=== PATIENT | male | born 1955 | race Caucasian/White ===

== ENCOUNTER 2016-08-03 09:43 | Observation (INO) | payer OTHER ==
[~2016-08-03] VITALS: Ht 167.6 cm; Wt 96.2 kg
[~2016-08-03 09:43] MED LIST: ACHD5005 PO; ADV1DS IH; ALBU17AE3 IH; ATOR20TA66 PO; CEFU250T11 PO; CLOB15CR2 TP; CLOB15CR3 TP; FLUO20CA25 PO; HYDR200T46 PO; LEVO750T24 PO; MELO-198 PO; MTF500T PO; PRAV40TA PO; PRD20T PO; PRD50T PO; RNT150T PO; TRAM50TA2 PO
[2016-08-03] MEDS ORDERED: PATIENT MAY USE OWN MEDS, ALL PO SCH (10:30)
[2016-08-03] MEDS ORDERED: DOCUSATE SODIUM 100 MG (COLACE) CAP PO PRN (10:30)
--- OUTSIDE RECORDS SUMMARY | 2016-08-03 10:49 | XMS REPORT | Continuity of Care Document ---
Author Author [facility] Organization [facility] Address Unknown Phone Unavailable Care Team Providers Care Facer Operator Name Role Phone JOSE F VALLEJO MD PCP Insurance Providers Payer Name Policy Number Subscriber Name Relationship Self Pay Emerald Maguire 18 Self / Same As Patient Advance Directives Directive Response Recorded Date/Time Advance Directives No 08/22/14 12:57pm Health Care Power of Safety And Health Manager No 08/22/14 12:57pm Organ Donor Yes 08/22/14 12:57pm Resuscitation Status Full Code 08/22/14 12:57pm Problems No known problems or medical conditions. Medications Medication Dose Route Sig Days/Qty Instructions Order Date Discontinued Date Status Hydroxychloroquine Sulfate 400 Mg PO TWICE A DAY 04/03/12 12/12/13 Discontinued Ranitidine HCl 1 Tab PO BEDTIME 30 Qty 04/03/12 10/30/13 Discontinued Fluoxetine HCl (Prozac) 1 Each PO DAILY 04/03/12 12/12/13 Discontinued Acetaminophen/Hydrocodone Bitart 1 - 2 Each PO EVERY 6 HOURS PRN 14 Qty 04/03/12 12/12/13 Discontinued Prednisone 50 Mg PO DAILY 5 Days 04/03/12 10/30/13 Discontinued Salmeterol Xinafoate/Fluticasone 1 Puff IH TWICE A DAY 10/30/13 Active Albuterol 2 Puff IH EVERY 6 HOURS PRN SHORTNESS OF BREATH NEEDED FOR SHORTNESS OF BREATH 10/30/13 Active Clobetasol Propionate 0 TP TWICE A DAY 10/30/13 12/12/13 Discontinued Meloxicam (Mobic) 1 Each PO TWICE A DAY PRN MILD PAIN 10/30/1312/12 Discontinued Metformin HCl (Glucophage) 500 Mg PO TWICE A DAY 10/30/13 Active Clobetasol Propionate TP TWICE A DAY 12/13/13 08/22/14 Discontinued Hydroxychloroquine Sulfate 200 Mg PO DAILY 08/22/14 Active Atorvastatin 20 Mg PO DAILY 08/22/14 Active Social History Social History Problem Response Recorded Date/Time Alcohol Use Denies Use 12/12/2013 10:36pm Recreational Drug Use No 12/12/2013 10:36pm Recent Foreign Travel No 12/12/2013 10:36pm Recent Infectious Disease Exposure No 12/12/2013 10:36pm Hospitalization with Isolation Denies 12/14/2013 12:20pm Smoking Status Current Everyday Smoker 08/22/2014 1:00pm Query Response Start Date Stop Date Smoking Status Current Everyday Smoker Hospital Discharge Instructions No hospital discharge instructions. Plan of Care No plan of care. Functional Status No functional status results. Allergies, Adverse Reactions, Alerts Allergen Type Severity Reaction Status Last Updated No Known Drug Allergies Active 09/10/10 Immunizations Name Given Type Date of Pneumonia Vaccine 06/01/13 Historical Date of Influenza Vaccine 05/31/14 Historical Vital Signs Acute Vital Signs Vital Response Date/Time Temperature (Fahrenheit) 98.0 degrees F (97.6 - 99.5) Temperature (Calculated Celsius) 36.34676 degrees C (36.4 - 37.5) Temperature Source Tympanic Pulse Rate (adult) 97 bpm (60 - 90) Respiratory Rate 12 bpm (12 - 24) O2 Sat by Pulse Oximetry 90 % (88 - 100) Blood Pressure 128/82 mm Hg Blood Pressure 128/82 mm Hg Pain Pain Intensity 0 Pain Pain Intensity 0 Height (Feet) 5 feet Height (Inches) 6.00 inches Height (Calculated Centimeters) 167.877693 cm Weight (Pounds) 217 pounds Weight (Ounces) 0.5 oz Weight (Calculated Grams) 57129.720 gm Weight (Calculated Kilograms) 98.643032 kilograms Height 5 ft 6 in Weight 217 lb Body Mass Index 35.0 kg/m^2 Results Laboratory Results Test Name Result Units Flags Reference Collection Date/Time Result Date/ Time Comments Glucometer 132 MG/DL H 70-110 08/22/2014 12:44pm 08/22/2014 12:59pm Procedures Procedure Status Date Provider(s) Diagnostic colonoscopy completed 08/22/14 ROHITH WALKER DO Encounters Encounter Location Date/Time Registered [facility] 08/22/14 12:03pm Registered Clinic [facility] 08/21/14 5:52am
[2016-08-03 11:24] LABS: BASOPHILS % (AUTO) 0 % (0-10); EOSINOPHILS % (AUTO) 0 % (0-10); LYMPHOCYTES # (AUTO) 1.1 X 10^3 (1.0-4.0); LYMPHOCYTES % (AUTO) 8 % (12-44); MEAN CORPUSCULAR HEMOGLOBIN 31 PG (25-34); MEAN CORPUSCULAR HGB CONC 34 G/DL (32-36); MEAN CORPUSCULAR VOLUME 90 FL (80-99); MEAN PLATELET VOLUME 10.6 FL (7.4-10.4); MONOCYTES # (AUTO) 0.6 X 10^3 (0.0-1.0); MONOCYTES % (AUTO) 4 % (0-12); NEUTROPHILS # (AUTO) 12.5 X 10^3 (1.8-7.8); NEUTROPHILS % (AUTO) 87 % (42-75); PLATELET COUNT 209 10^3/uL (130-400); RED BLOOD COUNT 4.69 10^6/uL (4.35-5.85); RED CELL DISTRIBUTION WIDTH 12.6 % (10.0-14.5); WHITE BLOOD COUNT 14.3 10^3/uL (4.3-11.0)
[2016-08-03] MEDS: methylPREDNISolone 125 MG (Solu-MEDROL) VIAL IVP SCH ×3 (11:34→23:47)
[2016-08-03 11:44] LABS: BAND NEUTROPHILS 2 %; BASOPHILS % (MANUAL) 0 %; EOSINOPHILS % (MANUAL) 0 %; LYMPHOCYTES % (MANUAL) 10 %; NEUTROPHILS % (MANUAL) 83 %
[2016-08-03 11:48] LABS: ALANINE AMINOTRANSFERASE 41 U/L (0-55); ALBUMIN 3.7 G/DL (3.2-4.5); ANION GAP 13 MMOL/L (5-14); ASPARTATE AMINO TRANSFERASE 22 U/L (5-34); BILIRUBIN,TOTAL 0.4 MG/DL (0.1-1.0); BLOOD UREA NITROGEN 19 MG/DL (7-18); BUN/CREATININE RATIO 23; CARBON DIOXIDE 20 MMOL/L (21-32); CHLORIDE 104 MMOL/L (98-107); CREATININE SERUM 0.81 MG/DL (0.60-1.30); GFR ESTIMATED > 60; GLUCOSE 205 MG/DL (70-105); POTASSIUM 3.5 MMOL/L (3.6-5.0); SODIUM 137 MMOL/L (135-145); TOTAL PROTEIN 7.3 G/DL (6.4-8.2)
[2016-08-03 12:00] VITALS: BP 150/81
[2016-08-03] MEDS ORDERED: NS 100 ML (IVPB) BAG IV ONE (12:00)
[2016-08-03] MEDS ORDERED: IOHEXOL 350 MG/ML 100 ML (OMNIPAQUE 350) VIAL IV ONE (12:00)
[2016-08-03] MEDS ORDERED: FLU TRIvalent (5 YOA+) 2016-17 (AFLURIA) 0.5 ML IM ONE (12:15)
[2016-08-03] MEDS ORDERED: DOXY100T2 PO (12:46)
[2016-08-03] MEDS ORDERED: PIRO20CA2 PO (12:46)
[2016-08-03] MEDS ORDERED: LISI-552 PO (12:46)
[2016-08-03] MEDS ORDERED: BUDE90AE2 IH (12:46)
[2016-08-03] MEDS ORDERED: RT-ALBUINH IH (12:46)
[2016-08-03] MEDS ORDERED: ATOR40TA70 PO (12:46)
[2016-08-03] MEDS ORDERED: PRD50T PO (12:46)
[2016-08-03] MEDS ORDERED: NS IV 1000 ML 1,000 ML IV SCH ×2 (13:30→13:45)
[2016-08-03] MEDS ORDERED: CATHETER FLUSH 10 ML SYR IV PRN (14:00)
--- NOTE | 2016-08-03 15:06 | Diagnostic Imaging Report ---
PROCEDURE: CT chest with contrast only. TECHNIQUE: Multiple contiguous axial images were obtained through the chest after administration of intravenous contrast. INDICATION: Hypoxia, pulmonary fibrosis. COMPARISON: CT chest of 09/16/13. FINDINGS: Lungs and airway: Subpleural reticular opacities with mixed groundglass attenuation involving the bilateral upper lobes has not significantly changed. Reticular opacities with a small region of stacked subpleural cystic change in the left lower lobe has mildly progressed and is compatible with pulmonary fibrosis. Additional diffuse interstitial opacities throughout the lung bases are similar without additional foci of pulmonary fibrosis. Mild traction bronchiolectasis within the left lower lobe in the region of fibrosis. Otherwise, no foci of traction bronchiectasis are seen. The subpleural/peripheral locations in the lung bases are relatively spared. No pulmonary mass or suspicious nodule. Pleura: No pleural effusion or pneumothorax. Heart and mediastinum: Visualized thyroid is normal. No supraclavicular or axillary lymphadenopathy. Multiple borderline enlarged mediastinal lymph nodes are stable with a few of the larger lymph nodes as follows: 1.2 x 2.0 cm right lower paratracheal lymph node, 2 adjacent prevascular lymph nodes measuring 1.8 x 1.1 cm and a subcarinal lymph node measuring 1.2 x 1.5 cm. Borderline enlarged right hilar lymph nodes are also stable. No new intrathoracic lymphadenopathy. Normal heart size without pericardial effusion. Normal-caliber thoracic aorta. Coronary artery calcifications are present. Upper abdomen: Partially imaged hypodensity in the upper pole of the left kidney appears similar to prior CT but is incompletely evaluated. Remainder of the upper abdomen is within normal limits. Musculoskeletal: No concerning osseous lesions in the thorax. IMPRESSION: 1. Stable mid and upper lung zone reticular opacities with small region of fibrosis in the superior aspect of the left lower lobe. Findings are inconsistent with UIP. Overall, findings would favor fibrotic NSIP or chronic hypersensitivity pneumonitis. 2. Mildly enlarged mediastinal lymph nodes are stable and likely chronic reactive lymph nodes. 3. Coronary artery disease. 4. Partially imaged hypodensity in the upper pole of the right kidney. Consider renal ultrasound for further evaluation to ensure this is a cyst. Dictated by: Dictated on workstation # [id number]
[2016-08-03] MEDS ORDERED: RT-ALBUTEROL/IPRATROPIUM 3 ML (DUONEB) VIAL INH PRN (15:30)
[2016-08-03 16:00] VITALS: BP 138/82
[2016-08-03] MEDS: RT-ALBUTEROL/IPRATROPIUM 3 ML (DUONEB) VIAL INH SCH (19:10)
[2016-08-03 20:00] VITALS: BP 108/68
[2016-08-04] VITALS: BP 100/62
[2016-08-04 04:00] VITALS: BP 129/75
[2016-08-04] MEDS: methylPREDNISolone 125 MG (Solu-MEDROL) VIAL IVP SCH ×4 (05:08→23:35)
[2016-08-04] MEDS: RT-ALBUTEROL/IPRATROPIUM 3 ML (DUONEB) VIAL INH SCH ×3 (07:13→22:10)
[2016-08-04 08:00] VITALS: BP 132/76
[2016-08-04 12:15] VITALS: BP 128/72
[2016-08-04] MEDS: DOXYCYCLINE 100 MG (VIBRAMYCIN) TABLET PO SCH ×2 (12:29→23:35)
[2016-08-04] MEDS: IBUPROFEN 800 MG (MOTRIN) TAB PO SCH ×2 (12:29→17:34)
[2016-08-04] MEDS: lisINopril 20 MG (ZESTRIL) TAB PO SCH (12:30)
--- NOTE | 2016-08-04 13:23 | Diagnostic Imaging Report ---
EXAM: Bilateral kidney ultrasound. INDICATION: Cyst on the partially visualized on CT scan of the chest from 08/03/2016. FINDINGS: The right kidney is 11.2 and the left kidney is 10.9 cm in length. No hydronephrosis or focal lesion. In the upper pole, there is a 1.9 x 2.2 cm simple-appearing cyst. No solid mass identified. No hydronephrosis. The urinary bladder is empty and is not seen. IMPRESSION: Upper pole minimally complicated cyst in the right kidney. No solid mass identified. Dictated by: Dictated on workstation # [id number]
[2016-08-04] MEDS: RT-ADVAIR HFA 115/21 MCG PER PUFF IH SCH ×2 (14:11→22:10)
--- NOTE | 2016-08-04 15:56 | History & Physicial ([facility]) ---
HPI History of Present Illness: 61 yo M that presented to clinic to Dr Reyez yesterday with increasing shortness of breath. Patient has known pulmonary fibrosis but has had worsening symptoms in the last several weeks. States that just prior to kiera he started having more coughing and shortness of breath. Denies missing any doses of medication but states that he ran out of advair. Denies any fever or chills. + productive cough. Been over 2 years since his last admission for lung symptoms. Denies any URI symptoms. Long h/o tobacco use. Has Rheumatoid arthritis that is not currently being treated because of financial reasons. No home oxygen use. No recent change in medications. Decrease in endurance. States that he gets very short of breath with any activity. Denies any hemoptysis. No sick contacts recently. Denies chest pain or abdominal pain. Source: patient, RN/MD, old records Exam Limitations: no limitations Date seen by provider: Aug 04, 2016 Time seen by provider: 10:15 Attending Physician Kaya Reyez MD PCP Kaya Reyez MD Consult Date of Admission Aug 03, 2016 at 10:45 Home Medications Home Medications Reviewed patient Home Medication Reconciliation Form Allergies Coded Allergies: No Known Drug Allergies (Unverified , 09/10/10) [id number] Hx Patient Social History Living Status: lives home alone Alcohol Use: Denies Use Recreational Drug Use: No Smoking Status: Former Smoker Type Used: Cigars Recent Foreign Travel: No Contact w/other who traveled: No Physical Abuse Screen: No Sexual Abuse: No Immunizations Up To Date Date of Pneumonia Vaccine: Jun 01, 2013 Date of Influenza Vaccine: May 31, 2014 Past Medical History Rhuematoid Arthritis Pulmonary Fibrosis follows with Dr Stokes Hypertension Non Insulin Dependent DM Family Medical History Family History: Cancer G8 SISTER Family history: Diabetes mellitus G8 SISTER Review of Systems ([facility]) Constitutional: no symptoms reportedNo chills, No fever, malaiseNo weakness EENTM: no symptoms reported Respiratory: cough dyspnea on exertionNo hemoptysis, No orthopnea, short of breath wheezing Cardiovascular: no symptoms reportedNo chest pain, No edema, No palpitations, No syncope Gastrointestinal: no symptoms reportedNo abdominal pain, No constipation, No diarrhea, No heartburn, No nausea, No vomiting Genitourinary: no symptoms reportedNo dysuria, No frequency, No hematuria Musculoskeletal: back pain joint pain Skin: no symptoms reportedNo lesions, No rash Psychiatric/Neurological: No Symptoms ReportedDenies Anxiety, Denies Depressed , Denies Headache, Denies Weakness Reviewed Test Results Reviewed Test Results Lab Laboratory Tests Test 08/03/16 11:12 08/03/16 11:48 08/03/16 14:10 08/03/16 15:27 Range/Units Alanine Aminotransferase (ALT/SGPT) 41 0-55 U/L Albumin 3.7 3.2-4.5 G/DL Alkaline Phosphatase 78 40-136 U/L Anion Gap 13 5-14 MMOL/L Aspartate Amino Transf (AST/SGOT) 22 5-34 U/L BUN/Creatinine Ratio 23 Band Neutrophils 2 % Basophils # (Auto) 0.0 0.0-0.1 10^3/uL Basophils % (Manual) 0 % Basophils (%) (Auto) 0 0-10 % Blood Morphology Comment NORMAL Blood Urea Nitrogen 19 H 7-18 MG/DL Calcium Level 9.0 8.5-10.1 MG/DL Carbon Dioxide Level 20 L 21-32 MMOL/L Chloride Level 104 98-107 MMOL/L Creatinine 0.81 0.60-1.30 MG/DL Eosinophils # (Auto) 0.0 0.0-0.3 10^3/uL Eosinophils % (Manual) 0 % Eosinophils (%) (Auto) 0 0-10 % Estimat Glomerular Filtration Rate > 60 Glucose Level 205 H 70-105 MG/DL Hematocrit 42 40-54 % Hemoglobin 14.3 13.3-17.7 G/DL Lymphocytes # (Auto) 1.1 1.0-4.0 X 10^3 Lymphocytes % (Manual) 10 % Lymphocytes (%) (Auto) 8 L 12-44 % Mean Corpuscular Hemoglobin 31 25-34 PG Mean Corpuscular Hemoglobin Concent 34 32-36 G/DL Mean Corpuscular Volume 90 80-99 FL Mean Platelet Volume 10.6 H 7.4-10.4 FL Monocytes # (Auto) 0.6 0.0-1.0 X 10^3 Monocytes % (Manual) 5 % Monocytes (%) (Auto) 4 0-12 % Neutrophils # (Auto) 12.5 H 1.8-7.8 X 10^3 Neutrophils % (Manual) 83 % Neutrophils (%) (Auto) 87 H 42-75 % Platelet Count 209 130-400 10^3/uL Potassium Level 3.5 L 3.6-5.0 MMOL/L Red Blood Count 4.69 4.35-5.85 10^6/uL Red Cell Distribution Width 12.6 10.0-14.5 % Sodium Level 137 135-145 MMOL/L Total Bilirubin 0.4 0.1-1.0 MG/DL Total Protein 7.3 6.4-8.2 G/DL White Blood Count 14.3 H 4.3-11.0 10^3/uL Lactic Acid Level 3.1 *H 2.8 *H 0.5-2.0 MMOL/L Glucometer 218 H 70-110 MG/DL Test 08/03/16 19:01 08/04/16 04:53 08/04/16 10:21 Range/Units Glucometer 219 H 222 H 316 H 70-110 MG/DL Radiology of Exam: 08/03/16 CT CHEST W PROCEDURE: CT chest with contrast only. TECHNIQUE: Multiple contiguous axial images were obtained through the chest after administration of intravenous contrast. INDICATION: Hypoxia, pulmonary fibrosis. COMPARISON: CT chest of 09/16/13. FINDINGS: Lungs and airway: Subpleural reticular opacities with mixed groundglass attenuation involving the bilateral upper lobes has not significantly changed. Reticular opacities with a small region of stacked subpleural cystic change in the left lower lobe has mildly progressed and is compatible with pulmonary fibrosis. Additional diffuse interstitial opacities throughout the lung bases are similar without additional foci of pulmonary fibrosis. Mild traction bronchiolectasis within the left lower lobe in the region of fibrosis. Otherwise, no foci of traction bronchiectasis are seen. The subpleural/peripheral locations in the lung bases are relatively spared. No pulmonary mass or suspicious nodule. Pleura: No pleural effusion or pneumothorax. Heart and mediastinum: Visualized thyroid is normal. No supraclavicular or axillary lymphadenopathy. Multiple borderline enlarged mediastinal lymph nodes are stable with a few of the larger lymph nodes as follows: 1.2 x 2.0 cm right lower paratracheal lymph node, 2 adjacent prevascular lymph nodes measuring 1.8 x 1.1 cm and a subcarinal lymph node measuring 1.2 x 1.5 cm. Borderline enlarged right hilar lymph nodes are also stable. No new intrathoracic lymphadenopathy. Normal heart size without pericardial effusion. Normal-caliber thoracic aorta. Coronary artery calcifications are present. Upper abdomen: Partially imaged hypodensity in the upper pole of the left kidney appears similar to prior CT but is incompletely evaluated. Remainder of the upper abdomen is within normal limits. Musculoskeletal: No concerning osseous lesions in the thorax. IMPRESSION: 1. Stable mid and upper lung zone reticular opacities with small region of fibrosis in the superior aspect of the left lower lobe. Findings are inconsistent with UIP. Overall, findings would favor fibrotic NSIP or chronic hypersensitivity pneumonitis. 2. Mildly enlarged mediastinal lymph nodes are stable and likely chronic reactive lymph nodes. 3. Coronary artery disease. 4. Partially imaged hypodensity in the upper pole of the right kidney. Consider renal ultrasound for further evaluation to ensure this is a cyst. Date of Exam: 08/04/16 RENAL BILATERAL [id number] EXAM: Bilateral kidney ultrasound. INDICATION: Cyst on the partially visualized on CT scan of the chest from 08/03/2016. FINDINGS: The right kidney is 11.2 and the left kidney is 10.9 cm in length. No hydronephrosis or focal lesion. In the upper pole, there is a 1.9 x 2.2 cm simple-appearing cyst. No solid mass identified. No hydronephrosis. The urinary bladder is empty and is not seen. IMPRESSION: Upper pole minimally complicated cyst in the right kidney. No solid mass identified. Physical Exam-([facility]) Physical Exam Vital Signs VS - Last 72 Hours, by Label 08/03/16 08/03/16 08/03/16 08/03/16 12:00 12:00 15:22 15:25 Temp 97.9 Pulse 91 Resp 20 B/P 150/81 Pulse Ox 95 95 95 O2 Delivery Room Air Room Air Room Air 08/03/16 08/03/16 08/03/16 08/03/16 16:00 19:11 20:00 21:00 Temp 98.2 98.9 Pulse 88 106 Resp 20 20 B/P 138/82 108/68 Pulse Ox 93 90 92 O2 Delivery Room Air Room Air Room Air Room Air 08/04/16 08/04/16 08/04/16 08/04/16 00:00 04:00 07:13 08:00 Temp 96.4 96.6 96.7 Pulse 79 83 86 Resp 20 20 20 B/P 100/62 129/75 132/76 Pulse Ox 93 93 93 94 O2 Delivery Room Air Room Air Room Air Room Air 08/04/16 08/04/16 08/04/16 09:00 11:16 12:15 Temp 96.6 Pulse 84 Resp 20 B/P 128/72 Pulse Ox 92 96 O2 Delivery Room Air Room Air Room Air Capillary Refill : General Appearance: WD/WN no apparent distress HEENT: PERRL/EOMI pharynx normal Neck: non-tender full range of motion supple normal inspection Respiratory: chest non-tender normal breath sounds no respiratory distress no accessory muscle use crackles rhonchi wheezing expiration Cardiovascular: normal peripheral pulses regular rate, rhythm no edema no gallop no JVD no murmurNo systolic murmur Gastrointestinal: normal bowel sounds non tender soft no organomegaly no pulsatile massNo guarding, No rebound Back: normal inspection no CVA tenderness no vertebral tenderness Extremities: normal range of motion non-tender normal inspection no calf tenderness normal capillary refill pedal edema (1+) 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 no motor/sensory deficits alert normal mood/affect oriented x 3 Skin: normal color warm/dry Lymphatic: no adenopathy Assessment/Plan Assessment/Plan Admission Dx Respiratory distress with hypoxia Pulmonary Fibrosis Rheumatoid arthritis Hypertension Non insulin dependent DM Renal mass Hypokalemia Lactic Acidosis Plan 61 yo M with known pulmonary fibrosis that presents to clinic with increasing shortness of breath with hypoxia Plan Respiratory distress with hypoxia - Start IV steroids and antibiotics - scheduled and PRN A/A nebs - Continue home advair - Encouraged ambulation and IS Pulmonary Fibrosis: See above Rheumatoid arthritis - Needs outpatient follow up with Rheum Hypertension: Controlled, continue home meds Non insulin dependent DM - A1c pending, continue home metformin Renal mass - Abnormal CT scan, Renal US shows simple cystic mass on R upper pole of kidney, no f/u needed Hypokalemia - Replaced today, repeat BMP in AM Lactic Acidosis - fluid hydration, will repeat LA level Dispo: Likely home tomorrow DVT PPX: lovenox 40mg FEN: CHO diet Diagnosis/Problems: Clinical Quality Measures DVT/VTE Risk/Contraindication: Risk Factor Score Per Nursin RFS Level Per Nursing on Admit: 4+=Very High FÁTIMA BRADY MD Aug 04, 2016 15:56
[2016-08-04] MEDS ORDERED: KCL 20 MEQ TAB (K-DUR) PO NR (16:00)
[2016-08-04] MEDS ORDERED: ENOXAPARIN 40 MG/0.4 ML (LOVENOX) SYR SC SCH (16:00)
[2016-08-04 16:30] VITALS: BP 122/71
[2016-08-04] MEDS: metFORMIN 500 MG (GLUCOPHAGE) TAB PO SCH (17:34)
[2016-08-04 20:58] VITALS: BP 116/68
[2016-08-04] MEDS ORDERED: ATORVASTATIN 40 MG (LIPITOR) TABLET PO SCH (21:00)
[2016-08-05] VITALS: BP 120/69
[2016-08-05 04:00] VITALS: BP 131/67
[2016-08-05 04:48] LABS: BASOPHILS % (AUTO) 0 % (0-10); EOSINOPHILS % (AUTO) 0 % (0-10); LYMPHOCYTES # (AUTO) 1.2 X 10^3 (1.0-4.0); LYMPHOCYTES % (AUTO) 9 % (12-44); MEAN CORPUSCULAR HEMOGLOBIN 31 PG (25-34); MEAN CORPUSCULAR HGB CONC 34 G/DL (32-36); MEAN CORPUSCULAR VOLUME 91 FL (80-99); MEAN PLATELET VOLUME 10.6 FL (7.4-10.4); MONOCYTES # (AUTO) 0.5 X 10^3 (0.0-1.0); MONOCYTES % (AUTO) 4 % (0-12); NEUTROPHILS % (AUTO) 88 % (42-75); PLATELET COUNT 234 10^3/uL (130-400); RED BLOOD COUNT 4.14 10^6/uL (4.35-5.85); RED CELL DISTRIBUTION WIDTH 12.5 % (10.0-14.5); WHITE BLOOD COUNT 13.7 10^3/uL (4.3-11.0)
[2016-08-05 05:09] LABS: ANION GAP 10 MMOL/L (5-14); BLOOD UREA NITROGEN 26 MG/DL (7-18); BUN/CREATININE RATIO 34; CALCIUM 8.3 MG/DL (8.5-10.1); CARBON DIOXIDE 20 MMOL/L (21-32); CHLORIDE 107 MMOL/L (98-107); CREATININE SERUM 0.76 MG/DL (0.60-1.30); GFR ESTIMATED > 60; GLUCOSE 262 MG/DL (70-105); POTASSIUM 4.1 MMOL/L (3.6-5.0); SODIUM 137 MMOL/L (135-145)
[2016-08-05] MEDS ORDERED: NS IV 1000 ML 1,000 ML IV ONE (05:30)
[2016-08-05] MEDS: methylPREDNISolone 125 MG (Solu-MEDROL) VIAL IVP SCH ×2 (06:31→11:15)
[2016-08-05] MEDS: metFORMIN 500 MG (GLUCOPHAGE) TAB PO SCH (07:02)
[2016-08-05] MEDS: RT-ALBUTEROL/IPRATROPIUM 3 ML (DUONEB) VIAL INH SCH ×2 (07:02→14:23)
[2016-08-05] MEDS: RT-ADVAIR HFA 115/21 MCG PER PUFF IH SCH (07:02)
[2016-08-05] MEDS: IBUPROFEN 800 MG (MOTRIN) TAB PO SCH ×2 (07:03→11:15)
[2016-08-05 08:20] VITALS: BP 127/59
[2016-08-05] MEDS: lisINopril 20 MG (ZESTRIL) TAB PO SCH (09:16)
[2016-08-05 09:42] LABS: ABG BASE EXCESS -6.1 MMOL/L (-2.5-2.5); ABG HCO3 18 MMOL/L (23-27); ABG OXYGEN SATURATION 93 % (94-100); ABG PCO2 30 MMHG (35-45); ABG PH 7.39 (7.37-7.43); ABG PO2 64 MMHG (79-93); ABG TCO2 18.7 MMOL/L (21.0-31.0)
[2016-08-05 09:43] LABS: ALLENS TEST YES-POS; PATIENT TEMP 98.1
[2016-08-05] MEDS: DOXYCYCLINE 100 MG (VIBRAMYCIN) TABLET PO SCH (11:14)
[2016-08-05 12:00] VITALS: BP 135/67
[2016-08-05] MEDS ORDERED: PRD10T PO (12:38)
[2016-08-05] MEDS ORDERED: GLIP10TA13 PO (12:42)
--- NOTE | 2016-08-05 12:43 | Discharge Instructions ---
Discharge [facility] Discharge Medications New, Converted or Re-Newed RX: Transmitted to Pharmacy ([facility]) New Medications: Glipizide (Glipizide) 10 Mg Tablet 10 MG PO DAILY #30 TAB Prednisone (Prednisone) 10 Mg Tab 10 MG PO DAILY Take 5 x 3 Day, 4tabx 3 Day, 3tabs x 3day, 2tabs x 3day, 1tab x 3day and 1/2tab x 4 days. #47 TAB Continued Medications: Albuterol Sulfate (Ventolin Hfa) 18 Gm Hfa.aer.ad 2-4 PUFF IH Q4H PRN SHORTNESS OF BREATH INHALER Atorvastatin Calcium (Atorvastatin Calcium) 40 Mg Tablet 40 MG PO DAILY TAB Budesonide (Pulmicort Flexhaler) 90 Mcg Aer.pow.ba 2 PUFF IH BID GM Doxycycline Hyclate (Doxycycline Hyclate) 100 Mg Tablet 100 MG PO Q12H FILLED 08/02/15 #14 FOR A 7 DAY THERAPY Fluticasone/Salmeterol (Advair 250/50 Diskus) 250 Mcg/50 Mcg Inh 1 PUFF IH BID Hydroxychloroquine Sulfate (Plaquenil Nf) 200 Mg Tab 400 MG PO DAILY TAKES 2 (200 MG) TABLETS TAB Lisinopril (Lisinopril) 20 Mg Tablet 20 MG PO DAILY TAB Piroxicam (Piroxicam) 20 Mg Capsule 20 MG PO DAILY CAP Discontinued Medications: Metformin Hcl (Metformin 500 Mg) 500 Mg Tablet 500 MG PO BID Prednisone (Prednisone) 50 Mg Tab 50 MG PO DAILY FILLED 08/02/15 #5 FOR A 5 DAY THERAPY Days 5 Patient Instructions Goal/Follow Up Appt: You have a hospital follow up appt with Dr Gaitan on Aug 15 @ 1100 AM Then you will follow up with Dr Reyez your PCP Patient Instructions: - It is important to review your medications because some of them have been adjusted - Continue daily walking to help open up your lungs - Make sure you complete your antibiotics Return to The Hospital For: Worsening shortness of breath Chest pain Unable to take medications Activity & Diet Discharge Diet: ADA Diet Activity as Tolerated: Yes FÁTIMA BRADY MD Aug 05, 2016 12:41
--- NOTE | 2016-08-05 12:45 | Discharge Summary ---
Diagnosis/Chief Complaint Date of Admission Aug 03, 2016 at 10:45 Date of Discharge Aug 05 2016 Admission Diagnosis Admission Diagnosis Respiratory distress with hypoxia Pulmonary Fibrosis Rheumatoid arthritis Hypertension Non insulin dependent DM Renal mass Hypokalemia Lactic Acidosis Discharge Diagnosis Same as above Chief Complaint/HPI Chief Complaint/HPI 61 yo M that presented to clinic to Dr Reyez yesterday with increasing shortness of breath. Patient has known pulmonary fibrosis but has had worsening symptoms in the last several weeks. States that just prior to kiera he started having more coughing and shortness of breath. Denies missing any doses of medication but states that he ran out of advEmbark. Denies any fever or chills. + productive cough. Been over 2 years since his last admission for lung symptoms. Denies any URI symptoms. Long h/o tobacco use. Has Rheumatoid arthritis that is not currently being treated because of financial reasons. No home oxygen use. No recent change in medications. Decrease in endurance. States that he gets very short of breath with any activity. Denies any hemoptysis. No sick contacts recently. Denies chest pain or abdominal pain. Discharge Summary-Simple/Stand Procedures CT Chest: No acute changes, previous pulm fibrosis, no signs of acute PNA, renal mass seen Renal US: simple cystic mass Consultations Discharge Physical Examination Allergies: Coded Allergies: No Known Drug Allergies (Unverified , 09/10/10) Vitals & I&Os Vital Sign - Last 12Hours Date Time Temp Pulse Resp B/P Pulse Ox O2 Delivery O2 Flow Rate FiO2 08/05/16 08:20 98.1 104 22 127/59 95 Room Air Intake and Output 08/05/16 00:00 Intake Total 1980 ml Output Total 650 ml Balance 1330 ml General Appearance: Alert, Oriented X3, Cooperative, No Acute Distress Respiratory: Normal Air Movement, Other (Mild rhonchi at the bases bilaterally) Cardiovascular: Regular Rate, Normal S1, Normal S2, No Murmurs Abdominal: Normal Bowel Sounds, Soft, No Tenderness, No Hepatosplenomegaly, No Masses Extremities: No Clubbing, No Cyanosis, No Edema, No Tenderness/Swelling Skin: No Rashes, No Breakdown Neuro: Normal Gait, Normal Speech, Strength at 5/5 X4 Ext, Sensation Intact, Cranial Nerves 3-12 NL Psych/Mental Status: Mental Status NL, Mood NL Hospital Course See final discharge diagnosis. Radiology Reviewed of Exam: 08/03/16 CT CHEST W PROCEDURE: CT chest with contrast only. TECHNIQUE: Multiple contiguous axial images were obtained through the chest after administration of intravenous contrast. INDICATION: Hypoxia, pulmonary fibrosis. COMPARISON: CT chest of 09/16/13. FINDINGS: Lungs and airway: Subpleural reticular opacities with mixed groundglass attenuation involving the bilateral upper lobes has not significantly changed. Reticular opacities with a small region of stacked subpleural cystic change in the left lower lobe has mildly progressed and is compatible with pulmonary fibrosis. Additional diffuse interstitial opacities throughout the lung bases are similar without additional foci of pulmonary fibrosis. Mild traction bronchiolectasis within the left lower lobe in the region of fibrosis. Otherwise, no foci of traction bronchiectasis are seen. The subpleural/peripheral locations in the lung bases are relatively spared. No pulmonary mass or suspicious nodule. Pleura: No pleural effusion or pneumothorax. Heart and mediastinum: Visualized thyroid is normal. No supraclavicular or axillary lymphadenopathy. Multiple borderline enlarged mediastinal lymph nodes are stable with a few of the larger lymph nodes as follows: 1.2 x 2.0 cm right lower paratracheal lymph node, 2 adjacent prevascular lymph nodes measuring 1.8 x 1.1 cm and a subcarinal lymph node measuring 1.2 x 1.5 cm. Borderline enlarged right hilar lymph nodes are also stable. No new intrathoracic lymphadenopathy. Normal heart size without pericardial effusion. Normal-caliber thoracic aorta. Coronary artery calcifications are present. Upper abdomen: Partially imaged hypodensity in the upper pole of the left kidney appears similar to prior CT but is incompletely evaluated. Remainder of the upper abdomen is within normal limits. Musculoskeletal: No concerning osseous lesions in the thorax. IMPRESSION: 1. Stable mid and upper lung zone reticular opacities with small region of fibrosis in the superior aspect of the left lower lobe. Findings are inconsistent with UIP. Overall, findings would favor fibrotic NSIP or chronic hypersensitivity pneumonitis. 2. Mildly enlarged mediastinal lymph nodes are stable and likely chronic reactive lymph nodes. 3. Coronary artery disease. 4. Partially imaged hypodensity in the upper pole of the right kidney. Consider renal ultrasound for further evaluation to ensure this is a cyst. Date of Exam: 08/04/16 RENAL BILATERAL [id number] EXAM: Bilateral kidney ultrasound. INDICATION: Cyst on the partially visualized on CT scan of the chest from 08/03/2016. FINDINGS: The right kidney is 11.2 and the left kidney is 10.9 cm in length. No hydronephrosis or focal lesion. In the upper pole, there is a 1.9 x 2.2 cm simple-appearing cyst. No solid mass identified. No hydronephrosis. The urinary bladder is empty and is not seen. IMPRESSION: Upper pole minimally complicated cyst in the right kidney. No solid mass identified. Discussion & Recommendations 61 yo M with known RA and pulmonary fibrosis that was admitted for hypoxia. Found to have Lactic acidosis that did not resolve so it is likely chronic. Patient did not qualify for oxygen after ambulatory study. Renal mass examined and seemed to be simple cyst on Renal US. No follow up needed. ABG showed Chronic respiratory acidosis with metabolic compensation. Metformin was discontinued due to lactic acidosis. Repeat lactic acid in 2-4 weeks. Patient needs follow up with pulmonary as outpatient. Discharged with prolonged steroid taper and antibiotics. Discharge Condition at discharge stable Instructions to patient/family Please see electonic discharge instructions given to patient. Discharge Medications Reviewed and agree with Discharge Medication list on patient's Discharge Instruction sheet Clinical Quality Measures DVT/VTE Risk/Contraindication: Risk Factor Score Per Nursin RFS Level Per Nursing on Admit: 4+=Very High Copy Copies To 1: JOSE F REYEZ MD, HOLLY R MD Aug 05, 2016 12:45
[2016-08-05 15:20] VITALS: BP 135/67
== END 2016-08-05 15:24 | disposition home or self-care (01) ==
LOC: 4TH 10:45 → UNDOADMOB 10:45 → 4TH 11:00
PROVIDERS: ADMIT Family Medicine; ATTEND Family Medicine
DX: R06.00 Dyspnea, unspecified (principal); R09.02 Hypoxemia; J84.10 Pulmonary fibrosis, unspecified; M06.9 Rheumatoid arthritis, unspecified; I10 Essential (primary) hypertension; E11.9 Type 2 diabetes mellitus without complications; N28.89 Other specified disorders of kidney and ureter; E87.6 Hypokalemia; E87.2 Acidosis
CPT/HCPCS: 36415; 71260; 76770; 80048; 80053; 82805; 82962; 83036; 83605; 85007; 85025; 85027; 87040; 94640; 94664; 94760; 94761; 99211; G0378

== ENCOUNTER 2017-02-27 08:01 | Outpatient (RCR) | payer OTHER ==
[~2017-02-27 08:01] MED LIST changes: +ATOR40TA70 PO; +BUDE90AE2 IH; +DOXY100T2 PO; +GLIP10TA13 PO; +LISI-552 PO; +PIRO20CA2 PO; +PRD10T PO; +RT-ALBUINH IH
[2017-04-19] MEDS ORDERED: AZIT250T5 PO (13:18)
[2017-04-19] MEDS ORDERED: PRD20T PO (13:18)
[2017-04-19] MEDS ORDERED: ALBU2.5V4 IH (13:28)
== END 2017-04-29 | disposition home or self-care (01) ==
LOC: RT 08:01
PROVIDERS: ATTEND Internal Medicine Critical Care Medicine
DX: J44.9 Chronic obstructive pulmonary disease, unspecified (principal); J84.10 Pulmonary fibrosis, unspecified
CPT/HCPCS: 99211

== ENCOUNTER 2017-04-19 12:06 | Emergency (ER) | payer OTHER ==
[~2017-04-19] VITALS: Ht 170.2 cm; Wt 99.8 kg
--- OUTSIDE RECORDS SUMMARY | 2017-04-19 12:13 | XMS REPORT ---
Author Author JOSE F VALLEJO [facility] eClinicalWorks Address Unknown Phone Unavailable Care Team Providers Care Truck Mechanic Name Role Phone JOSE F VALLEJO Unavailable Allergies No Known Allergies Problems Problem Type Condition Code Onset Dates Condition Status Assessment 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 Active Problem Psoriasis L40.9 Active Problem Vision loss, left eye H54.62 Active Assessment Hyperlipidemia E78.5 Active Problem 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 Active Problem Hyperlipidemia E78.5 Active Problem Essential hypertension I10 Active Problem Chronic obstructive pulmonary disease, unspecified J44.9 Active Problem Idiopathic pulmonary fibrosis J84.112 Active Problem Hematochezia K92.1 Active Problem Type 2 diabetes mellitus without complication E11.9 Active Medications No Known Medications Procedures Procedure Coding System Code Date LIPID PANEL CPT-4 04519 Sep 11, 2015 COMPREHEN METABOLIC PANEL CPT-4 23107 Sep 11, 2015 COMPLETE CBC W/AUTO DIFF WBC CPT-4 40817 Sep 11, 2015 VENIPUNCT, ROUTINE* CPT-4 54513 Sep 11, 2015 Results Name Result Date Reference Range Unit Abnormality Flag ROUTINE VENIPUNCTURE Summary Purpose eClinicalWorks Submission
--- OUTSIDE RECORDS SUMMARY | 2017-04-19 12:13 | XMS REPORT ---
Author Author JOSE F VALLEJO Organization [facility] Address [address] [place] [address] Care Team Providers Care Food Safety Specialist Name Role Phone JOSE F VALLEJO Unavailable PROBLEMS Type Condition ICD9-CM Code [id number] Code Onset Dates Condition Status SNOMED Code Problem Chronic obstructive pulmonary disease, unspecified J44.9 Active 05190050 Problem Psoriasis L40.9 Active 6017656 Problem Hyperlipidemia E78.5 Active 57677732 Problem Lactic acidosis E87.2 Active 76937270 Problem Renal cyst, right N28.1 Active 24573046 Problem Idiopathic pulmonary fibrosis J84.112 Active 248438093 Problem Tobacco use Z72.0 Active 109008987 Problem Essential hypertension I10 Active 35608193 Problem 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 Active 437863271 Problem Vision loss, left eye H54.62 Active 91001244 Problem Hematochezia K92.1 Active 127687591 Problem Type 2 diabetes mellitus without complication E11.9 Active 71943376 ALLERGIES Unknown Allergies SOCIAL HISTORY No smoking Hx information available PLAN OF CARE VITAL SIGNS MEDICATIONS Medication Instructions Dosage Frequency Start Date End Date Duration Status Hydrocodone-Acetaminophen 5-325 MG Orally every 6 hrs 1 tablet as needed 6h Jul, 28 days Active RESULTS No Results PROCEDURES No Known procedures IMMUNIZATIONS No Known Immunizations
--- OUTSIDE RECORDS SUMMARY | 2017-04-19 12:13 | XMS REPORT ---
Author Author JOSE F VALLEJO [facility] eClinicalWorks Address Unknown Phone Unavailable Care Team Providers Care Supervisor/Port Director Name Role Phone JOSE F VALLEJO CP Unavailable Allergies, Adverse Reactions, Alerts Substance Reaction Event Type Naprosyn Info Not Available Drug Allergy Celebrex Info Not Available Drug Allergy Problems Problem Type Condition Code Onset Dates Condition Status Assessment Type 2 diabetes mellitus without complication E11.9 Active Problem Psoriasis L40.9 Active Problem Vision loss, left eye H54.62 Active Problem 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 Active Problem Hyperlipidemia E78.5 Active Problem Essential hypertension I10 Active Problem Chronic obstructive pulmonary disease, unspecified J44.9 Active Problem Idiopathic pulmonary fibrosis J84.112 Active Problem Hematochezia K92.1 Active Problem Type 2 diabetes mellitus without complication E11.9 Active Assessment Idiopathic pulmonary fibrosis J84.112 Active Assessment Hyperlipidemia E78.5 Active Assessment Psoriasis L40.9 Active Assessment Essential hypertension I10 Active Assessment 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 Active Medications Medication Code System Code Instructions Start Date End Date Status Dosage Metformin HCl [facility] [address]-35 500 MG Orally Twice a day Aug 17, 2015 1 tablet with meals Calcipotriene [facility] [address]-60 0.005 % Externally Twice a day October 28, 2015 1 application to affected area Piroxicam [facility] [address]-58 20 mg Orally Once a day 1 capsule with food Clobetasol Propionate [facility] [address]-45 0.05 % Externally Twice a day as needed for psoriasis January 09, 2015 1 application to affected area Hydroxychloroquine Sulfate [facility] [address]-65 200 mg Orally Once a day 2 tablet with food or milk Lipitor [facility] [address]-81 40 mg Orally Once a day 1 tablet Lisinopril [facility] [address]-69 20 mg Orally Once a day Sep 09, 2015 1 tablet Hydrocodone-Acetaminophen [facility] [address]-09 5-325 MG Orally every 6 hrs Aug 12, 2015 1 tablet as needed Advair Diskus [facility] [address]-70 250-50 MCG/DOSE Inhalation Twice a day, approximately 12 hrs apart 1 puff Ventolin HFA [facility] [address]-83 108 (90 Base) MCG/ACT Inhalation every 4 hrs 2-4 puffs as needed Procedures Procedure Coding System Code Date MICROALBUMIN, SEMIQUANT CPT-4 26331 May 05, 2016 Office Visit, Est Pt., Level 3 CPT-4 65555 May 05, 2016 GLYCATED HEMOGLOBIN TEST CPT-4 05786 May 05, 2016 Vital Signs Date/Time: May 05, 2016 Cardiac Monitoring Heart Rate 76 bpm Weight 216 lbs Height 67 in BMI 33.83 Index Blood Pressure Diastolic 92 mmHg Blood Pressure Systolic 142 mmHg Results No Known Results Summary Purpose eClinicalWorks Submission
--- OUTSIDE RECORDS SUMMARY | 2017-04-19 12:13 | XMS REPORT ---
Author Author JOSE F VALLEJO [facility] eClinicalWorks Address Unknown Phone Unavailable Care Team Providers Care Collection Team Lead Name Role Phone JOSE F VALLEJO Unavailable Allergies No Known Allergies Problems Problem Type Condition Code Onset Dates Condition Status Problem Vision loss, left eye H54.62 Active Problem Hyperlipidemia E78.5 Active Problem Hematochezia K92.1 Active Problem 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 Active Problem Idiopathic pulmonary fibrosis J84.112 Active Problem Psoriasis L40.9 Active Problem Type 2 diabetes mellitus without complication E11.9 Active Problem Chronic obstructive pulmonary disease, unspecified J44.9 Active Medications Medication Code System Code Instructions Start Date End Date Status Dosage Ventolin HFA [facility] [address]-33 108 (90 Base) MCG/ACT Inhalation every 4 hrs 2-4 puffs as needed Results No Known Results Summary Purpose eClinicalWorks Submission
--- OUTSIDE RECORDS SUMMARY | 2017-04-19 12:13 | XMS REPORT ---
Author Author JOSE F VALLEJO Organization [facility] Address [address] [place] [address] Care Team Providers Care Traffic Control Specialist Name Role Phone JOSE F VALLEJO Unavailable PROBLEMS Type Condition ICD9-CM Code [id number] Code Onset Dates Condition Status SNOMED Code Problem Chronic obstructive pulmonary disease, unspecified J44.9 Active 22486396 Problem Psoriasis L40.9 Active 9975839 Problem Hyperlipidemia E78.5 Active 67072381 Problem Lactic acidosis E87.2 Active 68814988 Problem Renal cyst, right N28.1 Active 42194409 Problem Idiopathic pulmonary fibrosis J84.112 Active 628784679 Problem Tobacco use Z72.0 Active 829009952 Problem Essential hypertension I10 Active 90544288 Problem 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 Active 122127380 Problem Vision loss, left eye H54.62 Active 30320885 Problem Hematochezia K92.1 Active 020093427 Problem Type 2 diabetes mellitus without complication E11.9 Active 18271700 ALLERGIES Substance Reaction Event Type Date Status Naprosyn Unknown Drug Allergy Jul, Active Celebrex Unknown Drug Allergy Jul, Active SOCIAL HISTORY No smoking Hx information available PLAN OF CARE Activity Details Follow Up After hospitalization Reason: VITAL SIGNS Height 67 in 2016-08-03 Weight 213.1 lbs 2016-08-03 Temperature 98.6 degrees Fahrenheit 2016-08-03 Heart Rate 117 bpm 2016-08-03 Respiratory Rate 22 2016-08-03 Oximetry ambulatin % 2016-08-03 BMI 33.37 kg/m2 2016-08-03 Blood pressure systolic 136 mmHg 2016-08-03 Blood pressure diastolic 67 mmHg 2016-08-03 MEDICATIONS Medication Instructions Dosage Frequency Start Date End Date Duration Status Ventolin HFA 108 (90 Base) MCG/ACT Inhalation every 4 hrs 2-4 puffs as needed 4h Active Calcipotriene 0.005 % Externally Twice a day 1 application to affected area 12h 30 Sep, 2015 Active Clobetasol Propionate 0.05 % Externally Twice a day as needed for psoriasis 1 application to affected area 12 Dec, 2014 Active Metformin HCl 500 MG Orally Twice a day 1 tablet with meals 12h 18 Jul, 2015 90 days Active Piroxicam 20 mg Orally Once a day 1 capsule with food 24h 90 days Active Doxycycline Hyclate 100 MG Orally every 12 hrs 1 tablet 12h Jul, 10 Jul, 2016 07 days Active Advair Diskus 250-50 MCG/DOSE Inhalation Twice a day, approximately 12 hrs apart 1 puff Active Lipitor 40 mg Orally Once a day 1 tablet 24h 90 days Active Hydroxychloroquine Sulfate 200 mg Orally Once a day 2 tablet with food or milk 24h 90 days Active PredniSONE 50 mg Orally Once a day 1 tablet 24h Jul, Jul, 05 days Active Pulmicort Flexhaler 180 MCG/ACT Inhalation Twice a day 2 puff 12h Jul, Active Hydrocodone-Acetaminophen 5-325 MG Orally every 6 hrs 1 tablet as needed 6h 13 Jul, 2015 Active Lisinopril 20 mg Orally Once a day 1 tablet 24h 10 Aug, 2015 90 days Active RESULTS No Results PROCEDURES Procedure Date Ordered Related Diagnosis Body Site MEASURE BLOOD OXYGEN LEVEL Aug 03, 2016 No Charge Aug 03, 2016 IMMUNIZATIONS No Known Immunizations
--- OUTSIDE RECORDS SUMMARY | 2017-04-19 12:13 | XMS REPORT ---
Author Author RILEY SCHRADER Organization [facility] Address [address] [place] [address] Care Team Providers Care Banquet Supervisor Name Role Phone RILEY SCHRADER Unavailable PROBLEMS Type Condition ICD9-CM Code [id number] Code Onset Dates Condition Status SNOMED Code Problem Chronic obstructive pulmonary disease, unspecified J44.9 Active 63642888 Problem Psoriasis L40.9 Active 0763494 Problem Hyperlipidemia E78.5 Active 08051641 Problem Lactic acidosis E87.2 Active 21669269 Problem Renal cyst, right N28.1 Active 07090167 Problem Idiopathic pulmonary fibrosis J84.112 Active 857902123 Problem Tobacco use Z72.0 Active 930477874 Problem Essential hypertension I10 Active 37277448 Problem 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 Active 466226792 Problem Vision loss, left eye H54.62 Active 63237563 Problem Hematochezia K92.1 Active 826385559 Problem Type 2 diabetes mellitus without complication E11.9 Active 17921994 ALLERGIES Substance Reaction Event Type Date Status Naprosyn Unknown Drug Allergy Jul, Active Celebrex Unknown Drug Allergy Jul, Active SOCIAL HISTORY No smoking Hx information available PLAN OF CARE Activity Details Follow Up after appt with Dr Stokes Reason: VITAL SIGNS Height 67 in 2016-08-16 Weight 218.6 lbs 2016-08-16 Temperature 97.8 degrees Fahrenheit 2016-08-16 Heart Rate 106 bpm 2016-08-16 Respiratory Rate 24 2016-08-16 Oximetry 97 % 2016-08-16 BMI 34.23 kg/m2 2016-08-16 Blood pressure systolic 122 mmHg 2016-08-16 Blood pressure diastolic 84 mmHg 2016-08-16 MEDICATIONS Medication Instructions Dosage Frequency Start Date End Date Duration Status Pulmicort Flexhaler 180 MCG/ACT Inhalation Twice a day 2 puff 12h Jul, Active PredniSONE 10 mg Orally 5 tabs x3 days, 4 tabs x3 days, 3 tabs x3 days, 2 tabs x3days, 1 tab x3 days, 1/2 tab x3 days 1 tablet Jul, Active GlipiZIDE 10 MG Orally Once a day 1 tablet 24h Active Advair Diskus 250-50 MCG/DOSE Inhalation Twice a day, approximately 12 hrs apart 1 puff Active Hydroxychloroquine Sulfate 200 mg Orally Once a day 2 tablet with food or milk 24h 90 days Active Lipitor 40 mg Orally Once a day 1 tablet 24h 90 days Active Lisinopril 20 mg Orally Once a day 1 tablet 24h Aug, 90 days Active Piroxicam 20 mg Orally Once a day 1 capsule with food 24h 90 days Active RESULTS No Results PROCEDURES Procedure Date Ordered Related Diagnosis Body Site MEASURE BLOOD OXYGEN LEVEL Aug 16, 2016 Office Visit, Est Pt., Level 4 Aug 16, 2016 IMMUNIZATIONS No Known Immunizations
--- OUTSIDE RECORDS SUMMARY | 2017-04-19 12:13 | XMS REPORT ---
Author Author JOSE F VALLEJO eClinicalWorks Address Unknown Phone Unavailable Care Team Providers Care Braider Operator Name Role Phone JOSE F VALLEJO Unavailable Allergies, Adverse Reactions, Alerts Substance Reaction Event Type Naprosyn 500 Mg Tablet Info Not Available Non Drug Allergy Celebrex 200 Mg Capsule Info Not Available Non Drug Allergy Problems Problem Type Condition ICD-9 Code Onset Dates Condition Status Assessment Other psoriasis 696.1 Active Problem Dysthymic disorder 300.4 Active Assessment Rheumatoid arthritis 714.0 Active Assessment Cellulitis, axillary fold 682.3 Active Problem Other and unspecified hyperlipidemia 272.4 Active Problem Rheumatoid arthritis 714.0 Active Problem COPD (chronic obstructive pulmonary disease) 496 Active Problem Idiopathic pulmonary fibrosis 516.31 Active Problem Other psoriasis 696.1 Active Problem Blood in stool 578.1 Active Problem Diabetes mellitus without mention of complication, type II or unspecified type, not stated as uncontrolled 250.00 Active Medications Medication Code System Code Instructions Start Date End Date Status Dosage Tramadol HCl [facility] [address]-18 50 MG Orally every 6 hrs Mar 31, 2015 1 tablet as needed for severe pain Ventolin HFA [facility] [address]-45 108 (90 Base) MCG/ACT Inhalation every 4 hrs 2-4 puffs as needed Clobetasol Propionate [facility] [address]-55 0.05 % Externally Twice a day as needed for psoriasis January 09, 2015 1 application to affected area Piroxicam [facility] [address]-94 20 MG Orally Once a day 1 capsule with food Bactrim DS [facility] [address]-76 800-160 MG Orally 2 times a day Mar 31, 2015 Apr 10, 2015 1 tablet Hydroxychloroquine Sulfate [facility] [address]-14 200 MG Orally Once a day 2 tablet with food or milk Advair Diskus [facility] [address]-38 250-50 MCG/DOSE Inhalation Twice a day, approximately 12 hrs apart 1 puff Lipitor [facility] [address]-28 40 MG Orally Once a day 1 tablet Procedures Procedure Coding System Code Date Office Visit, Est Pt., Level 3 CPT-4 98730 Mar 31, 2015 Vital Signs Date/Time: Mar 31, 2015 Temperature 98.8 F Weight 213.9 lbs Height 67 in BMI 33.50 Index Blood Pressure Diastolic 82 mmHg Blood Pressure Systolic 130 mmHg Cardiac Monitoring Heart Rate 84 bpm Results No Known Results Summary Purpose eClinicalWorks Submission
--- OUTSIDE RECORDS SUMMARY | 2017-04-19 12:13 | XMS REPORT ---
Author Author JOSE F VALLEJO [facility] eClinicalWorks Address Unknown Phone Unavailable Care Team Providers Care Roving Department Supervisor Name Role Phone JOSE F VALLEJO Unavailable [...] Date End Date Status Dosage Metformin HCl [facility] [place] [address]-74 500 MG Orally Twice a day Aug 17, 2015 1 tablet with meals Results No Known Results Summary Purpose eClinicalWorks Submission
--- OUTSIDE RECORDS SUMMARY | 2017-04-19 12:13 | XMS REPORT ---
Author Author JOSE F VALLEJO [facility] eClinicalWorks Address Unknown Phone Unavailable Care Team Providers Care Mental Health Social Worker Name Role Phone JOSE F VALLEJO Unavailable Allergies No Known Allergies Problems Problem Type Condition Code Onset Dates Condition Status Problem Dysthymic disorder 300.4 Active Problem Other and unspecified hyperlipidemia 272.4 [...] Instructions Start Date End Date Status Dosage Clobetasol Propionate [facility] [address]-67 0.05 % Externally Twice a day as needed for psoriasis January 09, 2015 1 application to affected area Results No Known Results Summary Purpose eClinicalWorks Submission
--- OUTSIDE RECORDS SUMMARY | 2017-04-19 12:13 | XMS REPORT ---
Author Author JOSE F VALLEJO [facility] Address [address] [place] [address] Care Team Providers Care Vehicle Service Attendant Name Role Phone JOSE F VALLJEO Unavailable PROBLEMS Type Condition ICD9-CM Code GCP43-DE Code Onset Dates Condition Status SNOMED Code Problem Chronic obstructive pulmonary disease, unspecified J44.9 Active 27614790 Problem Psoriasis L40.9 Active 7400658 Problem Hyperlipidemia E78.5 Active 47438704 Problem Lactic acidosis E87.2 Active 79473958 Problem Renal cyst, right N28.1 Active 22512332 Problem Idiopathic pulmonary fibrosis J84.112 Active 805493152 Problem Tobacco use Z72.0 Active 197476726 Problem Essential hypertension I10 Active 11776162 Problem 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 Active 697197384 Problem Vision loss, left eye H54.62 Active 16687925 Problem Hematochezia K92.1 Active 592342728 Problem Type 2 diabetes mellitus without complication E11.9 Active 27137764 ALLERGIES Unknown Allergies SOCIAL HISTORY No smoking Hx information available PLAN OF CARE VITAL SIGNS MEDICATIONS Medication Instructions Dosage Frequency Start Date End Date Duration Status Hydroxychloroquine Sulfate 200 mg Orally Once a day 2 tablet with food or milk 24h 90 days Active Piroxicam 20 mg Orally Once a day 1 capsule with food 24h 90 days Active PredniSONE 10 mg Orally 5 tabs x3 days, 4 tabs x3 days, 3 tabs x3 days, 2 tabs x3days, 1 tab x3 days, 1/2 tab x3 days 1 tablet Jul, Active Lisinopril 20 mg Orally Once a day 1 tablet 24h Aug, 90 days Active GlipiZIDE 10 MG Orally Once a day 1 tablet 24h Active Lipitor 40 mg Orally Once a day 1 tablet 24h 90 days Active Ventolin HFA 108 (90 Base) MCG/ACT Inhalation every 4 hrs 2-4 puffs as needed 4h Active Advair Diskus 250-50 MCG/DOSE Inhalation Twice a day, approximately 12 hrs apart 1 puff Active Pulmicort Flexhaler 180 MCG/ACT Inhalation Twice a day 2 puff 12h Jul, Active RESULTS No Results PROCEDURES No Known procedures IMMUNIZATIONS No Known Immunizations
--- OUTSIDE RECORDS SUMMARY | 2017-04-19 12:14 | XMS REPORT ---
Author Author JOSE F VALLEJO Organization [facility] Address [address] [place] [address] Care Team Providers Care Senior Geologist Name Role Phone JOSE F VALLEJO Unavailable PROBLEMS Type Condition ICD9-CM Code [id number] Code Onset Dates Condition Status SNOMED Code Problem Chronic obstructive pulmonary disease, unspecified J44.9 Active 41781125 Problem Psoriasis L40.9 Active 3760748 Problem Hyperlipidemia E78.5 Active 47564783 Problem Lactic acidosis E87.2 Active 36935370 Problem Renal cyst, right N28.1 Active 05009519 Problem Idiopathic pulmonary fibrosis J84.112 Active 885909602 Problem Tobacco use Z72.0 Active 845133768 Problem Essential hypertension I10 Active 99124747 Problem 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 Active 535450775 Problem Vision loss, left eye H54.62 Active 74747079 Problem Hematochezia K92.1 Active 676825490 Problem Type 2 diabetes mellitus without complication E11.9 Active 78542599 ALLERGIES Substance Reaction Event Type Date Status Naprosyn Unknown Drug Allergy Jul, Active Celebrex Unknown Drug Allergy Jul, Active SOCIAL HISTORY No smoking Hx information available PLAN OF CARE Activity Details Follow Up 1 day Reason:Breathing f/u VITAL SIGNS Height 67 in 2016-08-02 Weight 214.0 lbs 2016-08-02 Temperature 98.0 degrees Fahrenheit 2016-08-02 Heart Rate 104 bpm 2016-08-02 Respiratory Rate 24 2016-08-02 Oximetry ambulating w/o oxygen:90 % 2016-08-02 BMI 33.51 kg/m2 2016-08-02 Blood pressure systolic 140 mmHg 2016-08-02 Blood pressure diastolic 78 mmHg 2016-08-02 MEDICATIONS Medication Instructions Dosage Frequency Start Date End Date Duration Status Pulmicort Flexhaler 180 MCG/ACT Inhalation Twice a day 2 puff 12h Jul, Active Hydrocodone-Acetaminophen 5-325 MG Orally every 6 hrs 1 tablet as needed 6h 13 Jul, 2015 Active Piroxicam 20 mg Orally Once a day 1 capsule with food 24h 90 days Active Calcipotriene 0.005 % Externally Twice a day 1 application to affected area 12h 30 Sep, 2015 Active Metformin HCl 500 MG Orally Twice a day 1 tablet with meals 12h 18 Jul, 2015 90 days Active Hydroxychloroquine Sulfate 200 mg Orally Once a day 2 tablet with food or milk 24h 90 days Active Clobetasol Propionate 0.05 % Externally Twice a day as needed for psoriasis 1 application to affected area 12 Dec, 2014 Active PredniSONE 50 mg Orally Once a day 1 tablet 24h Jul, 8 Jul, 2016 05 days Active Doxycycline Hyclate 100 MG Orally every 12 hrs 1 tablet 12h Jul, 10 Jul, 2016 07 days Active Advair Diskus 250-50 MCG/DOSE Inhalation Twice a day, approximately 12 hrs apart 1 puff Active Lisinopril 20 mg Orally Once a day 1 tablet 24h 10 Aug, 2015 90 days Active Lipitor 40 mg Orally Once a day 1 tablet 24h 90 days Active Ventolin HFA 108 (90 Base) MCG/ACT Inhalation every 4 hrs 2-4 puffs as needed 4h Active RESULTS Name Result Date Reference Range Xray : Chest (IN HOUSE) 2016-08-02 PROCEDURES Procedure Date Ordered Related Diagnosis Body Site MEASURE BLOOD OXYGEN LEVEL Aug 02, 2016 CHEST X-RAY Aug 02, 2016 Office Visit, Est Pt., Level 3 Aug 02, 2016 IMMUNIZATIONS No Known Immunizations
--- OUTSIDE RECORDS SUMMARY | 2017-04-19 12:14 | XMS REPORT ---
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 Active Problem Hyperlipidemia E78.5 Active Problem Hematochezia K92.1 Active Problem 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 Active Problem Idiopathic pulmonary fibrosis J84.112 Active Problem Psoriasis L40.9 Active Problem Type 2 diabetes mellitus without complication E11.9 Active Problem Chronic obstructive pulmonary disease, unspecified J44.9 Active Medications Medication Code System Code Instructions Start Date End Date Status Dosage Hydrocodone-Acetaminophen [facility] [address]-24 5-325 MG Orally every 6 hrs Aug 12, 2015 1 tablet as needed Advair Diskus [facility] [address]-88 250-50 MCG/DOSE Inhalation Twice a day, approximately 12 hrs apart 1 puff Hydroxychloroquine Sulfate [facility] [address]-18 200 MG Orally Once a day 2 tablet with food or milk Ventolin HFA [facility] [address]-92 108 (90 Base) MCG/ACT Inhalation every 4 hrs 2-4 [place] [address]-06 40 MG Orally Once a day 1 tablet Clobetasol Propionate [facility] [address]-75 0.05 % Externally Twice a day as needed for psoriasis January 09, 2015 1 application to affected area Piroxicam [facility] [address]-88 20 MG Orally Once a day 1 capsule with food Procedures Procedure Coding System Code Date MICROALBUMIN, SEMIQUANT CPT-4 99304 Aug 12, 2015 Office Visit, Est Pt., Level 3 CPT-4 88165 Aug 12, 2015 GLYCATED HEMOGLOBIN TEST CPT-4 40118 Aug 12, 2015 Vital Signs Date/Time: Aug 12, 2015 Temperature 98.5 F Weight 220.0 lbs Height 67 in BMI 34.45 Index Blood Pressure Diastolic 82 mmHg Blood Pressure Systolic 132 mmHg Cardiac Monitoring Heart Rate 90 bpm Results Name Result Date Reference Range Unit Abnormality Flag MICROALBUMIN, URINE (IN HOUSE) ----A:C (IN HOUSE) <30mg/g [id number] ----CRE 200mg/dl [id number] ----ALB 30mg/l [id number] ----Color yellow [id number] ----MICROALBUMIN normal [id number] ----Lot # [id number] ----Exp date [id number] ----Clarity clear [id number] Summary Purpose eClinicalWorks Submission
--- OUTSIDE RECORDS SUMMARY | 2017-04-19 12:14 | XMS REPORT ---
Author Author JOSE F VALLEJO [facility] e[employer] Address Unknown Phone Unavailable Care Team Providers Care Airline Ticket Agent Name Role Phone JOSE F VALLEJO Unavailable Allergies No Known Allergies Problems Problem Type Condition ICD-9 Code Onset Dates Condition Status Problem Dysthymic [...] Instructions Start Date End Date Status Dosage Advair Diskus [facility] [address]-16 250-50 MCG/DOSE Inhalation Twice a day, approximately 12 hrs apart 1 puff Results No Known Results Summary Purpose eClinicalWorks Submission
--- OUTSIDE RECORDS SUMMARY | 2017-04-19 12:14 | XMS REPORT ---
Author Author JOSE F VALLEJO [facility] [employer] Address Unknown Phone Unavailable Care Team Providers Care Inspection Manager Name Role Phone JOSE F VALLEJO Unavailable [...] not stated as uncontrolled 250.00 Active Medications No Known Medications Results No Known Results Summary Purpose eClinicalWorks Submission
--- OUTSIDE RECORDS SUMMARY | 2017-04-19 12:14 | XMS REPORT ---
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
--- OUTSIDE RECORDS SUMMARY | 2017-04-19 12:14 | XMS REPORT ---
Author Author JOSE F VALLEJO Organization [facility] Address [address] [place] [address] Care Team Providers Care Service Assistant Name Role Phone JOSE F VALLEJO Unavailable PROBLEMS Type Condition ICD9-CM Code WRO70-CR Code Onset Dates Condition Status SNOMED Code Problem Chronic obstructive pulmonary disease, unspecified J44.9 Active 58552886 Problem Psoriasis L40.9 Active 7948953 Problem Hyperlipidemia E78.5 Active 49573770 Problem Lactic acidosis E87.2 Active 38660307 Problem Renal cyst, right N28.1 Active 42666035 Problem Idiopathic pulmonary fibrosis J84.112 Active 401026939 Problem Tobacco use Z72.0 Active 231380183 Problem Essential hypertension I10 Active 46439019 Problem 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 Active 314033630 Problem Vision loss, left eye H54.62 Active 60194528 Problem Hematochezia K92.1 Active 202651834 Problem Type 2 diabetes mellitus without complication E11.9 Active 19082262 ALLERGIES Unknown Allergies SOCIAL HISTORY No smoking Hx information available PLAN OF CARE VITAL SIGNS MEDICATIONS Medication Instructions Dosage Frequency Start Date End Date Duration Status Advair Diskus 250-50 MCG/DOSE Inhalation Twice a day, approximately 12 hrs apart 1 puff Active Ventolin HFA 108 (90 Base) MCG/ACT Inhalation every 4 hrs 2-4 puffs as needed 4h Active RESULTS No Results PROCEDURES No Known procedures IMMUNIZATIONS No Known Immunizations
[2017-04-19] MEDS ORDERED: ASPIRIN 81 MG CHEW (CHILDREN'S ASA) PO ONE (12:15)
--- NOTE | 2017-04-19 12:23 | ED Respiratory ---
General Stated Complaint: SOA/COUGH CHEST PAIN Source: patient Exam Limitations: no limitations History of Present Illness Time seen by provider: 12:23 Initial Comments To ER with reports of shortness of breath for the past 5 days roughly. No fevers or chills. He does have a productive cough which is unusual for him. He does have wheezing that he is noticed. He smokes one pack per day and has done so for greater than 40 years. He does have some chest pain but states this is worsened by deep breathing. Chest pain just started this morning. Timing/Duration: week Severity: moderate Associated Symptoms: cough, shortness of breath, wheezing Allergies and Home Medications Allergies Coded Allergies: No Known Drug Allergies (Unverified , 09/10/10) Home Medications Albuterol Sulfate 18 Gm Hfa.aer.ad, 2-4 PUFF IH Q4H PRN for SHORTNESS OF BREATH, (Reported) Atorvastatin Calcium 40 Mg Tablet, 40 MG PO DAILY, (Reported) Azithromycin 250 Mg Tablet, 250 MG PO UD, #6 TAKE 2 TABLETS ON DAY ONE THEN TAKE 1 TABLET DAILY FOR FOUR MORE DAYS Prescribed by: JOHANNE DE LOS SANTOS on 04/19/17 1318 Budesonide 90 Mcg Aer.pow.ba, 2 PUFF IH BID, (Reported) Doxycycline Hyclate 100 Mg Tablet, 100 MG PO Q12H, (Reported) FILLED 08/02/15 #14 FOR A 7 DAY THERAPY Fluticasone/Salmeterol 250 Mcg/50 Mcg Inh, 1 PUFF IH BID, (Reported) Glipizide 10 Mg Tablet, 10 MG PO DAILY, #30 Prescribed by: FÁTIMA BRADY on 08/05/16 1242 Hydroxychloroquine Sulfate 200 Mg Tab, 400 MG PO DAILY, (Reported) TAKES 2 (200 MG) TABLETS Lisinopril 20 Mg Tablet, 20 MG PO DAILY, (Reported) Piroxicam 20 Mg Capsule, 20 MG PO DAILY, (Reported) Prednisone 10 Mg Tab, 10 MG PO DAILY, #47 Take 5 x 3 Day, 4tabx 3 Day, 3tabs x 3day, 2tabs x 3day, 1tab x 3day and 1/ 2tab x 4 days. Prescribed by: FÁTIMA BRADY on 08/05/16 1238 Prednisone 20 Mg Tab, 40 MG PO DAILY, #8 Prescribed by: JOHANNE DE LOS SANTOS on 04/19/17 1318 Constitutional: see HPI EENTM: see HPI Respiratory: see HPI, cough, short of breath, wheezing Genitourinary: no symptoms reported Musculoskeletal: no symptoms reported Skin: no symptoms reported Psychiatric/Neurological: No Symptoms Reported Hematologic/Lymphatic: No Symptoms Reported Immunological/Allergic: no symptoms reported Past Jrexdhg-Aqvamb-Mbliuw Hx Patient Social History Type Used: Cigars Immunizations Up To Date Date of Pneumonia Vaccine: Jun 01, 2013 Date of Influenza Vaccine: May 31, 2014 Seasonal Allergies Seasonal Allergies: No Surgeries History of Surgeries: No Respiratory History of Respiratory Disorde: Yes (COPD) Respiratory Disorders: COPD Currently Using CPAP: No Currently Using BIPAP: No Cardiovascular History of Cardiac Disorders: No Neurological History of Neurological Disord: No Reproductive System Hx Reproductive Disorders: No Genitourinary History of Genitourinary Disor: No Gastrointestinal History of Gastrointestinal Di: No Musculoskeletal History of Musculoskeletal Dis: Yes Musculoskeletal Disorders: Rheumatoid Arthritis Endocrine History of Endocrine Disorders: Yes Endocrine Disorders: Diabetes, Non-Insulin dep HEENT History of HEENT Disorders: No Loss of Vision: Left Cancer History of Cancer: No Psychosocial History of Psychiatric Problem: No Integumentary History of Skin or Integumenta: Yes Skin/Integumentary Disorders: Psoriasis Blood Transfusions History of Blood Disorders: No Adverse Reaction to a Blood Tr: No Family Medical History Family Medial History: Cancer G8 SISTER Family history: Diabetes mellitus G8 SISTER Physical Exam Vital Signs Vital Sign - Last 12Hours 04/19/17 12:10 Temp 98.8 Pulse 108 Resp 18 B/P (MAP) 107/78 Pulse Ox 95 O2 Delivery Room Air Capillary Refill : General Appearance: WD/WN, no apparent distress Eyes: Bilateral Eye Normal Inspection, Bilateral Eye PERRL, Bilateral Eye EOMI HEENT: PERRL/EOMI, normal ENT inspection Neck: non-tender, full range of motion Respiratory: decreased breath sounds, crackles, wheezing Cardiovascular: regular rate, rhythm, no murmur Gastrointestinal: normal bowel sounds, non tender, soft Neurologic/Psychiatric: alert, normal mood/affect, oriented x 3 Skin: normal color, warm/dry Progress/Results/Core Measures Results/Orders Lab Results Laboratory Tests Test 04/19/17 12:23 Range/Units White Blood Count 16.1 H 4.3-11.0 10^3/uL Red Blood Count 4.56 4.35-5.85 10^6/uL Hemoglobin 14.0 13.3-17.7 G/DL Hematocrit 42 40-54 % Mean Corpuscular Volume 92 80-99 FL Mean Corpuscular Hemoglobin 31 25-34 PG Mean Corpuscular Hemoglobin Concent 33 32-36 G/DL Red Cell Distribution Width 13.9 10.0-14.5 % Platelet Count 284 130-400 10^3/uL Mean Platelet Volume 10.5 H 7.4-10.4 FL Neutrophils (%) (Auto) 75 42-75 % Lymphocytes (%) (Auto) 11 L 12-44 % Monocytes (%) (Auto) 12 0-12 % Eosinophils (%) (Auto) 1 0-10 % Basophils (%) (Auto) 0 0-10 % Neutrophils # (Auto) 12.1 H 1.8-7.8 X 10^3 Lymphocytes # (Auto) 1.8 1.0-4.0 X 10^3 Monocytes # (Auto) 2.0 H 0.0-1.0 X 10^3 Eosinophils # (Auto) 0.2 0.0-0.3 10^3/uL Basophils # (Auto) 0.1 0.0-0.1 10^3/uL Neutrophils % (Manual) 77 % Lymphocytes % (Manual) 10 % Monocytes % (Manual) 7 % Eosinophils % (Manual) 2 % Basophils % (Manual) 2 % Reactive Lymphocytes 2 % Blood Morphology Comment NORMAL Prothrombin Time 13.7 12.2-14.7 SEC INR Comment 1.0 0.8-1.4 Activated Partial Thromboplast Time 30 24-35 SEC Sodium Level 132 L 135-145 MMOL/L Potassium Level 3.7 3.6-5.0 MMOL/L Chloride Level 102 98-107 MMOL/L Carbon Dioxide Level 23 21-32 MMOL/L Anion Gap 7 5-14 MMOL/L Blood Urea Nitrogen 18 7-18 MG/DL Creatinine 0.87 0.60-1.30 MG/DL Estimat Glomerular Filtration Rate > 60 BUN/Creatinine Ratio 21 Glucose Level 212 H 70-105 MG/DL Calcium Level 8.9 8.5-10.1 MG/DL Magnesium Level 1.5 L 1.8-2.4 MG/DL Total Bilirubin 1.1 H 0.1-1.0 MG/DL Aspartate Amino Transf (AST/SGOT) 11 5-34 U/L Alanine Aminotransferase (ALT/SGPT) 33 0-55 U/L Alkaline Phosphatase 84 40-136 U/L Myoglobin 49.6 10.0-92.0 NG/ML Troponin I < 0.30 <0.30 NG/ML B-Type Natriuretic Peptide 40.3 <100.0 PG/ML Total Protein 7.5 6.4-8.2 GM/DL Albumin 3.7 3.2-4.5 GM/DL My Orders Orders - JOHANNE DE LOS SANTOS SHAKE BACKBOARD NOTCHER Cbc With Automated Diff (04/19/17 12:15) Magnesium (04/19/17 12:15) Cardiac Profile 1 (04/19/17 12:15) Comprehensive Metabolic Panel (04/19/17 12:15) Myoglobin Serum (04/19/17 12:15) Protime With Inr (04/19/17 12:15) Partial Thromboplastin Time (04/19/17 12:15) O2 (04/19/17 12:15) Monitor-Rhythm Ecg Trace Only (04/19/17 12:15) Lipid Panel (04/20/17 06:00) Aspirin Chewable Tablet (Baby Aspirin Ch (04/19/17 12:15) Saline Lock/Iv-Start (04/19/17 12:15) BNP (04/19/17 12:15) Methylprednisolone Sod Succ (Solu-Medrol (04/19/17 12:30) Albuterol/Ipra Inhalation Soln (Duoneb I (04/19/17 12:30) Svn Sm Volume Nebulizer Rt-Rfs (04/19/17 12:18) Manual Differential (04/19/17 12:23) Albuterol/Ipra Inhalation Soln (Duoneb I (04/19/17 13:30) Svn Sm Volume Nebulizer Rt-Rfs (04/19/17 13:25) Albuterol Pre-Mix Nebs (Rt) (Proventil P (04/19/17 13:30) Medications Given in ED Current Medications Medications Dose Ordered Sig/Sara Route Start Time Stop Time Status Last Admin Dose Admin Albuterol/ Ipratropium 3 ml ONCE ONCE INH 04/19/17 12:30 04/19/17 12:31 DC 04/19/17 12:24 3 ML Aspirin 324 mg ONCE ONCE PO 04/19/17 12:15 04/19/17 12:17 DC 04/19/17 12:43 324 MG Methylprednisolone Sodium Succinate 125 mg ONCE ONCE IVP 04/19/17 12:30 04/19/17 12:31 DC 04/19/17 12:43 125 MG Vital Signs/I&O Vital Sign - Last 12Hours 04/19/17 04/19/17 12:10 12:27 Temp 98.8 Pulse 108 Resp 18 B/P (MAP) 107/78 Pulse Ox 95 92 O2 Delivery Room Air Room Air Diagnostic Imaging Diagonstic Imaging: Xray Comments NAME: EMERALD SHAH MED REC#: [id number] PT STATUS: REG ER : 1955 PHYSICIAN: CHAPIN ROSE MD ADMIT DATE: 04/19/17/ER Draft Date of Exam:04/19/17 CHEST PA/LAT (2 VIEW) INDICATION: Difficulty breathing, chest pain. EXAMINATION: PA and lateral chest. FINDINGS: The heart size and pulmonary vascularity are within normal limits. There is interstitial fibrosis in the lungs which was present on the prior CT from 08/03/2016. There are no consolidating alveolar infiltrates. There are no effusions or pneumothoraces. IMPRESSION: Interstitial fibrosis. Dictated on workstation # [id number] Dict: 04/19/17 1301 Trans: 04/19/17 1304 [id number] Interpreted by: LEONEL ESCOBEDO MD Electronically signed by: Departure Impression Impression: Primary Impression: COPD exacerbation Disposition: 01 HOME, SELF-CARE Condition: Stable Departure-Patient Inst. Decision time for Depature: 13:16 Referrals: JOSE F VALLEJO MD (PCP/Family) Primary Care Physician Patient Instructions: Chronic Obstructive Pulmonary Disease (COPD), Including Emphysema Add. Discharge Instructions: 1. Return to ER for any concerns 2. Take steroids and antibiotics as directed 3. See your doctor later this week Scripts Albuterol Sulfate (Albuterol Sulfate) 2.5 Mg/3 Ml Vial.neb 2.5 MG IH Q4H Y for WHEEZING, #25 EA Prov: JOHANNE DE LOS SANTOS SHAKE BACKBOARD NOTCHER 04/19/17 Azithromycin (Azithromycin) 250 Mg Tablet 250 MG PO UD, #6 TAB TAKE 2 TABLETS ON DAY ONE THEN TAKE 1 TABLET DAILY FOR FOUR MORE DAYS Prov: JOHANNE DE LOS SANTOS APRN 04/19/17 Prednisone (Prednisone) 20 Mg Tab 40 MG PO DAILY, #8 TAB Prov: JOHANNE DE LOS SANTOS APRN 04/19/17 JOHANNE DE LOS SANTOS APRN Apr 19, 2017 12:23
[2017-04-19] MEDS ORDERED: RT-ALBUTEROL/IPRATROPIUM 3 ML (DUONEB) VIAL INH ONE ×2 (12:30→13:30)
[2017-04-19] MEDS ORDERED: methylPREDNISolone 125 MG (Solu-MEDROL) VIAL IVP ONE (12:30)
[2017-04-19 12:37] LABS: BASOPHILS # (AUTO) 0.1 10^3/uL (0.0-0.1); BASOPHILS % (AUTO) 0 % (0-10); EOSINOPHILS # (AUTO) 0.2 10^3/uL (0.0-0.3); EOSINOPHILS % (AUTO) 1 % (0-10); LYMPHOCYTES # (AUTO) 1.8 X 10^3 (1.0-4.0); LYMPHOCYTES % (AUTO) 11 % (12-44); MEAN CORPUSCULAR HEMOGLOBIN 31 PG (25-34); MEAN CORPUSCULAR HGB CONC 33 G/DL (32-36); MEAN CORPUSCULAR VOLUME 92 FL (80-99); MEAN PLATELET VOLUME 10.5 FL (7.4-10.4); MONOCYTES % (AUTO) 12 % (0-12); NEUTROPHILS # (AUTO) 12.1 X 10^3 (1.8-7.8); NEUTROPHILS % (AUTO) 75 % (42-75); PLATELET COUNT 284 10^3/uL (130-400); RED BLOOD COUNT 4.56 10^6/uL (4.35-5.85); RED CELL DISTRIBUTION WIDTH 13.9 % (10.0-14.5); WHITE BLOOD COUNT 16.1 10^3/uL (4.3-11.0)
[2017-04-19 12:47] LABS: PROTHROMBIN TIME PATIENT 13.7 SEC (12.2-14.7)
[2017-04-19 12:58] LABS: ALANINE AMINOTRANSFERASE 33 U/L (0-55); ALBUMIN 3.7 GM/DL (3.2-4.5); ANION GAP 7 MMOL/L (5-14); ASPARTATE AMINO TRANSFERASE 11 U/L (5-34); BILIRUBIN,TOTAL 1.1 MG/DL (0.1-1.0); BLOOD UREA NITROGEN 18 MG/DL (7-18); BUN/CREATININE RATIO 21; CALCIUM 8.9 MG/DL (8.5-10.1); CARBON DIOXIDE 23 MMOL/L (21-32); CHLORIDE 102 MMOL/L (98-107); CREATININE SERUM 0.87 MG/DL (0.60-1.30); GFR ESTIMATED > 60; GLUCOSE 212 MG/DL (70-105); MAGNESIUM 1.5 MG/DL (1.8-2.4); POTASSIUM 3.7 MMOL/L (3.6-5.0); SODIUM 132 MMOL/L (135-145); TOTAL PROTEIN 7.5 GM/DL (6.4-8.2)
--- NOTE | 2017-04-19 13:04 | Diagnostic Imaging Report ---
INDICATION: Difficulty breathing, chest pain. EXAMINATION: PA and lateral chest. FINDINGS: The heart size and pulmonary vascularity are within normal limits. There is interstitial fibrosis in the lungs which was present on the prior CT from 08/03/2016. There are no consolidating alveolar infiltrates. There are no effusions or pneumothoraces. IMPRESSION: Interstitial fibrosis. Dictated by: Dictated on workstation # [id number]
[2017-04-19 13:05] LABS: MYOGLOBIN SERUM 49.6 NG/ML (10.0-92.0)
[2017-04-19] MEDS ORDERED: PRD20T PO (13:18)
[2017-04-19] MEDS ORDERED: AZIT250T12 PO (13:18)
[2017-04-19 13:25] LABS: BASOPHILS % (MANUAL) 2 %; EOSINOPHILS % (MANUAL) 2 %; LYMPHOCYTES % (MANUAL) 10 %; NEUTROPHILS % (MANUAL) 77 %; REACTIVE LYMPHOCYTES 2 %
[2017-04-19] MEDS ORDERED: ALBU2.5V4 IH (13:28)
[2017-04-19] MEDS ORDERED: RT-ALBUTEROL SULF 2.5 MG/3 ML PRE-MIX VIAL IH SCH (13:30)
[2017-04-19 13:58] VITALS: BP 117/71
== END 2017-04-19 13:58 | disposition home or self-care (01) ==
LOC: EDUNIT# 12:06 → ER 12:08
DX: J44.1 Chronic obstructive pulmonary disease with (acute) exacerbation; E11.9 Type 2 diabetes mellitus without complications; M06.9 Rheumatoid arthritis, unspecified; Z87.2 Personal history of diseases of the skin and subcutaneous tissue; Z80.9 Family history of malignant neoplasm, unspecified
CPT/HCPCS: 36415; 71020; 80053; 83735; 83874; 83880; 84484; 85007; 85027; 85610; 85730; 93005; 93041; 94640; 96374

== ENCOUNTER 2017-05-02 13:23 | Outpatient (RCR) | payer OTHER ==
[~2017-05-02 13:23] MED LIST changes: +ALBU2.5V4 IH; +AZIT250T12 PO
[2017-05-04] MEDS ORDERED: ACHD5005 PO (09:53)
[2017-05-04] MEDS ORDERED: ALBU2.5V4 NEB (15:07)
[2017-05-04] MEDS ORDERED: FLUT1DIS26 IH (15:42)
[2017-05-04] MEDS ORDERED: GLIP5TAB13 PO (15:42)
[2017-05-04] MEDS ORDERED: METH2.5T PO (15:58)
[2017-05-04] MEDS ORDERED: FOLI1TAB24 PO (15:58)
[2017-05-04] MEDS ORDERED: HYDR200T46 PO (15:58)
[2017-05-06] MEDS ORDERED: DOXY100T19 PO (09:46)
[2017-05-06] MEDS ORDERED: PRD20T PO (09:46)
== END 2017-07-31 | disposition home or self-care (01) ==
LOC: PULM 13:23
PROVIDERS: ATTEND Internal Medicine Critical Care Medicine
DX: J44.9 Chronic obstructive pulmonary disease, unspecified (principal); J84.10 Pulmonary fibrosis, unspecified

== ENCOUNTER 2017-05-04 09:28 | Inpatient (IN) | payer OTHER ==
[~2017-05-04] VITALS: Ht 170.2 cm; Wt 99.8 kg
[~2017-05-04 09:28] MED LIST changes: -AZIT250T12 PO; +AZIT250T5 PO
[2017-05-04] MEDS ORDERED: HYDR-3812 PO (09:53)
[2017-05-04] MEDS ORDERED: RT-ALBUTEROL/IPRATROPIUM 3 ML (DUONEB) VIAL INH ONE (10:00)
[2017-05-04] MEDS ORDERED: RT-IPRATROPIUM (ATROVENT) 0.5MG/2.5ML AMP IH ONE (10:16)
[2017-05-04] MEDS ORDERED: RT-ALBUTEROL SULF 2.5 MG/3 ML PRE-MIX VIAL ONE (10:16)
--- NOTE | 2017-05-04 10:19 | ED Respiratory ---
General Chief Complaint: Respiratory Problems Stated Complaint: COPD Nursing Triage Note: PT CO OF COPD SYMPTOMS, SOB Source: patient Exam Limitations: no limitations History of Present Illness Time seen by provider: 10:15 Initial Comments The patient's a 61-year-old white male who presents with complaints of COPD and shortness of breath. He continues to smoke 2 packs are slightly more daily. He was admitted in early July 2016 for exacerbation of COPD. He apparently did the respiratory clinic in January and more recently saw Dr. Stokes on 05/02. He is awaiting insurance certification for repeat pulmonary clinic Activities. He reports that he has been continually short of breath and especially with the walking over the past week. He is not aware of fever. He denies significant sputum production. Timing/Duration: week, getting worse Prior Episodes/Possible Cause: occasional episodes Modifying Factors: Improves With Albuterol Inhaler Associated Symptoms: chest pain/soreness (right lower anterior rib margin) Allergies and Home Medications Allergies Coded Allergies: No Known Drug Allergies (Unverified , 09/10/10) Home Medications Albuterol Sulfate 18 Gm Hfa.aer.ad, 2-4 PUFF IH Q4H PRN for SHORTNESS OF BREATH, (Reported) Atorvastatin Calcium 40 Mg Tablet, 40 MG PO DAILY, (Reported) Fluticasone/Salmeterol 250 Mcg/50 Mcg Inh, 1 PUFF IH BID, (Reported) Glipizide 10 Mg Tablet, 10 MG PO DAILY, #30 Prescribed by: FÁTIMA BRADY on 08/05/16 1242 Hydrocodone/Acetaminophen 1 Each Tablet, (Reported) Lisinopril 20 Mg Tablet, 20 MG PO DAILY, (Reported) Piroxicam 20 Mg Capsule, 20 MG PO DAILY, (Reported) Constitutional: see HPI EENTM: no symptoms reported Respiratory: see HPI, cough, dyspnea on exertion, short of breath, wheezing Cardiovascular: no symptoms reported Gastrointestinal: no symptoms reported Genitourinary: no symptoms reported Musculoskeletal: no symptoms reported Skin: no symptoms reported Psychiatric/Neurological: No Symptoms Reported Hematologic/Lymphatic: No Symptoms Reported Immunological/Allergic: no symptoms reported Past Yazmbav-Xkpojo-Iefaav Hx Patient Social History Alcohol Use: Denies Use Recreational Drug Use: No Smoking Status: Current Everyday Smoker Type Used: Cigars Recent Foreign Travel: No Contact w/Someone Who Travel: No Recent Infectious Disease Expo: No Recent Hopitalizations: No Physical Abuse: No Sexual Abuse: No Immunizations Up To Date Date of Pneumonia Vaccine: Jun 01, 2013 Date of Influenza Vaccine: May 31, 2014 Seasonal Allergies Seasonal Allergies: No Surgeries History of Surgeries: No Respiratory History of Respiratory Disorde: Yes Respiratory Disorders: COPD Currently Using CPAP: No Currently Using BIPAP: No Cardiovascular History of Cardiac Disorders: No Cardiac Disorders: Hypertension Neurological History of Neurological Disord: No Reproductive System Hx Reproductive Disorders: No Genitourinary History of Genitourinary Disor: No Gastrointestinal History of Gastrointestinal Di: No Musculoskeletal History of Musculoskeletal Dis: Yes Musculoskeletal Disorders: Rheumatoid Arthritis Endocrine History of Endocrine Disorders: Yes Endocrine Disorders: Diabetes, Non-Insulin dep HEENT History of HEENT Disorders: No Loss of Vision: Left Cancer History of Cancer: No Psychosocial History of Psychiatric Problem: No Suicide Risk Score: 0 Integumentary History of Skin or Integumenta: Yes Skin/Integumentary Disorders: Psoriasis Blood Transfusions History of Blood Disorders: No Adverse Reaction to a Blood Tr: No Family Medical History Family Medial History: Cancer G8 SISTER Family history: Diabetes mellitus G8 SISTER Physical Exam Vital Signs Vital Sign - Last 12Hours 05/04/17 09:30 Temp 98.1 Pulse 110 Resp 24 B/P (MAP) 119/76 Pulse Ox 97 O2 Delivery Nasal Cannula O2 Flow Rate 2.00 Capillary Refill : Less Than 3 Seconds General Appearance: mild distress, moderate distress Eyes: Bilateral Eye Normal Inspection HEENT: normal ENT inspection Neck: full range of motion Respiratory: crackles, rhonchi (diffuse) Cardiovascular: normal peripheral pulses, regular rate, rhythm, no edema, no gallop, no JVD, no murmur Gastrointestinal: normal bowel sounds, non tender, soft, no organomegaly, no pulsatile mass Extremities: normal range of motion Neurologic/Psychiatric: cell builder II-XII nml as tested, no motor/sensory deficits, alert, normal mood/affect, oriented x 3 Skin: normal color, warm/dry, cyanosis, cool, diaphoresis, damp Lymphatic: no adenopathy Progress/Results/Core Measures Results/Orders Lab Results Laboratory Tests Test 05/04/17 10:10 Range/Units White Blood Count 18.8 H 4.3-11.0 10^3/uL Red Blood Count 4.30 L 4.35-5.85 10^6/uL Hemoglobin 13.1 L 13.3-17.7 G/DL Hematocrit 40 40-54 % Mean Corpuscular Volume 92 80-99 FL Mean Corpuscular Hemoglobin 31 25-34 PG Mean Corpuscular Hemoglobin Concent 33 32-36 G/DL Red Cell Distribution Width 13.2 10.0-14.5 % Platelet Count 339 130-400 10^3/uL Mean Platelet Volume 10.3 7.4-10.4 FL Neutrophils (%) (Auto) 84 H 42-75 % Lymphocytes (%) (Auto) 7 L 12-44 % Monocytes (%) (Auto) 6 0-12 % Eosinophils (%) (Auto) 2 0-10 % Basophils (%) (Auto) 0 0-10 % Neutrophils # (Auto) 15.9 H 1.8-7.8 X 10^3 Lymphocytes # (Auto) 1.2 1.0-4.0 X 10^3 Monocytes # (Auto) 1.2 H 0.0-1.0 X 10^3 Eosinophils # (Auto) 0.5 H 0.0-0.3 10^3/uL Basophils # (Auto) 0.1 0.0-0.1 10^3/uL Neutrophils % (Manual) 83 % Lymphocytes % (Manual) 7 % Monocytes % (Manual) 6 % Eosinophils % (Manual) 2 % Basophils % (Manual) 0 % Band Neutrophils 2 % Blood Morphology Comment NORMAL Sodium Level 133 L 135-145 MMOL/L Potassium Level 4.2 3.6-5.0 MMOL/L Chloride Level 102 98-107 MMOL/L Carbon Dioxide Level 22 21-32 MMOL/L Anion Gap 9 5-14 MMOL/L Blood Urea Nitrogen 15 7-18 MG/DL Creatinine 0.89 0.60-1.30 MG/DL Estimat Glomerular Filtration Rate > 60 BUN/Creatinine Ratio 17 Glucose Level 262 H 70-105 MG/DL Calcium Level 9.0 8.5-10.1 MG/DL Total Bilirubin 0.8 0.1-1.0 MG/DL Aspartate Amino Transf (AST/SGOT) 12 5-34 U/L Alanine Aminotransferase (ALT/SGPT) 17 0-55 U/L Alkaline Phosphatase 83 40-136 U/L Total Protein 7.4 6.4-8.2 GM/DL Albumin 3.3 3.2-4.5 GM/DL My Orders Orders - MAURI DICKERSON MD Cbc With Automated Diff (05/04/17 09:56) Comprehensive Metabolic Panel (05/04/17 09:56) Chest 1 View, Ap/Pa Only (05/04/17 09:56) Albuterol/Ipra Inhalation Soln (Duoneb I (05/04/17 10:00) Svn Sm Volume Nebulizer Rt-Rfs (05/04/17 09:56) Ipratropium 0.02% Neb Solution (Atrovent (05/04/17 10:16) Albuterol Pre-Mix Nebs (Rt) (Proventil P (05/04/17 10:16) Manual Differential (05/04/17 10:10) Methylprednisolone Sod Succ (Solu-Medrol (05/04/17 11:45) Medications Given in ED Current Medications Medications Dose Ordered Sig/Sara Route Start Time Stop Time Status Last Admin Dose Admin Albuterol Sulfate 2.5 mg STK-MED ONCE .ROUTE 05/04/17 10:16 05/04/17 10:24 DC 05/04/17 10:28 15 MG Albuterol/ Ipratropium 3 ml ONCE ONCE INH 05/04/17 10:00 05/04/17 10:01 DC 05/04/17 10:17 3 ML Ipratropium Avinger 0.5 mg STK-MED ONCE IH 05/04/17 10:16 05/04/17 10:24 DC 05/04/17 10:29 0.5 MG Vital Signs/I&O Vital Sign - Last 12Hours 05/04/17 05/04/17 05/04/17 09:30 10:18 10:29 Temp 98.1 Pulse 110 Resp 24 B/P (MAP) 119/76 Pulse Ox 97 94 98 O2 Delivery Nasal Cannula Nasal Cannula O2 Flow Rate 2.00 2.00 Blood Pressure Mean: 90 Departure Communication (Admissions) Progress Notes The patient shows a rather minimal improvement when reexamined at 1135. When his O2 is removed his SaO2 falls into the mid 80s. Discussed with the Dr. Gaitan at 1140 in the patient will be admitted. Impression Impression: Primary Impression: COPD exacerbation Disposition: ADMITTED INPATIENT Condition: Stable/Unchanged Admissions Decision to Admit Reason: Admit from ER (General) Decision to Admit/Date: May 04, 2017 Time/Decision to Admit Time: 11:40 Transfer Time Spoke to Accepting Phy: 11:40 Departure-Patient Inst. Referrals: JOSE F VALLEJO MD (PCP/Family) Primary Care Physician MAURI DICKERSON MD May 04, 2017 10:19
[2017-05-04 10:25] LABS: BASOPHILS # (AUTO) 0.1 10^3/uL (0.0-0.1); BASOPHILS % (AUTO) 0 % (0-10); EOSINOPHILS # (AUTO) 0.5 10^3/uL (0.0-0.3); EOSINOPHILS % (AUTO) 2 % (0-10); LYMPHOCYTES # (AUTO) 1.2 X 10^3 (1.0-4.0); LYMPHOCYTES % (AUTO) 7 % (12-44); MEAN CORPUSCULAR HEMOGLOBIN 31 PG (25-34); MEAN CORPUSCULAR HGB CONC 33 G/DL (32-36); MEAN CORPUSCULAR VOLUME 92 FL (80-99); MEAN PLATELET VOLUME 10.3 FL (7.4-10.4); MONOCYTES # (AUTO) 1.2 X 10^3 (0.0-1.0); MONOCYTES % (AUTO) 6 % (0-12); NEUTROPHILS # (AUTO) 15.9 X 10^3 (1.8-7.8); NEUTROPHILS % (AUTO) 84 % (42-75); PLATELET COUNT 339 10^3/uL (130-400); RED CELL DISTRIBUTION WIDTH 13.2 % (10.0-14.5); WHITE BLOOD COUNT 18.8 10^3/uL (4.3-11.0)
[2017-05-04 10:41] LABS: ALANINE AMINOTRANSFERASE 17 U/L (0-55); ALBUMIN 3.3 GM/DL (3.2-4.5); ANION GAP 9 MMOL/L (5-14); ASPARTATE AMINO TRANSFERASE 12 U/L (5-34); BILIRUBIN,TOTAL 0.8 MG/DL (0.1-1.0); BLOOD UREA NITROGEN 15 MG/DL (7-18); BUN/CREATININE RATIO 17; CARBON DIOXIDE 22 MMOL/L (21-32); CHLORIDE 102 MMOL/L (98-107); CREATININE SERUM 0.89 MG/DL (0.60-1.30); GFR ESTIMATED > 60; GLUCOSE 262 MG/DL (70-105); POTASSIUM 4.2 MMOL/L (3.6-5.0); SODIUM 133 MMOL/L (135-145); TOTAL PROTEIN 7.4 GM/DL (6.4-8.2)
[2017-05-04 10:42] LABS: BAND NEUTROPHILS 2 %; BASOPHILS % (MANUAL) 0 %; EOSINOPHILS % (MANUAL) 2 %; LYMPHOCYTES % (MANUAL) 7 %; NEUTROPHILS % (MANUAL) 83 %
--- NOTE | 2017-05-04 10:54 | Diagnostic Imaging Report ---
EXAMINATION: Portable upright radiograph of the chest. INDICATION: Shortness of breath. COMPARISON: 04/19/2017. FINDINGS: There is moderate cardiomegaly with prominent interstitial markings which have a significant chronic component. A slight increase in the density in the lung bases when compared to 04/19/2017 could be from artifacts of superimposition of tissues on this portable radiograph compared to the previous PA and lateral views. No definite new airspace consolidation. A component of minimal vascular congestion is possible. No effusion or pneumothorax. The mediastinum and yanet appear unremarkable. IMPRESSION: Cardiomegaly with question of minimal vascular congestion. There is background chronic interstitial thickening. No definite focal infiltrate. Dictated by: Dictated on workstation # [id number]
[2017-05-04] MEDS ORDERED: methylPREDNISolone 125 MG (Solu-MEDROL) VIAL IVP ONE (11:45)
[2017-05-04 12:35] VITALS: BP 111/59
[2017-05-04] MEDS ORDERED: CATHETER FLUSH 10 ML SYR IV PRN (13:00)
[2017-05-04] MEDS ORDERED: RT-ALBUTEROL/IPRATROPIUM 3 ML (DUONEB) VIAL INH PRN (13:30)
--- NOTE | 2017-05-04 14:14 | Pulmonary Consultation ---
History of Present Illness History of Present Illness Date of Consultation 05/04/17 14:08 Time Seen by Provider: 14:08 Date of Admission History of Present Illness 61yo with hx of COPD with persistent tobacco use of 2 pks per day. Pt's last hospitalization was 07/2016 secondary to COPDAE. pt presented to ED secondary to persistent worsening SOB syed with exertion. I am consulted for pulmonary management. Allergies and Home Medications Allergies Coded Allergies: No Known Drug Allergies (Unverified , 09/10/10) Home Medications Albuterol Sulfate 18 Gm Hfa.aer.ad, 2 PUFF IH Q4H PRN for SHORTNESS OF BREATH, ( Reported) Albuterol Sulfate 2.5 Mg/3 Ml Vial.neb, 2.5 MG NEB Q6H PRN for SHORTNESS OF BREATH, (Reported) Atorvastatin Calcium 40 Mg Tablet, 40 MG PO HS, (Reported) Fluticasone/Salmeterol 1 Each Blst.w.dev, 1 PUFF IH BID PRN for SHORTNESS OF BREATH, (Reported) Glipizide 5 Mg Tablet, 10 MG PO BID, (Reported) LAST RECEIVED #360 01-13-17 TAKES 2 (5MG) TABLETS Hydrocodone/Acetaminophen 1 Each Tablet, 1 TAB PO Q6H PRN for PAIN-MODERATE, ( Reported) Lisinopril 20 Mg Tablet, 20 MG PO DAILY, (Reported) Piroxicam 20 Mg Capsule, 20 MG PO DAILY, (Reported) Past Oatkgzf-Wcqupc-Rcecjj Hx Patient Social History Alcohol Use: Denies Use Recreational Drug Use: No Smoking Status: Current Everyday Smoker Type Used: Cigarettes Recent Foreign Travel: No Contact w/Someone Who Travel: No Recent Infectious Disease Expo: No Recent Hopitalizations: Yes (PT STATES "LAST TEN DAYS") Physical Abuse: No Sexual Abuse: No Immunizations Up To Date Date of Pneumonia Vaccine: Jun 01, 2013 Date of Influenza Vaccine: May 31, 2014 Seasonal Allergies Seasonal Allergies: No Surgeries History of Surgeries: No Respiratory History of Respiratory Disorde: Yes Respiratory Disorders: COPD Currently Using CPAP: No Currently Using BIPAP: No Cardiovascular History of Cardiac Disorders: No Cardiac Disorders: Hypertension Neurological History of Neurological Disord: No Reproductive System Hx Reproductive Disorders: No Genitourinary History of Genitourinary Disor: No Gastrointestinal History of Gastrointestinal Di: No Musculoskeletal History of Musculoskeletal Dis: Yes Musculoskeletal Disorders: Rheumatoid Arthritis Endocrine History of Endocrine Disorders: Yes (TYPE 2 DIABETES) Endocrine Disorders: Diabetes, Non-Insulin dep HEENT History of HEENT Disorders: No Loss of Vision: Left Cancer History of Cancer: No Psychosocial History of Psychiatric Problem: No Suicide Risk Score: 0 Integumentary History of Skin or Integumenta: No Skin/Integumentary Disorders: Psoriasis Blood Transfusions History of Blood Disorders: No Adverse Reaction to a Blood Tr: No Family Medical History Family Medial History: Cancer G8 SISTER Family history: Diabetes mellitus G8 SISTER Review of Systems Time Seen by Provider: 15:47 Constitutional: Weakness, Malaise, No: Fever, Chills, Sweats, Other Eyes: No: Pain, Vision change, Conjunctivae inflammation, Eyelid inflammation, Other, Redness ENT: No: Ear pain, Ear discharge, Nose pain, Nose discharge, Nose congestion, Mouth pain, Mouth swelling, Throat pain, Throat swelling, Other Respiratory: Cough, Dry, Shortness of breath, SOB with excertion Cardiovascular: Palpitations, No: Chest Pain, Orthopnea, Paroxysmal Noc. Dyspnea, Edema, Lt Headedness, Other Exam Exam Vital Signs Date Time Temp Pulse Resp B/P (MAP) Pulse Ox O2 Delivery O2 Flow Rate FiO2 05/04/17 12:35 97.8 109 24 111/59 99 Nasal Cannula 2.00 05/04/17 12:24 117 22 98 Nasal Cannula 2.00 05/04/17 10:29 98 05/04/17 10:18 94 Nasal Cannula 2.00 05/04/17 09:30 98.1 110 24 119/76 97 Nasal Cannula 2.00 General Appearance: No Apparent Distress, Anxious HEENT: PERRL/EOMI, Normal ENT Inspection, Pharynx Normal Neck: Normal Inspection, Non Tender, Supple Respiratory: No Respiratory Distress, Decreased Breath Sounds Cardiovascular: Regular Rate, Rhythm, No Edema, No Murmur, Normal Peripheral Pulses Capillary Refill: Less Than 3 Seconds Gastrointestinal: normal bowel sounds, non tender, soft, no organomegaly, no pulsatile mass Extremity: Normal Capillary Refill, Normal Inspection, Normal Range of Motion Neurologic/Psychiatric: Alert, Oriented x3 Skin: Normal Color, Warm/Dry Lymphatic: No Adenopathy Results Lab Laboratory Tests 05/04/17 10:10 Assessment/Plan Assessment/Plan COPDAE with worsening SOB -oxygen -Solumedrol -Check ABG -Probable pneumonia with sepsis -Start zosyn -agustin culture -SVNs -LA -IVF NS 150cc/hr -check influenza swab Sinus tachycardia -IVF Dehydration Obesity CXR and labs reviewed 255 Clinical Quality Measures DVT/VTE Risk/Contraindication: Risk Factor Score Per Nursin RFS Level Per Nursing on Admit: 4+=Very High CABRERA RAMIREZ DO May 04, 2017 14:14
[2017-05-04] MEDS ORDERED: PIPERACILLIN SODIUM/TAZOBACTAM 4.5 GM in NS (IVPB) 100 ML IV SCH (14:30)
[2017-05-04] MEDS ORDERED: PIPERACILLIN/TAZOBACTAM 4.5 GM/NS 100 ML IV NR ×2 (14:30)
[2017-05-04] MEDS: RT-ALBUTEROL/IPRATROPIUM 3 ML (DUONEB) VIAL INH SCH ×3 (14:57→21:51)
[2017-05-04] MEDS ORDERED: ALBU2.5V4 NEB (15:07)
[2017-05-04] MEDS ORDERED: INFLUENZA TRIvalent 2017-2018 0.5 ML/45 MCG SYR IM ONE (15:15)
[2017-05-04 15:39] LABS: ABG BASE EXCESS -3.1 MMOL/L (-2.5-2.5); ABG HCO3 21 MMOL/L (23-27); ABG OXYGEN SATURATION 93 % (94-100); ABG PCO2 33 MMHG (35-45); ABG PH 7.41 (7.37-7.43); ABG PO2 62 MMHG (79-93); ABG TCO2 21.8 MMOL/L (21.0-31.0); ALLENS TEST POSITIVE
[2017-05-04 15:40] LABS: PATIENT TEMP 97.7
[2017-05-04] MEDS ORDERED: FLUT1DIS26 IH (15:42)
[2017-05-04] MEDS ORDERED: GLIP5TAB13 PO (15:42)
[2017-05-04] MEDS: CATHETER FLUSH 10 ML SYR IV SCH ×2 (15:43→20:54)
[2017-05-04 15:44] VITALS: BP 104/68
[2017-05-04] MEDS: inSUlin (REGULAR) HUMAN 1 UNIT/0.01 ML (CHARGE PER UNIT) SC SCH ×2 (15:49→20:54)
[2017-05-04 15:58] LABS: BILIRUBIN,URINE NEGATIVE (NEGATIVE); KETONES,URINE NEGATIVE (NEGATIVE); LEUKOCYTE ESTERASE ,URINE 1+ (NEGATIVE); NITRITE,URINE NEGATIVE (NEGATIVE); PH,URINE 5 (5-9); PROTEIN,URINE 2+ (NEGATIVE); UROBILINOGEN,URINE 1 MG/DL (NORMAL)
[2017-05-04] MEDS ORDERED: FOLI1TAB24 PO (15:58)
[2017-05-04] MEDS ORDERED: METH2.5T PO (15:58)
[2017-05-04] MEDS ORDERED: HYDR200T46 PO (15:58)
[2017-05-04 16:06] LABS: GRANULAR CASTS,URINE RARE /LPF
[2017-05-04] MEDS: NS IV 1000 ML 1,000 ML IV SCH ×2 (16:24→22:44)
[2017-05-04 16:28] VITALS: BP 119/76
[2017-05-04] MEDS ORDERED: NS IV 1000 ML 1,000 ML IV SCH ×2 (17:30→20:00)
[2017-05-04] MEDS ORDERED: RX-HYDROCODONE/APAP 5/325 MG #4 TAB PK PO PRN (19:15)
[2017-05-04 19:54] VITALS: BP 98/62
[2017-05-04] MEDS ORDERED: HYDROcodone/APAP 5 MG/325 MG (LORTAB) TAB PO PRN (20:15)
[2017-05-04 20:24] VITALS: BP 98/62
[2017-05-04] MEDS: methylPREDNISolone 125 MG (Solu-MEDROL) VIAL IV SCH (20:53)
[2017-05-04] MEDS: ATORVASTATIN 40 MG (LIPITOR) TABLET PO SCH (20:53)
[2017-05-04] MEDS: PIPERACILLIN/TAZOBACTAM 4.5 GM/NS 100 ML IVPB IV SCH ×2 (21:59)
[2017-05-05 00:38] VITALS: BP 109/58
[2017-05-05] MEDS: RT-ALBUTEROL/IPRATROPIUM 3 ML (DUONEB) VIAL INH SCH ×6 (02:43→21:43)
[2017-05-05 04:10] VITALS: BP 109/59
[2017-05-05 04:43] LABS: ABG BASE EXCESS -4.5 MMOL/L (-2.5-2.5); ABG HCO3 20 MMOL/L (23-27); ABG OXYGEN SATURATION 95 % (94-100); ABG PCO2 33 MMHG (35-45); ABG PH 7.39 (7.37-7.43); ABG PO2 73 MMHG (79-93); ABG TCO2 20.7 MMOL/L (21.0-31.0)
[2017-05-05 04:44] LABS: ALLENS TEST YES-POS; PATIENT TEMP 97.7
[2017-05-05] MEDS: PIPERACILLIN/TAZOBACTAM 4.5 GM/NS 100 ML IVPB IV SCH ×6 (04:55→20:48)
[2017-05-05] MEDS: CATHETER FLUSH 10 ML SYR IV SCH ×3 (05:04→21:11)
[2017-05-05] MEDS: methylPREDNISolone 125 MG (Solu-MEDROL) VIAL IV SCH ×3 (05:04→21:11)
[2017-05-05] MEDS: NS IV 1000 ML 1,000 ML IV SCH (05:35)
[2017-05-05] MEDS: inSUlin (REGULAR) HUMAN 1 UNIT/0.01 ML (CHARGE PER UNIT) SC SCH ×4 (05:51→21:11)
[2017-05-05] MEDS: glipiZIDE 5 MG (GLUCOTROL) TAB PO SCH ×2 (05:51→16:13)
[2017-05-05 06:02] LABS: BASOPHILS % (AUTO) 0 % (0-10); EOSINOPHILS % (AUTO) 0 % (0-10); LYMPHOCYTES # (AUTO) 0.7 X 10^3 (1.0-4.0); LYMPHOCYTES % (AUTO) 3 % (12-44); MEAN CORPUSCULAR HEMOGLOBIN 31 PG (25-34); MEAN CORPUSCULAR HGB CONC 33 G/DL (32-36); MEAN CORPUSCULAR VOLUME 93 FL (80-99); MEAN PLATELET VOLUME 10.1 FL (7.4-10.4); MONOCYTES # (AUTO) 0.6 X 10^3 (0.0-1.0); MONOCYTES % (AUTO) 3 % (0-12); NEUTROPHILS # (AUTO) 18.8 X 10^3 (1.8-7.8); NEUTROPHILS % (AUTO) 94 % (42-75); PLATELET COUNT 300 10^3/uL (130-400); RED BLOOD COUNT 3.61 10^6/uL (4.35-5.85); RED CELL DISTRIBUTION WIDTH 13.1 % (10.0-14.5); WHITE BLOOD COUNT 20.1 10^3/uL (4.3-11.0)
[2017-05-05 06:24] LABS: ANION GAP 11 MMOL/L (5-14); BLOOD UREA NITROGEN 23 MG/DL (7-18); BUN/CREATININE RATIO 28; CALCIUM 8.5 MG/DL (8.5-10.1); CARBON DIOXIDE 18 MMOL/L (21-32); CHLORIDE 106 MMOL/L (98-107); CREATININE SERUM 0.83 MG/DL (0.60-1.30); GFR ESTIMATED > 60; GLUCOSE 300 MG/DL (70-105); MAGNESIUM 1.4 MG/DL (1.8-2.4); POTASSIUM 3.8 MMOL/L (3.6-5.0); SODIUM 135 MMOL/L (135-145)
--- NOTE | 2017-05-05 07:59 | Pulmonary Progress Note ---
Exam Exam Vital Signs Date Time Temp Pulse Resp B/P (MAP) Pulse Ox O2 Delivery O2 Flow Rate FiO2 05/05/17 06:54 90 Room Air 05/05/17 04:10 97.9 99 20 109/59 96 Nasal Cannula 2.00 05/05/17 02:10 90 Room Air 2.00 05/05/17 00:38 98.4 101 22 109/58 95 Nasal Cannula 2.00 05/04/17 21:51 99 Nasal Cannula 2.00 05/04/17 20:45 Nasal Cannula 2.00 05/04/17 20:24 98.6 110 20 98/62 95 Nasal Cannula 2.00 05/04/17 19:54 100 98/62 05/04/17 18:12 95 Nasal Cannula 2.00 05/04/17 16:28 118 92 28 05/04/17 15:44 97.3 120 18 104/68 95 Nasal Cannula 2.00 05/04/17 14:57 92 Nasal Cannula 2.00 05/04/17 12:35 97.8 109 24 111/59 99 Nasal Cannula 2.00 05/04/17 12:35 Nasal Cannula 2.00 05/04/17 12:24 117 22 98 Nasal Cannula 2.00 05/04/17 10:29 98 05/04/17 10:18 94 Nasal Cannula 2.00 05/04/17 09:30 98.1 110 24 119/76 97 Nasal Cannula 2.00 General Appearance: No Apparent Distress, Anxious HEENT: PERRL/EOMI, Normal ENT Inspection, Pharynx Normal Neck: Normal Inspection, Non Tender, Supple Respiratory: No Respiratory Distress, Decreased Breath Sounds Cardiovascular: Regular Rate, Rhythm, No Edema, No Murmur, Normal Peripheral Pulses Capillary Refill: Less Than 3 Seconds Gastrointestinal: normal bowel sounds, non tender, soft, no organomegaly, no pulsatile mass Extremity: Normal Capillary Refill, Normal Inspection, Normal Range of Motion Neurologic/Psychiatric: Alert, Oriented x3 Skin: Normal Color, Warm/Dry Lymphatic: No Adenopathy Results Lab Laboratory Tests 05/04/17 10:10 05/05/17 05:16 Assessment/Plan Assessment/Plan COPDAE with worsening SOB -oxygen -Solumedrol -Check ABG -Probable pneumonia with sepsis - zosyn -agustin cultures pending -SVNs -LA -IVF Sinus tachycardia -IVF Dehydration Obesity CXR and labs reviewed 233 Clinical Quality Measures DVT/VTE Risk/Contraindication: Risk Factor Score Per Nursin RFS Level Per Nursing on Admit: 4+=Very High CABRERA RAMIREZ DO May 05, 2017 07:59
[2017-05-05 08:00] VITALS: BP 100/55
[2017-05-05] MEDS: IBUPROFEN 800 MG (MOTRIN) TAB PO SCH ×3 (08:32→20:48)
[2017-05-05] MEDS: HYDROXYCHLOROQUINE 200 MG (PLAQUENIL) TAB PO SCH (08:33)
[2017-05-05] MEDS: FOLIC ACID 1 MG TAB PO SCH (08:33)
[2017-05-05] MEDS: MAGNESIUM 1 GM/100 ML IVPB 100 ML IV SCH ×2 (08:35→09:08)
--- NOTE | 2017-05-05 08:49 | Diagnostic Imaging Report ---
INDICATION: Shortness of air. TECHNIQUE: Single-view chest 3:04 AM. CORRELATION STUDY: 05/04/2017. FINDINGS: Heart size remains enlarged. Vasculature has increased from prior study, and there is increasing interstitial prominence with suggestion of worsening fluid overload or failure. No definitive focal infiltrate. However, there does produce likely component of chronic interstitial disease. IMPRESSION: Features favor worsening changes of fluid overload or failure likely superimposed on chronic lung disease. Dictated by: Dictated on workstation # [id number]
[2017-05-05] MEDS ORDERED: PIROXICAM 20 MG PO SCH (09:00)
[2017-05-05] MEDS: lisINopril 20 MG (ZESTRIL) TAB PO SCH (09:05)
[2017-05-05 12:00] VITALS: BP 113/58
--- NOTE | 2017-05-05 12:29 | History & Physicial ([facility]) ---
HPI History of Present Illness: Aleksander presented to hospital with complaints of shortness of breath that developed over the past week. He has been short of breath at baseline and was hospitalized earlier this year for COPD exacerbation. He acknowledges a dry cough, no sputum production. Denies fevers. Does not have home oxygen but periodically uses inhalers. He smokes 2PPD and has not be ready to quit as yet. he also has rheumatoid arthritis and so hasn't been able to be as active as he would like. He recently saw Dr Stokes in consult in his clinic. Source: patient Exam Limitations: no limitations Date seen by provider: May 05, 2017 Time Seen by Provider: 09:30 Attending Physician Selena Gaitan MD PCP Jose F Reyez MD Consult Kyree Stokes DO Date of Admission May 04, 2017 at 11:40 am Home Medications Home Medications Reviewed patient Home Medication Reconciliation Form Allergies Coded Allergies: No Known Drug Allergies (Unverified , 09/10/10) [facility] Hx Patient Social History Alcohol Use: Denies Use Recreational Drug Use: No Smoking Status: Current Everyday Smoker Type Used: Cigarettes Recent Foreign Travel: No Contact w/other who traveled: No Recent Hopitalizations: Yes (PT STATES "LAST TEN DAYS") Recent Infectious Disease Expo: No Physical Abuse Screen: No Sexual Abuse: No Immunizations Up To Date Date of Pneumonia Vaccine: Jun 01, 2013 Date of Influenza Vaccine: May 31, 2014 Past Medical History Rhuematoid Arthritis Pulmonary Fibrosis follows with Dr Stokes Hypertension Non Insulin Dependent DM Family Medical History Family History: Cancer G8 SISTER Family history: Diabetes mellitus G8 SISTER Review of Systems ([facility]) Constitutional: no symptoms reported All Other Systems Reviewed Negative Unless Noted: Yes Reviewed Test Results Reviewed Test Results Lab Laboratory Tests Test 05/04/17 10:10 05/04/17 14:42 05/04/17 15:27 05/04/17 15:41 Range/Units White Blood Count 18.8 H 4.3-11.0 10^3/uL Red Blood Count 4.30 L 4.35-5.85 10^6/uL Hemoglobin 13.1 L 13.3-17.7 G/DL Hematocrit 40 40-54 % Mean Corpuscular Volume 92 80-99 FL Mean Corpuscular Hemoglobin 31 25-34 PG Mean Corpuscular Hemoglobin Concent 33 32-36 G/DL Red Cell Distribution Width 13.2 10.0-14.5 % Platelet Count 339 130-400 10^3/uL Mean Platelet Volume 10.3 7.4-10.4 FL Neutrophils (%) (Auto) 84 H 42-75 % Lymphocytes (%) (Auto) 7 L 12-44 % Monocytes (%) (Auto) 6 0-12 % Eosinophils (%) (Auto) 2 0-10 % Basophils (%) (Auto) 0 0-10 % Neutrophils # (Auto) 15.9 H 1.8-7.8 X 10^3 Lymphocytes # (Auto) 1.2 1.0-4.0 X 10^3 Monocytes # (Auto) 1.2 H 0.0-1.0 X 10^3 Eosinophils # (Auto) 0.5 H 0.0-0.3 10^3/uL Basophils # (Auto) 0.1 0.0-0.1 10^3/uL Neutrophils % (Manual) 83 % Lymphocytes % (Manual) 7 % Monocytes % (Manual) 6 % Eosinophils % (Manual) 2 % Basophils % (Manual) 0 % Band Neutrophils 2 % Blood Morphology Comment NORMAL Sodium Level 133 L 135-145 MMOL/L Potassium Level 4.2 3.6-5.0 MMOL/L Chloride Level 102 98-107 MMOL/L Carbon Dioxide Level 22 21-32 MMOL/L Anion Gap 9 5-14 MMOL/L Blood Urea Nitrogen 15 7-18 MG/DL Creatinine 0.89 0.60-1.30 MG/DL Estimat Glomerular Filtration Rate > 60 BUN/Creatinine Ratio 17 Glucose Level 262 H 70-105 MG/DL Calcium Level 9.0 8.5-10.1 MG/DL Total Bilirubin 0.8 0.1-1.0 MG/DL Aspartate Amino Transf (AST/SGOT) 12 5-34 U/L Alanine Aminotransferase (ALT/SGPT) 17 0-55 U/L Alkaline Phosphatase 83 40-136 U/L Total Protein 7.4 6.4-8.2 GM/DL Albumin 3.3 3.2-4.5 GM/DL Lactic Acid Level 2.72 *H 0.50-2.00 MMOL/L B-Type Natriuretic Peptide 38.4 <100.0 PG/ML Blood Gas Puncture Site LEFT RADIAL Blood Gas Patient Temperature 97.7 Arterial Blood pH 7.41 7.37-7.43 Arterial Blood Partial Pressure CO2 33 L 35-45 MMHG Arterial Blood Partial Pressure O2 62 L 79-93 MMHG Arterial Blood HCO3 21 L 23-27 MMOL/L Arterial Blood Total CO2 21.8 21.0-31.0 MMOL/L Arterial Blood Oxygen Saturation 93 L 94-100 % Arterial Blood Base Excess -3.1 L -2.5-2.5 MMOL/L Cristobal Test POSITIVE Blood Gas Ventilator Setting NO Blood Gas Inspired Oxygen 2 L Urine Color OBIE H Urine Clarity SLIGHTLY CLOUDY Urine pH 5 5-9 Urine Specific [place] 1.025 H 1.016-1.022 Urine Protein 2+ H NEGATIVE Urine Glucose (UA) 3+ H NEGATIVE Urine Ketones NEGATIVE NEGATIVE Urine Nitrite NEGATIVE NEGATIVE Urine Bilirubin NEGATIVE NEGATIVE Urine Urobilinogen 1 NORMAL MG/DL Urine Leukocyte Esterase 1+ H NEGATIVE Urine RBC (Auto) NEGATIVE NEGATIVE Urine RBC NONE /HPF Urine WBC 2-5 /HPF Urine Crystals NONE /LPF Urine Bacteria NONE /HPF Urine Casts PRESENT /LPF Urine Hyaline Casts 10-25 H /LPF Urine Granular Casts RARE /LPF Urine Mucus SMALL H /LPF Urine Culture Indicated NO Test 05/04/17 15:44 05/04/17 16:45 05/04/17 20:09 05/05/17 04:35 Range/Units Glucometer 338 H 393 H 70-110 MG/DL Lactic Acid Level 5.35 *H 0.50-2.00 MMOL/L Blood Gas Puncture Site LEFT RADIAL Blood Gas Patient Temperature 97.7 Arterial Blood pH 7.39 7.37-7.43 Arterial Blood Partial Pressure CO2 33 L 35-45 MMHG Arterial Blood Partial Pressure O2 73 L 79-93 MMHG Arterial Blood HCO3 20 L 23-27 MMOL/L Arterial Blood Total CO2 20.7 L 21.0-31.0 MMOL/L Arterial Blood Oxygen Saturation 95 94-100 % Arterial Blood Base Excess -4.5 L -2.5-2.5 MMOL/L Cristobal Test YES-POS Blood Gas Ventilator Setting NO Blood Gas Inspired Oxygen 2L Test 05/05/17 05:16 05/05/17 05:17 Range/Units White Blood Count 20.1 H 4.3-11.0 10^3/uL Red Blood Count 3.61 L 4.35-5.85 10^6/uL Hemoglobin 11.1 L 13.3-17.7 G/DL Hematocrit 34 L 40-54 % Mean Corpuscular Volume 93 80-99 FL Mean Corpuscular Hemoglobin 31 25-34 PG Mean Corpuscular Hemoglobin Concent 33 32-36 G/DL Red Cell Distribution Width 13.1 10.0-14.5 % Platelet Count 300 130-400 10^3/uL Mean Platelet Volume 10.1 7.4-10.4 FL Neutrophils (%) (Auto) 94 H 42-75 % Lymphocytes (%) (Auto) 3 L 12-44 % Monocytes (%) (Auto) 3 0-12 % Eosinophils (%) (Auto) 0 0-10 % Basophils (%) (Auto) 0 0-10 % Neutrophils # (Auto) 18.8 H 1.8-7.8 X 10^3 Lymphocytes # (Auto) 0.7 L 1.0-4.0 X 10^3 Monocytes # (Auto) 0.6 0.0-1.0 X 10^3 Eosinophils # (Auto) 0.0 0.0-0.3 10^3/uL Basophils # (Auto) 0.0 0.0-0.1 10^3/uL Sodium Level 135 135-145 MMOL/L Potassium Level 3.8 3.6-5.0 MMOL/L Chloride Level 106 98-107 MMOL/L Carbon Dioxide Level 18 L 21-32 MMOL/L Anion Gap 11 5-14 MMOL/L Blood Urea Nitrogen 23 H 7-18 MG/DL Creatinine 0.83 0.60-1.30 MG/DL Estimat Glomerular Filtration Rate > 60 BUN/Creatinine Ratio 28 Glucose Level 300 H 70-105 MG/DL Calcium Level 8.5 8.5-10.1 MG/DL Phosphorus Level 2.8 2.3-4.7 MG/DL Magnesium Level 1.4 L 1.8-2.4 MG/DL Glucometer 300 H 70-110 MG/DL Radiology Date of Exam: 05/05/17 CHEST 1 VIEW, AP/PA ONLY INDICATION: Shortness of air. TECHNIQUE: Single-view chest 3:04 AM. CORRELATION STUDY: 05/04/2017. FINDINGS: Heart size remains enlarged. Vasculature has increased from prior study, and there is increasing interstitial prominence with suggestion of worsening fluid overload or failure. No definitive focal infiltrate. However, there does produce likely component of chronic interstitial disease. IMPRESSION: Features favor worsening changes of fluid overload or failure likely superimposed on chronic lung disease. Physical Exam-([facility]) Physical Exam Vital Signs VS - Last 72 Hours, by Label 05/04/17 05/04/17 05/04/17 05/04/17 09:30 10:18 10:29 12:24 Temp 98.1 Pulse 110 117 Resp 24 22 B/P (MAP) 119/76 Pulse Ox 97 94 98 98 O2 Delivery Nasal Cannula Nasal Cannula Nasal Cannula O2 Flow Rate 2.00 2.00 2.00 05/04/17 05/04/17 05/04/17 05/04/17 12:35 12:35 14:57 15:44 Temp 97.8 97.3 Pulse 109 120 Resp 24 18 B/P (MAP) 111/59 104/68 Pulse Ox 99 92 95 O2 Delivery Nasal Cannula Nasal Cannula Nasal Cannula Nasal Cannula O2 Flow Rate 2.00 2.00 2.00 2.00 05/04/17 05/04/17 05/04/17 05/04/17 16:28 18:12 19:54 20:24 Temp 98.6 Pulse 118 100 110 Resp 20 B/P (MAP) 98/62 98/62 Pulse Ox 92 95 95 O2 Delivery Nasal Cannula Nasal Cannula O2 Flow Rate 2.00 2.00 FiO2 28 05/04/17 05/04/17 05/05/17 05/05/17 20:45 21:51 00:38 02:10 Temp 98.4 Pulse 101 Resp 22 B/P (MAP) 109/58 Pulse Ox 99 95 90 O2 Delivery Nasal Cannula Nasal Cannula Nasal Cannula Room Air O2 Flow Rate 2.00 2.00 2.00 2.00 05/05/17 05/05/17 05/05/17 05/05/17 04:10 06:54 08:00 08:29 Temp 97.9 97.1 Pulse 99 101 Resp 20 20 B/P (MAP) 109/59 100/55 Pulse Ox 96 90 92 O2 Delivery Nasal Cannula Room Air Room Air Room Air O2 Flow Rate 2.00 05/05/17 10:32 Pulse Ox 94 O2 Delivery Nasal Cannula O2 Flow Rate 2.00 Capillary Refill : Less Than 3 Seconds General Appearance: WD/WN, no apparent distress HEENT: PERRL/EOMI, normal ENT inspection, pharynx normal Neck: non-tender, full range of motion, supple, normal inspection Respiratory: chest non-tender, lungs clear, no respiratory distress, decreased breath sounds, crackles, wheezing Cardiovascular: regular rate, rhythm, no edema, no gallop, no JVD, no murmur Gastrointestinal: normal bowel sounds, non tender, soft, no organomegaly Extremities: normal range of motion, non-tender, normal inspection, no pedal edema, no calf tenderness, normal capillary refill Neurologic/Psychiatric: irish moss gatherer II-XII nml as tested, no motor/sensory deficits, alert, normal mood/affect, oriented x 3 Skin: normal color, warm/dry Assessment/Plan Assessment/Plan Admission Dx PNEUMONIA WITH SEPSIS ACUTE BACTERIAL EXACERBATION OF COPD IDIOPATHIC PULMONARY FIBROSIS RHEUMATOID ARTHRITIS DMT2 Plan PNEUMONIA WITH SEPSIS ACUTE BACTERIAL EXACERBATION OF COPD IDIOPATHIC PULMONARY FIBROSIS ADM - patient on solumedrol, watchign aniyah dose closely as his BS are somewhat elevated. He is also on Zosyn for antibiotics coverage. MAT protocol. Dr Stokes consulted for any additional management, will follow up with him as an outpatient as well. WBC up today but patient appears improved. Would like for him to stay at least one more day. Will do an O2 qual to see if he qualifies for O2 acutely, if not longterm. Likely needs sleep study as outpatient. RHEUMATOID ARTHRITIS ADM - can continue current med regimen, not an inpatient issue. DMT2 ADM - restart oral medications, will also have SSI B on board. DVT PROPH: SCDs Diagnosis/Problems: Clinical Quality Measures DVT/VTE Risk/Contraindication: Risk Factor Score Per Nursin RFS Level Per Nursing on Admit: 4+=Very High Copy Copies To 1: JOSE F RYEEZ MD, JULIE A MD May 05, 2017 12:29 pm
[2017-05-05 15:58] VITALS: BP 102/64
[2017-05-05 19:35] VITALS: BP 102/63
[2017-05-05] MEDS: ATORVASTATIN 40 MG (LIPITOR) TABLET PO SCH (20:48)
[2017-05-06] VITALS: BP 113/69
[2017-05-06] MEDS: RT-ALBUTEROL/IPRATROPIUM 3 ML (DUONEB) VIAL INH SCH ×3 (01:59→10:33)
[2017-05-06 04:05] VITALS: BP 97/51
[2017-05-06 04:30] LABS: BASOPHILS % (AUTO) 0 % (0-10); EOSINOPHILS % (AUTO) 0 % (0-10); LYMPHOCYTES # (AUTO) 0.6 X 10^3 (1.0-4.0); LYMPHOCYTES % (AUTO) 3 % (12-44); MEAN CORPUSCULAR HEMOGLOBIN 30 PG (25-34); MEAN CORPUSCULAR HGB CONC 32 G/DL (32-36); MEAN CORPUSCULAR VOLUME 94 FL (80-99); MEAN PLATELET VOLUME 10.2 FL (7.4-10.4); MONOCYTES # (AUTO) 0.7 X 10^3 (0.0-1.0); MONOCYTES % (AUTO) 3 % (0-12); NEUTROPHILS # (AUTO) 18.5 X 10^3 (1.8-7.8); NEUTROPHILS % (AUTO) 94 % (42-75); PLATELET COUNT 313 10^3/uL (130-400); RED BLOOD COUNT 3.51 10^6/uL (4.35-5.85); RED CELL DISTRIBUTION WIDTH 13.2 % (10.0-14.5); WHITE BLOOD COUNT 19.7 10^3/uL (4.3-11.0)
[2017-05-06 04:47] LABS: ANION GAP 9 MMOL/L (5-14); BLOOD UREA NITROGEN 24 MG/DL (7-18); BUN/CREATININE RATIO 29; CALCIUM 8.8 MG/DL (8.5-10.1); CARBON DIOXIDE 22 MMOL/L (21-32); CHLORIDE 106 MMOL/L (98-107); CREATININE SERUM 0.84 MG/DL (0.60-1.30); GFR ESTIMATED > 60; GLUCOSE 332 MG/DL (70-105); POTASSIUM 4.3 MMOL/L (3.6-5.0); SODIUM 137 MMOL/L (135-145)
[2017-05-06] MEDS: methylPREDNISolone 125 MG (Solu-MEDROL) VIAL IV SCH (05:55)
[2017-05-06] MEDS: inSUlin (REGULAR) HUMAN 1 UNIT/0.01 ML (CHARGE PER UNIT) SC SCH ×2 (05:55→12:07)
[2017-05-06] MEDS: glipiZIDE 5 MG (GLUCOTROL) TAB PO SCH (05:55)
[2017-05-06] MEDS: PIPERACILLIN/TAZOBACTAM 4.5 GM/NS 100 ML IVPB IV SCH ×2 (05:55)
[2017-05-06] MEDS: CATHETER FLUSH 10 ML SYR IV SCH (05:57)
[2017-05-06] MEDS ORDERED: INFLUENZA TRIvalent 2017-2018 0.5 ML/45 MCG SYR IM ONE (08:29)
[2017-05-06] MEDS: IBUPROFEN 800 MG (MOTRIN) TAB PO SCH (08:32)
[2017-05-06] MEDS: lisINopril 20 MG (ZESTRIL) TAB PO SCH (08:32)
[2017-05-06] MEDS: FOLIC ACID 1 MG TAB PO SCH (08:32)
[2017-05-06] MEDS: HYDROXYCHLOROQUINE 200 MG (PLAQUENIL) TAB PO SCH (08:32)
[2017-05-06 08:45] VITALS: BP 101/56
--- NOTE | 2017-05-06 09:07 | Diagnostic Imaging Report ---
EXAMINATION: Chest radiograph, portable AP view. DATE: May 06, 2017 at 0541 hours. INDICATION: 61-year-old male, shortness of breath. COMPARISON: May 05, 2017. FINDINGS: Redemonstrated borderline cardiomegaly. There is no identified pneumothorax. There is blunting of the right lateral costophrenic angle. There are bilateral predominantly interstitial opacities. IMPRESSION: 1. Grossly unchanged bilateral predominantly interstitial opacities. 2. Mild blunting of the right lateral costophrenic angle which may potentially indicate small right pleural effusion. Dictated by: Dictated on workstation # [id number]
[2017-05-06] MEDS ORDERED: PRD20T PO (09:46)
[2017-05-06] MEDS ORDERED: DOXY100T19 PO (09:46)
--- NOTE | 2017-05-06 09:54 | Discharge Instructions ---
Discharge [facility] Discharge Medications New, Converted or Re-Newed RX: Transmitted to Pharmacy New Medications: Doxycycline Monohydrate (Doxycycline Monohydrate) 100 Mg Tablet 100 MG PO BID WITH MEALS for 5 Days, #10 TAB Prednisone (Prednisone) 20 Mg Tab 40 MG PO DAILY for 5 Days, #10 TAB NS Continued Medications: Albuterol Sulfate (Ventolin Hfa) 18 Gm Hfa.aer.ad 2 PUFF IH Q4H PRN for SHORTNESS OF BREATH, INHALER Albuterol Sulfate (Albuterol Sulfate) 2.5 Mg/3 Ml Vial.neb 2.5 MG NEB Q6H PRN for SHORTNESS OF BREATH, EA Atorvastatin Calcium (Atorvastatin Calcium) 40 Mg Tablet 40 MG PO HS, TAB Fluticasone/Salmeterol (Advair 250-50 Diskus) 1 Each Blst.w.dev 1 PUFF IH BID PRN for SHORTNESS OF BREATH Folic Acid (Folic Acid) 1 Mg Tablet 1 MG PO DAILY, TAB Glipizide (Glipizide) 5 Mg Tablet 10 MG PO BID, TAB LAST RECEIVED #360 01-13-17 TAKES 2 (5MG) TABLETS Hydrocodone/Acetaminophen (Hydrocodon -Acetaminophen 5-325) 1 Each Tablet 1 TAB PO Q6H PRN for PAIN-MODERATE, TAB Hydroxychloroquine Sulfate (Hydroxychloroquine Sulfate) 200 Mg Tablet 400 MG PO DAILY, TAB TAKES 2 (200MG) TABLETS Lisinopril (Lisinopril) 20 Mg Tablet 20 MG PO DAILY, TAB Methotrexate Sodium (Methotrexate) 2.5 Mg Tablet 15 MG PO We, TAB TAKES 6 (2.5MG) TABLETS Piroxicam (Piroxicam) 20 Mg Capsule 20 MG PO DAILY, CAP Patient Instructions Patient Instructions Use home oxygen at all times until seen in the office and otherwise instructed Goal/Follow Up Appt: See Dr. Reyez next week; clinic will call you Monday with appt date and time Patient Instructions: -use home medications as directed -use home oxygen as directed -finish all antibiotics and steroids as directed -use nebulizer breathing treatments as previously instructed Return to The Hospital For: -increasing shortness of breath or increasing home oxygen requirement -fever >100.4 that does not decrease with Tylenol -nausea or vomiting that makes it unable for you to keep down your medications -any other emergent needs or concerns Activity & Diet Discharge Diet: ADA Diet Activity as Tolerated: Yes Orders-Post D/C & Referrals Pneu Vac Indicated: Yes KENNETH HERNANDEZ DO May 06, 2017 09:54
--- NOTE | 2017-05-06 09:55 | Discharge Summary ---
Diagnosis/Chief Complaint Date of Admission May 04, 2017 at 11:40 Date of Discharge 05/06/17 Admission Diagnosis Admission Diagnosis PNEUMONIA WITH SEPSIS ACUTE BACTERIAL EXACERBATION OF COPD IDIOPATHIC PULMONARY FIBROSIS RHEUMATOID ARTHRITIS DMT2 Discharge Diagnosis PNEUMONIA WITH SEPSIS ACUTE BACTERIAL EXACERBATION OF COPD New Onset Dependence on Supplemental Oxygen IDIOPATHIC PULMONARY FIBROSIS RHEUMATOID ARTHRITIS DMT2 Tobacco Abuse Psoriasis Hypertension Right Renal Cyst Obesity Chief Complaint/HPI Chief Complaint/HPI Aleksander presented to hospital with complaints of shortness of breath that developed over the past week. He has been short of breath at baseline and was hospitalized earlier this year for COPD exacerbation. He acknowledges a dry cough, no sputum production. Denies fevers. Does not have home oxygen but periodically uses inhalers. He smokes 2PPD and has not be ready to quit as yet. he also has rheumatoid arthritis and so hasn't been able to be as active as he would like. He recently saw Dr Stokes in consult in his clinic. Discharge Summary-Simple/Stand Consultations Kyree Stokes DO Discharge Physical Examination Allergies: Coded Allergies: No Known Drug Allergies (Unverified , 09/10/10) Vitals & I&Os Vital Sign - Last 12Hours Date Time Temp Pulse Resp B/P (MAP) Pulse Ox O2 Delivery O2 Flow Rate FiO2 05/06/17 08:45 96.5 102 20 101/56 97 Nasal Cannula 2.00 05/04/17 16:28 28 General Appearance: Alert, Oriented X3, Cooperative, No Acute Distress HEENT: Atraumatic, EOMI, Mucous Memb Moist/[place] Respiratory: Other (wheezing in bilateral bases, no increased work of breathing noted on 2L NC) Cardiovascular: Regular Rate, Normal S1, Normal S2 Abdominal: Normal Bowel Sounds, Soft, No Tenderness, No Hepatosplenomegaly, No Masses Extremities: No Clubbing, No Cyanosis, Normal Pulses, No Tenderness/Swelling Skin: No Rashes, No Significant Lesion Neuro: Normal Speech, Normal Tone, Cranial Nerves 3-12 NL Psych/Mental Status: Mental Status NL, Mood NL Hospital Course See final discharge diagnosis. Admission Dx PNEUMONIA WITH SEPSIS ACUTE BACTERIAL EXACERBATION OF COPD IDIOPATHIC PULMONARY FIBROSIS RHEUMATOID ARTHRITIS DMT2 Plan PNEUMONIA WITH SEPSIS ACUTE BACTERIAL EXACERBATION OF COPD IDIOPATHIC PULMONARY FIBROSIS ADM - patient on solumedrol, watchign aniyah dose closely as his BS are somewhat elevated. He is also on Zosyn for antibiotics coverage. MAT protocol. Dr Stokes consulted for any additional management, will follow up with him as an outpatient as well. WBC up today but patient appears improved. Would like for him to stay at least one more day. Will do an O2 qual to see if he qualifies for O2 acutely, if not middle or intermediate [employer]. Likely needs sleep study as outpatient. RHEUMATOID ARTHRITIS ADM - can continue current med regimen, not an inpatient issue. DMT2 ADM - restart oral medications, will also have SSI B on board. DVT PROPH: SCDs Labs Microbiology 05/04/17 Blood Culture - Preliminary, Resulted No growth 05/04/17 Blood Culture - Preliminary, Resulted No growth 05/04/17 Blood Culture - Preliminary, Resulted No growth 05/04/17 Influenza Types A,B Antigen ([place]) - Final, Complete 05/04/17 Gram Stain - Final, Complete 05/04/17 Sputum Culture - Final, Complete Usual/normal veda isolated. Laboratory Tests Test 05/04/17 10:10 05/04/17 14:42 05/04/17 15:27 05/04/17 15:41 Range/Units White Blood Count 18.8 H 4.3-11.0 10^3/uL Red Blood Count 4.30 L 4.35-5.85 10^6/uL Hemoglobin 13.1 L 13.3-17.7 G/DL Hematocrit 40 40-54 % Mean Corpuscular Volume 92 80-99 FL Mean Corpuscular Hemoglobin 31 25-34 PG Mean Corpuscular Hemoglobin Concent 33 32-36 G/DL Red Cell Distribution Width 13.2 10.0-14.5 % Platelet Count 339 130-400 10^3/uL Mean Platelet Volume 10.3 7.4-10.4 FL Neutrophils (%) (Auto) 84 H 42-75 % Lymphocytes (%) (Auto) 7 L 12-44 % Monocytes (%) (Auto) 6 0-12 % Eosinophils (%) (Auto) 2 0-10 % Basophils (%) (Auto) 0 0-10 % Neutrophils # (Auto) 15.9 H 1.8-7.8 X 10^3 Lymphocytes # (Auto) 1.2 1.0-4.0 X 10^3 Monocytes # (Auto) 1.2 H 0.0-1.0 X 10^3 Eosinophils # (Auto) 0.5 H 0.0-0.3 10^3/uL Basophils # (Auto) 0.1 0.0-0.1 10^3/uL Neutrophils % (Manual) 83 % Lymphocytes % (Manual) 7 % Monocytes % (Manual) 6 % Eosinophils % (Manual) 2 % Basophils % (Manual) 0 % Band Neutrophils 2 % Blood Morphology Comment NORMAL Sodium Level 133 L 135-145 MMOL/L Potassium Level 4.2 3.6-5.0 MMOL/L Chloride Level 102 98-107 MMOL/L Carbon Dioxide Level 22 21-32 MMOL/L Anion Gap 9 5-14 MMOL/L Blood Urea Nitrogen 15 7-18 MG/DL Creatinine 0.89 0.60-1.30 MG/DL Estimat Glomerular Filtration Rate > 60 BUN/Creatinine Ratio 17 Glucose Level 262 H 70-105 MG/DL Calcium Level 9.0 8.5-10.1 MG/DL Total Bilirubin 0.8 0.1-1.0 MG/DL Aspartate Amino Transf (AST/SGOT) 12 5-34 U/L Alanine Aminotransferase (ALT/SGPT) 17 0-55 U/L Alkaline Phosphatase 83 40-136 U/L Total Protein 7.4 6.4-8.2 GM/DL Albumin 3.3 3.2-4.5 GM/DL Lactic Acid Level 2.72 *H 0.50-2.00 MMOL/L B-Type Natriuretic Peptide 38.4 <100.0 PG/ML Blood Gas Puncture Site LEFT RADIAL Blood Gas Patient Temperature 97.7 Arterial Blood pH 7.41 7.37-7.43 Arterial Blood Partial Pressure CO2 33 L 35-45 MMHG Arterial Blood Partial Pressure O2 62 L 79-93 MMHG Arterial Blood HCO3 21 L 23-27 MMOL/L Arterial Blood Total CO2 21.8 21.0-31.0 MMOL/L Arterial Blood Oxygen Saturation 93 L 94-100 % Arterial Blood Base Excess -3.1 L -2.5-2.5 MMOL/L Cristobal Test POSITIVE Blood Gas Ventilator Setting NO Blood Gas Inspired Oxygen 2 L Urine Color OBIE H Urine Clarity SLIGHTLY CLOUDY Urine pH 5 5-9 Urine Specific [place] 1.025 H 1.016-1.022 Urine Protein 2+ H NEGATIVE Urine Glucose (UA) 3+ H NEGATIVE Urine Ketones NEGATIVE NEGATIVE Urine Nitrite NEGATIVE NEGATIVE Urine Bilirubin NEGATIVE NEGATIVE Urine Urobilinogen 1 NORMAL MG/DL Urine Leukocyte Esterase 1+ H NEGATIVE Urine RBC (Auto) NEGATIVE NEGATIVE Urine RBC NONE /HPF Urine WBC 2-5 /HPF Urine Crystals NONE /LPF Urine Bacteria NONE /HPF Urine Casts PRESENT /LPF Urine Hyaline Casts 10-25 H /LPF Urine Granular Casts RARE /LPF Urine Mucus SMALL H /LPF Urine Culture Indicated NO Test 05/04/17 15:44 05/04/17 16:45 05/04/17 20:09 05/05/17 04:35 Range/Units Glucometer 338 H 393 H 70-110 MG/DL Lactic Acid Level 5.35 *H 0.50-2.00 MMOL/L Blood Gas Puncture Site LEFT RADIAL Blood Gas Patient Temperature 97.7 Arterial Blood pH 7.39 7.37-7.43 Arterial Blood Partial Pressure CO2 33 L 35-45 MMHG Arterial Blood Partial Pressure O2 73 L 79-93 MMHG Arterial Blood HCO3 20 L 23-27 MMOL/L Arterial Blood Total CO2 20.7 L 21.0-31.0 MMOL/L Arterial Blood Oxygen Saturation 95 94-100 % Arterial Blood Base Excess -4.5 L -2.5-2.5 MMOL/L Cristobal Test YES-POS Blood Gas Ventilator Setting NO Blood Gas Inspired Oxygen 2L Test 05/05/17 05:16 05/05/17 05:17 05/05/17 11:00 05/05/17 16:00 Range/Units White Blood Count 20.1 H 4.3-11.0 10^3/uL Red Blood Count 3.61 L 4.35-5.85 10^6/uL Hemoglobin 11.1 L 13.3-17.7 G/DL Hematocrit 34 L 40-54 % Mean Corpuscular Volume 93 80-99 FL Mean Corpuscular Hemoglobin 31 25-34 PG Mean Corpuscular Hemoglobin Concent 33 32-36 G/DL Red Cell Distribution Width 13.1 10.0-14.5 % Platelet Count 300 130-400 10^3/uL Mean Platelet Volume 10.1 7.4-10.4 FL Neutrophils (%) (Auto) 94 H 42-75 % Lymphocytes (%) (Auto) 3 L 12-44 % Monocytes (%) (Auto) 3 0-12 % Eosinophils (%) (Auto) 0 0-10 % Basophils (%) (Auto) 0 0-10 % Neutrophils # (Auto) 18.8 H 1.8-7.8 X 10^3 Lymphocytes # (Auto) 0.7 L 1.0-4.0 X 10^3 Monocytes # (Auto) 0.6 0.0-1.0 X 10^3 Eosinophils # (Auto) 0.0 0.0-0.3 10^3/uL Basophils # (Auto) 0.0 0.0-0.1 10^3/uL Sodium Level 135 135-145 MMOL/L Potassium Level 3.8 3.6-5.0 MMOL/L Chloride Level 106 98-107 MMOL/L Carbon Dioxide Level 18 L 21-32 MMOL/L Anion Gap 11 5-14 MMOL/L Blood Urea Nitrogen 23 H 7-18 MG/DL Creatinine 0.83 0.60-1.30 MG/DL Estimat Glomerular Filtration Rate > 60 BUN/Creatinine Ratio 28 Glucose Level 300 H 70-105 MG/DL Calcium Level 8.5 8.5-10.1 MG/DL Phosphorus Level 2.8 2.3-4.7 MG/DL Magnesium Level 1.4 L 1.8-2.4 MG/DL Glucometer 300 H 357 H 392 H 70-110 MG/DL Test 05/05/17 21:07 05/06/17 04:04 05/06/17 05:54 Range/Units Glucometer 378 H 295 H 70-110 MG/DL White Blood Count 19.7 H 4.3-11.0 10^3/uL Red Blood Count 3.51 L 4.35-5.85 10^6/uL Hemoglobin 10.6 L 13.3-17.7 G/DL Hematocrit 33 L 40-54 % Mean Corpuscular Volume 94 80-99 FL Mean Corpuscular Hemoglobin 30 25-34 PG Mean Corpuscular Hemoglobin Concent 32 32-36 G/DL Red Cell Distribution Width 13.2 10.0-14.5 % Platelet Count 313 130-400 10^3/uL Mean Platelet Volume 10.2 7.4-10.4 FL Neutrophils (%) (Auto) 94 H 42-75 % Lymphocytes (%) (Auto) 3 L 12-44 % Monocytes (%) (Auto) 3 0-12 % Eosinophils (%) (Auto) 0 0-10 % Basophils (%) (Auto) 0 0-10 % Neutrophils # (Auto) 18.5 H 1.8-7.8 X 10^3 Lymphocytes # (Auto) 0.6 L 1.0-4.0 X 10^3 Monocytes # (Auto) 0.7 0.0-1.0 X 10^3 Eosinophils # (Auto) 0.0 0.0-0.3 10^3/uL Basophils # (Auto) 0.0 0.0-0.1 10^3/uL Sodium Level 137 135-145 MMOL/L Potassium Level 4.3 3.6-5.0 MMOL/L Chloride Level 106 98-107 MMOL/L Carbon Dioxide Level 22 21-32 MMOL/L Anion Gap 9 5-14 MMOL/L Blood Urea Nitrogen 24 H 7-18 MG/DL Creatinine 0.84 0.60-1.30 MG/DL Estimat Glomerular Filtration Rate > 60 BUN/Creatinine Ratio 29 Glucose Level 332 H 70-105 MG/DL Calcium Level 8.8 8.5-10.1 MG/DL Phosphorus Level 2.5 2.3-4.7 MG/DL Magnesium Level 2.0 1.8-2.4 MG/DL Radiology Reviewed Date of Exam: 05/05/17 CHEST 1 VIEW, AP/PA ONLY INDICATION: Shortness of air. TECHNIQUE: Single-view chest 3:04 AM. CORRELATION STUDY: 05/04/2017. FINDINGS: Heart size remains enlarged. Vasculature has increased from prior study, and there is increasing interstitial prominence with suggestion of worsening fluid overload or failure. No definitive focal infiltrate. However, there does produce likely component of chronic interstitial disease. IMPRESSION: Features favor worsening changes of fluid overload or failure likely superimposed on chronic lung disease. Discussion & Recommendations Patient reports this morning that he is feeling significantly better, and that he feels ready to go home. He has a decreasing WBC count, has been able to tolerate his normal ADA diet and reports that his breathing is doing well on his O2 per NC Patient has been qualified for home O2 use at all time and we will have him follow up with Dr. Reyez in the office this week; he will be contacted on Monday with his discharge follow up appt date and time. We will discharge him to home with his supplemental oxygen, 5 days of doxycycline and 5 days of prednisone. Patient reports that he has nebulizer vials of albuterol at home and is going to hand picker his neb machine upon discharge. Discharge Condition at discharge Stable, significantly improved from admission Instructions to patient/family Please see electronic discharge instructions given to patient. Discharge Medications Reviewed and agree with Discharge Medication list on patient's Discharge Instruction sheet Clinical Quality Measures DVT/VTE Risk/Contraindication: Risk Factor Score Per Nursin RFS Level Per Nursing on Admit: 4+=Very High Copy Copies To 1: JOSE F REYEZ MD, MARGARET E DO May 06, 2017 09:55
[2017-05-06 12:45] VITALS: BP 101/56
[2017-05-06 12:59] VITALS: BP 108/60
[2017-05-06 16:27] LABS: LEGIONELLA PNEU ANTIGEN URINE Negative; STREP PNEUMOCOCCUS ANTIG Negative
== END 2017-05-06 12:45 | disposition home or self-care (01) | DRG 871 ==
LOC: EDUNIT# 09:28 → ER 09:31 → 4TH 11:40
PROVIDERS: ADMIT Pediatrics; ATTEND Pediatrics
DX: A41.9 Sepsis, unspecified organism (principal); J44.0 Chronic obstructive pulmonary disease with (acute) lower respiratory infection; J18.9 Pneumonia, unspecified organism; J44.1 Chronic obstructive pulmonary disease with (acute) exacerbation; E86.0 Dehydration; R00.0 Tachycardia, unspecified; J84.112 Idiopathic pulmonary fibrosis; F17.210 Nicotine dependence, cigarettes, uncomplicated; I10 Essential (primary) hypertension; M06.9 Rheumatoid arthritis, unspecified; E11.9 Type 2 diabetes mellitus without complications; L40.9 Psoriasis, unspecified; E66.9 Obesity, unspecified; Z68.34 Body mass index [BMI] 34.0-34.9, adult
CPT/HCPCS: 36415; 71010; 80048; 80053; 81000; 82805; 82962; 83605; 83735; 83880; 84100; 85007; 85025; 85027; 87040; 87070; 87205; 87449; 87804; 87899; 94010; 94640; 94760; 94761; 96374; 99284

== ENCOUNTER 2017-12-21 16:46 | Emergency (ER) | payer MEDICAID ==
[~2017-12-21] VITALS: Ht 170.2 cm; Wt 97.5 kg
[~2017-12-21 16:46] MED LIST changes: +ALBU2.5V4 NEB; +AZIT250T12 PO; -AZIT250T5 PO; +DOXY100T19 PO; +FLUT1DIS26 IH; +FOLI1TAB24 PO; +GLIP5TAB13 PO; +METH2.5T PO
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
--- OUTSIDE RECORDS SUMMARY | 2017-12-21 17:02 | XMS REPORT ---
Author Author JOSE F VALLEJO Organization [facility] Address [address] [place] [address] Care Team Providers Care Price Changer Name Role Phone JOSE F VALLEJO Unavailable PROBLEMS Type Condition ICD9-CM Code UZW39-DU Code Onset Dates Condition Status SNOMED Code Problem Chronic obstructive pulmonary disease, unspecified J44.9 Active 68001604 Problem Psoriasis L40.9 Active 7680338 Problem Hyperlipidemia E78.5 Active 82123796 Problem Lactic acidosis E87.2 Active 82876139 Problem Renal cyst, right N28.1 Active 00916436 Problem Idiopathic pulmonary fibrosis J84.112 Active 647268495 Problem Tobacco use Z72.0 Active 214691850 Problem Essential hypertension I10 Active 11127825 Problem 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 Active 991609000 Problem Vision loss, left eye H54.62 Active 97633411 Problem Hematochezia K92.1 Active 826498936 Problem Type 2 diabetes mellitus without complication E11.9 Active 72993398 ALLERGIES No Information SOCIAL HISTORY Never Assessed PLAN OF CARE VITAL SIGNS MEDICATIONS Medication Instructions Dosage Frequency Start Date End Date Duration Status Hydroxychloroquine Sulfate 200 mg Orally Once a day 2 tablet with food or milk 24h 90 days Active Clobetasol Propionate 0.05 % Externally Twice a day as needed for psoriasis 1 application to affected area Dec, Active Piroxicam 20 mg Orally Once a day 1 capsule with food 24h 90 days Active RESULTS No Results PROCEDURES No Known procedures IMMUNIZATIONS No Known Immunizations MEDICAL (GENERAL) HISTORY [...] Hospitalization History Resp distress with hypoxia, pulmonary fibrosis-[facility] 08/03/16
--- OUTSIDE RECORDS SUMMARY | 2017-12-21 17:02 | XMS REPORT ---
Author Author GENEVIEVE JOSE F [facility] Address [address] [place] [address] Care Team Providers Care Lending Consultant Name Role Phone GENEVIEVESANTOSH LEMAHANY Unavailable PROBLEMS Type Condition ICD9-CM Code CBU90-XM Code Onset Dates Condition Status SNOMED Code Problem Psoriasis L40.9 Active 4330024 Problem 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 Active 857900202 Problem Vision loss, left eye H54.62 Active 71784664 Problem Primary insomnia F51.01 Active 0693733 Problem Other elevated white blood cell (WBC) count D72.828 Active 029056388 Problem Essential hypertension I10 Active 56724420 Problem Hematochezia K92.1 Active 225399081 Problem Type 2 diabetes mellitus with hyperglycemia, without long-term current use of insulin E11.65 Active 35976294 Problem Tobacco use Z72.0 Active 991933400 Problem Renal cyst, right N28.1 Active 94036160 Problem Idiopathic pulmonary fibrosis J84.112 Active 461343458 Problem Chronic obstructive pulmonary disease, unspecified J44.9 Active 51749675 Problem Lactic acidosis E87.2 Active 27792437 Problem Hyperlipidemia E78.5 Active 25277068 ALLERGIES No Information ENCOUNTERS Encounter Location Date Diagnosis [facility] [address], [place] [address] Sep, [address], [place] [address] Sep, Type 2 diabetes mellitus with hyperglycemia, without long- term current use of insulin E11.65 ; 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 ; Hyperlipidemia E78.5 ; Essential hypertension I10 ; Other elevated white blood cell (WBC) count D72.828 ; Primary insomnia F51.01 and Tobacco use Z72.0 [id number] [place] [address] 71625- 8837 Sep, [place] [id number] [place] [address] 12031- 1209 Aug, Type 2 diabetes mellitus with hyperglycemia, without long- term current use of insulin E11.65 and Hyperlipidemia E78.5 [place] [id number] [place] [address] 54036- 9649 Jul, [place] [id number] [place] [address] 25634- 3927 Jul, 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 [place] [address] 088577- 9386 Jul, 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 [place] [id number] [place] [address] 66637- 5573 Jun, Essential hypertension I10 and Hyperlipidemia E78.5 [place] [id number] [place] [address] 80764- 2510 Jun, Chronic obstructive pulmonary disease, unspecified J44.9 [place] [id number] [place] [address] 19888- 1113 Jun, [place] [id number] [place] [address] 73230- 8792 May, Type 2 diabetes mellitus without complication E11.9 ; 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 ; Psoriasis L40.9 and Essential hypertension I10 [facility] [id number] [place] [address] [id number] May, Dental examination Z01.20 and Dental caries K02.9 [place] [id number] [place] [address] 02879- 0953 Apr, Type 2 diabetes mellitus without complication E11.9 ; Type 2 diabetes mellitus with hyperglycemia, without long-term current use of insulin E11.65 ; Idiopathic pulmonary fibrosis J84.112 ; Essential hypertension I10 ; Tobacco use Z72.0 ; 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 ; Hyperlipidemia E78.5 and Chronic obstructive pulmonary disease, unspecified J44.9 [facility] [id number] [place] [address] 35290- 0713 Apr, Dental examination Z01.20 [facility] [id number] [place] [address] 68780- 9980 Apr, [facility] [id number] [place] [address] 10764- 0274 Apr, [facility] [id number] [place] [address] 26601- 5273 Apr, [facility] [id number] [place] [address] 22073- 9022 Apr, [facility] [id number] [place] [address] 73883- 0723 Apr, [facility] [id number] [place] [address] 16078- 9892 Apr, Type 2 diabetes mellitus without complication E11.9 and Essential hypertension I10 [facility] [id number] [place] [address] 10717- 1942 Mar, [facility] [id number] [place] [address] 66713- 2175 Mar, 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 [facility] [id number] [place] [address] 69192- 5750 Mar, Type 2 diabetes mellitus without complication E11.9 ; Essential hypertension I10 and Hyperlipidemia E78.5 [facility] [id number] [place] [address] 13025- 1060 Mar, 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 [facility] [id number] [place] [address] 23486- 3167 Mar, [facility] [id number] [place] [address] 33130- 8096 Mar, Hyperlipidemia E78.5 ; Essential hypertension I10 and Type 2 diabetes mellitus without complication E11.9 [place] [address], [place] [address] 0215 Feb, 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 and Essential hypertension I10 [place] [address] [place] [address] 05957- 0386 Jan, 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 [place] [id number] [place] [address] 23597- 0140 Dec, 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 [place] [id number] [place] [address] 39912- 4074 Dec, [place] [id number] [place] [address] 82886- 5138 November, 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 and Psoriasis L40.9 [place] [address] [place] [address] 02917- 4606 November, Hyperlipidemia E78.5 [place] [address] [place] [address] 62881- 5725 November, Type 2 diabetes mellitus without complication E11.9 [place] [address], [place] [address]- 4305 November, [facility] [address], [place] [address]- 9875 November, 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 ; Hyperlipidemia E78.5 ; Type 2 diabetes mellitus without complication E11.9 ; Idiopathic pulmonary fibrosis J84.112 and Tobacco use Z72.0 [place] [address], [place] [address]- 3850 Oct, Essential hypertension I10 and 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 [place] [address], [place] [address]- 1314 Sep, 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 and Psoriasis L40.9 [place] [id number] [place] [address] 33029- 4877 Jul, 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 [place] [address] 41411- 5855 Jul, Idiopathic pulmonary fibrosis J84.112 [place] [address] [id number] Jul, [address] 70614- 1565 Jul, Idiopathic pulmonary fibrosis J84.[address] 09751- 9024 Jul, Idiopathic pulmonary fibrosis J84.112 and Hypoxia R09.02 [place] [id number] [place] [address] 26670- 0711 Jul, Cough R05 and Idiopathic pulmonary fibrosis J84.112 [place] [id number] [place] [address] 08817- 7115 Apr, Type 2 diabetes mellitus without complication E11.9 ; 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 ; Psoriasis L40.9 ; Hyperlipidemia E78.5 ; Idiopathic pulmonary fibrosis J84.112 and Essential hypertension I10 [place] [address] [place] [address] 49437- 6091 Feb, [place] [id number] [place] [address] 62792- 4003 Feb, [place] [id number] [place] [address] 49959- 6876 Dec, Right ankle gives way M25.371 [place] [id number] [place] [address] 47492- 2880 November, [facility] [id number] [place] [address] 06865- 2640 November, Wrist pain, left M25.532 [place] [id number] [place] [address] 41103- 3620 Sep, Psoriasis L40.9 [facility] [id number] [place] [address] 32673- 5887 Sep, COPD exacerbation J44.1 [facility] [address] 39508- 2918 Aug, [place] [address] 80251- 5993 Aug, 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 and Hyperlipidemia E78.5 [place] [id number] [place] [address] 96616- 0120 Aug, [place] [id number] [place] [address] 22060- 9950 Aug, Psoriasis L40.9 ; 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 and Essential hypertension I10 [place] [id number] [place] [address] 49610- 5119 Jul, [place] [id number] [place] [address] 40193- 9861 Jul, [facility] [id number] [place] [address] 63277- 5845 Jul, Type 2 diabetes mellitus without complication E11.9 ; Hyperlipidemia E78.5 and 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 [place] [id number] [place] [address] 18833- 6724 Jun, [facility] [id number] [place] [address] 88996- 6096 Apr, [facility] [id number] [place] [address] 93628- 0016 Mar, [facility] [address], [place] [address]- 1460 Mar, [facility] [address], [place] [address]- 4476 Mar, Rheumatoid arthritis 714.0 ; Other psoriasis 696.1 and Cellulitis, axillary fold 682.3 [facility] [id number] [place] [address]- 2982 Jan, [facility] [address], [place] [address]- 9629 Dec, [facility] [id number] [place] [address] 81628- 4452 Dec, Other and unspecified hyperlipidemia 272.4 ; Other psoriasis 696.1 and Diabetes mellitus without mention of complication, type II or unspecified type, not stated as uncontrolled 250.00 [facility] [address] 5658 Dec, [facility] [address], [place] [address]- 7647 November, [facility] [address], [place] [address]- 5075 Oct, [facility] [address], [place] [address]- 6560 Oct, [facility] [address], [place] [address]- 8482 Sep, [facility] [address], [place] [address]- 5287 Sep, [facility] [address], [place] [address]- 5827 Sep, [facility] [address] [id number], [place] [address]- 7366 Sep, [facility] [id number] [place] [address]- 1559 13 Sep, 2014 [facility] [address] [id number] [place] [address]- 0625 13 Sep, 2014 [facility] [place] [facility] [address] [id number] [place] [address]- 7573 13 Sep, 2014 [facility] [address] [id number] [place] [address]- 9481 13 Sep, 2014 [facility] [place] [facility] [address] [id number] [place] [address]- 4455 03 Sep, 2014 [facility] [address] [id number] [place] [address]- 8037 03 Sep, 2014 [facility] [address] [id number] [place] [address]- 0473 19 Jul, 2014 [facility] [address] [id number] [place] [address]- 4348 19 Jul, 2014 [facility] [address] [id number] [place] [address]- 0662 16 Jul, 2014 [facility] [address] [id number] [place] [address]- 0040 16 Jul, 2014 [facility] [address] [id number] [place] [address]- 3423 15 Jul, 2014 [facility] [address] [id number] [place] [address]- 2773 15 Jul, 2014 [facility] [place] [facility] [address] [id number] [place] [address]- 0180 13 Jul, 2014 [facility] [place] [facility] [address] [id number] [place] [address]- 0898 Jul, [facility] [place] [facility] [address] [id number] [place] [address]- 9237 Jun, [facility] [place] [facility] [address] [id number] [place] [address]- 9907 Jun, [facility] [place] [facility] [address] [id number] [place] [address]- 6420 Jun, [facility] [place] [facility] [address] [id number] [place] [address]- 8768 Jun, [facility] [place] [facility] [address] [id number] [place] [address]- 4609 Jun, [facility] [place] [facility] [address] [id number] [place] [address]- 3333 Jun, [facility] [place] [facility] [address] [id number] [place] [address]- 4978 Apr, [facility] [place] [facility] [address] [id number] [place] [address]- 4155 Apr, [facility] [place] [facility] [address] [id number] [place] [address]- 1478 Mar, [facility] [place] [facility] [address] [id number] [place] [address]- 6601 Mar, [facility] [place] [facility] [address] [id number] [place] [address]- 2855 Feb, [facility] [place] [facility] [address] [id number] [place] [address]- 9887 Feb, [facility] [place] [facility] [address] [id number] [place] [address]- 5095 Jan, [facility] [place] [facility] [address] [id number] [place] [address]- 9840 Jan, [facility] [place] [facility] [address] [id number] [place] [address]- 2547 Jan, [facility] [place] [facility] [address] [id number] [place] [address]- 6011 Jan, [facility] [place] [facility] [address] [id number] [place] [address]- 2510 Jan, [facility] [place] [facility] [address] [id number], [place] [address]- 3549 Dec, [facility] [place] [facility] [address] [id number] [place] [address]- 4850 Dec, [facility] [place] [facility] [address] [id number] [place] [address]- 2869 Dec, [facility] [place] [facility] [address] [id number] [place] [address]- 3356 Dec, [facility] [place] [facility] [address] [id number] [place] [address]- 6851 November, [facility] [place] [facility] [address] [id number] [place] [address]- 7697 November, [facility] [place] [facility] [address] [id number] [place] [address]- 1385 Oct, [facility] [place] [facility] [address] [facility] [id number] [place] [address]- 3604 Oct, [facility] [place] [facility] [address] [id number] [place] [address]- 0822 Sep, [facility] [place] [facility] [address] [id number] [place] [address]- 1693 Sep, [facility] [place] [facility] [address] [facility] [id number] [place] [address]- 6701 Sep, [facility] [place] [facility] [address] [id number] [place] [address]- 0085 Sep, [facility] [place] [facility] [address] [id number] [place] [address]- 4843 Aug, [facility] [place] [facility] [address] [id number] [place] 2962 Aug, [facility] [place] [facility] [address] [id number] [place] 9593 Aug, [facility] [place] [facility] [address] [facility] [id number] [place] [address]- 4995 Aug, [facility] [place] [facility] [address] [id number] [place] [address]- 3659 Aug, [facility] [place] [facility] [address] [id number] [place] [address]- 4389 Aug, [facility] [place] [facility] [address] [id number] [place] [address]- 3435 Jul, [facility] [place] [facility] [address] [id number] [place] [address]- 6665 Jul, [facility] [address] [id number] [place] [address]- 6737 Jul, [facility] [place] [facility] [address] [id number] [place] [address]- 7134 Jul, [facility] [address] [id number] [place] [address]- 5791 Jul, [facility] [address] [id number] [place] [address]- 3850 Jul, [facility] [place] [facility] [address] [id number] [place] [address]- 4587 Jul, [facility] [address] [id number] [place] [address]- 7714 Jul, [facility] [place] [facility] [address] [id number] [place] [address]- 3502 Jun, [facility] [place] [facility] [address] [id number] [place] [address]- 8758 Jun, [facility] [place] [facility] [address] [id number] [place] [address]- 2168 Jun, [facility] [place] [facility] [address] [id number] [place] [address]- 7411 Jun, [facility] [place] [facility] [address] [id number] [place] [address]- 8353 Jun, [facility] [place] [facility] [address] [id number] [place] [address]- 9948 Jun, [facility] [place] [facility] [address] [id number] [place] [address]- 0430 May, [facility] [place] [facility] [address] [id number] [place] 8672 May, [facility] [place] [facility] [address] [id number] [place] [address]- 0720 May, [facility] [place] [facility] [address] [id number] [place] [address]- 8934 May, [facility] [place] [facility] [address] [id number] [place] [address]- 5957 Apr, [facility] [place] [facility] [address] [id number] [place] [address]- 3928 Apr, [facility] [place] [facility] [address] [id number] [place] [address]- 6031 08 Apr, 2013 [facility] [place] [facility] [address] [id number] [place] [address]- 5587 07 Apr, 2013 [facility] [place] [facility] [address] [id number] [place] [address]- 7385 25 Mar, 2013 [facility] [place] [facility] [address] [id number] [place] [address]- 8262 23 Mar, 2013 [facility] [place] [facility] [address] [id number], [place] [address]- 5104 16 Mar, 2013 [facility] [place] [facility] [address] [id number] [place] [address]- 3444 12 Mar, 2013 [facility] [place] [facility] [address] [id number] [place] [address]- 9558 09 Mar, 2013 [facility] [place] [facility] [address] [id number] [place] [address]- 8212 04 Mar, 2013 [facility] [place] [facility] [address] [id number] [place] [address]- 2193 Feb, [facility] [place] [facility] [address] [id number] [place] [address]- 0570 Feb, [facility] [address] [id number] [place] [address]- 6456 Feb, [facility] [address] [id number] [place] [address]- 1346 Feb, [facility] [address] [id number] [place] [address]- 6978 Jan, [facility] [address] [id number] [place] [address]- 2635 Dec, [facility] [address] [id number] [place] [address]- 3819 November, [facility] [address] [id number] [place] [address]- 9096 Sep, [facility] [address] [id number] [place] [address]- 4270 Aug, [facility] [address] [id number] [place] [address]- 9135 Aug, [facility] [address] [id number] [place] [address]- 5142 Jul, [facility] [address] [id number] [place] [address]- 1546 Jul, [facility] [address] [id number] [place] [address]- 9378 Jun, [facility] [address] [id number] [place] [address]- 2950 Jun, [facility] [place] [facility] [address] [id number] [place] [address]- 7725 Jun, [facility] [place] [facility] [address] [id number] [place] [address]- 0666 Jun, [facility] [address] [id number] [place] [address]- 8075 Jun, [facility] [place] [facility] [address] [id number] [place] [address]- 1684 06 Jun, 2012 [facility] [place] [facility] [address] [id number] [place] [address] 30 May, 2012 [facility] [place] [facility] [address] [id number] [place] [address] 29 May, 2012 [facility] [place] [facility] [address] [id number] [place] [address] 28 May, 2012 [facility] [place] [facility] [address] [id number] [place] [address] 28 May, 2012 [facility] [place] [facility] [address] [id number] [place] [address] 27 May, 2012 [facility] [place] [facility] [address] [id number] [place] [address] 27 May, 2012 [facility] [place] [facility] [address] [id number] [place] [address] 15 May, 2012 [facility] [place] [facility] [address] [id number] [place] [address] 15 May, 2012 [facility] [place] [facility] [address] [id number] [place] [address] 14 May, 2012 [facility] [place] [facility] [address] [id number] [place] [address] 14 May, 2012 [facility] [place] [facility] [address] [id number], [place] [address] 12 May, 2012 [facility] [place] [facility] [address] [id number] [place] [address] 12 May, 2012 [facility] [place] [facility] [address] [id number], [place] [address] 10 May, 2012 [facility] [place] [facility] [address] [id number] [place] [address] 10 May, 2012 [facility] [place] [facility] [address] [id number] [place] [address] May, [facility] [place] [facility] [address] [id number] [place] [address] Apr, [facility] [place] [facility] [address] [id number] [place] [address] Apr, [facility] [place] [facility] [address] [id number] [place] [address] Apr, [facility] [place] [facility] [address] [id number] [place] [address] Apr, [facility] [place] [facility] [address] [id number] [place] [address] Apr, [facility] [place] [facility] [address] [id number] [place] [address] Apr, [facility] [place] [facility] [address] [id number] [place] [address] Apr, [facility] [place] [facility] [address] [id number] [place] [address] Apr, [facility] [place] [facility] [address] [id number] [place] [address] Apr, [facility] [place] [facility] [address] [facility] [id number] [place] [address] Apr, [facility] [place] [facility] [address] [id number] [place] [address] 25 Mar, 2012 [facility] [place] [facility] [address] [id number] [place] [address] 24 Mar, 2012 [facility] [place] [facility] [address] [id number] [place] [address] 14 Mar, 2012 [facility] [place] [facility] [address] [id number] [place] [address] 04 Mar, 2012 [facility] [place] [facility] [address] [facility] [id number] [place] [address] Feb, [facility] [place] [facility] [id number], [place] [address] Feb, [facility] [id number], [place] [address] Feb, [facility] [id number], [place] [address] Feb, [facility] [id number], [place] [address] Feb, [facility] [id number], [place] [address] November, [facility] [id number] [place] [address] Aug, [facility] [id number] [place] [address] May, [facility] [id number], [place] [address] May, [facility] [id number], [place] [address] Apr, [facility] [id number], [place] [address] Mar, IMMUNIZATIONS No Known Immunizations SOCIAL HISTORY Never Assessed REASON FOR VISIT Returned call PLAN OF CARE VITAL SIGNS MEDICATIONS Unknown Medications RESULTS No Results PROCEDURES No Known procedures [...] Hospitalization History Resp distress with hypoxia, pulmonary fibrosis-[facility] 08/03/16 Hospitalization History Shortness of breath 04/2017
--- OUTSIDE RECORDS SUMMARY | 2017-12-21 17:03 | XMS REPORT ---
Author Author GENEVIEVE JOSE F Organization [facility] Address [address] [place] [address] Care Team Providers Care Sonoscope Operator Name Role Phone GENEVIEVE JOSE F Unavailable PROBLEMS Type Condition ICD9-CM Code SIX00-HL Code Onset Dates Condition Status SNOMED Code Problem Hyperlipidemia E78.5 Active 12241522 Problem Vision loss, left eye H54.62 Active 18909754 Problem Psoriasis L40.9 Active 5257741 Problem Lactic acidosis E87.2 Active 05244277 Problem Renal cyst, right N28.1 Active 56438314 Problem Idiopathic pulmonary fibrosis J84.112 Active 445343857 Problem Chronic obstructive pulmonary disease, unspecified J44.9 Active 27202155 Problem Type 2 diabetes mellitus with hyperglycemia, without long-term current use of insulin E11.65 Active 74346968 Problem Tobacco use Z72.0 Active 652021228 Problem Type 2 diabetes mellitus without complication E11.9 Active 70460006 Problem 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 Active 524783717 Problem Essential hypertension I10 Active 00090796 Problem Hematochezia K92.1 Active [id number] ALLERGIES No Information SOCIAL HISTORY Never Assessed PLAN OF CARE VITAL SIGNS MEDICATIONS Medication Instructions Dosage Frequency Start Date End Date Duration Status Lipitor 40 mg Orally Once a day 1 tablet 24h 90 days Active GlipiZIDE 5 mg Orally twice a day 2 tablets 12h 90 days Active RESULTS No Results PROCEDURES [...] Hospitalization History Resp distress with hypoxia, pulmonary fibrosis-[facility] 08/03/16 Hospitalization History Shortness of breath 04/2017
--- OUTSIDE RECORDS SUMMARY | 2017-12-21 17:03 | XMS REPORT ---
Author Author GENEVIEVE JOSE F [facility] Address [address] [place] [address] Care Team Providers Care Mohs Surgeon/General Dermatologist Name Role Phone JOSE F VALLEJO Unavailable PROBLEMS Type Condition ICD9-CM Code SFF12-MA Code Onset Dates Condition Status SNOMED Code Problem Psoriasis L40.9 Active 6895289 Problem 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 Active 978979723 Problem Vision loss, left eye H54.62 Active 04236149 Problem Primary insomnia F51.01 Active 4736357 Problem Other elevated white blood cell (WBC) count D72.828 Active 624814284 Problem Essential hypertension I10 Active 75108991 Problem Hematochezia K92.1 Active 999433446 Problem Type 2 diabetes mellitus with hyperglycemia, without long-term current use of insulin E11.65 Active 08302613 Problem Tobacco use Z72.0 Active 912677048 Problem Renal cyst, right N28.1 Active 53216285 Problem Idiopathic pulmonary fibrosis J84.112 Active 459076865 Problem Chronic obstructive pulmonary disease, unspecified J44.9 Active 22416363 Problem Lactic acidosis E87.2 Active 15208660 Problem Hyperlipidemia E78.5 Active 11604609 ALLERGIES Substance Reaction Event Type Date Status Naprosyn Unknown Drug Allergy Apr, Active Celebrex Unknown Drug Allergy Apr, Active ENCOUNTERS Encounter Location Date Diagnosis [facility] [address] [facility] [id number], [place] [address] November, 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 [facility] [address] [facility] [id number], [place] [address] November, 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 [facility] [address] [facility] [id number], [place] [address] Oct, 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 [place] [id number] [place] [address] 78713- 0368 Oct, [place] [id number] [place] [address] 45424- 1395 Oct, 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 [place] [address] [address]- [address] Oct, 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 ; Type 2 diabetes mellitus with hyperglycemia, without long-term current use of insulin E11.65 ; Hyperlipidemia E78.5 and Other elevated white blood cell (WBC) count D72.828 [place] [id number] [place] [address] 55336- 1687 Oct, Chronic obstructive pulmonary disease, unspecified J44.9 [place] [address] [address]- [address]329 Oct, 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 [place] [id number] [place] [address] 23404- 9823 Oct, Type 2 diabetes mellitus with hyperglycemia, without long- term current use of insulin E11.65 [place] [id number] [place] [address] 93738- 2832 Sep, [place] [id number] [place] [address] 98849- 9240 Sep, 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 ; Visit for TB skin test Z11.1 and Psoriasis L40.9 [place] [id number] [place] [address] 27278- 4263 Sep, Type 2 diabetes mellitus with hyperglycemia, without long- term current use of insulin E11.65 ; 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 ; Hyperlipidemia E78.5 ; Essential hypertension I10 ; Other elevated white blood cell (WBC) count D72.828 ; Primary insomnia F51.01 and Tobacco use Z72.0 [place] [id number] [place] [address] 90541- 3648 Sep, [place] [id number] [place] [address] 02112- 5921 Aug, Type 2 diabetes mellitus with hyperglycemia, without long- term current use of insulin E11.65 and Hyperlipidemia E78.5 [place] [address] [address]- 2586 Jul, [place] [id number] [place] [address] 09441- 3554 Jul, 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 [place] [address] 29943- 0776 Jul, 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 [place] [address] 34355- 1449 Jun, Essential hypertension I10 and Hyperlipidemia E78.5 [place] [id number] [place] [address] 36544- 8444 Jun, Chronic obstructive pulmonary disease, unspecified J44.9 [place] [id number] [place] [address] 20470- 5747 Jun, [place] [id number] [place] [address] 02198- 2734 May, Type 2 diabetes mellitus without complication E11.9 ; 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 ; Psoriasis L40.9 and Essential hypertension I10 [facility] [id number] [place] [address] [id number] May, Dental examination Z01.20 and Dental caries K02.9 [place] [id number] [place] [address] 68417- 3264 Apr, Type 2 diabetes mellitus without complication E11.9 ; Type 2 diabetes mellitus with hyperglycemia, without long-term current use of insulin E11.65 ; Idiopathic pulmonary fibrosis J84.112 ; Essential hypertension I10 ; Tobacco use Z72.0 ; 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 ; Hyperlipidemia E78.5 and Chronic obstructive pulmonary disease, unspecified J44.9 [facility] [address] [address] Apr, Dental examination Z01.20 [facility] [id number] [place] [address] 41467- 5800 Apr, [facility] [id number] [place] [address] 81529- 9798 Apr, [facility] [id number] [place] [address] 90851- 4297 Apr, [facility] [id number] [place] [address] 72184- 4238 Apr, [facility] [id number] [place] [address] 28005- 0715 Apr, [facility] [id number] [place] [address] 61026- 8377 Apr, Type 2 diabetes mellitus without complication E11.9 and Essential hypertension I10 [facility] [id number] [place] [address] 80575- 4750 Mar, [facility] [id number] [place] [address] 91078- 1023 Mar, 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 [facility] [address] [place] [address] 75613- 4201 Mar, Type 2 diabetes mellitus without complication E11.9 ; Essential hypertension I10 and Hyperlipidemia E78.5 [facility] [address] [place] [address] 68039- 7195 Mar, 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 [facility] [id number] [place] [address] 91705- 2441 Mar, [facility] [address] [address]- 5535 Mar, Hyperlipidemia E78.5 ; Essential hypertension I10 and Type 2 diabetes mellitus without complication E11.9 [facility] [address], [place] [address]- 2683 Feb, 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 and Essential hypertension I10 [place] [address] [place] [address] 50939- 9290 Jan, 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 [place] [id number] [place] [address] 937239- 9923 Dec, 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 [place] [id number] [place] [address] 78009- 4183 Dec, [place] [id number] [place] [address] 64902- 3813 November, 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 and Psoriasis L40.9 [place] [id number] [place] [address] 06803- 3423 November, Hyperlipidemia E78.5 [place] [address] [address]- 7456 November, Type 2 diabetes mellitus without complication E11.9 [place] [address], [place] [address]- [address] November, [place] [address] [address]- 6200 November, 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 ; Hyperlipidemia E78.5 ; Type 2 diabetes mellitus without complication E11.9 ; Idiopathic pulmonary fibrosis J84.112 and Tobacco use Z72.0 [place] [address] [place] [address] 39323- 4663 Oct, Essential hypertension I10 and 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 [place] [address] [place] [address] 53562- 4658 Sep, 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 and Psoriasis L40.9 [place] [id number] [place] [address] 30170- 0294 Jul, 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 [place] [id number] [place] [address] 50230- 7017 Jul, Idiopathic pulmonary fibrosis J84.112 [place] [address] [id number] Jul, [place] [id number] [place] [address] 89871- 0286 Jul, Idiopathic pulmonary fibrosis J84.112 [place] [id number] [place] [address] 68352- 8225 Jul, Idiopathic pulmonary fibrosis J84.112 and Hypoxia R09.02 [place] [id number] [place] [address] 64173- 4236 Jul, Cough R05 and Idiopathic pulmonary fibrosis J84.112 [place] [id number] [place] [address] 07239- 4514 Apr, Type 2 diabetes mellitus without complication E11.9 ; 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 ; Psoriasis L40.9 ; Hyperlipidemia E78.5 ; Idiopathic pulmonary fibrosis J84.112 and Essential hypertension I10 [place] [address] [place] [address] 02512- 1871 Feb, [place] [id number] [place] [address] 57374- 4870 Feb, [place] [id number] [place] [address] 39683- 4878 Dec, Right ankle gives way M25.371 [place] [id number] [address]- 7784 November, [facility] [id number] [place] [address] 63196- 8109 November, Wrist pain, left M25.532 [facility] [id number] [address]- 8420 Sep, Psoriasis L40.9 [facility] [id number] [place] [address] 29683- 1108 Sep, COPD exacerbation J44.1 [facility] [id number] [place] [address] 61191- 9767 Aug, [facility] [id number] [place] [address] 10882- 3516 Aug, 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 and Hyperlipidemia E78.5 [place] [id number] [place] [address] 42220- 3657 Aug, [facility] [id number] [place] [address] 08861- 0572 Aug, Psoriasis L40.9 ; 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 and Essential hypertension I10 [facility] [address], [place] [address]- 2784 Jul, [facility] [id number] [place] [address] 29582- 9590 Jul, [facility] [address] [place] [address] 46216- 3483 Jul, Type 2 diabetes mellitus without complication E11.9 ; Hyperlipidemia E78.5 and 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 [facility] [address] [address]- 9720 Jun, [facility] [id number] [place] [address] 92886- 3257 Apr, [facility] [address], [place] [address]- 1491 Mar, [facility] [id number] [place] [address] 138639- 6796 Mar, [facility] [id number] [place] [address] 69706- 5072 Mar, Rheumatoid arthritis 714.0 ; Other psoriasis 696.1 and Cellulitis, axillary fold 682.3 [facility] [id number] [place] [address] 37219- 8897 Jan, [facility] [id number] [place] [address] 39702- 0726 Dec, [facility] [id number] [place] [address] 11301- 4189 Dec, Other and unspecified hyperlipidemia 272.4 ; Other psoriasis 696.1 and Diabetes mellitus without mention of complication, type II or unspecified type, not stated as uncontrolled 250.00 [facility] [address], [place] [address]- 9876 Dec, [facility] [id number] [place] [address] 71117- 2381 November, [facility] [address], [place] [address]- 5882 Oct, [facility] [id number] [place] [address] 56716- 2205 Oct, [facility] [address]- 0106 Sep, [facility] [id number] [place] [address] 980445- 9937 Sep, [facility] [address]- 7110 Sep, [facility] [id number] [place] [address] 74213- 7705 20 Sep, 2014 [facility] [place] [facility] [address] [id number] [place] [address]- 4817 13 Sep, 2014 [facility] [place] [facility] [address] [id number] [place] [address]- 0266 13 Sep, 2014 [facility] [place] [facility] [address] [id number] [place] [address]- 7626 13 Sep, 2014 [facility] [place] [facility] [address] [id number] [place] [address]- 8761 13 Sep, 2014 [facility] [place] [facility] [address] [id number] [place] [address]- 9357 Sep, [facility] [place] [facility] [address] [id number] [place] [address]- 5661 Sep, [facility] [place] [facility] [address] [id number] [place] [address]- 0972 19 Jul, 2014 [facility] [place] [facility] [address] [id number] [place] [address]- 5177 19 Jul, 2014 [facility] [place] [facility] [address] [id number] [place] [address]- 0243 16 Jul, 2014 [facility] [place] [facility] [address] [id number] [place] [address]- 5564 16 Jul, 2014 [facility] [place] [facility] [address] [id number] [place] [address]- 1603 15 Jul, 2014 [facility] [place] [facility] [address] [id number] [place] [address]- 2908 15 Jul, 2014 [facility] [place] [facility] [address] [id number] [place] [address]- 1499 13 Jul, 2014 [facility] [place] [facility] [address] [id number] [place] [address]- 7217 13 Jul, 2014 [facility] [place] [facility] [address] [id number] [place] [address]- 3957 Jun, [facility] [place] [facility] [address] [id number] [place] [address]- 9834 Jun, [facility] [place] [facility] [address] [id number] [place] [address]- 0407 Jun, [facility] [place] [facility] [address] [id number] [place] [address]- 1316 Jun, [facility] [place] [facility] [address] [id number] [place] [address]- 0445 Jun, [facility] [place] [facility] [address] [id number] [place] [address]- 9298 Jun, [facility] [place] [facility] [address] [id number] [place] [address]- 5299 Apr, [facility] [place] [facility] [address] [id number] [place] [address]- 9414 Apr, [facility] [place] [facility] [address] [id number] [place] [address]- 6162 Mar, [facility] [place] [facility] [address] [id number] [place] [address]- 4830 Mar, [facility] [place] [facility] [address] [id number] [place] [address]- 7950 Feb, [facility] [place] [facility] [address] [id number] [place] [address]- 2280 Feb, [facility] [place] [facility] [address] [id number] [place] [address]- 4463 Jan, [facility] [place] [facility] [address] [id number] [place] [address]- 6447 Jan, [facility] [place] [facility] [address] [id number] [place] [address]- 2583 Jan, [facility] [place] [facility] [address] [id number] [place] [address]- 8976 Jan, [facility] [place] [facility] [address] [id number] [place] [address]- 1366 Jan, [facility] [place] [facility] [address] [id number] [place] [address]- 9182 Dec, [facility] [place] [facility] [address] [id number] [place] [address]- 0151 Dec, [facility] [place] [facility] [address] [id number] [place] [address]- 9836 Dec, [facility] [place] [facility] [address] [id number] [place] [address]- 3340 Dec, [facility] [place] [facility] [address] [id number] [place] [address]- 7539 November, [facility] [place] [facility] [address] [id number] [place] [address]- 9466 November, [facility] [place] [facility] [address] [id number] [place] [address]- 3647 Oct, [facility] [place] [facility] [address] [id number] [place] [address]- 1456 Oct, [facility] [place] [facility] [address] [id number] [place] [address]- 3433 Sep, [facility] [place] [facility] [address] [id number] [place] [address]- 9164 Sep, [facility] [place] [facility] [address] [id number] [place] [address]- 2562 Sep, [facility] [place] [facility] [address] [id number] [place] [address]- 2007 Sep, [facility] [place] [facility] [address] [id number] [place] [address]- 5406 Aug, [facility] [place] [facility] [address] [id number] [place] [address]- 9813 Aug, [facility] [place] [facility] [address] [id number] [place] [address]- 9228 Aug, [facility] [place] [facility] [address] [id number] [place] [address]- 2563 17 Aug, 2013 [facility] [address] [id number] [place] [address]- 8795 Aug, [facility] [address] [id number] [place] [address]- 7026 Aug, [facility] [address] [id number] [place] [address]- 7882 Jul, [facility] [address] [id number] [place] [address]- 2035 Jul, [facility] [address] [id number] [place] [address]- 0171 Jul, [facility] [address] [id number] [place] [address]- 0498 Jul, [facility] [address] [id number] [place] [address]- 6194 Jul, [facility] [address] [id number] [place] [address]- 7389 Jul, [facility] [address] [id number] [place] [address]- 7576 Jul, [facility] [address] [id number] [place] [address]- 5517 Jul, [facility] [address] [id number] [place] [address]- 9582 Jun, [facility] [address] [id number] [place] [address]- 1471 Jun, [facility] [place] [facility] [address] [id number] [place] [address]- 1712 Jun, [facility] [place] [facility] [address] [id number] [place] [address]- 2518 Jun, [facility] [address] [id number] [place] [address]- 0263 Jun, [facility] [place] [facility] [address] [id number] [place] 6118 Jun, [facility] [place] [facility] [address] [id number] [place] [address]- 4065 May, [facility] [place] [facility] [address] [id number] [place] [address]- 5341 May, [facility] [place] [facility] [address] [id number] [place] [address]- 5670 May, [facility] [place] [facility] [address] [id number] [place] [address]- 7215 May, [facility] [place] [facility] [address] [id number] [place] [address]- 8948 Apr, [facility] [place] [facility] [address] [id number] [place] [address]- 3582 Apr, [facility] [place] [facility] [address] [id number] [place] [address]- 7545 08 Apr, 2013 [facility] [place] [facility] [address] [id number] [place] [address]- 1801 07 Apr, 2013 [facility] [place] [facility] [address] [id number] [address]- 1528 25 Mar, 2013 [facility] [place] [facility] [address] [id number] [place] [address]- 2282 23 Mar, 2013 [facility] [place] [facility] [address] [id number] [address]- 0875 16 Sep, 2012 [facility] [place] [facility] [address] [id number] [place] [address]- 7336 12 Sep2012 [facility] [place] [facility] [address] [id number] [place] 6219 09 Mar, 2013 [facility] [place] [facility] [address] [id number], [place] [address] 04 Sep2012 [facility] [place] [facility] [address] [id number], [place] [address] Feb, [facility] [address] [id number] [place] [address] Feb, [facility] [address] [id number] [place] [address] Feb, [facility] [address] [id number] [place] [address] Feb, [facility] [address] [id number] [place] [address] Jan, [facility] [address] [id number] [place] [address] Dec, [facility] [address] [id number] [place] [address] November, [facility] [address] [id number] [place] [address] Sep, [facility] [address] [id number] [place] [address] Aug, [facility] [address] [id number] [place] [address] Aug, [facility] [address] [id number] [place] [address] Jul, [facility] [address] [id number] [place] [address] Jul, [facility] [place] [facility] [address] [id number] [place] [address] Jun, [facility] [place] [facility] [address] [id number] [place] [address] Jun, [facility] [place] [facility] [address] [id number] [place] [address] Jun, [facility] [place] [facility] [address] [id number] [place] [address] Jun, [facility] [place] [facility] [address] [id number] [place] [address] 06 Jun, 2012 [facility] [place] [facility] [address] [id number] [place] [address] 06 Jun, 2012 [facility] [place] [facility] [address] [id number] [place] [address] 30 May, 2012 [facility] [place] [facility] [address] [id number] [place] [address] 29 May, 2012 [facility] [place] [facility] [address] [id number] [place] [address] 28 May, 2012 [facility] [place] [facility] [address] [id number] [place] [address] 28 May, 2012 [facility] [place] [facility] [address] [id number] [place] [address] 27 May, 2012 [facility] [place] [facility] [address] [id number] [place] [address] 27 May, 2012 [facility] [place] [facility] [address] [id number] [place] [address] 15 May, 2012 [facility] [place] [facility] [address] [id number] [place] [address] 15 May, 2012 [facility] [place] [facility] [address] [id number] [place] [address] 14 May, 2012 [facility] [place] [facility] [address] [id number] [place] [address] 14 May, 2012 [facility] [place] [facility] [address] [id number] [place] [address] 12 May, 2012 [facility] [place] [facility] [address] [id number] [place] [address] 12 May, 2012 [facility] [place] [facility] [address] [id number] [place] [address] 10 May, 2012 [facility] [place] [facility] [address] [id number] [place] [address] May, [facility] [place] [facility] [address] [id number] [place] [address] May, [facility] [place] [facility] [address] [id number] [place] [address] Apr, [facility] [place] [facility] [address] [id number] [place] [address] Apr, [facility] [place] [facility] [address] [id number] [place] [address] Apr, [facility] [place] [facility] [address] [id number] [place] [address] Apr, [facility] [place] [facility] [address] [id number] [place] [address] Apr, [facility] [place] [facility] [address] [id number] [place] [address] Apr, [facility] [place] [facility] [address] [id number] [place] [address] Apr, [facility] [place] [facility] [address] [id number] [place] [address] Apr, [facility] [place] [facility] [address] [id number] [place] [address] Apr, [facility] [place] [facility] [address] [id number], [place] [address] Apr, [facility] [place] [facility] [address] [id number] [address] Mar, [facility] [place] [facility] [address] [id number] [place] [address] 24 Mar, 2012 [facility] [place] [facility] [address] [facility] [id number], [place] [address] 14 Mar, 2012 [facility] [place] [facility] [address] [id number], [place] [address] 04 Mar, 2012 [facility] [place] [facility] [address] [id number], [place] [address] Feb, [facility] [id number] [address] Feb, [facility] [id number], [place] [address] Feb, [facility] [id number], [place] [address] Feb, [facility] [id number], [place] [address] Feb, [facility] [id number] [place] [address] November, [facility] [id number] [place] [address] Aug, [facility] [id number] [place] [address] May, [facility] [id number], [place] [address] May, [facility] [id number], [place] [address] Apr, [facility] [id number], [place] [address] Mar, IMMUNIZATIONS No Known Immunizations SOCIAL HISTORY Never Assessed REASON FOR VISIT diabetes and hospital f/u -AnisaN, -wanting to quit smoking PLAN OF CARE Activity Details Follow Up 3 Months Reason:DMII VITAL SIGNS Height 67 in 2017-05-30 Weight 213.3 lbs 2017-05-30 Temperature 98.1 degrees Fahrenheit 2017-05-30 Heart Rate 88 bpm 2017-05-30 Respiratory Rate 24 2017-05-30 Oximetry w/ oxygen @ 2L:98 % 2017-05-30 BMI 33.40 kg/m2 2017-05-30 Blood pressure systolic 122 mmHg 2017-05-30 Blood pressure diastolic 80 mmHg 2017-05-30 MEDICATIONS Medication Instructions Dosage Frequency Start Date End Date Duration Status Methotrexate 2.5 MG Orally once weekly 6 tabs November, Active Piroxicam 20 mg Orally Once a day 1 capsule with food 24h Active Folic Acid 1 MG Orally Once a day 1 tablet 24h November, May, 90 days Active Clobetasol Propionate 0.05 % Externally Twice a day as needed for psoriasis 1 application to affected area Dec, Active Hydroxychloroquine Sulfate 200 mg Orally Once a day 2 tablet with food or milk 24h 90 days Active Dapagliflozin Propanediol 5 mg Orally Once a day 1 tablet 24h Apr, May, 28 days Active Lipitor 40 mg Orally Once a day 1 tablet 24h Active Glucocard Expression Monitor w/Device as directed Apr, Active Hydrocodone-Acetaminophen 5-325 MG Orally every 6 hrs 1 tablet as needed 6h Jan, 28 days Active Albuterol Sulfate (2.5 MG/3ML) 0.083% Inhalation every 6 hrs 3 ml as needed 6h Mar, Active GlipiZIDE 10 MG Orally twice a day 1 table 12h Active Glucocard Expression Test - In Vitro Once a day as directed 24h Apr, Active Advair Diskus 250-50 MCG/DOSE Inhalation Twice a day, approximately 12 hrs apart 1 puff Active Lisinopril 20 mg Orally Once a day 1 tablet 24h 10 Aug, 2015 Active RESULTS Name Result Date Reference Range A1C (IN HOUSE) 2017-05-30 A1C IN HOUSE 8.8 4.3 - 5.6 % Previous A1c 7.0 Lot [id number] Exp date 02/15 PROCEDURES Procedure Date Ordered Result Body Site FOOT EXAM PERFORMED 2017-05-30 N/A MEASURE BLOOD OXYGEN LEVEL May 30, 2017 GLYCATED HEMOGLOBIN TEST May 30, 2017 FOOT EXAM PERFORMED May 30, 2017 INSTRUCTIONS MEDICATIONS ADMINISTERED No Known Medications MEDICAL [...] Hospitalization History Resp distress with hypoxia, pulmonary fibrosis-[facility] 08/03/16 Hospitalization History Shortness of breath 04/2017
--- OUTSIDE RECORDS SUMMARY | 2017-12-21 17:03 | XMS REPORT ---
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 Name Role Phone GENEVIEVESANTOSH LEMAHANY Unavailable PROBLEMS Type Condition ICD9-CM Code AVK45-NV Code Onset Dates Condition Status SNOMED Code Problem Psoriasis L40.9 Active 2331216 Problem 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 Active 702274308 Problem Vision loss, left eye H54.62 Active 42441486 Problem Primary insomnia F51.01 Active 5787890 Problem Other elevated white blood cell (WBC) count D72.828 Active 353283801 Problem Essential hypertension I10 Active 84000297 Problem Hematochezia K92.1 Active 471051310 Problem Type 2 diabetes mellitus with hyperglycemia, without long-term current use of insulin E11.65 Active 40352312 Problem Tobacco use Z72.0 Active 308963648 Problem Renal cyst, right N28.1 Active 80233972 Problem Idiopathic pulmonary fibrosis J84.112 Active 172818634 Problem Chronic obstructive pulmonary disease, unspecified J44.9 Active 55259447 Problem Lactic acidosis E87.2 Active 91518460 Problem Hyperlipidemia E78.5 Active 07646639 ALLERGIES No Information ENCOUNTERS Encounter Location Date Diagnosis [facility] [id number] [address] November, [facility] [id number] [address] Oct, 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 [facility] [id number] [place] [address] 67590- 4147 Oct, [facility] [id number], [place] [address] 7[address] Oct, 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 [place] [id number] [place] [address] 29497- 1600 Oct, 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 ; Type 2 diabetes mellitus with hyperglycemia, without long-term current use of insulin E11.65 ; Hyperlipidemia E78.5 and Other elevated white blood cell (WBC) count D72.828 [place] [address] [address]- [address] Oct, Chronic obstructive pulmonary disease, unspecified J44.9 [place] [address] 76874- 8620 Oct, 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 [place] [address] 02[address]- 8246 Oct, Type 2 diabetes mellitus with hyperglycemia, without long- term current use of insulin E11.65 [place] [address] [address]857- 8805 Sep, [place] [address] 93165- 9820 Sep, Visit for TB skin test Z11.1 ; 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 and Psoriasis L40.9 [place] [id number] [place] [address] 64345- 4034 Sep, Type 2 diabetes mellitus with hyperglycemia, without long- term current use of insulin E11.65 ; 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 ; Hyperlipidemia E78.5 ; Essential hypertension I10 ; Other elevated white blood cell (WBC) count D72.828 ; Primary insomnia F51.01 and Tobacco use Z72.0 [place] [address] [address]77- 6666 Sep, [place] [address] 78671- 7953 Aug, Type 2 diabetes mellitus with hyperglycemia, without long- term current use of insulin E11.65 and Hyperlipidemia E78.5 [facility] [address], [place] [address] Jul, [facility] [address] [place] [address] 99966- 5731 Jul, 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 [place] [id number] [place] [address] 20779- 5417 Jul, 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 [place] [id number] [place] [address] 60988- 1818 Jun, Essential hypertension I10 and Hyperlipidemia E78.5 [place] [id number] [place] [address] 84714- 7576 Jun, Chronic obstructive pulmonary disease, unspecified J44.9 [place] [id number] [place] [address] 45976- 3801 Jun, [place] [address] [place] [address] 53372- 8718 May, Type 2 diabetes mellitus without complication E11.9 ; 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 ; Psoriasis L40.9 and Essential hypertension I10 [facility] [address] [place] [address] [id number] May, Dental examination Z01.20 and Dental caries K02.9 [place] [address] [place] [address] 57305- 4265 Apr, Type 2 diabetes mellitus without complication E11.9 ; Type 2 diabetes mellitus with hyperglycemia, without long-term current use of insulin E11.65 ; Idiopathic pulmonary fibrosis J84.112 ; Essential hypertension I10 ; Tobacco use Z72.0 ; 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 ; Hyperlipidemia E78.5 and Chronic obstructive pulmonary disease, unspecified J44.9 [place] [address] [place] [address] 45241- 3615 Apr, Dental examination Z01.20 [facility] [address], [place] [address] 3464 Apr, [facility] [address], [place] [address]- 7517 Apr, [facility] [address], [place] [address]- 3957 Apr, [facility] [id number] [place] [address] 65228- 5902 Apr, [facility] [address], [place] [address]- 9933 Apr, [facility] [id number] [place] [address] 00401- 3255 Apr, Type 2 diabetes mellitus without complication E11.9 and Essential hypertension I10 [facility] [id number], [place] [address] 34[address] Mar, [facility] [address], [place] [address]- 8628 Mar, 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 [facility] [address] [place] [address] 92546- 2310 Mar, Type 2 diabetes mellitus without complication E11.9 ; Essential hypertension I10 and Hyperlipidemia E78.5 [facility] [address], [place] [address]- 3486 Mar, 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 [facility] [address], [place] [address]- 2514 Mar, [facility] [address] [place] [address] 65671- 1811 Mar, Hyperlipidemia E78.5 ; Essential hypertension I10 and Type 2 diabetes mellitus without complication E11.9 [facility] [address], [place] [address]- 3593 Feb, 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 and Essential hypertension I10 [facility] [address] [place] [address] 68566- 9418 Jan, 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 [facility] [address], [place] [address]- 0539 Dec, 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 [facility] [id number] [place] [address] 06451- 1707 Dec, [facility] [id number] [place] [address] 18105- 1333 November, 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 and Psoriasis L40.9 [place] [id number] [place] [address] 57156- 1233 November, Hyperlipidemia E78.5 [facility] [address] [place] [address] 74658- 2387 November, Type 2 diabetes mellitus without complication E11.9 [facility] [address] [place] [address] 13859- 9917 November, [facility] [address] [place] [address] 77451- 8208 November, 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 ; Hyperlipidemia E78.5 ; Type 2 diabetes mellitus without complication E11.9 ; Idiopathic pulmonary fibrosis J84.112 and Tobacco use Z72.0 [facility] [address], [place] [address]- 2418 Oct, Essential hypertension I10 and 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 [facility] [address], [place] [address]- 3720 Sep, 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 and Psoriasis L40.9 [facility] [address] [place] [address] 75807- 9001 Jul, 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 [id number] [place] [address] 47732- 9114 Jul, Idiopathic pulmonary fibrosis J84.112 [facility] [id number] [place] [id number] Jul, [address] [address]952- 8506 Jul, Idiopathic pulmonary fibrosis J84.[address] 20595- 4695 Jul, Idiopathic pulmonary fibrosis J84.112 and Hypoxia R09.02 [address] [id number] [place] [address] 54076- 9474 Jul, Cough R05 and Idiopathic pulmonary fibrosis J84.112 [address] [id number] [place] [address] 61422- 3777 Apr, Type 2 diabetes mellitus without complication E11.9 ; 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 ; Psoriasis L40.9 ; Hyperlipidemia E78.5 ; Idiopathic pulmonary fibrosis J84.112 and Essential hypertension I10 [address] [id number] [place] [address] 80811- 6054 Feb, [address] [id number] [place] [address] 47134- 0676 Feb, [address] [address] [id number] [place] [address] 91423- 3095 Dec, Right ankle gives way M25.[address] 47530- 9962 November, [place] [id number] [place] [address] 78120- 1732 November, Wrist pain, left M25.[address] 24645- 8461 Sep, Psoriasis L40.9 [facility] [address] [place] [address] 58969- 1048 Sep, COPD exacerbation J44.1 [facility] [id number] [place] [address] 12333- 5472 15 Aug, 2015 [facility] [id number] [place] [address] 45935- 8930 Aug, 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 and Hyperlipidemia E78.5 [facility] [id number] [place] [address] 75115- 6573 Aug, [facility] [id number] [place] [address] 20910- 9139 Aug, Psoriasis L40.9 ; 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 and Essential hypertension I10 [facility] [id number] [place] [address] 58406- 2770 Jul, [facility] [id number] [place] [address] 73021- 9242 Jul, [facility] [id number] [place] [address] 78112- 4300 Jul, Type 2 diabetes mellitus without complication E11.9 ; Hyperlipidemia E78.5 and 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 [facility] [address] [place] [address] 43056- 5368 Jun, [facility] [address] [place] [address] 36496- 4988 Apr, [facility] [id number] [place] [address] 89127- 8641 Mar, [facility] [address] [place] [address] 93576- 9038 Mar, [facility] [id number] [place] [address] 49501- 6398 Mar, Rheumatoid arthritis 714.0 ; Other psoriasis 696.1 and Cellulitis, axillary fold 682.3 [facility] [address], [place] [address]- 0466 Jan, [facility] [id number] [address]- 8952 Dec, [facility] [id number] [place] [address] 18020- 0700 Dec, Other and unspecified hyperlipidemia 272.4 ; Other psoriasis 696.1 and Diabetes mellitus without mention of complication, type II or unspecified type, not stated as uncontrolled 250.00 [facility] [address] [address] 7714 Dec, [facility] [id number] [place] [address] 44109- 6758 November, [facility] [address], [place] [address]- 1388 Oct, [facility] [address], [place] [address]- 4788 Oct, [facility] [address] [address]- 9758 Sep, [facility] [address], [place] [address]- 9334 Sep, [facility] [address] 4716 Sep, [facility] [address], [place] [address]- 7519 Sep, [facility] [address] 7858 Sep, [facility] [address], [place] [address]- 3365 Sep, [facility] [address] [place] [address]- 8952 13 Sep, 2014 [facility] [address] [id number] [place] [address]- 5342 13 Sep, 2014 [facility] [place] [facility] [address] [id number] [place] [address]- 0166 03 Sep, 2014 [facility] [address] [id number] [place] [address]- 2577 03 Sep, 2014 [facility] [address] [id number] [place] [address]- 9086 19 Jul, 2014 [facility] [address] [id number] [place] [address]- 9238 19 Jul, 2014 [facility] [address] [id number] [place] [address]- 5760 16 Jul, 2014 [facility] [address] [id number] [place] [address]- 5178 16 Jul, 2014 [facility] [address] [id number] [place] [address]- 7103 15 Jul, 2014 [facility] [address] [id number] [place] [address]- 3942 15 Jul, 2014 [facility] [address] [id number] [place] [address]- 2489 13 Jul, 2014 [facility] [address] [id number] [place] [address]- 8965 13 Jul, 2014 [facility] [address] [id number] [place] [address]- 8745 Jun, [facility] [place] [facility] [address] [id number] [place] [address]- 4042 Jun, [facility] [place] [facility] [address] [id number] [place] [address]- 7676 Jun, [facility] [place] [facility] [address] [id number] [place] [address]- 8126 Jun, [facility] [place] [facility] [address] [id number] [place] [address]- 6416 Jun, [facility] [place] [facility] [address] [id number] [place] [address]- 3630 Jun, [facility] [place] [facility] [address] [id number] [place] 0265 Apr, [facility] [place] [facility] [address] [id number] [place] [address]- 3191 Apr, [facility] [place] [facility] [address] [id number] [place] 1179 Mar, [facility] [place] [facility] [address] [id number] [place] [address]- 2469 Mar, [facility] [place] [facility] [address] [id number] [place] [address]- 2234 Feb, [facility] [place] [facility] [address] [id number] [place] [address]- 0577 Feb, [facility] [place] [facility] [address] [id number] [place] [address]- 6065 Jan, [facility] [place] [facility] [address] [id number] [place] [address]- 8316 Jan, [facility] [place] [facility] [address] [id number], [place] [address]- 6839 Jan, [facility] [place] [facility] [address] [id number], [place] [address]- 9324 Jan, [facility] [place] [facility] [address] [id number] [place] [address]- 6230 Jan, [facility] [place] [facility] [address] [id number] [place] [address]- 9322 Dec, [facility] [place] [facility] [address] [id number] [place] [address]- 6895 Dec, [facility] [place] [facility] [address] [id number], [place] [address]- 2886 Dec, [facility] [place] [facility] [address] [id number] [place] [address]- 1263 Dec, [facility] [place] [facility] [address] [facility] [id number] [place] [address]- 7778 November, [facility] [place] [facility] [address] [facility] [id number] [place] [address]- 2401 November, [facility] [place] [facility] [address] [facility] [id number] [place] [address]- 4308 Oct, [facility] [place] [facility] [address] [facility] [id number] [place] [address]- 2911 Oct, [facility] [place] [facility] [address] [facility] [id number] [place] [address]- 8173 Sep, [facility] [place] [facility] [address] [facility] [id number] [place] [address]- 9287 Sep, [facility] [place] [facility] [address] [facility] [id number] [place] [address]- 3137 Sep, [facility] [place] [facility] [address] [facility] [id number] [place] [address]- 4394 Sep, [facility] [place] [facility] [address] [facility] [id number] [place] [address]- 6572 Aug, [facility] [place] [facility] [address] [facility] [id number] [place] [address]- 4564 Aug, [facility] [place] [facility] [address] [facility] [id number] [place] [address]- 7418 Aug, [facility] [place] [facility] [address] [id number] [place] [address]- 4463 Aug, [facility] [place] [facility] [address] [facility] [id number] [place] [address]- 4011 Aug, [facility] [place] [facility] [address] [facility] [id number] [place] [address]- 0200 Aug, [facility] [place] [facility] [address] [id number] [place] [address]- 6739 Jul, [facility] [address] [id number] [place] [address]- 3139 Jul, [facility] [place] [facility] [address] [id number] [place] [address]- 2790 Jul, [facility] [place] [facility] [address] [id number] [place] [address]- 2416 Jul, [facility] [address] [id number] [place] [address]- 4149 Jul, [facility] [place] [facility] [address] [id number] [place] [address]- 3071 Jul, [facility] [address] [id number] [place] [address]- 4598 Jul, [facility] [address] [id number] [place] [address]- 6784 Jul, [facility] [place] [facility] [address] [id number] [place] [address]- 9246 Jun, [facility] [place] [facility] [address] [id number] [place] 1730 Jun, [facility] [place] [facility] [address] [id number] [place] [address]- 4438 Jun, [facility] [place] [facility] [address] [id number], [place] [address]- 6254 Jun, [facility] [place] [facility] [address] [id number] [place] [address]- 9656 Jun, [facility] [place] [facility] [address] [id number] [place] [address]- 8586 Jun, [facility] [place] [facility] [address] [id number] [place] [address]- 9980 May, [facility] [place] [facility] [address] [id number], [place] [address]- 1967 May, [facility] [place] [facility] [address] [id number] [place] [address]- 1614 May, [facility] [place] [facility] [address] [id number] [place] [address]- 7331 May, [facility] [place] [facility] [address] [id number] [place] [address]- 7154 Apr, [facility] [place] [facility] [address] [id number] [place] [address]- 9965 Apr, [facility] [place] [facility] [address] [id number] [place] [address]- 9184 Apr, [facility] [place] [facility] [address] [id number] [place] [address]- 7337 Apr, [facility] [place] [facility] [address] [id number] [place] [address]- 8882 25 Mar, 2013 [facility] [place] [facility] [address] [id number] [place] [address]- 1913 23 Mar, 2013 [facility] [place] [facility] [address] [id number] [place] [address]- 7371 16 Mar, 2013 [facility] [place] [facility] [address] [id number] [place] [address]- 3833 12 Mar, 2013 [facility] [place] [facility] [address] [id number] [place] [address]- 7974 09 Mar, 2013 [facility] [place] [facility] [address] [id number] [place] [address]- 4209 Mar, [facility] [place] [facility] [address] [id number] [place] [address]- 9370 Feb, [facility] [place] [facility] [address] [id number] [place] [address]- 8094 Feb, [facility] [place] [facility] [address] [id number] [place] [address]- 9524 Feb, [facility] [place] [facility] [address] [id number] [place] [address]- 9121 Feb, [facility] [address] [id number] [place] [address]- 3389 Jan, [facility] [place] [facility] [address] [id number] [place] [address] 2546 Dec, [facility] [place] [facility] [address] [id number] [place] [address]- 1106 November, [facility] [place] [facility] [address] [id number] [place] [address]- 5582 Sep, [facility] [place] [facility] [address] [id number] [place] [address]- 4846 Aug, [facility] [place] [facility] [address] [id number] [place] [address]- 4562 Aug, [facility] [place] [facility] [address] [id number] [place] [address] Jul, [facility] [address] [id number] [place] [address] Jul, [facility] [address] [id number] [place] [address] Jun, [facility] [address] [id number] [place] [address] Jun, [facility] [facility] [address] [id number] [place] [address] Jun, [facility] [place] [facility] [address] [id number] [place] [address] Jun, [facility] [place] [facility] [address] [id number] [place] [address] Jun, [facility] [place] [facility] [address] [id number] [place] [address] Jun, [facility] [place] [facility] [address] [id number] [place] [address] 30 May, 2012 [facility] [place] [facility] [address] [id number] [place] [address] 29 May, 2012 [facility] [place] [facility] [address] [id number] [place] [address] 28 May, 2012 [facility] [place] [facility] [address] [id number] [place] [address] 28 May, 2012 [facility] [place] [facility] [address] [id number] [place] [address] May, [facility] [place] [facility] [address] [id number] [place] [address] 27 May, 2012 [facility] [place] [facility] [address] [id number] [place] [address] 15 May, 2012 [facility] [place] [facility] [address] [id number] [place] [address]- [address] 15 May, 2012 [facility] [place] [facility] [address] [id number], [place] [address] 14 May, 2012 [facility] [place] [facility] [address] [id number] [place] [address] 14 May, 2012 [facility] [place] [facility] [address] [facility] [id number] [place] [address] 12 May, 2012 [facility] [place] [facility] [address] [id number], [place] [address] 12 May, 2012 [facility] [place] [facility] [address] [id number], [place] [address] 10 May, 2012 [facility] [place] [facility] [address] [id number] [place] [address] 10 May, 2012 [facility] [place] [facility] [address] [id number], [place] [address] 08 May, 2012 [facility] [place] [facility] [address] [id number], [place] [address] 26 Apr, 2012 [facility] [place] [facility] [address] [id number] [place] [address] Apr, [facility] [place] [facility] [address] [id number] [place] [address] Apr, [facility] [place] [facility] [address] [id number] [place] [address] Apr, [facility] [place] [facility] [address] [id number] [place] [address] Apr, [facility] [place] [facility] [address] [id number] [place] [address] Apr, [facility] [place] [facility] [address] [id number] [place] [address] Apr, [facility] [place] [facility] [address] [id number] [place] [address] Apr, [facility] [place] [facility] [address] [id number] [place] [address] Apr, [facility] [place] [facility] [address] [id number] [place] [address] Apr, [facility] [place] [facility] [address] [id number] [place] [address] 25 Mar, 2012 [facility] [place] [facility] [address] [id number] [place] [address] 24 Mar, 2012 [facility] [place] [facility] [address] [id number] [place] [address] 14 Mar, 2012 [facility] [place] [facility] [address] [id number] [place] [address] 04 Mar, 2012 [facility] [place] [facility] [address] [id number] [place] [address] Feb, [facility] [place] [facility] [address] [id number] [place] [address] Feb, [facility] [place] [facility] [address] [id number] [place] [address] 15 Feb, 2012 [facility] [address] [id number] [address] Feb, [facility] [address] [id number], [place] [address] Feb, [facility] [id number], [place] [address] November, [facility] [id number] [place] [address] Aug, [facility] [id number] [place] [address] May, [facility] [id number], [place] [address] May, [facility] [id number], [place] [address] Apr, [facility] [id number], [place] [address] Mar, IMMUNIZATIONS No Known Immunizations SOCIAL HISTORY Never Assessed REASON FOR VISIT PLAN OF CARE VITAL SIGNS MEDICATIONS Medication Instructions Dosage Frequency Start Date End Date Duration Status Albuterol Sulfate (2.5 MG/3ML) 0.083% Inhalation every 6 hrs 3 ml as needed Mar, Active RESULTS No Results PROCEDURES No Known [...] Hospitalization History Resp distress with hypoxia, pulmonary fibrosis-[facility] 08/03/16 Hospitalization History Shortness of breath 04/2017
--- OUTSIDE RECORDS SUMMARY | 2017-12-21 17:04 | XMS REPORT ---
Author Author KENNETH HERNANDEZ [facility] Address [address] [place] [address] Care Team Providers Care Cheesemaker Helper Name Role Phone ALCONNAJMAELISSAEarnest KENNETH Unavailable PROBLEMS Type Condition ICD9-CM Code CTH15-KK Code Onset Dates Condition Status SNOMED Code Problem Psoriasis L40.9 Active 9191222 Problem 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 Active 449394518 Problem Vision loss, left eye H54.62 Active 76384920 Problem Primary insomnia F51.01 Active 9578223 Problem Other elevated white blood cell (WBC) count D72.828 Active 470673502 Problem Essential hypertension I10 Active 56730267 Problem Hematochezia K92.1 Active 454836588 Problem Type 2 diabetes mellitus with hyperglycemia, without long-term current use of insulin E11.65 Active 59571589 Problem Tobacco use Z72.0 Active 702840856 Problem Renal cyst, right N28.1 Active 64369885 Problem Idiopathic pulmonary fibrosis J84.112 Active 505430832 Problem Chronic obstructive pulmonary disease, unspecified J44.9 Active 43032000 Problem Lactic acidosis E87.2 Active 49074009 Problem Hyperlipidemia E78.5 Active 89310009 ALLERGIES No Information ENCOUNTERS Encounter Location Date Diagnosis [facility], [place] [id number] [address] November, [facility], [place] [id number] [address] Oct, 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 [facility], [place] [id number] [address] Oct, [facility], [place] [id number], [place] [address] Oct, 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 [place] [id number] [place] [address] 14817- 8102 Oct, 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 ; Type 2 diabetes mellitus with hyperglycemia, without long-term current use of insulin E11.65 ; Hyperlipidemia E78.5 and Other elevated white blood cell (WBC) count D72.828 [place] [address] [address] Oct, Chronic obstructive pulmonary disease, unspecified J44.9 [place] [id number] [place] [address] 41461- 5847 Oct, 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 [place] [id number] [place] [address] 88502- 3744 Oct, Type 2 diabetes mellitus with hyperglycemia, without long- term current use of insulin E11.65 [place] [id number] [place] [address] 37020- 0083 Sep, [place] [id number] [place] [address] 74443- 1874 Sep, 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 ; Visit for TB skin test Z11.1 and Psoriasis L40.9 [place] [id number] [place] [address] 16202- 1768 Sep, Type 2 diabetes mellitus with hyperglycemia, without long- term current use of insulin E11.65 ; 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 ; Hyperlipidemia E78.5 ; Essential hypertension I10 ; Other elevated white blood cell (WBC) count D72.828 ; Primary insomnia F51.01 and Tobacco use Z72.0 [place] [id number] [place] [address] 03911- 4458 Sep, [place] [id number] [place] [address] 84331- 5019 Aug, Type 2 diabetes mellitus with hyperglycemia, without long- term current use of insulin E11.65 and Hyperlipidemia E78.5 [place] [address] [address] Jul, [facility], [place] [id number] [place] [address] 31173- 0369 Jul, 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 [place] [id number] [place] [address] 66959- 3617 Jul, 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 [place] [id number] [place] [address] 14261- 4519 Jun, Essential hypertension I10 and Hyperlipidemia E78.5 [place] [id number] [place] [address] 19458- 4830 Jun, Chronic obstructive pulmonary disease, unspecified J44.9 [place] [id number] [place] [address] 74984- 2862 Jun, [place] [id number] [place] [address] 67337- 6287 May, Type 2 diabetes mellitus without complication E11.9 ; 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 ; Psoriasis L40.9 and Essential hypertension I10 [facility] [id number] [id number] May, Dental examination Z01.20 and Dental caries K02.9 [place] [id number] [place] [address] 01823- 5183 Apr, Type 2 diabetes mellitus without complication E11.9 ; Type 2 diabetes mellitus with hyperglycemia, without long-term current use of insulin E11.65 ; Idiopathic pulmonary fibrosis J84.112 ; Essential hypertension I10 ; Tobacco use Z72.0 ; 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 ; Hyperlipidemia E78.5 and Chronic obstructive pulmonary disease, unspecified J44.9 [place] [id number] [place] [address] 73492- 5969 Apr, Dental examination Z01.20 [facility], [place] [address], [place] [address] 7368 Apr, [facility], [place] [id number] [place] [address] 52210- 7805 Apr, [facility], [place] [id number] [place] [address] 24445- 3543 Apr, [facility], [place] [id number] [place] [address] 19075- 7283 Apr, [facility], [place] [id number] [place] [address] 19082- 3560 Apr, [facility], [place] [id number] [place] [address] 88217- 5483 Apr, Type 2 diabetes mellitus without complication E11.9 and Essential hypertension I10 [facility], [place] [id number] [place] [address] 59475- 9306 Mar, [facility], [place] [id number] [place] [address] 36182- 3180 Mar, 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 [facility], [place] [id number] [place] [address] 11792- 9007 Mar, Type 2 diabetes mellitus without complication E11.9 ; Essential hypertension I10 and Hyperlipidemia E78.5 [facility], [place] [id number] [place] [address] 22265- 2048 Mar, 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 [facility], [place] [address], [place] [address] 6[address] Mar, [facility], [place] [id number] [place] [address] 90715- 3910 08 Mar, 2017 Hyperlipidemia E78.5 ; Essential hypertension I10 and Type 2 diabetes mellitus without complication E11.9 [facility], [place] [id number] [place] [address] 61446- 8376 Feb, 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 and Essential hypertension I10 [place] [address], [place] [address]- 1465 Jan, 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 [facility], [place] [address], [place] [address]- 1608 Dec, 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 [facility], [place] [address], [place] [address]- 0889 Dec, [place] [id number] [place] [address] 44437- 5351 November, 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 and Psoriasis L40.9 [place] [id number] [place] [address] 05835- 0546 November, Hyperlipidemia E78.5 [facility], [place] [address] [address]- 4955 November, Type 2 diabetes mellitus without complication E11.9 [place] [address], [place] [address]- 7[address] November, [facility], [place] [address], [place] [address]- 5464 November, 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 ; Hyperlipidemia E78.5 ; Type 2 diabetes mellitus without complication E11.9 ; Idiopathic pulmonary fibrosis J84.112 and Tobacco use Z72.0 [facility], [place] [address], [place] [address]- 2963 Oct, Essential hypertension I10 and 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 [facility], [place] [address], [place] [address]- 2450 Sep, 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 and Psoriasis L40.9 [facility], [place] [id number] [place] [address] 86717- 1475 Jul, 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 [place] [id number] [place] [address] 01578- 7781 Jul, Idiopathic pulmonary fibrosis J84.112 [facility] [address] [id number] Jul, [place] [address] 91587- 2398 Jul, Idiopathic pulmonary fibrosis J84.[address] 55492- 1298 Jul, Idiopathic pulmonary fibrosis J84.112 and Hypoxia R09.02 [place] [id number] [place] [address] 61707- 6685 Jul, Cough R05 and Idiopathic pulmonary fibrosis J84.112 [place] [id number] [place] [address] 52104- 1530 Apr, Type 2 diabetes mellitus without complication E11.9 ; 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 ; Psoriasis L40.9 ; Hyperlipidemia E78.5 ; Idiopathic pulmonary fibrosis J84.112 and Essential hypertension I10 [place] [id number] [place] [address] 20729- 4697 Feb, [place] [id number] [place] [address] 21828- 4007 Feb, [place] [id number] [place] [address] 36004- 4418 Dec, Right ankle gives way M25.[address] 82399- 4397 November, [place] [id number] [place] [address] 57001- 2979 November, Wrist pain, left M25.[address] [place] [address]- 6199 30 Sep, 2015 Psoriasis L40.9 [facility], [place] [id number] [place] [address] 12109- 1074 Sep, COPD exacerbation J44.1 [facility], [place] [id number] [place] [address] 61222- 5202 15 Aug, 2015 [facility], [place] [id number] [place] [address] 86405- 1814 Aug, 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 and Hyperlipidemia E78.5 [facility], [place] [id number] [place] [address] 05841- 0536 Aug, [facility], [place] [id number] [place] [address] 52759- 7303 Aug, Psoriasis L40.9 ; 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 and Essential hypertension I10 [facility], [place] [id number] [place] [address] 50333- 4597 Jul, [facility], [place] [id number] [place] [address] 53109- 2244 Jul, [facility], [place] [id number] [place] [address] 31883- 5866 Jul, Type 2 diabetes mellitus without complication E11.9 ; Hyperlipidemia E78.5 and 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 [facility], [place] [address] [address]- 5656 Jun, [facility], [place] [id number] [place] [address] 63117- 6152 Apr, [facility], [place] [id number] [place] [address] 90788- 0721 Mar, [facility], [place] [id number], [place] [address]- 9725 Mar, [facility], [place] [id number] [address]- 2836 Mar, Rheumatoid arthritis 714.0 ; Other psoriasis 696.1 and Cellulitis, axillary fold 682.3 [facility], [place] [address], [place] [address]- 0836 Jan, [facility], [place] [address] [address]- 2706 Dec, [facility], [place] [id number] [place] [address] 71333- 7083 Dec, Other and unspecified hyperlipidemia 272.4 ; Other psoriasis 696.1 and Diabetes mellitus without mention of complication, type II or unspecified type, not stated as uncontrolled 250.00 [facility], [place] [address], [place] [address]- 2046 Dec, [facility], [place] [id number] [place] [address] 88430- 2046 November, [facility], [place] [id number], [place] [address]- 2665 Oct, [facility], [place] [id number], [place] [address]- 9762 Oct, [facility], [place] [id number] [address] 8396 Sep, [facility], [place] [address], [place] [address]- 1446 Sep, [facility], [place] [id number] [address]- 6101 Sep, [facility], [place] [id number], [place] [address]- 4316 Sep, [facility], [place] [address], [place] [address]- 2636 Sep, [facility], [place] [address] [address]- 9066 Sep, [facility] [place] [facility] [address] [id number] [place] [address]- 2375 13 Sep, 2014 [facility] [place] [facility] [address] [id number] [place] [address]- 8670 13 Sep, 2014 [facility] [place] [facility] [address] [id number] [place] [address]- 7981 03 Sep, 2014 [facility] [place] [facility] [address] [id number] [place] [address]- 7957 03 Sep, 2014 [facility] [place] [facility] [address] [id number] [place] [address]- 8631 19 Jul, 2014 [facility] [place] [facility] [address] [id number] [place] [address]- 7399 19 Jul, 2014 [facility] [place] [facility] [address] [id number] [place] [address]- 8892 16 Jul, 2014 [facility] [place] [facility] [address] [id number] [place] [address]- 5130 16 Jul, 2014 [facility] [place] [facility] [address] [id number] [place] [address]- 3563 15 Jul, 2014 [facility] [place] [facility] [address] [id number] [place] [address]- 3634 15 Jul, 2014 [facility] [place] [facility] [address] [id number] [place] [address]- 5262 13 Jul, 2014 [facility] [place] [facility] [address] [id number] [place] [address]- 7612 Jul, [facility] [place] [facility] [address] [id number] [place] [address]- 3236 Jun, [facility] [place] [facility] [address] [id number] [place] [address]- 6673 Jun, [facility] [place] [facility] [address] [id number] [place] [address]- 6727 Jun, [facility] [place] [facility] [address] [id number] [place] [address]- 7246 Jun, [facility] [place] [facility] [address] [id number] [place] [address]- 1263 Jun, [facility] [place] [facility] [address] [id number] [place] [address]- 7222 Jun, [facility] [place] [facility] [address] [id number] [place] [address]- 9649 Apr, [facility] [place] [facility] [address] [id number] [place] [address]- 0079 Apr, [facility] [place] [facility] [address] [id number] [place] [address]- 7454 Mar, [facility] [place] [facility] [address] [id number] [place] [address]- 5218 Mar, [facility] [place] [facility] [address] [id number] [place] [address]- 3104 Feb, [facility] [place] [facility] [address] [id number] [place] [address]- 4705 Feb, [facility] [place] [facility] [address] [id number] [place] [address]- 5524 Jan, [facility] [place] [facility] [address] [id number] [place] [address]- 8644 Jan, [facility] [place] [facility] [address] [id number] [place] [address]- 2587 Jan, [facility] [place] [facility] [address] [id number] [place] [address]- 4530 Jan, [facility] [place] [facility] [address] [id number] [place] [address]- 3335 Jan, [facility] [place] [facility] [address] [id number] [place] [address]- 0371 Dec, [facility] [place] [facility] [address] [id number] [place] [address]- 7011 Dec, [facility] [place] [facility] [address] [id number] [place] [address]- 3528 Dec, [facility] [address] [id number] [place] [address]- 3337 Dec, [facility] [place] [facility] [address] [id number] [place] [address]- 3812 November, [facility] [place] [facility] [address] [id number] [place] [address]- 5072 November, [facility] [place] [facility] [address] [id number] [place] [address]- 6714 Oct, [facility] [place] [facility] [address] [id number] [place] 9289 Oct, [facility] [place] [facility] [address] [id number] [place] [address]- 8788 Sep, [facility] [place] [facility] [address] [id number] [place] [address]- 7578 Sep, [facility] [place] [facility] [address] [id number] [place] [address]- 7482 Sep, [facility] [place] [facility] [address] [id number] [place] [address]- 1983 Sep, [facility] [place] [facility] [address] [id number] [place] [address]- 6238 Aug, [facility] [place] [facility] [address] [id number] [place] [address]- 5764 Aug, [facility] [place] [facility] [address] [id number] [place] Aug, [facility] [place] [facility] [address] [id number] [place] [address]- 1146 Aug, [facility] [place] [facility] [address] [id number] [place] [address]- 6996 Aug, [facility] [place] [facility] [address] [id number] [place] [address]- 0608 Aug, [facility] [address] [id number] [place] [address]- 1459 Jul, [facility] [place] [facility] [address] [id number] [place] [address]- 9196 Jul, [facility] [place] [facility] [address] [facility] [id number] [place] [address]- 1662 Jul, [facility] [place] [facility] [address] [id number] [place] [address]- 9247 Jul, [facility] [place] [facility] [address] [id number] [place] [address]- 9166 Jul, [facility] [place] [facility] [address] [id number] [place] [address]- 3871 Jul, [facility] [place] [facility] [address] [facility] [id number] [place] [address]- 9676 Jul, [facility] [place] [facility] [address] [id number] [place] [address]- 2339 Jul, [facility] [place] [facility] [address] [id number] [place] [address]- 4175 Jun, [facility] [place] [facility] [address] [id number] [place] [address]- 5501 Jun, [facility] [place] [facility] [address] [id number] [address]- 3613 Jun, [facility] [place] [facility] [address] [id number], [place] [address]- 5074 Jun, [facility] [place] [facility] [address] [id number] [place] [address]- 2476 Jun, [facility] [place] [facility] [address] [facility] [id number], [place] [address]- 8156 Jun, [facility] [place] [facility] [address] [facility] [id number], [place] [address]- 3676 May, [facility] [place] [facility] [address] [id number] [place] [address]- 8364 20 May, 2013 [facility] [place] [facility] [address] [id number] [place] [address]- 8355 14 May, 2013 [facility] [place] [facility] [address] [id number] [place] [address]- 5367 May, [facility] [place] [facility] [address] [id number] [place] [address]- 3079 Apr, [facility] [place] [facility] [address] [id number] [place] [address]- 0772 Apr, [facility] [place] [facility] [address] [id number] [place] [address]- 9143 08 Apr, 2013 [facility] [place] [facility] [address] [id number] [place] [address]- 2222 07 Apr, 2013 [facility] [place] [facility] [address] [id number] [place] [address]- 2384 25 Mar, 2013 [facility] [place] [facility] [address] [id number] [place] [address]- 6222 23 Mar, 2013 [facility] [place] [facility] [address] [id number] [place] [address]- 4667 16 Mar, 2013 [facility] [place] [facility] [address] [id number] [place] [address]- 8219 12 Mar, 2013 [facility] [place] [facility] [address] [id number] [place] [address] 09 Mar, 2013 [facility] [place] [facility] [address] [id number] [place] [address] 04 Mar, 2013 [facility] [place] [facility] [address] [id number] [place] [address] Feb, [facility] [place] [facility] [address] [id number] [place] [address] Feb, [facility] [place] [facility] [address] [id number] [place] [address] Feb, [facility] [place] [facility] [address] [id number] [place] [address] Feb, [facility] [address] [id number] [place] [address] Jan, [facility] [address] [id number] [place] [address] Dec, [facility] [place] [facility] [address] [id number] [place] [address] November, [facility] [address] [id number] [place] [address] Sep, [facility] [place] [facility] [address] [id number] [place] [address] Aug, [facility] [address] [id number] [place] [address] Aug, [facility] [address] [id number] [place] [address] Jul, [facility] [address] [id number] [place] [address] Jul, [facility] [address] [id number] [place] [address] Jun, [facility] [address] [id number] [place] [address] Jun, [facility] [place] [facility] [address] [id number], [place] [address] Jun, [facility] [place] [facility] [address] [id number] [place] [address] Jun, [facility] [place] [facility] [address] [id number] [place] [address] Jun, [facility] [place] [facility] [address] [id number] [place] [address] Jun, [facility] [place] [facility] [address] [id number], [place] [address] 30 May, 2012 [facility] [place] [facility] [address] [id number] [place] [address] 29 May, 2012 [facility] [place] [facility] [address] [id number] [place] [address] 28 May, 2012 [facility] [place] [facility] [address] [facility] [id number] [place] [address] 28 May, 2012 [facility] [place] [facility] [address] [id number] [place] [address] 27 May, 2012 [facility] [place] [facility] [address] [id number] [address] [place] [address], [place] [address] 27 May, 2012 [facility] [place] [facility] [address] [facility] [id number] [place] [address] 15 May, 2012 [facility] [place] [facility] [address] [id number] [place] [address] 15 May, 2012 [facility] [place] [facility] [address] [facility] [id number] [place] [address] 14 May, 2012 [facility] [place] [facility] [address] [facility] [id number] [place] [address] 14 May, 2012 [facility] [place] [facility] [address] [facility] [id number] [place] [address] 12 May, 2012 [facility] [place] [facility] [address] [facility] [id number] [address] 12 May, 2012 [facility] [place] [facility] [address] [facility] [id number] [address] 10 May, 2012 [facility] [place] [facility] [address] [id number] [place] [address] 10 May, 2012 [facility] [place] [facility] [address] [facility] [id number] [place] [address] 08 May, 2012 [facility] [place] [facility] [address] [facility] [id number] [place] [address] 26 Apr, 2012 [facility] [place] [facility] [address] [id number] [place] [address] Apr, [facility] [place] [facility] [address] [id number] [place] [address] Apr, [facility] [place] [facility] [address] [id number] [place] [address] Apr, [facility] [place] [facility] [address] [id number] [place] [address] Apr, [facility] [place] [facility] [address] [id number] [place] [address] Apr, [facility] [place] [facility] [address] [id number] [place] [address] Apr, [facility] [place] [facility] [address] [id number] [place] [address]- [address] Apr, [facility] [place] [facility] [address] [id number] [place] [address] Apr, [facility] [place] [facility] [address] [id number] [place] [address]- [address] Apr, [facility] [place] [facility] [address] [id number] [place] [address] 25 Mar, 2012 [facility] [place] [facility] [address] [id number] [place] [address]- 137[address] 24 Mar, 2012 [facility] [place] [facility] [address] [id number] [place] [address] 3214 14 Mar, 2012 [facility] [place] [facility] [address] [id number] [place] [address] 04 Mar, 2012 [facility] [place] [facility] [address] [id number] [place] [address] Feb, [facility] [place] [facility] [address] [id number] [place] [address] 7986 Feb, [facility] [place] [facility] [address] [id number] [place] [address] Feb, [facility] [place] [address] [id number] [address] Feb, [facility] [place] [address] [id number] [address] Feb, [facility] [place] [address] [id number] [address] November, [facility] [place] [id number] [address] Aug, [facility] [place] [id number] [address] May, [facility] [place] [id number] [address] May, [facility] [place] [id number] [address] Apr, [facility] [place] [address] [id number] [address] Mar, IMMUNIZATIONS No Known Immunizations SOCIAL HISTORY Never Assessed REASON FOR VISIT Discharge Rx PLAN OF CARE VITAL SIGNS MEDICATIONS Medication Instructions Dosage Frequency Start Date End Date Duration Status Doxycycline Monohydrate 100 mg Orally every 12 hrs 1 capsule 12h Apr, Apr, 5 day(s) Active PredniSONE 20 mg Orally Once a day 2 tablets 24h Apr, Apr, 05 days Active RESULTS No Results PROCEDURES No [...] Hospitalization History Resp distress with hypoxia, pulmonary fibrosis-[facility] 08/03/16 Hospitalization History Shortness of breath 04/2017
--- OUTSIDE RECORDS SUMMARY | 2017-12-21 17:05 | XMS REPORT ---
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 Name Role Phone GENEVIEVESANTOSH LEMAHANY Unavailable PROBLEMS Type Condition ICD9-CM Code LBO11-WK Code Onset Dates Condition Status SNOMED Code Problem Psoriasis L40.9 Active 8028097 Problem 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 Active 045213860 Problem Vision loss, left eye H54.62 Active 39912046 Problem Primary insomnia F51.01 Active 1937528 Problem Other elevated white blood cell (WBC) count D72.828 Active 716985111 Problem Essential hypertension I10 Active 81933927 Problem Hematochezia K92.1 Active 929086509 Problem Type 2 diabetes mellitus with hyperglycemia, without long-term current use of insulin E11.65 Active 38811101 Problem Tobacco use Z72.0 Active 704487165 Problem Renal cyst, right N28.1 Active 77440162 Problem Idiopathic pulmonary fibrosis J84.112 Active 605678254 Problem Chronic obstructive pulmonary disease, unspecified J44.9 Active 77357063 Problem Lactic acidosis E87.2 Active 97125723 Problem Hyperlipidemia E78.5 Active 83725784 ALLERGIES No Information ENCOUNTERS Encounter Location Date Diagnosis [facility] [id number], [place] [address] November, [facility] [id number], [place] [address] Oct, 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 [facility] [id number] [place] [address] 14586- 5088 Oct, [facility] [id number], [place] [address] Oct, 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 [facility] [id number] [place] [address] 17782- 2131 Oct, 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 ; Type 2 diabetes mellitus with hyperglycemia, without long-term current use of insulin E11.65 ; Hyperlipidemia E78.5 and Other elevated white blood cell (WBC) count D72.828 [place] [facility] [address] [address] Oct, Chronic obstructive pulmonary disease, unspecified J44.9 [facility] [facility] [address] 15148- 7226 Oct, 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 [place] [facility] [address] [address]- [address]88 Oct, Type 2 diabetes mellitus with hyperglycemia, without long- term current use of insulin E11.65 [facility] [facility] [address] [address]- [address] Sep, [facility] [facility] [address] 24888- 6142 Sep, Visit for TB skin test Z11.1 ; 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 and Psoriasis L40.9 [facility] [facility] [id number] [place] [address] 17825- 7540 Sep, Type 2 diabetes mellitus with hyperglycemia, without long- term current use of insulin E11.65 ; 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 ; Hyperlipidemia E78.5 ; Essential hypertension I10 ; Other elevated white blood cell (WBC) count D72.828 ; Primary insomnia F51.01 and Tobacco use Z72.0 [place] [address] [address]- [address]89 Sep, [place] [facility] [address] 08607- 3537 Aug, Type 2 diabetes mellitus with hyperglycemia, without long- term current use of insulin E11.65 and Hyperlipidemia E78.5 [facility] [address], [place] [address] Jul, [facility] [address] [place] [address] 32673- 7832 Jul, 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 [facility] [id number] [place] [address] 34549- 9784 Jul, 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 [facility] [id number] [place] [address] 33600- 6840 Jun, Essential hypertension I10 and Hyperlipidemia E78.5 [facility] [facility] [id number] [place] [address] 39716- 2899 Jun, Chronic obstructive pulmonary disease, unspecified J44.9 [facility] [id number] [place] [address] 29975- 0371 Jun, [place] [address] [place] [address] 93297- 3600 May, Type 2 diabetes mellitus without complication E11.9 ; 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 ; Psoriasis L40.9 and Essential hypertension I10 [facility] [address] [place] [id number] May, Dental examination Z01.20 and Dental caries K02.9 [place] [address] [place] [address] 08849- 9096 Apr, Type 2 diabetes mellitus without complication E11.9 ; Type 2 diabetes mellitus with hyperglycemia, without long-term current use of insulin E11.65 ; Idiopathic pulmonary fibrosis J84.112 ; Essential hypertension I10 ; Tobacco use Z72.0 ; 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 ; Hyperlipidemia E78.5 and Chronic obstructive pulmonary disease, unspecified J44.9 [place] [address] [place] [address] 82177- 7152 Apr, Dental examination Z01.20 [facility] [address], [place] [address] Apr, [facility] [address], [place] [address] 3771 Apr, [facility] [address], [place] [address]- 3500 Apr, [facility] [id number] [place] [address] 71904- 7803 Apr, [facility] [address], [place] [address] 3552 Apr, [facility] [id number] [place] [address] 42324- 3958 Apr, Type 2 diabetes mellitus without complication E11.9 and Essential hypertension I10 [facility] [id number], [place] [address] 68[address] Mar, [facility] [address], [place] [address] 0312 Mar, 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 [facility] [address] [place] [address] 38575- 5768 Mar, Type 2 diabetes mellitus without complication E11.9 ; Essential hypertension I10 and Hyperlipidemia E78.5 [facility] [address], [place] [address]- 0539 Mar, 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 [facility] [address], [place] [address]- 7[address] Mar, [facility] [address] [place] [address] 49532- 7941 Mar, Hyperlipidemia E78.5 ; Essential hypertension I10 and Type 2 diabetes mellitus without complication E11.9 [facility] [address], [place] [address] 4258 Feb, 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 and Essential hypertension I10 [facility] [address] [place] [address] 72709- 7146 Jan, 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 [facility] [address], [place] [address]- 7998 Dec, 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 [facility] [id number] [place] [address] 21728- 8244 Dec, [facility] [id number] [place] [address] 74152- 8859 November, 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 and Psoriasis L40.9 [facility] [id number] [place] [address] 29893- 7146 November, Hyperlipidemia E78.5 [facility] [address] [place] [address] 25130- 3983 November, Type 2 diabetes mellitus without complication E11.9 [facility] [address] [place] [address] 52903- 7963 November, [facility] [address] [place] [address] 64812- 9547 November, 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 ; Hyperlipidemia E78.5 ; Type 2 diabetes mellitus without complication E11.9 ; Idiopathic pulmonary fibrosis J84.112 and Tobacco use Z72.0 [facility] [address], [place] [address]- 0877 Oct, Essential hypertension I10 and 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 [facility] [address], [place] [address]- 8757 Sep, 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 and Psoriasis L40.9 [facility] [address] [place] [address] 12415- 9328 Jul, 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 [id number] [place] [address] 48348- 2930 Jul, Idiopathic pulmonary fibrosis J84.112 [facility] [id number] [place] [id number] Jul, [address] [address]- 7625 Jul, Idiopathic pulmonary fibrosis J84.[address] 00127- 2150 Jul, Idiopathic pulmonary fibrosis J84.112 and Hypoxia R09.02 [id number] [place] [address] 14404- 5536 Jul, Cough R05 and Idiopathic pulmonary fibrosis J84.112 [id number] [place] [address] 72535- 4537 Apr, Type 2 diabetes mellitus without complication E11.9 ; 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 ; Psoriasis L40.9 ; Hyperlipidemia E78.5 ; Idiopathic pulmonary fibrosis J84.112 and Essential hypertension I10 [id number] [place] [address] 94219- 2381 Feb, [id number] [place] [address] 06749- 5142 Feb, [id number] [place] [address] 56411- 3813 Dec, Right ankle gives way M25.[address] 42941- 0650 November, [id number] [place] [address] 34809- 4365 November, Wrist pain, left M25.[address] 72779- 4845 Sep, Psoriasis L40.9 [facility] [address] [place] [address] 78875- 9742 Sep, COPD exacerbation J44.1 [facility] [id number] [place] [address] 23245- 4359 15 Aug, 2015 [facility] [id number] [place] [address] 21028- 2233 Aug, 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 and Hyperlipidemia E78.5 [facility] [id number] [place] [address] 05544- 2216 Aug, [facility] [id number] [place] [address] 52269- 8267 Aug, Psoriasis L40.9 ; 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 and Essential hypertension I10 [facility] [id number] [place] [address] 59345- 3613 Jul, [facility] [id number] [place] [address] 01262- 6009 Jul, [facility] [id number] [place] [address] 78569- 0749 Jul, Type 2 diabetes mellitus without complication E11.9 ; Hyperlipidemia E78.5 and 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 [facility] [address] [place] [address] 63134- 0541 Jun, [facility] [address] [place] [address] 01953- 1299 Apr, [facility] [id number] [place] [address] 56651- 3783 Mar, [facility] [address] [place] [address] 11074- 6200 Mar, [facility] [id number] [place] [address] 53473- 4315 Mar, Rheumatoid arthritis 714.0 ; Other psoriasis 696.1 and Cellulitis, axillary fold 682.3 [facility] [address], [place] [address]- 5566 Jan, [facility] [id number], [place] [address]- 9617 Dec, [facility] [id number] [place] [address] 90115- 6482 Dec, Other and unspecified hyperlipidemia 272.4 ; Other psoriasis 696.1 and Diabetes mellitus without mention of complication, type II or unspecified type, not stated as uncontrolled 250.00 [facility] [address] 2214 Dec, [facility] [id number] [place] [address] 15468- 9622 November, [facility] [address], [place] [address]- 7552 Oct, [facility] [address], [place] [address]- 7695 Oct, [facility] [address] 5708 Sep, [facility] [address], [place] [address]- 4925 Sep, [facility] [address] [address] 3458 Sep, [facility] [address], [place] [address]- 0913 Sep, [facility] [address] 8540 Sep, [facility] [address], [place] [address]- 8127 Sep, [facility] [address] [place] [address]- 4253 13 Sep, 2014 [facility] [address] [id number] [place] [address]- 0263 13 Sep, 2014 [facility] [place] [facility] [address] [id number] [place] [address]- 5766 03 Sep, 2014 [facility] [address] [id number] [place] [address]- 9392 03 Sep, 2014 [facility] [address] [id number] [place] [address]- 7884 19 Jul, 2014 [facility] [address] [id number] [place] [address]- 1971 19 Jul, 2014 [facility] [address] [id number] [place] [address]- 5228 16 Jul, 2014 [facility] [address] [id number] [place] [address]- 7420 16 Jul, 2014 [facility] [address] [id number] [place] [address]- 7433 15 Jul, 2014 [facility] [address] [id number] [place] [address]- 0673 15 Jul, 2014 [facility] [address] [id number] [place] [address]- 2596 13 Jul, 2014 [facility] [address] [id number] [place] [address]- 5428 13 Jul, 2014 [facility] [address] [id number] [place] [address]- 1300 Jun, [facility] [place] [facility] [address] [id number] [place] [address]- 7697 Jun, [facility] [place] [facility] [address] [id number] [place] [address]- 4566 Jun, [facility] [place] [facility] [address] [id number] [place] [address]- 7309 Jun, [facility] [place] [facility] [address] [id number] [place] [address]- 3456 Jun, [facility] [place] [facility] [address] [id number] [place] [address]- 3912 Jun, [facility] [place] [facility] [address] [id number] [place] 2149 Apr, [facility] [place] [facility] [address] [id number] [place] [address]- 3717 Apr, [facility] [place] [facility] [address] [id number] [place] 4685 Mar, [facility] [place] [facility] [address] [id number] [place] [address]- 9664 Mar, [facility] [place] [facility] [address] [id number] [place] [address]- 8845 Feb, [facility] [place] [facility] [address] [id number] [place] [address]- 5849 Feb, [facility] [place] [facility] [address] [id number] [place] [address]- 5462 Jan, [facility] [place] [facility] [address] [id number] [place] [address]- 1213 Jan, [facility] [place] [facility] [address] [id number] [address]- 4906 Jan, [facility] [place] [facility] [address] [id number], [place] [address]- 8865 Jan, [facility] [place] [facility] [address] [id number] [place] [address]- 8580 Jan, [facility] [place] [facility] [address] [id number] [place] [address]- 4474 Dec, [facility] [place] [facility] [address] [id number] [place] [address]- 6021 Dec, [facility] [place] [facility] [address] [id number], [place] [address]- 2038 Dec, [facility] [place] [facility] [address] [id number] [place] [address]- 1980 Dec, [facility] [place] [facility] [address] [facility] [id number] [place] [address]- 6722 November, [facility] [place] [facility] [address] [facility] [id number] [place] [address]- 4765 November, [facility] [place] [facility] [address] [facility] [id number] [place] [address]- 2428 Oct, [facility] [place] [facility] [address] [facility] [id number] [place] [address]- 0911 Oct, [facility] [place] [facility] [address] [facility] [id number] [place] [address]- 8693 Sep, [facility] [place] [facility] [address] [facility] [id number] [place] [address]- 3523 Sep, [facility] [place] [facility] [address] [facility] [id number] [place] [address]- 1907 Sep, [facility] [place] [facility] [address] [facility] [id number] [place] [address]- 7467 Sep, [facility] [place] [facility] [address] [facility] [id number] [place] [address]- 2715 Aug, [facility] [place] [facility] [address] [facility] [id number] [place] [address]- 9490 Aug, [facility] [place] [facility] [address] [facility] [id number] [place] [address]- 5557 Aug, [facility] [place] [facility] [address] [id number] [place] [address]- 9239 Aug, [facility] [place] [facility] [address] [facility] [id number] [place] [address]- 4356 Aug, [facility] [place] [facility] [address] [facility] [id number] [place] [address]- 3654 Aug, [facility] [place] [facility] [address] [id number] [place] [address]- 7963 Jul, [facility] [address] [id number] [place] [address]- 2744 Jul, [facility] [place] [facility] [address] [id number] [place] [address]- 5967 Jul, [facility] [place] [facility] [address] [id number] [place] [address]- 2706 Jul, [facility] [address] [id number] [place] [address]- 2310 Jul, [facility] [place] [facility] [address] [id number] [place] [address]- 6732 Jul, [facility] [address] [id number] [place] [address]- 7125 Jul, [facility] [address] [id number] [place] [address]- 9784 Jul, [facility] [place] [facility] [address] [id number] [place] [address]- 6097 Jun, [facility] [place] [facility] [address] [id number] [place] 3098 Jun, [facility] [place] [facility] [address] [id number] [place] [address]- 8697 Jun, [facility] [place] [facility] [address] [id number], [place] [address]- 6246 Jun, [facility] [place] [facility] [address] [id number] [place] [address]- 3863 Jun, [facility] [place] [facility] [address] [id number] [place] [address]- 5506 Jun, [facility] [place] [facility] [address] [id number] [place] [address]- 6631 May, [facility] [place] [facility] [address] [id number], [place] [address]- 6513 May, [facility] [place] [facility] [address] [id number] [place] [address]- 2008 May, [facility] [place] [facility] [address] [id number] [place] [address]- 2217 May, [facility] [place] [facility] [address] [id number] [place] [address]- 6711 Apr, [facility] [place] [facility] [address] [id number] [place] [address]- 5411 Apr, [facility] [place] [facility] [address] [id number] [place] [address]- 3531 Apr, [facility] [place] [facility] [address] [id number] [place] [address]- 6946 Apr, [facility] [place] [facility] [address] [id number] [place] [address]- 4550 25 Mar, 2013 [facility] [place] [facility] [address] [id number] [place] [address]- 6100 23 Mar, 2013 [facility] [place] [facility] [address] [id number] [place] [address]- 3947 16 Mar, 2013 [facility] [place] [facility] [address] [id number] [place] [address]- 7449 12 Mar, 2013 [facility] [place] [facility] [address] [id number] [place] [address]- 9457 09 Mar, 2013 [facility] [place] [facility] [address] [id number] [place] [address]- 0328 Mar, [facility] [place] [facility] [address] [id number] [place] [address]- 3683 Feb, [facility] [place] [facility] [address] [id number] [place] [address]- 1350 Feb, [facility] [place] [facility] [address] [id number] [place] [address]- 7207 Feb, [facility] [place] [facility] [address] [id number] [place] [address]- 5453 Feb, [facility] [address] [id number] [place] [address]- 4012 Jan, [facility] [place] [facility] [address] [id number] [place] [address] 2546 Dec, [facility] [place] [facility] [address] [id number] [place] [address]- 8206 November, [facility] [place] [facility] [address] [id number] [place] [address]- 2996 Sep, [facility] [place] [facility] [address] [id number] [place] [address]- 0906 Aug, [facility] [place] [facility] [address] [id number] [place] [address] Aug, [facility] [place] [facility] [address] [id number] [place] [address] Jul, [facility] [address] [id number] [place] [address] Jul, [facility] [address] [id number] [place] [address] Jun, [facility] [address] [id number] [place] [address] Jun, [facility] [place] [facility] [address] [id number] [place] [address] Jun, [facility] [place] [facility] [address] [id number] [place] [address] Jun, [facility] [place] [facility] [address] [id number] [place] [address] Jun, [facility] [place] [facility] [address] [id number] [place] [address] Jun, [facility] [place] [facility] [address] [id number] [place] [address] 30 May, 2012 [facility] [place] [facility] [address] [id number] [place] [address] 29 May, 2012 [facility] [place] [facility] [address] [id number] [place] [address] 28 May, 2012 [facility] [place] [facility] [address] [id number] [place] [address] 28 May, 2012 [facility] [place] [facility] [address] [id number] [place] [address] May, [facility] [place] [facility] [address] [id number] [place] [address] 27 May, 2012 [facility] [place] [facility] [address] [id number] [place] [address] 15 May, 2012 [facility] [place] [facility] [address] [id number] [place] [address] 15 May, 2012 [facility] [place] [facility] [address] [id number], [place] [address] 14 May, 2012 [facility] [place] [facility] [address] [id number] [place] [address] 14 May, 2012 [facility] [place] [facility] [address] [facility] [id number] [place] [address] 12 May, 2012 [facility] [place] [facility] [address] [id number], [place] [address] 12 May, 2012 [facility] [place] [facility] [address] [id number], [place] [address] 10 May, 2012 [facility] [place] [facility] [address] [id number] [place] [address] 10 May, 2012 [facility] [place] [facility] [address] [id number], [place] [address] 08 May, 2012 [facility] [place] [facility] [address] [id number], [place] [address] 26 Apr, 2012 [facility] [place] [facility] [address] [id number] [place] [address] Apr, [facility] [place] [facility] [address] [id number] [place] [address] Apr, [facility] [place] [facility] [address] [id number] [place] [address] Apr, [facility] [place] [facility] [address] [id number] [place] [address] Apr, [facility] [place] [facility] [address] [id number] [place] [address] Apr, [facility] [place] [facility] [address] [id number] [place] [address] Apr, [facility] [place] [facility] [address] [id number] [place] [address] Apr, [facility] [place] [facility] [address] [id number] [place] [address] Apr, [facility] [place] [facility] [address] [id number] [place] [address] Apr, [facility] [place] [facility] [address] [id number] [place] [address] 25 Mar, 2012 [facility] [place] [facility] [address] [id number] [place] [address] 24 Mar, 2012 [facility] [place] [facility] [address] [id number] [place] [address] 14 Mar, 2012 [facility] [place] [facility] [address] [id number] [place] [address] 04 Mar, 2012 [facility] [place] [facility] [address] [id number] [place] [address] Feb, [facility] [place] [facility] [address] [id number] [place] [address] Feb, [facility] [place] [facility] [address] [id number] [place] [address] 15 Feb, 2012 [facility] [address] [id number] [address] Feb, [facility] [address] [id number] [address] Feb, [facility] [id number] [address] November, [facility] [id number] [place] [address] Aug, [facility] [id number] [address] May, [facility] [id number] [address] May, [facility] [id number] [address] Apr, [facility] [id number] [address] Mar, IMMUNIZATIONS No Known Immunizations SOCIAL HISTORY Never Assessed REASON FOR VISIT Controlled Medication Refill PLAN OF CARE VITAL SIGNS MEDICATIONS Medication Instructions Dosage Frequency Start Date End Date Duration Status Hydrocodone-Acetaminophen 5-325 MG Orally every 6 hrs 1 tablet as needed 6h Jan, 28 days Active RESULTS No Results PROCEDURES [...] Hospitalization History Resp distress with hypoxia, pulmonary fibrosis-[facility] 08/03/16 Hospitalization History Shortness of breath 04/2017
--- OUTSIDE RECORDS SUMMARY | 2017-12-21 17:05 | XMS REPORT ---
Author Author GENEVIEVE JOSE F [facility] Address [address] [place] [address] Care Team Providers Care It Senior Analyst Name Role Phone GENEVIEVESANTOSHJOSE F Unavailable PROBLEMS Type Condition ICD9-CM Code QML30-QM Code Onset Dates Condition Status SNOMED Code Problem Psoriasis L40.9 Active 3885478 Problem 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 Active 915905906 Problem Vision loss, left eye H54.62 Active 82743912 Problem Primary insomnia F51.01 Active 4297220 Problem Other elevated white blood cell (WBC) count D72.828 Active 233505456 Problem Essential hypertension I10 Active 03764342 Problem Hematochezia K92.1 Active 455809475 Problem Type 2 diabetes mellitus with hyperglycemia, without long-term current use of insulin E11.65 Active 69294260 Problem Tobacco use Z72.0 Active 266872165 Problem Renal cyst, right N28.1 Active 63079420 Problem Idiopathic pulmonary fibrosis J84.112 Active 693345850 Problem Chronic obstructive pulmonary disease, unspecified J44.9 Active 08591626 Problem Lactic acidosis E87.2 Active 64850130 Problem Hyperlipidemia E78.5 Active 32151336 ALLERGIES No Information ENCOUNTERS Encounter Location Date Diagnosis [facility] [id number] [address] November, [facility] [id number] [address] Oct, 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 [facility] [id number] [place] [address] 56342- 7464 Oct, [facility] [id number] [address] Oct, 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 [facility] [id number] [place] [address] 24954- 8247 Oct, 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 ; Type 2 diabetes mellitus with hyperglycemia, without long-term current use of insulin E11.65 ; Hyperlipidemia E78.5 and Other elevated white blood cell (WBC) count D72.828 [place] [facility] [address] [address]- [address] Oct, Chronic obstructive pulmonary disease, unspecified J44.9 [facility] [facility] [address] [address]- 7419 Oct, 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 [facility] [facility] [address] [address]- 6026 Oct, Type 2 diabetes mellitus with hyperglycemia, without long- term current use of insulin E11.65 [facility] [facility] [address] [address]- [address] Sep, [place] [facility] [address] [address]878- 5399 Sep, Visit for TB skin test Z11.1 ; 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 and Psoriasis L40.9 [facility] [id number] [place] [address] 71905- 6878 Sep, Type 2 diabetes mellitus with hyperglycemia, without long- term current use of insulin E11.65 ; 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 ; Hyperlipidemia E78.5 ; Essential hypertension I10 ; Other elevated white blood cell (WBC) count D72.828 ; Primary insomnia F51.01 and Tobacco use Z72.0 [place] [address] [address]- 9271 Sep, [facility] [facility] [address] [address]- 2155 Aug, Type 2 diabetes mellitus with hyperglycemia, without long- term current use of insulin E11.65 and Hyperlipidemia E78.5 [facility] [address] [address] Jul, [facility] [id number] [place] [address] 19196- 1688 Jul, 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 [facility] [id number] [place] [address] 12134- 3945 Jul, 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 [facility] [id number] [place] [address] 00199- 6078 Jun, Essential hypertension I10 and Hyperlipidemia E78.5 [facility] [facility] [id number] [place] [address] 12955- 9223 Jun, Chronic obstructive pulmonary disease, unspecified J44.9 [facility] [id number] [place] [address] 61208- 5264 Jun, [facility] [facility] [id number] [place] [address] 70962- 7248 May, Type 2 diabetes mellitus without complication E11.9 ; 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 ; Psoriasis L40.9 and Essential hypertension I10 [facility] [id number] [place] [address] [id number] May, Dental examination Z01.20 and Dental caries K02.9 [place] [id number] [place] [address] 03424- 0696 Apr, Type 2 diabetes mellitus without complication E11.9 ; Type 2 diabetes mellitus with hyperglycemia, without long-term current use of insulin E11.65 ; Idiopathic pulmonary fibrosis J84.112 ; Essential hypertension I10 ; Tobacco use Z72.0 ; 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 ; Hyperlipidemia E78.5 and Chronic obstructive pulmonary disease, unspecified J44.9 [place] [id number] [place] [address] 04527- 1878 Apr, Dental examination Z01.20 [facility] [address], [place] [address] 2845 Apr, [facility] [address], [place] [address]- 9282 Apr, [facility] [address], [place] [address]- 2801 Apr, [facility] [id number] [place] [address] 85859- 9341 Apr, [facility] [address], [place] [address]- 8146 Apr, [facility] [id number] [place] [address] 15227- 1670 Apr, Type 2 diabetes mellitus without complication E11.9 and Essential hypertension I10 [facility] [id number] [address]- 6434 Mar, [facility] [address], [place] [address]- 4410 Mar, 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 [facility] [id number] [place] [address] 69909- 5428 Mar, Type 2 diabetes mellitus without complication E11.9 ; Essential hypertension I10 and Hyperlipidemia E78.5 [facility] [address], [place] [address]- 8354 Mar, 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 [facility] [address], [place] [address]- 6903 Mar, [facility] [id number] [place] [address] 88409- 7111 Mar, Hyperlipidemia E78.5 ; Essential hypertension I10 and Type 2 diabetes mellitus without complication E11.9 [facility] [address], [place] [address]- 7094 Feb, 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 and Essential hypertension I10 [facility] [address] [place] [address] 31421- 5077 Jan, 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 [facility] [address], [place] [address]- [address] Dec, 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 [facility] [id number] [place] [address] 47072- 6516 Dec, [facility] [id number] [place] [address] 42854- 1435 November, 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 and Psoriasis L40.9 [facility] [id number] [place] [address] 08033- 8723 November, Hyperlipidemia E78.5 [facility] [id number] [place] [address] 31905- 3041 November, Type 2 diabetes mellitus without complication E11.9 [facility] [id number] [place] [address] 77706- 3371 November, [facility] [id number] [place] [address] 94134- 7755 November, 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 ; Hyperlipidemia E78.5 ; Type 2 diabetes mellitus without complication E11.9 ; Idiopathic pulmonary fibrosis J84.112 and Tobacco use Z72.0 [facility] [address], [place] [address]- 1098 Oct, Essential hypertension I10 and 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 [facility] [address], [place] [address]- 8181 Sep, 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 and Psoriasis L40.9 [facility] [id number] [place] [address] 89531- 9836 Jul, 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 [id number] [place] [address] 94033- 1881 Jul, Idiopathic pulmonary fibrosis J84.112 [facility] [place] [id number] [place] [id number] Jul, [address] [address]- 9333 Jul, Idiopathic pulmonary fibrosis J84.[address] 56362- 9259 Jul, Idiopathic pulmonary fibrosis J84.112 and Hypoxia R09.02 [id number] [place] [address] 84103- 2773 Jul, Cough R05 and Idiopathic pulmonary fibrosis J84.112 [id number] [place] [address] 69032- 7274 Apr, Type 2 diabetes mellitus without complication E11.9 ; 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 ; Psoriasis L40.9 ; Hyperlipidemia E78.5 ; Idiopathic pulmonary fibrosis J84.112 and Essential hypertension I10 [id number] [place] [address] 69127- 2637 Feb, [id number] [place] [address] 70078- 7003 Feb, [id number] [place] [address] 77611- 4298 Dec, Right ankle gives way M25.[address] 32299- 8718 November, [id number] [place] [address] 98277- 6588 November, Wrist pain, left M25.[address] 22959- 6387 Sep, Psoriasis L40.9 [facility] [id number] [place] [address] 28698- 9807 Sep, COPD exacerbation J44.1 [facility] [id number] [place] [address] 17459- 0388 15 Aug, 2015 [facility] [id number] [place] [address] 01787- 7394 Aug, 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 and Hyperlipidemia E78.5 [facility] [id number] [place] [address] 44009- 6156 Aug, [facility] [id number] [place] [address] 33086- 2389 Aug, Psoriasis L40.9 ; 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 and Essential hypertension I10 [facility] [id number] [place] [address] 75694- 3210 Jul, [facility] [id number] [place] [address] 89898- 3335 Jul, [facility] [id number] [place] [address] 89924- 8904 Jul, Type 2 diabetes mellitus without complication E11.9 ; Hyperlipidemia E78.5 and 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 [facility] [id number] [place] [address] 48943- 3912 Jun, [facility] [id number] [place] [address] 49941- 5222 Apr, [facility] [id number] [place] [address] 62181- 0121 Mar, [facility] [id number] [place] [address] 02871- 1035 Mar, [facility] [id number] [place] [address] 39768- 7372 Mar, Rheumatoid arthritis 714.0 ; Other psoriasis 696.1 and Cellulitis, axillary fold 682.3 [facility] [address], [place] [address]- 3086 Jan, [facility] [id number], [place] [address]- 5206 Dec, [facility] [id number] [place] [address] 04689- 3825 Dec, Other and unspecified hyperlipidemia 272.4 ; Other psoriasis 696.1 and Diabetes mellitus without mention of complication, type II or unspecified type, not stated as uncontrolled 250.00 [facility] [address] [address] 0767 Dec, [facility] [id number] [place] [address] 46082- 3767 November, [facility] [address], [place] [address]- 8878 Oct, [facility] [address], [place] [address]- 8536 Oct, [facility] [address] [address] 1153 Sep, [facility] [address], [place] [address]- 0711 Sep, [facility] [address] [address] 1305 Sep, [facility] [address], [place] [address]- 8257 Sep, [facility] [address] 4075 Sep, [facility] [address], [place] [address]- 4117 Sep, [facility] [address] [address]- 2892 13 Sep, 2014 [facility] [address] [id number] [place] [address]- 7187 13 Sep, 2014 [facility] [place] [facility] [address] [id number] [place] [address]- 5936 03 Sep, 2014 [facility] [address] [id number] [place] [address]- 0016 03 Sep, 2014 [facility] [address] [id number] [place] [address]- 7785 19 Jul, 2014 [facility] [address] [id number] [place] [address]- 3124 19 Jul, 2014 [facility] [address] [id number] [place] [address]- 1215 16 Jul, 2014 [facility] [address] [id number] [place] [address]- 1979 16 Jul, 2014 [facility] [address] [id number] [place] [address]- 0427 15 Jul, 2014 [facility] [address] [id number] [place] [address]- 6417 15 Jul, 2014 [facility] [address] [id number] [place] [address]- 2546 13 Jul, 2014 [facility] [address] [id number] [place] [address]- 7942 13 Jul, 2014 [facility] [address] [id number] [place] [address]- 1002 Jun, [facility] [place] [facility] [address] [id number] [place] [address]- 7620 Jun, [facility] [place] [facility] [address] [id number] [place] [address]- 2144 Jun, [facility] [place] [facility] [address] [id number] [place] [address]- 5051 Jun, [facility] [place] [facility] [address] [id number] [place] [address]- 6538 Jun, [facility] [place] [facility] [address] [id number] [place] [address]- 4333 Jun, [facility] [place] [facility] [address] [id number] [place] 6988 Apr, [facility] [place] [facility] [address] [id number] [place] [address]- 2182 Apr, [facility] [place] [facility] [address] [id number] [place] 1958 Mar, [facility] [place] [facility] [address] [id number] [place] [address]- 0713 Mar, [facility] [place] [facility] [address] [id number] [place] [address]- 0057 Feb, [facility] [place] [facility] [address] [id number] [place] [address]- 7253 Feb, [facility] [place] [facility] [address] [id number] [place] [address]- 0295 Jan, [facility] [place] [facility] [address] [id number] [place] [address]- 5328 Jan, [facility] [place] [facility] [address] [id number], [place] [address]- 7750 Jan, [facility] [place] [facility] [address] [id number], [place] [address]- 3747 Jan, [facility] [place] [facility] [address] [id number] [place] [address]- 0695 Jan, [facility] [place] [facility] [address] [id number] [place] [address]- 2793 Dec, [facility] [place] [facility] [address] [id number] [place] [address]- 5019 Dec, [facility] [place] [facility] [address] [id number], [place] [address]- 1609 Dec, [facility] [place] [facility] [address] [id number] [place] [address]- 9881 Dec, [facility] [place] [facility] [address] [facility] [id number] [place] [address]- 7899 November, [facility] [place] [facility] [address] [facility] [id number] [place] [address]- 8312 November, [facility] [place] [facility] [address] [facility] [id number] [place] [address]- 7221 Oct, [facility] [place] [facility] [address] [facility] [id number] [place] [address]- 7133 Oct, [facility] [place] [facility] [address] [facility] [id number] [place] [address]- 4852 Sep, [facility] [place] [facility] [address] [facility] [id number] [place] [address]- 4298 Sep, [facility] [place] [facility] [address] [facility] [id number] [place] [address]- 2111 Sep, [facility] [place] [facility] [address] [facility] [id number] [place] [address]- 2036 Sep, [facility] [place] [facility] [address] [facility] [id number] [place] [address]- 9669 Aug, [facility] [place] [facility] [address] [facility] [id number] [place] [address]- 9034 Aug, [facility] [place] [facility] [address] [facility] [id number] [place] [address]- 6432 Aug, [facility] [place] [facility] [address] [id number] [place] [address]- 2556 Aug, [facility] [place] [facility] [address] [facility] [id number] [place] [address]- 9776 Aug, [facility] [place] [facility] [address] [facility] [id number] [place] [address]- 9261 Aug, [facility] [place] [facility] [address] [id number] [place] [address]- 8199 Jul, [facility] [address] [id number] [place] [address]- 4190 Jul, [facility] [place] [facility] [address] [id number] [place] [address]- 6996 Jul, [facility] [place] [facility] [address] [id number] [place] [address]- 1616 Jul, [facility] [address] [id number] [place] [address]- 9960 Jul, [facility] [place] [facility] [address] [id number] [place] [address]- 4194 Jul, [facility] [address] [id number] [place] [address]- 0062 Jul, [facility] [address] [id number] [place] [address]- 8447 Jul, [facility] [place] [facility] [address] [id number] [place] [address]- 1988 Jun, [facility] [place] [facility] [address] [id number] [place] 7359 Jun, [facility] [place] [facility] [address] [id number] [place] [address]- 9991 Jun, [facility] [place] [facility] [address] [id number], [place] [address]- 1702 Jun, [facility] [place] [facility] [address] [id number] [place] [address]- 1222 Jun, [facility] [place] [facility] [address] [id number] [place] [address]- 8356 Jun, [facility] [place] [facility] [address] [id number] [place] [address]- 1315 May, [facility] [place] [facility] [address] [id number], [place] [address]- 8252 May, [facility] [place] [facility] [address] [id number] [place] [address]- 5399 May, [facility] [place] [facility] [address] [id number] [place] [address]- 2166 May, [facility] [place] [facility] [address] [id number] [place] [address]- 6232 Apr, [facility] [place] [facility] [address] [id number] [place] [address]- 8412 Apr, [facility] [place] [facility] [address] [id number] [place] [address]- 8260 Apr, [facility] [place] [facility] [address] [id number] [place] [address]- 9076 Apr, [facility] [place] [facility] [address] [id number] [place] [address]- 5369 25 Mar, 2013 [facility] [place] [facility] [address] [id number] [place] [address]- 9849 23 Mar, 2013 [facility] [place] [facility] [address] [id number] [place] [address]- 4964 16 Mar, 2013 [facility] [place] [facility] [address] [id number] [place] [address]- 2518 12 Mar, 2013 [facility] [place] [facility] [address] [id number] [place] [address]- 7867 09 Mar, 2013 [facility] [place] [facility] [address] [id number] [place] [address]- 1384 Mar, [facility] [place] [facility] [address] [id number] [place] [address]- 6170 Feb, [facility] [place] [facility] [address] [id number] [place] [address]- 7996 Feb, [facility] [place] [facility] [address] [id number] [place] [address]- 0208 Feb, [facility] [place] [facility] [address] [id number] [place] [address]- 1405 Feb, [facility] [address] [id number] [place] [address]- 7731 Jan, [facility] [place] [facility] [address] [id number] [place] [address] 2546 Dec, [facility] [place] [facility] [address] [id number] [place] [address]- 9396 November, [facility] [place] [facility] [address] [id number] [place] [address]- 0080 Sep, [facility] [place] [facility] [address] [id number] [place] [address] Aug, [facility] [place] [facility] [address] [id number] [place] [address] Aug, [facility] [place] [facility] [address] [id number] [place] [address] Jul, [facility] [address] [id number] [place] [address] Jul, [facility] [address] [id number] [place] [address] Jun, [facility] [address] [id number] [place] [address] Jun, [facility] [place] [facility] [address] [id number] [place] [address] Jun, [facility] [place] [facility] [address] [id number] [place] [address] Jun, [facility] [place] [facility] [address] [id number] [place] [address] Jun, [facility] [place] [facility] [address] [id number] [place] [address] Jun, [facility] [place] [facility] [address] [id number] [place] [address] 30 May, 2012 [facility] [place] [facility] [address] [id number] [place] [address] 29 May, 2012 [facility] [place] [facility] [address] [id number] [place] [address] 28 May, 2012 [facility] [place] [facility] [address] [id number] [place] [address] 28 May, 2012 [facility] [place] [facility] [address] [id number] [place] [address]- [address] May, [facility] [place] [facility] [address] [id number] [place] [address] 27 May, 2012 [facility] [place] [facility] [address] [id number] [place] [address] 15 May, 2012 [facility] [place] [facility] [address] [id number] [place] [address]- [address] 15 May, 2012 [facility] [place] [facility] [address] [id number], [place] [address] 14 May, 2012 [facility] [place] [facility] [address] [id number] [place] [address] 14 May, 2012 [facility] [place] [facility] [address] [facility] [id number] [place] [address] 12 May, 2012 [facility] [place] [facility] [address] [id number], [place] [address] 12 May, 2012 [facility] [place] [facility] [address] [id number], [place] [address] 10 May, 2012 [facility] [place] [facility] [address] [id number] [place] [address]- [address] 10 May, 2012 [facility] [place] [facility] [address] [id number], [place] [address] 08 May, 2012 [facility] [place] [facility] [address] [id number], [place] [address] 26 Apr, 2012 [facility] [place] [facility] [address] [id number] [place] [address] Apr, [facility] [place] [facility] [address] [id number] [place] [address]- [address] Apr, [facility] [place] [facility] [address] [id number] [place] [address] Apr, [facility] [place] [facility] [address] [id number] [place] [address] Apr, [facility] [place] [facility] [address] [id number] [place] [address] Apr, [facility] [place] [facility] [address] [id number] [place] [address] Apr, [facility] [place] [facility] [address] [id number] [place] [address] Apr, [facility] [place] [facility] [address] [id number] [place] [address] Apr, [facility] [place] [facility] [address] [id number] [place] [address] Apr, [facility] [place] [facility] [address] [id number] [place] [address] 25 Mar, 2012 [facility] [place] [facility] [address] [id number] [place] [address] 24 Mar, 2012 [facility] [place] [facility] [address] [id number] [place] [address] 14 Mar, 2012 [facility] [place] [facility] [address] [id number] [place] [address] 04 Mar, 2012 [facility] [place] [facility] [address] [id number] [place] [address] Feb, [facility] [place] [facility] [address] [id number] [place] [address] Feb, [facility] [place] [facility] [address] [id number] [place] [address] 15 Feb, 2012 [facility] [address] [id number] [address] Feb, [facility] [id number] [address] Feb, [facility] [id number] [address] November, [facility] [id number] [place] [address] Aug, [facility] [id number] [place] [address] May, [facility] [id number] [place] [address] May, [facility] [id number] [address] Apr, [facility] [id number], [place] [address] Mar, IMMUNIZATIONS No Known Immunizations SOCIAL HISTORY Never Assessed REASON FOR VISIT paperwork PLAN OF CARE VITAL SIGNS MEDICATIONS Unknown [...] Resp distress with hypoxia, pulmonary fibrosis-[facility] 08/03/16 Hospitalization History Shortness of breath 04/2017
--- OUTSIDE RECORDS SUMMARY | 2017-12-21 17:06 | XMS REPORT ---
Author Author ZAHRAA MATHEW [facility] Address [address] [place] [address] Care Team Providers Care Wilderness Guide Name Role Phone ZAHRAA MATHEW Unavailable PROBLEMS Type Condition ICD9-CM Code WYH22-DD Code Onset Dates Condition Status SNOMED Code Problem Psoriasis L40.9 Active 9859285 Problem 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 Active 554545912 Problem Vision loss, left eye H54.62 Active 20359673 Problem Primary insomnia F51.01 Active 2964239 Problem Other elevated white blood cell (WBC) count D72.828 Active 426442520 Problem Essential hypertension I10 Active 16107607 Problem Hematochezia K92.1 Active 797849550 Problem Type 2 diabetes mellitus with hyperglycemia, without long-term current use of insulin E11.65 Active 02068458 Problem Tobacco use Z72.0 Active 994949575 Problem Renal cyst, right N28.1 Active 91808331 Problem Idiopathic pulmonary fibrosis J84.112 Active 591022362 Problem Chronic obstructive pulmonary disease, unspecified J44.9 Active 30366056 Problem Lactic acidosis E87.2 Active 31140104 Problem Hyperlipidemia E78.5 Active 81504500 ALLERGIES No Information ENCOUNTERS Encounter Location Date Diagnosis [facility] [id number] [place] [address] 45148- 9490 November, 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 [facility] [address] [address] 9416 November, 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 [facility] [id number] [place] [address] 95218- 8156 Oct, 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 [facility] [id number] [place] [address] 06244- 3273 Oct, [facility] [id number] [place] [address] 79886- 2684 Oct, 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 [facility] [id number] [place] [address] 91369- 0564 Oct, 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 ; Type 2 diabetes mellitus with hyperglycemia, without long-term current use of insulin E11.65 ; Hyperlipidemia E78.5 and Other elevated white blood cell (WBC) count D72.828 [facility] [id number] [place] [address] 13867- 7896 Oct, Chronic obstructive pulmonary disease, unspecified J44.9 [facility] [id number] [place] [address] 86268- 5728 Oct, 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 [facility] [id number] [place] [address] 97161- 3228 Oct, Type 2 diabetes mellitus with hyperglycemia, without long- term current use of insulin E11.65 [facility] [id number] [place] [address] 28533- 4963 Sep, [facility] [id number] [place] [address] 42379- 0418 Sep, 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 ; Visit for TB skin test Z11.1 and Psoriasis L40.9 [facility] [address] [place] [address] 69083- 1360 Sep, Type 2 diabetes mellitus with hyperglycemia, without long- term current use of insulin E11.65 ; 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 ; Hyperlipidemia E78.5 ; Essential hypertension I10 ; Other elevated white blood cell (WBC) count D72.828 ; Primary insomnia F51.01 and Tobacco use Z72.0 [facility] [id number] [place] [address] 80134- 0280 Sep, [facility] [address] [place] [address] 49161- 9105 Aug, Type 2 diabetes mellitus with hyperglycemia, without long- term current use of insulin E11.65 and Hyperlipidemia E78.5 [facility] [id number] [place] [address] 40085- 8043 Jul, [facility] [id number] [place] [address] 69347- 5232 Jul, 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 [facility] [id number] [place] [address] 563780- 5671 Jul, 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 [facility] [id number] [place] [address] 92927- 2026 Jun, Essential hypertension I10 and Hyperlipidemia E78.5 [facility] [id number] [place] [address] 22317- 7768 Jun, Chronic obstructive pulmonary disease, unspecified J44.9 [facility] [id number] [place] [address] 50915- 7602 Jun, [facility] [id number] [place] [address] 61186- 4290 May, Type 2 diabetes mellitus without complication E11.9 ; Rheumatoid arthritis involving multiple sites with positive rheumatoid factor M05.79 ; Psoriasis L40.9 and Essential hypertension I10 [facility] [place] [facility] [address] [place] [address] [id number] May, Dental examination Z01.20 and Dental caries K02.9 [facility] [id number] [place] [address] 33595- 1981 Apr, Type 2 diabetes mellitus without complication E11.9 ; Type 2 diabetes mellitus with hyperglycemia, without long-term current use of insulin E11.65 ; Idiopathic pulmonary fibrosis J84.112 ; Essential hypertension I10 ; Tobacco use Z72.0 ; Rheumatoid arthritis involving multiple sites with positive rheumatoid factor M05.79 ; Hyperlipidemia E78.5 and Chronic obstructive pulmonary disease, unspecified J44.9 [facility] [address] [place] [address] 73473- 8368 Apr, Dental examination Z01.20 [facility] [address] [place] [address] 31935- 0688 Apr, [facility] [id number] [place] [address] 81488- 3386 Apr, [facility] [id number] [place] [address] 26560- 7010 Apr, [facility] [id number] [place] [address] 19156- 4225 Apr, [facility] [id number] [place] [address] 09553- 4299 Apr, [facility] [id number] [place] [address] 02799- 6750 Apr, Type 2 diabetes mellitus without complication E11.9 and Essential hypertension I10 [facility] [id number] [place] [address] 96152- 5549 Mar, [facility] [id number] [place] [address] 34999- 4337 Mar, Rheumatoid arthritis involving multiple sites with positive rheumatoid factor M05.79 [facility] [id number] [place] [address] 14363- 5058 Mar, Type 2 diabetes mellitus without complication E11.9 ; Essential hypertension I10 and Hyperlipidemia E78.5 [facility] [id number] [place] [address] 02744- 7393 Mar, Rheumatoid arthritis involving multiple sites with positive rheumatoid factor M05.79 [facility] [address] [place] [address] 53953- 2186 Mar, [facility] [id number] [place] [address] 29280- 9226 Mar, Hyperlipidemia E78.5 ; Essential hypertension I10 and Type 2 diabetes mellitus without complication E11.9 [facility] [address] [place] [address] 46703- 5072 Feb, Rheumatoid arthritis involving multiple sites with positive rheumatoid factor M05.79 and Essential hypertension I10 [facility] [address] [place] [address] 60138- 3080 Jan, Rheumatoid arthritis involving multiple sites with positive rheumatoid factor M05.79 [facility] [address] [id number] [place] [address] 01717- 1313 Dec, Rheumatoid arthritis involving multiple sites with positive rheumatoid factor M05.79 [facility] [id number] [place] [address] 90250- 7237 Dec, [facility] [id number] [place] [address] 68679- 0923 November, Rheumatoid arthritis involving multiple sites with positive rheumatoid factor M05.79 and Psoriasis L40.9 [facility] [address] [place] [address] 34836- 8733 November, Hyperlipidemia E78.5 [facility] [address] [place] [address] 53663- 4837 November, Type 2 diabetes mellitus without complication E11.9 [facility] [address] [place] [address] 95662- 3228 November, [facility] [address] [place] [address] 26041- 7227 November, Rheumatoid arthritis involving multiple sites with positive rheumatoid factor M05.79 ; Hyperlipidemia E78.5 ; Type 2 diabetes mellitus without complication E11.9 ; Idiopathic pulmonary fibrosis J84.112 and Tobacco use Z72.0 [facility] [address] [address]- 4225 Oct, Essential hypertension I10 and Rheumatoid arthritis involving multiple sites with positive rheumatoid factor M05.79 [facility] [id number] [place] [address] 22277- 6103 Sep, Rheumatoid arthritis involving multiple sites with positive rheumatoid factor M05.79 and Psoriasis L40.9 [facility] [address] 25907- 4981 Jul, Rheumatoid arthritis involving multiple sites with positive rheumatoid factor M05.79 [facility] [id number] [place] [address] 64360- 1482 Jul, Idiopathic pulmonary fibrosis J84.112 [facility] [address] [id number] Jul, [facility] [address] 89054- 3909 Jul, Idiopathic pulmonary fibrosis J84.112 [facility] [address] 64922- 3106 Jul, Idiopathic pulmonary fibrosis J84.112 and Hypoxia R09.02 [facility] [address] 64826- 9383 Jul, Cough R05 and Idiopathic pulmonary fibrosis J84.112 [facility] [address] 09429- 7002 Apr, Type 2 diabetes mellitus without complication E11.9 ; Rheumatoid arthritis involving multiple sites with positive rheumatoid factor M05.79 ; Psoriasis L40.9 ; Hyperlipidemia E78.5 ; Idiopathic pulmonary fibrosis J84.112 and Essential hypertension I10 [facility] [id number] [place] [address] 67891- 0840 Feb, [facility] [id number] [place] [address] 64415- 2430 Feb, [address] 60972- 2100 Dec, Right ankle gives way M25.371 [facility] [address] [id number] [place] [address] 46511- 5935 November, [facility] [address] [id number] [place] [address] 47910- 3475 November, Wrist pain, left M25.532 [facility] [address] 07504- 7123 Sep, Psoriasis L40.9 [facility] [address] [place] [address] [id number] [place] [address] 10559- 4320 Sep, COPD exacerbation J44.1 [facility] [address] 06006- 4295 Aug, [facility] [address] [address] [id number] [place] [address] 79135- 6424 Aug, Rheumatoid arthritis involving multiple sites with positive rheumatoid factor M05.79 and Hyperlipidemia E78.5 [facility] [address] [id number] [place] [address] 56144- 0640 Aug, [facility] [id number] [place] [address] 29625- 4331 Aug, Psoriasis L40.9 ; Rheumatoid arthritis involving multiple sites with positive rheumatoid factor M05.79 and Essential hypertension I10 [facility] [id number] [place] [address] 84807- 7247 Jul, [facility] [id number] [place] [address] 97834- 1554 Jul, [facility] [id number] [place] [address] 69919- 5139 Jul, Type 2 diabetes mellitus without complication E11.9 ; Hyperlipidemia E78.5 and Rheumatoid arthritis involving multiple sites with positive rheumatoid factor M05.79 [facility] [id number] [place] [address] 32949- 9637 Jun, [facility] [id number] [place] [address] 72744- 0115 Apr, [facility] [address] [id number] [place] [address] 22380- 1633 Mar, [facility] [address] [address]- 9748 Mar, [facility] [id number] [place] [address] 66972- 3876 Mar, Rheumatoid arthritis 714.0 ; Other psoriasis 696.1 and Cellulitis, axillary fold 682.3 [facility] [id number] [place] [address] 78707- 9894 Jan, [facility] [address] [place] [address] 269615- 7055 Dec, [facility] [id number] [place] [address] 474317- 4386 Dec, Other and unspecified hyperlipidemia 272.4 ; Other psoriasis 696.1 and Diabetes mellitus without mention of complication, type II or unspecified type, not stated as uncontrolled 250.00 [facility] [address] [place] [address] 50951- 2871 Dec, [facility] [address] 4794 November, [facility] [address] [address]- 7053 Oct, [facility] [address] [address]- 5388 Oct, [facility] [address] [place] [address]- 2638 Sep, [facility] [address]- 8561 Sep, [facility] [id number] [address]- 1856 Sep, [facility] [address] [place] [address]- 3255 Sep, [facility] [id number] [address]- 6000 13 Sep, 2014 [facility] [place] [facility] [address] [id number] [place] [address]- 8351 13 Sep, 2014 [facility] [place] [facility] [address] [id number] [place] [address]- 3285 13 Sep, 2014 [facility] [place] [facility] [address] [id number] [place] [address]- 0506 13 Sep, 2014 [facility] [place] [facility] [address] [id number] [place] [address]- 5170 03 Sep, 2014 [facility] [place] [facility] [address] [id number] [place] [address]- 9633 Sep, [facility] [place] [facility] [address] [id number] [place] [address]- 8567 Jul, [facility] [place] [facility] [address] [id number] [place] [address]- 7010 Jul, [facility] [place] [facility] [address] [id number] [place] [address]- 0030 16 Jul, 2014 [facility] [place] [facility] [address] [id number] [place] [address]- 1221 Jul, [facility] [place] [facility] [address] [id number] [place] [address]- 8081 Jul, [facility] [place] [facility] [address] [id number] [address]- 0523 Jul, [facility] [place] [facility] [address] [id number] [place] [address]- 9356 Jul, [facility] [place] [facility] [address] [id number] [place] [address]- 6126 Jul, [facility] [place] [facility] [address] [id number] [place] [address]- 2966 Jun, [facility] [place] [facility] [address] [id number] [place] [address]- 2289 Jun, [facility] [place] [facility] [address] [id number] [place] [address]- 2966 Jun, [facility] [place] [facility] [address] [id number] [place] [address]- 6345 Jun, [facility] [place] [facility] [address] [id number] [place] [address]- 3996 Jun, [facility] [place] [facility] [address] [id number] [place] [address]- 8829 Jun, [facility] [place] [facility] [address] [id number] [place] [address]- 3403 Apr, [facility] [place] [facility] [address] [id number] [place] [address]- 3857 Apr, [facility] [place] [facility] [address] [id number] [place] [address]- 3139 Mar, [facility] [place] [facility] [address] [id number] [place] [address]- 1940 Mar, [facility] [place] [facility] [address] [id number] [place] [address]- 1240 Feb, [facility] [place] [facility] [address] [id number] [place] [address]- 6980 Feb, [facility] [place] [facility] [address] [id number] [place] [address]- 2020 Jan, [facility] [place] [facility] [address] [id number] [place] [address]- 6358 Jan, [facility] [place] [facility] [address] [id number] [place] [address]- 2642 Jan, [facility] [place] [facility] [address] [id number] [place] [address]- 2516 Jan, [facility] [place] [facility] [address] [id number] [place] [address]- 2546 Jan, [facility] [place] [facility] [address] [id number] [place] [address]- 9508 Dec, [facility] [place] [facility] [address] [id number] [place] [address]- 8328 Dec, [facility] [place] [facility] [address] [id number] [place] [address]- 6768 Dec, [facility] [place] [facility] [address] [id number] [place] [address]- 3674 Dec, [facility] [place] [facility] [address] [id number] [place] [address]- 4624 November, [facility] [place] [facility] [address] [id number] [place] [address]- 5016 November, [facility] [place] [facility] [address] [id number] [place] [address]- 3284 Oct, [facility] [place] [facility] [address] [id number] [place] [address]- 6775 Oct, [facility] [place] [facility] [address] [id number] [place] [address]- 2793 Sep, [facility] [place] [facility] [address] [id number] [place] [address]- 9436 Sep, [facility] [place] [facility] [address] [id number] [place] [address]- 0295 Sep, [facility] [place] [facility] [address] [id number] [place] [address]- 5817 Sep, [facility] [place] [facility] [address] [id number] [place] [address]- 3151 Aug, [facility] [place] [facility] [address] [id number] [place] [address]- 3432 Aug, [facility] [place] [facility] [address] [id number] [place] 2542 Aug, [facility] [place] [facility] [address] [id number] [place] [address]- 2298 Aug, [facility] [place] [facility] [address] [id number] [place] [address]- 2934 Aug, [facility] [address] [id number] [place] [address]- 9806 Aug, [facility] [address] [id number] [place] [address]- 5926 Jul, [facility] [address] [id number] [place] [address]- 3426 Jul, [facility] [address] [id number] [place] [address]- 2205 Jul, [facility] [address] [id number] [place] [address]- 7327 Jul, [facility] [address] [id number] [place] [address]- 3511 Jul, [facility] [address] [id number] [place] [address]- 4673 Jul, [facility] [address] [id number] [place] [address]- 0674 Jul, [facility] [address] [id number] [place] [address]- 6540 Jul, [facility] [address] [id number] [place] [address]- 1543 Jun, [facility] [address] [id number] [place] [address]- 0423 Jun, [facility] [address] [id number] [place] [address]- 0200 Jun, [facility] [address] [id number] [place] [address]- 5025 Jun, [facility] [address] [id number] [place] [address]- 2546 Jun, [facility] [address] [id number] [place] [address]- 0744 Jun, [facility] [place] [facility] [address] [id number] [place] [address]- 1023 May, [facility] [place] [facility] [address] [id number] [place] [address]- 3294 May, [facility] [place] [facility] [address] [id number] [place] [address]- 7562 May, [facility] [place] [facility] [address] [id number] [place] [address]- 6081 May, [facility] [place] [facility] [address] [id number] [place] [address]- 0221 Apr, [facility] [place] [facility] [address] [id number] [place] [address]- 9902 Apr, [facility] [place] [facility] [address] [id number] [place] [address]- 0948 Apr, [facility] [place] [facility] [address] [id number], [place] [address]- 3252 Apr, [facility] [place] [facility] [address] [id number] [place] [address]- 9473 25 Mar, 2013 [facility] [place] [facility] [address] [id number], [place] [address]- 1540 23 Mar, 2013 [facility] [place] [facility] [address] [id number], [place] [address]- 2922 16 Mar, 2013 [facility] [place] [facility] [address] [id number], [place] [address]- 7987 12 Mar, 2013 [facility] [place] [facility] [address] [id number] [place] [address]- 7872 09 Mar, 2013 [facility] [place] [facility] [address] [id number], [place] [address]- 2769 04 Mar, 2013 [facility] [place] [facility] [address] [id number], [place] [address]- 3257 28 Feb, 2013 [facility] [place] [facility] [address] [id number][place] [address]- 1649 Feb, [facility] [address] [id number] [place] [address]- 7181 Feb, [facility] [place] [facility] [address] [id number] [place] [address]- 9440 Feb, [facility] [address] [id number] [place] [address]- 5310 Jan, [facility] [address] [id number] [place] [address] Dec, [facility] [address] [id number] [place] [address] November, [facility] [address] [id number] [place] [address] Sep, [facility] [address] [id number] [place] [address] Aug, [facility] [address] [id number] [place] [address] Aug, [facility] [address] [id number] [place] [address] Jul, [facility] [address] [facility] [id number] [place] [address] Jul, [facility] [address] [id number] [place] [address] Jun, [facility] [place] [facility] [address] [id number] [place] [address] Jun, [facility] [place] [facility] [address] [id number] [place] [address] Jun, [facility] [place] [facility] [address] [facility] [id number] [place] [address] [address] Jun, [facility] [place] [facility] [address] [id number] [place] [address] Jun, [facility] [place] [facility] [address] [id number] [place] [address] 06 Jun, 2012 [facility] [place] [facility] [address] [id number] [place] [address] 30 May, 2012 [facility] [place] [facility] [address] [id number] [place] [address] 29 May, 2012 [facility] [place] [facility] [address] [id number] [place] [address] 28 May, 2012 [facility] [place] [facility] [address] [id number] [place] [address] 28 May, 2012 [facility] [place] [facility] [address] [id number] [place] [address] May, [facility] [place] [facility] [address] [id number] [place] [address] 27 May, 2012 [facility] [place] [facility] [address] [id number] [place] [address] 15 May, 2012 [facility] [place] [facility] [address] [id number] [place] [address] 15 May, 2012 [facility] [place] [facility] [address] [id number] [place] [address] 14 May, 2012 [facility] [place] [facility] [address] [id number] [place] [address] 14 May, 2012 [facility] [place] [facility] [address] [id number] [place] [address] 12 May, 2012 [facility] [place] [facility] [address] [id number] [place] [address] 12 May, 2012 [facility] [place] [facility] [address] [id number] [place] [address] 10 May, 2012 [facility] [place] [facility] [address] [id number] [place] [address] 10 May, 2012 [facility] [place] [facility] [address] [id number] [place] [address] May, [facility] [place] [facility] [address] [id number] [place] [address] Apr, [facility] [place] [facility] [address] [id number] [place] [address] Apr, [facility] [place] [facility] [address] [id number] [place] [address] Apr, [facility] [place] [facility] [address] [id number] [place] [address] Apr, [facility] [place] [facility] [address] [id number] [place] [address] Apr, [facility] [place] [facility] [address] [id number] [place] [address] Apr, [facility] [place] [facility] [address] [id number] [place] [address] Apr, [facility] [place] [facility] [address] [id number] [place] [address] Apr, [facility] [place] [facility] [address] [id number] [place] [address] Apr, [facility] [place] [facility] [address] [id number] [place] [address] Apr, [facility] [place] [facility] [address] [id number], [place] [address] 25 Mar, 2012 [facility] [place] [facility] [address] [id number], [place] [address] 24 Mar, 2012 [facility] [place] [facility] [address] [id number] [place] [address] 14 Mar, 2012 [facility] [place] [facility] [address] [id number] [address] 04 Mar, 2012 [facility] [place] [facility] [address] [id number] [place] [address] Feb, [facility] [place] [facility] [address] [id number] [address] Feb, [facility] [address] [id number], [place] [address] Feb, [facility] [id number] [address] [address] Feb, [facility] [address] [id number] Feb, [facility] [id number] [address] November, [facility] [id number], [place] [address] Aug, [facility] [id number], [place] [address] May, [facility] [address], [place] [address] May, [facility] [address] [id number], [place] [address] Apr, [facility] [id number], [place] [address] Mar, IMMUNIZATIONS No Known Immunizations SOCIAL HISTORY Never Assessed REASON FOR VISIT Dental Assessment PLAN OF CARE Activity Details Follow Up prn Reason:dental exam VITAL SIGNS MEDICATIONS Unknown Medications RESULTS No Results PROCEDURES Procedure Date Ordered Result Body Site SCREENING OF A PATIENT May 30, 2017 Billing Notes on claim May 30, 2017 INSTRUCTIONS MEDICATIONS ADMINISTERED No [...] Hospitalization History Resp distress with hypoxia, pulmonary fibrosis-[facility] 08/03/16 Hospitalization History Shortness of breath 04/2017
--- OUTSIDE RECORDS SUMMARY | 2017-12-21 17:07 | XMS REPORT ---
Author Author GENEVIEVEJOSE F [facility] Address [address] [place] [address] Care Team Providers Care Wire Transfer Clerk Name Role Phone CINDY VALLEJOY Unavailable PROBLEMS Type Condition ICD9-CM Code MLZ38-QQ Code Onset Dates Condition Status SNOMED Code Problem Psoriasis L40.9 Active 9542316 Problem Rheumatoid arthritis involving multiple sites with positive rheumatoid factor M05.79 Active 234796902 Problem Vision loss, left eye H54.62 Active 63872277 Problem Primary insomnia F51.01 Active 1342953 Problem Other elevated white blood cell (WBC) count D72.828 Active 836689747 Problem Essential hypertension I10 Active 99283859 Problem Hematochezia K92.1 Active 969386352 Problem Type 2 diabetes mellitus with hyperglycemia, without long-term current use of insulin E11.65 Active 43093709 Problem Tobacco use Z72.0 Active 802214342 Problem Renal cyst, right N28.1 Active 45072776 Problem Idiopathic pulmonary fibrosis J84.112 Active 483213032 Problem Chronic obstructive pulmonary disease, unspecified J44.9 Active 21871374 Problem Lactic acidosis E87.2 Active 92032999 Problem Hyperlipidemia E78.5 Active 34927612 ALLERGIES No Information ENCOUNTERS Encounter Location Date Diagnosis [facility] [id number] [address] Oct, [facility] [address] [address] Sep, [facility] [address] [place] [address]- 3323 Sep, Rheumatoid arthritis involving multiple sites with positive rheumatoid factor M05.79 ; Visit for TB skin test Z11.1 and Psoriasis L40.9 [facility] [address] [place] [address]192- 6474 Sep, Type 2 diabetes mellitus with hyperglycemia, without long- term current use of insulin E11.65 ; Rheumatoid arthritis involving multiple sites with positive rheumatoid factor M05.79 ; Hyperlipidemia E78.5 ; Essential hypertension I10 ; Other elevated white blood cell (WBC) count D72.828 ; Primary insomnia F51.01 and Tobacco use Z72.0 [facility] [address] [address] Sep, [place] [address] [address] Aug, Type 2 diabetes mellitus with hyperglycemia, without long- term current use of insulin E11.65 and Hyperlipidemia E78.5 [place] [address] [address]- [address] Jul, [place] [address] [address]- [address] Jul, Rheumatoid arthritis involving multiple sites with positive rheumatoid factor M05.79 [place] [address] [address]- 46[address] Jul, Rheumatoid arthritis involving multiple sites with positive rheumatoid factor M05.79 [place] [address] [address]- [address] Jun, Essential hypertension I10 and Hyperlipidemia E78.5 [place] [id number] [place] [address] 97556- 6254 Jun, Chronic obstructive pulmonary disease, unspecified J44.9 [facility] [id number] [place] [address] 21491- 0165 Jun, [place] [address] [address]- [address]47 May, Type 2 diabetes mellitus without complication E11.9 ; Rheumatoid arthritis involving multiple sites with positive rheumatoid factor M05.79 ; Psoriasis L40.9 and Essential hypertension I10 [facility] [id number] [place] [id number] May, Dental examination Z01.20 and Dental caries K02.9 [facility] [address] [address] Apr, Type 2 diabetes mellitus without complication E11.9 ; Type 2 diabetes mellitus with hyperglycemia, without long-term current use of insulin E11.65 ; Idiopathic pulmonary fibrosis J84.112 ; Essential hypertension I10 ; Tobacco use Z72.0 ; Rheumatoid arthritis involving multiple sites with positive rheumatoid factor M05.79 ; Hyperlipidemia E78.5 and Chronic obstructive pulmonary disease, unspecified J44.9 [facility] [address] [place] [address] 15150- 4286 Apr, Dental examination Z01.20 [facility] [id number] [place] [address] 85289- 6060 Apr, [facility] [id number] [place] [address] 14082- 2476 Apr, [facility] [id number] [place] [address] 55327- 8819 Apr, [facility] [id number] [place] [address] 16534- 8685 Apr, [facility] [id number] [place] [address] 97946- 8811 Apr, [facility] [address] [address]- 66[address] Apr, Type 2 diabetes mellitus without complication E11.9 and Essential hypertension I10 [facility] [address] [address]- 74[address] Mar, [facility] [id number] [place] [address] 86177- 9794 Mar, Rheumatoid arthritis involving multiple sites with positive rheumatoid factor M05.79 [facility] [address] [address]- 5[address] Mar, Type 2 diabetes mellitus without complication E11.9 ; Essential hypertension I10 and Hyperlipidemia E78.5 [facility] [address] [address]- 5626 Mar, Rheumatoid arthritis involving multiple sites with positive rheumatoid factor M05.79 [facility] [address] [address]- 2[address] Mar, [facility] [address] [address]- 7406 Mar, Hyperlipidemia E78.5 ; Essential hypertension I10 and Type 2 diabetes mellitus without complication E11.9 [facility] [address] [address]- 3636 Feb, Rheumatoid arthritis involving multiple sites with positive rheumatoid factor M05.79 and Essential hypertension I10 [facility] [address] [place] [address] 01859- 0976 Jan, Rheumatoid arthritis involving multiple sites with positive rheumatoid factor M05.79 [place] [address] [place] [address] 96322- 5186 Dec, Rheumatoid arthritis involving multiple sites with positive rheumatoid factor M05.79 [facility] [address] [place] [address] 88341- 1056 Dec, [facility] [address] [address]- 6516 November, Rheumatoid arthritis involving multiple sites with positive rheumatoid factor M05.79 and Psoriasis L40.9 [facility] [address] [address]- 8835 November, Hyperlipidemia E78.5 [facility] [address] [address]- 0246 November, Type 2 diabetes mellitus without complication E11.9 [facility] [address] [address]- 5756 November, [facility] [address] [address]- 74[address] November, Rheumatoid arthritis involving multiple sites with positive rheumatoid factor M05.79 ; Hyperlipidemia E78.5 ; Type 2 diabetes mellitus without complication E11.9 ; Idiopathic pulmonary fibrosis J84.112 and Tobacco use Z72.0 [place] [id number] [place] [address] 56387- 1896 Oct, Essential hypertension I10 and Rheumatoid arthritis involving multiple sites with positive rheumatoid factor M05.79 [place] [id number] [place] [address] 79545- 0724 Sep, Rheumatoid arthritis involving multiple sites with positive rheumatoid factor M05.79 and Psoriasis L40.9 [place] [id number] [place] [address] 57633- 8627 Jul, Rheumatoid arthritis involving multiple sites with positive rheumatoid factor M05.79 [place] [id number] [place] [address] 97418- 4295 Jul, Idiopathic pulmonary fibrosis J84.112 [facility] [address] [id number] Jul, [facility] [id number] [place] [address] 90735- 2929 Jul, Idiopathic pulmonary fibrosis J84.112 [place] [id number] [place] [address] 21843- 3981 Jul, Idiopathic pulmonary fibrosis J84.112 and Hypoxia R09.02 [place] [id number] [place] [address] 67160- 9889 Jul, Cough R05 and Idiopathic pulmonary fibrosis J84.112 [place] [address] [place] [address] 03949- 5828 Apr, Type 2 diabetes mellitus without complication E11.9 ; Rheumatoid arthritis involving multiple sites with positive rheumatoid factor M05.79 ; Psoriasis L40.9 ; Hyperlipidemia E78.5 ; Idiopathic pulmonary fibrosis J84.112 and Essential hypertension I10 [facility] [address] [place] [address] 97454- 1416 Feb, [place] [address] [address]- 4738 Feb, [facility] [id number] [place] [address] 64827- 1613 Dec, Right ankle gives way M25.371 [facility] [id number] [place] [address] 04458- 4463 November, [facility] [id number] [place] [address] 52943- 6219 November, Wrist pain, left M25.532 [facility] [id number] [place] [address] 48367- 4900 Sep, Psoriasis L40.9 [facility] [id number] [place] [address] 75544- 0614 Sep, COPD exacerbation J44.1 [place] [id number] [place] [address] 59659- 3425 Aug, [facility] [id number] [place] [address] 00599- 5036 Aug, Rheumatoid arthritis involving multiple sites with positive rheumatoid factor M05.79 and Hyperlipidemia E78.5 [facility] [address] [place] [address] 15584- 7815 Aug, [facility] [address] [place] [address] 66827- 1733 Aug, Psoriasis L40.9 ; Rheumatoid arthritis involving multiple sites with positive rheumatoid factor M05.79 and Essential hypertension I10 [facility] [address] [address]- 0649 Jul, [facility] [id number] [place] [address] 10603- 3865 Jul, [facility] [address] [address]- 9584 Jul, Type 2 diabetes mellitus without complication E11.9 ; Hyperlipidemia E78.5 and Rheumatoid arthritis involving multiple sites with positive rheumatoid factor M05.79 [facility] [address] 9[address] Jun, [facility] [id number] [place] [address] 99600- 5756 Apr, [facility] [address] [address]- 1225 Mar, [facility] [id number] [place] [address] 26199- 6357 Mar, [facility] [id number] [place] [address] 77108- 0397 Mar, Rheumatoid arthritis 714.0 ; Other psoriasis 696.1 and Cellulitis, axillary fold 682.3 [facility] [id number] [place] [address] 44361- 4134 Jan, [facility] [id number] [place] [address] 36216- 0803 Dec, [facility] [address] [address]- 0053 Dec, Other and unspecified hyperlipidemia 272.4 ; Other psoriasis 696.1 and Diabetes mellitus without mention of complication, type II or unspecified type, not stated as uncontrolled 250.00 [facility] [address] [address]- 7439 Dec, [facility] [address] [address] 9369 November, [facility] [address] [address]- 1912 Oct, [facility] [id number] [place] [address] 36853- 6297 Oct, [facility] [address] [address]- 5654 Sep, [facility] [id number] [place] [address]- 6389 24 Sep, 2014 [facility] [place] [facility] [address] [id number] [place] [address]- 4355 20 Sep, 2014 [facility] [place] [facility] [address] [id number] [place] [address]- 1184 20 Sep, 2014 [facility] [place] [facility] [address] [id number] [place] [address]- 1046 Sep, [facility] [place] [facility] [address] [id number] [place] [address]- 3298 13 Sep, 2014 [facility] [place] [facility] [address] [id number] [place] [address]- 1431 Sep, [facility] [place] [facility] [address] [id number] [place] [address]- 7035 Sep, [facility] [place] [facility] [address] [id number] [place] [address]- 8539 Sep, [facility] [place] [facility] [address] [id number] [place] [address]- 9262 Sep, [facility] [place] [facility] [address] [id number] [place] [address]- 0633 Jul, [facility] [place] [facility] [address] [id number] [place] [address]- 0595 Jul, [facility] [place] [facility] [address] [id number] [place] [address]- 1828 16 Jul, 2014 [facility] [place] [facility] [address] [id number] [place] [address]- 2373 16 Jul, 2014 [facility] [place] [facility] [address] [id number] [place] [address]- 8019 15 Jul, 2014 [facility] [place] [facility] [address] [id number] [place] [address]- 6076 15 Jul, 2014 [facility] [place] [facility] [address] [id number] [place] [address]- 0195 Jul, [facility] [place] [facility] [address] [id number] [place] [address]- 8330 Jul, [facility] [place] [facility] [address] [id number] [place] 9230 Jun, [facility] [place] [facility] [address] [id number] [place] [address]- 0729 Jun, [facility] [place] [facility] [address] [id number] [place] [address]- 1972 Jun, [facility] [place] [facility] [address] [id number] [place] [address]- 7823 Jun, [facility] [place] [facility] [address] [id number] [place] [address]- 0215 Jun, [facility] [place] [facility] [address] [id number] [place] [address]- 0611 Jun, [facility] [place] [facility] [address] [id number] [place] [address]- 5773 Apr, [facility] [place] [facility] [address] [id number] [place] [address]- 3730 Apr, [facility] [place] [facility] [address] [id number] [place] [address]- 2612 Mar, [facility] [place] [facility] [address] [id number] [place] [address]- 0417 Mar, [facility] [place] [facility] [address] [id number] [place] [address]- 5272 Feb, [facility] [place] [facility] [address] [id number] [place] [address]- 2237 Feb, [facility] [place] [facility] [address] [id number] [place] [address]- 9398 Jan, [facility] [place] [facility] [address] [id number] [place] [address]- 1220 Jan, [facility] [place] [facility] [address] [id number] [place] [address]- 6346 Jan, [facility] [place] [facility] [address] [id number] [place]- 2857 Jan, [facility] [place] [facility] [address] [id number] [place] [address]- 0837 Jan, [facility] [place] [facility] [address] [id number] [place] [address]- 4302 Dec, [facility] [place] [facility] [address] [id number] [place] [address]- 2567 Dec, [facility] [place] [facility] [address] [id number] [place] [address]- 9837 Dec, [facility] [place] [facility] [address] [id number] [place] [address]- 4393 Dec, [facility] [place] [facility] [address] [id number] [place] [address]- 4929 November, [facility] [place] [facility] [address] [id number] [place] [address]- 9593 November, [facility] [place] [facility] [address] [id number] [place] [address]- 5778 Oct, [facility] [place] [facility] [address] [id number] [place] [address]- 5998 Oct, [facility] [place] [facility] [address] [id number] [place] [address]- 6181 Sep, [facility] [place] [facility] [address] [id number] [place] [address]- 9858 Sep, [facility] [place] [facility] [address] [id number] [place] [address]- 3622 Sep, [facility] [place] [facility] [address] [id number] [place] [address]- 3272 Sep, [facility] [place] [facility] [address] [id number] [place] [address]- 4966 Aug, [facility] [place] [facility] [address] [id number] [place] [address]- 1439 Aug, [facility] [place] [facility] [address] [id number] [place] [address]- 6926 Aug, [facility] [place] [facility] [address] [id number] [place] [address]- 6366 Aug, [facility] [place] [facility] [address] [id number] [place] [address]- 5186 Aug, [facility] [place] [facility] [address] [id number] [place] [address]- 9862 Aug, [facility] [place] [facility] [address] [id number] [place] [address]- 1598 Jul, [facility] [place] [facility] [address] [id number] [place] [address]- 7056 Jul, [facility] [place] [facility] [address] [id number] [place] [address]- 3998 Jul, [facility] [place] [facility] [address] [id number] [place] [address]- 4021 Jul, [facility] [place] [facility] [address] [id number] [place] [address]- 5047 Jul, [facility] [place] [facility] [address] [id number] [place] [address]- 1487 Jul, [facility] [place] [facility] [address] [id number] [place] [address]- 6577 Jul, [facility] [place] [facility] [address] [id number] [place] [address]- 6666 Jul, [facility] [place] [facility] [address] [id number] [place] [address]- 2229 Jun, [facility] [place] [facility] [address] [id number] [place] [address]- 0083 Jun, [facility] [place] [facility] [address] [id number] [place] [address]- 9362 Jun, [facility] [place] [facility] [address] [id number] [place] [address]- 1286 Jun, [facility] [place] [facility] [address] [id number] [place] [address]- 6039 Jun, [facility] [place] [facility] [address] [facility] [id number] [place] [address]- 3326 Jun, [facility] [place] [facility] [address] [id number] [place] [address]- 0148 May, [facility] [place] [facility] [address] [id number] [place] [address]- 8562 May, [facility] [place] [facility] [address] [id number] [place] [address]- 8852 May, [facility] [place] [facility] [address] [id number] [place] [address]- 7790 May, [facility] [place] [facility] [address] [id number] [address]- 5937 Apr, [facility] [place] [facility] [address] [id number] [place] [address]- 0041 Apr, [facility] [place] [facility] [address] [id number] [place] [address]- 0425 08 Apr, 2013 [facility] [place] [facility] [address] [id number] [place] [address]- 9163 07 Apr, 2013 [facility] [place] [facility] [address] [id number] [address]- 3757 25 Mar, 2013 [facility] [place] [facility] [address] [id number] [place] [address]- 4285 23 Mar, 2013 [facility] [place] [facility] [address] [id number] [place] [address]- 2772 16 Mar, 2013 [facility] [place] [facility] [address] [id number] [place] [address]- 8228 12 Mar, 2013 [facility] [place] [facility] [address] [id number] [place] [address]- 7859 Mar, [facility] [address] [id number] [place] [address]- 4239 Mar, [facility] [address] [id number] [place] [address]- 3728 Feb, [facility] [address] [id number] [place] [address]- 9284 Feb, [facility] [place] [facility] [address] [id number] [place] [address]- 0967 Feb, [facility] [address] [id number] [place] [address]- 9613 Feb, [facility] [address] [id number] [place] [address]- 5747 Jan, [facility] [address] [id number] [place] [address]- 9688 Dec, [facility] [address] [id number] [place] [address]- 8735 November, [facility] [address] [id number] [place] [address]- 6016 Sep, [facility] [address] [id number] [place] [address]- 0532 Aug, [facility] [address] [id number] [place] [address]- 1659 Aug, [facility] [address] [id number] [place] [address]- 7695 Jul, [facility] [place] [facility] [address] [id number] [place] [address]- 0255 Jul, [facility] [place] [facility] [address] [id number] [place] [address]- 2080 Jun, [facility] [address] [id number] [place] 2863 Jun, [facility] [place] [facility] [address] [id number] [place] [address]- 4738 Jun, [facility] [place] [facility] [address] [id number] [place] [address]- 7916 Jun, [facility] [place] [facility] [address] [id number] [place] [address]- 5517 Jun, [facility] [place] [facility] [address] [id number] [place] [address]- 1765 Jun, [facility] [place] [facility] [address] [id number] [place] [address]- 2104 30 May, 2012 [facility] [place] [facility] [address] [id number] [place] [address]- 0279 29 May, 2012 [facility] [place] [facility] [address] [id number] [place] [address]- 8549 28 May, 2012 [facility] [place] [facility] [address] [id number] [place] [address]- 5221 28 May, 2012 [facility] [place] [facility] [address] [id number] [place] [address]- 2375 May, [facility] [place] [facility] [address] [facility] [id number] [place] [address]- 1079 27 May, 2012 [facility] [place] [facility] [address] [facility] [id number] [place] [address]- 6424 15 May, 2012 [facility] [place] [facility] [address] [id number] [place] [address] 15 May, 2012 [facility] [place] [facility] [address] [id number] [place] [address] 14 May, 2012 [facility] [place] [facility] [address] [id number] [place] [address] 14 May, 2012 [facility] [place] [facility] [address] [facility] [id number] [place] [address] 12 May, 2012 [facility] [place] [facility] [address] [id number] [place] [address] May, [facility] [place] [facility] [address] [id number] [place] [address] May, [facility] [place] [facility] [address] [id number] [place] [address] May, [facility] [place] [facility] [address] [facility] [id number] [place] [address] May, [facility] [place] [facility] [address] [id number] [place] [address] Apr, [facility] [place] [facility] [address] [id number] [place] [address] Apr, [facility] [place] [facility] [address] [id number] [place] [address] Apr, [facility] [place] [facility] [address] [facility] [id number] [place] [address] Apr, [facility] [place] [facility] [address] [facility] [id number] [place] [address] Apr, [facility] [place] [facility] [address] [facility] [id number] [place] [address] Apr, [facility] [place] [facility] [address] [facility] [id number] [place] [address] Apr, [facility] [place] [facility] [address] [facility] [id number] [place] [address] Apr, [facility] [place] [facility] [address] [facility] [id number] [place] [address] Apr, [facility] [place] [facility] [address] [id number] [place] [address] Apr, [facility] [place] [facility] [address] [facility] [id number] [place] [address] Mar, [facility] [place] [facility] [address] [facility] [id number] [place] [address] 24 Mar, 2012 [facility] [place] [facility] [address] [facility] [id number] [place] [address] 14 Mar, 2012 [facility] [address] [facility] [id number] [place] [address] Mar, [facility] [address] [facility] [id number] [place] [address] Feb, [facility] [address] [facility] [id number] [place] [address] Feb, [facility] [address] [facility] [id number] [place] [address] Feb, [facility] [address] [facility] [id number] [place] [address] Feb, [facility] [id number] [place] [address] Feb, [facility] [facility] [id number] [address] November, [facility] [id number] [address] Aug, [facility] [id number] [address] May, [facility] [id number] [address] May, [facility] [id number] [address] Apr, [facility] [id number] [address] Mar, IMMUNIZATIONS No Known Immunizations SOCIAL HISTORY Never Assessed REASON FOR VISIT Controlled Med Refill PLAN OF CARE VITAL SIGNS MEDICATIONS Medication Instructions Dosage Frequency Start Date End Date Duration Status Hydrocodone-Acetaminophen 5-325 MG Orally every 6 hrs 1 tablet as needed 6h 07 Jan, 2017 28 days Active GlipiZIDE 5 mg Orally twice a day 2 tablets 12h 90 days Active Pulmicort Flexhaler 180 MCG/ACT Inhalation Twice a day 2 puff 12h 03 Shiva, 2017 Active Methotrexate 2.5 MG Orally once weekly 4 tabs on week 1, 5 tabs week 2, 6 tabs every week thereafter November, Active Piroxicam 20 mg Orally Once a day 1 capsule with food 24h 90 days Active Folic Acid 1 MG Orally Once a day 1 tablet 24h November, 90 days Active Lipitor 40 mg Orally Once a day 1 tablet 24h 90 days Active Lisinopril 20 mg Orally Once a day 1 tablet 24h Aug, 90 days Active Hydroxychloroquine Sulfate 200 mg Orally Once a day 2 tablet with food or milk 24h 90 days Active Clobetasol Propionate 0.05 % Externally Twice a day as needed for psoriasis 1 application to affected area Dec, Active Advair Diskus 250-50 MCG/DOSE Inhalation Twice a day, approximately 12 hrs apart 1 puff Active RESULTS No Results PROCEDURES No Known [...] Hospitalization History Resp distress with hypoxia, pulmonary fibrosis-[facility] 08/03/16 Hospitalization History Shortness of breath 04/2017
--- OUTSIDE RECORDS SUMMARY | 2017-12-21 17:08 | XMS REPORT ---
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 Name Role Phone GENEVIEVESANTOSHJOSE F Unavailable PROBLEMS Type Condition ICD9-CM Code IVB86-RO Code Onset Dates Condition Status SNOMED Code Problem Psoriasis L40.9 Active 6111700 Problem Rheumatoid arthritis involving multiple sites with positive rheumatoid factor M05.79 Active 633874339 Problem Vision loss, left eye H54.62 Active 71220445 Problem Primary insomnia F51.01 Active 3181149 Problem Other elevated white blood cell (WBC) count D72.828 Active 568069405 Problem Essential hypertension I10 Active 68903524 Problem Hematochezia K92.1 Active 996119649 Problem Type 2 diabetes mellitus with hyperglycemia, without long-term current use of insulin E11.65 Active 08428882 Problem Tobacco use Z72.0 Active 753657476 Problem Renal cyst, right N28.1 Active 26229188 Problem Idiopathic pulmonary fibrosis J84.112 Active 374534836 Problem Chronic obstructive pulmonary disease, unspecified J44.9 Active 89031197 Problem Lactic acidosis E87.2 Active 50585803 Problem Hyperlipidemia E78.5 Active 57899316 ALLERGIES No Information ENCOUNTERS Encounter Location Date Diagnosis [facility] [id number] [address] Oct, [facility] [address], [place] [address] Oct, Rheumatoid arthritis involving multiple sites with positive rheumatoid factor M05.79 [facility] [id number] [place] [address] 49782- 6347 Oct, [facility] [id number] [address] 1005 Oct, Rheumatoid arthritis involving multiple sites with positive rheumatoid factor M05.79 [facility] [id number] [place] [address] 96858- 5639 Oct, Rheumatoid arthritis involving multiple sites with positive rheumatoid factor M05.79 ; Type 2 diabetes mellitus with hyperglycemia, without long-term current use of insulin E11.65 ; Hyperlipidemia E78.5 and Other elevated white blood cell (WBC) count D72.828 [facility] [facility] [address] [address]- [address]6 Oct, Chronic obstructive pulmonary disease, unspecified J44.9 [facility] [address] [address]61- 2275 Oct, Rheumatoid arthritis involving multiple sites with positive rheumatoid factor M05.79 [facility] [address] [address]- 0848 Oct, Type 2 diabetes mellitus with hyperglycemia, without long- term current use of insulin E11.65 [facility] [address] 95388- 8176 Sep, [facility] [address] [address]- 4106 Sep, Rheumatoid arthritis involving multiple sites with positive rheumatoid factor M05.79 ; Visit for TB skin test Z11.1 and Psoriasis L40.9 [place] [id number] [place] [address] 11197- 0486 Sep, Type 2 diabetes mellitus with hyperglycemia, without long- term current use of insulin E11.65 ; Rheumatoid arthritis involving multiple sites with positive rheumatoid factor M05.79 ; Hyperlipidemia E78.5 ; Essential hypertension I10 ; Other elevated white blood cell (WBC) count D72.828 ; Primary insomnia F51.01 and Tobacco use Z72.0 [facility] [address] 5[address]77- 3257 Sep, [facility] [id number] [place] [address] 16988- 9337 Aug, Type 2 diabetes mellitus with hyperglycemia, without long- term current use of insulin E11.65 and Hyperlipidemia E78.5 [facility] [address] [address] Jul, [facility] [address] [place] [address] 84158- 0861 Jul, Rheumatoid arthritis involving multiple sites with positive rheumatoid factor M05.79 [facility] [id number] [place] [address] 43527- 0332 Jul, Rheumatoid arthritis involving multiple sites with positive rheumatoid factor M05.79 [facility] [id number] [place] [address] 61199- 8229 Jun, Essential hypertension I10 and Hyperlipidemia E78.5 [facility] [id number] [place] [address] 37907- 7581 Jun, Chronic obstructive pulmonary disease, unspecified J44.9 [facility] [id number] [place] [address] 96271- 4173 Jun, [facility] [address] [place] [address] 05206- 5398 May, Type 2 diabetes mellitus without complication E11.9 ; Rheumatoid arthritis involving multiple sites with positive rheumatoid factor M05.79 ; Psoriasis L40.9 and Essential hypertension I10 [facility] [address] [place] [address] [id number] May, Dental examination Z01.20 and Dental caries K02.9 [place] [address] [place] [address] 09597- 2046 Apr, Type 2 diabetes mellitus without complication E11.9 ; Type 2 diabetes mellitus with hyperglycemia, without long-term current use of insulin E11.65 ; Idiopathic pulmonary fibrosis J84.112 ; Essential hypertension I10 ; Tobacco use Z72.0 ; Rheumatoid arthritis involving multiple sites with positive rheumatoid factor M05.79 ; Hyperlipidemia E78.5 and Chronic obstructive pulmonary disease, unspecified J44.9 [facility] [place] [address] [place] [address] 76917- 0732 Apr, Dental examination Z01.20 [facility] [address], [place] [address]- 0221 Apr, [facility] [address], [place] [address]- 9841 Apr, [facility] [address], [place] [address]- 4833 Apr, [facility] [id number] [place] [address] 23072- 2079 Apr, [facility] [address], [place] [address]- 4347 Apr, [facility] [id number] [place] [address] 88547- 8294 Apr, Type 2 diabetes mellitus without complication E11.9 and Essential hypertension I10 [facility] [id number], [place] [address]- 7795 Mar, [facility] [address], [place] [address]- 6394 Mar, Rheumatoid arthritis involving multiple sites with positive rheumatoid factor M05.79 [facility] [address] [place] [address] 79813- 0737 Mar, Type 2 diabetes mellitus without complication E11.9 ; Essential hypertension I10 and Hyperlipidemia E78.5 [facility] [address], [place] [address]- 1227 Mar, Rheumatoid arthritis involving multiple sites with positive rheumatoid factor M05.79 [facility] [address], [place] [address]- 5924 Mar, [facility] [address] [place] [address] 21166- 4101 Mar, Hyperlipidemia E78.5 ; Essential hypertension I10 and Type 2 diabetes mellitus without complication E11.9 [facility] [address], [place] [address]- 4914 Feb, Rheumatoid arthritis involving multiple sites with positive rheumatoid factor M05.79 and Essential hypertension I10 [facility] [address] [place] [address] 74904- 8712 Jan, Rheumatoid arthritis involving multiple sites with positive rheumatoid factor M05.79 [facility] [address], [place] [address]- 4125 Dec, Rheumatoid arthritis involving multiple sites with positive rheumatoid factor M05.79 [facility] [id number] [place] [address] 17192- 5738 Dec, [facility] [id number] [place] [address] 20001- 0393 November, Rheumatoid arthritis involving multiple sites with positive rheumatoid factor M05.79 and Psoriasis L40.9 [facility] [id number] [place] [address] 28256- 2579 November, Hyperlipidemia E78.5 [facility] [address] [place] [address] 98371- 3084 November, Type 2 diabetes mellitus without complication E11.9 [facility] [address] [place] [address] 18975- 4484 November, [facility] [address] [place] [address] 59872- 1259 November, Rheumatoid arthritis involving multiple sites with positive rheumatoid factor M05.79 ; Hyperlipidemia E78.5 ; Type 2 diabetes mellitus without complication E11.9 ; Idiopathic pulmonary fibrosis J84.112 and Tobacco use Z72.0 [facility] [address], [place] [address]- 3186 Oct, Essential hypertension I10 and Rheumatoid arthritis involving multiple sites with positive rheumatoid factor M05.79 [facility] [address], [place] [address]- 1156 Sep, Rheumatoid arthritis involving multiple sites with positive rheumatoid factor M05.79 and Psoriasis L40.9 [facility] [address] [place] [address] 72087- 4103 Jul, Rheumatoid arthritis involving multiple sites with positive rheumatoid factor M05.79 [place] [id number] [place] [address] 43819- 7809 Jul, Idiopathic pulmonary fibrosis J84.112 [facility] [id number] [place] [address] [id number] Jul, [address] [address]- 0928 Jul, Idiopathic pulmonary fibrosis J84.[address] 41093- 7292 Jul, Idiopathic pulmonary fibrosis J84.112 and Hypoxia R09.02 [place] [id number] [place] [address] 86376- 8982 Jul, Cough R05 and Idiopathic pulmonary fibrosis J84.112 [place] [id number] [place] [address] 36191- 9848 Apr, Type 2 diabetes mellitus without complication E11.9 ; Rheumatoid arthritis involving multiple sites with positive rheumatoid factor M05.79 ; Psoriasis L40.9 ; Hyperlipidemia E78.5 ; Idiopathic pulmonary fibrosis J84.112 and Essential hypertension I10 [place] [id number] [place] [address] 35559- 4740 Feb, [place] [id number] [place] [address] 79260- 4350 Feb, [place] [id number] [place] [address] 27336- 1865 Dec, Right ankle gives way M25.[address] 74285- 8070 November, [place] [id number] [place] [address] 61817- 0515 November, Wrist pain, left M25.[address] 37623- 4646 Sep, Psoriasis L40.9 [facility] [address] [place] [address] 68371- 2294 Sep, COPD exacerbation J44.1 [facility] [id number] [place] [address] 12735- 5961 15 Aug, 2015 [facility] [id number] [place] [address] 90634- 6659 Aug, Rheumatoid arthritis involving multiple sites with positive rheumatoid factor M05.79 and Hyperlipidemia E78.5 [facility] [id number] [place] [address] 91760- 7937 Aug, [facility] [id number] [place] [address] 24555- 5728 Aug, Psoriasis L40.9 ; Rheumatoid arthritis involving multiple sites with positive rheumatoid factor M05.79 and Essential hypertension I10 [facility] [id number] [place] [address] 23322- 3193 Jul, [facility] [id number] [place] [address] 09731- 2786 Jul, [facility] [id number] [place] [address] 97052- 1146 Jul, Type 2 diabetes mellitus without complication E11.9 ; Hyperlipidemia E78.5 and Rheumatoid arthritis involving multiple sites with positive rheumatoid factor M05.79 [facility] [address] [place] [address] 24729- 9632 Jun, [facility] [address] [place] [address] 87111- 9112 Apr, [facility] [id number] [place] [address] 58512- 8649 Mar, [facility] [address] [place] [address] 47934- 5442 Mar, [facility] [id number] [place] [address] 98839- 4941 Mar, Rheumatoid arthritis 714.0 ; Other psoriasis 696.1 and Cellulitis, axillary fold 682.3 [facility] [address], [place] [address]- 7336 Jan, [facility] [id number], [place] [address]- 1585 Dec, [facility] [id number] [place] [address] 26697- 1757 Dec, Other and unspecified hyperlipidemia 272.4 ; Other psoriasis 696.1 and Diabetes mellitus without mention of complication, type II or unspecified type, not stated as uncontrolled 250.00 [facility] [address] [address] 4803 Dec, [facility] [id number] [place] [address] 30279- 0280 November, [facility] [address], [place] [address]- 7338 Oct, [facility] [address], [place] [address]- 5306 Oct, [facility] [address] [address] 3620 Sep, [facility] [address], [place] [address]- 7118 Sep, [facility] [address] [address] 6924 Sep, [facility] [address], [place] [address]- 4128 Sep, [facility] [address] 0137 Sep, [facility] [address], [place] [address]- 2544 Sep, [facility] [address] [place] [address]- 9234 13 Sep, 2014 [facility] [address] [id number] [place] [address]- 0040 13 Sep, 2014 [facility] [place] [facility] [address] [id number] [place] [address]- 0286 03 Sep, 2014 [facility] [address] [id number] [place] [address]- 2417 03 Sep, 2014 [facility] [address] [id number] [place] [address]- 6731 19 Jul, 2014 [facility] [address] [id number] [place] [address]- 4831 19 Jul, 2014 [facility] [address] [id number] [place] [address]- 9121 16 Jul, 2014 [facility] [address] [id number] [place] [address]- 1754 16 Jul, 2014 [facility] [address] [id number] [place] [address]- 2891 15 Jul, 2014 [facility] [address] [id number] [place] [address]- 8505 15 Jul, 2014 [facility] [address] [id number] [place] [address]- 5201 13 Jul, 2014 [facility] [address] [id number] [place] [address]- 8132 13 Jul, 2014 [facility] [address] [id number] [place] [address]- 5984 Jun, [facility] [place] [facility] [address] [id number] [place] [address]- 3420 Jun, [facility] [place] [facility] [address] [id number] [place] [address]- 0384 Jun, [facility] [place] [facility] [address] [id number] [place] [address]- 5465 Jun, [facility] [place] [facility] [address] [id number] [place] [address]- 1990 Jun, [facility] [place] [facility] [address] [id number] [place] [address]- 1033 Jun, [facility] [place] [facility] [address] [id number] [place] 5373 Apr, [facility] [place] [facility] [address] [id number] [place] [address]- 2762 Apr, [facility] [place] [facility] [address] [id number] [place] 1294 Mar, [facility] [place] [facility] [address] [id number] [place] [address]- 9069 Mar, [facility] [place] [facility] [address] [id number] [place] [address]- 9691 Feb, [facility] [place] [facility] [address] [id number] [place] [address]- 7829 Feb, [facility] [place] [facility] [address] [id number] [place] [address]- 8526 Jan, [facility] [place] [facility] [address] [id number] [place] [address]- 6308 Jan, [facility] [place] [facility] [address] [id number], [place] [address]- 2458 Jan, [facility] [place] [facility] [address] [id number], [place] [address]- 6004 Jan, [facility] [place] [facility] [address] [id number] [place] [address]- 9642 Jan, [facility] [place] [facility] [address] [id number] [place] [address]- 0212 Dec, [facility] [place] [facility] [address] [id number] [place] [address]- 3526 Dec, [facility] [place] [facility] [address] [id number], [place] [address]- 9534 Dec, [facility] [place] [facility] [address] [id number] [place] [address]- 2208 Dec, [facility] [place] [facility] [address] [facility] [id number] [place] [address]- 1814 November, [facility] [place] [facility] [address] [facility] [id number] [place] [address]- 0110 November, [facility] [place] [facility] [address] [facility] [id number] [place] [address]- 4491 Oct, [facility] [place] [facility] [address] [facility] [id number] [place] [address]- 9760 Oct, [facility] [place] [facility] [address] [facility] [id number] [place] [address]- 8354 Sep, [facility] [place] [facility] [address] [facility] [id number] [place] [address]- 4050 Sep, [facility] [place] [facility] [address] [facility] [id number] [place] [address]- 8174 Sep, [facility] [place] [facility] [address] [facility] [id number] [place] [address]- 9404 Sep, [facility] [place] [facility] [address] [facility] [id number] [place] [address]- 6094 Aug, [facility] [place] [facility] [address] [facility] [id number] [place] [address]- 8452 Aug, [facility] [place] [facility] [address] [facility] [id number] [place] [address]- 3445 Aug, [facility] [place] [facility] [address] [id number] [place] [address]- 4700 Aug, [facility] [place] [facility] [address] [facility] [id number] [place] [address]- 9993 Aug, [facility] [place] [facility] [address] [facility] [id number] [place] [address]- 7755 Aug, [facility] [place] [facility] [address] [id number] [place] [address]- 4440 Jul, [facility] [address] [id number] [place] [address]- 6076 Jul, [facility] [place] [facility] [address] [id number] [place] [address]- 7927 Jul, [facility] [place] [facility] [address] [id number] [place] [address]- 2014 Jul, [facility] [address] [id number] [place] [address]- 0131 Jul, [facility] [place] [facility] [address] [id number] [place] [address]- 2804 Jul, [facility] [address] [id number] [place] [address]- 1520 Jul, [facility] [address] [id number] [place] [address]- 6489 Jul, [facility] [place] [facility] [address] [id number] [place] [address]- 5987 Jun, [facility] [place] [facility] [address] [id number] [place] 0360 Jun, [facility] [place] [facility] [address] [id number] [place] [address]- 3760 Jun, [facility] [place] [facility] [address] [id number], [place] [address]- 5684 Jun, [facility] [place] [facility] [address] [id number] [place] [address]- 1694 Jun, [facility] [place] [facility] [address] [id number] [place] [address]- 2866 Jun, [facility] [place] [facility] [address] [id number] [place] [address]- 6385 May, [facility] [place] [facility] [address] [id number] [address]- 6766 May, [facility] [place] [facility] [address] [id number] [place] [address]- 3075 May, [facility] [place] [facility] [address] [id number] [place] [address]- 8164 May, [facility] [place] [facility] [address] [id number] [place] [address]- 9658 Apr, [facility] [place] [facility] [address] [id number] [place] [address]- 3917 Apr, [facility] [place] [facility] [address] [id number] [place] [address]- 1850 Apr, [facility] [place] [facility] [address] [id number] [place] [address]- 9566 Apr, [facility] [place] [facility] [address] [id number] [place] [address]- 1828 25 Mar, 2013 [facility] [place] [facility] [address] [id number] [place] [address]- 9099 23 Mar, 2013 [facility] [place] [facility] [address] [id number] [place] [address]- 8449 16 Mar, 2013 [facility] [place] [facility] [address] [id number] [place] [address]- 6949 12 Mar, 2013 [facility] [place] [facility] [address] [id number] [place] [address]- 8522 09 Mar, 2013 [facility] [place] [facility] [address] [id number] [place] [address]- 1116 Mar, [facility] [place] [facility] [address] [id number] [place] [address]- 9968 Feb, [facility] [place] [facility] [address] [id number] [place] [address] Feb, [facility] [place] [facility] [address] [id number] [place] [address] Feb, [facility] [place] [facility] [address] [id number] [place] [address] Feb, [facility] [address] [id number] [place] [address] Jan, [facility] [place] [facility] [address] [id number] [place] [address] Dec, [facility] [place] [facility] [address] [id number] [place] [address] November, [facility] [place] [facility] [address] [id number] [place] [address] Sep, [facility] [place] [facility] [address] [id number] [place] [address] Aug, [facility] [place] [facility] [address] [id number] [place] [address] Aug, [facility] [place] [facility] [address] [id number] [place] [address] Jul, [facility] [address] [id number] [place] [address] Jul, [facility] [address] [id number] [place] [address] Jun, [facility] [address] [id number] [place] [address] Jun, [facility] [place] [facility] [address] [id number] [place] [address] Jun, [facility] [facility] [address] [id number] [place] [address] Jun, [facility] [place] [facility] [address] [id number] [place] [address] Jun, [facility] [place] [facility] [address] [id number] [place] [address] Jun, [facility] [place] [facility] [address] [id number] [place] [address] 30 May, 2012 [facility] [place] [facility] [address] [id number] [place] [address] 29 May, 2012 [facility] [place] [facility] [address] [id number] [place] [address] 28 May, 2012 [facility] [place] [facility] [address] [id number] [place] [address] 28 May, 2012 [facility] [place] [facility] [address] [id number] [place] [address] May, [facility] [place] [facility] [address] [id number] [place] [address] 27 May, 2012 [facility] [place] [facility] [address] [id number] [place] [address] 15 May, 2012 [facility] [place] [facility] [address] [id number] [place] [address] 15 May, 2012 [facility] [place] [facility] [address] [id number], [place] [address] 14 May, 2012 [facility] [place] [facility] [address] [id number] [place] [address] 14 May, 2012 [facility] [place] [facility] [address] [facility] [id number] [place] [address] 12 May, 2012 [facility] [place] [facility] [address] [id number], [place] [address] 12 May, 2012 [facility] [place] [facility] [address] [id number], [place] [address] 10 May, 2012 [facility] [place] [facility] [address] [id number] [place] [address] 10 May, 2012 [facility] [place] [facility] [address] [id number] [address] 08 May, 2012 [facility] [place] [facility] [address] [id number], [place] [address] 26 Apr, 2012 [facility] [place] [facility] [address] [id number] [place] [address] Apr, [facility] [place] [facility] [address] [id number] [place] [address] Apr, [facility] [place] [facility] [address] [id number] [place] [address] Apr, [facility] [place] [facility] [address] [id number] [place] [address] Apr, [facility] [place] [facility] [address] [id number] [place] [address] Apr, [facility] [place] [facility] [address] [id number] [place] [address] Apr, [facility] [place] [facility] [address] [id number] [place] [address] Apr, [facility] [place] [facility] [address] [id number] [place] [address] Apr, [facility] [place] [facility] [address] [id number] [place] [address] Apr, [facility] [place] [facility] [address] [id number] [place] [address] 25 Mar, 2012 [facility] [place] [facility] [address] [id number] [place] [address] 24 Mar, 2012 [facility] [place] [facility] [address] [id number] [place] [address] 14 Mar, 2012 [facility] [place] [facility] [address] [id number] [place] [address] 04 Mar, 2012 [facility] [place] [facility] [address] [id number] [place] [address] Feb, [facility] [place] [facility] [address] [id number] [place] [address] Feb, [facility] [place] [facility] [address] [id number] [place] [address] 15 Feb, 2012 [facility] [address] [id number] [address] Feb, [facility] [address] [id number] [address] Feb, [facility] [address] [id number] [address] November, [facility] [id number] [address] Aug, [facility] [id number] [address] May, [facility] [id number] [address] May, [facility] [id number] [address] Apr, [facility] [address] [id number], [place] [address] Mar, IMMUNIZATIONS No Known Immunizations SOCIAL HISTORY Never Assessed REASON FOR VISIT Medication refill request PLAN OF CARE VITAL SIGNS MEDICATIONS Medication Instructions Dosage Frequency Start Date End Date Duration Status Lisinopril 20 mg Orally Once a day 1 tablet 24h Aug, 90 days Active Methotrexate 2.5 MG Orally once weekly 6 tabs November, Active Folic Acid 1 MG Orally Once a day 1 tablet 24h November, May, 90 days Active RESULTS No Results PROCEDURES [...] Hospitalization History Resp distress with hypoxia, pulmonary fibrosis-[facility] 08/03/16 Hospitalization History Shortness of breath 04/2017
--- OUTSIDE RECORDS SUMMARY | 2017-12-21 17:09 | XMS REPORT ---
Author Author GENEVIEVE JOSE F [facility] Address [address] [place] [address] Care Team Providers Care Equalizer Operator Name Role Phone GENEVIEVESANTOSH LEMAHANY Unavailable PROBLEMS Type Condition ICD9-CM Code EOT58-IA Code Onset Dates Condition Status SNOMED Code Problem Psoriasis L40.9 Active 1047972 Problem Rheumatoid arthritis involving multiple sites with positive rheumatoid factor M05.79 Active 944678152 Problem Vision loss, left eye H54.62 Active 77260563 Problem Primary insomnia F51.01 Active 7427338 Problem Other elevated white blood cell (WBC) count D72.828 Active 266593568 Problem Essential hypertension I10 Active 50641816 Problem Hematochezia K92.1 Active 451794570 Problem Type 2 diabetes mellitus with hyperglycemia, without long-term current use of insulin E11.65 Active 05145834 Problem Tobacco use Z72.0 Active 602160389 Problem Renal cyst, right N28.1 Active 09900907 Problem Idiopathic pulmonary fibrosis J84.112 Active 628018449 Problem Chronic obstructive pulmonary disease, unspecified J44.9 Active 62711940 Problem Lactic acidosis E87.2 Active 09114043 Problem Hyperlipidemia E78.5 Active 53233939 ALLERGIES No Information ENCOUNTERS Encounter Location Date Diagnosis [facility] [id number] [address] November, [facility] [id number], [place] [address] Oct, Rheumatoid arthritis involving multiple sites with positive rheumatoid factor M05.79 [facility] [id number] [place] [address] 77212- 9365 Oct, [facility] [id number] [address] Oct, Rheumatoid arthritis involving multiple sites with positive rheumatoid factor M05.79 [place] [id number] [place] [address] 95181- 3924 Oct, Rheumatoid arthritis involving multiple sites with positive rheumatoid factor M05.79 ; Type 2 diabetes mellitus with hyperglycemia, without long-term current use of insulin E11.65 ; Hyperlipidemia E78.5 and Other elevated white blood cell (WBC) count D72.828 [place] [address] [address] Oct, Chronic obstructive pulmonary disease, unspecified J44.9 [place] [address] [address]- [address]11 Oct, Rheumatoid arthritis involving multiple sites with positive rheumatoid factor M05.79 [place] [address] [address]- [address] Oct, Type 2 diabetes mellitus with hyperglycemia, without long- term current use of insulin E11.65 [place] [address] [address]- [address] Sep, [place] [address] [address]- 279[address] Sep, Rheumatoid arthritis involving multiple sites with positive rheumatoid factor M05.79 ; Visit for TB skin test Z11.1 and Psoriasis L40.9 [place] [id number] [place] [address] 70788- 5556 Sep, Type 2 diabetes mellitus with hyperglycemia, without long- term current use of insulin E11.65 ; Rheumatoid arthritis involving multiple sites with positive rheumatoid factor M05.79 ; Hyperlipidemia E78.5 ; Essential hypertension I10 ; Other elevated white blood cell (WBC) count D72.828 ; Primary insomnia F51.01 and Tobacco use Z72.0 [place] [address] [address]- 73[address] Sep, [place] [id number] [place] [address] 81924- 8226 Aug, Type 2 diabetes mellitus with hyperglycemia, without long- term current use of insulin E11.65 and Hyperlipidemia E78.5 [facility] [address] [address] Jul, [facility] [address] [place] [address] 91237- 4577 Jul, Rheumatoid arthritis involving multiple sites with positive rheumatoid factor M05.79 [place] [id number] [place] [address] 91378- 3681 Jul, Rheumatoid arthritis involving multiple sites with positive rheumatoid factor M05.79 [place] [id number] [place] [address] 09977- 5139 Jun, Essential hypertension I10 and Hyperlipidemia E78.5 [place] [id number] [place] [address] 11617- 9396 Jun, Chronic obstructive pulmonary disease, unspecified J44.9 [place] [id number] [place] [address] 55490- 4883 Jun, [place] [address] [place] [address] 02028- 4322 May, Type 2 diabetes mellitus without complication E11.9 ; Rheumatoid arthritis involving multiple sites with positive rheumatoid factor M05.79 ; Psoriasis L40.9 and Essential hypertension I10 [facility] [place] [address] [place] [address] [id number] May, Dental examination Z01.20 and Dental caries K02.9 [place] [address] [place] [address] 05292- 8242 Apr, Type 2 diabetes mellitus without complication E11.9 ; Type 2 diabetes mellitus with hyperglycemia, without long-term current use of insulin E11.65 ; Idiopathic pulmonary fibrosis J84.112 ; Essential hypertension I10 ; Tobacco use Z72.0 ; Rheumatoid arthritis involving multiple sites with positive rheumatoid factor M05.79 ; Hyperlipidemia E78.5 and Chronic obstructive pulmonary disease, unspecified J44.9 [place] [address] [place] [address] 69126- 9898 Apr, Dental examination Z01.20 [facility] [address], [place] [address] 4551 Apr, [facility] [address], [place] [address]- 9736 Apr, [facility] [address], [place] [address]- 3764 Apr, [facility] [id number] [place] [address] 02534- 0860 Apr, [facility] [address] [address]- 5548 Apr, [facility] [id number] [place] [address] 75401- 4570 Apr, Type 2 diabetes mellitus without complication E11.9 and Essential hypertension I10 [facility] [address] [address]- [address] Mar, [facility] [address], [place] [address]- 8201 Mar, Rheumatoid arthritis involving multiple sites with positive rheumatoid factor M05.79 [facility] [address] [place] [address] 88583- 1020 Mar, Type 2 diabetes mellitus without complication E11.9 ; Essential hypertension I10 and Hyperlipidemia E78.5 [facility] [address] [address]- 8[address] Mar, Rheumatoid arthritis involving multiple sites with positive rheumatoid factor M05.79 [facility] [address], [place] [address]- 20[address] Mar, [facility] [address] [place] [address] 79633- 1565 Mar, Hyperlipidemia E78.5 ; Essential hypertension I10 and Type 2 diabetes mellitus without complication E11.9 [facility] [address] [address]- 4248 Feb, Rheumatoid arthritis involving multiple sites with positive rheumatoid factor M05.79 and Essential hypertension I10 [facility] [address] [place] [address] 48404- 0370 Jan, Rheumatoid arthritis involving multiple sites with positive rheumatoid factor M05.79 [facility] [address] [address]- 7293 Dec, Rheumatoid arthritis involving multiple sites with positive rheumatoid factor M05.79 [facility] [id number] [place] [address] 25156- 3236 Dec, [facility] [id number] [place] [address] 44212- 5167 November, Rheumatoid arthritis involving multiple sites with positive rheumatoid factor M05.79 and Psoriasis L40.9 [place] [id number] [place] [address] 89852- 5299 November, Hyperlipidemia E78.5 [facility] [address] [place] [address] 02341- 2118 November, Type 2 diabetes mellitus without complication E11.9 [facility] [address] [place] [address] 97325- 7944 November, [facility] [address] [place] [address] 05107- 0306 November, Rheumatoid arthritis involving multiple sites with positive rheumatoid factor M05.79 ; Hyperlipidemia E78.5 ; Type 2 diabetes mellitus without complication E11.9 ; Idiopathic pulmonary fibrosis J84.112 and Tobacco use Z72.0 [facility] [address] [address]- 5854 Oct, Essential hypertension I10 and Rheumatoid arthritis involving multiple sites with positive rheumatoid factor M05.79 [facility] [address] [address]- 2989 Sep, Rheumatoid arthritis involving multiple sites with positive rheumatoid factor M05.79 and Psoriasis L40.9 [facility] [address] [place] [address] 17551- 5450 Jul, Rheumatoid arthritis involving multiple sites with positive rheumatoid factor M05.79 [place] [id number] [place] [address] 12692- 2664 Jul, Idiopathic pulmonary fibrosis J84.112 [facility] [id number] [place] [id number] Jul, [address] [address]- 9731 Jul, Idiopathic pulmonary fibrosis J84.[address] 47916- 7034 Jul, Idiopathic pulmonary fibrosis J84.112 and Hypoxia R09.02 [place] [id number] [place] [address] 20925- 0511 Jul, Cough R05 and Idiopathic pulmonary fibrosis J84.112 [place] [id number] [place] [address] 59208- 0561 Apr, Type 2 diabetes mellitus without complication E11.9 ; Rheumatoid arthritis involving multiple sites with positive rheumatoid factor M05.79 ; Psoriasis L40.9 ; Hyperlipidemia E78.5 ; Idiopathic pulmonary fibrosis J84.112 and Essential hypertension I10 [place] [id number] [place] [address] 79811- 7553 Feb, [place] [id number] [place] [address] 38989- 1832 Feb, [place] [id number] [place] [address] 34543- 3147 Dec, Right ankle gives way M25.[address] 48962- 8263 November, [place] [id number] [place] [address] 31437- 4516 November, Wrist pain, left M25.[address] 08198- 6171 Sep, Psoriasis L40.9 [facility] [address] [place] [address] 71718- 8654 Sep, COPD exacerbation J44.1 [facility] [id number] [place] [address] 99264- 7224 15 Aug, 2015 [facility] [id number] [place] [address] 82135- 7936 Aug, Rheumatoid arthritis involving multiple sites with positive rheumatoid factor M05.79 and Hyperlipidemia E78.5 [facility] [id number] [place] [address] 76073- 3218 Aug, [facility] [id number] [place] [address] 07376- 2945 Aug, Psoriasis L40.9 ; Rheumatoid arthritis involving multiple sites with positive rheumatoid factor M05.79 and Essential hypertension I10 [facility] [id number] [place] [address] 68472- 3690 Jul, [facility] [id number] [place] [address] 73903- 4781 Jul, [facility] [id number] [place] [address] 71701- 3962 Jul, Type 2 diabetes mellitus without complication E11.9 ; Hyperlipidemia E78.5 and Rheumatoid arthritis involving multiple sites with positive rheumatoid factor M05.79 [facility] [address] [place] [address] 29891- 8068 Jun, [facility] [address] [place] [address] 21461- 9815 Apr, [facility] [id number] [place] [address] 80339- 0095 Mar, [facility] [address] [place] [address] 30008- 3701 Mar, [facility] [id number] [place] [address] 55914- 8116 Mar, Rheumatoid arthritis 714.0 ; Other psoriasis 696.1 and Cellulitis, axillary fold 682.3 [facility] [address] [address]- 4656 Jan, [facility] [id number] [address]- 5121 Dec, [facility] [id number] [place] [address] 26724- 7872 Dec, Other and unspecified hyperlipidemia 272.4 ; Other psoriasis 696.1 and Diabetes mellitus without mention of complication, type II or unspecified type, not stated as uncontrolled 250.00 [facility] [address] [address] 7412 Dec, [facility] [id number] [place] [address] 77988- 6651 November, [facility] [address] [address]- 7265 Oct, [facility] [address], [place] [address]- 8106 Oct, [facility] [address] 3537 Sep, [facility] [address], [place] [address]- 3184 Sep, [facility] [address] [address] 5529 Sep, [facility] [address], [place] [address]- 6220 Sep, [facility] [address] 4141 Sep, [facility] [address], [place] [address]- 7400 Sep, [facility] [address] [address]- 0513 13 Sep, 2014 [facility] [address] [id number] [place] [address]- 8597 13 Sep, 2014 [facility] [place] [facility] [address] [id number] [place] [address]- 0976 03 Sep, 2014 [facility] [address] [id number] [place] [address]- 6484 03 Sep, 2014 [facility] [address] [id number] [place] [address]- 4779 19 Jul, 2014 [facility] [address] [id number] [place] [address]- 2074 19 Jul, 2014 [facility] [address] [id number] [place] [address]- 8975 16 Jul, 2014 [facility] [address] [id number] [place] [address]- 0874 16 Jul, 2014 [facility] [address] [id number] [place] [address]- 8725 15 Jul, 2014 [facility] [address] [id number] [place] [address]- 5626 15 Jul, 2014 [facility] [address] [id number] [place] [address]- 3667 13 Jul, 2014 [facility] [address] [id number] [place] [address]- 5057 13 Jul, 2014 [facility] [address] [id number] [place] [address]- 9087 Jun, [facility] [place] [facility] [address] [id number] [place] [address]- 9374 Jun, [facility] [place] [facility] [address] [id number] [place] [address]- 8917 Jun, [facility] [place] [facility] [address] [id number] [place] [address]- 5957 Jun, [facility] [place] [facility] [address] [id number] [place] [address]- 6678 Jun, [facility] [place] [facility] [address] [id number] [place] [address]- 4795 Jun, [facility] [place] [facility] [address] [id number] [place] 5570 Apr, [facility] [place] [facility] [address] [id number] [place] [address]- 9886 Apr, [facility] [place] [facility] [address] [id number] [place] [address]34 Mar, [facility] [place] [facility] [address] [id number] [place] [address]- 7490 Mar, [facility] [place] [facility] [address] [id number] [place] [address]- 4403 Feb, [facility] [place] [facility] [address] [id number] [place] [address]- 8464 Feb, [facility] [place] [facility] [address] [id number] [place] [address]- 4415 Jan, [facility] [place] [facility] [address] [id number] [place] [address]- 9305 Jan, [facility] [place] [facility] [address] [id number], [place] [address]- 4239 Jan, [facility] [place] [facility] [address] [id number], [place] [address]- 4436 Jan, [facility] [place] [facility] [address] [id number] [place] [address]- 7507 Jan, [facility] [place] [facility] [address] [id number] [place] [address]- 5479 Dec, [facility] [place] [facility] [address] [id number] [place] [address]- 1939 Dec, [facility] [place] [facility] [address] [id number], [place] [address]- 9537 Dec, [facility] [place] [facility] [address] [id number] [place] [address]- 9141 Dec, [facility] [place] [facility] [address] [facility] [id number] [place] [address]- 4158 November, [facility] [place] [facility] [address] [facility] [id number] [place] [address]- 0484 November, [facility] [place] [facility] [address] [facility] [id number] [place] [address]- 9773 Oct, [facility] [place] [facility] [address] [facility] [id number] [place] [address]- 8181 Oct, [facility] [place] [facility] [address] [facility] [id number] [place] [address]- 5725 Sep, [facility] [place] [facility] [address] [facility] [id number] [place] [address]- 9561 Sep, [facility] [place] [facility] [address] [facility] [id number] [place] [address]- 9980 Sep, [facility] [place] [facility] [address] [facility] [id number] [place] [address]- 8581 Sep, [facility] [place] [facility] [address] [facility] [id number] [place] [address]- 6332 Aug, [facility] [place] [facility] [address] [facility] [id number] [place] [address]- 9881 Aug, [facility] [place] [facility] [address] [facility] [id number] [place] [address]- 0858 Aug, [facility] [place] [facility] [address] [id number] [place] [address]- 8933 Aug, [facility] [place] [facility] [address] [facility] [id number] [place] [address]- 0454 Aug, [facility] [place] [facility] [address] [facility] [id number] [place] [address]- 6651 Aug, [facility] [place] [facility] [address] [id number] [place] [address]- 3790 Jul, [facility] [address] [id number] [place] [address]- 7107 Jul, [facility] [place] [facility] [address] [id number] [place] [address]- 1082 Jul, [facility] [place] [facility] [address] [id number] [place] [address]- 3793 Jul, [facility] [address] [id number] [place] [address]- 2247 Jul, [facility] [place] [facility] [address] [id number] [place] [address]- 7989 Jul, [facility] [address] [id number] [place] [address]- 5471 Jul, [facility] [address] [id number] [place] [address]- 3060 Jul, [facility] [place] [facility] [address] [id number] [place] [address]- 9970 Jun, [facility] [place] [facility] [address] [id number] [place] 4670 Jun, [facility] [place] [facility] [address] [id number] [place] [address]- 1100 Jun, [facility] [place] [facility] [address] [id number], [place] [address]- 4009 Jun, [facility] [place] [facility] [address] [id number] [place] [address]- 2930 Jun, [facility] [place] [facility] [address] [id number] [place] [address]- 9936 Jun, [facility] [place] [facility] [address] [id number] [place] [address]- 0340 May, [facility] [place] [facility] [address] [id number], [place] [address]- 0410 May, [facility] [place] [facility] [address] [id number] [place] [address]- 2663 May, [facility] [place] [facility] [address] [id number] [place] [address]- 0035 May, [facility] [place] [facility] [address] [id number] [place] [address]- 1816 Apr, [facility] [place] [facility] [address] [id number] [place] [address]- 7342 Apr, [facility] [place] [facility] [address] [id number] [place] [address]- 0073 Apr, [facility] [place] [facility] [address] [id number] [place] [address]- 4469 Apr, [facility] [place] [facility] [address] [id number] [place] [address]- 3061 25 Mar, 2013 [facility] [place] [facility] [address] [id number] [place] [address]- 7312 23 Mar, 2013 [facility] [place] [facility] [address] [id number] [place] [address]- 5161 16 Mar, 2013 [facility] [place] [facility] [address] [id number] [place] [address]- 9384 12 Mar, 2013 [facility] [place] [facility] [address] [id number] [place] [address]- 8463 09 Mar, 2013 [facility] [place] [facility] [address] [id number] [place] [address]- 1253 Mar, [facility] [place] [facility] [address] [id number] [place] [address]- 5392 Feb, [facility] [place] [facility] [address] [id number] [place] [address]- 9736 Feb, [facility] [place] [facility] [address] [id number] [place] [address]- 6766 Feb, [facility] [place] [facility] [address] [id number] [place] [address]- 3003 Feb, [facility] [address] [id number] [place] [address]- [address] Jan, [facility] [place] [facility] [address] [id number] [place] [address] Dec, [facility] [place] [facility] [address] [id number] [place] [address] November, [facility] [place] [facility] [address] [id number] [place] [address] Sep, [facility] [place] [facility] [address] [id number] [place] [address] Aug, [facility] [place] [facility] [address] [id number] [place] [address] Aug, [facility] [place] [facility] [address] [id number] [place] [address] Jul, [facility] [address] [id number] [place] [address] Jul, [facility] [address] [id number] [place] [address] Jun, [facility] [address] [id number] [place] [address] Jun, [facility] [place] [facility] [address] [id number] [place] [address] Jun, [facility] [place] [facility] [address] [id number] [place] [address] Jun, [facility] [place] [facility] [address] [id number] [place] [address] Jun, [facility] [place] [facility] [address] [id number] [place] [address] Jun, [facility] [place] [facility] [address] [id number] [place] [address] 30 May, 2012 [facility] [place] [facility] [address] [id number] [place] [address] 29 May, 2012 [facility] [place] [facility] [address] [id number] [place] [address] 28 May, 2012 [facility] [place] [facility] [address] [id number] [place] [address] 28 May, 2012 [facility] [place] [facility] [address] [id number] [place] [address] May, [facility] [place] [facility] [address] [id number] [place] [address] 27 May, 2012 [facility] [place] [facility] [address] [id number] [place] [address] 15 May, 2012 [facility] [place] [facility] [address] [address] [id number] [place] [address] 15 May, 2012 [facility] [place] [facility] [address] [id number], [place] [address] 14 May, 2012 [facility] [place] [facility] [address] [id number] [place] [address] 14 May, 2012 [facility] [place] [facility] [address] [facility] [id number] [place] [address] 12 May, 2012 [facility] [place] [facility] [address] [id number], [place] [address] 12 May, 2012 [facility] [place] [facility] [address] [id number], [place] [address] 10 May, 2012 [facility] [place] [facility] [address] [id number] [place] [address] 10 May, 2012 [facility] [place] [facility] [address] [id number], [place] [address] 08 May, 2012 [facility] [place] [facility] [address] [id number], [place] [address] 26 Apr, 2012 [facility] [place] [facility] [address] [id number] [place] [address] Apr, [facility] [place] [facility] [address] [id number] [place] [address] Apr, [facility] [place] [facility] [address] [id number] [place] [address] Apr, [facility] [place] [facility] [address] [id number] [place] [address] Apr, [facility] [place] [facility] [address] [id number] [place] [address] Apr, [facility] [place] [facility] [address] [id number] [place] [address] Apr, [facility] [place] [facility] [address] [id number] [place] [address] Apr, [facility] [place] [facility] [address] [id number] [place] [address] Apr, [facility] [place] [facility] [address] [id number] [place] [address] Apr, [facility] [place] [facility] [address] [id number] [place] [address] 25 Mar, 2012 [facility] [place] [facility] [address] [id number] [place] [address] 24 Mar, 2012 [facility] [place] [facility] [address] [id number] [place] [address] 14 Mar, 2012 [facility] [place] [facility] [address] [id number] [place] [address] 04 Mar, 2012 [facility] [place] [facility] [address] [id number] [place] [address] Feb, [facility] [place] [facility] [address] [id number] [place] [address] Feb, [facility] [place] [facility] [address] [id number] [place] [address] 15 Feb, 2012 [facility] [address] [id number], [place] [address] Feb, [facility] [id number], [place] [address] Feb, [facility] [id number], [place] [address] November, [facility] [id number] [place] [address] Aug, [facility] [id number] [place] [address] May, [facility] [id number], [place] [address] May, [facility] [id number], [place] [address] Apr, [facility] [id number], [place] [address] Mar, IMMUNIZATIONS No Known Immunizations SOCIAL HISTORY Never Assessed REASON FOR VISIT FYI PLAN OF CARE VITAL SIGNS MEDICATIONS Unknown [...] Hospitalization History Resp distress with hypoxia, pulmonary fibrosis-[facility] 08/03/16 Hospitalization History Shortness of breath 04/2017
--- OUTSIDE RECORDS SUMMARY | 2017-12-21 17:09 | XMS REPORT ---
Author Author GENEVIEVE JOSE F [facility] Address [address] [place] [address] Care Team Providers Care Rodbuster Name Role Phone GENEVIEVESANTOSHJOSE F Unavailable PROBLEMS Type Condition ICD9-CM Code OKP90-HY Code Onset Dates Condition Status SNOMED Code Problem Psoriasis L40.9 Active 5433396 Problem Rheumatoid arthritis involving multiple sites with positive rheumatoid factor M05.79 Active 252771913 Problem Vision loss, left eye H54.62 Active 75317357 Problem Primary insomnia F51.01 Active 3388693 Problem Other elevated white blood cell (WBC) count D72.828 Active 344321539 Problem Essential hypertension I10 Active 90948239 Problem Hematochezia K92.1 Active 141264108 Problem Type 2 diabetes mellitus with hyperglycemia, without long-term current use of insulin E11.65 Active 30053491 Problem Tobacco use Z72.0 Active 423242395 Problem Renal cyst, right N28.1 Active 69529236 Problem Idiopathic pulmonary fibrosis J84.112 Active 814156962 Problem Chronic obstructive pulmonary disease, unspecified J44.9 Active 59079947 Problem Lactic acidosis E87.2 Active 27707830 Problem Hyperlipidemia E78.5 Active 32945099 ALLERGIES No Information ENCOUNTERS Encounter Location Date Diagnosis [facility] [id number] [address] November, [facility] [id number] [address] Oct, Rheumatoid arthritis involving multiple sites with positive rheumatoid factor M05.79 [facility] [id number] [place] [address] 33901- 7039 Oct, [facility] [id number] [address] Oct, Rheumatoid arthritis involving multiple sites with positive rheumatoid factor M05.79 [facility] [id number] [place] [address] 30351- 6125 Oct, Rheumatoid arthritis involving multiple sites with positive rheumatoid factor M05.79 ; Type 2 diabetes mellitus with hyperglycemia, without long-term current use of insulin E11.65 ; Hyperlipidemia E78.5 and Other elevated white blood cell (WBC) count D72.828 [place] [address] [address]- [address] Oct, Chronic obstructive pulmonary disease, unspecified J44.9 [place] [address] 52457- 4644 Oct, Rheumatoid arthritis involving multiple sites with positive rheumatoid factor M05.79 [facility] [address] 27380- 5047 Oct, Type 2 diabetes mellitus with hyperglycemia, without long- term current use of insulin E11.65 [facility] [address] [address]87- 7196 Sep, [facility] [facility] [address] [address]72- 7502 Sep, Visit for TB skin test Z11.1 ; Rheumatoid arthritis involving multiple sites with positive rheumatoid factor M05.79 and Psoriasis L40.9 [facility] [id number] [place] [address] 37369- 9789 Sep, Type 2 diabetes mellitus with hyperglycemia, without long- term current use of insulin E11.65 ; Rheumatoid arthritis involving multiple sites with positive rheumatoid factor M05.79 ; Hyperlipidemia E78.5 ; Essential hypertension I10 ; Other elevated white blood cell (WBC) count D72.828 ; Primary insomnia F51.01 and Tobacco use Z72.0 [place] [address] [address]- 6031 Sep, [facility] [facility] [address] 02566- 5009 Aug, Type 2 diabetes mellitus with hyperglycemia, without long- term current use of insulin E11.65 and Hyperlipidemia E78.5 [facility] [address] [address] Jul, [facility] [id number] [place] [address] 76514- 1014 Jul, Rheumatoid arthritis involving multiple sites with positive rheumatoid factor M05.79 [facility] [id number] [place] [address] 32546- 3172 Jul, Rheumatoid arthritis involving multiple sites with positive rheumatoid factor M05.79 [facility] [id number] [place] [address] 80563- 3075 Jun, Essential hypertension I10 and Hyperlipidemia E78.5 [facility] [id number] [place] [address] 02928- 6300 Jun, Chronic obstructive pulmonary disease, unspecified J44.9 [facility] [id number] [place] [address] 53077- 9206 Jun, [facility] [id number] [place] [address] 06154- 8320 May, Type 2 diabetes mellitus without complication E11.9 ; Rheumatoid arthritis involving multiple sites with positive rheumatoid factor M05.79 ; Psoriasis L40.9 and Essential hypertension I10 [facility] [address] [place] [address] [id number] May, Dental examination Z01.20 and Dental caries K02.9 [place] [id number] [place] [address] 77389- 7984 Apr, Type 2 diabetes mellitus without complication E11.9 ; Type 2 diabetes mellitus with hyperglycemia, without long-term current use of insulin E11.65 ; Idiopathic pulmonary fibrosis J84.112 ; Essential hypertension I10 ; Tobacco use Z72.0 ; Rheumatoid arthritis involving multiple sites with positive rheumatoid factor M05.79 ; Hyperlipidemia E78.5 and Chronic obstructive pulmonary disease, unspecified J44.9 [place] [id number] [place] [address] 89899- 2418 Apr, Dental examination Z01.20 [facility] [address], [place] [address] 48[address] Apr, [facility] [address], [place] [address]- 2086 Apr, [facility] [address], [place] [address]- 0890 Apr, [facility] [id number] [place] [address] 32281- 9894 Apr, [facility] [address], [place] [address]- 3196 Apr, [facility] [id number] [place] [address] 87542- 3172 Apr, Type 2 diabetes mellitus without complication E11.9 and Essential hypertension I10 [facility] [id number] [address] 7190 Mar, [facility] [address], [place] [address]- 1329 Mar, Rheumatoid arthritis involving multiple sites with positive rheumatoid factor M05.79 [facility] [address] [place] [address] 85763- 5901 Mar, Type 2 diabetes mellitus without complication E11.9 ; Essential hypertension I10 and Hyperlipidemia E78.5 [facility] [address], [place] [address]- 3661 Mar, Rheumatoid arthritis involving multiple sites with positive rheumatoid factor M05.79 [facility] [address], [place] [address]- 5390 Mar, [facility] [address] [place] [address] 98233- 1162 Mar, Hyperlipidemia E78.5 ; Essential hypertension I10 and Type 2 diabetes mellitus without complication E11.9 [facility] [address], [place] [address]- 1173 Feb, Rheumatoid arthritis involving multiple sites with positive rheumatoid factor M05.79 and Essential hypertension I10 [facility] [address] [place] [address] 43443- 0861 Jan, Rheumatoid arthritis involving multiple sites with positive rheumatoid factor M05.79 [facility] [address], [place] [address]- 0548 Dec, Rheumatoid arthritis involving multiple sites with positive rheumatoid factor M05.79 [facility] [id number] [place] [address] 69839- 5503 Dec, [facility] [id number] [place] [address] 09460- 3000 November, Rheumatoid arthritis involving multiple sites with positive rheumatoid factor M05.79 and Psoriasis L40.9 [facility] [place] [id number] [place] [address] 18413- 8874 November, Hyperlipidemia E78.5 [facility] [id number] [place] [address] 16473- 9085 November, Type 2 diabetes mellitus without complication E11.9 [facility] [id number] [place] [address] 58137- 5619 November, [facility] [address] [place] [address] 03367- 3505 November, Rheumatoid arthritis involving multiple sites with positive rheumatoid factor M05.79 ; Hyperlipidemia E78.5 ; Type 2 diabetes mellitus without complication E11.9 ; Idiopathic pulmonary fibrosis J84.112 and Tobacco use Z72.0 [facility] [address] [address]- 3993 Oct, Essential hypertension I10 and Rheumatoid arthritis involving multiple sites with positive rheumatoid factor M05.79 [facility] [address], [place] [address]- 6902 Sep, Rheumatoid arthritis involving multiple sites with positive rheumatoid factor M05.79 and Psoriasis L40.9 [facility] [address] [place] [address] 82341- 1359 Jul, Rheumatoid arthritis involving multiple sites with positive rheumatoid factor M05.79 [address] [id number] [place] [address] 54546- 1319 Jul, Idiopathic pulmonary fibrosis J84.112 [facility] [id number] [place] [id number] Jul, [address] [address]- 0872 Jul, Idiopathic pulmonary fibrosis J84.[address] 85353- 9775 Jul, Idiopathic pulmonary fibrosis J84.112 and Hypoxia R09.02 [address] [address] [id number] [place] [address] 71723- 5136 Jul, Cough R05 and Idiopathic pulmonary fibrosis J84.112 [address] [id number] [place] [address] 44818- 8210 Apr, Type 2 diabetes mellitus without complication E11.9 ; Rheumatoid arthritis involving multiple sites with positive rheumatoid factor M05.79 ; Psoriasis L40.9 ; Hyperlipidemia E78.5 ; Idiopathic pulmonary fibrosis J84.112 and Essential hypertension I10 [place] [address] [id number] [place] [address] 32001- 2038 Feb, [place] [id number] [place] [address] 12841- 5565 Feb, [address] [address] [id number] [place] [address] 59548- 2547 Dec, Right ankle gives way M25.[address] 02797- 6128 November, [place] [id number] [place] [address] 29304- 7792 November, Wrist pain, left M25.[address] 13936- 1200 Sep, Psoriasis L40.9 [facility] [address] [place] [address] 56033- 6063 Sep, COPD exacerbation J44.1 [facility] [id number] [place] [address] 46396- 4914 15 Aug, 2015 [facility] [id number] [place] [address] 31762- 5088 Aug, Rheumatoid arthritis involving multiple sites with positive rheumatoid factor M05.79 and Hyperlipidemia E78.5 [facility] [id number] [place] [address] 90717- 4039 Aug, [facility] [id number] [place] [address] 32909- 0648 Aug, Psoriasis L40.9 ; Rheumatoid arthritis involving multiple sites with positive rheumatoid factor M05.79 and Essential hypertension I10 [facility] [id number] [place] [address] 88573- 5274 Jul, [facility] [id number] [place] [address] 95067- 6074 Jul, [facility] [id number] [place] [address] 51905- 0876 Jul, Type 2 diabetes mellitus without complication E11.9 ; Hyperlipidemia E78.5 and Rheumatoid arthritis involving multiple sites with positive rheumatoid factor M05.79 [facility] [address] [place] [address] 19974- 0905 Jun, [facility] [id number] [place] [address] 15878- 6493 Apr, [facility] [id number] [place] [address] 61154- 6535 Mar, [facility] [address] [place] [address] 25061- 4202 Mar, [facility] [id number] [place] [address] 14444- 0901 Mar, Rheumatoid arthritis 714.0 ; Other psoriasis 696.1 and Cellulitis, axillary fold 682.3 [facility] [address], [place] [address]- 6106 Jan, [facility] [id number], [place] [address]- 1370 Dec, [facility] [id number] [place] [address] 00924- 8511 Dec, Other and unspecified hyperlipidemia 272.4 ; Other psoriasis 696.1 and Diabetes mellitus without mention of complication, type II or unspecified type, not stated as uncontrolled 250.00 [facility] [address] [address] 7621 Dec, [facility] [id number] [place] [address] 05271- 9235 November, [facility] [address] [address]- 7446 Oct, [facility] [address], [place] [address]- 9804 Oct, [facility] [address] [address] 2304 Sep, [facility] [address], [place] [address]- 0077 Sep, [facility] [address] [address] 8949 Sep, [facility] [address], [place] [address]- 9971 Sep, [facility] [address] 6150 Sep, [facility] [address], [place] [address]- 2285 Sep, [facility] [address] [place] [address]- 4706 13 Sep, 2014 [facility] [address] [id number] [place] [address]- 7768 13 Sep, 2014 [facility] [place] [facility] [address] [id number] [place] [address]- 2886 03 Sep, 2014 [facility] [address] [id number] [place] [address]- 3109 03 Sep, 2014 [facility] [address] [id number] [place] [address]- 7486 19 Jul, 2014 [facility] [address] [id number] [place] [address]- 6984 19 Jul, 2014 [facility] [address] [id number] [place] [address]- 2904 16 Jul, 2014 [facility] [address] [id number] [place] [address]- 8327 16 Jul, 2014 [facility] [address] [id number] [place] [address]- 2708 15 Jul, 2014 [facility] [address] [id number] [place] [address]- 9663 15 Jul, 2014 [facility] [address] [id number] [place] [address]- 0266 13 Jul, 2014 [facility] [address] [id number] [place] [address]- 6308 13 Jul, 2014 [facility] [address] [id number] [place] [address]- 8077 Jun, [facility] [place] [facility] [address] [id number] [place] [address]- 2499 Jun, [facility] [place] [facility] [address] [id number] [place] [address]- 9636 Jun, [facility] [place] [facility] [address] [id number] [place] [address]- 2677 Jun, [facility] [place] [facility] [address] [id number] [place] [address]- 3962 Jun, [facility] [place] [facility] [address] [id number] [place] [address]- 4449 Jun, [facility] [place] [facility] [address] [id number] [place] 1942 Apr, [facility] [place] [facility] [address] [id number] [place] [address]- 5491 Apr, [facility] [place] [facility] [address] [id number] [place] 7984 Mar, [facility] [place] [facility] [address] [id number] [place] [address]- 5391 Mar, [facility] [place] [facility] [address] [id number] [place] [address]- 2758 Feb, [facility] [place] [facility] [address] [id number] [place] [address]- 2338 Feb, [facility] [place] [facility] [address] [id number] [place] [address]- 0612 Jan, [facility] [place] [facility] [address] [id number] [place] [address]- 0644 Jan, [facility] [place] [facility] [address] [id number] [address]- 3386 Jan, [facility] [place] [facility] [address] [id number], [place] [address]- 4837 Jan, [facility] [place] [facility] [address] [id number] [place] [address]- 2306 Jan, [facility] [place] [facility] [address] [id number] [place] [address]- 9514 Dec, [facility] [place] [facility] [address] [id number] [place] [address]- 9630 Dec, [facility] [place] [facility] [address] [id number], [place] [address]- 0889 Dec, [facility] [place] [facility] [address] [id number] [place] [address]- 8842 Dec, [facility] [place] [facility] [address] [facility] [id number] [place] [address]- 6111 November, [facility] [place] [facility] [address] [facility] [id number] [place] [address]- 8017 November, [facility] [place] [facility] [address] [facility] [id number] [place] [address]- 2411 Oct, [facility] [place] [facility] [address] [facility] [id number] [place] [address]- 5233 Oct, [facility] [place] [facility] [address] [facility] [id number] [place] [address]- 0941 Sep, [facility] [place] [facility] [address] [facility] [id number] [place] [address]- 8123 Sep, [facility] [place] [facility] [address] [facility] [id number] [place] [address]- 7869 Sep, [facility] [place] [facility] [address] [facility] [id number] [place] [address]- 3990 Sep, [facility] [place] [facility] [address] [facility] [id number] [place] [address]- 2808 Aug, [facility] [place] [facility] [address] [facility] [id number] [place] [address]- 6520 Aug, [facility] [place] [facility] [address] [facility] [id number] [place] [address]- 2195 Aug, [facility] [place] [facility] [address] [id number] [place] [address]- 1932 Aug, [facility] [place] [facility] [address] [facility] [id number] [place] [address]- 9686 Aug, [facility] [place] [facility] [address] [facility] [id number] [place] [address]- 5746 Aug, [facility] [place] [facility] [address] [id number] [place] [address]- 8162 Jul, [facility] [address] [id number] [place] [address]- 6261 Jul, [facility] [place] [facility] [address] [id number] [place] [address]- 2132 Jul, [facility] [place] [facility] [address] [id number] [place] [address]- 7749 Jul, [facility] [address] [id number] [place] [address]- 2729 Jul, [facility] [place] [facility] [address] [id number] [place] [address]- 0501 Jul, [facility] [address] [id number] [place] [address]- 5381 Jul, [facility] [address] [id number] [place] [address]- 9952 Jul, [facility] [place] [facility] [address] [id number] [place] [address]- 1221 Jun, [facility] [place] [facility] [address] [id number] [place] 8650 Jun, [facility] [place] [facility] [address] [id number] [place] [address]- 2263 Jun, [facility] [place] [facility] [address] [id number], [place] [address]- 1950 Jun, [facility] [place] [facility] [address] [id number] [place] [address]- 5689 Jun, [facility] [place] [facility] [address] [id number] [place] [address]- 9176 Jun, [facility] [place] [facility] [address] [id number] [place] [address]- 4425 May, [facility] [place] [facility] [address] [id number], [place] [address]- 6858 May, [facility] [place] [facility] [address] [id number] [place] [address]- 0041 May, [facility] [place] [facility] [address] [id number] [place] [address]- 1760 May, [facility] [place] [facility] [address] [id number] [place] [address]- 1922 Apr, [facility] [place] [facility] [address] [id number] [place] [address]- 7182 Apr, [facility] [place] [facility] [address] [id number] [place] [address]- 5617 Apr, [facility] [place] [facility] [address] [id number] [place] [address]- 9953 Apr, [facility] [place] [facility] [address] [id number] [place] [address]- 8122 25 Mar, 2013 [facility] [place] [facility] [address] [id number] [place] [address]- 2830 23 Mar, 2013 [facility] [place] [facility] [address] [id number] [place] [address]- 1832 16 Mar, 2013 [facility] [place] [facility] [address] [id number] [place] [address]- 3325 12 Mar, 2013 [facility] [place] [facility] [address] [id number] [place] [address]- 7879 09 Mar, 2013 [facility] [place] [facility] [address] [id number] [place] [address]- 6545 Mar, [facility] [place] [facility] [address] [id number] [place] [address]- 1072 Feb, [facility] [place] [facility] [address] [id number] [place] [address]- 2257 Feb, [facility] [place] [facility] [address] [id number] [place] [address]- 1077 Feb, [facility] [place] [facility] [address] [id number] [place] [address]- 0842 Feb, [facility] [address] [id number] [place] [address]- 8973 Jan, [facility] [place] [facility] [address] [id number] [place] [address] 2546 Dec, [facility] [place] [facility] [address] [id number] [place] [address]- 2626 November, [facility] [place] [facility] [address] [id number] [place] [address]- 4197 Sep, [facility] [place] [facility] [address] [id number] [place] [address]- 4066 Aug, [facility] [place] [facility] [address] [id number] [place] [address]- 3000 Aug, [facility] [place] [facility] [address] [id number] [place] [address]- 7865 Jul, [facility] [address] [id number] [place] [address]- 5536 Jul, [facility] [address] [id number] [place] [address]- 7921 Jun, [facility] [address] [id number] [place] [address] Jun, [facility] [place] [facility] [address] [id number] [place] [address] Jun, [facility] [place] [facility] [address] [id number] [place] [address] Jun, [facility] [place] [facility] [address] [id number] [place] [address] Jun, [facility] [place] [facility] [address] [id number] [place] [address] Jun, [facility] [place] [facility] [address] [id number] [place] [address] 30 May, 2012 [facility] [place] [facility] [address] [id number] [place] [address] 29 May, 2012 [facility] [place] [facility] [address] [id number] [place] [address] 28 May, 2012 [facility] [place] [facility] [address] [id number] [place] [address] 28 May, 2012 [facility] [place] [facility] [address] [id number] [place] [address] May, [facility] [place] [facility] [address] [id number] [place] [address] 27 May, 2012 [facility] [place] [facility] [address] [id number] [place] [address] 15 May, 2012 [facility] [place] [facility] [address] [id number] [place] [address] 15 May, 2012 [facility] [place] [facility] [address] [id number], [place] [address] 14 May, 2012 [facility] [place] [facility] [address] [id number] [place] [address] 14 May, 2012 [facility] [place] [facility] [address] [facility] [id number] [place] [address] 12 May, 2012 [facility] [place] [facility] [address] [id number], [place] [address] 12 May, 2012 [facility] [place] [facility] [address] [id number], [place] [address] 10 May, 2012 [facility] [place] [facility] [address] [id number] [place] [address] 10 May, 2012 [facility] [place] [facility] [address] [id number], [place] [address] 08 May, 2012 [facility] [place] [facility] [address] [id number], [place] [address] 26 Apr, 2012 [facility] [place] [facility] [address] [id number] [place] [address] Apr, [facility] [place] [facility] [address] [id number] [place] [address] Apr, [facility] [place] [facility] [address] [id number] [place] [address] Apr, [facility] [place] [facility] [address] [id number] [place] [address] Apr, [facility] [place] [facility] [address] [id number] [place] [address] Apr, [facility] [place] [facility] [address] [id number] [place] [address] Apr, [facility] [place] [facility] [address] [id number] [place] [address] Apr, [facility] [place] [facility] [address] [id number] [place] [address] Apr, [facility] [place] [facility] [address] [id number] [place] [address] Apr, [facility] [place] [facility] [address] [id number] [place] [address] 25 Mar, 2012 [facility] [place] [facility] [address] [id number] [place] [address] 24 Mar, 2012 [facility] [place] [facility] [address] [id number] [place] [address] 14 Mar, 2012 [facility] [place] [facility] [address] [id number] [place] [address] 04 Mar, 2012 [facility] [place] [facility] [address] [id number] [place] [address] Feb, [facility] [place] [facility] [address] [id number] [place] [address] Feb, [facility] [place] [facility] [address] [id number] [place] [address] 15 Feb, 2012 [facility] [address] [facility] [id number], [place] [address] Feb, [facility] [address] [id number], [place] [address] Feb, [facility] [id number], [place] [address] November, [facility] [id number], [place] [address] Aug, [facility] [id number], [place] [address] May, [facility] [id number], [place] [address] May, [facility] [id number], [place] [address] Apr, [facility] [id number], [place] [address] Mar, IMMUNIZATIONS No Known Immunizations SOCIAL HISTORY Never Assessed REASON FOR VISIT Medication Requests PLAN OF CARE VITAL SIGNS MEDICATIONS Medication Instructions Dosage Frequency Start Date End Date Duration Status PredniSONE 20 mg Orally Once a day 2 tablets 24h Mar, Mar, 8 days Active Hydroxychloroquine Sulfate 200 mg Orally Once a day 2 tablet with food or milk 24h 90 days Active Piroxicam 20 mg Orally Once a day 1 capsule with food 24h Active Azithromycin 250 MG Orally Once a day 2 tablets on the first day, then 1 tablet daily for 4 days 24h Mar, Mar, 5 day(s) Active RESULTS No Results PROCEDURES No Known [...] Hospitalization History Resp distress with hypoxia, pulmonary fibrosis-[facility] 08/03/16 Hospitalization History Shortness of breath 04/2017
--- OUTSIDE RECORDS SUMMARY | 2017-12-21 17:10 | XMS REPORT ---
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 Name Role Phone GENEVIEVESANTOSH LEMAHANY Unavailable PROBLEMS Type Condition ICD9-CM Code [id number] Code Onset Dates Condition Status SNOMED Code Problem Psoriasis L40.9 Active 5144844 Problem Rheumatoid arthritis involving multiple sites with positive rheumatoid factor M05.79 Active 975614262 Problem Vision loss, left eye H54.62 Active 04190923 Problem Primary insomnia F51.01 Active 9724622 Problem Other elevated white blood cell (WBC) count D72.828 Active 590644939 Problem Essential hypertension I10 Active 54754917 Problem Hematochezia K92.1 Active 877086804 Problem Type 2 diabetes mellitus with hyperglycemia, without long-term current use of insulin E11.65 Active 43777061 Problem Tobacco use Z72.0 Active 064553563 Problem Renal cyst, right N28.1 Active 73115508 Problem Idiopathic pulmonary fibrosis J84.112 Active 604683606 Problem Chronic obstructive pulmonary disease, unspecified J44.9 Active 85969349 Problem Lactic acidosis E87.2 Active 99728729 Problem Hyperlipidemia E78.5 Active 68803167 ALLERGIES No Information ENCOUNTERS Encounter Location Date Diagnosis [facility] [id number], [place] [address] November, [facility] [id number], [place] [address] Oct, Rheumatoid arthritis involving multiple sites with positive rheumatoid factor M05.79 [facility] [id number] [place] [address] 05818- 0775 Oct, [facility] [id number], [place] [address] Oct, Rheumatoid arthritis involving multiple sites with positive rheumatoid factor M05.79 [id number] [place] [address] 19722- 5151 Oct, Rheumatoid arthritis involving multiple sites with positive rheumatoid factor M05.79 ; Type 2 diabetes mellitus with hyperglycemia, without long-term current use of insulin E11.65 ; Hyperlipidemia E78.5 and Other elevated white blood cell (WBC) count D72.828 [place] [address] [address] Oct, Chronic obstructive pulmonary disease, unspecified J44.9 [address] [place] [address] [address]- 0017 Oct, Rheumatoid arthritis involving multiple sites with positive rheumatoid factor M05.79 [address] [place] [address] [address]- 7[address] Oct, Type 2 diabetes mellitus with hyperglycemia, without long- term current use of insulin E11.65 [address] [place] [address] [address]- [address] Sep, [place] [address] [address]- [address] Sep, Rheumatoid arthritis involving multiple sites with positive rheumatoid factor M05.79 ; Visit for TB skin test Z11.1 and Psoriasis L40.9 [id number] [place] [address] 09971- 0460 Sep, Type 2 diabetes mellitus with hyperglycemia, without long- term current use of insulin E11.65 ; Rheumatoid arthritis involving multiple sites with positive rheumatoid factor M05.79 ; Hyperlipidemia E78.5 ; Essential hypertension I10 ; Other elevated white blood cell (WBC) count D72.828 ; Primary insomnia F51.01 and Tobacco use Z72.0 [place] [address] [address]- [address]20 Sep, [place] [id number] [place] [address] 62043- 5179 Aug, Type 2 diabetes mellitus with hyperglycemia, without long- term current use of insulin E11.65 and Hyperlipidemia E78.5 [facility] [address], [place] [address] Jul, [facility] [address] [place] [address] 30576- 2844 Jul, Rheumatoid arthritis involving multiple sites with positive rheumatoid factor M05.79 [place] [id number] [place] [address] 95108- 1194 Jul, Rheumatoid arthritis involving multiple sites with positive rheumatoid factor M05.79 [place] [id number] [place] [address] 97455- 1224 Jun, Essential hypertension I10 and Hyperlipidemia E78.5 [place] [id number] [place] [address] 78205- 9943 Jun, Chronic obstructive pulmonary disease, unspecified J44.9 [place] [id number] [place] [address] 36066- 3265 Jun, [place] [address] [place] [address] 11103- 9166 May, Type 2 diabetes mellitus without complication E11.9 ; Rheumatoid arthritis involving multiple sites with positive rheumatoid factor M05.79 ; Psoriasis L40.9 and Essential hypertension I10 [facility] [address] [place] [address] [id number] May, Dental examination Z01.20 and Dental caries K02.9 [place] [address] [place] [address] 55489- 4520 Apr, Type 2 diabetes mellitus without complication E11.9 ; Type 2 diabetes mellitus with hyperglycemia, without long-term current use of insulin E11.65 ; Idiopathic pulmonary fibrosis J84.112 ; Essential hypertension I10 ; Tobacco use Z72.0 ; Rheumatoid arthritis involving multiple sites with positive rheumatoid factor M05.79 ; Hyperlipidemia E78.5 and Chronic obstructive pulmonary disease, unspecified J44.9 [place] [address] [place] [address] 51916- 3463 Apr, Dental examination Z01.20 [facility] [address], [place] [address]- 67[address] Apr, [facility] [address], [place] [address]- 6589 Apr, [facility] [address], [place] [address]- 3095 Apr, [facility] [id number] [place] [address] 76694- 7813 Apr, [facility] [address], [place] [address]- 7113 Apr, [facility] [id number] [place] [address] 84744- 5355 Apr, Type 2 diabetes mellitus without complication E11.9 and Essential hypertension I10 [facility] [id number] [address] 8[address] Mar, [facility] [address], [place] [address]- 8628 Mar, Rheumatoid arthritis involving multiple sites with positive rheumatoid factor M05.79 [facility] [address] [place] [address] 30522- 9274 Mar, Type 2 diabetes mellitus without complication E11.9 ; Essential hypertension I10 and Hyperlipidemia E78.5 [facility] [address], [place] [address]- 3[address] Mar, Rheumatoid arthritis involving multiple sites with positive rheumatoid factor M05.79 [facility] [address], [place] [address]- 6394 Mar, [facility] [address] [place] [address] 82371- 7860 Mar, Hyperlipidemia E78.5 ; Essential hypertension I10 and Type 2 diabetes mellitus without complication E11.9 [facility] [address], [place] [address]- 8842 Feb, Rheumatoid arthritis involving multiple sites with positive rheumatoid factor M05.79 and Essential hypertension I10 [facility] [address] [place] [address] 47427- 6920 Jan, Rheumatoid arthritis involving multiple sites with positive rheumatoid factor M05.79 [facility] [address], [place] [address]- 7537 Dec, Rheumatoid arthritis involving multiple sites with positive rheumatoid factor M05.79 [facility] [id number] [place] [address] 46419- 9985 Dec, [facility] [id number] [place] [address] 60306- 6976 November, Rheumatoid arthritis involving multiple sites with positive rheumatoid factor M05.79 and Psoriasis L40.9 [place] [id number] [place] [address] 78777- 2491 November, Hyperlipidemia E78.5 [facility] [address] [place] [address] 95167- 0187 November, Type 2 diabetes mellitus without complication E11.9 [facility] [address] [place] [address] 72380- 6939 November, [facility] [address] [place] [address] 01745- 4847 November, Rheumatoid arthritis involving multiple sites with positive rheumatoid factor M05.79 ; Hyperlipidemia E78.5 ; Type 2 diabetes mellitus without complication E11.9 ; Idiopathic pulmonary fibrosis J84.112 and Tobacco use Z72.0 [facility] [address], [place] [address]- 5285 Oct, Essential hypertension I10 and Rheumatoid arthritis involving multiple sites with positive rheumatoid factor M05.79 [facility] [address], [place] [address]- 6940 Sep, Rheumatoid arthritis involving multiple sites with positive rheumatoid factor M05.79 and Psoriasis L40.9 [facility] [address] [place] [address] 15656- 9530 Jul, Rheumatoid arthritis involving multiple sites with positive rheumatoid factor M05.79 [id number] [place] [address] 12629- 2370 Jul, Idiopathic pulmonary fibrosis J84.112 [facility] [id number] [place] [id number] Jul, [address] 95702- 5139 Jul, Idiopathic pulmonary fibrosis J84.[address] 26541- 4899 Jul, Idiopathic pulmonary fibrosis J84.112 and Hypoxia R09.02 [id number] [place] [address] 58760- 0755 Jul, Cough R05 and Idiopathic pulmonary fibrosis J84.112 [id number] [place] [address] 44274- 5921 Apr, Type 2 diabetes mellitus without complication E11.9 ; Rheumatoid arthritis involving multiple sites with positive rheumatoid factor M05.79 ; Psoriasis L40.9 ; Hyperlipidemia E78.5 ; Idiopathic pulmonary fibrosis J84.112 and Essential hypertension I10 [id number] [place] [address] 36762- 6844 Feb, [id number] [place] [address] 48866- 6785 Feb, [address] [id number] [place] [address] 19084- 7001 Dec, Right ankle gives way M25.[address] 44497- 3730 November, [address] [id number] [place] [address] 27311- 9394 November, Wrist pain, left M25.[address] 45772- 1732 Sep, Psoriasis L40.9 [facility] [address] [place] [address] 63133- 5013 Sep, COPD exacerbation J44.1 [facility] [id number] [place] [address] 98331- 5758 15 Aug, 2015 [facility] [id number] [place] [address] 49404- 7869 Aug, Rheumatoid arthritis involving multiple sites with positive rheumatoid factor M05.79 and Hyperlipidemia E78.5 [facility] [id number] [place] [address] 70446- 1523 Aug, [facility] [id number] [place] [address] 73188- 0589 Aug, Psoriasis L40.9 ; Rheumatoid arthritis involving multiple sites with positive rheumatoid factor M05.79 and Essential hypertension I10 [facility] [id number] [place] [address] 81278- 3334 Jul, [facility] [id number] [place] [address] 45549- 5078 Jul, [facility] [id number] [place] [address] 51298- 8095 Jul, Type 2 diabetes mellitus without complication E11.9 ; Hyperlipidemia E78.5 and Rheumatoid arthritis involving multiple sites with positive rheumatoid factor M05.79 [facility] [address] [place] [address] 04849- 2824 Jun, [facility] [address] [place] [address] 91705- 9965 Apr, [facility] [id number] [place] [address] 74278- 9261 Mar, [facility] [address] [place] [address] 52879- 7865 Mar, [facility] [id number] [place] [address] 40626- 3148 Mar, Rheumatoid arthritis 714.0 ; Other psoriasis 696.1 and Cellulitis, axillary fold 682.3 [facility] [address], [place] [address]- 7166 Jan, [facility] [id number] [place] [address]- 9185 Dec, [facility] [id number] [place] [address] 20624- 7652 Dec, Other and unspecified hyperlipidemia 272.4 ; Other psoriasis 696.1 and Diabetes mellitus without mention of complication, type II or unspecified type, not stated as uncontrolled 250.00 [facility] [address] [address] 7860 Dec, [facility] [id number] [place] [address] 63819- 7923 November, [facility] [address], [place] [address]- 3991 Oct, [facility] [address] [address]- 2000 Oct, [facility] [address] [address] 7388 Sep, [facility] [address], [place] [address]- 4395 Sep, [facility] [address] [address]- 8605 Sep, [facility] [address], [place] [address]- 5176 Sep, [facility] [address] 4710 Sep, [facility] [address], [place] [address]- 9995 Sep, [facility] [address] [place] [address]- 4701 13 Sep, 2014 [facility] [address] [id number] [place] [address]- 9753 13 Sep, 2014 [facility] [place] [facility] [address] [id number] [place] [address]- 9486 03 Sep, 2014 [facility] [address] [id number] [place] [address]- 1891 03 Sep, 2014 [facility] [address] [id number] [place] [address]- 2606 19 Jul, 2014 [facility] [address] [id number] [place] [address]- 1845 19 Jul, 2014 [facility] [address] [id number] [place] [address]- 6327 16 Jul, 2014 [facility] [address] [id number] [place] [address]- 3594 16 Jul, 2014 [facility] [address] [id number] [place] [address]- 8971 15 Jul, 2014 [facility] [address] [id number] [place] [address]- 7179 15 Jul, 2014 [facility] [address] [id number] [place] [address]- 8306 13 Jul, 2014 [facility] [address] [id number] [place] [address]- 0574 13 Jul, 2014 [facility] [address] [id number] [place] [address]- 2280 Jun, [facility] [place] [facility] [address] [id number] [place] [address]- 2942 Jun, [facility] [place] [facility] [address] [id number] [place] [address]- 4287 Jun, [facility] [place] [facility] [address] [id number] [place] [address]- 5994 Jun, [facility] [place] [facility] [address] [id number] [place] [address]- 4399 Jun, [facility] [place] [facility] [address] [id number] [place] [address]- 3442 Jun, [facility] [place] [facility] [address] [id number] [place] 1569 Apr, [facility] [place] [facility] [address] [id number] [place] [address]- 7368 Apr, [facility] [place] [facility] [address] [id number] [place] 6712 Mar, [facility] [place] [facility] [address] [id number] [place] [address]- 9055 Mar, [facility] [place] [facility] [address] [id number] [place] [address]- 0348 Feb, [facility] [place] [facility] [address] [id number] [place] [address]- 9508 Feb, [facility] [place] [facility] [address] [id number] [place] [address]- 2004 Jan, [facility] [place] [facility] [address] [id number] [place] [address]- 8331 Jan, [facility] [place] [facility] [address] [id number], [place] [address]- 2125 Jan, [facility] [place] [facility] [address] [id number], [place] [address]- 3005 Jan, [facility] [place] [facility] [address] [id number] [place] [address]- 1622 Jan, [facility] [place] [facility] [address] [id number] [place] [address]- 6615 Dec, [facility] [place] [facility] [address] [id number] [place] [address]- 1338 Dec, [facility] [place] [facility] [address] [id number], [place] [address]- 4743 Dec, [facility] [place] [facility] [address] [id number] [place] [address]- 2767 Dec, [facility] [place] [facility] [address] [facility] [id number] [place] [address]- 8024 November, [facility] [place] [facility] [address] [facility] [id number] [place] [address]- 9924 November, [facility] [place] [facility] [address] [facility] [id number] [place] [address]- 8660 Oct, [facility] [place] [facility] [address] [facility] [id number] [place] [address]- 7281 Oct, [facility] [place] [facility] [address] [facility] [id number] [place] [address]- 1887 Sep, [facility] [place] [facility] [address] [facility] [id number] [place] [address]- 8206 Sep, [facility] [place] [facility] [address] [facility] [id number] [place] [address]- 0311 Sep, [facility] [place] [facility] [address] [facility] [id number] [place] [address]- 5330 Sep, [facility] [place] [facility] [address] [facility] [id number] [place] [address]- 7310 Aug, [facility] [place] [facility] [address] [facility] [id number] [place] [address]- 4208 Aug, [facility] [place] [facility] [address] [facility] [id number] [place] [address]- 7874 Aug, [facility] [place] [facility] [address] [id number] [place] [address]- 2394 Aug, [facility] [place] [facility] [address] [facility] [id number] [place] [address]- 7525 Aug, [facility] [place] [facility] [address] [facility] [id number] [place] [address]- 1736 Aug, [facility] [place] [facility] [address] [id number] [place] [address]- 3166 Jul, [facility] [address] [id number] [place] [address]- 7537 Jul, [facility] [place] [facility] [address] [id number] [place] [address]- 4735 Jul, [facility] [place] [facility] [address] [id number] [place] [address]- 7235 Jul, [facility] [address] [id number] [place] [address]- 6839 Jul, [facility] [place] [facility] [address] [id number] [place] [address]- 9947 Jul, [facility] [address] [id number] [place] [address]- 8153 Jul, [facility] [address] [id number] [place] [address]- 9616 Jul, [facility] [place] [facility] [address] [id number] [place] [address]- 0136 Jun, [facility] [place] [facility] [address] [id number] [place] 9561 Jun, [facility] [place] [facility] [address] [id number] [place] [address]- 1294 Jun, [facility] [place] [facility] [address] [id number], [place] [address]- 5459 Jun, [facility] [place] [facility] [address] [id number] [place] [address] Jun, [facility] [place] [facility] [address] [id number] [place] [address] Jun, [facility] [place] [facility] [address] [id number] [place] [address] May, [facility] [place] [facility] [address] [id number], [place] [address] May, [facility] [place] [facility] [address] [id number] [place] [address] May, [facility] [place] [facility] [address] [id number] [place] [address] May, [facility] [place] [facility] [address] [id number] [place] [address] Apr, [facility] [place] [facility] [address] [id number] [place] [address] Apr, [facility] [place] [facility] [address] [id number] [place] [address] Apr, [facility] [place] [facility] [address] [id number] [place] [address] Apr, [facility] [place] [facility] [address] [id number] [place] [address] 25 Mar, 2013 [facility] [place] [facility] [address] [id number] [place] [address] 23 Mar, 2013 [facility] [place] [facility] [address] [id number] [place] [address] 16 Mar, 2013 [facility] [place] [facility] [address] [id number] [place] [address] 12 Mar, 2013 [facility] [place] [facility] [address] [id number] [place] [address] 09 Mar, 2013 [facility] [place] [facility] [address] [id number] [place] [address] Mar, [facility] [place] [facility] [address] [id number] [place] [address] Feb, [facility] [place] [facility] [address] [id number] [place] [address] Feb, [facility] [place] [facility] [address] [id number] [place] [address] Feb, [facility] [place] [facility] [address] [id number] [place] [address] Feb, [facility] [address] [id number] [place] [address] Jan, [facility] [place] [facility] [address] [id number] [place] [address] Dec, [facility] [place] [facility] [address] [id number] [place] [address] November, [facility] [place] [facility] [address] [id number] [place] [address] Sep, [facility] [place] [facility] [address] [id number] [place] [address] Aug, [facility] [place] [facility] [address] [id number] [place] [address] Aug, [facility] [place] [facility] [address] [id number] [place] [address] Jul, [facility] [address] [id number] [place] [address] Jul, [facility] [address] [id number] [place] [address] Jun, [facility] [address] [id number] [place] [address] Jun, [facility] [place] [facility] [address] [id number] [place] [address] Jun, [facility] [place] [facility] [address] [id number] [place] [address] Jun, [facility] [place] [facility] [address] [id number] [place] [address] Jun, [facility] [place] [facility] [address] [id number] [place] [address] Jun, [facility] [place] [facility] [address] [id number] [place] [address] 30 May, 2012 [facility] [place] [facility] [address] [id number] [place] [address] 29 May, 2012 [facility] [place] [facility] [address] [id number] [place] [address] 28 May, 2012 [facility] [place] [facility] [address] [id number] [place] [address] 28 May, 2012 [facility] [place] [facility] [address] [id number] [place] [address] May, [facility] [place] [facility] [address] [id number] [place] [address] 27 May, 2012 [facility] [place] [facility] [address] [id number] [place] [address] 15 May, 2012 [facility] [place] [facility] [address] [id number] [place] [address] 15 May, 2012 [facility] [place] [facility] [address] [id number], [place] [address] 14 May, 2012 [facility] [place] [facility] [address] [id number] [place] [address] 14 May, 2012 [facility] [place] [facility] [address] [facility] [id number] [place] [address] 12 May, 2012 [facility] [place] [facility] [address] [id number], [place] [address] 12 May, 2012 [facility] [place] [facility] [address] [id number], [place] [address] 10 May, 2012 [facility] [place] [facility] [address] [id number] [place] [address] 10 May, 2012 [facility] [place] [facility] [address] [id number], [place] [address] 08 May, 2012 [facility] [place] [facility] [address] [id number], [place] [address] 26 Apr, 2012 [facility] [place] [facility] [address] [id number] [place] [address] Apr, [facility] [place] [facility] [address] [id number] [place] [address] Apr, [facility] [place] [facility] [address] [id number] [place] [address] Apr, [facility] [place] [facility] [address] [id number] [place] [address] Apr, [facility] [place] [facility] [address] [id number] [place] [address] Apr, [facility] [place] [facility] [address] [id number] [place] [address] Apr, [facility] [place] [facility] [address] [id number] [place] [address] Apr, [facility] [place] [facility] [address] [id number] [place] [address] Apr, [facility] [place] [facility] [address] [id number] [place] [address] Apr, [facility] [place] [facility] [address] [id number] [place] [address] 25 Mar, 2012 [facility] [place] [facility] [address] [id number] [place] [address] 24 Mar, 2012 [facility] [place] [facility] [address] [id number] [place] [address] 14 Mar, 2012 [facility] [place] [facility] [address] [id number] [place] [address] 98[address] 04 Mar, 2012 [facility] [place] [facility] [address] [id number] [place] [address] Feb, [facility] [place] [facility] [address] [id number] [place] [address] Feb, [facility] [place] [facility] [address] [id number] [place] [address] 15 Feb, 2012 [facility] [address] [id number], [place] [address] Feb, [facility] [id number], [place] [address] Feb, [facility] [id number], [place] [address] November, [facility] [id number] [place] [address] Aug, [facility] [id number] [place] [address] May, [facility] [id number], [place] [address] May, [facility] [id number], [place] [address] Apr, [facility] [id number], [place] [address] Mar, IMMUNIZATIONS No Known Immunizations SOCIAL HISTORY [...] Hospitalization History Resp distress with hypoxia, pulmonary fibrosis-[facility] 08/03/16 Hospitalization History Shortness of breath 04/2017
--- OUTSIDE RECORDS SUMMARY | 2017-12-21 17:11 | XMS REPORT ---
Author Author RILEY SCHRADER [facility] Address [address] [place] [address] Care Team Providers Care Supervisor [employer] Name Role Phone RILEY SCHRADER Unavailable PROBLEMS Type Condition ICD9-CM Code UPN88-WP Code Onset Dates Condition Status SNOMED Code Problem Hyperlipidemia E78.5 Active 69701564 Problem Vision loss, left eye H54.62 Active 94200178 Problem Psoriasis L40.9 Active 9328215 Problem Lactic acidosis E87.2 Active 19291889 Problem Renal cyst, right N28.1 Active 94161416 Problem Idiopathic pulmonary fibrosis J84.112 Active 534985337 Problem Chronic obstructive pulmonary disease, unspecified J44.9 Active 86537762 Problem Type 2 diabetes mellitus with hyperglycemia, without long-term current use of insulin E11.65 Active 17884996 Problem Tobacco use Z72.0 Active 679066423 Problem Type 2 diabetes mellitus without complication E11.9 Active 89163008 Problem 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.79 Active 106688941 Problem Essential hypertension I10 Active 78667754 Problem Hematochezia K92.1 Active 071983924 ALLERGIES Substance Reaction Event Type Date Status Naprosyn Unknown Drug Allergy November, Active Celebrex Unknown Drug Allergy November, Active SOCIAL HISTORY Never Assessed PLAN OF CARE Activity Details Follow Up 6 Weeks Reason: VITAL SIGNS Height 67 in 2016-12-28 Weight 210.0 lbs 2016-12-28 Temperature 98.2 degrees Fahrenheit 2016-12-28 Heart Rate 88 bpm 2016-12-28 Respiratory Rate 20 2016-12-28 BMI 32.89 kg/m2 2016-12-28 Blood pressure systolic 122 mmHg 2016-12-28 Blood pressure diastolic 78 mmHg 2016-12-28 MEDICATIONS Medication Instructions Dosage Frequency Start Date End Date Duration Status Advair Diskus 250-50 MCG/DOSE Inhalation Twice a day, approximately 12 hrs apart 1 puff Active Hydroxychloroquine Sulfate 200 mg Orally Once a day 2 tablet with food or milk 24h 90 days Active Pulmicort Flexhaler 180 MCG/ACT Inhalation Twice a day 2 puff 12h Jul, Active Clobetasol Propionate 0.05 % Externally Twice a day as needed for psoriasis 1 application to affected area Dec, Active Folic Acid 1 MG Orally Once a day 1 tablet 24h November, 90 days Active Piroxicam 20 mg Orally Once a day 1 capsule with food 24h 90 days Active Lipitor 40 mg Orally Once a day 1 tablet 24h 90 days Active Methotrexate 2.5 MG Orally once weekly 4 tabs on week 1, 5 tabs week 2, 6 tabs every week thereafter November, Active Lisinopril 20 mg Orally Once a day 1 tablet 24h 10 Aug, 2015 90 days Active GlipiZIDE 5 mg Orally twice a day 2 tablets 12h 90 days Active RESULTS Name Result Date Reference Range MALDONADO ANALYZER 2016-12-28 MALDONADO Direct Negative Negative See below: CCP ANTIBODY 2016-12-28 CCP Antibodies IgG/IgA 42 0-19 CBC 2016-12-28 WBC 10.7 3.4-10.8 RBC 5.36 4.14-5.80 Hemoglobin 15.8 12.6-17.7 Hematocrit 48.1 37.5-51.0 MCV 90 79-97 MCH 29.5 26.6-33.0 MCHC 32.8 31.5-35.7 RDW 13.1 12.3-15.4 Platelets 286 150-379 Neutrophils 64 Lymphs 21 Monocytes 8 Eos 6 Basos 1 Neutrophils (Absolute) 6.9 1.4-7.0 Lymphs (Absolute) 2.3 0.7-3.1 Monocytes(Absolute) 0.8 0.1-0.9 Eos (Absolute) 0.7 0.0-0.4 Baso (Absolute) 0.1 0.0-0.2 Immature Granulocytes 0 Immature Grans (Abs) 0.0 0.0-0.1 ESR/SED RATE 2016-12-28 Sedimentation Rate-Westergren 37 0-30 RA (RHEUMATOID) FACTOR 2016-12-28 RA Latex Turbid. >650.0 0.0-13.9 CRP 2016-12-28 C-Reactive Protein, Quant 6.6 0.0-4.9 CMP 2016-12-28 Glucose, Serum 84 65-99 BUN 23 6-24 Creatinine, Serum 0.85 0.76-1.27 eGFR If NonAfricn Am 95 >59 eGFR If Africn Am 110 >59 BUN/Creatinine Ratio 27 9-20 Sodium, Serum 142 134-144 Potassium, Serum 4.4 3.5-5.2 Chloride, Serum 101 96-106 Carbon Dioxide, Total 22 18-29 Calcium, Serum 9.6 8.7-10.2 Protein, Total, Serum 7.6 6.0-8.5 Albumin, Serum 4.3 3.5-5.5 Globulin, Total 3.3 1.5-4.5 A/G Ratio 1.3 1.2-2.2 Bilirubin, Total 0.3 0.0-1.2 Alkaline Phosphatase, S 90 39-117 AST (SGOT) 18 0-40 ALT (SGPT) 24 0-44 PROCEDURES Procedure Date Ordered Result Body Site C-REACTIVE PROTEIN December 28, 2016 RBC SED RATE, AUTOMATED December 28, 2016 COMPLETE CBC W/AUTO DIFF WBC December 28, 2016 VENIPUNCT, ROUTINE* December 28, 2016 CCP ANTIBODY December 28, 2016 RHEUMATOID FACTOR, QUANT December 28, 2016 COMPREHEN METABOLIC PANEL December 28, 2016 ANTINUCLEAR ANTIBODIES December 28, 2016 IMMUNIZATIONS No Known Immunizations MEDICAL (GENERAL) [...]
--- OUTSIDE RECORDS SUMMARY | 2017-12-21 17:11 | XMS REPORT ---
Author Author GENEVIEVE JOSE F [facility] Address [address] [place] [address] Care Team Providers Care Social Work Associate Name Role Phone GENEVIEVESANTOSH LEMAHANY Unavailable PROBLEMS Type Condition ICD9-CM Code SBK58-OU Code Onset Dates Condition Status SNOMED Code Problem Psoriasis L40.9 Active 4511817 Problem Rheumatoid arthritis involving multiple sites with positive rheumatoid factor M05.79 Active 007155108 Problem Vision loss, left eye H54.62 Active 12399580 Problem Primary insomnia F51.01 Active 1332451 Problem Other elevated white blood cell (WBC) count D72.828 Active 436670237 Problem Essential hypertension I10 Active 28653421 Problem Hematochezia K92.1 Active 525894619 Problem Type 2 diabetes mellitus with hyperglycemia, without long-term current use of insulin E11.65 Active 58423701 Problem Tobacco use Z72.0 Active 955521448 Problem Renal cyst, right N28.1 Active 65255984 Problem Idiopathic pulmonary fibrosis J84.112 Active 021627646 Problem Chronic obstructive pulmonary disease, unspecified J44.9 Active 48885331 Problem Lactic acidosis E87.2 Active 91608126 Problem Hyperlipidemia E78.5 Active 21761263 ALLERGIES No Information ENCOUNTERS Encounter Location Date Diagnosis [facility] [id number] [address] November, [facility] [id number] [address] Oct, Rheumatoid arthritis involving multiple sites with positive rheumatoid factor M05.79 [facility] [id number] [place] [address] 84063- 5335 Oct, [facility] [id number] [address] 8[address] Oct, Rheumatoid arthritis involving multiple sites with positive rheumatoid factor M05.79 [place] [id number] [place] [address] 25518- 5380 Oct, Rheumatoid arthritis involving multiple sites with positive rheumatoid factor M05.79 ; Type 2 diabetes mellitus with hyperglycemia, without long-term current use of insulin E11.65 ; Hyperlipidemia E78.5 and Other elevated white blood cell (WBC) count D72.828 [place] [address] [address] Oct, Chronic obstructive pulmonary disease, unspecified J44.9 [place] [address] [address] Oct, Rheumatoid arthritis involving multiple sites with positive rheumatoid factor M05.79 [place] [address] [address]- [address] Oct, Type 2 diabetes mellitus with hyperglycemia, without long- term current use of insulin E11.65 [place] [address] [address]- [address] Sep, [place] [address] [address]- 5984 Sep, Rheumatoid arthritis involving multiple sites with positive rheumatoid factor M05.79 ; Visit for TB skin test Z11.1 and Psoriasis L40.9 [id number] [place] [address] 10225- 4493 Sep, Type 2 diabetes mellitus with hyperglycemia, without long- term current use of insulin E11.65 ; Rheumatoid arthritis involving multiple sites with positive rheumatoid factor M05.79 ; Hyperlipidemia E78.5 ; Essential hypertension I10 ; Other elevated white blood cell (WBC) count D72.828 ; Primary insomnia F51.01 and Tobacco use Z72.0 [place] [address] [address]- 0876 Sep, [place] [id number] [place] [address] 35742- 9096 Aug, Type 2 diabetes mellitus with hyperglycemia, without long- term current use of insulin E11.65 and Hyperlipidemia E78.5 [facility] [address] [address] Jul, [facility] [id number] [place] [address] 80130- 3814 Jul, Rheumatoid arthritis involving multiple sites with positive rheumatoid factor M05.79 [place] [id number] [place] [address] 92555- 6269 Jul, Rheumatoid arthritis involving multiple sites with positive rheumatoid factor M05.79 [place] [id number] [place] [address] 43816- 7205 Jun, Essential hypertension I10 and Hyperlipidemia E78.5 [place] [id number] [place] [address] 22229- 8882 Jun, Chronic obstructive pulmonary disease, unspecified J44.9 [place] [id number] [place] [address] 27811- 8280 Jun, [place] [id number] [place] [address] 12143- 7580 May, Type 2 diabetes mellitus without complication E11.9 ; Rheumatoid arthritis involving multiple sites with positive rheumatoid factor M05.79 ; Psoriasis L40.9 and Essential hypertension I10 [facility] [id number] [place] [id number] May, Dental examination Z01.20 and Dental caries K02.9 [place] [id number] [place] [address] 75491- 8745 Apr, Type 2 diabetes mellitus without complication E11.9 ; Type 2 diabetes mellitus with hyperglycemia, without long-term current use of insulin E11.65 ; Idiopathic pulmonary fibrosis J84.112 ; Essential hypertension I10 ; Tobacco use Z72.0 ; Rheumatoid arthritis involving multiple sites with positive rheumatoid factor M05.79 ; Hyperlipidemia E78.5 and Chronic obstructive pulmonary disease, unspecified J44.9 [place] [id number] [place] [address] 00721- 1887 Apr, Dental examination Z01.20 [facility] [address] [address] 86[address] Apr, [facility] [address] [address]- 0567 Apr, [facility] [address] [address]- 5648 Apr, [facility] [id number] [place] [address] 23599- 2869 Apr, [facility] [address] [address]- 9912 Apr, [facility] [id number] [place] [address] 31076- 0135 Apr, Type 2 diabetes mellitus without complication E11.9 and Essential hypertension I10 [facility] [id number] [address]- 6284 Mar, [facility] [address] [address]- 4884 Mar, Rheumatoid arthritis involving multiple sites with positive rheumatoid factor M05.79 [facility] [address] [place] [address] 00179- 7126 Mar, Type 2 diabetes mellitus without complication E11.9 ; Essential hypertension I10 and Hyperlipidemia E78.5 [facility] [address] [address]- 9343 Mar, Rheumatoid arthritis involving multiple sites with positive rheumatoid factor M05.79 [facility] [address] [address]- 2903 Mar, [facility] [address] [place] [address] 02998- 2791 Mar, Hyperlipidemia E78.5 ; Essential hypertension I10 and Type 2 diabetes mellitus without complication E11.9 [facility] [address] [address]- 2980 Feb, Rheumatoid arthritis involving multiple sites with positive rheumatoid factor M05.79 and Essential hypertension I10 [facility] [address] [place] [address] 02581- 8776 Jan, Rheumatoid arthritis involving multiple sites with positive rheumatoid factor M05.79 [facility] [address] [address]- 0385 Dec, Rheumatoid arthritis involving multiple sites with positive rheumatoid factor M05.79 [facility] [id number] [place] [address] 72674- 4317 Dec, [facility] [id number] [place] [address] 99497- 9253 November, Rheumatoid arthritis involving multiple sites with positive rheumatoid factor M05.79 and Psoriasis L40.9 [place] [id number] [place] [address] 81142- 4272 November, Hyperlipidemia E78.5 [facility] [id number] [place] [address] 28579- 9923 November, Type 2 diabetes mellitus without complication E11.9 [facility] [address] [place] [address] 32293- 4073 November, [facility] [address] [place] [address] 51078- 3943 November, Rheumatoid arthritis involving multiple sites with positive rheumatoid factor M05.79 ; Hyperlipidemia E78.5 ; Type 2 diabetes mellitus without complication E11.9 ; Idiopathic pulmonary fibrosis J84.112 and Tobacco use Z72.0 [facility] [address] [address]- 2941 Oct, Essential hypertension I10 and Rheumatoid arthritis involving multiple sites with positive rheumatoid factor M05.79 [facility] [address] [address]- 9869 Sep, Rheumatoid arthritis involving multiple sites with positive rheumatoid factor M05.79 and Psoriasis L40.9 [facility] [address] [place] [address] 61385- 1998 Jul, Rheumatoid arthritis involving multiple sites with positive rheumatoid factor M05.79 [address] [id number] [place] [address] 91114- 6033 Jul, Idiopathic pulmonary fibrosis J84.112 [facility] [id number] [place] [id number] Jul, [address] [address]- 5235 Jul, Idiopathic pulmonary fibrosis J84.[address] 62906- 5668 Jul, Idiopathic pulmonary fibrosis J84.112 and Hypoxia R09.02 [place] [place] [address] 55308- 5859 Jul, Cough R05 and Idiopathic pulmonary fibrosis J84.112 [address] [address] [place] [address] 60002- 9188 Apr, Type 2 diabetes mellitus without complication E11.9 ; Rheumatoid arthritis involving multiple sites with positive rheumatoid factor M05.79 ; Psoriasis L40.9 ; Hyperlipidemia E78.5 ; Idiopathic pulmonary fibrosis J84.112 and Essential hypertension I10 [place] [id number] [place] [address] 36879- 2059 Feb, [place] [id number] [place] [address] 01078- 8660 Feb, [place] [address] [place] [address] 91191- 4106 Dec, Right ankle gives way M25.[address] 55534- 4465 November, [place] [address] [place] [address] 44921- 8735 November, Wrist pain, left M25.[address] 41905- 7535 Sep, Psoriasis L40.9 [facility] [address] [place] [address] 13264- 4736 Sep, COPD exacerbation J44.1 [facility] [id number] [place] [address] 21226- 4863 15 Aug, 2015 [facility] [id number] [place] [address] 41076- 4327 Aug, Rheumatoid arthritis involving multiple sites with positive rheumatoid factor M05.79 and Hyperlipidemia E78.5 [facility] [id number] [place] [address] 71001- 6081 Aug, [facility] [id number] [place] [address] 41245- 9582 Aug, Psoriasis L40.9 ; Rheumatoid arthritis involving multiple sites with positive rheumatoid factor M05.79 and Essential hypertension I10 [facility] [id number] [place] [address] 34764- 0451 Jul, [facility] [id number] [place] [address] 82275- 4368 Jul, [facility] [id number] [place] [address] 43549- 8855 Jul, Type 2 diabetes mellitus without complication E11.9 ; Hyperlipidemia E78.5 and Rheumatoid arthritis involving multiple sites with positive rheumatoid factor M05.79 [facility] [address] [place] [address] 30476- 8306 Jun, [facility] [address] [place] [address] 95504- 2851 Apr, [facility] [id number] [place] [address] 88182- 4252 Mar, [facility] [address] [place] [address] 28727- 1468 Mar, [facility] [id number] [place] [address] 03267- 0243 Mar, Rheumatoid arthritis 714.0 ; Other psoriasis 696.1 and Cellulitis, axillary fold 682.3 [facility] [address] [address]- 6696 Jan, [facility] [id number] [address]- 7730 Dec, [facility] [id number] [place] [address] 95426- 6369 Dec, Other and unspecified hyperlipidemia 272.4 ; Other psoriasis 696.1 and Diabetes mellitus without mention of complication, type II or unspecified type, not stated as uncontrolled 250.00 [facility] [address] [address] 8900 Dec, [facility] [id number] [place] [address] 44832- 3245 November, [facility] [address] [address]- 0205 Oct, [facility] [address] [address]- 4112 Oct, [facility] [address] [address] 2393 Sep, [facility] [address] [address]- 2791 Sep, [facility] [address] [address] 7294 Sep, [facility] [address] [address]- 6788 Sep, [facility] [address] 8281 Sep, [facility] [address] [address]- 9611 Sep, [facility] [address] [address]- 3805 13 Sep, 2014 [facility] [address] [id number] [place] [address]- 6521 13 Sep, 2014 [facility] [place] [facility] [address] [id number] [place] [address]- 4006 03 Sep, 2014 [facility] [address] [id number] [place] [address]- 7180 03 Sep, 2014 [facility] [address] [id number] [place] [address]- 0157 19 Jul, 2014 [facility] [address] [id number] [place] [address]- 7097 19 Jul, 2014 [facility] [address] [id number] [place] [address]- 6292 16 Jul, 2014 [facility] [address] [id number] [place] [address]- 4286 16 Jul, 2014 [facility] [address] [id number] [place] [address]- 6216 15 Jul, 2014 [facility] [address] [id number] [place] [address]- 3178 15 Jul, 2014 [facility] [address] [id number] [place] [address]- 1108 13 Jul, 2014 [facility] [address] [id number] [place] [address]- 6589 13 Jul, 2014 [facility] [address] [id number] [place] [address]- 4466 Jun, [facility] [place] [facility] [address] [id number] [place] [address]- 4579 Jun, [facility] [place] [facility] [address] [id number] [place] [address]- 3997 Jun, [facility] [place] [facility] [address] [id number] [place] [address]- 5486 Jun, [facility] [place] [facility] [address] [id number] [place] [address]- 4250 Jun, [facility] [place] [facility] [address] [id number] [place] [address]- 8220 Jun, [facility] [place] [facility] [address] [id number] [place] 2632 Apr, [facility] [place] [facility] [address] [id number] [place] [address]- 9929 Apr, [facility] [place] [facility] [address] [id number] [place] 0727 Mar, [facility] [place] [facility] [address] [id number] [place] [address]- 1952 Mar, [facility] [place] [facility] [address] [id number] [place] [address]- 9984 Feb, [facility] [place] [facility] [address] [id number] [place] [address]- 2901 Feb, [facility] [place] [facility] [address] [id number] [place] [address]- 7065 Jan, [facility] [place] [facility] [address] [id number] [place] [address]- 2635 Jan, [facility] [place] [facility] [address] [id number] [address]- 9408 Jan, [facility] [place] [facility] [address] [id number] [address]- 4255 Jan, [facility] [place] [facility] [address] [id number] [place] [address]- 4535 Jan, [facility] [place] [facility] [address] [id number] [place] [address]- 5209 Dec, [facility] [place] [facility] [address] [id number] [place] [address]- 2172 Dec, [facility] [place] [facility] [address] [id number] [address]- 0355 Dec, [facility] [place] [facility] [address] [id number] [place] [address]- 3995 Dec, [facility] [place] [facility] [address] [facility] [id number] [place] [address]- 2410 November, [facility] [place] [facility] [address] [facility] [id number] [place] [address]- 8655 November, [facility] [place] [facility] [address] [facility] [id number] [place] [address]- 6664 Oct, [facility] [place] [facility] [address] [facility] [id number] [place] [address]- 6246 Oct, [facility] [place] [facility] [address] [facility] [id number] [place] [address]- 2469 Sep, [facility] [place] [facility] [address] [facility] [id number] [place] [address]- 0059 Sep, [facility] [place] [facility] [address] [facility] [id number] [place] [address]- 4619 Sep, [facility] [place] [facility] [address] [facility] [id number] [place] [address]- 1871 Sep, [facility] [place] [facility] [address] [facility] [id number] [place] [address]- 5856 Aug, [facility] [place] [facility] [address] [facility] [id number] [place] [address]- 9777 Aug, [facility] [place] [facility] [address] [facility] [id number] [place] [address]- 7122 Aug, [facility] [place] [facility] [address] [id number] [place] [address]- 1379 Aug, [facility] [place] [facility] [address] [facility] [id number] [place] [address]- 2185 Aug, [facility] [place] [facility] [address] [facility] [id number] [place] [address]- 5664 Aug, [facility] [place] [facility] [address] [id number] [place] [address]- 3559 Jul, [facility] [address] [id number] [place] [address]- 4380 Jul, [facility] [place] [facility] [address] [id number] [place] [address]- 5508 Jul, [facility] [place] [facility] [address] [id number] [place] [address]- 5162 Jul, [facility] [address] [id number] [place] [address]- 6587 Jul, [facility] [place] [facility] [address] [id number] [place] [address]- 1174 Jul, [facility] [address] [id number] [place] [address]- 3341 Jul, [facility] [address] [id number] [place] [address]- 6038 Jul, [facility] [place] [facility] [address] [id number] [place] [address]- 4207 Jun, [facility] [place] [facility] [address] [id number] [place] 8242 Jun, [facility] [place] [facility] [address] [id number] [place] [address]- 5996 Jun, [facility] [place] [facility] [address] [id number] [place] [address]- 4079 Jun, [facility] [place] [facility] [address] [id number] [place] [address]- 2895 Jun, [facility] [place] [facility] [address] [id number] [place] [address]- 0286 Jun, [facility] [place] [facility] [address] [id number] [place] [address]- 5630 May, [facility] [place] [facility] [address] [id number] [place] [address]- 1531 May, [facility] [place] [facility] [address] [id number] [place] [address]- 1137 May, [facility] [place] [facility] [address] [id number] [place] [address]- 4839 May, [facility] [place] [facility] [address] [id number] [place] [address]- 0194 Apr, [facility] [place] [facility] [address] [id number] [place] [address]- 9364 Apr, [facility] [place] [facility] [address] [id number] [place] [address]- 1354 Apr, [facility] [place] [facility] [address] [id number] [place] [address]- 7553 Apr, [facility] [place] [facility] [address] [id number] [place] [address]- 8554 25 Mar, 2013 [facility] [place] [facility] [address] [id number] [place] [address]- 1127 23 Mar, 2013 [facility] [place] [facility] [address] [id number] [place] [address]- 0400 16 Mar, 2013 [facility] [place] [facility] [address] [id number] [place] [address]- 6542 12 Mar, 2013 [facility] [place] [facility] [address] [id number] [place] [address]- 6843 09 Mar, 2013 [facility] [place] [facility] [address] [id number] [place] [address]- 4675 Mar, [facility] [place] [facility] [address] [id number] [place] [address]- 1173 Feb, [facility] [place] [facility] [address] [id number] [place] [address]- 6739 Feb, [facility] [place] [facility] [address] [id number] [place] [address]- 3825 Feb, [facility] [place] [facility] [address] [id number] [place] [address]- 1158 Feb, [facility] [address] [id number] [place] [address]- 5863 Jan, [facility] [place] [facility] [address] [id number] [place] [address] 2546 Dec, [facility] [place] [facility] [address] [id number] [place] [address]- 9086 November, [facility] [place] [facility] [address] [id number] [place] [address]- 0349 Sep, [facility] [place] [facility] [address] [id number] [place] [address]- 8376 Aug, [facility] [place] [facility] [address] [id number] [place] [address]- 2990 Aug, [facility] [place] [facility] [address] [id number] [place] [address]- 1435 Jul, [facility] [address] [id number] [place] [address]- 3550 Jul, [facility] [address] [id number] [place] [address] Jun, [facility] [address] [id number] [place] [address] Jun, [facility] [place] [facility] [address] [id number] [place] [address] Jun, [facility] [place] [facility] [address] [id number] [place] [address] Jun, [facility] [place] [facility] [address] [id number] [place] [address] Jun, [facility] [place] [facility] [address] [id number] [place] [address] Jun, [facility] [place] [facility] [address] [id number] [place] [address] 30 May, 2012 [facility] [place] [facility] [address] [id number] [place] [address] 29 May, 2012 [facility] [place] [facility] [address] [id number] [place] [address] 28 May, 2012 [facility] [place] [facility] [address] [id number] [place] [address] 28 May, 2012 [facility] [place] [facility] [address] [id number] [place] [address] May, [facility] [place] [facility] [address] [id number] [place] [address] 27 May, 2012 [facility] [place] [facility] [address] [id number] [place] [address] 15 May, 2012 [facility] [place] [facility] [address] [id number] [place] [address] 15 May, 2012 [facility] [place] [facility] [address] [id number] [place] [address] 14 May, 2012 [facility] [place] [facility] [address] [id number] [place] [address] 14 May, 2012 [facility] [place] [facility] [address] [facility] [id number] [place] [address] 12 May, 2012 [facility] [place] [facility] [address] [id number] [place] [address] 12 May, 2012 [facility] [place] [facility] [address] [id number] [place] [address] 10 May, 2012 [facility] [place] [facility] [address] [id number] [place] [address] 10 May, 2012 [facility] [place] [facility] [address] [id number] [place] [address] 08 May, 2012 [facility] [place] [facility] [address] [id number] [place] [id number] 26 Apr, 2012 [facility] [place] [facility] [address] [id number] [place] [address] Apr, [facility] [place] [facility] [address] [id number] [place] [address] Apr, [facility] [place] [facility] [address] [id number] [place] [address] Apr, [facility] [place] [facility] [address] [id number] [place] [address] Apr, [facility] [place] [facility] [address] [id number] [place] [address] Apr, [facility] [place] [facility] [address] [id number] [place] [address] Apr, [facility] [place] [facility] [address] [id number] [place] [address] Apr, [facility] [place] [facility] [address] [id number] [place] [address] Apr, [facility] [place] [facility] [address] [id number] [place] [address] Apr, [facility] [place] [facility] [address] [id number] [place] [address] 25 Mar, 2012 [facility] [place] [facility] [address] [id number] [place] [address] 24 Mar, 2012 [facility] [place] [facility] [address] [id number] [place] [address] 14 Mar, 2012 [facility] [place] [facility] [address] [id number] [place] [address] 04 Mar, 2012 [facility] [place] [facility] [address] [id number] [place] [address] Feb, [facility] [place] [facility] [address] [id number] [place] [address] Feb, [facility] [place] [facility] [address] [id number] [place] [address] 15 Feb, 2012 [facility] [address] [id number] [address] Feb, [facility] [id number] [address] Feb, [facility] [id number] [address] November, [facility] [id number] [place] [address] Aug, [facility] [id number] [place] [address] May, [facility] [id number] [address] May, [facility] [id number] [address] Apr, [facility] [address] [address] Mar, IMMUNIZATIONS No Known Immunizations SOCIAL HISTORY Never Assessed REASON FOR VISIT Deferred Lab PLAN OF CARE VITAL SIGNS MEDICATIONS Unknown [...] Hospitalization History Resp distress with hypoxia, pulmonary fibrosis-[facility] 08/03/16 Hospitalization History Shortness of breath 04/2017
[2017-12-21] MEDS: methylPREDNISolone 125 MG (Solu-MEDROL) VIAL IVP ONE (17:45)
[2017-12-21 17:48] LABS: BASOPHILS % (AUTO) 0 % (0-10); EOSINOPHILS # (AUTO) 0.1 10^3/uL (0.0-0.3); EOSINOPHILS % (AUTO) 1 % (0-10); HEMATOCRIT 45 % (40-54); HEMOGLOBIN 15.1 G/DL (13.3-17.7); LYMPHOCYTES # (AUTO) 1.2 X 10^3 (1.0-4.0); LYMPHOCYTES % (AUTO) 7 % (12-44); MEAN CORPUSCULAR HEMOGLOBIN 31 PG (25-34); MEAN CORPUSCULAR HGB CONC 34 G/DL (32-36); MEAN CORPUSCULAR VOLUME 93 FL (80-99); MEAN PLATELET VOLUME 10.6 FL (7.4-10.4); MONOCYTES # (AUTO) 1.3 X 10^3 (0.0-1.0); MONOCYTES % (AUTO) 8 % (0-12); NEUTROPHILS # (AUTO) 13.6 X 10^3 (1.8-7.8); NEUTROPHILS % (AUTO) 84 % (42-75); PLATELET COUNT 242 10^3/uL (130-400); RED BLOOD COUNT 4.83 10^6/uL (4.35-5.85); RED CELL DISTRIBUTION WIDTH 14.5 % (10.0-14.5); WHITE BLOOD COUNT 16.3 10^3/uL (4.3-11.0)
--- NOTE | 2017-12-21 17:49 | ED Respiratory ---
General Chief Complaint: Respiratory Problems Stated Complaint: COUGH;TROUBLE BREATHING Nursing Triage Note: TO ROOM C/O COUGH AND CONGESTION FOR 2 DAYS History of Present Illness Date Seen by Provider: December 21, 2017 Time Seen by Provider: 17:44 Initial Comments Patient is a 62-year-old male who presents to the emergency room with complaints of increased cough, shortness of breath, frequent use of his inhaler , and increase in green colored sputum. The patient has a significant history of COPD. Timing/Duration: week Severity: mild Prior Episodes/Possible Cause: occasional episodes Associated Symptoms: cough, shortness of breath, wheezing Allergies and Home Medications Allergies Coded Allergies: No Known Drug Allergies (Unverified , 09/10/10) Home Medications Albuterol Sulfate 18 Gm Hfa.aer.ad, 2 PUFF IH Q4H PRN for SHORTNESS OF BREATH, ( Reported) Albuterol Sulfate 2.5 Mg/3 Ml Vial.neb, 2.5 MG NEB Q6H PRN for SHORTNESS OF BREATH, (Reported) Atorvastatin Calcium 40 Mg Tablet, 40 MG PO HS, (Reported) Fluticasone/Salmeterol 1 Each Blst.w.dev, 1 PUFF IH BID PRN for SHORTNESS OF BREATH, (Reported) Folic Acid 1 Mg Tablet, 1 MG PO DAILY, (Reported) Glipizide 5 Mg Tablet, 10 MG PO BID, (Reported) LAST RECEIVED #360 01-13- TAKES 2 (5MG) TABLETS Hydrocodone Bit/Acetaminophen 1 Each Tablet, 1 TAB PO Q6H PRN for PAIN-MODERATE, (Reported) Hydroxychloroquine Sulfate 200 Mg Tablet, 400 MG PO DAILY, (Reported) TAKES 2 (200MG) TABLETS Lisinopril 20 Mg Tablet, 20 MG PO DAILY, (Reported) Methotrexate Sodium 2.5 Mg Tablet, 15 MG PO We, (Reported) TAKES 6 (2.5MG) TABLETS Piroxicam 20 Mg Capsule, 20 MG PO DAILY, (Reported) Patient Home Medication List Home Medication List Reviewed: Yes Review of Systems Constitutional: see HPI EENTM: see HPI Respiratory: cough, dyspnea on exertion, phlegm, short of breath Cardiovascular: see HPI Gastrointestinal: see HPI Genitourinary: see HPI Musculoskeletal: see HPI Skin: see HPI Psychiatric/Neurological: See HPI Hematologic/Lymphatic: See HPI Immunological/Allergic: see HPI All Other Systems Reviewed Negative Unless Noted: Yes Past Nfmnayf-Qnmfls-Zivaku Hx Past Med/Social Hx: Reviewed Nursing Past Med/Soc Hx Patient Social History Alcohol Use: Denies Use Recreational Drug Use: No Smoking Status: Current Everyday Smoker Type Used: Cigarettes Recent Foreign Travel: No Contact w/Someone Who Travel: No Recent Infectious Disease Expo: No Recent Hopitalizations: Yes (PT STATES "LAST TEN DAYS") Immunizations Up To Date Tetanus Booster (TDap): Unknown Date of Pneumonia Vaccine: Jun 01, 2013 Date of Influenza Vaccine: May 31, 2014 Seasonal Allergies Seasonal Allergies: No Past Medical History Surgeries: No Respiratory: Yes COPD Currently Using CPAP: No Currently Using BIPAP: No Cardiac: No Hypertension Neurological: No Reproductive Disorders: No Genitourinary: No Gastrointestinal: No Musculoskeletal: Yes Rheumatoid Arthritis Endocrine: Yes (TYPE 2 DIABETES) Diabetes, Non-Insulin dep HEENT: No Loss of Vision: Left Cancer: No Psychosocial: No Integumentary: No Psoriasis Blood Disorders: No Adverse Reaction/Blood Tranf: No Family Medical History Reviewed Nursing Family Hx Cancer G8 SISTER Family history: Diabetes mellitus G8 SISTER Physical Exam Vital Signs Vital Signs - First Documented 12/21/17 17:11 Temp 97.9 Pulse 110 Resp 18 B/P (MAP) 109/68 (82) Pulse Ox 94 O2 Delivery Room Air Capillary Refill : Less Than 3 Seconds General Appearance: WD/WN, no apparent distress Eyes: Bilateral Eye PERRL HEENT: PERRL/EOMI, normal ENT inspection, TMs normal, pharynx normal Neck: non-tender, full range of motion, supple, normal inspection Respiratory: chest non-tender, normal breath sounds, no respiratory distress, no accessory muscle use, decreased breath sounds Cardiovascular: regular rate, rhythm, no edema, no gallop, no JVD, no murmur Gastrointestinal: normal bowel sounds, non tender, soft, no organomegaly, no pulsatile mass Extremities: normal range of motion, non-tender, normal inspection, no pedal edema, no calf tenderness Neurologic/Psychiatric: alert, normal mood/affect, oriented x 3 Skin: normal color, warm/dry Lymphatic: no adenopathy Focused Exam Lactate Level 12/21/17 18:13: Lactic Acid Level 1.20 Lactic Acid Level Laboratory Tests Test 12/21/17 18:13 Lactic Acid Level 1.20 MMOL/L (0.50-2.00) Progress/Results/Core Measures Suspected Sepsis Recent Fever Within 48 Hours: No Infection Criteria Present: None New/Unexplained Altered Menta: No Sepsis Screen: No Definite Risk SIRS Temperature:97.9 Pulse: 110 Respiratory Rate: 18 Laboratory Tests 12/21/17 17:21: White Blood Count 16.3H Blood Pressure 109 /68 Mean: 82 12/21/17 18:13: Lactic Acid Level 1.20 Laboratory Tests 12/21/17 17:21: Creatinine 0.94, Platelet Count 242, Total Bilirubin 1.2H Results/Orders Lab Results Laboratory Tests Test 12/21/17 17:21 12/21/17 18:13 12/21/17 18:35 Range/Units White Blood Count 16.3 H 4.3-11.0 10^3/uL Red Blood Count 4.83 4.35-5.85 10^6/uL Hemoglobin 15.1 13.3-17.7 G/DL Hematocrit 45 40-54 % Mean Corpuscular Volume 93 80-99 FL Mean Corpuscular Hemoglobin 31 25-34 PG Mean Corpuscular Hemoglobin Concent 34 32-36 G/DL Red Cell Distribution Width 14.5 10.0-14.5 % Platelet Count 242 130-400 10^3/uL Mean Platelet Volume 10.6 H 7.4-10.4 FL Neutrophils (%) (Auto) 84 H 42-75 % Lymphocytes (%) (Auto) 7 L 12-44 % Monocytes (%) (Auto) 8 0-12 % Eosinophils (%) (Auto) 1 0-10 % Basophils (%) (Auto) 0 0-10 % Neutrophils # (Auto) 13.6 H 1.8-7.8 X 10^3 Lymphocytes # (Auto) 1.2 1.0-4.0 X 10^3 Monocytes # (Auto) 1.3 H 0.0-1.0 X 10^3 Eosinophils # (Auto) 0.1 0.0-0.3 10^3/uL Basophils # (Auto) 0.0 0.0-0.1 10^3/uL Neutrophils % (Manual) 76 % Lymphocytes % (Manual) 19 % Monocytes % (Manual) 6 % Eosinophils % (Manual) 1 % Basophils % (Manual) 0 % Band Neutrophils 8 % Blood Morphology Comment NORMAL Sodium Level 137 135-145 MMOL/L Potassium Level 4.0 3.6-5.0 MMOL/L Chloride Level 103 98-107 MMOL/L Carbon Dioxide Level 21 21-32 MMOL/L Anion Gap 13 5-14 MMOL/L Blood Urea Nitrogen 18 7-18 MG/DL Creatinine 0.94 0.60-1.30 MG/DL Estimat Glomerular Filtration Rate > 60 BUN/Creatinine Ratio 19 Glucose Level 111 H 70-105 MG/DL Calcium Level 9.5 8.5-10.1 MG/DL Total Bilirubin 1.2 H 0.1-1.0 MG/DL Aspartate Amino Transf (AST/SGOT) 12 5-34 U/L Alanine Aminotransferase (ALT/SGPT) 19 0-55 U/L Alkaline Phosphatase 86 40-136 U/L Total Protein 7.5 6.4-8.2 GM/DL Albumin 4.1 3.2-4.5 GM/DL Lactic Acid Level 1.20 0.50-2.00 MMOL/L Blood Gas Puncture Site LT RAD Blood Gas Patient Temperature 98.6 Arterial Blood pH 7.43 7.37-7.43 Arterial Blood Partial Pressure CO2 32 L 35-45 MMHG Arterial Blood Partial Pressure O2 69 L 79-93 MMHG Arterial Blood HCO3 21 L 23-27 MMOL/L Arterial Blood Total CO2 21.7 21.0-31.0 MMOL/L Arterial Blood Oxygen Saturation 95 94-100 % Arterial Blood Base Excess -3.0 L -2.5-2.5 MMOL/L Cristobal Test YES-POS Blood Gas Ventilator Setting NO Blood Gas Inspired Oxygen 2L My Orders Orders - JOHANNE DE LOS SANTOS GRANT MANAGER Cbc With Automated Diff (12/21/17 17:37) Comprehensive Metabolic Panel (12/21/17 17:37) Chest 1 View, Ap/Pa Only (12/21/17 17:37) Iv Heplock-Insert (Order) (12/21/17 17:37) Albuterol/Ipra Inhalation Soln (Duoneb I (12/21/17 17:45) Methylprednisolone Sod Succ (Solu-Medrol (12/21/17 17:45) Svn Small Volume Nebulizer (12/21/17 17:37) Manual Differential (12/21/17 17:21) Blood Culture (12/21/17 18:05) Lactic Acid Analyzer (12/21/17 18:05) Piperacillin Sodium/Tazobactam (Zosyn Vi (12/21/17 18:30) Arterial Blood Gas (12/21/17 18:42) Albuterol/Ipra Inhalation Soln (Duoneb I (12/21/17 19:00) Albuterol Pre-Mix Nebs (Rt) (Proventil (12/21/17 19:00) Svn Small Volume Nebulizer (12/21/17 18:49) Svn Small Volume Nebulizer (12/21/17 18:49) Levofloxacin Tablet (Levaquin Tablet) (12/21/17 19:00) Medications Given in ED Current Medications Medications Dose Ordered Sig/Sara Route Start Time Stop Time Status Last Admin Dose Admin Albuterol/ Ipratropium 3 ml ONCE ONCE INH 12/21/17 17:45 12/21/17 17:46 DC 12/21/17 18:05 3 ML Albuterol/ Ipratropium 3 ml ONCE ONCE INH 12/21/17 19:00 12/21/17 19:01 DC 12/21/17 18:59 3 ML Methylprednisolone Sodium Succinate 125 mg ONCE ONCE IVP 12/21/17 17:45 12/21/17 17:46 DC 12/21/17 17:45 125 MG Piperacillin Sod/ Tazobactam Sod 4.5 gm/Dextrose 100 ml @ 200 mls/hr ONCE ONCE IV 12/21/17 18:30 12/21/17 18:59 DC 12/21/17 18:49 200 MLS/HR Vital Signs/I&O 12/21/17 17:11 Temp 97.9 Pulse 110 Resp 18 B/P (MAP) 109/68 (82) Pulse Ox 94 O2 Delivery Room Air Capillary Refill : Less Than 3 Seconds Blood Pressure Mean: 82 Diagnostic Imaging Diagonstic Imaging: Xray Plain Films/CT/US/NM/MRI: chest Comments NAME: EMERALD SHAH Xochitl MED REC#: [id number] PT STATUS: REG ER : 1955 PHYSICIAN: JOHANNE DE LOS SANTOS GRANT MANAGER ADMIT DATE: 12/21/17/ER Draft Date of Exam:12/21/17 CHEST 1 VIEW, AP/PA ONLY INDICATION: Shortness of breath. COMPARISON: 05/06/2017. FINDINGS: Single view of the chest demonstrates known interstitial lung disease. There is some increasing density in the medial right lung base which could represent uqvot-mu-wcykxbw process. The heart is prominent without pulmonary edema. There is no pneumothorax or effusion. Bony structures are normal. IMPRESSION: Acute-appearing infiltrate in the medial right lung base superimposed on background pulmonary fibrosis. Dictated on workstation # [id number] Dict: 12/21/17 1758 Trans: 12/21/17 1802 [id number] Interpreted by: TAMARA STILES Electronically signed by: Departure Communication (Admissions) spoke with Dr. Vallejo who is this patient's personal physician. She is very familiar with him. He gets a 0 score on a curb 65 criteria. She agrees with discharge to home on Levaquin, follow up tomorrow in the clinic. His oxygen saturations greater than 95% Impression Primary Impression: COPD exacerbation Additional Impression: Pneumonia Disposition: HOME, SELF-CARE Condition: Stable Departure-Patient Inst. Decision time for Depature: 18:51 Referrals: JOSE F VALLEJO MD (PCP/Family) Primary Care Physician Patient Instructions: Pneumonia, Adult (DC) Add. Discharge Instructions: 1. Return to ER for any worsening at all Such as fevers or increased shortness of breath. Take antibiotics as directed. Take steroids as directed. [facility] will call you tomorrow to make an appointment to be seen tomorrow in clinic. All discharge instructions reviewed with patient and/or family. Voiced understanding. Scripts Levofloxacin (Levaquin) 500 Mg Tablet 500 MG PO DAILY, #7 TAB Prov: JOHANNE DE LOS SANTOS APRN 12/21/17 Prednisone (Prednisone) 20 Mg Tab 40 MG PO DAILY, #8 TAB Prov: JOHANNE DE LOS SANTOS APRN 12/21/17 Copy Copies To 1: JOSE F VALLEJO MD, PETER J APRN December 21, 2017 17:49
[2017-12-21 18:01] LABS: ALANINE AMINOTRANSFERASE 19 U/L (0-55); ALBUMIN 4.1 GM/DL (3.2-4.5); ALKALINE PHOSPHATASE 86 U/L (40-136); BILIRUBIN,TOTAL 1.2 MG/DL (0.1-1.0); BUN/CREATININE RATIO 19; CALCIUM 9.5 MG/DL (8.5-10.1); CARBON DIOXIDE 21 MMOL/L (21-32); CHLORIDE 103 MMOL/L (98-107); CREATININE SERUM 0.94 MG/DL (0.60-1.30); GFR ESTIMATED > 60; GLUCOSE 111 MG/DL (70-105); SODIUM 137 MMOL/L (135-145); TOTAL PROTEIN 7.5 GM/DL (6.4-8.2)
--- NOTE | 2017-12-21 18:03 | Diagnostic Imaging Report ---
INDICATION: Shortness of breath. COMPARISON: 05/06/2017. FINDINGS: Single view of the chest demonstrates known interstitial lung disease. There is some increasing density in the medial right lung base which could represent xnmit-nc-ynhortk process. The heart is prominent without pulmonary edema. There is no pneumothorax or effusion. Bony structures are normal. IMPRESSION: Acute-appearing infiltrate in the medial right lung base superimposed on background pulmonary fibrosis. Dictated by: Dictated on workstation # [id number]
[2017-12-21] MEDS: RT-ALBUTEROL/IPRATROPIUM 3 ML (DUONEB) VIAL INH ONE ×2 (18:05→18:59)
[2017-12-21 18:10] LABS: BAND NEUTROPHILS 8 %; BASOPHILS % (MANUAL) 0 %; EOSINOPHILS % (MANUAL) 1 %; LYMPHOCYTES % (MANUAL) 19 %; MONOCYTES % (MANUAL) 6 %; NEUTROPHILS % (MANUAL) 76 %; RBC MORPH NORMAL
[2017-12-21 18:45] LABS: ABG OXYGEN SATURATION 95 % (94-100); ABG PCO2 32 MMHG (35-45); ABG PH 7.43 (7.37-7.43); ABG PO2 69 MMHG (79-93); ABG TCO2 21.7 MMOL/L (21.0-31.0); ALLENS TEST YES-POS; INSPIRED O2 2L; PATIENT TEMP 98.6; VENTILATOR NO
[2017-12-21] MEDS: PIPERACILLIN SODIUM/TAZOBACTAM 4.5 GM in D5W 100 ML IVPB 100 ML IV ONE (18:49)
[2017-12-21] MEDS: RT-ALBUTEROL SULF 2.5 MG/3 ML PRE-MIX VIAL INH SCH (18:59)
[2017-12-21] MEDS ORDERED: PRD20T PO (19:10)
[2017-12-21] MEDS ORDERED: LEVO500T2 PO (19:10)
[2017-12-21] MEDS: LEVOFLOXACIN 500 MG TAB (LEVAQUIN) PO ONE (19:18)
[2017-12-21 19:45] VITALS: BP 104/53
== END 2017-12-21 19:45 | disposition home or self-care (01) ==
LOC: ER 16:46
DX: J44.1 Chronic obstructive pulmonary disease with (acute) exacerbation (principal); J18.9 Pneumonia, unspecified organism; I10 Essential (primary) hypertension; M06.9 Rheumatoid arthritis, unspecified; E11.9 Type 2 diabetes mellitus without complications; F17.210 Nicotine dependence, cigarettes, uncomplicated; Z79.51 Long term (current) use of inhaled steroids; Z79.84 Long term (current) use of oral hypoglycemic drugs
CPT/HCPCS: 36415; 71045; 80053; 82805; 83605; 85007; 85027; 87040; 94640; 96365; 96375

== ENCOUNTER 2018-09-03 14:43 | Inpatient (IN) | payer MEDICAID ==
[~2018-09-03] VITALS: Ht 170.2 cm; Wt 96.8 kg
[~2018-09-03 14:43] MED LIST changes: +LEVO500T2 PO; -METH2.5T PO; +MTX2.5T PO
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
--- OUTSIDE RECORDS SUMMARY | 2018-09-03 14:49 | XMS REPORT ---
Author Author GENEVIEVE JOSE F [facility] Address [address] [place] [address] Care Team Providers Care Prisoner Classification Interviewer Name Role Phone GENEVIEVECINDY LEMAY Unavailable PROBLEMS Type Condition ICD9-CM Code USF74-CA Code Onset Dates Condition Status SNOMED Code Problem Psoriasis L40.9 Active 4664335 Problem Rheumatoid arthritis involving multiple sites with positive rheumatoid factor M05.79 Active 442855628 Problem Vision loss, left eye H54.62 Active 51732416 Problem Primary insomnia F51.01 Active 4242524 Problem Other elevated white blood cell (WBC) count D72.828 Active 742503904 Problem Essential hypertension I10 Active 17222091 Problem Hematochezia K92.1 Active 753899327 Problem Type 2 diabetes mellitus with hyperglycemia, without long-term current use of insulin E11.65 Active 89450218 Problem Tobacco use Z72.0 Active 201169839 Problem Renal cyst, right N28.1 Active 10758941 Problem Idiopathic pulmonary fibrosis J84.112 Active 650362399 Problem Chronic obstructive pulmonary disease, unspecified J44.9 Active 98176924 Problem Lactic acidosis E87.2 Active 00596820 Problem Hyperlipidemia E78.5 Active 99029113 ALLERGIES No Information ENCOUNTERS Encounter Location Date Diagnosis [place] [id number], [place] [address] Apr, [facility] [id number] [place] [address] 04742- 4140 Mar, [facility] [address] [place] [address] 39097- 5025 Feb, [facility] [id number], [place] [address] Jan, Rheumatoid arthritis involving multiple sites with positive rheumatoid factor M05.79 and Psoriasis L40.9 [facility] [id number], [place] [address] Jan, [facility] [address], [place] [address] November, [facility] [address], [place] [address] 7[address] November, Rheumatoid arthritis involving multiple sites with positive rheumatoid factor M05.79 [facility] [address], [place] [address]- 9782 November, Rheumatoid arthritis involving multiple sites with positive rheumatoid factor M05.79 [facility] [address], [place] [address] 0170 November, Rheumatoid arthritis involving multiple sites with positive rheumatoid factor M05.79 [facility] [address], [place] [address] 9311 Oct, Rheumatoid arthritis involving multiple sites with positive rheumatoid factor M05.79 [facility] [address], [place] [address] 4426 Oct, [facility] [address], [place] [address]- 5092 Oct, Rheumatoid arthritis involving multiple sites with positive rheumatoid factor M05.79 [facility] [address], [place] [address] 2358 Oct, Rheumatoid arthritis involving multiple sites with positive rheumatoid factor M05.79 ; Type 2 diabetes mellitus with hyperglycemia, without long-term current use of insulin E11.65 ; Hyperlipidemia E78.5 and Other elevated white blood cell (WBC) count D72.828 [facility] [address], [place] [address] 3485 Oct, Chronic obstructive pulmonary disease, unspecified J44.9 [facility] [address], [place] [address]- 2920 Oct, Rheumatoid arthritis involving multiple sites with positive rheumatoid factor M05.79 [facility] [id number], [place] [address] 8685 Oct, Type 2 diabetes mellitus with hyperglycemia, without long- term current use of insulin E11.65 [facility] [id number] [place] [address] 97935- 1865 Sep, [facility] [id number] [place] [address] 33337- 4854 Sep, Rheumatoid arthritis involving multiple sites with positive rheumatoid factor M05.79 ; Visit for TB skin test Z11.1 and Psoriasis L40.9 [facility] [address] [place] [address] 99312- 7392 Sep, Type 2 diabetes mellitus with hyperglycemia, without long- term current use of insulin E11.65 ; Rheumatoid arthritis involving multiple sites with positive rheumatoid factor M05.79 ; Hyperlipidemia E78.5 ; Essential hypertension I10 ; Other elevated white blood cell (WBC) count D72.828 ; Primary insomnia F51.01 and Tobacco use Z72.0 [facility] [id number] [place] [address] 07119- 2448 Sep, [facility] [id number] [place] [address] 41049- 3989 Aug, Type 2 diabetes mellitus with hyperglycemia, without long- term current use of insulin E11.65 and Hyperlipidemia E78.5 [facility] [address], [place] [address]- 3081 Jul, [facility] [address] [place] [address] 01592- 4275 Jul, Rheumatoid arthritis involving multiple sites with positive rheumatoid factor M05.79 [facility] [id number] [place] [address] 14750- 1869 Jul, Rheumatoid arthritis involving multiple sites with positive rheumatoid factor M05.79 [facility] [address] [place] [address] 17247- 1299 Jun, Essential hypertension I10 and Hyperlipidemia E78.5 [facility] [address], [place] [address]- 8609 Jun, Chronic obstructive pulmonary disease, unspecified J44.9 [facility] [address] [place] [address] 81054- 6813 Jun, [facility] [address], [place] [address]- 8426 May, Type 2 diabetes mellitus without complication E11.9 ; Rheumatoid arthritis involving multiple sites with positive rheumatoid factor M05.79 ; Psoriasis L40.9 and Essential hypertension I10 [facility] [address] [address] May, Dental examination Z01.20 and Dental caries K02.9 [facility] [address], [place] [address]- 9493 Apr, Type 2 diabetes mellitus without complication E11.9 ; Type 2 diabetes mellitus with hyperglycemia, without long-term current use of insulin E11.65 ; Idiopathic pulmonary fibrosis J84.112 ; Essential hypertension I10 ; Tobacco use Z72.0 ; Rheumatoid arthritis involving multiple sites with positive rheumatoid factor M05.79 ; Hyperlipidemia E78.5 and Chronic obstructive pulmonary disease, unspecified J44.9 [facility] [address] [place] [address] 20088- 8273 Apr, Dental examination Z01.20 [facility] [address], [place] [address]- 6293 Apr, [facility] [address], [place] [address]- 6688 Apr, [facility] [address], [place] [address]- 1918 Apr, [facility] [address], [place] [address]- 7537 Apr, [facility] [address], [place] [address]- 2677 Apr, [facility] [id number] [place] [address] 28275- 8382 Apr, Type 2 diabetes mellitus without complication E11.9 and Essential hypertension I10 [facility] [id number] [place] [address] 37062- 0889 Mar, [facility] [id number] [place] [address] 05370- 6913 Mar, Rheumatoid arthritis involving multiple sites with positive rheumatoid factor M05.79 [facility] [id number] [place] [address] 33424- 2807 Mar, Type 2 diabetes mellitus without complication E11.9 ; Essential hypertension I10 and Hyperlipidemia E78.5 [facility] [id number] [place] [address] 97060- 2822 Mar, Rheumatoid arthritis involving multiple sites with positive rheumatoid factor M05.79 [facility] [id number] [place] [address] 89018- 3572 Mar, [facility] [id number] [place] [address] 45569- 3567 Mar, Hyperlipidemia E78.5 ; Essential hypertension I10 and Type 2 diabetes mellitus without complication E11.9 [facility] [address] [place] [address] 39844- 8388 Feb, Rheumatoid arthritis involving multiple sites with positive rheumatoid factor M05.79 and Essential hypertension I10 [facility] [address], [place] [address]- 9488 Jan, Rheumatoid arthritis involving multiple sites with positive rheumatoid factor M05.79 [facility] [address], [place] [address]- 2124 Dec, Rheumatoid arthritis involving multiple sites with positive rheumatoid factor M05.79 [facility] [address] [place] [address] 14263- 4292 Dec, [facility] [address] [place] [address] 66500- 1471 November, Rheumatoid arthritis involving multiple sites with positive rheumatoid factor M05.79 and Psoriasis L40.9 [facility] [address], [place] [address]- 9250 November, Hyperlipidemia E78.5 [facility] [facility] [address] [place] [address] 11674- 4122 November, Type 2 diabetes mellitus without complication E11.9 [facility] [id number] [place] [address] 49483- 3922 November, [facility] [address] [place] [address] 17110- 6358 November, Rheumatoid arthritis involving multiple sites with positive rheumatoid factor M05.79 ; Hyperlipidemia E78.5 ; Type 2 diabetes mellitus without complication E11.9 ; Idiopathic pulmonary fibrosis J84.112 and Tobacco use Z72.0 [facility] [address] [place] [address] 11023- 0508 Oct, Essential hypertension I10 and Rheumatoid arthritis involving multiple sites with positive rheumatoid factor M05.79 [facility] [id number] [place] [address] 00475- 3109 Sep, Rheumatoid arthritis involving multiple sites with positive rheumatoid factor M05.79 and Psoriasis L40.9 [facility] [address] [place] [address] 90012- 8651 Jul, Rheumatoid arthritis involving multiple sites with positive rheumatoid factor M05.79 [facility] [address] [place] [address] 83717- 0213 Jul, Idiopathic pulmonary fibrosis J84.112 [facility] [id number] [place] [address] [id number] Jul, [place] [address] [place] [address] 18573- 4055 Jul, Idiopathic pulmonary fibrosis J84.112 [facility] [address] [place] [address] 93636- 9271 Jul, Idiopathic pulmonary fibrosis J84.112 and Hypoxia R09.[id number] [place] [address] 34616- 0956 Jul, Cough R05 and Idiopathic pulmonary fibrosis J84.112 [facility] [id number] [place] [address] 13084- 5265 Apr, Type 2 diabetes mellitus without complication E11.9 ; Rheumatoid arthritis involving multiple sites with positive rheumatoid factor M05.79 ; Psoriasis L40.9 ; Hyperlipidemia E78.5 ; Idiopathic pulmonary fibrosis J84.112 and Essential hypertension I10 [facility] [id number] [place] [address] 17660- 9245 Feb, [facility] [facility] [address] 9[address]10- 3287 Feb, [facility] [facility] [id number] [place] [address] 17798- 0653 Dec, Right ankle gives way M25.371 [facility] [id number] [place] [address] 67447- 4445 November, [facility] [id number] [place] [address] 04899- 3033 November, Wrist pain, left M25.532 [place] [facility] [id number] [place] [address] 79268- 9207 Sep, Psoriasis L40.9 [facility] [id number] [place] [address] 90838- 7757 Sep, COPD exacerbation J44.1 [facility] [facility] [id number] [place] [address] 69532- 7134 Aug, [facility] [facility] [id number] [place] [address] 81264- 6566 Aug, Rheumatoid arthritis involving multiple sites with positive rheumatoid factor M05.79 and Hyperlipidemia E78.5 [facility] [facility] [id number] [place] [address] 60919- 1552 Aug, [facility] [facility] [address] [place] [address]- 8004 Aug, Psoriasis L40.9 ; Rheumatoid arthritis involving multiple sites with positive rheumatoid factor M05.79 and Essential hypertension I10 [facility] [id number] [place] [address] 14534- 4938 Jul, [facility] [id number] [place] [address] 78109- 1332 Jul, [facility] [id number] [place] [address] 61381- 4586 Jul, Type 2 diabetes mellitus without complication E11.9 ; Hyperlipidemia E78.5 and Rheumatoid arthritis involving multiple sites with positive rheumatoid factor M05.79 [facility] [facility] [id number] [place] [address] 05009- 9100 Jun, [place] [facility] [id number] [place] [address] 22989- 7445 Apr, [facility] [id number] [place] [address] 58165- 2157 Mar, [place] [facility] [id number] [place] [address] 15043- 8525 Mar, [facility] [facility] [id number] [place] [address] 94679- 8102 Mar, Rheumatoid arthritis 714.0 ; Other psoriasis 696.1 and Cellulitis, axillary fold 682.3 [place] [facility] [address] [place] [address] 38820- 3589 Jan, [facility] [address] [place] [address] 03306- 6792 Dec, [facility] [id number] [place] [address] 88561- 1024 Dec, Other and unspecified hyperlipidemia 272.4 ; Other psoriasis 696.1 and Diabetes mellitus without mention of complication, type II or unspecified type, not stated as uncontrolled 250.00 [place] [facility] [id number] [place] [address], [place] [address]- 6603 04 Dec, 2014 [facility] [place] [facility] [address] [id number] [place] [address]- 3419 November, [facility] [place] [facility] [address] [id number] [place] [address]- 7914 Oct, [facility] [place] [facility] [address] [id number] [place] [address]- 9125 Oct, [facility] [place] [facility] [address] [id number] [place] [address]- 8110 24 Sep, 2014 [facility] [place] [facility] [address] [id number] [place] [address]- 4563 24 Sep, 2014 [facility] [place] [facility] [address] [id number] [place] [address]- 3720 Sep, [facility] [place] [facility] [address] [id number] [place] [address]- 6737 Sep, [facility] [place] [facility] [address] [id number] [place] [address]- 4033 Sep, [facility] [place] [facility] [address] [id number] [place] [address]- 9688 Sep, [facility] [place] [facility] [address] [id number] [place] [address]- 4571 Sep, [facility] [place] [facility] [address] [id number] [place] [address]- 3961 Sep, [facility] [place] [facility] [address] [id number] [place] [address]- 8354 Sep, [facility] [place] [facility] [address] [id number] [place] [address]- 6206 Sep, [facility] [place] [facility] [address] [id number] [place] [address]- 5600 Jul, [facility] [place] [facility] [address] [id number] [place] [address]- 2907 Jul, [facility] [place] [facility] [address] [id number] [place] [address]- 4445 16 Jul, 2014 [facility] [place] [facility] [address] [id number] [place] [address]- 6316 16 Jul, 2014 [facility] [place] [facility] [address] [id number] [place] [address]- 5050 15 Jul, 2014 [facility] [place] [facility] [address] [id number] [place] [address]- 0230 15 Jul, 2014 [facility] [place] [facility] [address] [id number] [place] [address]- 7031 13 Jul, 2014 [facility] [place] [facility] [address] [id number] [place] [address]- 2033 Jul, [facility] [place] [facility] [address] [id number] [place] [address]- 3238 Jun, [facility] [place] [facility] [address] [id number] [place] [address]- 3450 Jun, [facility] [place] [facility] [address] [id number] [place] [address]- 8061 Jun, [facility] [place] [facility] [address] [id number] [place] [address]- 2541 Jun, [facility] [place] [facility] [address] [id number] [place] [address]- 3577 Jun, [facility] [place] [facility] [address] [id number] [place] [address]- 2412 Jun, [facility] [place] [facility] [address] [id number] [place] [address]- 7816 Apr, [facility] [place] [facility] [address] [id number] [place] [address]- 6085 Apr, [facility] [place] [facility] [address] [id number] [place] [address]- 8684 08 Mar, 2014 [facility] [place] [facility] [address] [id number] [place] [address]- 2842 Mar, [facility] [place] [facility] [address] [id number] [place] [address]- 3312 Feb, [facility] [place] [facility] [address] [id number] [place] [address]- 2956 Feb, [facility] [place] [facility] [address] [id number] [place] [address]- 2322 Jan, [facility] [place] [facility] [address] [id number] [place] [address]- 6219 Jan, [facility] [place] [facility] [address] [id number] [place] [address]- 0093 Jan, [facility] [place] [facility] [address] [id number] [place] [address]- 0619 Jan, [facility] [place] [facility] [address] [id number] [place] [address]- 0953 Jan, [facility] [place] [facility] [address] [id number] [place] [address]- 1744 Dec, [facility] [place] [facility] [address] [id number] [place] [address]- 7000 Dec, [facility] [place] [facility] [address] [id number] [place] [address]- 2849 Dec, [facility] [place] [facility] [address] [id number] [place] [address]- 0917 Dec, [facility] [place] [facility] [address] [id number] [place] [address]- 8936 November, [facility] [place] [facility] [address] [id number] [place] [address]- 5102 November, [facility] [place] [facility] [address] [id number] [place] [address]- 4965 Oct, [facility] [place] [facility] [address] [id number] [place] [address]- 9116 Oct, [facility] [place] [facility] [address] [id number] [place] [address]- 6663 05 Sep, 2013 [facility] [place] [facility] [address] [id number] [place] [address]- 4588 Sep, [facility] [place] [facility] [address] [id number] [place] [address]- 3906 Sep, [facility] [place] [facility] [address] [id number] [place] [address]- 4502 Sep, [facility] [place] [facility] [address] [id number] [place] [address]- 4973 Aug, [facility] [place] [facility] [address] [id number] [place] [address]- 0724 Aug, [facility] [place] [facility] [address] [id number] [place] [address]- 0421 Aug, [facility] [place] [facility] [address] [id number] [place] [address]- 7904 Aug, [facility] [place] [facility] [address] [id number] [place] [address]- 2883 Aug, [facility] [place] [facility] [address] [id number] [place] [address]- 8272 Aug, [facility] [place] [facility] [address] [id number] [place] [address]- 9887 Jul, [facility] [place] [facility] [address] [id number] [place] [address]- 8883 Jul, [facility] [place] [facility] [address] [id number] [place] [address]- 8423 Jul, [facility] [place] [facility] [address] [id number] [place] [address]- 2456 Jul, [facility] [place] [facility] [address] [id number] [place] [address]- 3419 Jul, [facility] [place] [facility] [address] [id number] [place] [address]- 5911 Jul, [facility] [address] [id number] [place] [address]- 6903 Jul, [facility] [place] [facility] [address] [id number] [place] [address]- 1669 Jul, [facility] [address] [facility] [id number] [place] [address]- 5141 Jun, [facility] [place] [facility] [address] [id number] [place] [address]- 6741 Jun, [facility] [address] [id number] [place] [address]- 4231 Jun, [facility] [place] [facility] [address] [id number] [place] [address]- 9118 Jun, [facility] [place] [facility] [address] [id number] [place] [address]- 4032 Jun, [facility] [place] [facility] [address] [id number], [place] [address]- 7953 Jun, [facility] [place] [facility] [address] [id number] [place] [address]- 0945 May, [facility] [place] [facility] [address] [id number], [place] [address]- 1070 May, [facility] [place] [facility] [address] [id number], [place] [address]- 0036 May, [facility] [place] [facility] [address] [id number], [place] [address]- 0738 May, [facility] [place] [facility] [address] [id number], [place] [address]- 2855 Apr, [facility] [place] [facility] [address] [id number], [place] [address]- 3011 Apr, [facility] [place] [facility] [address] [facility] [id number], [place] [address]- 9675 Apr, [facility] [place] [facility] [address] [id number] [place] [address]- 4179 07 Apr, 2013 [facility] [address] [id number] [place] [address] 25 Mar, 2012 [facility] [place] [facility] [address] [id number] [place] [address] 23 Mar, 2013 [facility] [place] [facility] [address] [id number] [place] [address] 16 Mar, 2012 [facility] [place] [facility] [address] [id number] [place] [address] 12 Mar, 2013 [facility] [place] [facility] [address] [id number] [place] [address] 09 Mar, 2013 [facility] [place] [facility] [address] [id number] [place] [address] 04 Mar, 2013 [facility] [place] [facility] [address] [id number] [place] [address] Feb, [facility] [place] [facility] [address] [id number] [place] [address] Feb, [facility] [place] [facility] [address] [id number] [place] [address] Feb, [facility] [place] [facility] [address] [id number] [place] [address] Feb, [facility] [place] [facility] [address] [id number] [place] [address] Jan, [facility] [place] [facility] [address] [id number] [place] [address] Dec, [facility] [place] [facility] [address] [id number] [place] [address] November, [facility] [place] [facility] [address] [id number] [place] [address] Sep, [facility] [place] [facility] [address] [id number] [place] [address] Aug, [facility] [place] [facility] [address] [id number] [place] [address] Aug, [facility] [place] [facility] [address] [id number] [place] [address] Jul, [facility] [place] [facility] [address] [id number] [place] [address] Jul, [facility] [place] [facility] [address] [id number] [place] [address] Jun, [facility] [place] [facility] [address] [id number] [place] [address] Jun, [facility] [place] [facility] [address] [id number] [place] [address] Jun, [facility] [place] [facility] [address] [id number] [place] [address] Jun, [facility] [place] [facility] [address] [id number] [place] [address] Jun, [facility] [place] [facility] [address] [id number] [place] [address] Jun, [facility] [place] [facility] [address] [id number] [place] [address] May, [facility] [place] [facility] [address] [id number] [place] [address] May, [facility] [place] [facility] [address] [id number] [place] [address] May, [facility] [place] [facility] [address] [id number] [place] [address] May, [facility] [place] [facility] [address] [id number] [place] [address] May, [facility] [place] [facility] [address] [id number] [place] [address] May, [facility] [place] [facility] [address] [id number], [place] [address] 15 May, 2012 [facility] [place] [facility] [address] [id number] [place] [address] 15 May, 2012 [facility] [place] [facility] [address] [id number], [place] [address] 14 May, 2012 [facility] [place] [facility] [address] [id number] [place] [address] 14 May, 2012 [facility] [place] [facility] [address] [id number], [place] [address] 12 May, 2012 [facility] [place] [facility] [address] [id number] [place] [address] 12 May, 2012 [facility] [place] [facility] [address] [id number] [place] [address] May, [facility] [place] [facility] [address] [facility] [id number], [place] [address] May, [facility] [place] [facility] [address] [id number] [place] [address] May, [facility] [place] [facility] [address] [id number], [place] [address] Apr, [facility] [place] [facility] [address] [id number] [place] [address] Apr, [facility] [place] [facility] [address] [id number], [place] [address] Apr, [facility] [place] [facility] [address] [id number], [place] [address] Apr, [facility] [place] [facility] [address] [id number] [place] [address] Apr, [facility] [place] [facility] [address] [facility] [id number], [place] [address] Apr, [facility] [place] [facility] [address] [facility] [id number] [place] [address] Apr, [facility] [place] [facility] [address] [id number] [place] [address] Apr, [facility] [place] [facility] [address] [id number] [place] [address] Apr, [facility] [place] [facility] [address] [id number] [place] [address] Apr, [facility] [place] [facility] [address] [id number] [place] [address] 25 Mar, 2012 [facility] [place] [facility] [address] [id number] [place] [address] 24 Mar, 2012 [facility] [place] [facility] [address] [id number] [place] [address] 14 Mar, 2012 [facility] [place] [facility] [address] [id number] [place] [address] 04 Mar, 2012 [facility] [place] [facility] [address] [id number] [place] [address] Feb, [facility] [place] [facility] [address] [id number] [place] [address] Feb, [facility] [place] [facility] [address] [id number] [place] [address] 15 Feb, 2012 [facility] [place] [facility] [address] [id number] [place] [address] 14 Feb, 2012 [facility] [place] [facility] [address] [id number] [place] [address] Feb, [facility] [place] [facility] [address] [id number] [place] [address] November, [facility] [place] [facility] [address] [id number] [place] [address] Aug, [facility] [place] [facility] [address] [id number] [place] [address] May, [facility] [place] [facility] [address] [id number] [place] [address] May, [facility] [address] [facility] [id number] [place] [address] Apr, [facility] [address] [facility] [id number], [place] [address] Mar, IMMUNIZATIONS No Known Immunizations SOCIAL HISTORY Never Assessed REASON FOR VISIT Refill request PLAN OF CARE VITAL SIGNS MEDICATIONS Unknown [...] Hospitalization History Resp distress with hypoxia, pulmonary fibrosis-[facility] 08/03/16 Hospitalization History Shortness of breath 04/2017
--- OUTSIDE RECORDS SUMMARY | 2018-09-03 14:49 | XMS REPORT ---
Author Author RILEY SCHRADER Organization [facility] Address [address] [place] [address] Care Team Providers Care Medical Social Worker Name Role Phone RILEY SCHRADER Unavailable PROBLEMS Type Condition ICD9-CM Code OLT38-DD Code Onset Dates Condition Status SNOMED Code Problem Psoriasis L40.9 Active 1890423 Problem Rheumatoid arthritis involving multiple sites with positive rheumatoid factor M05.79 Active 505297883 Problem Vision loss, left eye H54.62 Active 95419511 Problem Primary insomnia F51.01 Active 2132646 Problem Other elevated white blood cell (WBC) count D72.828 Active 648504754 Problem Essential hypertension I10 Active 22281485 Problem Hematochezia K92.1 Active 535379171 Problem Type 2 diabetes mellitus with hyperglycemia, without long-term current use of insulin E11.65 Active 10339718 Problem Tobacco use Z72.0 Active 041603879 Problem Renal cyst, right N28.1 Active 58854110 Problem Idiopathic pulmonary fibrosis J84.112 Active 313431667 Problem Chronic obstructive pulmonary disease, unspecified J44.9 Active 43762356 Problem Lactic acidosis E87.2 Active 31281712 Problem Hyperlipidemia E78.5 Active 23834088 ALLERGIES Substance Reaction Event Type Date Status Naprosyn Unknown Drug Allergy Jan, Active Celebrex Unknown Drug Allergy Jan, Active ENCOUNTERS Encounter Location Date Diagnosis [facility] [address] [facility] [id number] [address] Mar, [facility] [id number] [address] Feb, [facility] [id number] [address] Jan, Rheumatoid arthritis involving multiple sites with positive rheumatoid factor M05.79 and Psoriasis L40.9 [facility] [id number] [address] Jan, [facility] [address] [address] November, [facility] [address] [address] November, Rheumatoid arthritis involving multiple sites with positive rheumatoid factor M05.79 [facility] [address] [address] November, Rheumatoid arthritis involving multiple sites with positive rheumatoid factor M05.79 [facility] [address] [address] November, Rheumatoid arthritis involving multiple sites with positive rheumatoid factor M05.79 [place] [id number] [place] [address]446- 5294 Oct, Rheumatoid arthritis involving multiple sites with positive rheumatoid factor M05.79 [facility] [address] [address] Oct, [facility] [address] [address] 0[address] Oct, Rheumatoid arthritis involving multiple sites with positive rheumatoid factor M05.79 [facility] [address] [address] 7863 Oct, Rheumatoid arthritis involving multiple sites with positive rheumatoid factor M05.79 ; Type 2 diabetes mellitus with hyperglycemia, without long-term current use of insulin E11.65 ; Hyperlipidemia E78.5 and Other elevated white blood cell (WBC) count D72.828 [facility] [address] [address] Oct, Chronic obstructive pulmonary disease, unspecified J44.9 [facility] [address] [address] 0087 Oct, Rheumatoid arthritis involving multiple sites with positive rheumatoid factor M05.79 [facility] [address] [address] Oct, Type 2 diabetes mellitus with hyperglycemia, without long- term current use of insulin E11.65 [place] [id number] [place] [address] 42299- 6684 Sep, [place] [id number] [place] [address] 07680- 9277 Sep, Rheumatoid arthritis involving multiple sites with positive rheumatoid factor M05.79 ; Visit for TB skin test Z11.1 and Psoriasis L40.9 [place] [address] [place] [address] 39689- 1297 Sep, Type 2 diabetes mellitus with hyperglycemia, without long- term current use of insulin E11.65 ; Rheumatoid arthritis involving multiple sites with positive rheumatoid factor M05.79 ; Hyperlipidemia E78.5 ; Essential hypertension I10 ; Other elevated white blood cell (WBC) count D72.828 ; Primary insomnia F51.01 and Tobacco use Z72.0 [place] [id number] [place] [address] 21302- 9043 Sep, [place] [id number] [place] [address] 76096- 5489 Aug, Type 2 diabetes mellitus with hyperglycemia, without long- term current use of insulin E11.65 and Hyperlipidemia E78.5 [place] [address] [address] 7334 Jul, [place] [id number] [place] [address] 96554- 3492 Jul, Rheumatoid arthritis involving multiple sites with positive rheumatoid factor M05.79 [place] [address] [address]- 1161 Jul, Rheumatoid arthritis involving multiple sites with positive rheumatoid factor M05.79 [place] [address] [place] [address] 94453- 8987 Jun, Essential hypertension I10 and Hyperlipidemia E78.5 [place] [id number] [place] [address] 11066- 0590 Jun, Chronic obstructive pulmonary disease, unspecified J44.9 [facility] [address] [address] 8[address] Jun, [facility] [address] [address] May, Type 2 diabetes mellitus without complication E11.9 ; Rheumatoid arthritis involving multiple sites with positive rheumatoid factor M05.79 ; Psoriasis L40.9 and Essential hypertension I10 [facility] [address] [address] May, Dental examination Z01.20 and Dental caries K02.9 [facility] [address] [place] [address] 26522- 8652 Apr, Type 2 diabetes mellitus without complication E11.9 ; Type 2 diabetes mellitus with hyperglycemia, without long-term current use of insulin E11.65 ; Idiopathic pulmonary fibrosis J84.112 ; Essential hypertension I10 ; Tobacco use Z72.0 ; Rheumatoid arthritis involving multiple sites with positive rheumatoid factor M05.79 ; Hyperlipidemia E78.5 and Chronic obstructive pulmonary disease, unspecified J44.9 [facility] [address] [place] [address] 81054- 1113 Apr, Dental examination Z01.20 [facility] [address] [address] 48[address] Apr, [facility] [address] [address]- 5351 Apr, [facility] [address] [address]- 5281 Apr, [facility] [id number] [address]- 1082 Apr, [facility] [address] [address]- 7819 Apr, [facility] [id number] [place] [address] 42637- 2449 Apr, Type 2 diabetes mellitus without complication E11.9 and Essential hypertension I10 [facility] [id number] [place] [address] 31622- 4037 Mar, [facility] [id number] [place] [address] 28045- 1768 Mar, Rheumatoid arthritis involving multiple sites with positive rheumatoid factor M05.79 [facility] [id number] [place] [address] 26065- 5072 Mar, Type 2 diabetes mellitus without complication E11.9 ; Essential hypertension I10 and Hyperlipidemia E78.5 [place] [id number] [place] [address] 99571- 0701 Mar, Rheumatoid arthritis involving multiple sites with positive rheumatoid factor M05.79 [place] [id number] [place] [address] 28030- 3241 Mar, [facility] [id number] [place] [address] 88536- 4234 Mar, Hyperlipidemia E78.5 ; Essential hypertension I10 and Type 2 diabetes mellitus without complication E11.9 [place] [id number] [place] [address] 85189- 1794 Feb, Rheumatoid arthritis involving multiple sites with positive rheumatoid factor M05.79 and Essential hypertension I10 [place] [id number] [place] [address] 24554- 5646 Jan, Rheumatoid arthritis involving multiple sites with positive rheumatoid factor M05.79 [facility] [id number] [place] [address] 14173- 3953 Dec, Rheumatoid arthritis involving multiple sites with positive rheumatoid factor M05.79 [facility] [id number] [place] [address] 35019- 9929 Dec, [facility] [id number] [place] [address] 81748- 2490 November, Rheumatoid arthritis involving multiple sites with positive rheumatoid factor M05.79 and Psoriasis L40.9 [facility] [address] [address]- 5413 November, Hyperlipidemia E78.5 [facility] [id number] [place] [address] 84174- 8312 November, Type 2 diabetes mellitus without complication E11.9 [facility] [address] [place] [address] 15686- 9424 November, [facility] [id number] [place] [address] 64947- 3607 November, Rheumatoid arthritis involving multiple sites with positive rheumatoid factor M05.79 ; Hyperlipidemia E78.5 ; Type 2 diabetes mellitus without complication E11.9 ; Idiopathic pulmonary fibrosis J84.112 and Tobacco use Z72.0 [place] [id number] [place] [address] 69373- 7194 Oct, Essential hypertension I10 and Rheumatoid arthritis involving multiple sites with positive rheumatoid factor M05.79 [place] [id number] [place] [address] 47482- 6408 Sep, Rheumatoid arthritis involving multiple sites with positive rheumatoid factor M05.79 and Psoriasis L40.9 [address] [address] [place] [address] 29469- 3556 Jul, Rheumatoid arthritis involving multiple sites with positive rheumatoid factor M05.79 [place] [address] [place] [address] 04085- 4267 Jul, Idiopathic pulmonary fibrosis J84.112 [facility] [place] [id number] [place] [address] [id number] Jul, [place] [address] [place] [address] 11453- 1285 Jul, Idiopathic pulmonary fibrosis J84.112 [facility] [address] [place] [address] 52948- 0134 Jul, Idiopathic pulmonary fibrosis J84.112 and Hypoxia R09.02 [place] [id number] [place] [address] 64918- 8222 Jul, Cough R05 and Idiopathic pulmonary fibrosis J84.112 [place] [id number] [place] [address] 57693- 3861 Apr, Type 2 diabetes mellitus without complication E11.9 ; Rheumatoid arthritis involving multiple sites with positive rheumatoid factor M05.79 ; Psoriasis L40.9 ; Hyperlipidemia E78.5 ; Idiopathic pulmonary fibrosis J84.112 and Essential hypertension I10 [place] [address] 67363- 3435 Feb, [place] [address] 46141- 3201 Feb, [place] [address] 13971- 7856 Dec, Right ankle gives way M25.371 [place] [address] 97502- 2313 November, [place] [address] 93145- 3017 November, Wrist pain, left M25.532 [place] [address] 38104- 5368 Sep, Psoriasis L40.9 [place] [id number] [place] [address] 27025- 1779 Sep, COPD exacerbation J44.1 [place] [id number] [place] [address] 33422- 1191 Aug, [place] [id number] [place] [address] 81198- 9927 Aug, Rheumatoid arthritis involving multiple sites with positive rheumatoid factor M05.79 and Hyperlipidemia E78.5 [place] [id number] [place] [address] 86956- 9196 Aug, [place] [address] 93536- 3538 Aug, Psoriasis L40.9 ; Rheumatoid arthritis involving multiple sites with positive rheumatoid factor M05.79 and Essential hypertension I10 [place] [id number] [place] [address] 19997- 3059 Jul, [place] [id number] [place] [address] 13338- 5526 Jul, [place] [id number] [place] [address] 47609- 9086 Jul, Type 2 diabetes mellitus without complication E11.9 ; Hyperlipidemia E78.5 and Rheumatoid arthritis involving multiple sites with positive rheumatoid factor M05.79 [place] [id number] [place] [address] 50240- 8615 Jun, [place] [id number] [place] [address] 56556- 7269 Apr, [place] [id number] [place] [address] 80939- 3162 Mar, [place] [id number] [place] [address] 78569- 6582 Mar, [place] [id number] [place] [address] 40107- 4077 Mar, Rheumatoid arthritis 714.0 ; Other psoriasis 696.1 and Cellulitis, axillary fold 682.3 [place] [id number] [place] [address] 41224- 6986 Jan, [place] [id number] [place] [address] 55318- 7873 Dec, [place] [id number] [place] [address] 95050- 7856 Dec, Other and unspecified hyperlipidemia 272.4 ; Other psoriasis 696.1 and Diabetes mellitus without mention of complication, type II or unspecified type, not stated as uncontrolled 250.00 [place] [id number] [place] [address] 77954- 8982 Dec, [facility] [place] [facility] [address] [id number] [place] [address]- 6437 November, [facility] [place] [facility] [address] [id number] [place] [address]- 7546 Oct, [facility] [place] [facility] [address] [id number] [place] [address]- 2164 Oct, [facility] [place] [facility] [address] [id number] [place] [address]- 4256 24 Sep, 2014 [facility] [place] [facility] [address] [id number] [place] [address]- 5822 24 Sep, 2014 [facility] [place] [facility] [address] [id number] [place] [address]- 4834 Sep, [facility] [place] [facility] [address] [id number] [place] [address]- 6898 Sep, [facility] [place] [facility] [address] [id number] [place] [address]- 3442 Sep, [facility] [place] [facility] [address] [id number] [place] [address]- 3608 Sep, [facility] [place] [facility] [address] [id number] [place] [address]- 6665 Sep, [facility] [place] [facility] [address] [id number] [place] [address]- 7290 Sep, [facility] [place] [facility] [address] [id number] [address]- 2056 Sep, [facility] [place] [facility] [address] [id number] [place] [address]- 4623 Sep, [facility] [place] [facility] [address] [id number] [place] [address]- 4016 Jul, [facility] [place] [facility] [address] [id number] [place] [address]- 2546 Jul, [facility] [place] [facility] [address] [id number] [place] [address]- 3104 16 Jul, 2014 [facility] [place] [facility] [address] [id number] [place] [address]- 8098 16 Jul, 2014 [facility] [place] [facility] [address] [id number] [place] [address]- 8146 15 Jul, 2014 [facility] [place] [facility] [address] [id number] [place] [address]- 7664 15 Jul, 2014 [facility] [place] [facility] [address] [id number] [place] [address]- 0879 13 Jul, 2014 [facility] [place] [facility] [address] [id number] [place] [address]- 2003 13 Jul, 2014 [facility] [place] [facility] [address] [id number] [place] [address]- 6636 11 Jun, 2014 [facility] [place] [facility] [address] [id number] [place] [address]- 2863 Jun, [facility] [place] [facility] [address] [id number] [place] [address]- 7737 Jun, [facility] [place] [facility] [address] [id number] [place] [address]- 0518 Jun, [facility] [place] [facility] [address] [id number] [place] [address]- 2485 Jun, [facility] [place] [facility] [address] [id number] [place] [address]- 1699 Jun, [facility] [place] [facility] [address] [id number] [place] [address]- 8364 Apr, [facility] [place] [facility] [address] [id number] [place]- 3086 Apr, [facility] [place] [facility] [address] [id number] [place] 3742 Mar, [facility] [place] [facility] [address] [id number] [place] 5433 Mar, [facility] [place] [facility] [address] [id number] [place] [address]- 7741 Feb, [facility] [place] [facility] [address] [id number] [place] [address]- 9141 Feb, [facility] [place] [facility] [address] [id number] [place] [address]- 9545 Jan, [facility] [place] [facility] [address] [id number] [place] [address]- 1178 Jan, [facility] [place] [facility] [address] [id number] [place] [address]- 2815 Jan, [facility] [place] [facility] [address] [id number] [place] [address]- 7692 Jan, [facility] [place] [facility] [address] [id number] [place] [address]- 1685 Jan, [facility] [place] [facility] [address] [id number] [place] [address]- 8318 Dec, [facility] [place] [facility] [address] [id number] [place] [address]- 3292 Dec, [facility] [place] [facility] [address] [id number] [place] [address]- 9842 Dec, [facility] [place] [facility] [address] [id number] [place] [address]- 9796 Dec, [facility] [place] [facility] [address] [id number] [place] [address]- 8051 November, [facility] [place] [facility] [address] [id number] [place] [address]- 3525 November, [facility] [place] [facility] [address] [id number] [place] [address]- 2898 Oct, [facility] [place] [facility] [address] [id number] [place] [address]- 2635 Oct, [facility] [place] [facility] [address] [id number] [place] [address]- 5197 Sep, [facility] [place] [facility] [address] [id number] [place] [address]- 8261 Sep, [facility] [place] [facility] [address] [id number] [place] [address]- 7665 Sep, [facility] [place] [facility] [address] [id number] [place] [address]- 7096 Sep, [facility] [place] [facility] [address] [id number] [place] [address]- 6991 Aug, [facility] [place] [facility] [address] [id number] [place] [address]- 1650 Aug, [facility] [place] [facility] [address] [id number] [place] [address]- 4961 Aug, [facility] [place] [facility] [address] [id number] [place] [address]- 9530 Aug, [facility] [place] [facility] [address] [id number] [place] [address]- 3132 Aug, [facility] [place] [facility] [address] [id number] [place] [address]- 9200 Aug, [facility] [place] [facility] [address] [id number] [place] [address]- 7014 Jul, [facility] [place] [facility] [address] [id number] [place] [address]- 5237 Jul, [facility] [place] [facility] [address] [id number] [place] [address]- 5773 Jul, [facility] [place] [facility] [address] [id number] [place] [address]- 2461 Jul, [facility] [place] [facility] [address] [id number] [place] [address]- 8987 Jul, [facility] [place] [facility] [address] [id number] [address]- 6966 Jul, [facility] [place] [facility] [address] [id number] [place] [address]- 5612 08 Jul, 2013 [facility] [place] [facility] [address] [id number] [place] [address]- 6296 Jul, [facility] [place] [facility] [address] [id number] [place] [address]- 7021 Jun, [facility] [place] [facility] [address] [id number] [place] [address]- 6448 Jun, [facility] [place] [facility] [address] [id number] [place] [address]- 6625 Jun, [facility] [place] [facility] [address] [id number] [place] [address]- 4804 Jun, [facility] [place] [facility] [address] [id number] [place] [address]- 3129 Jun, [facility] [place] [facility] [address] [id number] [place] [address]- 6739 Jun, [facility] [place] [facility] [address] [id number] [place] [address]- 0067 May, [facility] [place] [facility] [address] [id number] [place] [address]- 4568 May, [facility] [place] [facility] [address] [id number] [place] [address]- 8690 May, [facility] [place] [facility] [address] [id number] [place] [address]- 4176 May, [facility] [place] [facility] [address] [id number] [place] [address]- 3577 Apr, [facility] [place] [facility] [address] [id number] [place] [address]- 2832 Apr, [facility] [place] [facility] [address] [id number] [place] [address] 08 Apr, 2013 [facility] [place] [facility] [address] [id number] [place] [address] 07 Apr, 2013 [facility] [address] [id number] [place] [address] 25 Mar, 2013 [facility] [place] [facility] [address] [id number] [place] [address] 23 Mar, 2013 [facility] [place] [facility] [address] [id number] [place] [address] 16 Mar, 2013 [facility] [place] [facility] [address] [id number] [place] [address] 12 Mar, 2013 [facility] [place] [facility] [address] [id number] [place] [address] 09 Mar, 2013 [facility] [place] [facility] [address] [id number] [place] [address] 04 Mar, 2013 [facility] [place] [facility] [address] [id number] [place] [address] Feb, [facility] [place] [facility] [address] [id number] [place] [address] Feb, [facility] [place] [facility] [address] [id number] [place] [address] Feb, [facility] [place] [facility] [address] [id number] [place] [address] Feb, [facility] [place] [facility] [address] [id number] [place] [address] Jan, [facility] [place] [facility] [address] [id number] [place] [address] Dec, [facility] [place] [facility] [address] [id number] [place] [address] November, [facility] [place] [facility] [address] [id number] [place] [address] Sep, [facility] [place] [facility] [address] [id number] [place] [address] Aug, [facility] [place] [facility] [address] [id number] [place] [address] Aug, [facility] [address] [id number] [place] [address] Jul, [facility] [place] [facility] [address] [id number] [place] [address] Jul, [facility] [address] [id number] [place] [address] Jun, [facility] [place] [facility] [address] [id number] [place] [address] Jun, [facility] [address] [id number] [place] [address] Jun, [facility] [address] [id number] [place] [address] Jun, [facility] [address] [id number] [place] [address] Jun, [facility] [address] [id number] [place] [address] Jun, [facility] [address] [id number] [place] [address] May, [facility] [address] [id number] [place] [address] 29 May, 2012 [facility] [place] [facility] [address] [id number] [place] [address] May, [facility] [place] [facility] [address] [id number] [place] [address] 28 May, 2012 [facility] [place] [facility] [address] [id number] [place] [address] May, [facility] [place] [facility] [address] [id number] [place] [address] May, [facility] [place] [facility] [address] [id number] [place] [address] 15 May, 2012 [facility] [place] [facility] [address] [id number] [place] [address] 15 May, 2012 [facility] [place] [facility] [address] [id number] [place] [address] 14 May, 2012 [facility] [place] [facility] [address] [id number] [place] [address] 14 May, 2012 [facility] [place] [facility] [address] [id number] [place] [address] May, [facility] [place] [facility] [address] [id number] [place] [address] 12 May, 2012 [facility] [place] [facility] [address] [id number] [place] [address] May, [facility] [place] [facility] [address] [id number] [place] [address] May, [facility] [place] [facility] [address] [id number] [place] [address] May, [facility] [place] [facility] [address] [id number] [place] [address] Apr, [facility] [place] [facility] [address] [id number] [address] Apr, [facility] [place] [facility] [address] [id number] [address] Apr, [facility] [place] [facility] [address] [id number] [address] Apr, [facility] [place] [facility] [address] [id number] [place] [address] Apr, [facility] [place] [facility] [address] [id number] [place] [address] Apr, [facility] [place] [facility] [address] [id number] [place] [address] Apr, [facility] [place] [facility] [address] [id number] [place] [address] Apr, [facility] [place] [facility] [address] [id number] [place] [address] Apr, [facility] [place] [facility] [address] [id number] [place] [address] Apr, [facility] [place] [facility] [address] [id number] [place] [address] 25 Mar, 2012 [facility] [place] [facility] [address] [id number] [place] [address] 24 Mar, 2012 [facility] [place] [facility] [address] [id number] [place] [address] 14 Mar, 2012 [facility] [place] [facility] [address] [id number] [place] [address] 04 Mar, 2012 [facility] [place] [facility] [address] [id number] [place] [address] Feb, [facility] [place] [facility] [address] [id number] [place] [address] Feb, [facility] [place] [facility] [address] [id number] [place] [address] 15 Feb, 2012 [facility] [place] [facility] [address] [id number] [place] [address] Feb, [facility] [place] [facility] [address] [id number] [place] [address] Feb, [facility] [place] [facility] [address] [id number] [place] [address] November, [facility] [place] [facility] [address] [id number] [place] [address] Aug, [facility] [place] [facility] [address] [id number] [place] [address] May, [facility] [place] [facility] [address] [id number] [place] [address] May, [facility] [place] [facility] [address] [facility] [id number] [place] [address] Apr, [facility] [address] [facility] [id number] [place] [address] Mar, IMMUNIZATIONS No Known Immunizations SOCIAL HISTORY Never Assessed REASON FOR VISIT Arthritis--Allison PLAN OF CARE Activity Details Follow Up 3 Months Reason: VITAL SIGNS Height 67 in 2018-02-27 Weight 220.1 lbs 2018-02-27 Temperature 98.2 degrees Fahrenheit 2018-02-27 Heart Rate 92 bpm 2018-02-27 Respiratory Rate 24 2018-02-27 Oximetry on room air:97 % 2018-02-27 BMI 34.47 kg/m2 2018-02-27 Blood pressure systolic 130 mmHg 2018-02-27 Blood pressure diastolic 80 mmHg 2018-02-27 MEDICATIONS Medication Instructions Dosage Frequency Start Date End Date Duration Status Glucocard Expression Test - In Vitro Once a day as directed 24h Apr, Active Ventolin HFA 108 (90 Base) MCG/ACT Inhalation every 4 hrs 2-4 puffs as needed 4h Active Humira 40 MG/0.8ML 0.8 ml Active Glucocard Expression Monitor w/Device as directed Apr, Active Lisinopril 20 mg Orally Once a day 1 tablet 24h Aug, 90 days Active Methotrexate 2.5 MG Orally once every other week 6 tabs November, Active Piroxicam 20 mg Orally Once a day 1 capsule with food 24h 30 days Active Calcipotriene 0.005 % Externally Twice a day 1 application to affected area 12h Sep, Jul, 90 days Active Lipitor 40 mg Orally Once a day 1 tablet 24h Active Advair Diskus 250-50 MCG/DOSE Inhalation Twice a day, approximately 12 hrs apart 1 puff Active Albuterol Sulfate (2.5 MG/3ML) 0.083% Inhalation every 6 hrs 3 ml as needed 6h Mar, Active Folic Acid 1 MG Orally Once a day; except on days you take methotrexate 1 tablet November, Jul, 90 days Active Hydroxychloroquine Sulfate 200 mg Orally Once a day 2 tablet with food or milk 24h 30 Active GlipiZIDE 10 mg Orally twice a day 1 table 12h 90 days Active RESULTS No Results [...]
--- OUTSIDE RECORDS SUMMARY | 2018-09-03 14:50 | XMS REPORT ---
Author Author RILEY SCHRADER [facility] Address [address] 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 Name Role Phone RILEY SCHRADER Unavailable PROBLEMS Type Condition ICD9-CM Code SRF03-SZ Code Onset Dates Condition Status SNOMED Code Problem Psoriasis L40.9 Active 2616977 Problem Rheumatoid arthritis involving multiple sites with positive rheumatoid factor M05.79 Active 141087779 Problem Vision loss, left eye H54.62 Active 78238323 Problem Primary insomnia F51.01 Active 5548252 Problem Other elevated white blood cell (WBC) count D72.828 Active 566753235 Problem Essential hypertension I10 Active 87297265 Problem Hematochezia K92.1 Active 560410300 Problem Type 2 diabetes mellitus with hyperglycemia, without long-term current use of insulin E11.65 Active 84937844 Problem Tobacco use Z72.0 Active 683841732 Problem Renal cyst, right N28.1 Active 91367756 Problem Idiopathic pulmonary fibrosis J84.112 Active 448273119 Problem Chronic obstructive pulmonary disease, unspecified J44.9 Active 33349189 Problem Lactic acidosis E87.2 Active 28939898 Problem Hyperlipidemia E78.5 Active 22145309 ALLERGIES No Information ENCOUNTERS Encounter Location Date Diagnosis [place] [id number], [place] [address] Mar, [facility] [address] [address] Mar, [facility] [id number] [place] [address] 08657- 0457 Feb, [place] [address], [place] [address] Jan, Rheumatoid arthritis involving multiple sites with positive rheumatoid factor M05.[address] [facility] [address], [place] [address] Jan, [facility] [address], [place] [address] November, [facility] [address], [place] [address] November, Rheumatoid arthritis involving multiple sites with positive rheumatoid factor M05.79 [facility] [id number] [place] [address] 84911- 8169 November, Rheumatoid arthritis involving multiple sites with positive rheumatoid factor M05.79 [facility] [id number] [place] [address] 79393- 3550 November, Rheumatoid arthritis involving multiple sites with positive rheumatoid factor M05.79 [facility] [address], [place] [address] 53[address] Oct, Rheumatoid arthritis involving multiple sites with positive rheumatoid factor M05.79 [facility] [address], [place] [address] 6[address] Oct, [facility] [id number] [place] [address] 96739- 5451 Oct, Rheumatoid arthritis involving multiple sites with positive rheumatoid factor M05.79 [facility] [address], [place] [address] Oct, Rheumatoid arthritis involving multiple sites with positive rheumatoid factor M05.79 ; Type 2 diabetes mellitus with hyperglycemia, without long-term current use of insulin E11.65 ; Hyperlipidemia E78.5 and Other elevated white blood cell (WBC) count D72.828 [facility] [address], [place] [address] Oct, Chronic obstructive pulmonary disease, unspecified J44.9 [facility] [address], [place] [address] 1492 Oct, Rheumatoid arthritis involving multiple sites with positive rheumatoid factor M05.79 [facility] [id number], [place] [address] Oct, Type 2 diabetes mellitus with hyperglycemia, without long- term current use of insulin E11.65 [place] [id number] [place] [address] 01780- 9239 Sep, [place] [id number] [place] [address] 49916- 2660 Sep, Rheumatoid arthritis involving multiple sites with positive rheumatoid factor M05.79 ; Visit for TB skin test Z11.1 and Psoriasis L40.9 [place] [id number] [place] [address] 18531- 1606 Sep, Type 2 diabetes mellitus with hyperglycemia, without long- term current use of insulin E11.65 ; Rheumatoid arthritis involving multiple sites with positive rheumatoid factor M05.79 ; Hyperlipidemia E78.5 ; Essential hypertension I10 ; Other elevated white blood cell (WBC) count D72.828 ; Primary insomnia F51.01 and Tobacco use Z72.0 [place] [id number] [place] [address] 01453- 8068 Sep, [place] [address] [id number] [place] [address] 05250- 3481 Aug, Type 2 diabetes mellitus with hyperglycemia, without long- term current use of insulin E11.65 and Hyperlipidemia E78.5 [place] [address], [place] [address] Jul, [place] [address] [id number] [place] [address] 71822- 0181 Jul, Rheumatoid arthritis involving multiple sites with positive rheumatoid factor M05.79 [place] [id number] [place] [address] 58173- 0740 Jul, Rheumatoid arthritis involving multiple sites with positive rheumatoid factor M05.79 [place] [address] [place] [address] 68669- 7413 Jun, Essential hypertension I10 and Hyperlipidemia E78.5 [place] [id number], [place] [address] 0408 Jun, Chronic obstructive pulmonary disease, unspecified J44.9 [facility] [id number] [place] [address] 35785- 5222 Jun, [facility] [id number] [place] [address] 91333- 9373 May, Type 2 diabetes mellitus without complication E11.9 ; Rheumatoid arthritis involving multiple sites with positive rheumatoid factor M05.79 ; Psoriasis L40.9 and Essential hypertension I10 [facility] [address] [id number] May, Dental examination Z01.20 and Dental caries K02.9 [facility] [id number] [place] [address] 55850- 2938 Apr, Type 2 diabetes mellitus without complication E11.9 ; Type 2 diabetes mellitus with hyperglycemia, without long-term current use of insulin E11.65 ; Idiopathic pulmonary fibrosis J84.112 ; Essential hypertension I10 ; Tobacco use Z72.0 ; Rheumatoid arthritis involving multiple sites with positive rheumatoid factor M05.79 ; Hyperlipidemia E78.5 and Chronic obstructive pulmonary disease, unspecified J44.9 [facility] [address] [place] [address] 03497- 5538 Apr, Dental examination Z01.20 [facility] [address], [place] [address] Apr, [facility] [address] [place] [address] 83513- [address]138 Apr, [facility] [address], [place] [address] 7397 Apr, [facility] [id number] [place] [address] 23988- 2017 Apr, [facility] [address], [place] [address]- 0759 Apr, [facility] [id number] [place] [address] 87190- 6622 Apr, Type 2 diabetes mellitus without complication E11.9 and Essential hypertension I10 [facility] [id number] [place] [address] 92037- 1893 Mar, [facility] [id number] [place] [address] 57317- 5783 Mar, Rheumatoid arthritis involving multiple sites with positive rheumatoid factor M05.79 [facility] [id number] [place] [address] 207437- 6763 Mar, Type 2 diabetes mellitus without complication E11.9 ; Essential hypertension I10 and Hyperlipidemia E78.5 [place] [id number] [place] [address] 41823- 3925 Mar, Rheumatoid arthritis involving multiple sites with positive rheumatoid factor M05.79 [place] [id number] [place] [address] 93697- 6631 Mar, [facility] [id number] [place] [address] 68740- 1972 Mar, Hyperlipidemia E78.5 ; Essential hypertension I10 and Type 2 diabetes mellitus without complication E11.9 [facility] [id number] [place] [address] 20086- 5326 Feb, Rheumatoid arthritis involving multiple sites with positive rheumatoid factor M05.79 and Essential hypertension I10 [place] [address] [place] [address] 96778- 2078 Jan, Rheumatoid arthritis involving multiple sites with positive rheumatoid factor M05.79 [facility] [address] [place] [address] 41755- 3381 Dec, Rheumatoid arthritis involving multiple sites with positive rheumatoid factor M05.79 [facility] [address] [id number] [place] [address] 31069- 7084 Dec, [facility] [address] [place] [address] 66900- 8303 November, Rheumatoid arthritis involving multiple sites with positive rheumatoid factor M05.[address] [facility] [address], [place] [address]- 2127 November, Hyperlipidemia E78.5 [facility] [id number] [place] [address] 87573- 8663 November, Type 2 diabetes mellitus without complication E11.9 [place] [id number] [place] [address] 06707- 3680 November, [place] [id number] [place] [address] 29268- 7692 November, Rheumatoid arthritis involving multiple sites with positive rheumatoid factor M05.79 ; Hyperlipidemia E78.5 ; Type 2 diabetes mellitus without complication E11.9 ; Idiopathic pulmonary fibrosis J84.112 and Tobacco use Z72.0 [place] [id number] [place] [address] 34095- 0874 Oct, Essential hypertension I10 and Rheumatoid arthritis involving multiple sites with positive rheumatoid factor M05.79 [place] [id number] [place] [address] 52563- 9508 Sep, Rheumatoid arthritis involving multiple sites with positive rheumatoid factor M05.79 and Psoriasis L40.9 [place] [id number] [place] [address] 15062- 0543 Jul, Rheumatoid arthritis involving multiple sites with positive rheumatoid factor M05.79 [place] [address] [place] [address] 97895- 5498 Jul, Idiopathic pulmonary fibrosis J84.112 [facility] [address] [id number] [place] [address] [id number] Jul, [place] [id number] [place] [address] 28338- 4086 Jul, Idiopathic pulmonary fibrosis J84.112 [place] [address] [place] [address] 36216- 8831 Jul, Idiopathic pulmonary fibrosis J84.112 and Hypoxia R09.02 [place] [id number] [place] [address] 11279- 5382 Jul, Cough R05 and Idiopathic pulmonary fibrosis J84.112 [place] [id number] [place] [address] 58402- 6027 Apr, Type 2 diabetes mellitus without complication E11.9 ; Rheumatoid arthritis involving multiple sites with positive rheumatoid factor M05.79 ; Psoriasis L40.9 ; Hyperlipidemia E78.5 ; Idiopathic pulmonary fibrosis J84.112 and Essential hypertension I10 [place] [address] [id number] [place] [address] 43009- 4985 Feb, [place] [id number] [place] [address] 94203- 1375 Feb, [place] [address] [id number] [place] [address] 19868- 5718 Dec, Right ankle gives way M25.371 [place] [id number] [place] [address] 44897- 9065 November, [place] [address] [id number] [place] [address] 58097- 2375 November, Wrist pain, left M25.532 [place] [address] [id number] [place] [address] 32481- 7709 Sep, Psoriasis L40.9 [place] [id number] [place] [address] 37184- 5321 Sep, COPD exacerbation J44.1 [place] [address] [id number] [place] [address] 53693- 5704 Aug, [place] [address] [id number] [place] [address] 54287- 1684 Aug, Rheumatoid arthritis involving multiple sites with positive rheumatoid factor M05.79 and Hyperlipidemia E78.5 [place] [address] [id number] [place] [address] 24998- 5122 Aug, [place] [id number] [place] [address] 63395- 4300 Aug, Psoriasis L40.9 ; Rheumatoid arthritis involving multiple sites with positive rheumatoid factor M05.79 and Essential hypertension I10 [place] [id number] [place] [address] 54584- 7687 Jul, [facility] [address] 15490- 9595 Jul, [place] [address] 00056- 6413 Jul, Type 2 diabetes mellitus without complication E11.9 ; Hyperlipidemia E78.5 and Rheumatoid arthritis involving multiple sites with positive rheumatoid factor M05.79 [place] [address] 32267- 4550 Jun, [place] [address] 92701- 7780 Apr, [place] [address] [id number] [place] [address] 22889- 2292 Mar, [place] [address] 33188- 6779 Mar, [place] [address] [id number] [place] [address] 54033- 2897 Mar, Rheumatoid arthritis 714.0 ; Other psoriasis 696.1 and Cellulitis, axillary fold 682.3 [place] [id number] [place] [address] 55335- 2246 Jan, [facility] [id number] [place] [address] 89863- 8019 Dec, [facility] [address] 85208- 6373 Dec, Other and unspecified hyperlipidemia 272.4 ; Other psoriasis 696.1 and Diabetes mellitus without mention of complication, type II or unspecified type, not stated as uncontrolled 250.00 [place] [id number] [place] [address] 19040- 0709 Dec, [facility] [place] [facility] [address] [id number] [place] [address]- 5479 November, [facility] [place] [facility] [address] [id number] [place] [address]- 3067 Oct, [facility] [place] [facility] [address] [id number] [place] [address]- 6963 Oct, [facility] [place] [facility] [address] [id number] [place] [address]- 4517 Sep, [facility] [place] [facility] [address] [id number] [place] [address]- 5979 24 Sep, 2014 [facility] [place] [facility] [address] [id number] [place] [address]- 0438 Sep, [facility] [place] [facility] [address] [id number] [place] [address]- 6355 Sep, [facility] [place] [facility] [address] [id number] [place] [address]- 4497 Sep, [facility] [place] [facility] [address] [id number] [place] [address]- 0325 Sep, [facility] [place] [facility] [address] [id number] [place] [address]- 2039 Sep, [facility] [place] [facility] [address] [id number] [place] [address]- 9289 Sep, [facility] [place] [facility] [address] [id number] [place] [address]- 1924 Sep, [facility] [place] [facility] [address] [id number] [place] [address]- 4890 Sep, [facility] [place] [facility] [address] [id number] [place] [address]- 3519 Jul, [facility] [place] [facility] [address] [id number] [place] [address]- 2524 Jul, [facility] [place] [facility] [address] [id number] [place] [address]- 8683 16 Jul, 2014 [facility] [place] [facility] [address] [id number] [place] [address]- 7602 16 Jul, 2014 [facility] [place] [facility] [address] [id number] [place] [address]- 0727 15 Jul, 2014 [facility] [place] [facility] [address] [id number] [place] [address]- 0177 15 Jul, 2014 [facility] [place] [facility] [address] [id number] [place] [address]- 1037 13 Jul, 2014 [facility] [place] [facility] [address] [id number] [place] [address]- 6375 13 Jul, 2014 [facility] [place] [facility] [address] [id number] [place] [address]- 5797 11 Jun, 2014 [facility] [place] [facility] [address] [id number] [place] [address]- 9841 Jun, [facility] [place] [facility] [address] [id number] [place] [address]- 6459 Jun, [facility] [place] [facility] [address] [id number] [place] [address]- 2412 Jun, [facility] [place] [facility] [address] [id number] [place] [address]- 5757 Jun, [facility] [place] [facility] [address] [id number] [place] [address]- 2318 Jun, [facility] [place] [facility] [address] [id number] [place] [address]- 6697 Apr, [facility] [place] [facility] [address] [id number] [place] [address]- 6104 Apr, [facility] [place] [facility] [address] [id number] [place] [address]- 0776 08 Mar, 2014 [facility] [place] [facility] [address] [id number] [place] [address]- 0580 Mar, [facility] [place] [facility] [address] [id number] [place] [address]- 1321 Feb, [facility] [place] [facility] [address] [id number] [place] [address]- 6692 Feb, [facility] [place] [facility] [address] [id number] [place] [address]- 5424 Jan, [facility] [place] [facility] [address] [id number] [place] [address]- 0025 Jan, [facility] [place] [facility] [address] [id number] [place] [address]- 4804 Jan, [facility] [place] [facility] [address] [id number] [place] [address]- 8996 Jan, [facility] [place] [facility] [address] [id number] [place] [address]- 0051 Jan, [facility] [place] [facility] [address] [id number] [place] [address]- 5692 Dec, [facility] [place] [facility] [address] [id number] [place] [address]- 5956 Dec, [facility] [place] [facility] [address] [id number] [place] [address]- 9204 Dec, [facility] [place] [facility] [address] [id number] [place] [address]- 5233 Dec, [facility] [place] [facility] [address] [id number] [place] [address]- 0087 November, [facility] [place] [facility] [address] [id number] [place] [address]- 5637 November, [facility] [place] [facility] [address] [id number] [place] [address]- 3364 Oct, [facility] [place] [facility] [address] [id number] [place] [address]- 9679 Oct, [facility] [place] [facility] [address] [id number] [place] [address]- 0879 05 Sep, 2013 [facility] [place] [facility] [address] [id number] [place] [address]- 1490 Sep, [facility] [place] [facility] [address] [id number] [place] [address]- 1936 Sep, [facility] [place] [facility] [address] [id number] [place] [address]- 4036 Sep, [facility] [place] [facility] [address] [id number] [place] [address]- 3646 Aug, [facility] [place] [facility] [address] [id number] [place] [address]- 5321 Aug, [facility] [place] [facility] [address] [id number] [place] [address]- 9865 Aug, [facility] [place] [facility] [address] [id number] [place] [address]- 7688 Aug, [facility] [place] [facility] [address] [id number] [place] [address]- 8044 Aug, [facility] [place] [facility] [address] [id number] [place] [address]- 9646 Aug, [facility] [place] [facility] [address] [id number] [place] [address]- 0661 Jul, [facility] [place] [facility] [address] [id number] [place] [address]- 5680 Jul, [facility] [place] [facility] [address] [id number] [place] [address]- 8908 Jul, [facility] [place] [facility] [address] [id number] [place] [address]- 7478 Jul, [facility] [place] [facility] [address] [id number] [place] [address]- 7006 Jul, [facility] [place] [facility] [address] [id number] [place] [address]- 7644 Jul, [facility] [address] [id number] [place] [address]- 8839 Jul, [facility] [place] [facility] [address] [id number] [place] [address]- 3690 Jul, [facility] [place] [facility] [address] [id number] [place] [address]- 6660 Jun, [facility] [place] [facility] [address] [id number] [place] [address]- 9858 Jun, [facility] [place] [facility] [address] [id number] [place] 2203 Jun, [facility] [place] [facility] [address] [id number] [place] [address]- 1166 Jun, [facility] [place] [facility] [address] [id number] [place] [address]- 4660 Jun, [facility] [place] [facility] [address] [id number] [place] [address]- 8848 Jun, [facility] [place] [facility] [address] [id number] [place] [address]- 7943 May, [facility] [place] [facility] [address] [id number] [place] [address]- 8907 May, [facility] [place] [facility] [address] [id number] [place] [address]- 5487 May, [facility] [place] [facility] [address] [id number] [address]- [address] May, [facility] [place] [facility] [address] [id number] [place] [address] Apr, [facility] [place] [facility] [address] [id number] [place] [address] Apr, [facility] [place] [facility] [address] [id number] [place] [address] Apr, [facility] [place] [facility] [address] [id number] [place] [address] 07 Apr, 2013 [facility] [address] [id number] [place] [address] 25 Mar, 2012 [facility] [place] [facility] [address] [id number] [place] [address] 23 Mar, 2013 [facility] [place] [facility] [address] [id number] [place] [address] 16 Mar, 2013 [facility] [place] [facility] [address] [id number] [place] [address] 12 Mar, 2013 [facility] [address] [id number] [place] [address] 09 Mar, 2013 [facility] [place] [facility] [address] [id number] [place] [address] 04 Mar, 2013 [facility] [address] [id number] [place] [address] Feb, [facility] [place] [facility] [address] [id number] [place] [address] Feb, [facility] [place] [facility] [address] [id number] [place] [address] Feb, [facility] [place] [facility] [address] [id number] [place] [address] Feb, [facility] [place] [facility] [address] [id number] [place] [address] Jan, [facility] [place] [facility] [address] [id number] [place] [address] Dec, [facility] [place] [facility] [address] [id number] [place] [address] November, [facility] [place] [facility] [address] [id number] [place] [address] Sep, [facility] [place] [facility] [address] [id number] [place] [address] Aug, [facility] [place] [facility] [address] [id number] [place] [address] Aug, [facility] [place] [facility] [address] [id number] [place] [address] Jul, [facility] [place] [facility] [address] [id number] [place] [address] Jul, [facility] [place] [facility] [address] [id number] [place] [address] Jun, [facility] [place] [facility] [address] [id number] [place] [address] Jun, [facility] [place] [facility] [address] [id number] [place] [address] Jun, [facility] [place] [facility] [address] [id number] [place] [address] Jun, [facility] [place] [facility] [address] [id number] [place] [address] Jun, [facility] [place] [facility] [address] [id number] [place] [address] Jun, [facility] [place] [facility] [address] [id number] [place] [address] May, [facility] [place] [facility] [address] [id number] [place] [address] May, [facility] [place] [facility] [address] [id number] [place] [address] May, [facility] [place] [facility] [address] [id number] [place] [address] May, [facility] [place] [facility] [address] [id number] [place] [address] May, [facility] [place] [facility] [address] [id number] [place] [address] May, [facility] [place] [facility] [address] [id number], [place] [address] 15 May, 2012 [facility] [place] [facility] [address] [id number] [place] [address] 15 May, 2012 [facility] [place] [facility] [address] [id number], [place] [address] 14 May, 2012 [facility] [place] [facility] [address] [facility] [id number] [place] [address] 14 May, 2012 [facility] [place] [facility] [address] [id number], [place] [address] 12 May, 2012 [facility] [place] [facility] [address] [id number] [place] [address] 12 May, 2012 [facility] [place] [facility] [address] [id number], [place] [address] 10 May, 2012 [facility] [place] [facility] [address] [id number], [place] [address] May, [facility] [place] [facility] [address] [id number], [place] [address] 08 May, 2012 [facility] [place] [facility] [address] [id number], [place] [address] Apr, [facility] [place] [facility] [address] [id number], [place] [address] Apr, [facility] [place] [facility] [address] [id number], [place] [address] Apr, [facility] [place] [facility] [address] [id number], [place] [address] Apr, [facility] [place] [facility] [address] [id number] [place] [address] Apr, [facility] [place] [facility] [address] [facility] [id number], [place] [address] Apr, [facility] [place] [facility] [address] [facility] [id number], [place] [address] Apr, [facility] [place] [facility] [address] [id number] [place] [address] Apr, [facility] [address] [id number] [place] [address] Apr, [facility] [place] [facility] [address] [id number] [place] [address] 08 Apr, 2012 [facility] [address] [id number] [place] [address] 25 Mar, 2012 [facility] [place] [facility] [address] [id number] [place] [address]- [address] 24 Mar, 2012 [facility] [address] [id number] [place] [address] 14 Mar, 2012 [facility] [address] [id number] [place] [address] 04 Mar, 2012 [facility] [address] [id number] [place] [address] Feb, [facility] [address] [id number] [place] [address] Feb, [facility] [address] [id number] [place] [address] 15 Feb, 2012 [facility] [address] [id number] [place] [address] 14 Feb, 2012 [facility] [place] [facility] [address] [id number] [place] [address] Feb, [facility] [address] [id number] [place] [address] November, [facility] [place] [facility] [address] [id number] [place] [address] Aug, [facility] [place] [facility] [address] [id number] [place] [address] May, [facility] [place] [facility] [address] [id number] [place] [address] May, [facility] [address] [facility] [id number] [place] [address] Apr, [facility] [address] [facility] [id number] [place] [address] Mar, IMMUNIZATIONS Vaccine Route Administration Date Status HUMIRA (PT'S OWN) IM Intramuscular December 22, 2017 Administered SOCIAL HISTORY Never Assessed REASON FOR VISIT Injection - SIMRAN Arguello PLAN OF CARE VITAL SIGNS MEDICATIONS Unknown Medications RESULTS No Results PROCEDURES Procedure Date Ordered Result Body Site HUMIRA (PT'S OWN) December 22, 2017 THER/PROPH/DIAG INJ, SC/IM December 22, 2017 INSTRUCTIONS MEDICATIONS ADMINISTERED No Known Medications [...] Hospitalization History Resp distress with hypoxia, pulmonary fibrosis-[facility] 08/03/16 Hospitalization History Shortness of breath 04/2017
--- OUTSIDE RECORDS SUMMARY | 2018-09-03 14:50 | XMS REPORT ---
Author Author GENEVIEVE JOSE F [facility] Address [address] [place] [address] Care Team Providers Care Sales Project Engineer Name Role Phone GENEVIEVECINDY LEMAY Unavailable PROBLEMS Type Condition ICD9-CM Code [id number] Code Onset Dates Condition Status SNOMED Code Problem Psoriasis L40.9 Active 1695916 Problem Rheumatoid arthritis involving multiple sites with positive rheumatoid factor M05.79 Active 102540899 Problem Vision loss, left eye H54.62 Active 56138435 Problem Primary insomnia F51.01 Active 5533906 Problem Other elevated white blood cell (WBC) count D72.828 Active 507331076 Problem Essential hypertension I10 Active 39948542 Problem Hematochezia K92.1 Active 915532898 Problem Type 2 diabetes mellitus with hyperglycemia, without long-term current use of insulin E11.65 Active 46406401 Problem Tobacco use Z72.0 Active 425286668 Problem Renal cyst, right N28.1 Active 72355599 Problem Idiopathic pulmonary fibrosis J84.112 Active 156165833 Problem Chronic obstructive pulmonary disease, unspecified J44.9 Active 97631303 Problem Lactic acidosis E87.2 Active 80334659 Problem Hyperlipidemia E78.5 Active 44237995 ALLERGIES No Information ENCOUNTERS Encounter Location Date Diagnosis [place] [address] [address] Mar, [place] [id number] [place] [address] 06282- 3541 Feb, [place] [address] [place] [id number] [place] [address] 35322- 4611 Jan, Rheumatoid arthritis involving multiple sites with positive rheumatoid factor M05.79 and Psoriasis L40.9 [place] [address] [place] [id number] [place] [address] 17179- 8925 Jan, [place] [address] [address] 9271 November, [place] [address], [place] [address] 4092 November, Rheumatoid arthritis involving multiple sites with positive rheumatoid factor M05.79 [place] [address], [place] [address] 4209 November, Rheumatoid arthritis involving multiple sites with positive rheumatoid factor M05.79 [place] [address] [place] [address] 09151- 1138 November, Rheumatoid arthritis involving multiple sites with positive rheumatoid factor M05.79 [place] [address] [place] [id number] [place] [address] 74517- 6723 Oct, Rheumatoid arthritis involving multiple sites with positive rheumatoid factor M05.79 [place] [address], [place] [address] 3235 Oct, [place] [address], [place] [address] 9456 Oct, Rheumatoid arthritis involving multiple sites with positive rheumatoid factor M05.79 [place] [address] [place] [address] 46401- 9225 Oct, Rheumatoid arthritis involving multiple sites with positive rheumatoid factor M05.79 ; Type 2 diabetes mellitus with hyperglycemia, without long-term current use of insulin E11.65 ; Hyperlipidemia E78.5 and Other elevated white blood cell (WBC) count D72.828 [place] [address] [id number], [place] [address] 3917 Oct, Chronic obstructive pulmonary disease, unspecified J44.9 [place] [address], [place] [address] 6368 Oct, Rheumatoid arthritis involving multiple sites with positive rheumatoid factor M05.79 [place] [address] [place] [id number], [place] [address] 6987 Oct, Type 2 diabetes mellitus with hyperglycemia, without long- term current use of insulin E11.65 [place] [address] [place] [address] [id number] [place] [address] 32526- 1884 Sep, [place] [address] [place] [address] [id number] [place] [address] 92589- 5127 Sep, Rheumatoid arthritis involving multiple sites with positive rheumatoid factor M05.79 ; Visit for TB skin test Z11.1 and Psoriasis L40.9 [place] [address] [address]17- 8609 Sep, Type 2 diabetes mellitus with hyperglycemia, without long- term current use of insulin E11.65 ; Rheumatoid arthritis involving multiple sites with positive rheumatoid factor M05.79 ; Hyperlipidemia E78.5 ; Essential hypertension I10 ; Other elevated white blood cell (WBC) count D72.828 ; Primary insomnia F51.01 and Tobacco use Z72.0 [place] [address] [place] [address] [id number] [place] [address] 44017- 7022 Sep, [place] [address] [place] [address] [id number] [place] [address] 87620- 2431 Aug, Type 2 diabetes mellitus with hyperglycemia, without long- term current use of insulin E11.65 and Hyperlipidemia E78.5 [place] [address] [place] [address] [id number] [place] [address] 63343- 8908 Jul, [place] [address] [place] [id number] [place] [address] 25432- 7937 Jul, Rheumatoid arthritis involving multiple sites with positive rheumatoid factor M05.79 [place] [address] [place] [address] [id number] [place] [address] 93213- 0230 Jul, Rheumatoid arthritis involving multiple sites with positive rheumatoid factor M05.79 [place] [address] [place] [id number] [place] [address] 04098- 9849 Jun, Essential hypertension I10 and Hyperlipidemia E78.5 [place] [address] [place] [id number] [place] [address] 48977- 7955 Jun, Chronic obstructive pulmonary disease, unspecified J44.9 [facility] [address], [place] [address]- 5968 Jun, [facility] [address] [id number] [place] [address] 45358- 6136 May, Type 2 diabetes mellitus without complication E11.9 ; Rheumatoid arthritis involving multiple sites with positive rheumatoid factor M05.79 ; Psoriasis L40.9 and Essential hypertension I10 [facility] [address] [place] [address] [id number] May, Dental examination Z01.20 and Dental caries K02.9 [facility] [address] [id number] [place] [address] 22662- 8605 Apr, Type 2 diabetes mellitus without complication E11.9 ; Type 2 diabetes mellitus with hyperglycemia, without long-term current use of insulin E11.65 ; Idiopathic pulmonary fibrosis J84.112 ; Essential hypertension I10 ; Tobacco use Z72.0 ; Rheumatoid arthritis involving multiple sites with positive rheumatoid factor M05.79 ; Hyperlipidemia E78.5 and Chronic obstructive pulmonary disease, unspecified J44.9 [facility] [address] [place] [address] 83479- 7337 Apr, Dental examination Z01.20 [facility] [address] [place] [address] 57234- 6679 Apr, [facility] [address], [place] [address]- 4526 Apr, [facility] [address] [place] [address] 92945- 5530 Apr, [facility] [address] [place] [address] 16341- 1709 Apr, [facility] [address] [place] [address] [id number] [place] [address] 09109- 5829 Apr, [facility] [address] [place] [address] 88946- 2635 Apr, Type 2 diabetes mellitus without complication E11.9 and Essential hypertension I10 [place] [id number], [place] [address]- 3520 Mar, [facility] [address] [id number] [place] [address] 06194- 4386 Mar, Rheumatoid arthritis involving multiple sites with positive rheumatoid factor M05.79 [facility] [address] [place] [address] 64588- 7446 Mar, Type 2 diabetes mellitus without complication E11.9 ; Essential hypertension I10 and Hyperlipidemia E78.5 [facility] [address] [place] [address] 47625- 3110 Mar, Rheumatoid arthritis involving multiple sites with positive rheumatoid factor M05.79 [facility] [address] [place] [id number] [place] [address] 43037- 8842 Mar, [facility] [address] [place] [id number] [place] [address] 45623- 7823 Mar, Hyperlipidemia E78.5 ; Essential hypertension I10 and Type 2 diabetes mellitus without complication E11.9 [facility] [address] [place] [address] 99303- 7963 Feb, Rheumatoid arthritis involving multiple sites with positive rheumatoid factor M05.79 and Essential hypertension I10 [facility] [address] [place] [address] 01537- 4391 Jan, Rheumatoid arthritis involving multiple sites with positive rheumatoid factor M05.79 [facility] [address] [place] [address] 69608- 4356 Dec, Rheumatoid arthritis involving multiple sites with positive rheumatoid factor M05.79 [facility] [address] [place] [address] 54336- 5566 Dec, [facility] [address] [place] [address] [id number]- 5016 November, Rheumatoid arthritis involving multiple sites with positive rheumatoid factor M05.79 and Psoriasis L40.9 [facility] [address] [id number] [place] [address] 12582- 0362 November, Hyperlipidemia E78.5 [place] [address] [place] [id number] [place] [address] 07282- 0773 November, Type 2 diabetes mellitus without complication E11.9 [place] [address] [place] [id number] [place] [address] 94727- 5623 November, [place] [address] [place] [id number] [place] [address] 64827- 2421 November, Rheumatoid arthritis involving multiple sites with positive rheumatoid factor M05.79 ; Hyperlipidemia E78.5 ; Type 2 diabetes mellitus without complication E11.9 ; Idiopathic pulmonary fibrosis J84.112 and Tobacco use Z72.0 [place] [address] 29641- 8181 Oct, Essential hypertension I10 and Rheumatoid arthritis involving multiple sites with positive rheumatoid factor M05.79 [place] [address] 41342- 3938 Sep, Rheumatoid arthritis involving multiple sites with positive rheumatoid factor M05.79 and Psoriasis L40.9 [place] [address] [place] [id number] [place] [address] 18840- 8653 Jul, Rheumatoid arthritis involving multiple sites with positive rheumatoid factor M05.79 [place] [address] [place] [id number] [place] [address] 67875- 7963 Jul, Idiopathic pulmonary fibrosis J84.112 [place] [address] [place] [id number] [place] [address] [id number] Jul, [place] [address] [place] [id number] [place] [address] 09702- 1456 Jul, Idiopathic pulmonary fibrosis J84.112 [place] [address] [place] [id number] [place] [address] 77525- 6807 Jul, Idiopathic pulmonary fibrosis J84.112 and Hypoxia R09.02 [place] [address] [place] [id number] [place] [address] 78935- 4661 Jul, Cough R05 and Idiopathic pulmonary fibrosis J84.112 [place] [address] [place] [id number] [place] [address] 97214- 3592 Apr, Type 2 diabetes mellitus without complication E11.9 ; Rheumatoid arthritis involving multiple sites with positive rheumatoid factor M05.79 ; Psoriasis L40.9 ; Hyperlipidemia E78.5 ; Idiopathic pulmonary fibrosis J84.112 and Essential hypertension I10 [place] [address] [place] [id number] [place] [address] 11494- 9257 Feb, [place] [address] 16453- 6293 Feb, [place] [address] 77049- 2092 Dec, Right ankle gives way M25.371 [place] [address] [place] [id number] [place] [address] 45485- 8307 November, [place] [address] 55381- 1410 November, Wrist pain, left M25.532 [place] [address] [place] [id number] [place] [address] 59768- 8495 Sep, Psoriasis L40.9 [place] [address] [place] [id number] [place] [address] 10293- 5819 Sep, COPD exacerbation J44.1 [place] [address] [place] [id number] [place] [address] 70394- 0335 Aug, [place] [address] [place] [id number] [place] [address] 87052- 8860 Aug, Rheumatoid arthritis involving multiple sites with positive rheumatoid factor M05.79 and Hyperlipidemia E78.5 [place] [address] [place] [id number] [place] [address] 33402- 9088 Aug, [place] [address] [place] [id number] [place] [address] 06314- 2456 Aug, Psoriasis L40.9 ; Rheumatoid arthritis involving multiple sites with positive rheumatoid factor M05.79 and Essential hypertension I10 [facility] [address], [place] [address]- 7506 Jul, [facility] [address] [place] [address] 88643- 1817 Jul, [facility] [address], [place] [address]- 4131 Jul, Type 2 diabetes mellitus without complication E11.9 ; Hyperlipidemia E78.5 and Rheumatoid arthritis involving multiple sites with positive rheumatoid factor M05.79 [facility] [address], [place] [address]- 8753 Jun, [facility] [address] [place] [id number] [place] [address] 07262- 0815 Apr, [facility] [address] [place] [id number] [place] [address] 44415- 9285 Mar, [facility] [address] [place] [id number] [place] [address] 14521- 6923 Mar, [facility] [address], [place] [address]- 4981 Mar, Rheumatoid arthritis 714.0 ; Other psoriasis 696.1 and Cellulitis, axillary fold 682.3 [facility] [address], [place] [address]- 4520 Jan, [facility] [address] [place] [address] 55257- 2827 Dec, [facility] [address], [place] [address]- 8034 Dec, Other and unspecified hyperlipidemia 272.4 ; Other psoriasis 696.1 and Diabetes mellitus without mention of complication, type II or unspecified type, not stated as uncontrolled 250.00 [facility] [address], [place] [address]- 6000 Dec, [facility] [address] [place] [id number] [place] [address], [place] [address]- 2026 November, [facility] [place] [facility] [address] [id number] [place] [address]- 0319 14 Oct, 2014 [facility] [place] [facility] [address] [id number] [place] [address]- 0349 13 Oct, 2014 [facility] [place] [facility] [address] [id number] [place] [address]- 8252 24 Sep, 2014 [facility] [place] [facility] [address] [id number] [place] [address]- 5311 24 Sep, 2014 [facility] [place] [facility] [address] [id number] [place] [address]- 1640 Sep, [facility] [place] [facility] [address] [id number] [place] [address]- 9191 Sep, [facility] [place] [facility] [address] [id number] [place] [address]- 5305 Sep, [facility] [place] [facility] [address] [id number] [place] [address]- 3191 Sep, [facility] [place] [facility] [address] [id number] [place] [address]- 5895 Sep, [facility] [place] [facility] [address] [id number] [place] [address]- 8422 Sep, [facility] [place] [facility] [address] [id number] [place] [address]- 2347 Sep, [facility] [place] [facility] [address] [id number] [place] [address]- 2547 Sep, [facility] [place] [facility] [address] [id number] [place] [address]- 7039 Jul, [facility] [place] [facility] [address] [id number] [place] [address]- 8196 Jul, [facility] [place] [facility] [address] [id number] [place] [address]- 2598 16 Jul, 2014 [facility] [place] [facility] [address] [id number] [place] [address]- 1697 16 Jul, 2014 [facility] [place] [facility] [address] [id number] [place] [address]- 7414 15 Jul, 2014 [facility] [place] [facility] [address] [id number] [place] [address]- 5053 15 Jul, 2014 [facility] [place] [facility] [address] [id number] [place] [address]- 3573 13 Jul, 2014 [facility] [place] [facility] [address] [id number] [place] [address]- 3854 13 Jul, 2014 [facility] [place] [facility] [address] [id number] [place] [address]- 9676 Jun, [facility] [place] [facility] [address] [id number] [place] [address]- 2657 Jun, [facility] [place] [facility] [address] [id number] [place] [address]- 3884 Jun, [facility] [place] [facility] [address] [id number] [place] [address]- 9320 Jun, [facility] [place] [facility] [address] [id number] [place] [address]- 9485 Jun, [facility] [place] [facility] [address] [id number] [place] [address]- 8776 Jun, [facility] [place] [facility] [address] [id number] [place] [address]- 7335 Apr, [facility] [place] [facility] [address] [id number] [place] [address]- 6810 Apr, [facility] [place] [facility] [address] [id number] [place] [address]- 7574 Mar, [facility] [place] [facility] [address] [id number] [place] [address]- 1218 08 Mar, 2014 [facility] [place] [facility] [address] [id number] [place] [address]- 7223 Feb, [facility] [place] [facility] [address] [id number] [place] 8148 Feb, [facility] [place] [facility] [address] [id number] [place] [address]- 7404 Jan, [facility] [place] [facility] [address] [id number] [place] 1627 Jan, [facility] [place] [facility] [address] [id number] [place] [address]- 6837 Jan, [facility] [place] [facility] [address] [id number] [place] [address]- 4947 Jan, [facility] [place] [facility] [address] [id number] [place] [address]- 0015 Jan, [facility] [place] [facility] [address] [id number] [place] [address]- 4968 Dec, [facility] [place] [facility] [address] [id number] [place] [address]- 4995 Dec, [facility] [place] [facility] [address] [id number] [place] [address]- 3571 Dec, [facility] [place] [facility] [address] [id number] [place] [address]- 3153 Dec, [facility] [place] [facility] [address] [id number] [place] [address]- 8172 November, [facility] [place] [facility] [address] [id number] [place] [address]- 6942 November, [facility] [place] [facility] [address] [id number] [place] [address]- 4835 Oct, [facility] [place] [facility] [address] [id number] [place] [address]- 2773 Oct, [facility] [place] [facility] [address] [id number] [place] [address]- 3536 Sep, [facility] [place] [facility] [address] [id number] [place] [address]- 9509 Sep, [facility] [place] [facility] [address] [id number] [place] [address]- 2354 Sep, [facility] [place] [facility] [address] [id number] [place] [address]- 9826 Sep, [facility] [place] [facility] [address] [id number] [place] [address]- 6474 Aug, [facility] [place] [facility] [address] [id number] [place] [address]- 6220 Aug, [facility] [place] [facility] [address] [id number] [place] [address]- 1446 Aug, [facility] [place] [facility] [address] [id number] [place] [address]- 0302 Aug, [facility] [place] [facility] [address] [id number] [place] [address]- 3761 Aug, [facility] [place] [facility] [address] [id number] [place] [address]- 1914 Aug, [facility] [place] [facility] [address] [id number] [place] [address]- 8860 Jul, [facility] [place] [facility] [address] [id number] [place] [address]- 7193 Jul, [facility] [place] [facility] [address] [id number] [place] [address]- 7240 Jul, [facility] [place] [facility] [address] [id number] [place] [address]- 2035 Jul, [facility] [place] [facility] [address] [id number] [place] [address]- 5131 Jul, [facility] [place] [facility] [address] [id number] [place] [address]- 1286 Jul, [facility] [place] [facility] [address] [id number] [place] [address]- 3486 Jul, [facility] [place] [facility] [address] [id number] [place] [address]- 6036 Jul, [facility] [place] [facility] [address] [id number] [place] [address]- 9549 Jun, [facility] [place] [facility] [address] [id number] [place] [address]- 1832 Jun, [facility] [place] [facility] [address] [id number] [place] [address]- 0505 Jun, [facility] [place] [facility] [address] [id number] [place] [address]- 9239 Jun, [facility] [place] [facility] [address] [id number] [place] [address]- 3495 Jun, [facility] [place] [facility] [address] [id number] [place] [address]- 5694 Jun, [facility] [place] [facility] [address] [id number], [place] [address]- 7174 May, [facility] [place] [facility] [address] [id number] [place] [address]- 9883 May, [facility] [place] [facility] [address] [id number], [place] [address]- 8182 May, [facility] [place] [facility] [address] [id number], [place] [address]- 5941 May, [facility] [place] [facility] [address] [id number], [place] [address]- 8321 Apr, [facility] [place] [facility] [address] [id number] [place] [address]- 2420 Apr, [facility] [place] [facility] [address] [id number], [place] [address]- 3415 Apr, [facility] [place] [facility] [address] [id number], [place] [address]- 0846 Apr, [facility] [place] [facility] [address] [id number] [place] [address]- 6901 25 Mar, 2013 [facility] [address] [id number] [place] [address]- 4916 23 Mar, 2013 [facility] [place] [facility] [address] [id number] [place] [address] 16 Mar, 2013 [facility] [address] [id number] [place] [address] 12 Mar, 2013 [facility] [place] [facility] [address] [id number] [place] [address] 09 Mar, 2013 [facility] [address] [id number] [place] [address] 04 Mar, 2013 [facility] [place] [facility] [address] [id number] [place] [address] Feb, [facility] [address] [id number] [place] [address] Feb, [facility] [address] [id number] [place] [address] Feb, [facility] [place] [facility] [address] [id number] [place] [address] Feb, [facility] [address] [id number] [place] [address] Jan, [facility] [place] [facility] [address] [id number] [place] [address] Dec, [facility] [place] [facility] [address] [id number] [place] [address] November, [facility] [place] [facility] [address] [id number] [place] [address] Sep, [facility] [place] [facility] [address] [id number] [place] [address] Aug, [facility] [place] [facility] [address] [id number] [place] [address] Aug, [facility] [place] [facility] [address] [id number] [place] [address] Jul, [facility] [place] [facility] [address] [id number] [place] [address] Jul, [facility] [place] [facility] [address] [id number] [place] [address] Jun, [facility] [place] [facility] [address] [id number] [place] [address] Jun, [facility] [place] [facility] [address] [id number] [place] [address] Jun, [facility] [place] [facility] [address] [id number] [place] [address] Jun, [facility] [place] [facility] [address] [id number] [place] [address] Jun, [facility] [place] [facility] [address] [id number] [place] [address] Jun, [facility] [place] [facility] [address] [id number] [place] [address] May, [facility] [place] [facility] [address] [id number] [place] [address] 29 May, 2012 [facility] [place] [facility] [address] [id number] [place] [address] May, [facility] [place] [facility] [address] [id number] [place] [address] May, [facility] [place] [facility] [address] [id number] [place] [address] May, [facility] [place] [facility] [address] [id number] [place] [address] May, [facility] [place] [facility] [address] [id number] [place] [address] 15 May, 2012 [facility] [place] [facility] [address] [id number], [place] [address] 15 May, 2012 [facility] [place] [facility] [address] [id number] [place] [address] 14 May, 2012 [facility] [place] [facility] [address] [id number], [place] [address] 14 May, 2012 [facility] [place] [facility] [address] [id number] [place] [address] May, [facility] [place] [facility] [address] [id number] [place] [address] 12 May, 2012 [facility] [place] [facility] [address] [id number] [place] [address] May, [facility] [place] [facility] [address] [id number] [place] [address] 10 May, 2012 [facility] [place] [facility] [address] [facility] [id number] [place] [address] May, [facility] [place] [facility] [address] [id number] [place] [address] Apr, [facility] [place] [facility] [address] [id number] [place] [address] 24 Apr, 2012 [facility] [place] [facility] [address] [id number] [place] [address] 24 Apr, 2012 [facility] [place] [facility] [address] [id number], [place] [address] Apr, [facility] [place] [facility] [address] [id number], [place] [address] Apr, [facility] [place] [facility] [address] [id number] [place] [address] Apr, [facility] [place] [facility] [address] [facility] [id number] [place] [address] Apr, [facility] [place] [facility] [address] [facility] [id number] [place] [address] Apr, [facility] [place] [facility] [address] [id number] [place] [address] Apr, [facility] [place] [facility] [address] [id number] [place] [address] 08 Apr, 2012 [facility] [place] [facility] [address] [id number] [place] [address] Mar, [facility] [place] [facility] [address] [id number] [place] [address] 24 Mar, 2012 [facility] [place] [facility] [address] [id number] [place] [address] 14 Mar, 2012 [facility] [place] [facility] [address] [id number] [place] [address] 04 Mar, 2012 [facility] [place] [facility] [address] [id number] [place] [address] Feb, [facility] [place] [facility] [address] [id number] [place] [address] Feb, [facility] [place] [facility] [address] [id number] [place] [address] 15 Feb, 2012 [facility] [place] [facility] [address] [id number] [place] [address] Feb, [facility] [place] [facility] [address] [id number] [place] [address] Feb, [facility] [place] [facility] [address] [id number] [place] [address] November, [facility] [place] [facility] [address] [id number] [place] [address] Aug, [facility] [place] [facility] [address] [id number] [place] [address] May, [facility] [place] [facility] [address] [id number] [place] [address] May, [facility] [place] [facility] [address] [id number] [place] [address] Apr, [facility] [address] [facility] [id number] [place] [address] Mar, IMMUNIZATIONS No Known Immunizations SOCIAL HISTORY [...] Hospitalization History Resp distress with hypoxia, pulmonary fibrosis-[facility] 08/03/16 Hospitalization History Shortness of breath 04/2017
--- OUTSIDE RECORDS SUMMARY | 2018-09-03 14:51 | XMS REPORT ---
Author Author GENEVIEVE JOSE F [facility] Address [address] [place] [address] Care Team Providers Care Profile Shaper Operator Name Role Phone GENEVIEVECINDY LEMAY Unavailable PROBLEMS Type Condition ICD9-CM Code RBP44-CL Code Onset Dates Condition Status SNOMED Code Problem Psoriasis L40.9 Active 0036413 Problem Rheumatoid arthritis involving multiple sites with positive rheumatoid factor M05.79 Active 098662529 Problem Vision loss, left eye H54.62 Active 65006749 Problem Primary insomnia F51.01 Active 6474417 Problem Other elevated white blood cell (WBC) count D72.828 Active 113550933 Problem Essential hypertension I10 Active 65083567 Problem Hematochezia K92.1 Active 510496102 Problem Type 2 diabetes mellitus with hyperglycemia, without long-term current use of insulin E11.65 Active 42303698 Problem Tobacco use Z72.0 Active 341533533 Problem Renal cyst, right N28.1 Active 45814680 Problem Idiopathic pulmonary fibrosis J84.112 Active 152434184 Problem Chronic obstructive pulmonary disease, unspecified J44.9 Active 73528227 Problem Lactic acidosis E87.2 Active 37082591 Problem Hyperlipidemia E78.5 Active 83185585 ALLERGIES No Information ENCOUNTERS Encounter Location Date Diagnosis [facility] [id number], [place] [address] Mar, [facility] [address], [place] [address] Mar, [facility] [address] [place] [address] 5[address]12- 4377 Feb, [facility] [id number], [place] [address] Jan, Rheumatoid arthritis involving multiple sites with positive rheumatoid factor M05.79 and Psoriasis L40.9 [facility] [id number], [place] [address] Jan, [facility] [address], [place] [address] November, [facility] [address], [place] [address] 7193 November, Rheumatoid arthritis involving multiple sites with positive rheumatoid factor M05.79 [facility] [address], [place] [address] 2233 November, Rheumatoid arthritis involving multiple sites with positive rheumatoid factor M05.79 [facility] [address], [place] [address] 7461 November, Rheumatoid arthritis involving multiple sites with positive rheumatoid factor M05.79 [facility] [address], [place] [address] 5513 Oct, Rheumatoid arthritis involving multiple sites with positive rheumatoid factor M05.79 [facility] [address], [place] [address] Oct, [facility] [address], [place] [address] 9520 Oct, Rheumatoid arthritis involving multiple sites with positive rheumatoid factor M05.79 [facility] [address], [place] [address] 9553 Oct, Rheumatoid arthritis involving multiple sites with positive rheumatoid factor M05.79 ; Type 2 diabetes mellitus with hyperglycemia, without long-term current use of insulin E11.65 ; Hyperlipidemia E78.5 and Other elevated white blood cell (WBC) count D72.828 [facility] [address], [place] [address] Oct, Chronic obstructive pulmonary disease, unspecified J44.9 [facility] [address], [place] [address] 4977 Oct, Rheumatoid arthritis involving multiple sites with positive rheumatoid factor M05.79 [facility] [address], [place] [address] 87[address] Oct, Type 2 diabetes mellitus with hyperglycemia, without long- term current use of insulin E11.65 [facility] [id number] [place] [address] 20875- 6096 Sep, [facility] [id number] [place] [address] 70984- 1922 Sep, Visit for TB skin test Z11.1 ; Rheumatoid arthritis involving multiple sites with positive rheumatoid factor M05.79 and Psoriasis L40.9 [facility] [address] [place] [address] 55497- 9450 Sep, Type 2 diabetes mellitus with hyperglycemia, without long- term current use of insulin E11.65 ; Rheumatoid arthritis involving multiple sites with positive rheumatoid factor M05.79 ; Hyperlipidemia E78.5 ; Essential hypertension I10 ; Other elevated white blood cell (WBC) count D72.828 ; Primary insomnia F51.01 and Tobacco use Z72.0 [facility] [address] [place] [address] 99797- 1601 Sep, [facility] [id number] [place] [address] 56265- 6981 Aug, Type 2 diabetes mellitus with hyperglycemia, without long- term current use of insulin E11.65 and Hyperlipidemia E78.5 [facility] [address], [place] [address]- 7852 Jul, [facility] [address] [place] [address] 45849- 6042 Jul, Rheumatoid arthritis involving multiple sites with positive rheumatoid factor M05.79 [facility] [id number] [place] [address] 39299- 8145 Jul, Rheumatoid arthritis involving multiple sites with positive rheumatoid factor M05.79 [facility] [address], [place] [address]- 8309 Jun, Essential hypertension I10 and Hyperlipidemia E78.5 [facility] [address], [place] [address]- 0869 Jun, Chronic obstructive pulmonary disease, unspecified J44.9 [facility] [address] [place] [address] 71119- 0398 Jun, [facility] [address], [place] [address]- 9506 May, Type 2 diabetes mellitus without complication E11.9 ; Rheumatoid arthritis involving multiple sites with positive rheumatoid factor M05.79 ; Psoriasis L40.9 and Essential hypertension I10 [facility] [address] [address] May, Dental examination Z01.20 and Dental caries K02.9 [facility] [address], [place] [address]- 9524 Apr, Type 2 diabetes mellitus without complication E11.9 ; Type 2 diabetes mellitus with hyperglycemia, without long-term current use of insulin E11.65 ; Idiopathic pulmonary fibrosis J84.112 ; Essential hypertension I10 ; Tobacco use Z72.0 ; Rheumatoid arthritis involving multiple sites with positive rheumatoid factor M05.79 ; Hyperlipidemia E78.5 and Chronic obstructive pulmonary disease, unspecified J44.9 [facility] [address] [place] [address] 91240- 6014 Apr, Dental examination Z01.20 [facility] [address], [place] [address]- 1016 Apr, [facility] [address], [place] [address]- 8053 Apr, [facility] [address], [place] [address]- 2045 Apr, [facility] [address], [place] [address]- 1891 Apr, [facility] [address], [place] [address]- 4707 Apr, [facility] [id number] [place] [address] 77695- 3027 Apr, Type 2 diabetes mellitus without complication E11.9 and Essential hypertension I10 [facility] [id number] [place] [address] 22724- 8889 Mar, [facility] [id number] [place] [address] 75791- 4788 Mar, Rheumatoid arthritis involving multiple sites with positive rheumatoid factor M05.79 [facility] [id number] [place] [address] 67605- 9483 Mar, Type 2 diabetes mellitus without complication E11.9 ; Essential hypertension I10 and Hyperlipidemia E78.5 [facility] [address] [place] [address] 71840- 2383 Mar, Rheumatoid arthritis involving multiple sites with positive rheumatoid factor M05.79 [facility] [address] [place] [address] 52833- 9774 Mar, [facility] [id number] [place] [address] 91234- 0636 Mar, Hyperlipidemia E78.5 ; Essential hypertension I10 and Type 2 diabetes mellitus without complication E11.9 [facility] [address] [place] [address] 93658- 9591 Feb, Rheumatoid arthritis involving multiple sites with positive rheumatoid factor M05.79 and Essential hypertension I10 [facility] [address], [place] [address]- 0217 Jan, Rheumatoid arthritis involving multiple sites with positive rheumatoid factor M05.79 [facility] [address], [place] [address]- 3335 Dec, Rheumatoid arthritis involving multiple sites with positive rheumatoid factor M05.79 [facility] [address] [place] [address] 98700- 2481 Dec, [facility] [address] [place] [address] 23253- 6580 November, Rheumatoid arthritis involving multiple sites with positive rheumatoid factor M05.79 and Psoriasis L40.9 [facility] [address], [place] [address]- 3883 November, Hyperlipidemia E78.5 [facility] [address] [place] [address] 38201- 6242 November, Type 2 diabetes mellitus without complication E11.9 [facility] [id number] [place] [address] 75334- 3509 November, [facility] [address] [place] [address] 76228- 8097 November, Rheumatoid arthritis involving multiple sites with positive rheumatoid factor M05.79 ; Hyperlipidemia E78.5 ; Type 2 diabetes mellitus without complication E11.9 ; Idiopathic pulmonary fibrosis J84.112 and Tobacco use Z72.0 [facility] [address] [place] [address] 46283- 5576 Oct, Essential hypertension I10 and Rheumatoid arthritis involving multiple sites with positive rheumatoid factor M05.79 [facility] [address] [place] [address] 04215- 9457 Sep, Rheumatoid arthritis involving multiple sites with positive rheumatoid factor M05.79 and Psoriasis L40.9 [facility] [address] [place] [address] 16833- 7875 Jul, Rheumatoid arthritis involving multiple sites with positive rheumatoid factor M05.79 [facility] [address] [place] [address] 60858- 4154 Jul, Idiopathic pulmonary fibrosis J84.112 [facility] [id number] [place] [address] [id number] Jul, [facility] [address] [place] [address] 96030- 9126 Jul, Idiopathic pulmonary fibrosis J84.112 [facility] [address] [place] [address] 70656- 6063 Jul, Idiopathic pulmonary fibrosis J84.112 and Hypoxia R09.[address] [place] [address] 94355- 1182 Jul, Cough R05 and Idiopathic pulmonary fibrosis J84.112 [facility] [address] [place] [address] 18714- 9063 Apr, Type 2 diabetes mellitus without complication E11.9 ; Rheumatoid arthritis involving multiple sites with positive rheumatoid factor M05.79 ; Psoriasis L40.9 ; Hyperlipidemia E78.5 ; Idiopathic pulmonary fibrosis J84.112 and Essential hypertension I10 [facility] [id number] [place] [address] 22382- 2640 Feb, [facility] [address] 47[address]- 5934 Feb, [facility] [address] [place] [address] 74636- 4745 Dec, Right ankle gives way M25.371 [facility] [address] [place] [address] 08527- 4820 November, [facility] [address] [place] [address] 40543- 9627 November, Wrist pain, left M25.532 [facility] [id number] [place] [address] 55202- 7156 Sep, Psoriasis L40.9 [facility] [id number] [place] [address] 78503- 2572 Sep, COPD exacerbation J44.1 [facility] [address] [place] [address] 79282- 3552 Aug, [facility] [id number] [place] [address] 01129- 4632 Aug, Rheumatoid arthritis involving multiple sites with positive rheumatoid factor M05.79 and Hyperlipidemia E78.5 [facility] [address] [place] [address] 08006- 4038 Aug, [facility] [address] [place] [address]- 1753 Aug, Psoriasis L40.9 ; Rheumatoid arthritis involving multiple sites with positive rheumatoid factor M05.79 and Essential hypertension I10 [facility] [id number] [place] [address] 24889- 7285 Jul, [facility] [id number] [place] [address] 85070- 5772 Jul, [facility] [id number] [place] [address] 96646- 6820 Jul, Type 2 diabetes mellitus without complication E11.9 ; Hyperlipidemia E78.5 and Rheumatoid arthritis involving multiple sites with positive rheumatoid factor M05.79 [facility] [id number] [place] [address] 00786- 5809 Jun, [facility] [id number] [place] [address] 27663- 3097 Apr, [facility] [id number] [place] [address] 27021- 1056 Mar, [facility] [id number] [place] [address] 98334- 7137 Mar, [facility] [id number] [place] [address] 28380- 7390 Mar, Rheumatoid arthritis 714.0 ; Other psoriasis 696.1 and Cellulitis, axillary fold 682.3 [facility] [address] [place] [address] 35658- 5219 Jan, [facility] [address] [place] [address] 17926- 8627 Dec, [facility] [id number] [place] [address] 48576- 2211 Dec, Other and unspecified hyperlipidemia 272.4 ; Other psoriasis 696.1 and Diabetes mellitus without mention of complication, type II or unspecified type, not stated as uncontrolled 250.00 [facility] [id number] [place] [address], [place] [address]- 6622 04 Dec, 2014 [facility] [place] [facility] [address] [id number] [place] [address]- 5858 November, [facility] [place] [facility] [address] [id number] [place] [address]- 4904 Oct, [facility] [place] [facility] [address] [id number] [place] [address]- 5232 Oct, [facility] [place] [facility] [address] [id number] [place] [address]- 3664 24 Sep, 2014 [facility] [place] [facility] [address] [id number] [place] [address]- 8792 24 Sep, 2014 [facility] [place] [facility] [address] [id number] [place] [address]- 5525 Sep, [facility] [place] [facility] [address] [id number] [place] [address]- 1814 Sep, [facility] [place] [facility] [address] [id number] [place] [address]- 0998 Sep, [facility] [place] [facility] [address] [id number] [place] [address]- 3716 Sep, [facility] [place] [facility] [address] [id number] [place] [address]- 1365 Sep, [facility] [place] [facility] [address] [id number] [place] [address]- 8643 Sep, [facility] [place] [facility] [address] [id number] [place] [address]- 6714 Sep, [facility] [place] [facility] [address] [id number] [place] [address]- 3825 Sep, [facility] [place] [facility] [address] [id number] [place] [address]- 4880 Jul, [facility] [place] [facility] [address] [id number] [place] [address]- 8158 Jul, [facility] [place] [facility] [address] [id number] [place] [address]- 8684 16 Jul, 2014 [facility] [place] [facility] [address] [id number] [place] [address]- 6700 16 Jul, 2014 [facility] [place] [facility] [address] [id number] [place] [address]- 4974 15 Jul, 2014 [facility] [place] [facility] [address] [id number] [place] [address]- 4311 15 Jul, 2014 [facility] [place] [facility] [address] [id number] [place] [address]- 5101 13 Jul, 2014 [facility] [place] [facility] [address] [id number] [place] [address]- 4666 Jul, [facility] [place] [facility] [address] [id number] [place] [address]- 8189 Jun, [facility] [place] [facility] [address] [id number] [place] [address]- 9030 Jun, [facility] [place] [facility] [address] [id number] [place] [address]- 8886 Jun, [facility] [place] [facility] [address] [id number] [place] [address]- 1566 Jun, [facility] [place] [facility] [address] [id number] [place] [address]- 8587 Jun, [facility] [place] [facility] [address] [id number] [place] [address]- 1869 Jun, [facility] [place] [facility] [address] [id number] [place] [address]- 2481 Apr, [facility] [place] [facility] [address] [id number] [place] [address]- 3130 Apr, [facility] [place] [facility] [address] [id number] [place] [address]- 3548 08 Mar, 2014 [facility] [place] [facility] [address] [id number] [place] [address]- 9847 Mar, [facility] [place] [facility] [address] [id number] [place] [address]- 4337 Feb, [facility] [place] [facility] [address] [id number] [place] [address]- 7626 Feb, [facility] [place] [facility] [address] [id number] [place] [address]- 8562 Jan, [facility] [place] [facility] [address] [id number] [place] [address]- 8179 Jan, [facility] [place] [facility] [address] [id number] [place] [address]- 3680 Jan, [facility] [place] [facility] [address] [id number] [place] [address]- 4477 Jan, [facility] [place] [facility] [address] [id number] [place] [address]- 4835 Jan, [facility] [place] [facility] [address] [id number] [place] [address]- 1056 Dec, [facility] [place] [facility] [address] [id number] [place] [address]- 8178 Dec, [facility] [place] [facility] [address] [id number] [place] [address]- 1314 Dec, [facility] [place] [facility] [address] [id number] [place] [address]- 5558 Dec, [facility] [place] [facility] [address] [id number] [place] [address]- 0416 November, [facility] [place] [facility] [address] [id number] [place] [address]- 3251 November, [facility] [place] [facility] [address] [id number] [place] [address]- 3938 Oct, [facility] [place] [facility] [address] [id number] [place] [address]- 9979 Oct, [facility] [place] [facility] [address] [id number] [place] [address]- 8854 05 Sep, 2013 [facility] [place] [facility] [address] [id number] [place] [address]- 1313 Sep, [facility] [place] [facility] [address] [id number] [place] [address]- 9216 Sep, [facility] [place] [facility] [address] [id number] [place] [address]- 1716 Sep, [facility] [place] [facility] [address] [id number] [place] [address]- 5520 Aug, [facility] [place] [facility] [address] [id number] [place] [address]- 4985 Aug, [facility] [place] [facility] [address] [id number] [place] [address]- 0958 Aug, [facility] [place] [facility] [address] [id number] [place] [address]- 5379 Aug, [facility] [place] [facility] [address] [id number] [place] [address]- 7727 Aug, [facility] [place] [facility] [address] [id number] [place] [address]- 4075 Aug, [facility] [place] [facility] [address] [id number] [place] [address]- 8044 Jul, [facility] [place] [facility] [address] [id number] [place] [address]- 8380 Jul, [facility] [place] [facility] [address] [id number] [place] [address]- 1600 Jul, [facility] [place] [facility] [address] [id number] [place] [address]- 7730 Jul, [facility] [place] [facility] [address] [id number] [place] [address]- 3686 Jul, [facility] [place] [facility] [address] [id number] [place] [address]- 5927 Jul, [facility] [address] [id number] [place] [address]- 0846 Jul, [facility] [place] [facility] [address] [id number] [place] [address]- 3276 Jul, [facility] [address] [facility] [id number] [place] [address]- 5757 Jun, [facility] [place] [facility] [address] [id number] [place] [address]- 3632 Jun, [facility] [address] [id number] [place] [address]- 4413 Jun, [facility] [place] [facility] [address] [id number] [place] [address]- 7492 Jun, [facility] [place] [facility] [address] [id number] [place] [address]- 5182 Jun, [facility] [place] [facility] [address] [id number], [place] [address]- 3474 Jun, [facility] [place] [facility] [address] [id number] [place] [address]- 7326 May, [facility] [place] [facility] [address] [id number], [place] [address]- 7052 May, [facility] [place] [facility] [address] [id number], [place] [address]- 4406 May, [facility] [place] [facility] [address] [id number], [place] [address]- 4070 May, [facility] [place] [facility] [address] [id number], [place] [address]- 1377 Apr, [facility] [place] [facility] [address] [id number], [place] [address]- 1202 Apr, [facility] [place] [facility] [address] [facility] [id number], [place] [address]- 5219 Apr, [facility] [place] [facility] [address] [id number] [place] [address]- 2655 07 Apr, 2013 [facility] [address] [id number] [place] [address]- 1376 25 Mar, 2012 [facility] [place] [facility] [address] [id number] [place] [address] 2546 23 Mar, 2013 [facility] [place] [facility] [address] [id number] [place] [address] 16 Mar, 2012 [facility] [place] [facility] [address] [id number] [place] [address] 12 Mar, 2013 [facility] [place] [facility] [address] [id number] [place] [address] 09 Mar, 2013 [facility] [place] [facility] [address] [id number] [place] [address] 04 Mar, 2013 [facility] [place] [facility] [address] [id number] [place] [address] Feb, [facility] [place] [facility] [address] [id number] [place] [address] Feb, [facility] [place] [facility] [address] [id number] [place] [address] Feb, [facility] [place] [facility] [address] [id number] [place] [address] Feb, [facility] [place] [facility] [address] [id number] [place] [address] Jan, [facility] [place] [facility] [address] [id number] [place] [address] Dec, [facility] [place] [facility] [address] [id number] [place] [address] November, [facility] [place] [facility] [address] [id number] [place] [address] Sep, [facility] [place] [facility] [address] [id number] [place] [address] Aug, [facility] [place] [facility] [address] [id number] [place] [address] Aug, [facility] [place] [facility] [address] [id number] [place] [address] Jul, [facility] [place] [facility] [address] [id number] [place] [address] Jul, [facility] [place] [facility] [address] [id number] [place] [address] Jun, [facility] [place] [facility] [address] [id number] [place] [address] Jun, [facility] [place] [facility] [address] [id number] [place] [address] Jun, [facility] [place] [facility] [address] [id number] [place] [address] Jun, [facility] [place] [facility] [address] [id number] [place] [address] Jun, [facility] [place] [facility] [address] [id number] [place] [address] Jun, [facility] [place] [facility] [address] [id number] [place] [address] May, [facility] [place] [facility] [address] [id number] [place] [address] May, [facility] [place] [facility] [address] [id number] [place] [address] May, [facility] [place] [facility] [address] [id number] [place] [address] May, [facility] [place] [facility] [address] [id number] [place] [address] May, [facility] [place] [facility] [address] [id number] [place] [address] May, [facility] [place] [facility] [address] [id number], [place] [address] 15 May, 2012 [facility] [place] [facility] [address] [id number] [place] [address] 15 May, 2012 [facility] [place] [facility] [address] [id number], [place] [address] 14 May, 2012 [facility] [place] [facility] [address] [id number] [place] [address] 14 May, 2012 [facility] [place] [facility] [address] [id number], [place] [address] 12 May, 2012 [facility] [place] [facility] [address] [id number] [place] [address] 12 May, 2012 [facility] [place] [facility] [address] [id number] [place] [address] May, [facility] [place] [facility] [address] [facility] [id number], [place] [address] May, [facility] [place] [facility] [address] [id number] [place] [address] May, [facility] [place] [facility] [address] [id number], [place] [address] Apr, [facility] [place] [facility] [address] [id number] [place] [address] Apr, [facility] [place] [facility] [address] [id number], [place] [address] Apr, [facility] [place] [facility] [address] [id number], [place] [address] Apr, [facility] [place] [facility] [address] [id number] [place] [address] Apr, [facility] [place] [facility] [address] [facility] [id number], [place] [address] Apr, [facility] [place] [facility] [address] [facility] [id number] [place] [address] Apr, [facility] [place] [facility] [address] [id number] [place] [address] Apr, [facility] [place] [facility] [address] [id number] [place] [address] Apr, [facility] [place] [facility] [address] [id number] [place] [address] Apr, [facility] [place] [facility] [address] [id number] [place] [address] 25 Mar, 2012 [facility] [place] [facility] [address] [id number] [place] [address] 24 Mar, 2012 [facility] [place] [facility] [address] [id number] [place] [address] 14 Mar, 2012 [facility] [place] [facility] [address] [id number] [place] [address] 04 Mar, 2012 [facility] [place] [facility] [address] [id number] [place] [address] Feb, [facility] [place] [facility] [address] [id number] [place] [address] Feb, [facility] [place] [facility] [address] [id number] [place] [address] 15 Feb, 2012 [facility] [place] [facility] [address] [id number] [place] [address] 14 Feb, 2012 [facility] [place] [facility] [address] [id number] [place] [address] Feb, [facility] [place] [facility] [address] [id number] [place] [address] November, [facility] [place] [facility] [address] [id number] [place] [address] Aug, [facility] [place] [facility] [address] [id number] [place] [address] May, [facility] [place] [facility] [address] [id number] [place] [address] May, [facility] [address] [facility] [id number] [place] [address] Apr, [facility] [address] [facility] [id number], [place] [address] Mar, IMMUNIZATIONS No Known Immunizations SOCIAL HISTORY Never Assessed REASON FOR VISIT PLAN OF CARE VITAL SIGNS MEDICATIONS Medication Instructions Dosage Frequency Start Date End Date Duration Status PredniSONE 20 mg Orally Once a day 2 tablets 24h November, Active Levaquin 500 mg Orally Once a day 1 tablet 24h November, Dec, 07 days Active RESULTS No Results PROCEDURES No [...] Hospitalization History Resp distress with hypoxia, pulmonary fibrosis-[facility] 08/03/16 Hospitalization History Shortness of breath 04/2017
--- OUTSIDE RECORDS SUMMARY | 2018-09-03 14:51 | XMS REPORT ---
Author Author RILEY SCHRADER Organization [facility] Address [address] [place] [address] Care Team Providers Care Birth Certificate Clerk Name Role Phone RILEY SCHRADER Unavailable PROBLEMS Type Condition ICD9-CM Code LLU48-[place] Code Onset Dates Condition Status SNOMED Code Problem Psoriasis L40.9 Active 5037084 Problem Rheumatoid arthritis involving multiple sites with positive rheumatoid factor M05.79 Active 706984501 Problem Vision loss, left eye H54.62 Active 97332974 Problem Primary insomnia F51.01 Active 5051060 Problem Other elevated white blood cell (WBC) count D72.828 Active 617384682 Problem Essential hypertension I10 Active 80865458 Problem Hematochezia K92.1 Active 332635046 Problem Type 2 diabetes mellitus with hyperglycemia, without long-term current use of insulin E11.65 Active 04947873 Problem Tobacco use Z72.0 Active 062411674 Problem Renal cyst, right N28.1 Active 93437385 Problem Idiopathic pulmonary fibrosis J84.112 Active 374968111 Problem Chronic obstructive pulmonary disease, unspecified J44.9 Active 59963938 Problem Lactic acidosis E87.2 Active 00471072 Problem Hyperlipidemia E78.5 Active 47126399 ALLERGIES Substance Reaction Event Type Date Status Naprosyn Unknown Drug Allergy November, Active Celebrex Unknown Drug Allergy November, Active ENCOUNTERS Encounter Location Date Diagnosis [facility] [address] [facility] [id number] [address] Mar, [facility] [address] [facility] [id number] [address] Mar, [facility] [address] [id number] [address] Feb, [facility] [address] [facility] [id number] [address] Jan, Rheumatoid arthritis involving multiple sites with positive rheumatoid factor M05.79 and Psoriasis L40.9 [facility] [address] [address] Jan, [facility] [address] [place] [address] 34736- 0217 November, [facility] [address] [place] [address] 39929- 8763 November, Rheumatoid arthritis involving multiple sites with positive rheumatoid factor M05.79 [place] [id number] [place] [address] 064308- 6453 November, Rheumatoid arthritis involving multiple sites with positive rheumatoid factor M05.79 [place] [id number] [place] [address] 12681- 5058 November, Rheumatoid arthritis involving multiple sites with positive rheumatoid factor M05.79 [place] [id number] [place] [address] 08625- 6199 Oct, Rheumatoid arthritis involving multiple sites with positive rheumatoid factor M05.79 [place] [address] [place] [address] 43873- 2529 Oct, [place] [address] [place] [address] 78545- 6070 Oct, Rheumatoid arthritis involving multiple sites with positive rheumatoid factor M05.79 [place] [address] [place] [address] 11532- 8686 Oct, Rheumatoid arthritis involving multiple sites with positive rheumatoid factor M05.79 ; Type 2 diabetes mellitus with hyperglycemia, without long-term current use of insulin E11.65 ; Hyperlipidemia E78.5 and Other elevated white blood cell (WBC) count D72.828 [place] [address] [place] [address] 04929- 7161 Oct, Chronic obstructive pulmonary disease, unspecified J44.9 [place] [address] [place] [address] 18848- 4849 Oct, Rheumatoid arthritis involving multiple sites with positive rheumatoid factor M05.79 [place] [id number] [place] [address] 70276- 5410 Oct, Type 2 diabetes mellitus with hyperglycemia, without long- term current use of insulin E11.65 [place] [id number] [place] [address] 40907- 9492 Sep, [place] [id number] [place] [address] 45609- 6103 Sep, Visit for TB skin test Z11.1 ; Rheumatoid arthritis involving multiple sites with positive rheumatoid factor M05.79 and Psoriasis L40.9 [place] [id number] [place] [address] 63730- 9763 Sep, Type 2 diabetes mellitus with hyperglycemia, without long- term current use of insulin E11.65 ; Rheumatoid arthritis involving multiple sites with positive rheumatoid factor M05.79 ; Hyperlipidemia E78.5 ; Essential hypertension I10 ; Other elevated white blood cell (WBC) count D72.828 ; Primary insomnia F51.01 and Tobacco use Z72.0 [place] [id number] [place] [address] 28705- 9050 Sep, [place] [id number] [place] [address] 20867- 9149 Aug, Type 2 diabetes mellitus with hyperglycemia, without long- term current use of insulin E11.65 and Hyperlipidemia E78.5 [place] [address] [place] [address] 89085- 6340 Jul, [place] [id number] [place] [address] 03002- 8778 Jul, Rheumatoid arthritis involving multiple sites with positive rheumatoid factor M05.79 [place] [id number] [place] [address] 53908- 3775 Jul, Rheumatoid arthritis involving multiple sites with positive rheumatoid factor M05.79 [place] [id number] [place] [address] 50737- 0460 Jun, Essential hypertension I10 and Hyperlipidemia E78.5 [facility] [address] [address] 5[address] Jun, Chronic obstructive pulmonary disease, unspecified J44.9 [facility] [address] [address] 6830 Jun, [facility] [id number] [place] [address] 75165- 9505 May, Type 2 diabetes mellitus without complication E11.9 ; Rheumatoid arthritis involving multiple sites with positive rheumatoid factor M05.79 ; Psoriasis L40.9 and Essential hypertension I10 [facility] [id number] [id number] May, Dental examination Z01.20 and Dental caries K02.9 [facility] [address] [address]- 9372 Apr, Type 2 diabetes mellitus without complication E11.9 ; Type 2 diabetes mellitus with hyperglycemia, without long-term current use of insulin E11.65 ; Idiopathic pulmonary fibrosis J84.112 ; Essential hypertension I10 ; Tobacco use Z72.0 ; Rheumatoid arthritis involving multiple sites with positive rheumatoid factor M05.79 ; Hyperlipidemia E78.5 and Chronic obstructive pulmonary disease, unspecified J44.9 [facility] [address] [address]- 0689 Apr, Dental examination Z01.20 [facility] [address] [address]- 3155 Apr, [facility] [address] [address]- 9741 Apr, [facility] [id number] [place] [address] 15005- 6139 Apr, [facility] [address] [address]- 3142 Apr, [facility] [address] [place] [address] 65432- 5726 Apr, [facility] [address] [address]- 2115 Apr, Type 2 diabetes mellitus without complication E11.9 and Essential hypertension I10 [facility] [address] [address]- 0348 Mar, [facility] [id number] [place] [address] 83687- 6694 Mar, Rheumatoid arthritis involving multiple sites with positive rheumatoid factor M05.79 [facility] [address] [place] [address] 71438- 7576 Mar, Type 2 diabetes mellitus without complication E11.9 ; Essential hypertension I10 and Hyperlipidemia E78.5 [facility] [address] [place] [address] 07927- 4178 Mar, Rheumatoid arthritis involving multiple sites with positive rheumatoid factor M05.79 [facility] [id number] [place] [address] 79693- 6856 Mar, [facility] [address] [place] [address] 43603- 9553 Mar, Hyperlipidemia E78.5 ; Essential hypertension I10 and Type 2 diabetes mellitus without complication E11.9 [facility] [address] [place] [address] 62030- 0281 Feb, Rheumatoid arthritis involving multiple sites with positive rheumatoid factor M05.79 and Essential hypertension I10 [facility] [address] [place] [address] 92180- 0316 Jan, Rheumatoid arthritis involving multiple sites with positive rheumatoid factor M05.79 [facility] [address] [place] [address] 11684- 7398 Dec, Rheumatoid arthritis involving multiple sites with positive rheumatoid factor M05.79 [facility] [address] [address]- 6716 Dec, [facility] [id number] [place] [address] 90274- 5203 November, Rheumatoid arthritis involving multiple sites with positive rheumatoid factor M05.79 and Psoriasis L40.9 [facility] [id number] [place] [address] 69334- 6909 November, Hyperlipidemia E78.5 [place] [id number] [place] [address] 75846- 0332 November, Type 2 diabetes mellitus without complication E11.9 [place] [id number] [place] [address] 25916- 9568 November, [place] [id number] [place] [address] 73278- 9227 November, Rheumatoid arthritis involving multiple sites with positive rheumatoid factor M05.79 ; Hyperlipidemia E78.5 ; Type 2 diabetes mellitus without complication E11.9 ; Idiopathic pulmonary fibrosis J84.112 and Tobacco use Z72.0 [place] [id number] [place] [address] 10225- 5603 Oct, Essential hypertension I10 and Rheumatoid arthritis involving multiple sites with positive rheumatoid factor M05.79 [place] [id number] [place] [address] 03490- 4887 Sep, Rheumatoid arthritis involving multiple sites with positive rheumatoid factor M05.79 and Psoriasis L40.9 [place] [id number] [place] [address] 70021- 9138 Jul, Rheumatoid arthritis involving multiple sites with positive rheumatoid factor M05.79 [place] [id number] [place] [address] 71821- 9882 Jul, Idiopathic pulmonary fibrosis J84.112 [facility] [id number] [place] [address] [id number] Jul, [place] [address] [place] [address] 90700- 0198 Jul, Idiopathic pulmonary fibrosis J84.112 [place] [id number] [place] [address] 74188- 6664 Jul, Idiopathic pulmonary fibrosis J84.112 and Hypoxia R09.02 [facility] [id number] [place] [address] 80498- 6314 Jul, Cough R05 and Idiopathic pulmonary fibrosis J84.112 [facility] [id number] [place] [address] 97038- 3651 Apr, Type 2 diabetes mellitus without complication E11.9 ; Rheumatoid arthritis involving multiple sites with positive rheumatoid factor M05.79 ; Psoriasis L40.9 ; Hyperlipidemia E78.5 ; Idiopathic pulmonary fibrosis J84.112 and Essential hypertension I10 [place] [id number] [place] [address] 72062- 4405 Feb, [place] [address] 22143- 4535 Feb, [place] [address] 93417- 0819 Dec, Right ankle gives way M25.371 [place] [id number] [place] [address] 29157- 9908 November, [place] [address] 57171- 6206 November, Wrist pain, left M25.532 [place] [id number] [place] [address] 73655- 4530 Sep, Psoriasis L40.9 [facility] [id number] [place] [address] 20813- 7303 Sep, COPD exacerbation J44.1 [place] [id number] [place] [address] 74853- 9726 Aug, [place] [id number] [place] [address] 30520- 4784 Aug, Rheumatoid arthritis involving multiple sites with positive rheumatoid factor M05.79 and Hyperlipidemia E78.5 [place] [address] 81881- 2970 10 Aug, 2015 [facility] [address] [address]- 8859 Aug, Psoriasis L40.9 ; Rheumatoid arthritis involving multiple sites with positive rheumatoid factor M05.79 and Essential hypertension I10 [facility] [address] [address]- 6662 Jul, [facility] [id number] [place] [address] 71624- 7058 Jul, [facility] [address] [place] [address] 32599- 3489 Jul, Type 2 diabetes mellitus without complication E11.9 ; Hyperlipidemia E78.5 and Rheumatoid arthritis involving multiple sites with positive rheumatoid factor M05.79 [facility] [id number] [place] [address] 10312- 4932 Jun, [facility] [id number] [place] [address] 48265- 5647 Apr, [facility] [id number] [place] [address] 94228- 6957 Mar, [facility] [id number] [place] [address] 75458- 9864 Mar, [facility] [address] [address]- 5753 Mar, Rheumatoid arthritis 714.0 ; Other psoriasis 696.1 and Cellulitis, axillary fold 682.3 [facility] [address] [address]- 0206 Jan, [facility] [id number] [place] [address] 47890- 8865 Dec, [facility] [address] [address] 7744 Dec, Other and unspecified hyperlipidemia 272.4 ; Other psoriasis 696.1 and Diabetes mellitus without mention of complication, type II or unspecified type, not stated as uncontrolled 250.00 [facility] [place] [facility] [address] [id number] [place] [address]- 9817 Dec, [facility] [place] [facility] [address] [id number] [place] [address]- 6510 November, [facility] [place] [facility] [address] [id number] [place] [address]- 8181 Oct, [facility] [place] [facility] [address] [id number] [place] [address]- 8512 Oct, [facility] [place] [facility] [address] [id number] [place] [address]- 3404 Sep, [facility] [place] [facility] [address] [id number] [place] [address]- 8045 Sep, [facility] [place] [facility] [address] [id number] [place] [address]- 4966 Sep, [facility] [place] [facility] [address] [id number] [address]- 3209 Sep, [facility] [place] [facility] [address] [id number] [place] [address]- 0539 Sep, [facility] [place] [facility] [address] [id number] [place] [address]- 5707 Sep, [facility] [place] [facility] [address] [id number] [address]- 3103 Sep, [facility] [place] [facility] [address] [id number] [address]- 0467 Sep, [facility] [place] [facility] [address] [id number] [place] [address]- 3836 Sep, [facility] [place] [facility] [address] [id number] [place] [address]- 2797 Sep, [facility] [place] [facility] [address] [id number] [place] [address]- 3904 Jul, [facility] [place] [facility] [address] [id number] [place] [address]- 2979 19 Jul, 2014 [facility] [place] [facility] [address] [id number] [place] [address]- 8707 16 Jul, 2014 [facility] [place] [facility] [address] [id number] [place] [address]- 1485 16 Jul, 2014 [facility] [place] [facility] [address] [id number] [place] [address]- 5795 15 Jul, 2014 [facility] [place] [facility] [address] [id number] [place] [address]- 1577 15 Jul, 2014 [facility] [place] [facility] [address] [id number] [place] [address]- 1750 Jul, [facility] [place] [facility] [address] [id number] [place] [address]- 6559 Jul, [facility] [place] [facility] [address] [id number] [place] [address]- 3347 Jun, [facility] [place] [facility] [address] [id number] [place] [address]- 1833 Jun, [facility] [place] [facility] [address] [id number] [place] [address]- 8592 Jun, [facility] [place] [facility] [address] [facility] [id number] [place] [address]- 1758 Jun, [facility] [place] [facility] [address] [id number] [place] [address]- 5590 Jun, [facility] [place] [facility] [address] [id number] [place] [address]- 2970 Jun, [facility] [place] [facility] [address] [id number] [place] [address]- 9848 Apr, [facility] [place] [facility] [address] [id number] [place] 2506 Apr, [facility] [place] [facility] [address] [id number] [place] [address]- 5998 Mar, [facility] [place] [facility] [address] [id number] [place] [address]- 2295 Mar, [facility] [place] [facility] [address] [id number] [place] [address]- 1323 Feb, [facility] [place] [facility] [address] [id number] [place] [address]- 0534 Feb, [facility] [place] [facility] [address] [id number] [place] [address]- 3241 Jan, [facility] [place] [facility] [address] [id number] [place] [address]- 7452 Jan, [facility] [place] [facility] [address] [id number] [place] [address]- 9754 Jan, [facility] [place] [facility] [address] [id number] [place] [address]- 1582 Jan, [facility] [place] [facility] [address] [id number] [place] [address]- 7876 Jan, [facility] [place] [facility] [address] [id number] [place] [address]- 8731 Dec, [facility] [place] [facility] [address] [id number] [place] [address]- 0271 Dec, [facility] [place] [facility] [address] [id number] [place] [address]- 6563 Dec, [facility] [place] [facility] [address] [id number] [place] [address]- 8359 Dec, [facility] [place] [facility] [address] [id number] [place] [address]- 1483 November, [facility] [place] [facility] [address] [id number] [place] [address]- 3083 November, [facility] [place] [facility] [address] [id number] [place] [address]- 9145 Oct, [facility] [place] [facility] [address] [id number] [place] [address]- 2564 Oct, [facility] [place] [facility] [address] [id number] [place] [address]- 4968 Sep, [facility] [place] [facility] [address] [id number] [place] [address]- 8826 Sep, [facility] [place] [facility] [address] [id number] [place] [address]- 9835 Sep, [facility] [place] [facility] [address] [id number] [place] [address]- 7770 Sep, [facility] [place] [facility] [address] [id number] [place] [address]- 9324 Aug, [facility] [place] [facility] [address] [id number] [place] [address]- 5068 Aug, [facility] [place] [facility] [address] [facility] [id number] [place] [address]- 6411 Aug, [facility] [place] [facility] [address] [id number] [place] [address]- 6944 Aug, [facility] [place] [facility] [address] [id number] [place] [address]- 0903 Aug, [facility] [place] [facility] [address] [facility] [id number] [place] [address]- 1294 Aug, [facility] [place] [facility] [address] [facility] [id number] [place] [address]- 5729 Jul, [facility] [place] [facility] [address] [id number] [place] [address]- 6926 Jul, [facility] [place] [facility] [address] [id number] [place] [address]- 5995 Jul, [facility] [place] [facility] [address] [id number] [place] [address]- 0594 Jul, [facility] [place] [facility] [address] [id number] [address]- 1567 Jul, [facility] [place] [facility] [address] [id number] [place] [address]- 5347 Jul, [facility] [place] [facility] [address] [id number] [place] [address]- 0512 Jul, [facility] [place] [facility] [address] [id number] [place] [address]- 8521 Jul, [facility] [place] [facility] [address] [id number] [place] [address]- 0159 Jun, [facility] [place] [facility] [address] [id number] [place] [address] Jun, [facility] [place] [facility] [address] [id number] [place] [address] Jun, [facility] [place] [facility] [address] [id number] [place] [address] Jun, [facility] [place] [facility] [address] [id number] [place] [address] Jun, [facility] [place] [facility] [address] [id number] [place] [address] Jun, [facility] [place] [facility] [address] [id number] [place] [address] May, [facility] [place] [facility] [address] [id number] [place] [address] May, [facility] [place] [facility] [address] [id number] [place] [address] May, [facility] [place] [facility] [address] [id number] [place] [address] May, [facility] [place] [facility] [address] [id number] [place] [address] Apr, [facility] [place] [facility] [address] [id number] [place] [address] Apr, [facility] [place] [facility] [address] [id number] [place] [address] 08 Apr, 2013 [facility] [place] [facility] [address] [id number] [place] [address] 07 Apr, 2013 [facility] [place] [facility] [address] [id number] [place] [address] 25 Mar, 2013 [facility] [place] [facility] [address] [id number] [place] [address] 23 Mar, 2013 [facility] [place] [facility] [address] [id number] [place] [address] 16 Mar, 2013 [facility] [place] [facility] [address] [id number] [place] [address] 12 Mar, 2013 [facility] [place] [facility] [address] [id number] [place] [address] 09 Mar, 2013 [facility] [place] [facility] [address] [id number] [place] [address] Mar, [facility] [place] [facility] [address] [id number] [place] [address] Feb, [facility] [place] [facility] [address] [id number] [place] [address] Feb, [facility] [place] [facility] [address] [id number] [place] [address] Feb, [facility] [place] [facility] [address] [id number] [place] [address] Feb, [facility] [place] [facility] [address] [id number] [address] Jan, [facility] [place] [facility] [address] [id number] [place] [address] Dec, [facility] [place] [facility] [address] [id number] [place] [address] November, [facility] [place] [facility] [address] [id number] [place] [address] Sep, [facility] [place] [facility] [address] [id number] [place] [address] 28 Aug, 2012 [facility] [address] [id number] [place] [address] Aug, [facility] [address] [id number] [place] [address] Jul, [facility] [address] [id number] [place] [address] Jul, [facility] [address] [id number] [place] [address] Jun, [facility] [address] [id number] [place] [address] Jun, [facility] [address] [id number] [place] [address] Jun, [facility] [address] [id number] [place] [address] Jun, [facility] [address] [id number] [place] [address] Jun, [facility] [address] [id number] [place] [address] Jun, [facility] [address] [id number] [place] [address] May, [facility] [address] [id number] [place] [address] May, [facility] [address] [id number] [place] [address] May, [facility] [place] [facility] [address] [id number] [place] [address] May, [facility] [place] [facility] [address] [id number] [place] [address] May, [facility] [place] [facility] [address] [id number] [place] [address] May, [facility] [place] [facility] [address] [id number] [place] [address] 15 May, 2012 [facility] [place] [facility] [address] [id number] [place] [address] 15 May, 2012 [facility] [place] [facility] [address] [id number] [place] [address] 14 May, 2012 [facility] [place] [facility] [address] [id number] [place] [address] 14 May, 2012 [facility] [place] [facility] [address] [id number] [place] [address] May, [facility] [place] [facility] [address] [id number] [place] [address] 12 May, 2012 [facility] [place] [facility] [address] [id number] [place] [address] May, [facility] [place] [facility] [address] [id number] [place] [address] 10 May, 2012 [facility] [place] [facility] [address] [id number] [place] [address] May, [facility] [place] [facility] [address] [id number] [place] [address] Apr, [facility] [place] [facility] [address] [id number] [place] [address] Apr, [facility] [place] [facility] [address] [id number] [place] [address] Apr, [facility] [place] [facility] [address] [id number] [place] [address] Apr, [facility] [place] [facility] [address] [id number] [place] [address] Apr, [facility] [place] [facility] [address] [id number] [place] [address] Apr, [facility] [place] [facility] [address] [id number] [place] [address] Apr, [facility] [place] [facility] [address] [id number] [place] [address] Apr, [facility] [place] [facility] [address] [id number] [place] [address] Apr, [facility] [place] [facility] [address] [id number] [place] [address] 08 Apr, 2012 [facility] [place] [facility] [address] [id number] [place] [address] 25 Mar, 2012 [facility] [place] [facility] [address] [id number] [place] [address] 24 Mar, 2012 [facility] [place] [facility] [address] [id number] [place] [address] 14 Mar, 2012 [facility] [place] [facility] [address] [id number] [place] [address] 04 Mar, 2012 [facility] [place] [facility] [address] [id number] [place] [address] Feb, [facility] [place] [facility] [address] [id number] [place] [address] 27 Feb, 2012 [facility] [place] [facility] [address] [id number] [place] [address] 15 Feb, 2012 [facility] [place] [facility] [address] [id number] [place] [address] 14 Feb, 2012 [facility] [place] [facility] [address] [id number] [place] [address] Feb, [facility] [place] [facility] [address] [id number] [place] [address] November, [facility] [place] [facility] [address] [id number] [place] [address] Aug, [facility] [place] [facility] [address] [id number] [place] [address] May, [facility] [place] [facility] [address] [facility] [id number] [place] [address] May, [facility] [address] [facility] [id number] [place] [address] Apr, [facility] [address] [facility] [id number] [place] [address] Mar, IMMUNIZATIONS Vaccine Route Administration Date Status HUMIRA (PT'S OWN) SC Subcutaneous December 06, 2017 Administered SOCIAL HISTORY Never Assessed REASON FOR VISIT arthritis-Ezequiel YOON PLAN OF CARE Activity Details Follow Up 6 Weeks Reason:RA / labs VITAL SIGNS Height 67 in 2017-12-06 Weight 215.6 lbs 2017-12-06 Temperature 98.3 degrees Fahrenheit 2017-12-06 Heart Rate 93 bpm 2017-12-06 Respiratory Rate 24 2017-12-06 Oximetry on room air:96 % 2017-12-06 BMI 33.76 kg/m2 2017-12-06 Blood pressure systolic 128 mmHg 2017-12-06 Blood pressure diastolic 80 mmHg 2017-12-06 MEDICATIONS Medication Instructions Dosage Frequency Start Date End Date Duration Status Glucocard Expression Monitor w/Device as directed Apr, Not-Taking Folic Acid 1 MG Orally Once a day; except on days you take methotrexate 1 tablet November, May, 90 days Active Lipitor 40 mg Orally Once a day 1 tablet 24h Active Glucocard Expression Test - In Vitro Once a day as directed 24h Apr, Not-Taking Piroxicam 20 mg Orally Once a day 1 capsule with food 24h Active Hydroxychloroquine Sulfate 200 mg Orally Once a day 2 tablet with food or milk 24h 30 days Active Hydrocodone-Acetaminophen 5-325 MG Orally every 6 hrs 1 tablet as needed 6h Jan, Not-Taking Ventolin HFA 108 (90 Base) MCG/ACT Inhalation every 4 hrs 2-4 puffs as needed 4h Active Methotrexate 2.5 MG Orally once weekly 6 tabs November, 90 days Active Lisinopril 20 mg Orally Once a day 1 tablet 24h 10 Aug, 2015 90 days Active GlipiZIDE 10 mg Orally twice a day 1 table 12h 90 days Active Clobetasol Propionate 0.05 % Externally Twice a day as needed for psoriasis 1 application to affected area Dec, Active Advair Diskus 250-50 MCG/DOSE Inhalation Twice a day, approximately 12 hrs apart 1 puff Active Calcipotriene 0.005 % Externally Twice a day 1 application to affected area 12h 30 Sep, 2015 Not-Taking Albuterol Sulfate (2.5 MG/3ML) 0.083% Inhalation every 6 hrs 3 ml as needed 6h 29 Mar, 2017 Active RESULTS No Results PROCEDURES Procedure Date Ordered Result Body Site HUMIRA (PT'S OWN) December 06, 2017 THER/PROPH/DIAG INJ, SC/IM December 06, 2017 INSTRUCTIONS MEDICATIONS ADMINISTERED No Known Medications [...] Hospitalization History Resp distress with hypoxia, pulmonary fibrosis-[facility] 08/03/16 Hospitalization History Shortness of breath 04/2017
--- OUTSIDE RECORDS SUMMARY | 2018-09-03 14:52 | XMS REPORT ---
Author Author RILEY SCHRADER Organization [facility] Address [address] [place] [address] Care Team Providers Care Mandrel Cleaner Name Role Phone RILEY SCHRADER Unavailable PROBLEMS Type Condition ICD9-CM Code YLT53-LA Code Onset Dates Condition Status SNOMED Code Problem Psoriasis L40.9 Active 6044449 Problem Rheumatoid arthritis involving multiple sites with positive rheumatoid factor M05.79 Active 068968790 Problem Vision loss, left eye H54.62 Active 36524843 Problem Primary insomnia F51.01 Active 3955463 Problem Other elevated white blood cell (WBC) count D72.828 Active 517894146 Problem Essential hypertension I10 Active 54176653 Problem Hematochezia K92.1 Active 561392400 Problem Type 2 diabetes mellitus with hyperglycemia, without long-term current use of insulin E11.65 Active 43607543 Problem Tobacco use Z72.0 Active 267495578 Problem Renal cyst, right N28.1 Active 17235984 Problem Idiopathic pulmonary fibrosis J84.112 Active 562079529 Problem Chronic obstructive pulmonary disease, unspecified J44.9 Active 15973546 Problem Lactic acidosis E87.2 Active 46099324 Problem Hyperlipidemia E78.5 Active 01231637 ALLERGIES No Information ENCOUNTERS Encounter Location Date Diagnosis [facility] [id number], [place] [address] Feb, [facility] [address], [place] [address] 7341 Jan, [facility] [id number] [place] [address] 04544- 9947 Jan, [facility] [address], [place] [address] 8[address] November, [facility] [id number] [place] [address] 44132- 6302 November, Rheumatoid arthritis involving multiple sites with positive rheumatoid factor M05.79 [facility] [id number] [place] [address] 64239- 5920 November, Rheumatoid arthritis involving multiple sites with positive rheumatoid factor M05.79 [facility] [id number] [place] [address] 36992- 5987 November, Rheumatoid arthritis involving multiple sites with positive rheumatoid factor M05.79 [facility] [id number] [place] [address] 22807- 1394 Oct, Rheumatoid arthritis involving multiple sites with positive rheumatoid factor M05.79 [facility] [id number] [place] [address] 31168- 6769 Oct, [facility] [id number] [place] [address] 12748- 5552 Oct, Rheumatoid arthritis involving multiple sites with positive rheumatoid factor M05.79 [facility] [id number] [place] [address] 23184- 4837 Oct, Rheumatoid arthritis involving multiple sites with positive rheumatoid factor M05.79 ; Type 2 diabetes mellitus with hyperglycemia, without long-term current use of insulin E11.65 ; Hyperlipidemia E78.5 and Other elevated white blood cell (WBC) count D72.828 [facility] [address], [place] [address] 3093 Oct, Chronic obstructive pulmonary disease, unspecified J44.9 [facility] [id number] [place] [address] 71398- 6682 Oct, Rheumatoid arthritis involving multiple sites with positive rheumatoid factor M05.79 [facility] [id number] [place] [address] 65180- 3922 Oct, Type 2 diabetes mellitus with hyperglycemia, without long- term current use of insulin E11.65 [facility] [address], [place] [address] 8159 Sep, [facility] [id number] [place] [address] 02757- 7530 Sep, Rheumatoid arthritis involving multiple sites with positive rheumatoid factor M05.79 ; Visit for TB skin test Z11.1 and Psoriasis L40.9 [facility] [id number] [place] [address] 37248- 6166 Sep, Type 2 diabetes mellitus with hyperglycemia, without long- term current use of insulin E11.65 ; Rheumatoid arthritis involving multiple sites with positive rheumatoid factor M05.79 ; Hyperlipidemia E78.5 ; Essential hypertension I10 ; Other elevated white blood cell (WBC) count D72.828 ; Primary insomnia F51.01 and Tobacco use Z72.0 [place] [address] 89273- 2234 Sep, [facility] [address] 42887- 3554 Aug, Type 2 diabetes mellitus with hyperglycemia, without long- term current use of insulin E11.65 and Hyperlipidemia E78.5 [facility] [id number] [place] [address] 76676- 7815 Jul, [facility] [address] 58034- 0142 Jul, Rheumatoid arthritis involving multiple sites with positive rheumatoid factor M05.79 [facility] [address] 06197- 1696 Jul, Rheumatoid arthritis involving multiple sites with positive rheumatoid factor M05.79 [facility] [id number] [place] [address] 17240- 7717 Jun, Essential hypertension I10 and Hyperlipidemia E78.5 [facility] [facility] [address] 18812- 3859 Jun, Chronic obstructive pulmonary disease, unspecified J44.9 [facility] [facility] [address] 39184- 2163 Jun, [facility] [address] 59558- 6017 May, Type 2 diabetes mellitus without complication E11.9 ; Rheumatoid arthritis involving multiple sites with positive rheumatoid factor M05.79 ; Psoriasis L40.9 and Essential hypertension I10 [facility] [id number] [id number] May, Dental examination Z01.20 and Dental caries K02.9 [facility] [id number] [place] [address] 34636- 4784 Apr, Type 2 diabetes mellitus without complication E11.9 ; Type 2 diabetes mellitus with hyperglycemia, without long-term current use of insulin E11.65 ; Idiopathic pulmonary fibrosis J84.112 ; Essential hypertension I10 ; Tobacco use Z72.0 ; Rheumatoid arthritis involving multiple sites with positive rheumatoid factor M05.79 ; Hyperlipidemia E78.5 and Chronic obstructive pulmonary disease, unspecified J44.9 [facility] [address], [place] [address] 4136 Apr, Dental examination Z01.20 [facility] [address], [place] [address]- 4467 Apr, [facility] [id number] [place] [address] 16903- 0334 Apr, [facility] [id number] [place] [address] 38472- 6477 Apr, [facility] [address], [place] [address]- 0217 Apr, [facility] [address], [place] [address]- 3966 Apr, [facility] [id number] [place] [address] 74272- 1081 Apr, Type 2 diabetes mellitus without complication E11.9 and Essential hypertension I10 [facility] [address], [place] [address]- 9206 Mar, [facility] [id number] [place] [address] 72534- 8479 Mar, Rheumatoid arthritis involving multiple sites with positive rheumatoid factor M05.79 [facility] [id number] [place] [address] 96093- 9436 Mar, Type 2 diabetes mellitus without complication E11.9 ; Essential hypertension I10 and Hyperlipidemia E78.5 [facility] [id number] [place] [address] 56548- 4899 Mar, Rheumatoid arthritis involving multiple sites with positive rheumatoid factor M05.79 [facility] [id number] [place] [address] 98204- 6773 Mar, [facility] [id number] [place] [address] 31604- 9943 Mar, Hyperlipidemia E78.5 ; Essential hypertension I10 and Type 2 diabetes mellitus without complication E11.9 [facility] [id number] [place] [address] 80426- 5946 Feb, Rheumatoid arthritis involving multiple sites with positive rheumatoid factor M05.79 and Essential hypertension I10 [facility] [id number] [place] [address] 21418- 5966 Jan, Rheumatoid arthritis involving multiple sites with positive rheumatoid factor M05.79 [facility] [id number] [place] [address] 40220- 0999 Dec, Rheumatoid arthritis involving multiple sites with positive rheumatoid factor M05.79 [facility] [id number] [place] [address] 99209- 9086 Dec, [facility] [id number] [place] [address] 68200- 7396 November, Rheumatoid arthritis involving multiple sites with positive rheumatoid factor M05.79 and Psoriasis L40.9 [facility] [id number] [place] [address] 57064- 5787 November, Hyperlipidemia E78.5 [facility] [id number] [place] [address] 86793- 2844 November, Type 2 diabetes mellitus without complication E11.9 [facility] [id number] [place] [address] 88200- 6634 November, [facility] [id number] [place] [address] 10349- 8520 November, Rheumatoid arthritis involving multiple sites with positive rheumatoid factor M05.79 ; Hyperlipidemia E78.5 ; Type 2 diabetes mellitus without complication E11.9 ; Idiopathic pulmonary fibrosis J84.112 and Tobacco use Z72.0 [place] [address] 41730- 2238 Oct, Essential hypertension I10 and Rheumatoid arthritis involving multiple sites with positive rheumatoid factor M05.[address] 444894- 4314 Sep, Rheumatoid arthritis involving multiple sites with positive rheumatoid factor M05.79 and Psoriasis L40.[address] 00920- 2152 Jul, Rheumatoid arthritis involving multiple sites with positive rheumatoid factor M05.79 [place] [facility] [id number] [place] [address] 57677- 1313 Jul, Idiopathic pulmonary fibrosis J84.112 [address] [id number] [place] [address] [id number] Jul, [facility] [id number] [place] [address] 93556- 2931 Jul, Idiopathic pulmonary fibrosis J84.112 [facility] [id number] [place] [address] 44681- 6775 Jul, Idiopathic pulmonary fibrosis J84.112 and Hypoxia R09.[address] 19428- 9534 Jul, Cough R05 and Idiopathic pulmonary fibrosis J84.112 [facility] [facility] [id number] [place] [address] 90833- 2930 Apr, Type 2 diabetes mellitus without complication E11.9 ; Rheumatoid arthritis involving multiple sites with positive rheumatoid factor M05.79 ; Psoriasis L40.9 ; Hyperlipidemia E78.5 ; Idiopathic pulmonary fibrosis J84.112 and Essential hypertension I10 [facility] [address] [place] [address] 52862- 0980 Feb, [facility] [address], [place] [address]- 7246 Feb, [facility] [id number] [place] [address] 97053- 2801 Dec, Right ankle gives way M25.371 [facility] [id number] [place] [address] 92640- 3513 November, [facility] [id number] [place] [address] 72842- 6762 November, Wrist pain, left M25.532 [place] [facility] [id number] [place] [address] 60797- 7957 Sep, Psoriasis L40.9 [facility] [id number] [place] [address] 33416- 5711 Sep, COPD exacerbation J44.1 [facility] [id number] [place] [address] 13385- 4834 Aug, [facility] [id number] [place] [address] 35413- 6003 Aug, Rheumatoid arthritis involving multiple sites with positive rheumatoid factor M05.79 and Hyperlipidemia E78.5 [facility] [address], [place] [address]- 2857 Aug, [facility] [id number] [place] [address] 09081- 7531 Aug, Psoriasis L40.9 ; Rheumatoid arthritis involving multiple sites with positive rheumatoid factor M05.79 and Essential hypertension I10 [facility] [address], [place] [address]- 9513 Jul, [facility] [address], [place] [address]- 9178 Jul, [facility] [id number] [place] [address] 44430- 5863 Jul, Type 2 diabetes mellitus without complication E11.9 ; Hyperlipidemia E78.5 and Rheumatoid arthritis involving multiple sites with positive rheumatoid factor M05.79 [facility] [id number] [place] [address] 16855- 2504 Jun, [facility] [id number] [place] [address] 62851- 6313 Apr, [facility] [id number] [place] [address] 42006- 9053 Mar, [facility] [id number] [place] [address] 22416- 1760 Mar, [facility] [id number] [place] [address] 36340- 7699 Mar, Rheumatoid arthritis 714.0 ; Other psoriasis 696.1 and Cellulitis, axillary fold 682.3 [facility] [id number] [place] [address] 32498- 5572 Jan, [facility] [id number] [place] [address] 27123- 2928 Dec, [facility] [id number] [place] [address] 26992- 4339 Dec, Other and unspecified hyperlipidemia 272.4 ; Other psoriasis 696.1 and Diabetes mellitus without mention of complication, type II or unspecified type, not stated as uncontrolled 250.00 [facility] [id number] [place] [address] 14715- 7021 Dec, [facility] [id number] [place] [address] 25904- 6828 November, [facility] [id number] [place] [address] 86767- 9032 Oct, [facility] [place] [facility] [address] [id number] [place] [address]- 2546 13 Oct, 2014 [facility] [place] [facility] [address] [id number] [place] [address]- 4813 24 Sep, 2014 [facility] [place] [facility] [address] [id number] [place] [address]- 2546 24 Sep, 2014 [facility] [place] [facility] [address] [id number] [place] [address]- 0206 20 Sep, 2014 [facility] [place] [facility] [address] [id number] [place] [address]- 5976 20 Sep, 2014 [facility] [place] [facility] [address] [id number] [place] [address]- 5049 13 Sep, 2014 [facility] [place] [facility] [address] [id number] [place] [address]- 1126 Sep, [facility] [place] [facility] [address] [id number] [place] [address]- 5774 Sep, [facility] [place] [facility] [address] [id number] [place] [address]- 9976 Sep, [facility] [place] [facility] [address] [id number] [place] [address]- 1296 Sep, [facility] [place] [facility] [address] [id number] [place] [address]- 9576 Sep, [facility] [place] [facility] [address] [id number] [place] [address]- 1519 Jul, [facility] [place] [facility] [address] [id number] [place] [address]- 3501 Jul, [facility] [place] [facility] [address] [id number] [place] [address]- 2036 Jul, [facility] [place] [facility] [address] [id number] [place] [address]- 2546 16 Jul, 2014 [facility] [place] [facility] [address] [id number] [place] [address]- 9962 15 Jul, 2014 [facility] [place] [facility] [address] [id number] [place] [address]- 5823 15 Jul, 2014 [facility] [place] [facility] [address] [id number] [place] [address]- 1398 Jul, [facility] [place] [facility] [address] [id number] [place] [address]- 5421 Jul, [facility] [place] [facility] [address] [id number] [place] [address]- 8864 Jun, [facility] [place] [facility] [address] [id number] [place] [address]- 1089 Jun, [facility] [place] [facility] [address] [id number] [place] [address]- 6983 Jun, [facility] [place] [facility] [address] [id number] [place] [address]- 5065 Jun, [facility] [place] [facility] [address] [id number] [place] [address]- 9344 Jun, [facility] [place] [facility] [address] [id number] [place] [address]- 2910 Jun, [facility] [place] [facility] [address] [id number] [place] [address]- 3191 Apr, [facility] [place] [facility] [address] [id number], [place] [address]- 8576 Apr, [facility] [place] [facility] [address] [id number], [place] [address]- 7517 Mar, [facility] [place] [facility] [address] [id number] [place] [address]- 0228 Mar, [facility] [place] [facility] [address] [id number], [place] [address]- 4953 Feb, [facility] [place] [facility] [address] [id number], [place] [address]- 5030 Feb, [facility] [place] [facility] [address] [id number] [place] 8278 Jan, [facility] [place] [facility] [address] [id number] [place] [address]- 5594 Jan, [facility] [place] [facility] [address] [id number] [place] [address]- 1434 Jan, [facility] [place] [facility] [address] [id number] [place] [address]- 1715 Jan, [facility] [place] [facility] [address] [id number] [place] [address]- 1923 Jan, [facility] [place] [facility] [address] [id number] [place] [address]- 3609 Dec, [facility] [place] [facility] [address] [id number] [place] [address]- 9542 Dec, [facility] [place] [facility] [address] [id number] [place] [address]- 9535 Dec, [facility] [place] [facility] [address] [id number] [place] [address]- 9211 Dec, [facility] [place] [facility] [address] [id number] [place] [address]- 4156 November, [facility] [place] [facility] [address] [id number] [place] [address]- 3172 November, [facility] [place] [facility] [address] [id number] [place] [address]- 7981 Oct, [facility] [place] [facility] [address] [id number] [place] [address]- 5583 Oct, [facility] [place] [facility] [address] [id number] [place] [address]- 6114 Sep, [facility] [place] [facility] [address] [id number] [place] [address]- 7078 Sep, [facility] [place] [facility] [address] [id number] [place] [address]- 2293 Sep, [facility] [place] [facility] [address] [id number] [place] [address]- 3445 Sep, [facility] [place] [facility] [address] [id number] [place] [address]- 8505 Aug, [facility] [place] [facility] [address] [id number] [place] [address]- 2314 Aug, [facility] [place] [facility] [address] [id number] [place] [address]- 8769 Aug, [facility] [place] [facility] [address] [id number] [place] [address]- 2699 Aug, [facility] [place] [facility] [address] [id number] [place] [address]- 2256 Aug, [facility] [place] [facility] [address] [id number] [place] [address]- 2537 Aug, [facility] [place] [facility] [address] [id number] [place] [address]- 6667 Jul, [facility] [place] [facility] [address] [id number] [place] [address]- 7640 Jul, [facility] [place] [facility] [address] [id number] [place] [address]- 0889 Jul, [facility] [place] [facility] [address] [id number] [place] [address]- 0070 Jul, [facility] [place] [facility] [address] [id number] [place] [address]- 2313 Jul, [facility] [place] [facility] [address] [id number] [place] [address]- 2378 Jul, [facility] [place] [facility] [address] [id number] [place] [address]- 5385 Jul, [facility] [place] [facility] [address] [id number] [place] [address]- 7689 Jul, [facility] [place] [facility] [address] [id number] [place] [address]- 9891 Jun, [facility] [address] [id number] [place] [address]- 3703 Jun, [facility] [place] [facility] [address] [id number] [place] 1226 Jun, [facility] [place] [facility] [address] [id number] [place] [address]- 4515 Jun, [facility] [place] [facility] [address] [id number] [place] [address]- 0307 Jun, [facility] [place] [facility] [address] [id number] [place] [address]- 7082 Jun, [facility] [place] [facility] [address] [id number] [place] [address]- 1538 May, [facility] [place] [facility] [address] [id number] [place] [address]- 2118 May, [facility] [place] [facility] [address] [id number] [place] [address]- 3853 May, [facility] [place] [facility] [address] [id number] [place] [address]- 3479 May, [facility] [place] [facility] [address] [facility] [id number] [place] [address]- 9539 Apr, [facility] [place] [facility] [address] [id number] [place] [address]- 7694 Apr, [facility] [place] [facility] [address] [id number], [place] [address]- 6344 08 Apr, 2013 [facility] [place] [facility] [address] [id number] [place] [address]- 3599 07 Apr, 2013 [facility] [place] [facility] [address] [id number] [place] [address]- 3506 25 Mar, 2013 [facility] [place] [facility] [address] [id number] [place] [address]- 8208 23 Mar, 2013 [facility] [place] [facility] [address] [id number] [place] [address]- 1346 16 Mar, 2013 [facility] [address] [id number] [place] [address]- 8829 12 Mar, 2013 [facility] [place] [facility] [address] [id number] [place] [address]- 4932 09 Mar, 2013 [facility] [place] [facility] [address] [id number] [place] [address] Mar, [facility] [place] [facility] [address] [id number] [place] [address] Feb, [facility] [place] [facility] [address] [id number] [place] [address] Feb, [facility] [place] [facility] [address] [id number] [place] [address] Feb, [facility] [address] [id number] [place] [address] Feb, [facility] [place] [facility] [address] [id number] [place] [address] Jan, [facility] [place] [facility] [address] [id number] [place] [address] Dec, [facility] [place] [facility] [address] [id number] [place] [address] November, [facility] [place] [facility] [address] [id number] [place] [address] Sep, [facility] [place] [facility] [address] [id number] [place] [address] Aug, [facility] [place] [facility] [address] [id number] [place] [address] Aug, [facility] [place] [facility] [address] [id number] [place] [address] Jul, [facility] [place] [facility] [address] [id number] [place] [address] Jul, [facility] [place] [facility] [address] [id number] [place] [address] Jun, [facility] [place] [facility] [address] [id number] [place] [address] Jun, [facility] [place] [facility] [address] [id number] [place] [address] Jun, [facility] [place] [facility] [address] [id number] [place] [address] Jun, [facility] [place] [facility] [address] [id number] [place] [address] Jun, [facility] [place] [facility] [address] [id number] [place] [address] Jun, [facility] [place] [facility] [address] [id number] [place] [address] 30 May, 2012 [facility] [place] [facility] [address] [id number] [place] [address] 29 May, 2012 [facility] [place] [facility] [address] [id number] [place] [address] 28 May, 2012 [facility] [place] [facility] [address] [id number] [place] [address] 28 May, 2012 [facility] [place] [facility] [address] [id number] [place] [address] May, [facility] [place] [facility] [address] [id number] [place] [address] 27 May, 2012 [facility] [place] [facility] [address] [id number] [place] [address] 15 May, 2012 [facility] [place] [facility] [address] [id number] [place] [address] 15 May, 2012 [facility] [place] [facility] [address] [id number] [place] [address] 14 May, 2012 [facility] [place] [facility] [address] [id number] [place] [place] [address] 14 May, 2012 [facility] [place] [facility] [address] [id number] [place] [address] May, [facility] [place] [facility] [address] [id number] [place] [address] 12 May, 2012 [facility] [place] [facility] [address] [id number] [place] [address] May, [facility] [place] [facility] [address] [id number] [place] [address] 10 May, 2012 [facility] [place] [facility] [address] [id number] [place] [address] May, [facility] [place] [facility] [address] [id number] [place] [address] Apr, [facility] [place] [facility] [address] [id number] [place] [address] Apr, [facility] [place] [facility] [address] [id number] [place] [address] Apr, [facility] [place] [facility] [address] [facility] [id number] [place] [address] Apr, [facility] [place] [facility] [address] [facility] [id number] [place] [address] Apr, [facility] [place] [facility] [address] [id number] [place] [address] Apr, [facility] [place] [facility] [address] [id number] [place] [address] Apr, [facility] [place] [facility] [address] [id number] [place] [address] Apr, [facility] [place] [facility] [address] [facility] [id number] [place] [address] Apr, [facility] [place] [facility] [address] [id number] [place] [address] Apr, [facility] [address] [id number], [place] [address] 25 Mar, 2012 [facility] [address] [id number] [place] [address] 24 Mar, 2012 [facility] [address] [facility] [id number], [place] [address] 14 Mar, 2012 [facility] [address] [id number], [place] [address] 04 Mar, 2012 [facility] [address] [id number] [place] [address] Feb, [facility] [address] [id number], [place] [address] Feb, [facility] [address] [facility] [id number], [place] [address] 15 Feb, 2012 [facility] [address] [facility] [id number], [place] [address] 14 Feb, 2012 [facility] [address] [facility] [id number], [place] [address] Feb, [facility] [address] [facility] [id number], [place] [address] November, [facility] [address] [facility] [id number], [place] [address] Aug, [facility] [address] [facility] [id number], [place] [address] May, [facility] [address] [facility] [id number], [place] [address] May, [facility] [address] [facility] [id number], [place] [address] Apr, [facility] [address] [facility] [id number], [place] [address] 17 Mar, 2009 IMMUNIZATIONS No Known Immunizations SOCIAL HISTORY Never Assessed REASON FOR VISIT Medication Refills PLAN OF CARE VITAL SIGNS MEDICATIONS Unknown [...]
--- OUTSIDE RECORDS SUMMARY | 2018-09-03 14:52 | XMS REPORT ---
Author Author RILEY SCHRADER Organization [facility] Address [address] [place] [address] Care Team Providers Care Blindstitch Lapel Padder Name Role Phone RILEY SCHRADER Unavailable PROBLEMS Type Condition ICD9-CM Code [id number] Code Onset Dates Condition Status SNOMED Code Problem Psoriasis L40.9 Active 4498734 Problem Rheumatoid arthritis involving multiple sites with positive rheumatoid factor M05.79 Active 535657028 Problem Vision loss, left eye H54.62 Active 87329201 Problem Primary insomnia F51.01 Active 1957181 Problem Other elevated white blood cell (WBC) count D72.828 Active 889655276 Problem Essential hypertension I10 Active 45268910 Problem Hematochezia K92.1 Active 907821341 Problem Type 2 diabetes mellitus with hyperglycemia, without long-term current use of insulin E11.65 Active 17238927 Problem Tobacco use Z72.0 Active 220609116 Problem Renal cyst, right N28.1 Active 60709289 Problem Idiopathic pulmonary fibrosis J84.112 Active 233447194 Problem Chronic obstructive pulmonary disease, unspecified J44.9 Active 46751019 Problem Lactic acidosis E87.2 Active 81679701 Problem Hyperlipidemia E78.5 Active 28774666 ALLERGIES No Information ENCOUNTERS Encounter Location Date Diagnosis [facility] [id number] [address] Feb, [facility] [address] [address] Jan, [facility] [id number] [place] [address] 66929- 1051 Jan, [facility] [address] [address] November, [facility] [id number] [place] [address] 28740- 3240 November, Rheumatoid arthritis involving multiple sites with positive rheumatoid factor M05.79 [facility] [id number] [place] [address] 26378- 9217 November, Rheumatoid arthritis involving multiple sites with positive rheumatoid factor M05.79 [place] [id number] [place] [address] 70949- 8959 November, Rheumatoid arthritis involving multiple sites with positive rheumatoid factor M05.79 [place] [id number] [place] [address] 28774- 8932 Oct, Rheumatoid arthritis involving multiple sites with positive rheumatoid factor M05.79 [place] [id number] [place] [address] 90554- 9040 Oct, [place] [id number] [place] [address] 06228- 8422 Oct, Rheumatoid arthritis involving multiple sites with positive rheumatoid factor M05.79 [place] [id number] [place] [address] 33643- 8499 Oct, Rheumatoid arthritis involving multiple sites with positive rheumatoid factor M05.79 ; Type 2 diabetes mellitus with hyperglycemia, without long-term current use of insulin E11.65 ; Hyperlipidemia E78.5 and Other elevated white blood cell (WBC) count D72.828 [place] [address] [address] 3883 Oct, Chronic obstructive pulmonary disease, unspecified J44.9 [place] [address] [place] [address] 44144- 5213 Oct, Rheumatoid arthritis involving multiple sites with positive rheumatoid factor M05.79 [place] [address] [place] [address] 77661- 9567 Oct, Type 2 diabetes mellitus with hyperglycemia, without long- term current use of insulin E11.65 [place] [address] [address] 1995 Sep, [place] [id number] [place] [address] 75951- 0957 Sep, Rheumatoid arthritis involving multiple sites with positive rheumatoid factor M05.79 ; Visit for TB skin test Z11.1 and Psoriasis L40.9 [place] [id number] [place] [address] 43905- 2135 Sep, Type 2 diabetes mellitus with hyperglycemia, without long- term current use of insulin E11.65 ; Rheumatoid arthritis involving multiple sites with positive rheumatoid factor M05.79 ; Hyperlipidemia E78.5 ; Essential hypertension I10 ; Other elevated white blood cell (WBC) count D72.828 ; Primary insomnia F51.01 and Tobacco use Z72.0 [place] [address] 72777- 9129 Sep, [place] [address] 29122- 0051 Aug, Type 2 diabetes mellitus with hyperglycemia, without long- term current use of insulin E11.65 and Hyperlipidemia E78.5 [place] [id number] [place] [address] 79192- 6063 Jul, [place] [address] 78563- 3245 Jul, Rheumatoid arthritis involving multiple sites with positive rheumatoid factor M05.79 [place] [address] 92986- 0495 Jul, Rheumatoid arthritis involving multiple sites with positive rheumatoid factor M05.79 [place] [id number] [place] [address] 46321- 4830 Jun, Essential hypertension I10 and Hyperlipidemia E78.5 [place] [address] 66167- 7743 Jun, Chronic obstructive pulmonary disease, unspecified J44.9 [place] [address] 18383- 6782 Jun, [place] [address] 24804- 8304 May, Type 2 diabetes mellitus without complication E11.9 ; Rheumatoid arthritis involving multiple sites with positive rheumatoid factor M05.79 ; Psoriasis L40.9 and Essential hypertension I10 [facility] [id number] [address] May, Dental examination Z01.20 and Dental caries K02.9 [facility] [address] [place] [address] 45817- 6515 Apr, Type 2 diabetes mellitus without complication E11.9 ; Type 2 diabetes mellitus with hyperglycemia, without long-term current use of insulin E11.65 ; Idiopathic pulmonary fibrosis J84.112 ; Essential hypertension I10 ; Tobacco use Z72.0 ; Rheumatoid arthritis involving multiple sites with positive rheumatoid factor M05.79 ; Hyperlipidemia E78.5 and Chronic obstructive pulmonary disease, unspecified J44.9 [facility] [address] [address]- 9293 Apr, Dental examination Z01.20 [facility] [address] [address]- 8048 Apr, [facility] [id number] [place] [address] 63347- 2431 Apr, [facility] [id number] [place] [address] 27253- 3792 Apr, [facility] [address] [address]- 2195 Apr, [facility] [address] [address]- 3666 Apr, [facility] [address] [place] [address] 32290- 9938 Apr, Type 2 diabetes mellitus without complication E11.9 and Essential hypertension I10 [facility] [address] [address]- 8369 Mar, [facility] [id number] [place] [address] 80809- 9439 Mar, Rheumatoid arthritis involving multiple sites with positive rheumatoid factor M05.79 [facility] [address] [place] [address] 63947- 3346 Mar, Type 2 diabetes mellitus without complication E11.9 ; Essential hypertension I10 and Hyperlipidemia E78.5 [facility] [address] [place] [address] 96928- 7532 Mar, Rheumatoid arthritis involving multiple sites with positive rheumatoid factor M05.79 [facility] [id number] [place] [address] 30695- 8569 Mar, [place] [id number] [place] [address] 29147- 8060 Mar, Hyperlipidemia E78.5 ; Essential hypertension I10 and Type 2 diabetes mellitus without complication E11.9 [facility] [address] [place] [address] 94233- 5879 Feb, Rheumatoid arthritis involving multiple sites with positive rheumatoid factor M05.79 and Essential hypertension I10 [place] [address] [place] [address] 73673- 5376 Jan, Rheumatoid arthritis involving multiple sites with positive rheumatoid factor M05.79 [facility] [id number] [place] [address] 63122- 9197 Dec, Rheumatoid arthritis involving multiple sites with positive rheumatoid factor M05.79 [facility] [address] [place] [address] 33540- 5626 Dec, [facility] [id number] [place] [address] 44973- 5328 November, Rheumatoid arthritis involving multiple sites with positive rheumatoid factor M05.79 and Psoriasis L40.9 [facility] [id number] [place] [address] 59372- 2122 November, Hyperlipidemia E78.5 [facility] [id number] [place] [address] 33346- 2739 November, Type 2 diabetes mellitus without complication E11.9 [place] [id number] [place] [address] 66213- 7752 November, [place] [id number] [place] [address] 36823- 1145 November, Rheumatoid arthritis involving multiple sites with positive rheumatoid factor M05.79 ; Hyperlipidemia E78.5 ; Type 2 diabetes mellitus without complication E11.9 ; Idiopathic pulmonary fibrosis J84.112 and Tobacco use Z72.0 [place] [address] 87104- 9897 Oct, Essential hypertension I10 and Rheumatoid arthritis involving multiple sites with positive rheumatoid factor M05.[address] 378397- 6021 Sep, Rheumatoid arthritis involving multiple sites with positive rheumatoid factor M05.79 and Psoriasis L40.[address] 55490- 8099 Jul, Rheumatoid arthritis involving multiple sites with positive rheumatoid factor M05.79 [place] [id number] [place] [address] 20060- 4599 Jul, Idiopathic pulmonary fibrosis J84.112 [place] [id number] [place] [address] [id number] Jul, [place] [id number] [place] [address] 65736- 2810 Jul, Idiopathic pulmonary fibrosis J84.112 [place] [id number] [place] [address] 22525- 5015 Jul, Idiopathic pulmonary fibrosis J84.112 and Hypoxia R09.[address] 33878- 7010 Jul, Cough R05 and Idiopathic pulmonary fibrosis J84.112 [place] [id number] [place] [address] 23880- 6162 Apr, Type 2 diabetes mellitus without complication E11.9 ; Rheumatoid arthritis involving multiple sites with positive rheumatoid factor M05.79 ; Psoriasis L40.9 ; Hyperlipidemia E78.5 ; Idiopathic pulmonary fibrosis J84.112 and Essential hypertension I10 [facility] [address] [place] [address] 35177- 4996 Feb, [facility] [address] [address]- 5164 Feb, [facility] [id number] [place] [address] 89640- 7260 Dec, Right ankle gives way M25.371 [facility] [id number] [place] [address] 91878- 6966 November, [facility] [id number] [place] [address] 03958- 6125 November, Wrist pain, left M25.532 [place] [id number] [place] [address] 52974- 3563 Sep, Psoriasis L40.9 [facility] [id number] [place] [address] 21262- 3092 Sep, COPD exacerbation J44.1 [facility] [id number] [place] [address] 89358- 6691 Aug, [facility] [address] [place] [address] 13872- 2582 Aug, Rheumatoid arthritis involving multiple sites with positive rheumatoid factor M05.79 and Hyperlipidemia E78.5 [facility] [address] [address]- 5193 Aug, [facility] [address] [place] [address] 45303- 8434 Aug, Psoriasis L40.9 ; Rheumatoid arthritis involving multiple sites with positive rheumatoid factor M05.79 and Essential hypertension I10 [facility] [address] [address]- 7255 Jul, [facility] [id number] [address]- 3581 Jul, [facility] [id number] [place] [address] 98314- 4919 Jul, Type 2 diabetes mellitus without complication E11.9 ; Hyperlipidemia E78.5 and Rheumatoid arthritis involving multiple sites with positive rheumatoid factor M05.79 [facility] [id number] [place] [address] 76795- 9173 Jun, [facility] [id number] [place] [address] 47143- 7787 Apr, [facility] [id number] [place] [address] 53794- 2202 Mar, [facility] [id number] [place] [address] 49170- 2301 Mar, [facility] [id number] [place] [address] 04456- 8439 Mar, Rheumatoid arthritis 714.0 ; Other psoriasis 696.1 and Cellulitis, axillary fold 682.3 [facility] [id number] [place] [address] 44997- 4538 Jan, [facility] [id number] [place] [address] 79601- 8128 Dec, [facility] [id number] [place] [address] 44537- 2195 Dec, Other and unspecified hyperlipidemia 272.4 ; Other psoriasis 696.1 and Diabetes mellitus without mention of complication, type II or unspecified type, not stated as uncontrolled 250.00 [facility] [id number] [place] [address] 24334- 2222 Dec, [facility] [id number] [place] [address] 36145- 2815 November, [facility] [id number] [place] [address] 84543- 1764 Oct, [facility] [place] [facility] [address] [id number] [place] [address]- 2546 13 Oct, 2014 [facility] [place] [facility] [address] [id number] [place] [address]- 6067 24 Sep, 2014 [facility] [place] [facility] [address] [id number] [place] [address]- 2546 24 Sep, 2014 [facility] [place] [facility] [address] [id number] [place] [address]- 8776 20 Sep, 2014 [facility] [place] [facility] [address] [id number] [place] [address]- 7416 20 Sep, 2014 [facility] [place] [facility] [address] [id number] [place] [address]- 8154 13 Sep, 2014 [facility] [place] [facility] [address] [id number] [place] [address]- 2376 Sep, [facility] [place] [facility] [address] [id number] [place] [address]- 7559 Sep, [facility] [place] [facility] [address] [id number] [place] [address]- 6486 Sep, [facility] [place] [facility] [address] [id number] [place] [address]- 3596 Sep, [facility] [place] [facility] [address] [id number] [place] [address]- 6766 Sep, [facility] [place] [facility] [address] [id number] [place] [address]- 3568 Jul, [facility] [place] [facility] [address] [id number] [place] [address]- 4712 Jul, [facility] [place] [facility] [address] [id number] [place] [address]- 7876 Jul, [facility] [place] [facility] [address] [id number] [place] [address]- 2546 16 Jul, 2014 [facility] [place] [facility] [address] [id number] [place] [address]- 4567 15 Jul, 2014 [facility] [place] [facility] [address] [id number] [place] [address]- 5656 15 Jul, 2014 [facility] [place] [facility] [address] [id number] [place] [address]- 5676 Jul, [facility] [place] [facility] [address] [id number] [place] [address]- 7252 Jul, [facility] [place] [facility] [address] [id number] [place] [address]- 4495 Jun, [facility] [place] [facility] [address] [id number] [place] [address]- 5414 Jun, [facility] [place] [facility] [address] [id number] [place] [address]- 0528 Jun, [facility] [place] [facility] [address] [id number] [place] [address]- 1537 Jun, [facility] [place] [facility] [address] [id number] [place] [address]- 5621 Jun, [facility] [place] [facility] [address] [id number] [place] [address]- 4703 Jun, [facility] [place] [facility] [address] [id number] [place] [address]- 0715 Apr, [facility] [place] [facility] [address] [id number] [address]- 0802 Apr, [facility] [place] [facility] [address] [id number] [address]- 7501 Mar, [facility] [place] [facility] [address] [id number] [place] [address]- 0925 Mar, [facility] [place] [facility] [address] [id number] [address]- 2700 Feb, [facility] [place] [facility] [address] [id number] [address]- 7207 Feb, [facility] [place] [facility] [address] [id number] [place]- 5320 Jan, [facility] [place] [facility] [address] [id number] [place] [address]- 5605 Jan, [facility] [place] [facility] [address] [id number] [place] [address]- 0404 Jan, [facility] [place] [facility] [address] [id number] [place] [address]- 3784 Jan, [facility] [place] [facility] [address] [id number] [place] [address]- 8041 Jan, [facility] [place] [facility] [address] [id number] [place] [address]- 9179 Dec, [facility] [place] [facility] [address] [id number] [place] [address]- 3352 Dec, [facility] [place] [facility] [address] [id number] [place] [address]- 6328 Dec, [facility] [place] [facility] [address] [id number] [place] [address]- 1232 Dec, [facility] [place] [facility] [address] [id number] [place] [address]- 5031 November, [facility] [place] [facility] [address] [id number] [place] [address]- 2315 November, [facility] [place] [facility] [address] [id number] [place] [address]- 8113 Oct, [facility] [place] [facility] [address] [id number] [place] [address]- 0220 Oct, [facility] [place] [facility] [address] [id number] [place] [address]- 0753 Sep, [facility] [place] [facility] [address] [id number] [place] [address]- 6237 Sep, [facility] [place] [facility] [address] [id number] [place] [address]- 3212 Sep, [facility] [place] [facility] [address] [id number] [place] [address]- 6886 Sep, [facility] [place] [facility] [address] [id number] [place] [address]- 5055 Aug, [facility] [place] [facility] [address] [id number] [place] [address]- 1850 Aug, [facility] [place] [facility] [address] [id number] [place] [address]- 5990 Aug, [facility] [place] [facility] [address] [id number] [place] [address]- 1480 Aug, [facility] [place] [facility] [address] [id number] [place] [address]- 9292 Aug, [facility] [place] [facility] [address] [id number] [place] [address]- 3546 Aug, [facility] [place] [facility] [address] [id number] [place] [address]- 2065 Jul, [facility] [place] [facility] [address] [id number] [place] [address]- 2687 Jul, [facility] [place] [facility] [address] [id number] [place] [address]- 2476 Jul, [facility] [place] [facility] [address] [id number] [place] [address]- 9106 Jul, [facility] [place] [facility] [address] [id number] [place] [address]- 2455 Jul, [facility] [place] [facility] [address] [id number] [place] [address]- 5243 Jul, [facility] [place] [facility] [address] [id number] [place] [address]- 3007 Jul, [facility] [place] [facility] [address] [id number] [place] [address]- 2765 Jul, [facility] [place] [facility] [address] [id number] [place] [address]- 2138 Jun, [facility] [address] [id number] [place] [address]- 1557 Jun, [facility] [place] [facility] [address] [id number] [place] 6351 Jun, [facility] [place] [facility] [address] [id number] [place] [address]- 4326 Jun, [facility] [place] [facility] [address] [id number] [place] [address]- 6490 Jun, [facility] [place] [facility] [address] [id number] [place] [address]- 1853 Jun, [facility] [place] [facility] [address] [id number] [place] [address]- 4432 May, [facility] [place] [facility] [address] [id number] [place] [address]- 6784 May, [facility] [place] [facility] [address] [id number] [place] [address]- 8987 May, [facility] [place] [facility] [address] [id number] [place] [address]- 9934 May, [facility] [place] [facility] [address] [facility] [id number] [place] [address]- 2904 Apr, [facility] [place] [facility] [address] [id number] [place] [address]- 4000 Apr, [facility] [place] [facility] [address] [id number] [address]- 6871 08 Apr, 2013 [facility] [place] [facility] [address] [id number] [place] [address]- 7839 07 Apr, 2013 [facility] [place] [facility] [address] [id number] [place] [address]- 4338 25 Mar, 2013 [facility] [place] [facility] [address] [id number] [place] [address]- 0763 23 Mar, 2013 [facility] [place] [facility] [address] [id number] [place] [address]- 2570 16 Mar, 2013 [facility] [address] [id number] [place] [address]- 2426 12 Mar, 2013 [facility] [place] [facility] [address] [id number] [place] [address]- 0600 09 Mar, 2013 [facility] [place] [facility] [address] [id number] [place] [address]- 6873 Mar, [facility] [place] [facility] [address] [id number] [place] [address]- 6777 Feb, [facility] [place] [facility] [address] [id number] [place] [address]- 3371 Feb, [facility] [place] [facility] [address] [id number] [place] [address]- 7541 Feb, [facility] [address] [id number] [place] [address] Feb, [facility] [place] [facility] [address] [id number] [place] [address] Jan, [facility] [place] [facility] [address] [id number] [place] [address] Dec, [facility] [place] [facility] [address] [id number] [place] [address] November, [facility] [place] [facility] [address] [id number] [place] [address] Sep, [facility] [place] [facility] [address] [id number] [place] [address] Aug, [facility] [place] [facility] [address] [id number] [place] [address] Aug, [facility] [place] [facility] [address] [id number] [place] [address] Jul, [facility] [place] [facility] [address] [id number] [place] [address] Jul, [facility] [place] [facility] [address] [id number] [place] [address] Jun, [facility] [place] [facility] [address] [id number] [place] [address] Jun, [facility] [place] [facility] [address] [id number] [place] [address] Jun, [facility] [place] [facility] [address] [id number] [place] [address] Jun, [facility] [place] [facility] [address] [id number] [place] [address] Jun, [facility] [place] [facility] [address] [id number] [place] [address] Jun, [facility] [place] [facility] [address] [id number] [place] [address] 30 May, 2012 [facility] [place] [facility] [address] [id number] [place] [address] 29 May, 2012 [facility] [place] [facility] [address] [id number] [place] [address] 28 May, 2012 [facility] [place] [facility] [address] [id number] [place] [address]- [id number] 28 May, 2012 [facility] [place] [facility] [address] [id number] [place] [address] May, [facility] [place] [facility] [address] [id number] [place] [address] 27 May, 2012 [facility] [place] [facility] [address] [id number] [place] [address] 15 May, 2012 [facility] [place] [facility] [address] [id number] [place] [address] 15 May, 2012 [facility] [place] [facility] [address] [id number] [place] [address] 14 May, 2012 [facility] [place] [facility] [address] [id number] [place] [address] 14 May, 2012 [facility] [place] [facility] [address] [id number] [place] [address] May, [facility] [place] [facility] [address] [id number] [place] [address] 12 May, 2012 [facility] [place] [facility] [address] [id number] [place] [address] May, [facility] [place] [facility] [address] [id number] [place] [address] 10 May, 2012 [facility] [place] [facility] [address] [id number] [place] [address] May, [facility] [place] [facility] [address] [id number] [place] [address] Apr, [facility] [place] [facility] [address] [id number] [place] [address] Apr, [facility] [place] [facility] [address] [id number] [place] [address] Apr, [facility] [place] [facility] [address] [facility] [id number] [place] [address] Apr, [facility] [place] [facility] [address] [facility] [id number] [place] [address] Apr, [facility] [place] [facility] [address] [id number] [place] [address] Apr, [facility] [place] [facility] [address] [id number] [place] [address] Apr, [facility] [place] [facility] [address] [id number] [place] [address] Apr, [facility] [place] [facility] [address] [facility] [id number] [place] [address] Apr, [facility] [place] [facility] [address] [id number] [place] [address] Apr, [facility] [address] [id number] [place] [address] 25 Mar, 2012 [facility] [address] [id number] [place] [address] 24 Mar, 2012 [facility] [address] [facility] [id number] [place] [address] 14 Mar, 2012 [facility] [address] [id number] [place] [address] 04 Mar, 2012 [facility] [address] [id number] [place] [address] Feb, [facility] [address] [facility] [id number] [place] [address] Feb, [facility] [address] [facility] [id number] [place] [address] 15 Feb, 2012 [facility] [address] [facility] [id number] [address] 14 Feb, 2012 [facility] [address] [facility] [id number] [place] [address] Feb, [facility] [address] [facility] [id number] [place] [address] November, [facility] [address] [facility] [id number] [place] [address] Aug, [facility] [address] [facility] [id number] [place] [address] May, [facility] [address] [facility] [id number] [place] [address] May, [facility] [address] [facility] [id number] [place] [address] Apr, [facility] [address] [facility] [id number] [place] [address] 17 Mar, 2009 IMMUNIZATIONS No Known Immunizations SOCIAL HISTORY Never Assessed REASON FOR VISIT Injection- SIMRAN Arguello PLAN OF CARE Activity Details Follow Up 2 Weeks Reason:Humira Injection VITAL SIGNS MEDICATIONS Medication Instructions Dosage Frequency Start Date End Date Duration Status Hydroxychloroquine Sulfate 200 mg Orally Once a day 2 tablet with food or milk 24h 30 days Active RESULTS No Results PROCEDURES Procedure Date Ordered Result Body Site HUMIRA (PT'S OWN) November 14, 2017 THER/PROPH/DIAG INJ, SC/IM November 14, 2017 INSTRUCTIONS MEDICATIONS ADMINISTERED No Known Medications [...]
--- OUTSIDE RECORDS SUMMARY | 2018-09-03 14:53 | XMS REPORT ---
Author Author GENEVIEVE JOSE F [facility] Address [address] [place] [address] Care Team Providers Care Addictions Therapist Name Role Phone GENEVIEVESANTOSH LEMAHANY Unavailable PROBLEMS Type Condition ICD9-CM Code IYV44-CM Code Onset Dates Condition Status SNOMED Code Problem Psoriasis L40.9 Active 2134295 Problem Rheumatoid arthritis involving multiple sites with positive rheumatoid factor M05.79 Active 063379234 Problem Vision loss, left eye H54.62 Active 83731739 Problem Primary insomnia F51.01 Active 1312280 Problem Other elevated white blood cell (WBC) count D72.828 Active 211796112 Problem Essential hypertension I10 Active 97746727 Problem Hematochezia K92.1 Active 843195647 Problem Type 2 diabetes mellitus with hyperglycemia, without long-term current use of insulin E11.65 Active 16839303 Problem Tobacco use Z72.0 Active 022491586 Problem Renal cyst, right N28.1 Active 52783469 Problem Idiopathic pulmonary fibrosis J84.112 Active 038953481 Problem Chronic obstructive pulmonary disease, unspecified J44.9 Active 78697893 Problem Lactic acidosis E87.2 Active 02599410 Problem Hyperlipidemia E78.5 Active 79324151 ALLERGIES No Information ENCOUNTERS Encounter Location Date Diagnosis [facility] [id number], [place] [address] Jan, [facility] [id number], [place] [address] November, [facility] [id number] [place] [address] 80230- 4578 November, Rheumatoid arthritis involving multiple sites with positive rheumatoid factor M05.79 [facility] [id number], [place] [address] 1056 November, Rheumatoid arthritis involving multiple sites with positive rheumatoid factor M05.79 [place] [address], [place] [address] 5[address] November, Rheumatoid arthritis involving multiple sites with positive rheumatoid factor M05.79 [place] [address] [place] [address] 33780- 5222 Oct, Rheumatoid arthritis involving multiple sites with positive rheumatoid factor M05.79 [place] [id number] [place] [address] 25903- 3090 Oct, [place] [address] [place] [address] 57852- 6811 Oct, Rheumatoid arthritis involving multiple sites with positive rheumatoid factor M05.79 [place] [id number] [place] [address] 97385- 1378 Oct, Rheumatoid arthritis involving multiple sites with positive rheumatoid factor M05.79 ; Type 2 diabetes mellitus with hyperglycemia, without long-term current use of insulin E11.65 ; Hyperlipidemia E78.5 and Other elevated white blood cell (WBC) count D72.828 [place] [address] [place] [address] 05520- 3825 Oct, Chronic obstructive pulmonary disease, unspecified J44.9 [place] [address] [place] [address] 80039- 7355 Oct, Rheumatoid arthritis involving multiple sites with positive rheumatoid factor M05.79 [place] [address] [place] [address] 82669- 8869 Oct, Type 2 diabetes mellitus with hyperglycemia, without long- term current use of insulin E11.65 [place] [address], [place] [address]- 0032 Sep, [place] [id number] [place] [address] 33357- 7721 Sep, Rheumatoid arthritis involving multiple sites with positive rheumatoid factor M05.79 ; Visit for TB skin test Z11.1 and Psoriasis L40.9 [place] [id number] [place] [address] 61864- 8435 Sep, Type 2 diabetes mellitus with hyperglycemia, without long- term current use of insulin E11.65 ; Rheumatoid arthritis involving multiple sites with positive rheumatoid factor M05.79 ; Hyperlipidemia E78.5 ; Essential hypertension I10 ; Other elevated white blood cell (WBC) count D72.828 ; Primary insomnia F51.01 and Tobacco use Z72.0 [place] [id number] [place] [address] 06800- 7466 Sep, [place] [id number] [place] [address] 50721- 0682 Aug, Type 2 diabetes mellitus with hyperglycemia, without long- term current use of insulin E11.65 and Hyperlipidemia E78.5 [place] [id number] [place] [address] 75464- 5315 Jul, [place] [address] 22208- 8027 Jul, Rheumatoid arthritis involving multiple sites with positive rheumatoid factor M05.79 [place] [address] 97059- 1180 Jul, Rheumatoid arthritis involving multiple sites with positive rheumatoid factor M05.79 [place] [id number] [place] [address] 66193- 5000 Jun, Essential hypertension I10 and Hyperlipidemia E78.5 [place] [id number] [place] [address] 70257- 2926 Jun, Chronic obstructive pulmonary disease, unspecified J44.9 [facility] [id number] [place] [address] 01997- 8387 Jun, [place] [id number] [place] [address] 58297- 3949 May, Type 2 diabetes mellitus without complication E11.9 ; Rheumatoid arthritis involving multiple sites with positive rheumatoid factor M05.79 ; Psoriasis L40.9 and Essential hypertension I10 [facility] [id number] [place] [address] [id number] May, Dental examination Z01.20 and Dental caries K02.9 [facility] [address], [place] [address]- 7248 Apr, Type 2 diabetes mellitus without complication E11.9 ; Type 2 diabetes mellitus with hyperglycemia, without long-term current use of insulin E11.65 ; Idiopathic pulmonary fibrosis J84.112 ; Essential hypertension I10 ; Tobacco use Z72.0 ; Rheumatoid arthritis involving multiple sites with positive rheumatoid factor M05.79 ; Hyperlipidemia E78.5 and Chronic obstructive pulmonary disease, unspecified J44.9 [facility] [address], [place] [address] 7869 Apr, Dental examination Z01.20 [facility] [address], [place] [address]- 0540 Apr, [facility] [id number] [place] [address] 96100- 6553 Apr, [facility] [address] [place] [address] 22517- 9378 Apr, [facility] [id number] [place] [address] 53959- 3937 Apr, [facility] [address], [place] [address]- 6707 Apr, [facility] [address], [place] [address]- 3011 Apr, Type 2 diabetes mellitus without complication E11.9 and Essential hypertension I10 [facility] [address], [place] [address]- 7406 Mar, [facility] [id number], [place] [address]- 7896 Mar, Rheumatoid arthritis involving multiple sites with positive rheumatoid factor M05.79 [facility] [address], [place] [address]- 8122 Mar, Type 2 diabetes mellitus without complication E11.9 ; Essential hypertension I10 and Hyperlipidemia E78.5 [facility] [address], [place] [address]- 2701 Mar, Rheumatoid arthritis involving multiple sites with positive rheumatoid factor M05.79 [facility] [address], [place] [address] 1936 Mar, [facility] [id number] [place] [address] 27963- 3041 Mar, Hyperlipidemia E78.5 ; Essential hypertension I10 and Type 2 diabetes mellitus without complication E11.9 [facility] [address] [place] [address] 00859- 6896 Feb, Rheumatoid arthritis involving multiple sites with positive rheumatoid factor M05.79 and Essential hypertension I10 [facility] [id number] [place] [address] 92706- 8574 Jan, Rheumatoid arthritis involving multiple sites with positive rheumatoid factor M05.79 [facility] [id number] [place] [address] 69583- 6447 Dec, Rheumatoid arthritis involving multiple sites with positive rheumatoid factor M05.79 [facility] [id number] [place] [address] 30357- 4310 Dec, [facility] [id number] [place] [address] 58436- 0613 November, Rheumatoid arthritis involving multiple sites with positive rheumatoid factor M05.79 and Psoriasis L40.9 [facility] [address], [place] [address]- 3428 November, Hyperlipidemia E78.5 [facility] [address] [place] [address] 47735- 8430 November, Type 2 diabetes mellitus without complication E11.9 [facility] [address], [place] [address]- 3232 November, [facility] [id number] [place] [address] 51584- 4613 November, Rheumatoid arthritis involving multiple sites with positive rheumatoid factor M05.79 ; Hyperlipidemia E78.5 ; Type 2 diabetes mellitus without complication E11.9 ; Idiopathic pulmonary fibrosis J84.112 and Tobacco use Z72.0 [place] [id number] [place] [address] 28058- 3088 Oct, Essential hypertension I10 and Rheumatoid arthritis involving multiple sites with positive rheumatoid factor M05.79 [place] [address] 29685- 2991 Sep, Rheumatoid arthritis involving multiple sites with positive rheumatoid factor M05.79 and Psoriasis L40.[address] 87308- 9690 Jul, Rheumatoid arthritis involving multiple sites with positive rheumatoid factor M05.79 [address] [address] 87679- 4016 Jul, Idiopathic pulmonary fibrosis J84.112 [address] [address] [id number] Jul, [place] [address] 78843- 9970 Jul, Idiopathic pulmonary fibrosis J84.112 [address] [address] 37699- 7314 Jul, Idiopathic pulmonary fibrosis J84.112 and Hypoxia R09.02 [id number] [place] [address] 56457- 3388 Jul, Cough R05 and Idiopathic pulmonary fibrosis J84.112 [place] [id number] [place] [address] 06606- 9620 Apr, Type 2 diabetes mellitus without complication E11.9 ; Rheumatoid arthritis involving multiple sites with positive rheumatoid factor M05.79 ; Psoriasis L40.9 ; Hyperlipidemia E78.5 ; Idiopathic pulmonary fibrosis J84.112 and Essential hypertension I10 [place] [address] 10279- 9805 Feb, [facility] [address], [place] [address]- 9898 Feb, [facility] [id number] [place] [address] 45760- 5393 Dec, Right ankle gives way M25.371 [facility] [address] [place] [address] 28792- 0931 November, [facility] [id number] [place] [address] 31844- 4499 November, Wrist pain, left M25.532 [facility] [id number] [place] [address] 80575- 1750 Sep, Psoriasis L40.9 [facility] [id number] [place] [address] 39565- 8926 Sep, COPD exacerbation J44.1 [facility] [id number] [place] [address] 70852- 9484 Aug, [facility] [address] [place] [address] 04123- 9148 Aug, Rheumatoid arthritis involving multiple sites with positive rheumatoid factor M05.79 and Hyperlipidemia E78.5 [facility] [address], [place] [address]- 1568 Aug, [facility] [address] [place] [address] 43049- 3819 Aug, Psoriasis L40.9 ; Rheumatoid arthritis involving multiple sites with positive rheumatoid factor M05.79 and Essential hypertension I10 [facility] [address] [place] [address] 17924- 3404 Jul, [facility] [address] [place] [address] 69534- 7097 Jul, [facility] [address], [place] [address]- 7441 Jul, Type 2 diabetes mellitus without complication E11.9 ; Hyperlipidemia E78.5 and Rheumatoid arthritis involving multiple sites with positive rheumatoid factor M05.79 [facility] [id number] [place] [address] 20777- 5299 Jun, [facility] [id number] [place] [address] 68083- 9273 Apr, [facility] [id number] [place] [address] 60376- 9494 Mar, [facility] [address] 12075- 6640 Mar, [facility] [address] 67731- 5941 Mar, Rheumatoid arthritis 714.0 ; Other psoriasis 696.1 and Cellulitis, axillary fold 682.3 [place] [id number] [place] [address] 39837- 4109 Jan, [facility] [id number] [place] [address] 30659- 4624 Dec, [facility] [id number] [place] [address] 82588- 0242 Dec, Other and unspecified hyperlipidemia 272.4 ; Other psoriasis 696.1 and Diabetes mellitus without mention of complication, type II or unspecified type, not stated as uncontrolled 250.00 [facility] [id number] [place] [address] 40809- 6991 Dec, [facility] [id number] [place] [address] 89115- 9347 November, [facility] [id number] [place] [address] 04410- 5760 Oct, [facility] [id number] [place] [address] 71403- 3308 Oct, [facility] [id number] [place] [address] 10140- 0073 Sep, [facility] [place] [facility] [address] [id number] [place] [address]- 0134 24 Sep, 2014 [facility] [place] [facility] [address] [id number] [place] [address]- 4222 20 Sep, 2014 [facility] [place] [facility] [address] [id number] [place] [address]- 2080 20 Sep, 2014 [facility] [place] [facility] [address] [id number] [place] [address]- 7032 13 Sep, 2014 [facility] [place] [facility] [address] [id number] [place] [address]- 5465 Sep, [facility] [place] [facility] [address] [id number] [place] [address]- 7491 Sep, [facility] [place] [facility] [address] [id number] [place] [address]- 2974 Sep, [facility] [place] [facility] [address] [id number] [place] [address]- 8737 Sep, [facility] [place] [facility] [address] [id number] [place] [address]- 3030 Sep, [facility] [place] [facility] [address] [id number] [place] [address]- 7599 Jul, [facility] [place] [facility] [address] [id number] [place] [address]- 8767 Jul, [facility] [place] [facility] [address] [id number] [place] [address]- 1067 Jul, [facility] [place] [facility] [address] [id number] [place] [address]- 4264 Jul, [facility] [place] [facility] [address] [id number] [place] [address]- 6407 15 Jul, 2014 [facility] [place] [facility] [address] [id number] [place] [address]- 1192 15 Jul, 2014 [facility] [place] [facility] [address] [id number] [place] [address]- 7386 Jul, [facility] [place] [facility] [address] [id number] [place] [address]- 0658 Jul, [facility] [place] [facility] [address] [id number] [place] [address]- 4786 Jun, [facility] [place] [facility] [address] [id number] [place] [address]- 7950 Jun, [facility] [place] [facility] [address] [id number] [place] [address]- 6473 Jun, [facility] [place] [facility] [address] [id number] [place] [address]- 7711 Jun, [facility] [place] [facility] [address] [id number] [place] [address]- 9051 Jun, [facility] [place] [facility] [address] [id number] [place] [address]- 5635 Jun, [facility] [place] [facility] [address] [id number] [place] [address]- 6586 Apr, [facility] [place] [facility] [address] [id number] [place] [address]- 8580 Apr, [facility] [place] [facility] [address] [id number] [place] [address]- 0514 Mar, [facility] [place] [facility] [address] [id number] [place] [address]- 8923 Mar, [facility] [place] [facility] [address] [id number] [place] [address]- 7006 Feb, [facility] [place] [facility] [address] [id number] [place] [address]- 6969 Feb, [facility] [place] [facility] [address] [id number] [place] [address]- 9936 Jan, [facility] [place] [facility] [address] [id number] [place] [address]- 0785 Jan, [facility] [place] [facility] [address] [id number] [place] [address]- 4638 Jan, [facility] [address] [id number] [place] [address]- 2542 Jan, [facility] [place] [facility] [address] [id number] [place] [address]- 9295 Jan, [facility] [place] [facility] [address] [id number] [place] [address]- 7197 Dec, [facility] [place] [facility] [address] [id number] [place] [address]- 6038 Dec, [facility] [place] [facility] [address] [id number] [place] [address]- 1924 Dec, [facility] [place] [facility] [address] [id number] [place] [address]- 2789 Dec, [facility] [place] [facility] [address] [id number] [place] [address]- 9995 November, [facility] [place] [facility] [address] [id number] [place] [address]- 6673 November, [facility] [place] [facility] [address] [id number] [place] [address]- 7655 Oct, [facility] [place] [facility] [address] [id number] [place] [address]- 1731 Oct, [facility] [place] [facility] [address] [id number] [place] [address]- 6629 Sep, [facility] [place] [facility] [address] [id number] [place] [address]- 8320 Sep, [facility] [place] [facility] [address] [id number] [place] [address]- 3181 Sep, [facility] [place] [facility] [address] [id number] [place] [address]- 2546 Sep, [facility] [place] [facility] [address] [id number] [place] [address]- 1912 Aug, [facility] [place] [facility] [address] [id number] [place] [address]- 1282 Aug, [facility] [place] [facility] [address] [id number] [place] [address]- 2996 Aug, [facility] [place] [facility] [address] [id number] [place] [address]- 7856 Aug, [facility] [place] [facility] [address] [id number] [place] [address]- 9792 Aug, [facility] [place] [facility] [address] [id number] [place] [address]- 7493 Aug, [facility] [place] [facility] [address] [id number] [place] [address]- 3451 Jul, [facility] [place] [facility] [address] [id number] [place] [address]- 0664 Jul, [facility] [place] [facility] [address] [id number] [place] [address]- 8584 Jul, [facility] [place] [facility] [address] [id number] [place] [address]- 7437 Jul, [facility] [place] [facility] [address] [id number] [place] [address]- 0995 Jul, [facility] [place] [facility] [address] [id number] [place] [address]- 7033 Jul, [facility] [place] [facility] [address] [id number], [place] [address]- 9248 Jul, [facility] [place] [facility] [address] [id number] [place] [address]- 7313 Jul, [facility] [place] [facility] [address] [id number] [place] [address]- 7354 Jun, [facility] [place] [facility] [address] [id number] [place] [address]- 3371 Jun, [facility] [place] [facility] [address] [id number] [place] [address]- 4076 Jun, [facility] [address] [id number] [place] [address]- 0752 Jun, [facility] [place] [facility] [address] [id number] [place] [address]- 2533 Jun, [facility] [place] [facility] [address] [id number] [place] [address]- 8600 Jun, [facility] [place] [facility] [address] [id number] [place] [address]- 3026 May, [facility] [place] [facility] [address] [id number] [place] [address]- 7176 May, [facility] [place] [facility] [address] [id number] [place] [address]- 7924 May, [facility] [place] [facility] [address] [id number] [place] [address]- 3833 May, [facility] [place] [facility] [address] [id number] [place] [address]- 5569 Apr, [facility] [place] [facility] [address] [id number] [place] [address]- 6743 Apr, [facility] [place] [facility] [address] [id number] [place] [address]- 6655 08 Apr, 2013 [facility] [place] [facility] [address] [id number] [place] [address]- 1215 07 Apr, 2013 [facility] [place] [facility] [address] [id number] [place] [address]- 1663 25 Mar, 2013 [facility] [place] [facility] [address] [id number] [place] [address]- 1078 23 Mar, 2013 [facility] [place] [facility] [address] [id number] [place] [address]- 4984 16 Mar, 2013 [facility] [place] [facility] [address] [id number] [place] [address]- 0141 Mar, [facility] [place] [facility] [address] [id number] [place] [address]- 6073 Mar, [facility] [address] [id number] [place] [address]- 4748 Mar, [facility] [address] [id number] [place] [address]- 7119 Feb, [facility] [place] [facility] [address] [id number] [place] [address]- 3888 Feb, [facility] [address] [id number] [place] [address] Feb, [facility] [address] [id number] [place] [address] Feb, [facility] [address] [id number] [place] [address] Jan, [facility] [address] [id number] [place] [address] Dec, [facility] [address] [id number] [place] [address] November, [facility] [address] [id number] [place] [address] Sep, [facility] [address] [id number] [place] [address] Aug, [facility] [address] [id number], [place] [address] Aug, [facility] [place] [facility] [address] [id number] [place] [address] Jul, [facility] [place] [facility] [address] [id number] [place] [address] Jul, [facility] [place] [facility] [address] [id number] [place] [address] Jun, [facility] [place] [facility] [address] [id number], [place] [address] Jun, [facility] [place] [facility] [address] [id number] [place] [address] Jun, [facility] [place] [facility] [address] [id number] [place] [address] Jun, [facility] [place] [facility] [address] [facility] [id number] [place] [address] Jun, [facility] [place] [facility] [address] [id number] [place] [address] 06 Jun, 2012 [facility] [place] [facility] [address] [id number] [place] [address] 30 May, 2012 [facility] [place] [facility] [address] [id number] [place] [address] 29 May, 2012 [facility] [place] [facility] [address] [id number] [address] 28 May, 2012 [facility] [place] [facility] [address] [id number] [place] [address] 28 May, 2012 [facility] [place] [facility] [address] [facility] [id number] [place] [address] 27 May, 2012 [facility] [place] [facility] [address] [facility] [id number] [place] [address] 27 May, 2012 [facility] [place] [facility] [address] [facility] [id number] [place] [address] 15 May, 2012 [facility] [place] [facility] [address] [id number] [place] [address] 15 May, 2012 [facility] [place] [facility] [address] [id number] [place] [address] 14 May, 2012 [facility] [place] [facility] [address] [facility] [id number] [place] [address] 14 May, 2012 [facility] [place] [facility] [address] [facility] [id number] [place] [address] 12 May, 2012 [facility] [place] [facility] [address] [id number] [place] [address] May, [facility] [place] [facility] [address] [id number] [place] [address] May, [facility] [place] [facility] [address] [id number] [place] [address] May, [facility] [place] [facility] [address] [id number] [place] [address] May, [facility] [place] [facility] [address] [id number] [place] [address] Apr, [facility] [place] [facility] [address] [id number] [place] [address] Apr, [facility] [place] [facility] [address] [id number] [place] [address] Apr, [facility] [place] [facility] [address] [id number] [place] [address] Apr, [facility] [place] [facility] [address] [id number] [place] [address] Apr, [facility] [place] [facility] [address] [id number] [place] [address] Apr, [facility] [place] [facility] [address] [id number] [place] [address] Apr, [facility] [place] [facility] [address] [id number] [place] [address] Apr, [facility] [place] [facility] [address] [id number] [place] [address] Apr, [facility] [place] [facility] [address] [id number] [place] [address] Apr, [facility] [place] [facility] [address] [id number] [place] [address] Mar, [facility] [place] [facility] [address] [id number] [place] [address] 24 Mar, 2012 [facility] [address] [id number] [address] 14 Mar, 2012 [facility] [id number], [place] [address] Mar, [facility] [id number], [place] [address] Feb, [facility] [id number], [place] [address] Feb, [facility] [address] [facility] [id number], [place] [address] Feb, [facility] [id number], [place] [address] Feb, [facility] [id number], [place] [address] Feb, [facility] [id number], [place] [address] November, [facility] [id number], [place] [address] Aug, [facility] [id number], [place] [address] May, [facility] [id number], [place] [address] May, [facility] [address] [id number] [address] Apr, [facility] [address] [id number], [place] [address] Mar, IMMUNIZATIONS No Known Immunizations SOCIAL HISTORY Never Assessed REASON FOR VISIT Lab (walk-in) PLAN OF CARE VITAL SIGNS MEDICATIONS Unknown Medications RESULTS No Results PROCEDURES Procedure Date Ordered Result Body Site LAB NOT BILLED BY [facility] November 02, 2017 INSTRUCTIONS MEDICATIONS ADMINISTERED No Known Medications [...]
--- OUTSIDE RECORDS SUMMARY | 2018-09-03 14:53 | XMS REPORT ---
Author Author RILEY SCHRADER Organization [facility] Address [address] [place] [address] Care Team Providers Care Manager Acquisition Name Role Phone RILEY SCHRADER Unavailable PROBLEMS Type Condition ICD9-CM Code [id number] Code Onset Dates Condition Status SNOMED Code Problem Psoriasis L40.9 Active 6081900 Problem Rheumatoid arthritis involving multiple sites with positive rheumatoid factor M05.79 Active 104254250 Problem Vision loss, left eye H54.62 Active 40179675 Problem Primary insomnia F51.01 Active 7580851 Problem Other elevated white blood cell (WBC) count D72.828 Active 963798710 Problem Essential hypertension I10 Active 55167565 Problem Hematochezia K92.1 Active 436645414 Problem Type 2 diabetes mellitus with hyperglycemia, without long-term current use of insulin E11.65 Active 94729252 Problem Tobacco use Z72.0 Active 923604550 Problem Renal cyst, right N28.1 Active 30516845 Problem Idiopathic pulmonary fibrosis J84.112 Active 193041904 Problem Chronic obstructive pulmonary disease, unspecified J44.9 Active 10928601 Problem Lactic acidosis E87.2 Active 21879328 Problem Hyperlipidemia E78.5 Active 61804990 ALLERGIES No Information ENCOUNTERS Encounter Location Date Diagnosis [facility] [id number] [address] Feb, [facility] [address] [address] Jan, [facility] [id number] [place] [address] 99163- 8947 Jan, [facility] [address] [address] November, [facility] [address] [place] [address] 97165- 6480 November, Rheumatoid arthritis involving multiple sites with positive rheumatoid factor M05.79 [facility] [id number] [place] [address] 40680- 6274 November, Rheumatoid arthritis involving multiple sites with positive rheumatoid factor M05.79 [facility] [id number] [place] [address] 81925- 7854 November, Rheumatoid arthritis involving multiple sites with positive rheumatoid factor M05.79 [facility] [id number] [place] [address] 02472- 5456 Oct, Rheumatoid arthritis involving multiple sites with positive rheumatoid factor M05.79 [facility] [id number] [place] [address] 52820- 7591 Oct, [facility] [id number] [place] [address] 84696- 0203 Oct, Rheumatoid arthritis involving multiple sites with positive rheumatoid factor M05.79 [facility] [id number] [place] [address] 96996- 6720 Oct, Rheumatoid arthritis involving multiple sites with positive rheumatoid factor M05.79 ; Type 2 diabetes mellitus with hyperglycemia, without long-term current use of insulin E11.65 ; Hyperlipidemia E78.5 and Other elevated white blood cell (WBC) count D72.828 [place] [address] [address] 8179 Oct, Chronic obstructive pulmonary disease, unspecified J44.9 [place] [facility] [address] [place] [address] 53217- 5474 Oct, Rheumatoid arthritis involving multiple sites with positive rheumatoid factor M05.79 [facility] [facility] [address] [place] [address] 41463- 5669 Oct, Type 2 diabetes mellitus with hyperglycemia, without long- term current use of insulin E11.65 [facility] [address] [address]14 Sep, [facility] [id number] [place] [address] 46211- 4651 Sep, Rheumatoid arthritis involving multiple sites with positive rheumatoid factor M05.79 ; Visit for TB skin test Z11.1 and Psoriasis L40.9 [facility] [id number] [place] [address] 46397- 6543 Sep, Type 2 diabetes mellitus with hyperglycemia, without long- term current use of insulin E11.65 ; Rheumatoid arthritis involving multiple sites with positive rheumatoid factor M05.79 ; Hyperlipidemia E78.5 ; Essential hypertension I10 ; Other elevated white blood cell (WBC) count D72.828 ; Primary insomnia F51.01 and Tobacco use Z72.0 [place] [address] 88829- 1775 Sep, [facility] [facility] [address] 63042- 0857 Aug, Type 2 diabetes mellitus with hyperglycemia, without long- term current use of insulin E11.65 and Hyperlipidemia E78.5 [facility] [id number] [place] [address] 70722- 2987 Jul, [facility] [facility] [address] 88616- 7227 Jul, Rheumatoid arthritis involving multiple sites with positive rheumatoid factor M05.79 [place] [address] 69740- 7245 Jul, Rheumatoid arthritis involving multiple sites with positive rheumatoid factor M05.79 [facility] [id number] [place] [address] 99222- 1071 Jun, Essential hypertension I10 and Hyperlipidemia E78.5 [place] [address] 41058- 7403 Jun, Chronic obstructive pulmonary disease, unspecified J44.9 [place] [address] 78489- 6318 Jun, [facility] [facility] [address] 71986- 0225 May, Type 2 diabetes mellitus without complication E11.9 ; Rheumatoid arthritis involving multiple sites with positive rheumatoid factor M05.79 ; Psoriasis L40.9 and Essential hypertension I10 [facility] [id number] [id number] May, Dental examination Z01.20 and Dental caries K02.9 [facility] [address] [place] [address] 74802- 5969 Apr, Type 2 diabetes mellitus without complication E11.9 ; Type 2 diabetes mellitus with hyperglycemia, without long-term current use of insulin E11.65 ; Idiopathic pulmonary fibrosis J84.112 ; Essential hypertension I10 ; Tobacco use Z72.0 ; Rheumatoid arthritis involving multiple sites with positive rheumatoid factor M05.79 ; Hyperlipidemia E78.5 and Chronic obstructive pulmonary disease, unspecified J44.9 [facility] [address] [address] 0813 Apr, Dental examination Z01.20 [facility] [address] [address] 3066 Apr, [facility] [id number] [place] [address] 54392- 2074 Apr, [facility] [address] [place] [address] 38040- 8102 Apr, [facility] [address] [address]- 0336 Apr, [facility] [address] [address]- 4934 Apr, [facility] [address] [place] [address] 68745- 1513 Apr, Type 2 diabetes mellitus without complication E11.9 and Essential hypertension I10 [facility] [address] [address]- 4442 Mar, [facility] [id number] [place] [address] 46738- 6604 Mar, Rheumatoid arthritis involving multiple sites with positive rheumatoid factor M05.79 [facility] [address] [place] [address] 60358- 4816 Mar, Type 2 diabetes mellitus without complication E11.9 ; Essential hypertension I10 and Hyperlipidemia E78.5 [facility] [address] [place] [address] 16527- 4981 Mar, Rheumatoid arthritis involving multiple sites with positive rheumatoid factor M05.79 [facility] [id number] [place] [address] 84190- 4115 Mar, [facility] [id number] [place] [address] 85989- 0990 Mar, Hyperlipidemia E78.5 ; Essential hypertension I10 and Type 2 diabetes mellitus without complication E11.9 [facility] [address] [place] [address] 09952- 9750 Feb, Rheumatoid arthritis involving multiple sites with positive rheumatoid factor M05.79 and Essential hypertension I10 [place] [address] [place] [address] 43784- 6234 Jan, Rheumatoid arthritis involving multiple sites with positive rheumatoid factor M05.79 [facility] [id number] [place] [address] 91330- 2336 Dec, Rheumatoid arthritis involving multiple sites with positive rheumatoid factor M05.79 [facility] [address] [place] [address] 82944- 3116 Dec, [facility] [address] [place] [address] 70315- 3949 November, Rheumatoid arthritis involving multiple sites with positive rheumatoid factor M05.79 and Psoriasis L40.9 [facility] [id number] [place] [address] 26237- 5156 November, Hyperlipidemia E78.5 [facility] [address] [place] [address] 13169- 7519 November, Type 2 diabetes mellitus without complication E11.9 [facility] [id number] [place] [address] 83462- 8241 November, [facility] [facility] [id number] [place] [address] 66446- 0077 November, Rheumatoid arthritis involving multiple sites with positive rheumatoid factor M05.79 ; Hyperlipidemia E78.5 ; Type 2 diabetes mellitus without complication E11.9 ; Idiopathic pulmonary fibrosis J84.112 and Tobacco use Z72.0 [place] [address] 74993- 0033 Oct, Essential hypertension I10 and Rheumatoid arthritis involving multiple sites with positive rheumatoid factor M05.[address] 898290- 3610 Sep, Rheumatoid arthritis involving multiple sites with positive rheumatoid factor M05.79 and Psoriasis L40.[address] 07677- 4436 Jul, Rheumatoid arthritis involving multiple sites with positive rheumatoid factor M05.79 [facility] [id number] [place] [address] 63833- 0172 Jul, Idiopathic pulmonary fibrosis J84.112 [address] [id number] [place] [address] [id number] Jul, [place] [id number] [place] [address] 18672- 9121 Jul, Idiopathic pulmonary fibrosis J84.112 [place] [id number] [place] [address] 65296- 3297 Jul, Idiopathic pulmonary fibrosis J84.112 and Hypoxia R09.[address] 54456- 6740 Jul, Cough R05 and Idiopathic pulmonary fibrosis J84.112 [place] [id number] [place] [address] 80867- 6953 Apr, Type 2 diabetes mellitus without complication E11.9 ; Rheumatoid arthritis involving multiple sites with positive rheumatoid factor M05.79 ; Psoriasis L40.9 ; Hyperlipidemia E78.5 ; Idiopathic pulmonary fibrosis J84.112 and Essential hypertension I10 [facility] [address] [place] [address] 69306- 4382 Feb, [facility] [address] [address]- 2736 Feb, [facility] [id number] [place] [address] 43228- 8453 Dec, Right ankle gives way M25.371 [facility] [id number] [place] [address] 75447- 6468 November, [facility] [id number] [place] [address] 41269- 9714 November, Wrist pain, left M25.532 [place] [id number] [place] [address] 41525- 1055 Sep, Psoriasis L40.9 [facility] [id number] [place] [address] 05624- 9795 Sep, COPD exacerbation J44.1 [facility] [address] [place] [address] 77586- 0953 Aug, [facility] [address] [place] [address] 75012- 6209 Aug, Rheumatoid arthritis involving multiple sites with positive rheumatoid factor M05.79 and Hyperlipidemia E78.5 [facility] [address] [address]- 7429 Aug, [facility] [address] [place] [address] 86441- 8215 Aug, Psoriasis L40.9 ; Rheumatoid arthritis involving multiple sites with positive rheumatoid factor M05.79 and Essential hypertension I10 [facility] [address] [address]- 2782 Jul, [facility] [id number] [address]- 4359 Jul, [facility] [id number] [place] [address] 47548- 1093 Jul, Type 2 diabetes mellitus without complication E11.9 ; Hyperlipidemia E78.5 and Rheumatoid arthritis involving multiple sites with positive rheumatoid factor M05.79 [facility] [id number] [place] [address] 78408- 5871 Jun, [facility] [id number] [place] [address] 17117- 7544 Apr, [facility] [id number] [place] [address] 57909- 1314 Mar, [facility] [id number] [place] [address] 42652- 4023 Mar, [facility] [id number] [place] [address] 98210- 3140 Mar, Rheumatoid arthritis 714.0 ; Other psoriasis 696.1 and Cellulitis, axillary fold 682.3 [facility] [id number] [place] [address] 53918- 5608 Jan, [facility] [id number] [place] [address] 76711- 4387 Dec, [facility] [id number] [place] [address] 96415- 1733 Dec, Other and unspecified hyperlipidemia 272.4 ; Other psoriasis 696.1 and Diabetes mellitus without mention of complication, type II or unspecified type, not stated as uncontrolled 250.00 [facility] [id number] [place] [address] 18060- 7455 Dec, [facility] [id number] [place] [address] 87880- 8655 November, [facility] [id number] [place] [address] 80889- 9015 Oct, [facility] [place] [facility] [address] [id number] [place] [address]- 2546 13 Oct, 2014 [facility] [place] [facility] [address] [id number] [place] [address]- 8524 24 Sep, 2014 [facility] [place] [facility] [address] [id number] [place] [address]- 2546 24 Sep, 2014 [facility] [place] [facility] [address] [id number] [place] [address]- 5346 20 Sep, 2014 [facility] [place] [facility] [address] [id number] [place] [address]- 5286 20 Sep, 2014 [facility] [place] [facility] [address] [id number] [place] [address]- 7907 13 Sep, 2014 [facility] [place] [facility] [address] [id number] [place] [address]- 4056 Sep, [facility] [place] [facility] [address] [id number] [place] [address]- 4934 Sep, [facility] [place] [facility] [address] [id number] [place] [address]- 6201 Sep, [facility] [place] [facility] [address] [id number] [place] [address]- 0386 Sep, [facility] [place] [facility] [address] [id number] [place] [address]- 7936 Sep, [facility] [place] [facility] [address] [id number] [place] [address]- 2322 Jul, [facility] [place] [facility] [address] [id number] [place] [address]- 7052 Jul, [facility] [place] [facility] [address] [id number] [place] [address]- 5276 Jul, [facility] [place] [facility] [address] [id number] [place] [address]- 2546 16 Jul, 2014 [facility] [place] [facility] [address] [id number] [place] [address]- 0732 15 Jul, 2014 [facility] [place] [facility] [address] [id number] [place] [address]- 9330 15 Jul, 2014 [facility] [place] [facility] [address] [id number] [place] [address]- 8471 Jul, [facility] [place] [facility] [address] [id number] [place] [address]- 8764 Jul, [facility] [place] [facility] [address] [id number] [place] [address]- 9042 Jun, [facility] [place] [facility] [address] [id number] [place] [address]- 8075 Jun, [facility] [place] [facility] [address] [id number] [place] [address]- 7575 Jun, [facility] [place] [facility] [address] [id number] [place] [address]- 8558 Jun, [facility] [place] [facility] [address] [id number] [place] [address]- 6342 Jun, [facility] [place] [facility] [address] [id number] [place] [address]- 0055 Jun, [facility] [place] [facility] [address] [id number] [place] [address]- 2880 Apr, [facility] [place] [facility] [address] [id number] [address]- 0630 Apr, [facility] [place] [facility] [address] [id number] [address]- 2575 Mar, [facility] [place] [facility] [address] [id number] [place] [address]- 0348 Mar, [facility] [place] [facility] [address] [id number] [place] [address]- 7263 Feb, [facility] [place] [facility] [address] [id number] [place] [address]- 5153 Feb, [facility] [place] [facility] [address] [id number] [place] 4665 Jan, [facility] [place] [facility] [address] [id number] [place] [address]- 9573 Jan, [facility] [place] [facility] [address] [id number] [place] [address]- 7260 Jan, [facility] [place] [facility] [address] [id number] [place] [address]- 4760 Jan, [facility] [place] [facility] [address] [id number] [place] [address]- 4853 Jan, [facility] [place] [facility] [address] [id number] [place] [address]- 2350 Dec, [facility] [place] [facility] [address] [id number] [place] [address]- 7787 Dec, [facility] [place] [facility] [address] [id number] [place] [address]- 4642 Dec, [facility] [place] [facility] [address] [id number] [place] [address]- 6685 Dec, [facility] [place] [facility] [address] [id number] [place] [address]- 5507 November, [facility] [place] [facility] [address] [id number] [place] [address]- 4566 November, [facility] [place] [facility] [address] [id number] [place] [address]- 4219 Oct, [facility] [place] [facility] [address] [id number] [place] [address]- 4102 Oct, [facility] [place] [facility] [address] [id number] [place] [address]- 4554 Sep, [facility] [place] [facility] [address] [id number] [place] [address]- 8394 Sep, [facility] [place] [facility] [address] [id number] [place] [address]- 0210 Sep, [facility] [place] [facility] [address] [id number] [place] [address]- 6906 Sep, [facility] [place] [facility] [address] [id number] [place] [address]- 5148 Aug, [facility] [place] [facility] [address] [id number] [place] [address]- 3849 Aug, [facility] [place] [facility] [address] [id number] [place] [address]- 7515 Aug, [facility] [place] [facility] [address] [id number] [place] [address]- 2183 Aug, [facility] [place] [facility] [address] [id number] [place] [address]- 8653 Aug, [facility] [place] [facility] [address] [id number] [place] [address]- 3146 Aug, [facility] [place] [facility] [address] [id number] [place] [address]- 4282 Jul, [facility] [place] [facility] [address] [id number] [place] [address]- 6152 Jul, [facility] [place] [facility] [address] [id number] [place] [address]- 7738 Jul, [facility] [place] [facility] [address] [id number] [place] [address]- 1652 Jul, [facility] [place] [facility] [address] [id number] [place] [address]- 0773 Jul, [facility] [place] [facility] [address] [id number] [place] [address]- 6115 Jul, [facility] [place] [facility] [address] [id number] [place] [address]- 0865 Jul, [facility] [place] [facility] [address] [id number] [place] [address]- 4763 Jul, [facility] [place] [facility] [address] [id number] [place] [address]- 7586 Jun, [facility] [address] [id number] [place] [address]- 0749 Jun, [facility] [place] [facility] [address] [id number] [place]- 1111 Jun, [facility] [place] [facility] [address] [id number] [place] [address]- 1788 Jun, [facility] [place] [facility] [address] [id number] [place] [address]- 1528 Jun, [facility] [place] [facility] [address] [id number] [place] [address]- 2996 Jun, [facility] [place] [facility] [address] [id number] [place] [address]- 7285 May, [facility] [place] [facility] [address] [id number] [place] [address]- 3305 May, [facility] [place] [facility] [address] [id number] [place] [address]- 1336 May, [facility] [place] [facility] [address] [id number] [place] [address]- 7845 May, [facility] [place] [facility] [address] [facility] [id number] [place] [address]- 2510 Apr, [facility] [place] [facility] [address] [id number] [place] [address]- 5138 Apr, [facility] [place] [facility] [address] [id number] [place] [address]- 0179 08 Apr, 2013 [facility] [place] [facility] [address] [id number] [place] [address]- 1712 07 Apr, 2013 [facility] [place] [facility] [address] [id number] [place] [address]- 7413 25 Mar, 2013 [facility] [place] [facility] [address] [id number] [place] [address]- 0154 23 Mar, 2013 [facility] [place] [facility] [address] [id number] [place] [address]- 7286 16 Mar, 2013 [facility] [address] [id number] [place] [address]- 7266 12 Mar, 2013 [facility] [place] [facility] [address] [id number] [place] [address]- 8009 09 Mar, 2013 [facility] [place] [facility] [address] [id number] [place] [address]- 9346 Mar, [facility] [place] [facility] [address] [id number] [place] [address]- 2501 Feb, [facility] [place] [facility] [address] [id number] [place] [address]- 8863 Feb, [facility] [place] [facility] [address] [id number] [place] [address]- 5788 Feb, [facility] [address] [id number] [place] [address]- 1188 Feb, [facility] [place] [facility] [address] [id number] [place] [address]- 4472 Jan, [facility] [place] [facility] [address] [id number] [place] [address] Dec, [facility] [place] [facility] [address] [id number] [place] [address] November, [facility] [place] [facility] [address] [id number] [place] [address] Sep, [facility] [place] [facility] [address] [id number] [place] [address] Aug, [facility] [place] [facility] [address] [id number] [place] [address] Aug, [facility] [place] [facility] [address] [id number] [place] [address] Jul, [facility] [place] [facility] [address] [id number] [place] [address] Jul, [facility] [place] [facility] [address] [id number] [place] [address] Jun, [facility] [place] [facility] [address] [id number] [place] [address] Jun, [facility] [place] [facility] [address] [id number] [place] [address] Jun, [facility] [place] [facility] [address] [id number] [place] [address] Jun, [facility] [place] [facility] [address] [id number] [place] [address] Jun, [facility] [place] [facility] [address] [id number] [place] [address] Jun, [facility] [place] [facility] [address] [id number] [place] [address] 30 May, 2012 [facility] [place] [facility] [address] [id number] [place] [address] 29 May, 2012 [facility] [place] [facility] [address] [id number] [place] [address] 28 May, 2012 [facility] [place] [facility] [address] [id number] [place] [address] 28 May, 2012 [facility] [place] [facility] [address] [id number] [place] [address] May, [facility] [place] [facility] [address] [id number] [place] [address] 27 May, 2012 [facility] [place] [facility] [address] [id number] [place] [address] 15 May, 2012 [facility] [place] [facility] [address] [id number] [place] [address] 15 May, 2012 [facility] [place] [facility] [address] [id number] [place] [address] 14 May, 2012 [facility] [place] [facility] [address] [id number] [place] [address] 14 May, 2012 [facility] [place] [facility] [address] [id number] [place] [address] May, [facility] [place] [facility] [address] [id number] [place] [address] 12 May, 2012 [facility] [place] [facility] [address] [id number] [place] [address] May, [facility] [place] [facility] [address] [id number] [place] [address] 10 May, 2012 [facility] [place] [facility] [address] [id number] [place] [address] May, [facility] [place] [facility] [address] [id number] [place] [address] Apr, [facility] [place] [facility] [address] [id number] [place] [address] Apr, [facility] [place] [facility] [address] [id number] [place] [address] Apr, [facility] [place] [facility] [address] [facility] [id number] [place] [address] Apr, [facility] [place] [facility] [address] [facility] [id number] [place] [address] Apr, [facility] [place] [facility] [address] [id number] [place] [address] Apr, [facility] [place] [facility] [address] [id number] [place] [address] Apr, [facility] [place] [facility] [address] [id number] [place] [address] Apr, [facility] [place] [facility] [address] [facility] [id number] [place] [address] Apr, [facility] [place] [facility] [address] [id number] [place] [address] Apr, [facility] [address] [id number] [place] [address] 25 Mar, 2012 [facility] [address] [id number] [place] [address] 24 Mar, 2012 [facility] [address] [id number] [place] [address] 14 Mar, 2012 [facility] [address] [id number] [place] [address] 04 Mar, 2012 [facility] [address] [id number] [place] [address] Feb, [facility] [address] [id number] [place] [address] Feb, [facility] [address] [facility] [id number] [place] [address] 15 Feb, 2012 [facility] [address] [facility] [id number] [place] [address] 14 Feb, 2012 [facility] [address] [facility] [id number] [place] [address] Feb, [facility] [address] [facility] [id number] [place] [address] November, [facility] [address] [facility] [id number] [place] [address] Aug, [facility] [address] [facility] [id number] [place] [address] May, [facility] [address] [facility] [id number] [place] [address] May, [facility] [address] [facility] [id number] [place] [address] Apr, [facility] [address] [facility] [id number] [place] [address] 17 Mar, 2009 IMMUNIZATIONS No Known Immunizations SOCIAL HISTORY Never Assessed REASON FOR VISIT Medication Refill PLAN OF CARE VITAL SIGNS MEDICATIONS Medication Instructions Dosage Frequency Start Date End Date Duration Status Methotrexate 2.5 MG Orally once weekly 6 tabs November, Active RESULTS No Results PROCEDURES No Known [...]
--- OUTSIDE RECORDS SUMMARY | 2018-09-03 14:54 | XMS REPORT ---
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 Name Role Phone GENEVIEVESANTOSH LEMAHANY Unavailable PROBLEMS Type Condition ICD9-CM Code [id number]-PX Code Onset Dates Condition Status SNOMED Code Problem Psoriasis L40.9 Active 0735573 Problem Rheumatoid arthritis involving multiple sites with positive rheumatoid factor M05.79 Active 755108628 Problem Vision loss, left eye H54.62 Active 16308342 Problem Primary insomnia F51.01 Active 1887698 Problem Other elevated white blood cell (WBC) count D72.828 Active 177252011 Problem Essential hypertension I10 Active 12743511 Problem Hematochezia K92.1 Active 080400169 Problem Type 2 diabetes mellitus with hyperglycemia, without long-term current use of insulin E11.65 Active 50056191 Problem Tobacco use Z72.0 Active 791126989 Problem Renal cyst, right N28.1 Active 39488291 Problem Idiopathic pulmonary fibrosis J84.112 Active 815823214 Problem Chronic obstructive pulmonary disease, unspecified J44.9 Active 30359516 Problem Lactic acidosis E87.2 Active 50506857 Problem Hyperlipidemia E78.5 Active 71290993 ALLERGIES No Information ENCOUNTERS Encounter Location Date Diagnosis [facility] [id number] [address] Jan, [facility] [id number] [address] November, [facility] [id number] [place] [address] 32295- 2784 November, Rheumatoid arthritis involving multiple sites with positive rheumatoid factor M05.79 [facility] [id number] [address] 5[address] November, Rheumatoid arthritis involving multiple sites with positive rheumatoid factor M05.79 [facility] [address] [address] November, Rheumatoid arthritis involving multiple sites with positive rheumatoid factor M05.79 [facility] [id number] [place] [address] 41045- 3362 Oct, Rheumatoid arthritis involving multiple sites with positive rheumatoid factor M05.79 [facility] [id number] [place] [address] 17177- 3243 Oct, [facility] [id number] [place] [address] 53631- 3829 Oct, Rheumatoid arthritis involving multiple sites with positive rheumatoid factor M05.79 [facility] [id number] [place] [address] 62310- 4151 Oct, Rheumatoid arthritis involving multiple sites with positive rheumatoid factor M05.79 ; Type 2 diabetes mellitus with hyperglycemia, without long-term current use of insulin E11.65 ; Hyperlipidemia E78.5 and Other elevated white blood cell (WBC) count D72.828 [facility] [id number] [place] [address] 95448- 3930 Oct, Chronic obstructive pulmonary disease, unspecified J44.9 [facility] [id number] [place] [address] 25253- 6639 Oct, Rheumatoid arthritis involving multiple sites with positive rheumatoid factor M05.79 [facility] [place] [id number] [place] [address] 95442- 5369 Oct, Type 2 diabetes mellitus with hyperglycemia, without long- term current use of insulin E11.65 [facility] [address] [address] Sep, [facility] [id number] [place] [address] 38309- 0735 Sep, Rheumatoid arthritis involving multiple sites with positive rheumatoid factor M05.79 ; Visit for TB skin test Z11.1 and Psoriasis L40.9 [facility] [id number] [place] [address] 18065- 3942 Sep, Type 2 diabetes mellitus with hyperglycemia, without long- term current use of insulin E11.65 ; Rheumatoid arthritis involving multiple sites with positive rheumatoid factor M05.79 ; Hyperlipidemia E78.5 ; Essential hypertension I10 ; Other elevated white blood cell (WBC) count D72.828 ; Primary insomnia F51.01 and Tobacco use Z72.0 [facility] [id number] [place] [address] 73576- 5666 Sep, [facility] [id number] [place] [address] 89805- 9633 Aug, Type 2 diabetes mellitus with hyperglycemia, without long- term current use of insulin E11.65 and Hyperlipidemia E78.5 [facility] [id number] [place] [address] 94675- 4784 Jul, [facility] [address] 40467- 2685 Jul, Rheumatoid arthritis involving multiple sites with positive rheumatoid factor M05.79 [facility] [address] 80268- 8821 Jul, Rheumatoid arthritis involving multiple sites with positive rheumatoid factor M05.79 [facility] [id number] [place] [address] 75828- 6633 Jun, Essential hypertension I10 and Hyperlipidemia E78.5 [facility] [id number] [place] [address] 23910- 8560 Jun, Chronic obstructive pulmonary disease, unspecified J44.9 [facility] [id number] [place] [address] 90848- 6640 Jun, [facility] [id number] [place] [address] 53140- 7696 May, Type 2 diabetes mellitus without complication E11.9 ; Rheumatoid arthritis involving multiple sites with positive rheumatoid factor M05.79 ; Psoriasis L40.9 and Essential hypertension I10 [facility] [id number] [place] [address] [id number] May, Dental examination Z01.20 and Dental caries K02.9 [facility] [address], [place] [address] 4786 Apr, Type 2 diabetes mellitus without complication E11.9 ; Type 2 diabetes mellitus with hyperglycemia, without long-term current use of insulin E11.65 ; Idiopathic pulmonary fibrosis J84.112 ; Essential hypertension I10 ; Tobacco use Z72.0 ; Rheumatoid arthritis involving multiple sites with positive rheumatoid factor M05.79 ; Hyperlipidemia E78.5 and Chronic obstructive pulmonary disease, unspecified J44.9 [facility] [address] [address] 9626 Apr, Dental examination Z01.20 [facility] [address] [address] 5815 Apr, [facility] [id number] [place] [address] 49194- 5315 Apr, [facility] [id number] [place] [address] 47295- 0340 Apr, [facility] [id number] [place] [address] 75390- 0412 Apr, [facility] [address] [address]- 1767 Apr, [facility] [address] [address] 3633 Apr, Type 2 diabetes mellitus without complication E11.9 and Essential hypertension I10 [facility] [address] [address]- 6395 Mar, [facility] [id number], [place] [address] 4926 Mar, Rheumatoid arthritis involving multiple sites with positive rheumatoid factor M05.79 [facility] [address], [place] [address]- 4064 Mar, Type 2 diabetes mellitus without complication E11.9 ; Essential hypertension I10 and Hyperlipidemia E78.5 [facility] [address] [address]- 6635 Mar, Rheumatoid arthritis involving multiple sites with positive rheumatoid factor M05.79 [facility] [address] [address]- 4096 Mar, [facility] [id number] [place] [address] 95738- 9281 Mar, Hyperlipidemia E78.5 ; Essential hypertension I10 and Type 2 diabetes mellitus without complication E11.9 [facility] [id number] [place] [address] 71778- 8236 Feb, Rheumatoid arthritis involving multiple sites with positive rheumatoid factor M05.79 and Essential hypertension I10 [facility] [id number] [place] [address] 34475- 3297 Jan, Rheumatoid arthritis involving multiple sites with positive rheumatoid factor M05.79 [facility] [id number] [place] [address] 65824- 6536 Dec, Rheumatoid arthritis involving multiple sites with positive rheumatoid factor M05.79 [facility] [id number] [place] [address] 47510- 8089 Dec, [facility] [id number] [place] [address] 17524- 3108 November, Rheumatoid arthritis involving multiple sites with positive rheumatoid factor M05.79 and Psoriasis L40.9 [facility] [address] [address]- 0146 November, Hyperlipidemia E78.5 [facility] [id number] [place] [address] 13054- 1501 November, Type 2 diabetes mellitus without complication E11.9 [facility] [address] [address]- 2600 November, [facility] [id number] [place] [address] 01744- 7744 November, Rheumatoid arthritis involving multiple sites with positive rheumatoid factor M05.79 ; Hyperlipidemia E78.5 ; Type 2 diabetes mellitus without complication E11.9 ; Idiopathic pulmonary fibrosis J84.112 and Tobacco use Z72.0 [facility] [id number] [place] [address] 09049- 8807 Oct, Essential hypertension I10 and Rheumatoid arthritis involving multiple sites with positive rheumatoid factor M05.79 [place] [address] 24346- 3997 Sep, Rheumatoid arthritis involving multiple sites with positive rheumatoid factor M05.79 and Psoriasis L40.[address] 15844- 7313 Jul, Rheumatoid arthritis involving multiple sites with positive rheumatoid factor M05.79 [place] [address] 00472- 7455 Jul, Idiopathic pulmonary fibrosis J84.112 [place] [address] [id number] Jul, [place] [address] 92976- 0603 Jul, Idiopathic pulmonary fibrosis J84.112 [place] [address] 05664- 8945 Jul, Idiopathic pulmonary fibrosis J84.112 and Hypoxia R09.02 [id number] [place] [address] 63869- 0934 Jul, Cough R05 and Idiopathic pulmonary fibrosis J84.112 [facility] [id number] [place] [address] 02225- 7601 Apr, Type 2 diabetes mellitus without complication E11.9 ; Rheumatoid arthritis involving multiple sites with positive rheumatoid factor M05.79 ; Psoriasis L40.9 ; Hyperlipidemia E78.5 ; Idiopathic pulmonary fibrosis J84.112 and Essential hypertension I10 [place] [address] 16347- 3661 Feb, [facility] [address] [address]- 6020 Feb, [facility] [id number] [place] [address] 54563- 9391 Dec, Right ankle gives way M25.371 [facility] [id number] [place] [address] 37270- 7501 November, [facility] [id number] [place] [address] 58932- 9711 November, Wrist pain, left M25.532 [facility] [id number] [place] [address] 43626- 4790 Sep, Psoriasis L40.9 [facility] [id number] [place] [address] 66583- 0878 Sep, COPD exacerbation J44.1 [facility] [id number] [place] [address] 34281- 8150 Aug, [facility] [id number] [place] [address] 30023- 6538 Aug, Rheumatoid arthritis involving multiple sites with positive rheumatoid factor M05.79 and Hyperlipidemia E78.5 [facility] [address] [address]- 8713 Aug, [facility] [id number] [place] [address] 86468- 4302 Aug, Psoriasis L40.9 ; Rheumatoid arthritis involving multiple sites with positive rheumatoid factor M05.79 and Essential hypertension I10 [facility] [id number] [place] [address] 91412- 1087 Jul, [facility] [id number] [place] [address] 07337- 8134 Jul, [facility] [address], [place] [address]- 0781 Jul, Type 2 diabetes mellitus without complication E11.9 ; Hyperlipidemia E78.5 and Rheumatoid arthritis involving multiple sites with positive rheumatoid factor M05.79 [facility] [id number] [place] [address] 31683- 3462 Jun, [facility] [id number] [place] [address] 99500- 4688 Apr, [facility] [id number] [place] [address] 71687- 9876 Mar, [facility] [address] 32884- 1114 Mar, [facility] [address] 98830- 9773 Mar, Rheumatoid arthritis 714.0 ; Other psoriasis 696.1 and Cellulitis, axillary fold 682.3 [place] [id number] [place] [address] 36287- 0015 Jan, [facility] [id number] [place] [address] 46557- 9046 Dec, [facility] [id number] [place] [address] 69795- 1044 Dec, Other and unspecified hyperlipidemia 272.4 ; Other psoriasis 696.1 and Diabetes mellitus without mention of complication, type II or unspecified type, not stated as uncontrolled 250.00 [facility] [id number] [place] [address] 90405- 8703 Dec, [facility] [id number] [place] [address] 82910- 2892 November, [facility] [id number] [place] [address] 74351- 5150 Oct, [facility] [id number] [place] [address] 30701- 8525 Oct, [facility] [id number] [place] [address] 46804- 1707 Sep, [facility] [place] [facility] [address] [id number] [place] [address]- 4495 24 Sep, 2014 [facility] [place] [facility] [address] [id number] [place] [address]- 0659 20 Sep, 2014 [facility] [place] [facility] [address] [id number] [place] [address]- 3164 20 Sep, 2014 [facility] [place] [facility] [address] [id number] [place] [address]- 8508 13 Sep, 2014 [facility] [place] [facility] [address] [id number] [place] [address]- 2900 Sep, [facility] [place] [facility] [address] [id number] [place] [address]- 4385 Sep, [facility] [place] [facility] [address] [id number] [place] [address]- 4383 Sep, [facility] [place] [facility] [address] [id number] [place] [address]- 7785 Sep, [facility] [place] [facility] [address] [id number] [place] [address]- 5015 Sep, [facility] [place] [facility] [address] [id number] [place] [address]- 4813 Jul, [facility] [place] [facility] [address] [id number] [place] [address]- 7971 Jul, [facility] [place] [facility] [address] [id number] [place] [address]- 5375 Jul, [facility] [place] [facility] [address] [id number] [place] [address]- 6085 Jul, [facility] [place] [facility] [address] [id number] [place] [address]- 9703 15 Jul, 2014 [facility] [place] [facility] [address] [id number] [place] [address]- 2833 15 Jul, 2014 [facility] [place] [facility] [address] [id number] [place] [address]- 0536 Jul, [facility] [place] [facility] [address] [id number] [place] [address]- 3618 Jul, [facility] [place] [facility] [address] [id number] [place] [address]- 5246 Jun, [facility] [place] [facility] [address] [id number] [place] [address]- 7793 Jun, [facility] [place] [facility] [address] [id number] [place] [address]- 5437 Jun, [facility] [place] [facility] [address] [id number] [place] [address]- 4604 Jun, [facility] [place] [facility] [address] [id number] [place] [address]- 5389 Jun, [facility] [place] [facility] [address] [id number] [place] [address]- 2144 Jun, [facility] [place] [facility] [address] [id number] [place] [address]- 0034 Apr, [facility] [place] [facility] [address] [id number] [place] [address]- 1937 Apr, [facility] [place] [facility] [address] [id number] [place] [address]- 6656 Mar, [facility] [place] [facility] [address] [id number] [place] [address]- 0701 Mar, [facility] [place] [facility] [address] [id number] [place] [address]- 4202 Feb, [facility] [place] [facility] [address] [id number] [place] [address]- 0739 Feb, [facility] [place] [facility] [address] [id number] [place] [address]- 9143 Jan, [facility] [place] [facility] [address] [id number] [place] [address]- 9504 Jan, [facility] [place] [facility] [address] [id number] [place] [address]- 5586 Jan, [facility] [address] [id number] [place] [address]- 2232 Jan, [facility] [place] [facility] [address] [id number] [place] [address]- 3008 Jan, [facility] [place] [facility] [address] [id number] [place] [address]- 7208 Dec, [facility] [place] [facility] [address] [id number] [place] [address]- 2927 Dec, [facility] [place] [facility] [address] [id number] [place] [address]- 5873 Dec, [facility] [place] [facility] [address] [id number] [place] [address]- 7324 Dec, [facility] [place] [facility] [address] [id number] [place] [address]- 6007 November, [facility] [place] [facility] [address] [id number] [place] [address]- 7784 November, [facility] [place] [facility] [address] [id number] [place] [address]- 2246 Oct, [facility] [place] [facility] [address] [id number] [place] [address]- 3690 Oct, [facility] [place] [facility] [address] [id number] [place] [address]- 9636 Sep, [facility] [place] [facility] [address] [id number] [place] [address]- 2923 Sep, [facility] [place] [facility] [address] [id number] [place] [address]- 2008 Sep, [facility] [place] [facility] [address] [id number] [place] [address]- 2546 Sep, [facility] [place] [facility] [address] [id number] [place] [address]- 2357 Aug, [facility] [place] [facility] [address] [id number] [place] [address]- 3815 Aug, [facility] [place] [facility] [address] [id number] [place] [address]- 2666 Aug, [facility] [place] [facility] [address] [id number] [place] [address]- 6756 Aug, [facility] [place] [facility] [address] [id number] [place] [address]- 6518 Aug, [facility] [place] [facility] [address] [id number] [place] [address]- 0519 Aug, [facility] [place] [facility] [address] [id number] [place] [address]- 0181 Jul, [facility] [place] [facility] [address] [id number] [place] [address]- 3602 Jul, [facility] [place] [facility] [address] [id number] [place] [address]- 1143 Jul, [facility] [place] [facility] [address] [id number] [place] [address]- 7577 Jul, [facility] [place] [facility] [address] [id number] [place] [address]- 7534 Jul, [facility] [place] [facility] [address] [id number] [place] [address]- 7528 Jul, [facility] [place] [facility] [address] [id number], [place] [address]- 3029 Jul, [facility] [place] [facility] [address] [id number] [place] [address]- 5425 Jul, [facility] [place] [facility] [address] [id number] [place] [address]- 5162 Jun, [facility] [place] [facility] [address] [id number] [place] [address]- 0597 Jun, [facility] [place] [facility] [address] [id number] [place] [address]- 9159 Jun, [facility] [address] [id number] [place] [address]- 5935 Jun, [facility] [place] [facility] [address] [id number] [place] [address]- 4684 Jun, [facility] [place] [facility] [address] [id number] [place] [address]- 8271 Jun, [facility] [place] [facility] [address] [id number] [place] [address]- 7022 May, [facility] [place] [facility] [address] [id number] [place] [address]- 2203 May, [facility] [place] [facility] [address] [id number] [place] [address]- 9617 May, [facility] [place] [facility] [address] [id number] [place] [address]- 0063 May, [facility] [place] [facility] [address] [id number] [place] [address]- 6854 Apr, [facility] [place] [facility] [address] [id number] [place] [address]- 7409 Apr, [facility] [place] [facility] [address] [id number] [place] [address]- 4373 08 Apr, 2013 [facility] [place] [facility] [address] [id number] [place] [address]- 2042 07 Apr, 2013 [facility] [place] [facility] [address] [id number] [place] [address]- 0597 25 Mar, 2013 [facility] [place] [facility] [address] [id number] [place] [address]- 6865 23 Mar, 2013 [facility] [place] [facility] [address] [id number] [place] [address]- 7289 16 Mar, 2013 [facility] [place] [facility] [address] [id number] [place] [address]- 8858 Mar, [facility] [place] [facility] [address] [id number] [place] [address]- 2896 Mar, [facility] [address] [id number] [place] [address]- 3374 Mar, [facility] [address] [id number] [place] [address]- 9672 Feb, [facility] [place] [facility] [address] [id number] [place] [address]- 1368 Feb, [facility] [address] [id number] [place] [address]- 1830 Feb, [facility] [address] [id number] [place] [address] Feb, [facility] [address] [id number] [place] [address] Jan, [facility] [address] [id number] [place] [address] Dec, [facility] [address] [id number] [place] [address] November, [facility] [address] [id number] [place] [address] Sep, [facility] [address] [id number] [place] [address] Aug, [facility] [address] [id number], [place] [address] Aug, [facility] [place] [facility] [address] [id number] [place] [address] Jul, [facility] [place] [facility] [address] [id number] [place] [address] Jul, [facility] [place] [facility] [address] [id number] [place] [address] Jun, [facility] [place] [facility] [address] [id number], [place] [address] Jun, [facility] [place] [facility] [address] [id number] [place] [address] Jun, [facility] [place] [facility] [address] [id number] [place] [address] Jun, [facility] [place] [facility] [address] [facility] [id number] [place] [address] Jun, [facility] [place] [facility] [address] [id number] [place] [address] 06 Jun, 2012 [facility] [place] [facility] [address] [id number] [place] [address] 30 May, 2012 [facility] [place] [facility] [address] [id number] [place] [address] 29 May, 2012 [facility] [place] [facility] [address] [id number] [place] [address] 28 May, 2012 [facility] [place] [facility] [address] [id number] [place] [address] 28 May, 2012 [facility] [place] [facility] [address] [facility] [id number] [place] [address] 27 May, 2012 [facility] [place] [facility] [address] [facility] [id number] [place] [address] 27 May, 2012 [facility] [place] [facility] [address] [facility] [id number] [place] [address] 15 May, 2012 [facility] [place] [facility] [address] [id number] [place] [address] 15 May, 2012 [facility] [place] [facility] [address] [id number] [place] [address] 14 May, 2012 [facility] [place] [facility] [address] [facility] [id number] [place] [address] 14 May, 2012 [facility] [place] [facility] [address] [facility] [id number] [place] [address] 12 May, 2012 [facility] [place] [facility] [address] [id number] [place] [address] May, [facility] [place] [facility] [address] [id number] [place] [address] May, [facility] [place] [facility] [address] [id number] [place] [address] 4846 May, [facility] [place] [facility] [address] [id number] [place] [address] 9693 May, [facility] [place] [facility] [address] [id number] [place] [address] Apr, [facility] [place] [facility] [address] [id number] [place] [address] Apr, [facility] [place] [facility] [address] [id number] [place] [address] Apr, [facility] [place] [facility] [address] [id number] [place] [address] Apr, [facility] [place] [facility] [address] [id number] [place] [address] Apr, [facility] [place] [facility] [address] [id number] [place] [address] Apr, [facility] [place] [facility] [address] [id number] [place] [address]73 Apr, [facility] [place] [facility] [address] [id number] [place] [address]- 1507 Apr, [facility] [place] [facility] [address] [id number] [place] [address]14 Apr, [facility] [place] [facility] [address] [id number] [place] [address] 9216 Apr, [facility] [place] [facility] [address] [id number] [place] [address] Mar, [facility] [place] [facility] [address] [id number] [place] [address] Mar, [facility] [id number] [address] Mar, [facility] [id number] [place] [address]- [address] Mar, [facility] [id number] [address] Feb, [facility] [id number] [place] [address]- [address]609 Feb, [facility] [id number] [place] [address]- 9304 Feb, [facility] [id number] [place] [address]- 7086 Feb, [facility] [id number] [place] [address]- 6[address] Feb, [facility] [id number] [place] [address]- [address] November, [facility] [id number] [place] [address]- 3310 Aug, [facility] [id number] [address] May, [facility] [id number] [address] May, [facility] [id number] [address] Apr, [facility] [id number] [address] Mar, IMMUNIZATIONS No Known Immunizations SOCIAL HISTORY [...]
--- OUTSIDE RECORDS SUMMARY | 2018-09-03 14:54 | XMS REPORT ---
Author Author RILEY SCHRADER [facility] Address [address] [place] [address] Care Team Providers Care Bar And Filler Assembler Name Role Phone RILEY SCHRADER Unavailable PROBLEMS Type Condition ICD9-CM Code XNS38-UQ Code Onset Dates Condition Status SNOMED Code Problem Psoriasis L40.9 Active 4101957 Problem Rheumatoid arthritis involving multiple sites with positive rheumatoid factor M05.79 Active 378795824 Problem Vision loss, left eye H54.62 Active 57634296 Problem Primary insomnia F51.01 Active 7260088 Problem Other elevated white blood cell (WBC) count D72.828 Active 190824626 Problem Essential hypertension I10 Active 05800060 Problem Hematochezia K92.1 Active 595414716 Problem Type 2 diabetes mellitus with hyperglycemia, without long-term current use of insulin E11.65 Active 49388128 Problem Tobacco use Z72.0 Active 487583115 Problem Renal cyst, right N28.1 Active 20221430 Problem Idiopathic pulmonary fibrosis J84.112 Active 994100415 Problem Chronic obstructive pulmonary disease, unspecified J44.9 Active 77772826 Problem Lactic acidosis E87.2 Active 89185973 Problem Hyperlipidemia E78.5 Active 37280108 ALLERGIES No Information ENCOUNTERS Encounter Location Date Diagnosis [facility] [id number] [address] Jan, [facility] [place] [id number] [address] November, [facility] [place] [id number] [place] [address] 73029- 3893 November, Rheumatoid arthritis involving multiple sites with positive rheumatoid factor M05.79 [facility] [place] [id number] [place] [address] 37303- 5423 November, Rheumatoid arthritis involving multiple sites with positive rheumatoid factor M05.79 [address] [address] [address] [address] November, Rheumatoid arthritis involving multiple sites with positive rheumatoid factor M05.79 [facility] [id number] [place] [address] 76912- 3873 Oct, Rheumatoid arthritis involving multiple sites with positive rheumatoid factor M05.79 [facility] [id number] [place] [address] 53528- 3952 Oct, [facility] [id number] [place] [address] 64756- 4482 Oct, Rheumatoid arthritis involving multiple sites with positive rheumatoid factor M05.79 [facility] [id number] [place] [address] 34578- 2883 Oct, Rheumatoid arthritis involving multiple sites with positive rheumatoid factor M05.79 ; Type 2 diabetes mellitus with hyperglycemia, without long-term current use of insulin E11.65 ; Hyperlipidemia E78.5 and Other elevated white blood cell (WBC) count D72.828 [address] [id number] [place] [address] 30222- 8617 Oct, Chronic obstructive pulmonary disease, unspecified J44.9 [facility] [id number] [place] [address] 00777- 5561 Oct, Rheumatoid arthritis involving multiple sites with positive rheumatoid factor M05.79 [facility] [id number] [place] [address] 35954- 5402 Oct, Type 2 diabetes mellitus with hyperglycemia, without long- term current use of insulin E11.65 [facility] [place] [id number] [place] [address] 12889- 8884 Sep, [facility] [id number] [place] [address] 98511- 0074 Sep, Rheumatoid arthritis involving multiple sites with positive rheumatoid factor M05.79 ; Visit for TB skin test Z11.1 and Psoriasis L40.9 [facility] [id number] [place] [address] 82112- 4787 Sep, Type 2 diabetes mellitus with hyperglycemia, without long- term current use of insulin E11.65 ; Rheumatoid arthritis involving multiple sites with positive rheumatoid factor M05.79 ; Hyperlipidemia E78.5 ; Essential hypertension I10 ; Other elevated white blood cell (WBC) count D72.828 ; Primary insomnia F51.01 and Tobacco use Z72.0 [place] [address] 14495- 8247 Sep, [place] [facility] [address] 91601- 6498 Aug, Type 2 diabetes mellitus with hyperglycemia, without long- term current use of insulin E11.65 and Hyperlipidemia E78.5 [facility] [id number] [place] [address] 69495- 2322 Jul, [facility] [id number] [place] [address] 42602- 6086 Jul, Rheumatoid arthritis involving multiple sites with positive rheumatoid factor M05.79 [place] [address] 67037- 8690 Jul, Rheumatoid arthritis involving multiple sites with positive rheumatoid factor M05.79 [facility] [id number] [place] [address] 36161- 1212 Jun, Essential hypertension I10 and Hyperlipidemia E78.5 [facility] [id number] [place] [address] 75937- 3183 Jun, Chronic obstructive pulmonary disease, unspecified J44.9 [facility] [id number] [place] [address] 14382- 2397 Jun, [place] [address] 81156- 3589 May, Type 2 diabetes mellitus without complication E11.9 ; Rheumatoid arthritis involving multiple sites with positive rheumatoid factor M05.79 ; Psoriasis L40.9 and Essential hypertension I10 [facility] [id number] [place] [address] [id number] May, Dental examination Z01.20 and Dental caries K02.9 [facility] [place] [id number] [place] [address] 93041- 2505 Apr, Type 2 diabetes mellitus without complication E11.9 ; Type 2 diabetes mellitus with hyperglycemia, without long-term current use of insulin E11.65 ; Idiopathic pulmonary fibrosis J84.112 ; Essential hypertension I10 ; Tobacco use Z72.0 ; Rheumatoid arthritis involving multiple sites with positive rheumatoid factor M05.79 ; Hyperlipidemia E78.5 and Chronic obstructive pulmonary disease, unspecified J44.9 [facility] [id number] [place] [address] 76186- 2718 Apr, Dental examination Z01.20 [facility] [place] [id number] [place] [address] 71479- 1014 Apr, [facility] [place] [id number] [place] [address] 16213- 9897 Apr, [facility] [place] [id number] [place] [address] 04528- 8697 Apr, [facility] [place] [id number] [place] [address] 49549- 9080 Apr, [facility] [place] [id number] [place] [address] 96902- 2305 Apr, [facility] [place] [id number] [place] [address] 81623- 3442 Apr, Type 2 diabetes mellitus without complication E11.9 and Essential hypertension I10 [facility] [place] [address] [address] 58[address] Mar, [facility] [place] [id number] [place] [address] 14334- 1440 Mar, Rheumatoid arthritis involving multiple sites with positive rheumatoid factor M05.79 [facility] [place] [id number] [place] [address] 58894- 3306 Mar, Type 2 diabetes mellitus without complication E11.9 ; Essential hypertension I10 and Hyperlipidemia E78.5 [facility] [place] [address] [address]- 1074 Mar, Rheumatoid arthritis involving multiple sites with positive rheumatoid factor M05.79 [facility] [place] [address] [address]- 1166 Mar, [facility] [place] [id number] [place] [address] 20393- 8265 Mar, Hyperlipidemia E78.5 ; Essential hypertension I10 and Type 2 diabetes mellitus without complication E11.9 [facility] [place] [id number] [place] [address] 08306- 3644 Feb, Rheumatoid arthritis involving multiple sites with positive rheumatoid factor M05.79 and Essential hypertension I10 [facility] [place] [id number] [place] [address] 38707- 6715 Jan, Rheumatoid arthritis involving multiple sites with positive rheumatoid factor M05.79 [facility] [place] [id number] [place] [address] 34440- 8211 Dec, Rheumatoid arthritis involving multiple sites with positive rheumatoid factor M05.79 [facility] [place] [id number] [place] [address] 40342- 6004 Dec, [facility] [place] [id number] [place] [address] 82789- 8747 November, Rheumatoid arthritis involving multiple sites with positive rheumatoid factor M05.79 and Psoriasis L40.9 [facility] [place] [id number] [place] [address] 61645- 0474 November, Hyperlipidemia E78.5 [facility] [place] [id number] [place] [address] 52020- 8801 November, Type 2 diabetes mellitus without complication E11.9 [facility] [place] [id number] [place] [address] 00499- 5955 November, [facility] [place] [id number] [place] [address] 15570- 2232 November, Rheumatoid arthritis involving multiple sites with positive rheumatoid factor M05.79 ; Hyperlipidemia E78.5 ; Type 2 diabetes mellitus without complication E11.9 ; Idiopathic pulmonary fibrosis J84.112 and Tobacco use Z72.0 [address] [id number] [place] [address] 56509- 3544 Oct, Essential hypertension I10 and Rheumatoid arthritis involving multiple sites with positive rheumatoid factor M05.79 [place] [address] 145319- 5152 Sep, Rheumatoid arthritis involving multiple sites with positive rheumatoid factor M05.79 and Psoriasis L40.[address] 08378- 6201 Jul, Rheumatoid arthritis involving multiple sites with positive rheumatoid factor M05.79 [place] [address] 24078- 3814 Jul, Idiopathic pulmonary fibrosis J84.112 [address] [id number] Jul, [place] [address] 19306- 0651 Jul, Idiopathic pulmonary fibrosis J84.112 [facility] [id number] [place] [address] 45103- 4446 Jul, Idiopathic pulmonary fibrosis J84.112 and Hypoxia R09.02 [place] [id number] [place] [address] 67411- 6364 Jul, Cough R05 and Idiopathic pulmonary fibrosis J84.112 [facility] [id number] [place] [address] 86568- 2127 Apr, Type 2 diabetes mellitus without complication E11.9 ; Rheumatoid arthritis involving multiple sites with positive rheumatoid factor M05.79 ; Psoriasis L40.9 ; Hyperlipidemia E78.5 ; Idiopathic pulmonary fibrosis J84.112 and Essential hypertension I10 [place] [address] 89321- 1556 Feb, [facility] [place] [address] [address]- 2831 Feb, [facility] [place] [id number] [place] [address] 47008- 7595 Dec, Right ankle gives way M25.371 [facility] [place] [id number] [place] [address] 81445- 6223 November, [facility] [place] [id number] [place] [address] 16048- 0474 November, Wrist pain, left M25.532 [address] [id number] [place] [address] 54438- 0429 Sep, Psoriasis L40.9 [facility] [place] [id number] [place] [address] 66544- 8690 Sep, COPD exacerbation J44.1 [place] [id number] [place] [address] 63715- 5188 Aug, [facility] [place] [id number] [place] [address] 84151- 0219 Aug, Rheumatoid arthritis involving multiple sites with positive rheumatoid factor M05.79 and Hyperlipidemia E78.5 [facility] [place] [address] [address]- 5166 Aug, [facility] [place] [id number] [place] [address] 90346- 0408 Aug, Psoriasis L40.9 ; Rheumatoid arthritis involving multiple sites with positive rheumatoid factor M05.79 and Essential hypertension I10 [facility] [address] [place] [address] 71163- 3424 Jul, [facility] [place] [id number] [place] [address] 29980- 6125 Jul, [facility] [place] [address] [address]- 0481 Jul, Type 2 diabetes mellitus without complication E11.9 ; Hyperlipidemia E78.5 and Rheumatoid arthritis involving multiple sites with positive rheumatoid factor M05.79 [facility] [place] [id number] [place] [address] 36064- 3063 Jun, [facility] [place] [id number] [place] [address] 236054- 0761 Apr, [facility] [place] [id number] [place] [address] 66793- 8463 Mar, [facility] [place] [id number] [place] [address] 59607- 5896 Mar, [facility] [place] [id number] [place] [address] 33248- 2323 Mar, Rheumatoid arthritis 714.0 ; Other psoriasis 696.1 and Cellulitis, axillary fold 682.3 [address] [id number] [place] [address] 38130- 4661 Jan, [facility] [place] [id number] [place] [address] 60644- 6074 Dec, [facility] [place] [id number] [place] [address] 17285- 5021 Dec, Other and unspecified hyperlipidemia 272.4 ; Other psoriasis 696.1 and Diabetes mellitus without mention of complication, type II or unspecified type, not stated as uncontrolled 250.00 [address] [address] [place] [address] 33765- 9204 Dec, [facility] [place] [id number] [place] [address] 47708- 7261 November, [facility] [place] [id number] [place] [address] 43687- 6271 Oct, [facility] [place] [id number] [place] [address] 78011- 0840 Oct, [facility] [place] [id number] [place] [address] 73826- 2036 Sep, [facility] [place] [facility] [address] [id number] [place] [address]- 2127 24 Sep, 2014 [facility] [place] [facility] [address] [id number] [place] [address]- 6067 20 Sep, 2014 [facility] [place] [facility] [address] [id number] [place] [address]- 8966 20 Sep, 2014 [facility] [place] [facility] [address] [id number] [place] [address]- 4866 13 Sep, 2014 [facility] [place] [facility] [address] [id number] [place] [address]- 3032 Sep, [facility] [place] [facility] [address] [id number] [place] [address]- 8238 Sep, [facility] [place] [facility] [address] [id number] [place] [address]- 4441 Sep, [facility] [place] [facility] [address] [id number] [place] [address]- 1431 Sep, [facility] [place] [facility] [address] [id number] [place] [address]- 4645 Sep, [facility] [place] [facility] [address] [id number] [place] [address]- 3936 Jul, [facility] [place] [facility] [address] [id number] [place] [address]- 3268 Jul, [facility] [place] [facility] [address] [id number] [place] [address]- 2066 16 Jul, 2014 [facility] [place] [facility] [address] [id number] [place] [address]- 9185 16 Jul, 2014 [facility] [place] [facility] [address] [id number] [place] [address]- 1965 15 Jul, 2014 [facility] [place] [facility] [address] [id number] [place] [address]- 4306 15 Jul, 2014 [facility] [place] [facility] [address] [id number] [place] [address]- 0167 Jul, [facility] [place] [facility] [address] [id number] [place] [address]- 3466 Jul, [facility] [place] [facility] [address] [id number] [place] [address]- 8819 Jun, [facility] [place] [facility] [address] [id number] [place] [address]- 2322 Jun, [facility] [place] [facility] [address] [id number] [place] [address]- 7693 Jun, [facility] [place] [facility] [address] [id number] [place]62 Jun, [facility] [place] [facility] [address] [id number] [place] [address]- 4962 Jun, [facility] [place] [facility] [address] [id number] [place] [address]- 4492 Jun, [facility] [place] [facility] [address] [id number] [place] [address]- 3897 Apr, [facility] [place] [facility] [address] [id number] [place] [address]- 5089 Apr, [facility] [place] [facility] [address] [id number] [place] [address]- 7874 Mar, [facility] [place] [facility] [address] [id number] [address]- 1847 Mar, [facility] [place] [facility] [address] [id number] [place] [address]- 5720 Feb, [facility] [place] [facility] [address] [id number] [place] [address]- 0926 Feb, [facility] [place] [facility] [address] [id number] [place] [address]- 5411 Jan, [facility] [place] [facility] [address] [id number] [place] [address]- 7307 Jan, [facility] [place] [facility] [address] [id number] [place] [address]- 3086 Jan, [facility] [place] [facility] [address] [id number] [place] [address]- 1361 Jan, [facility] [place] [facility] [address] [id number] [place] [address]- 0729 Jan, [facility] [place] [facility] [address] [id number] [place] [address]- 8457 Dec, [facility] [place] [facility] [address] [id number] [place] [address]- 4755 Dec, [facility] [place] [facility] [address] [id number] [place] [address]- 9555 Dec, [facility] [place] [facility] [address] [id number] [place] [address]- 1656 Dec, [facility] [place] [facility] [address] [id number] [place] [address]- 7191 November, [facility] [place] [facility] [address] [id number] [place] [address]- 5622 November, [facility] [place] [facility] [address] [id number] [place] [address]- 1233 Oct, [facility] [place] [facility] [address] [id number] [place] [address]- 4708 Oct, [facility] [place] [facility] [address] [id number] [place] [address]- 7408 Sep, [facility] [place] [facility] [address] [id number] [place] [address]- 1502 Sep, [facility] [place] [facility] [address] [id number] [place] [address]- 3278 Sep, [facility] [place] [facility] [address] [id number] [place] [address]- 4546 Sep, [facility] [place] [facility] [address] [id number] [place] [address]- 6301 Aug, [facility] [place] [facility] [address] [id number] [place] [address]- 5922 Aug, [facility] [place] [facility] [address] [id number] [place] [address]- 7017 Aug, [facility] [place] [facility] [address] [id number] [place] [address]- 9514 Aug, [facility] [place] [facility] [address] [id number] [place] [address]- 0065 Aug, [facility] [place] [facility] [address] [id number] [place] [address]- 3507 Aug, [facility] [place] [facility] [address] [id number] [place] [address]- 9833 Jul, [facility] [place] [facility] [address] [id number] [place] [address]- 5130 Jul, [facility] [place] [facility] [address] [id number] [place] [address]- 8212 Jul, [facility] [place] [facility] [address] [id number] [place] [address]- 1196 Jul, [facility] [place] [facility] [address] [id number] [place] [address]- 7887 Jul, [facility] [place] [facility] [address] [id number] [place] [address] Jul, [facility] [place] [facility] [address] [id number] [address] Jul, [facility] [place] [facility] [address] [id number] [place] [address] Jul, [facility] [place] [facility] [address] [id number] [place] [address] Jun, [facility] [place] [facility] [address] [id number] [place] [address] Jun, [facility] [place] [facility] [address] [id number] [place] [address] Jun, [facility] [address] [id number] [place] [address] Jun, [facility] [place] [facility] [address] [id number] [place] [address] Jun, [facility] [place] [facility] [address] [id number] [place] [address] Jun, [facility] [place] [facility] [address] [id number] [place] [address] May, [facility] [place] [facility] [address] [id number] [place] [address] May, [facility] [place] [facility] [address] [id number] [place] [address] May, [facility] [place] [facility] [address] [id number] [place] [address] May, [facility] [place] [facility] [address] [id number] [place] [address] Apr, [facility] [place] [facility] [address] [id number] [place] [address] Apr, [facility] [place] [facility] [address] [facility] [id number] [place] [address] 08 Apr, 2013 [facility] [place] [facility] [address] [id number] [place] [address] 07 Apr, 2013 [facility] [place] [facility] [address] [id number] [place] [address] 25 Mar, 2013 [facility] [place] [facility] [address] [id number] [place] [address] 23 Mar, 2013 [facility] [place] [facility] [address] [id number] [place] [address] 16 Mar, 2013 [facility] [place] [facility] [address] [id number] [place] [address] 12 Mar, 2013 [facility] [place] [facility] [address] [id number] [place] [address] Mar, [facility] [address] [id number] [place] [address] Mar, [facility] [place] [facility] [address] [id number] [place] [address] Feb, [facility] [place] [facility] [address] [id number] [place] [address] Feb, [facility] [address] [id number] [place] [address] Feb, [facility] [address] [id number] [place] [address] Feb, [facility] [address] [id number] [place] [address] Jan, [facility] [address] [id number] [place] [address] Dec, [facility] [address] [id number] [place] [address] November, [facility] [address] [id number] [place] [address] Sep, [facility] [address] [id number] [place] [address] Aug, [facility] [address] [id number] [place] [address] Aug, [facility] [place] [facility] [address] [id number] [place] [address] Jul, [facility] [place] [facility] [address] [id number] [place] [address] Jul, [facility] [place] [facility] [address] [id number] [place] [address] Jun, [facility] [place] [facility] [address] [id number] [place] [address] Jun, [facility] [place] [facility] [address] [id number] [place] [address] Jun, [facility] [place] [facility] [address] [id number] [place] [address] Jun, [facility] [place] [facility] [address] [id number] [place] [address] Jun, [facility] [place] [facility] [address] [id number] [place] [address] Jun, [facility] [place] [facility] [address] [id number] [place] [address] 30 May, 2012 [facility] [place] [facility] [address] [id number] [place] [address] 29 May, 2012 [facility] [place] [facility] [address] [id number] [place] [address] 28 May, 2012 [facility] [place] [facility] [address] [id number] [place] [address] 28 May, 2012 [facility] [place] [facility] [address] [id number] [place] [address] May, [facility] [place] [facility] [address] [id number] [place] [address] May, [facility] [place] [facility] [address] [id number] [place] [address] 15 May, 2012 [facility] [place] [facility] [address] [id number] [place] [address] 15 May, 2012 [facility] [place] [facility] [address] [id number] [place] [address] 14 May, 2012 [facility] [place] [facility] [address] [id number] [place] [address] 14 May, 2012 [facility] [place] [facility] [address] [id number] [place] [address] 12 May, 2012 [facility] [place] [facility] [address] [id number] [place] [address] May, [facility] [place] [facility] [address] [id number] [place] [address] May, [facility] [place] [facility] [address] [id number] [place] [address] May, [facility] [place] [facility] [address] [id number] [place] [address] May, [facility] [place] [facility] [address] [id number] [place] [address] Apr, [facility] [place] [facility] [address] [id number] [place] [address] Apr, [facility] [place] [facility] [address] [id number] [place] [address] Apr, [facility] [place] [facility] [address] [id number] [place] [address] Apr, [facility] [place] [facility] [address] [id number] [place] [address] Apr, [facility] [place] [facility] [address] [id number] [place] [address] Apr, [facility] [place] [facility] [address] [id number] [place] [address] Apr, [facility] [place] [facility] [address] [id number] [place] [address] Apr, [facility] [place] [facility] [address] [id number] [place] [address] Apr, [facility] [place] [facility] [address] [id number] [place] [address] 2012 Apr, [facility] [place] [facility] [address] [id number] [place] [address] Mar, [facility] [place] [facility] [address] [id number] [place] [address] 24 Mar, 2012 [facility] [address] [id number] [address] Mar, [facility] [id number] [address] Mar, [facility] [address] [id number] [address] Feb, [facility] [place] [address] [facility] [id number] [address] Feb, [facility] [place] [address] [facility] [id number] [address] Feb, [facility] [place] [id number] [address] Feb, [facility] [place] [id number] [address] Feb, [facility] [place] [id number] [address] November, [facility] [place] [address] [id number] [address] Aug, [facility] [place] [address] [id number] [address] May, [facility] [place] [address] [id number] [address] May, [facility] [place] [address] [id number] [address] Apr, [facility] [place] [address] [id number] [address] Mar, IMMUNIZATIONS No Known Immunizations SOCIAL HISTORY Never Assessed REASON FOR VISIT LAURITA Heller--Pending PLAN OF CARE VITAL SIGNS MEDICATIONS Unknown [...]
--- OUTSIDE RECORDS SUMMARY | 2018-09-03 14:55 | XMS REPORT ---
Author Author RILEY SCHRADER [facility] Address [address] [place] [address] Care Team Providers Care Labeler Name Role Phone RILEY SCHRADER Unavailable PROBLEMS Type Condition ICD9-CM Code [id number] Code Onset Dates Condition Status SNOMED Code Problem Psoriasis L40.9 Active 9655822 Problem Rheumatoid arthritis involving multiple sites with positive rheumatoid factor M05.79 Active 976770781 Problem Vision loss, left eye H54.62 Active 37492669 Problem Primary insomnia F51.01 Active 1732087 Problem Other elevated white blood cell (WBC) count D72.828 Active 669651429 Problem Essential hypertension I10 Active 60514198 Problem Hematochezia K92.1 Active 714394444 Problem Type 2 diabetes mellitus with hyperglycemia, without long-term current use of insulin E11.65 Active 79170328 Problem Tobacco use Z72.0 Active 721383740 Problem Renal cyst, right N28.1 Active 30020480 Problem Idiopathic pulmonary fibrosis J84.112 Active 722895433 Problem Chronic obstructive pulmonary disease, unspecified J44.9 Active 40510718 Problem Lactic acidosis E87.2 Active 99183698 Problem Hyperlipidemia E78.5 Active 48521283 ALLERGIES No Information ENCOUNTERS Encounter Location Date Diagnosis [facility] [id number], [place] [address] Jan, [facility] [id number], [place] [address] November, [facility] [id number] [place] [address] 46952- 0408 November, Rheumatoid arthritis involving multiple sites with positive rheumatoid factor M05.79 [facility] [id number] [place] [address] 55889- 5448 November, Rheumatoid arthritis involving multiple sites with positive rheumatoid factor M05.79 [place] [facility] [address], [place] [address] November, Rheumatoid arthritis involving multiple sites with positive rheumatoid factor M05.79 [facility] [id number] [place] [address] 39374- 3590 Oct, Rheumatoid arthritis involving multiple sites with positive rheumatoid factor M05.79 [facility] [id number] [place] [address] 66755- 5703 Oct, [facility] [id number] [place] [address] 58148- 4076 Oct, Rheumatoid arthritis involving multiple sites with positive rheumatoid factor M05.79 [facility] [id number] [place] [address] 39260- 2691 Oct, Rheumatoid arthritis involving multiple sites with positive rheumatoid factor M05.79 ; Type 2 diabetes mellitus with hyperglycemia, without long-term current use of insulin E11.65 ; Hyperlipidemia E78.5 and Other elevated white blood cell (WBC) count D72.828 [place] [id number] [place] [address] 65138- 5052 Oct, Chronic obstructive pulmonary disease, unspecified J44.9 [facility] [id number] [place] [address] 90339- 0578 Oct, Rheumatoid arthritis involving multiple sites with positive rheumatoid factor M05.79 [place] [facility] [id number] [place] [address] 78137- 3139 Oct, Type 2 diabetes mellitus with hyperglycemia, without long- term current use of insulin E11.65 [facility] [facility] [id number] [place] [address] 39536- 1569 Sep, [facility] [id number] [place] [address] 80723- 8000 Sep, Rheumatoid arthritis involving multiple sites with positive rheumatoid factor M05.79 ; Visit for TB skin test Z11.1 and Psoriasis L40.9 [facility] [id number] [place] [address] 23664- 6022 Sep, Type 2 diabetes mellitus with hyperglycemia, without long- term current use of insulin E11.65 ; Rheumatoid arthritis involving multiple sites with positive rheumatoid factor M05.79 ; Hyperlipidemia E78.5 ; Essential hypertension I10 ; Other elevated white blood cell (WBC) count D72.828 ; Primary insomnia F51.01 and Tobacco use Z72.0 [place] [address] 18182- 0534 Sep, [facility] [address] 14102- 9366 Aug, Type 2 diabetes mellitus with hyperglycemia, without long- term current use of insulin E11.65 and Hyperlipidemia E78.5 [facility] [id number] [place] [address] 43720- 6068 Jul, [facility] [id number] [place] [address] 87507- 0657 Jul, Rheumatoid arthritis involving multiple sites with positive rheumatoid factor M05.79 [facility] [facility] [address] 87697- 6806 Jul, Rheumatoid arthritis involving multiple sites with positive rheumatoid factor M05.79 [facility] [id number] [place] [address] 80185- 5447 Jun, Essential hypertension I10 and Hyperlipidemia E78.5 [facility] [id number] [place] [address] 72374- 4761 Jun, Chronic obstructive pulmonary disease, unspecified J44.9 [facility] [id number] [place] [address] 69439- 0515 Jun, [place] [address] 20425- 0295 May, Type 2 diabetes mellitus without complication E11.9 ; Rheumatoid arthritis involving multiple sites with positive rheumatoid factor M05.79 ; Psoriasis L40.9 and Essential hypertension I10 [facility] [id number] [place] [address] [id number] May, Dental examination Z01.20 and Dental caries K02.9 [facility] [address] [place] [address] 02707- 5766 Apr, Type 2 diabetes mellitus without complication E11.9 ; Type 2 diabetes mellitus with hyperglycemia, without long-term current use of insulin E11.65 ; Idiopathic pulmonary fibrosis J84.112 ; Essential hypertension I10 ; Tobacco use Z72.0 ; Rheumatoid arthritis involving multiple sites with positive rheumatoid factor M05.79 ; Hyperlipidemia E78.5 and Chronic obstructive pulmonary disease, unspecified J44.9 [facility] [address] [place] [address] 69014- 2185 Apr, Dental examination Z01.20 [facility] [id number] [place] [address] 90756- 8302 Apr, [facility] [id number] [place] [address] 22431- 9544 Apr, [facility] [id number] [place] [address] 98008- 4586 Apr, [facility] [id number] [place] [address] 36270- 3505 Apr, [facility] [id number] [place] [address] 88072- 9912 Apr, [facility] [address] [place] [address] 27175- 0119 Apr, Type 2 diabetes mellitus without complication E11.9 and Essential hypertension I10 [facility] [address], [place] [address]- 3959 Mar, [facility] [id number] [place] [address] 49966- 9482 Mar, Rheumatoid arthritis involving multiple sites with positive rheumatoid factor M05.79 [facility] [address] [place] [address] 69031- 2181 Mar, Type 2 diabetes mellitus without complication E11.9 ; Essential hypertension I10 and Hyperlipidemia E78.5 [facility] [address], [place] [address]- 3243 Mar, Rheumatoid arthritis involving multiple sites with positive rheumatoid factor M05.79 [facility] [address], [place] [address]- 0376 Mar, [facility] [id number] [place] [address] 27337- 4009 Mar, Hyperlipidemia E78.5 ; Essential hypertension I10 and Type 2 diabetes mellitus without complication E11.9 [facility] [id number] [place] [address] 16549- 0912 Feb, Rheumatoid arthritis involving multiple sites with positive rheumatoid factor M05.79 and Essential hypertension I10 [facility] [id number] [place] [address] 15738- 6324 Jan, Rheumatoid arthritis involving multiple sites with positive rheumatoid factor M05.79 [facility] [id number] [place] [address] 36731- 8318 Dec, Rheumatoid arthritis involving multiple sites with positive rheumatoid factor M05.79 [facility] [id number] [place] [address] 81167- 3697 Dec, [facility] [id number] [place] [address] 37803- 1039 November, Rheumatoid arthritis involving multiple sites with positive rheumatoid factor M05.79 and Psoriasis L40.9 [facility] [address] [place] [address] 60626- 3337 November, Hyperlipidemia E78.5 [facility] [id number] [place] [address] 06384- 1114 November, Type 2 diabetes mellitus without complication E11.9 [facility] [address] [place] [address] 06334- 2228 November, [facility] [id number] [place] [address] 97509- 0039 November, Rheumatoid arthritis involving multiple sites with positive rheumatoid factor M05.79 ; Hyperlipidemia E78.5 ; Type 2 diabetes mellitus without complication E11.9 ; Idiopathic pulmonary fibrosis J84.112 and Tobacco use Z72.0 [facility] [id number] [place] [address] 61893- 5568 Oct, Essential hypertension I10 and Rheumatoid arthritis involving multiple sites with positive rheumatoid factor M05.79 [place] [address] 655529- 2994 Sep, Rheumatoid arthritis involving multiple sites with positive rheumatoid factor M05.79 and Psoriasis L40.[address] 76987- 4781 Jul, Rheumatoid arthritis involving multiple sites with positive rheumatoid factor M05.79 [address] [address] 02586- 4011 Jul, Idiopathic pulmonary fibrosis J84.112 [address] [address] [id number] Jul, [place] [address] 89408- 3553 Jul, Idiopathic pulmonary fibrosis J84.112 [facility] [id number] [place] [address] 14153- 3613 Jul, Idiopathic pulmonary fibrosis J84.112 and Hypoxia R09.02 [facility] [id number] [place] [address] 39015- 4115 Jul, Cough R05 and Idiopathic pulmonary fibrosis J84.112 [facility] [id number] [place] [address] 91432- 3907 Apr, Type 2 diabetes mellitus without complication E11.9 ; Rheumatoid arthritis involving multiple sites with positive rheumatoid factor M05.79 ; Psoriasis L40.9 ; Hyperlipidemia E78.5 ; Idiopathic pulmonary fibrosis J84.112 and Essential hypertension I10 [place] [address] 22062- 8308 Feb, [facility] [address], [place] [address]- 8379 Feb, [facility] [id number] [place] [address] 34962- 7360 Dec, Right ankle gives way M25.371 [facility] [id number] [place] [address] 90242- 0951 November, [facility] [id number] [place] [address] 27655- 2779 November, Wrist pain, left M25.532 [address] [facility] [id number] [place] [address] 62872- 9740 Sep, Psoriasis L40.9 [facility] [id number] [place] [address] 81453- 7430 Sep, COPD exacerbation J44.1 [address] [id number] [place] [address] 27428- 0250 Aug, [facility] [id number] [place] [address] 85875- 4783 Aug, Rheumatoid arthritis involving multiple sites with positive rheumatoid factor M05.79 and Hyperlipidemia E78.5 [facility] [address], [place] [address]- 7852 Aug, [facility] [id number] [place] [address] 73055- 0803 Aug, Psoriasis L40.9 ; Rheumatoid arthritis involving multiple sites with positive rheumatoid factor M05.79 and Essential hypertension I10 [facility] [address] [place] [address] 08187- 1386 Jul, [facility] [id number] [place] [address] 70565- 1734 Jul, [facility] [address], [place] [address]- 3909 Jul, Type 2 diabetes mellitus without complication E11.9 ; Hyperlipidemia E78.5 and Rheumatoid arthritis involving multiple sites with positive rheumatoid factor M05.79 [facility] [id number] [place] [address] 84090- 4090 Jun, [facility] [id number] [place] [address] 182049- 9512 Apr, [facility] [id number] [place] [address] 40689- 2700 Mar, [facility] [id number] [place] [address] 40437- 8761 Mar, [facility] [id number] [place] [address] 05541- 3805 Mar, Rheumatoid arthritis 714.0 ; Other psoriasis 696.1 and Cellulitis, axillary fold 682.3 [address] [facility] [id number] [place] [address] 35566- 5811 Jan, [facility] [id number] [place] [address] 33654- 8711 Dec, [facility] [id number] [place] [address] 03393- 1230 Dec, Other and unspecified hyperlipidemia 272.4 ; Other psoriasis 696.1 and Diabetes mellitus without mention of complication, type II or unspecified type, not stated as uncontrolled 250.00 [address] [place] [address] [place] [address] 16319- 7113 Dec, [facility] [id number] [place] [address] 33720- 3589 November, [facility] [id number] [place] [address] 91724- 9643 Oct, [facility] [id number] [place] [address] 62368- 5250 Oct, [facility] [id number] [place] [address] 55405- 7027 Sep, [facility] [place] [facility] [address] [id number] [place] [address]- 4714 24 Sep, 2014 [facility] [place] [facility] [address] [id number] [place] [address]- 4102 20 Sep, 2014 [facility] [place] [facility] [address] [id number] [place] [address]- 5346 20 Sep, 2014 [facility] [place] [facility] [address] [id number] [place] [address]- 2776 13 Sep, 2014 [facility] [place] [facility] [address] [id number] [place] [address]- 1282 Sep, [facility] [place] [facility] [address] [id number] [place] [address]- 8126 Sep, [facility] [place] [facility] [address] [id number] [place] [address]- 5285 Sep, [facility] [place] [facility] [address] [id number] [place] [address]- 1504 Sep, [facility] [place] [facility] [address] [id number] [place] [address]- 7204 Sep, [facility] [place] [facility] [address] [id number] [place] [address]- 4128 Jul, [facility] [place] [facility] [address] [id number] [place] [address]- 9453 Jul, [facility] [place] [facility] [address] [id number] [place] [address]- 7107 16 Jul, 2014 [facility] [place] [facility] [address] [id number] [place] [address]- 1877 16 Jul, 2014 [facility] [place] [facility] [address] [id number] [place] [address]- 6033 15 Jul, 2014 [facility] [place] [facility] [address] [id number] [place] [address]- 5876 15 Jul, 2014 [facility] [place] [facility] [address] [id number] [place] [address]- 1977 Jul, [facility] [place] [facility] [address] [id number] [place] [address]- 8436 Jul, [facility] [place] [facility] [address] [id number] [place] [address]- 0184 Jun, [facility] [place] [facility] [address] [id number] [place] [address]- 8442 Jun, [facility] [place] [facility] [address] [id number] [place] [address]- 4705 Jun, [facility] [place] [facility] [address] [id number] [place] 6635 Jun, [facility] [place] [facility] [address] [id number] [place] [address]- 9964 Jun, [facility] [place] [facility] [address] [id number] [place] [address]- 3347 Jun, [facility] [place] [facility] [address] [id number] [place] [address]- 4327 Apr, [facility] [place] [facility] [address] [id number] [place] [address]- 1060 Apr, [facility] [place] [facility] [address] [id number] [place] [address]- 5342 Mar, [facility] [place] [facility] [address] [id number], [place] [address]- 4934 Mar, [facility] [place] [facility] [address] [id number], [place] [address]- 7306 Feb, [facility] [place] [facility] [address] [id number] [place] [address]- 8328 Feb, [facility] [place] [facility] [address] [id number] [place] [address]- 2901 Jan, [facility] [place] [facility] [address] [id number] [place] [address]- 8988 Jan, [facility] [place] [facility] [address] [id number] [place] [address]- 7221 Jan, [facility] [place] [facility] [address] [id number] [place] [address]- 5797 Jan, [facility] [place] [facility] [address] [id number] [place] [address]- 3534 Jan, [facility] [place] [facility] [address] [id number] [place] [address]- 8033 Dec, [facility] [place] [facility] [address] [id number] [place] [address]- 9880 Dec, [facility] [place] [facility] [address] [id number] [place] [address]- 8633 Dec, [facility] [place] [facility] [address] [id number] [place] [address]- 2270 Dec, [facility] [place] [facility] [address] [id number] [place] [address]- 4578 November, [facility] [place] [facility] [address] [id number] [place] [address]- 2172 November, [facility] [place] [facility] [address] [id number] [place] [address]- 4958 Oct, [facility] [place] [facility] [address] [id number] [place] [address]- 7092 Oct, [facility] [place] [facility] [address] [id number] [place] [address]- 2159 Sep, [facility] [place] [facility] [address] [id number] [place] [address]- 8034 Sep, [facility] [place] [facility] [address] [id number] [place] [address]- 4472 Sep, [facility] [place] [facility] [address] [id number] [place] [address]- 1296 Sep, [facility] [place] [facility] [address] [id number] [place] [address]- 1968 Aug, [facility] [place] [facility] [address] [id number] [place] [address]- 9566 Aug, [facility] [place] [facility] [address] [id number] [place] [address]- 1879 Aug, [facility] [place] [facility] [address] [id number] [place] [address]- 4074 Aug, [facility] [place] [facility] [address] [id number] [place] [address]- 3812 Aug, [facility] [place] [facility] [address] [id number] [place] [address]- 9924 Aug, [facility] [place] [facility] [address] [id number] [place] [address]- 0524 Jul, [facility] [place] [facility] [address] [id number] [place] [address]- 0525 Jul, [facility] [place] [facility] [address] [id number] [place] [address]- 5438 Jul, [facility] [place] [facility] [address] [id number] [place] [address]- 7078 Jul, [facility] [place] [facility] [address] [id number] [place] [address]- 9433 Jul, [facility] [place] [facility] [address] [id number] [place] [address]- 2279 Jul, [facility] [place] [facility] [address] [id number], [place] [address]- 6118 Jul, [facility] [place] [facility] [address] [id number] [place] [address]- 8128 Jul, [facility] [place] [facility] [address] [id number] [place] [address]- 9485 Jun, [facility] [place] [facility] [address] [id number] [place] [address]- 9165 Jun, [facility] [place] [facility] [address] [id number] [place] [address]- 9389 Jun, [facility] [address] [id number] [place] [address]- 3943 Jun, [facility] [place] [facility] [address] [id number] [place] [address]- 9677 Jun, [facility] [place] [facility] [address] [id number] [place] [address]- 9691 Jun, [facility] [place] [facility] [address] [id number] [place] [address]- 1646 May, [facility] [place] [facility] [address] [id number] [place] [address]- 0545 May, [facility] [place] [facility] [address] [id number] [place] [address]- 3664 May, [facility] [place] [facility] [address] [id number] [place] [address]- 0644 May, [facility] [place] [facility] [address] [id number] [place] [address]- 5874 Apr, [facility] [place] [facility] [address] [id number] [place] [address]- 4917 Apr, [facility] [place] [facility] [address] [facility] [id number] [place] [address]- 5432 08 Apr, 2013 [facility] [place] [facility] [address] [id number] [place] [address]- 3168 07 Apr, 2013 [facility] [place] [facility] [address] [id number] [place] [address]- 9248 25 Mar, 2013 [facility] [place] [facility] [address] [id number] [place] [address]- 4216 23 Mar, 2013 [facility] [place] [facility] [address] [id number] [place] [address]- 5525 16 Mar, 2013 [facility] [place] [facility] [address] [id number] [place] [address]- 2413 12 Mar, 2013 [facility] [place] [facility] [address] [id number] [place] [address]- 3252 Mar, [facility] [address] [id number] [place] [address]- 7793 Mar, [facility] [place] [facility] [address] [id number] [place] [address]- 0462 Feb, [facility] [place] [facility] [address] [id number] [place] [address]- 0880 Feb, [facility] [address] [id number] [place] [address]- 6724 Feb, [facility] [address] [id number] [place] [address] Feb, [facility] [address] [id number] [place] [address] Jan, [facility] [address] [id number] [place] [address] Dec, [facility] [address] [id number] [place] [address] November, [facility] [address] [id number] [place] [address] Sep, [facility] [address] [id number] [place] [address] Aug, [facility] [address] [id number] [place] [address] Aug, [facility] [place] [facility] [address] [id number] [place] [address] Jul, [facility] [place] [facility] [address] [id number] [place] [address] Jul, [facility] [place] [facility] [address] [id number] [place] [address] Jun, [facility] [place] [facility] [address] [id number] [place] [address] Jun, [facility] [place] [facility] [address] [id number] [place] [address] Jun, [facility] [place] [facility] [address] [id number] [place] [address] Jun, [facility] [place] [facility] [address] [id number] [place] [address] Jun, [facility] [place] [facility] [address] [id number] [place] [address] Jun, [facility] [place] [facility] [address] [id number] [place] [address] 30 May, 2012 [facility] [place] [facility] [address] [id number] [place] [address] 29 May, 2012 [facility] [place] [facility] [address] [id number] [place] [address] 28 May, 2012 [facility] [place] [facility] [address] [id number] [place] [address] 28 May, 2012 [facility] [place] [facility] [address] [id number] [place] [address] May, [facility] [place] [facility] [address] [id number] [place] [address] May, [facility] [place] [facility] [address] [id number] [place] [address] 15 May, 2012 [facility] [place] [facility] [address] [id number] [place] [id number] 15 May, 2012 [facility] [place] [facility] [address] [id number] [place] [address] 14 May, 2012 [facility] [place] [facility] [address] [id number] [place] [address] 14 May, 2012 [facility] [place] [facility] [address] [id number] [place] [address] 12 May, 2012 [facility] [place] [facility] [address] [id number] [place] [address] May, [facility] [place] [facility] [address] [id number] [place] [address] May, [facility] [place] [facility] [address] [id number] [place] [address] May, [facility] [place] [facility] [address] [id number] [place] [address] May, [facility] [place] [facility] [address] [id number] [place] [address] Apr, [facility] [place] [facility] [address] [id number] [place] [address] Apr, [facility] [place] [facility] [address] [id number] [place] [address] Apr, [facility] [place] [facility] [address] [id number] [place] [address] Apr, [facility] [place] [facility] [address] [id number] [place] [address] Apr, [facility] [place] [facility] [address] [id number] [place] [address] Apr, [facility] [place] [facility] [address] [id number] [place] [address] Apr, [facility] [place] [facility] [address] [id number] [place] [address] Apr, [facility] [place] [facility] [address] [id number] [place] [address] Apr, [facility] [place] [facility] [address] [id number] [place] [address] Apr, [facility] [place] [facility] [address] [id number] [place] [address] Mar, [facility] [place] [facility] [address] [id number] [place] [address] 24 Mar, 2012 [facility] [address] [id number] [address] Mar, [facility] [id number], [place] [address] Mar, [facility] [address] [id number] [address] Feb, [facility] [address] [facility] [id number] [address] Feb, [facility] [address] [facility] [id number], [place] [address] Feb, [facility] [id number] [address] Feb, [facility] [id number], [place] [address] Feb, [facility] [id number] [address] November, [facility] [id number], [place] [address] Aug, [facility] [id number], [place] [address] May, [facility] [address] [id number] [address] May, [facility] [address] [id number] [address] Apr, [facility] [address] [id number] [address] Mar, IMMUNIZATIONS Vaccine Route Administration Date Status HUMIRA (PT'S OWN) SC Subcutaneous October 31, 2017 Administered SOCIAL HISTORY Never Assessed REASON FOR VISIT Injection - SIMRAN Arguello PLAN OF CARE Activity Details Follow Up 2 Weeks Reason:Next Humira injection. VITAL SIGNS MEDICATIONS Unknown Medications RESULTS No Results PROCEDURES Procedure Date Ordered Result Body Site HUMIRA (PT'S OWN) October 31, 2017 THER/PROPH/DIAG INJ, SC/IM October 31, 2017 INSTRUCTIONS MEDICATIONS ADMINISTERED No Known Medications [...]
--- OUTSIDE RECORDS SUMMARY | 2018-09-03 14:55 | XMS REPORT ---
Author Author GENEVIEVE JOSE F [facility] Address [address] [place] [address] Care Team Providers Care Director Speech Name Role Phone GENEVIEVESANTOSH LEMAHANY Unavailable PROBLEMS Type Condition ICD9-CM Code [id number] Code Onset Dates Condition Status SNOMED Code Problem Psoriasis L40.9 Active 9912035 Problem Rheumatoid arthritis involving multiple sites with positive rheumatoid factor M05.79 Active 370840656 Problem Vision loss, left eye H54.62 Active 81806114 Problem Primary insomnia F51.01 Active 4817046 Problem Other elevated white blood cell (WBC) count D72.828 Active 201648899 Problem Essential hypertension I10 Active 41180420 Problem Hematochezia K92.1 Active 099162350 Problem Type 2 diabetes mellitus with hyperglycemia, without long-term current use of insulin E11.65 Active 70664367 Problem Tobacco use Z72.0 Active 183785650 Problem Renal cyst, right N28.1 Active 09167145 Problem Idiopathic pulmonary fibrosis J84.112 Active 788689013 Problem Chronic obstructive pulmonary disease, unspecified J44.9 Active 45629635 Problem Lactic acidosis E87.2 Active 04877615 Problem Hyperlipidemia E78.5 Active 34240543 ALLERGIES No Information ENCOUNTERS Encounter Location Date Diagnosis [facility] [id number] [address] Jan, [facility] [id number] [address] November, [facility] [id number] [place] [address] 20731- 2777 November, Rheumatoid arthritis involving multiple sites with positive rheumatoid factor M05.79 [facility] [id number], [place] [address] 9657 November, Rheumatoid arthritis involving multiple sites with positive rheumatoid factor M05.79 [place] [address], [place] [address] 7[address] November, Rheumatoid arthritis involving multiple sites with positive rheumatoid factor M05.79 [place] [id number] [place] [address] 80671- 7625 Oct, Rheumatoid arthritis involving multiple sites with positive rheumatoid factor M05.79 [place] [id number] [place] [address] 83532- 0428 Oct, [place] [id number] [place] [address] 27337- 3294 Oct, Rheumatoid arthritis involving multiple sites with positive rheumatoid factor M05.79 [place] [id number] [place] [address] 33698- 5938 Oct, Rheumatoid arthritis involving multiple sites with positive rheumatoid factor M05.79 ; Type 2 diabetes mellitus with hyperglycemia, without long-term current use of insulin E11.65 ; Hyperlipidemia E78.5 and Other elevated white blood cell (WBC) count D72.828 [place] [id number] [place] [address] 15513- 3646 Oct, Chronic obstructive pulmonary disease, unspecified J44.9 [place] [address] [place] [address] 08686- 1368 Oct, Rheumatoid arthritis involving multiple sites with positive rheumatoid factor M05.79 [place] [id number] [place] [address] 72835- 2889 Oct, Type 2 diabetes mellitus with hyperglycemia, without long- term current use of insulin E11.65 [place] [address] [address] 78[address] Sep, [place] [id number] [place] [address] 02067- 5481 Sep, Rheumatoid arthritis involving multiple sites with positive rheumatoid factor M05.79 ; Visit for TB skin test Z11.1 and Psoriasis L40.9 [place] [id number] [place] [address] 48483- 7036 Sep, Type 2 diabetes mellitus with hyperglycemia, without long- term current use of insulin E11.65 ; Rheumatoid arthritis involving multiple sites with positive rheumatoid factor M05.79 ; Hyperlipidemia E78.5 ; Essential hypertension I10 ; Other elevated white blood cell (WBC) count D72.828 ; Primary insomnia F51.01 and Tobacco use Z72.0 [place] [id number] [place] [address] 60484- 3304 Sep, [place] [id number] [place] [address] 62628- 1720 Aug, Type 2 diabetes mellitus with hyperglycemia, without long- term current use of insulin E11.65 and Hyperlipidemia E78.5 [place] [id number] [place] [address] 79049- 0981 Jul, [place] [address] 55265- 2790 Jul, Rheumatoid arthritis involving multiple sites with positive rheumatoid factor M05.79 [place] [address] 76822- 8711 Jul, Rheumatoid arthritis involving multiple sites with positive rheumatoid factor M05.79 [place] [id number] [place] [address] 36840- 8526 Jun, Essential hypertension I10 and Hyperlipidemia E78.5 [place] [id number] [place] [address] 25837- 3663 Jun, Chronic obstructive pulmonary disease, unspecified J44.9 [facility] [id number] [place] [address] 33489- 3019 Jun, [place] [id number] [place] [address] 49558- 8140 May, Type 2 diabetes mellitus without complication E11.9 ; Rheumatoid arthritis involving multiple sites with positive rheumatoid factor M05.79 ; Psoriasis L40.9 and Essential hypertension I10 [facility] [id number] [place] [address] [id number] May, Dental examination Z01.20 and Dental caries K02.9 [facility] [address] [address] 3633 Apr, Type 2 diabetes mellitus without [...] [facility] [address], [place] [address]- 2155 Apr, Dental examination Z01.20 [facility] [address], [place] [address]- 5545 Apr, [facility] [id number] [place] [address] 66818- 2128 Apr, [facility] [id number] [place] [address] 68818- 4045 Apr, [facility] [id number] [place] [address] 51114- 7142 Apr, [facility] [address], [place] [address]- 0774 Apr, [facility] [address], [place] [address]- 7646 Apr, Type 2 diabetes mellitus without complication E11.9 and Essential hypertension I10 [facility] [address], [place] [address]- 9950 Mar, [facility] [id number] [address]- 5235 Mar, Rheumatoid arthritis involving multiple sites with positive rheumatoid factor M05.79 [facility] [address], [place] [address]- 4667 Mar, Type 2 diabetes mellitus without complication E11.9 ; Essential hypertension I10 and Hyperlipidemia E78.5 [facility] [address], [place] [address]- 8208 Mar, Rheumatoid arthritis involving multiple sites with positive rheumatoid factor M05.79 [facility] [address] [address]- 0506 Mar, [facility] [id number] [place] [address] 75291- 9882 Mar, Hyperlipidemia E78.5 ; Essential hypertension I10 and Type 2 diabetes mellitus without complication E11.9 [facility] [address] [place] [address] 98856- 4369 Feb, Rheumatoid arthritis involving multiple sites with positive rheumatoid factor M05.79 and Essential hypertension I10 [facility] [id number] [place] [address] 43025- 0077 Jan, Rheumatoid arthritis involving multiple sites with positive rheumatoid factor M05.79 [facility] [id number] [place] [address] 62574- 3449 Dec, Rheumatoid arthritis involving multiple sites with positive rheumatoid factor M05.79 [facility] [id number] [place] [address] 95230- 4577 Dec, [facility] [id number] [place] [address] 08115- 1179 November, Rheumatoid arthritis involving multiple sites with positive rheumatoid factor M05.79 and Psoriasis L40.9 [facility] [address], [place] [address]- 9277 November, Hyperlipidemia E78.5 [facility] [id number] [place] [address] 38733- 9798 November, Type 2 diabetes mellitus without complication E11.9 [facility] [address] [address]- 5915 November, [facility] [id number] [place] [address] 50544- 3361 November, Rheumatoid arthritis involving multiple sites with positive rheumatoid factor M05.79 ; Hyperlipidemia E78.5 ; Type 2 diabetes mellitus without complication E11.9 ; Idiopathic pulmonary fibrosis J84.112 and Tobacco use Z72.0 [place] [id number] [place] [address] 09020- 5046 Oct, Essential hypertension I10 and Rheumatoid arthritis involving multiple sites with positive rheumatoid factor M05.79 [place] [address] 70797- 7660 Sep, Rheumatoid arthritis involving multiple sites with positive rheumatoid factor M05.79 and Psoriasis L40.[address] 65761- 8843 Jul, Rheumatoid arthritis involving multiple sites with positive rheumatoid factor M05.79 [address] [address] 38813- 1605 Jul, Idiopathic pulmonary fibrosis J84.112 [place] [id number] Jul, [place] [address] 31619- 3936 Jul, Idiopathic pulmonary fibrosis J84.112 [address] [address] 29247- 1821 Jul, Idiopathic pulmonary fibrosis J84.112 and Hypoxia R09.02 [id number] [place] [address] 12569- 5416 Jul, Cough R05 and Idiopathic pulmonary fibrosis J84.112 [place] [id number] [place] [address] 11568- 8598 Apr, Type 2 diabetes mellitus without complication E11.9 ; Rheumatoid arthritis involving multiple sites with positive rheumatoid factor M05.79 ; Psoriasis L40.9 ; Hyperlipidemia E78.5 ; Idiopathic pulmonary fibrosis J84.112 and Essential hypertension I10 [place] [address] 41675- 2736 Feb, [facility] [address] [address]- 2154 Feb, [facility] [id number] [place] [address] 72325- 5596 Dec, Right ankle gives way M25.371 [facility] [address] [place] [address] 58804- 5910 November, [facility] [id number] [place] [address] 75553- 6023 November, Wrist pain, left M25.532 [facility] [id number] [place] [address] 14477- 6258 Sep, Psoriasis L40.9 [facility] [id number] [place] [address] 50357- 6454 Sep, COPD exacerbation J44.1 [facility] [id number] [place] [address] 74394- 4721 Aug, [facility] [address] [place] [address] 32402- 6041 Aug, Rheumatoid arthritis involving multiple sites with positive rheumatoid factor M05.79 and Hyperlipidemia E78.5 [facility] [address], [place] [address]- 8911 Aug, [facility] [address] [place] [address] 63369- 3163 Aug, Psoriasis L40.9 ; Rheumatoid arthritis involving multiple sites with positive rheumatoid factor M05.79 and Essential hypertension I10 [facility] [address] [place] [address] 87058- 6329 Jul, [facility] [address] [place] [address] 20662- 0177 Jul, [facility] [address], [place] [address]- 2293 Jul, Type 2 diabetes mellitus without complication E11.9 ; Hyperlipidemia E78.5 and Rheumatoid arthritis involving multiple sites with positive rheumatoid factor M05.79 [facility] [id number] [place] [address] 33883- 4540 Jun, [facility] [id number] [place] [address] 40086- 4994 Apr, [facility] [id number] [place] [address] 71671- 2320 Mar, [facility] [address] 28865- 0021 Mar, [facility] [address] 57317- 2230 Mar, Rheumatoid arthritis 714.0 ; Other psoriasis 696.1 and Cellulitis, axillary fold 682.3 [address] [id number] [place] [address] 27275- 7801 Jan, [facility] [id number] [place] [address] 61525- 4494 Dec, [facility] [id number] [place] [address] 57097- 9665 Dec, Other and unspecified hyperlipidemia 272.4 ; Other psoriasis 696.1 and Diabetes mellitus without mention of complication, type II or unspecified type, not stated as uncontrolled 250.00 [facility] [id number] [place] [address] 88135- 5292 Dec, [facility] [id number] [place] [address] 56581- 4132 November, [facility] [id number] [place] [address] 01186- 3836 Oct, [facility] [id number] [place] [address] 90229- 1984 Oct, [facility] [id number] [place] [address] 18460- 5061 Sep, [facility] [place] [facility] [address] [id number] [place] [address]- 3139 24 Sep, 2014 [facility] [place] [facility] [address] [id number] [place] [address]- 2634 20 Sep, 2014 [facility] [place] [facility] [address] [id number] [place] [address]- 6763 20 Sep, 2014 [facility] [place] [facility] [address] [id number] [place] [address]- 6747 13 Sep, 2014 [facility] [place] [facility] [address] [id number] [place] [address]- 1228 Sep, [facility] [place] [facility] [address] [id number] [place] [address]- 0206 Sep, [facility] [place] [facility] [address] [id number] [place] [address]- 8997 Sep, [facility] [place] [facility] [address] [id number] [place] [address]- 3589 Sep, [facility] [place] [facility] [address] [id number] [place] [address]- 4437 Sep, [facility] [place] [facility] [address] [id number] [place] [address]- 9011 Jul, [facility] [place] [facility] [address] [id number] [place] [address]- 9175 Jul, [facility] [place] [facility] [address] [id number] [place] [address]- 9383 Jul, [facility] [place] [facility] [address] [id number] [place] [address]- 1254 Jul, [facility] [place] [facility] [address] [id number] [place] [address]- 2037 15 Jul, 2014 [facility] [place] [facility] [address] [id number] [place] [address]- 1715 15 Jul, 2014 [facility] [place] [facility] [address] [id number] [place] [address]- 3626 Jul, [facility] [place] [facility] [address] [id number] [place] [address]- 6976 Jul, [facility] [place] [facility] [address] [id number] [place] [address]- 2695 Jun, [facility] [place] [facility] [address] [id number] [place] [address]- 3165 Jun, [facility] [place] [facility] [address] [id number] [place] [address]- 3023 Jun, [facility] [place] [facility] [address] [id number] [place] [address]- 0270 Jun, [facility] [place] [facility] [address] [id number] [place] [address]- 1799 Jun, [facility] [place] [facility] [address] [id number] [place] [address]- 8608 Jun, [facility] [place] [facility] [address] [id number] [place] [address]- 0038 Apr, [facility] [place] [facility] [address] [id number] [place] [address]- 8211 Apr, [facility] [place] [facility] [address] [id number] [place] [address]- 4213 Mar, [facility] [place] [facility] [address] [id number] [place] [address]- 0870 Mar, [facility] [place] [facility] [address] [id number] [place] [address]- 6090 Feb, [facility] [place] [facility] [address] [id number] [place] [address]- 2900 Feb, [facility] [place] [facility] [address] [id number] [place] [address]- 3705 Jan, [facility] [place] [facility] [address] [id number] [place] [address]- 4864 Jan, [facility] [place] [facility] [address] [id number] [place] [address]- 1076 Jan, [facility] [address] [id number] [place] [address]- 0686 Jan, [facility] [place] [facility] [address] [id number] [place] [address]- 3515 Jan, [facility] [place] [facility] [address] [id number] [place] [address]- 0187 Dec, [facility] [place] [facility] [address] [id number] [place] [address]- 0214 Dec, [facility] [place] [facility] [address] [id number] [place] [address]- 1790 Dec, [facility] [place] [facility] [address] [id number] [place] [address]- 3706 Dec, [facility] [place] [facility] [address] [id number] [place] [address]- 4870 November, [facility] [place] [facility] [address] [id number] [place] [address]- 8052 November, [facility] [place] [facility] [address] [id number] [place] [address]- 3404 Oct, [facility] [place] [facility] [address] [id number] [place] [address]- 7107 Oct, [facility] [place] [facility] [address] [id number] [place] [address]- 4477 Sep, [facility] [place] [facility] [address] [id number] [place] [address]- 9746 Sep, [facility] [place] [facility] [address] [id number] [place] [address]- 8670 Sep, [facility] [place] [facility] [address] [id number] [place] [address]- 2546 Sep, [facility] [place] [facility] [address] [id number] [place] [address]- 7092 Aug, [facility] [place] [facility] [address] [id number] [place] [address]- 6165 Aug, [facility] [place] [facility] [address] [id number] [place] [address]- 0946 Aug, [facility] [place] [facility] [address] [id number] [place] [address]- 0676 Aug, [facility] [place] [facility] [address] [id number] [place] [address]- 9655 Aug, [facility] [place] [facility] [address] [id number] [place] [address]- 5711 Aug, [facility] [place] [facility] [address] [id number] [place] [address]- 3346 Jul, [facility] [place] [facility] [address] [id number] [place] [address]- 4670 Jul, [facility] [place] [facility] [address] [id number] [place] [address]- 8878 Jul, [facility] [place] [facility] [address] [id number] [place] [address]- 3446 Jul, [facility] [place] [facility] [address] [id number] [place] [address]- 8156 Jul, [facility] [place] [facility] [address] [id number] [place] [address]- 1170 Jul, [facility] [place] [facility] [address] [id number] [address]- 5778 Jul, [facility] [place] [facility] [address] [id number] [place] [address]- 1851 Jul, [facility] [place] [facility] [address] [id number] [place] [address]- 7348 Jun, [facility] [place] [facility] [address] [id number] [place] [address]- 0056 Jun, [facility] [place] [facility] [address] [id number] [place] [address]- 8184 Jun, [facility] [address] [id number] [place] [address]- 4282 Jun, [facility] [place] [facility] [address] [id number] [place] [address]- 3959 Jun, [facility] [place] [facility] [address] [id number] [place] [address]- 6816 Jun, [facility] [place] [facility] [address] [id number] [place] [address]- 3496 May, [facility] [place] [facility] [address] [id number] [place] [address]- 8156 May, [facility] [place] [facility] [address] [id number] [place] [address]- 1433 May, [facility] [place] [facility] [address] [id number] [place] [address]- 1175 May, [facility] [place] [facility] [address] [id number] [place] [address]- 7341 Apr, [facility] [place] [facility] [address] [id number] [place] [address]- 7368 Apr, [facility] [place] [facility] [address] [id number] [place] [address]- 9419 08 Apr, 2013 [facility] [place] [facility] [address] [id number] [place] [address]- 0134 07 Apr, 2013 [facility] [place] [facility] [address] [id number] [place] [address]- 2772 25 Mar, 2013 [facility] [place] [facility] [address] [id number] [place] [address]- 3806 23 Mar, 2013 [facility] [place] [facility] [address] [id number] [place] [address]- 1250 16 Mar, 2013 [facility] [place] [facility] [address] [id number] [place] [address]- 0910 Mar, [facility] [place] [facility] [address] [id number] [place] [address]- 5894 Mar, [facility] [address] [id number] [place] [address]- 9364 Mar, [facility] [address] [id number] [place] [address] Feb, [facility] [place] [facility] [address] [id number] [place] [address] Feb, [facility] [address] [id number] [place] [address] Feb, [facility] [address] [id number] [place] [address] Feb, [facility] [address] [id number] [place] [address] Jan, [facility] [address] [id number] [place] [address] Dec, [facility] [address] [id number] [place] [address] November, [facility] [address] [id number] [place] [address] Sep, [facility] [address] [id number] [place] [address] Aug, [facility] [address] [id number], [place] [address] Aug, [facility] [place] [facility] [address] [id number] [place] [address] Jul, [facility] [place] [facility] [address] [id number] [place] [address] Jul, [facility] [place] [facility] [address] [id number] [place] [address] Jun, [facility] [place] [facility] [address] [id number], [place] [address] Jun, [facility] [place] [facility] [address] [id number] [place] [address] Jun, [facility] [place] [facility] [address] [id number] [place] [address] Jun, [facility] [place] [facility] [address] [facility] [id number] [place] [address] Jun, [facility] [place] [facility] [address] [id number] [place] [address] 06 Jun, 2012 [facility] [place] [facility] [address] [id number] [place] [address] 30 May, 2012 [facility] [place] [facility] [address] [id number] [place] [address] 29 May, 2012 [facility] [place] [facility] [address] [id number] [place] [address] 28 May, 2012 [facility] [place] [facility] [address] [id number] [place] [address] 28 May, 2012 [facility] [place] [facility] [address] [facility] [id number] [place] [address] 27 May, 2012 [facility] [place] [facility] [address] [facility] [id number] [place] [address] 27 May, 2012 [facility] [place] [facility] [address] [facility] [id number] [place] [address] 15 May, 2012 [facility] [place] [facility] [address] [id number] [place] [address] 15 May, 2012 [facility] [place] [facility] [address] [id number] [place] [address] 14 May, 2012 [facility] [place] [facility] [address] [facility] [id number] [place] [id number] 14 May, 2012 [facility] [place] [facility] [address] [facility] [id number] [place] [address] 12 May, 2012 [facility] [place] [facility] [address] [id number] [place] [address] May, [facility] [place] [facility] [address] [id number] [place] [address] May, [facility] [place] [facility] [address] [id number] [place] [address] May, [facility] [place] [facility] [address] [id number] [place] [address] May, [facility] [place] [facility] [address] [id number] [place] [address] Apr, [facility] [place] [facility] [address] [id number] [place] [address] Apr, [facility] [place] [facility] [address] [id number] [place] [address] Apr, [facility] [place] [facility] [address] [id number] [place] [address] Apr, [facility] [place] [facility] [address] [id number] [place] [address] Apr, [facility] [place] [facility] [address] [id number] [place] [address] Apr, [facility] [place] [facility] [address] [id number] [place] [address] Apr, [facility] [place] [facility] [address] [id number] [place] [address] Apr, [facility] [place] [facility] [address] [id number] [place] [address] Apr, [facility] [place] [facility] [address] [id number] [place] [address] Apr, [facility] [place] [facility] [address] [id number] [place] [address] Mar, [facility] [place] [facility] [address] [id number] [place] [address] Mar, [facility] [address] [facility] [id number] [address] Mar, [facility] [id number] [address] Mar, [facility] [id number] [address] Feb, [facility] [address] [facility] [id number], [place] [address] Feb, [facility] [address] [facility] [id number], [place] [address] Feb, [facility] [id number] [place] [address] Feb, [facility] [id number], [place] [address] Feb, [facility] [id number] [address] November, [facility] [id number], [place] [address] Aug, [facility] [id number], [place] [address] May, [facility] [id number], [place] [address] May, [facility] [address] [id number] [address] Apr, [facility] [address] [id number] [address] Mar, IMMUNIZATIONS No Known Immunizations SOCIAL HISTORY Never Assessed REASON FOR VISIT Refill Request PLAN OF CARE VITAL SIGNS MEDICATIONS Medication Instructions Dosage Frequency Start Date End Date Duration Status GlipiZIDE 10 mg Orally twice a day [...]
--- OUTSIDE RECORDS SUMMARY | 2018-09-03 14:56 | XMS REPORT ---
Author Author GENEVIEVE JOSE F [facility] Address [address] [place] [address] Care Team Providers Care Hem Marker Name Role Phone GENEVIEVESANTOSHJOSE F Unavailable PROBLEMS Type Condition ICD9-CM Code VIE29-ZG Code Onset Dates Condition Status SNOMED Code Problem Psoriasis L40.9 Active 7228737 Problem Rheumatoid arthritis involving multiple sites with positive rheumatoid factor M05.79 Active 836011600 Problem Vision loss, left eye H54.62 Active 00614202 Problem Primary insomnia F51.01 Active 4321687 Problem Other elevated white blood cell (WBC) count D72.828 Active 743582322 Problem Essential hypertension I10 Active 96301880 Problem Hematochezia K92.1 Active 939050566 Problem Type 2 diabetes mellitus with hyperglycemia, without long-term current use of insulin E11.65 Active 90961537 Problem Tobacco use Z72.0 Active 421553407 Problem Renal cyst, right N28.1 Active 70902313 Problem Idiopathic pulmonary fibrosis J84.112 Active 287329490 Problem Chronic obstructive pulmonary disease, unspecified J44.9 Active 76076764 Problem Lactic acidosis E87.2 Active 39209839 Problem Hyperlipidemia E78.5 Active 22007100 ALLERGIES No Information ENCOUNTERS Encounter Location Date Diagnosis [facility] [id number] [address] November, [facility] [id number] [place] [address] 23514- 4321 November, Rheumatoid arthritis involving multiple sites with positive rheumatoid factor M05.79 [facility] [id number] [place] [address] 70174- 7268 November, Rheumatoid arthritis involving multiple sites with positive rheumatoid factor M05.79 [facility] [id number] [place] [address] 12859- 3883 November, Rheumatoid arthritis involving multiple sites with positive rheumatoid factor M05.79 [place] [facility] [address], [place] [address] Oct, Rheumatoid arthritis involving multiple sites with positive rheumatoid factor M05.79 [place] [address], [place] [address] 3[address] Oct, [facility] [id number] [place] [address] 15643- 7870 Oct, Rheumatoid arthritis involving multiple sites with positive rheumatoid factor M05.79 [facility] [id number] [place] [address] 42626- 1121 Oct, Rheumatoid arthritis involving multiple sites with positive rheumatoid factor M05.79 ; Type 2 diabetes mellitus with hyperglycemia, without long-term current use of insulin E11.65 ; Hyperlipidemia E78.5 and Other elevated white blood cell (WBC) count D72.828 [facility] [facility] [id number] [place] [address] 37457- 1261 Oct, Chronic obstructive pulmonary disease, unspecified J44.9 [facility] [id number] [place] [address] 36986- 3456 Oct, Rheumatoid arthritis involving multiple sites with positive rheumatoid factor M05.79 [facility] [id number] [place] [address] 74380- 4618 Oct, Type 2 diabetes mellitus with hyperglycemia, without long- term current use of insulin E11.65 [facility] [id number] [place] [address] 50328- 5371 Sep, [facility] [facility] [address], [place] [address] 4[address] Sep, Rheumatoid arthritis involving multiple sites with positive rheumatoid factor M05.79 ; Visit for TB skin test Z11.1 and Psoriasis L40.9 [facility] [id number] [place] [address] 77755- 1346 Sep, Type 2 diabetes mellitus with hyperglycemia, without long- term current use of insulin E11.65 ; Rheumatoid arthritis involving multiple sites with positive rheumatoid factor M05.79 ; Hyperlipidemia E78.5 ; Essential hypertension I10 ; Other elevated white blood cell (WBC) count D72.828 ; Primary insomnia F51.01 and Tobacco use Z72.0 [facility] [id number] [place] [address] 97318- 4175 Sep, [facility] [address] 06509- 2061 Aug, Type 2 diabetes mellitus with hyperglycemia, without long- term current use of insulin E11.65 and Hyperlipidemia E78.5 [facility] [id number] [place] [address] 16826- 4898 Jul, [facility] [id number] [place] [address] 33693- 7849 Jul, Rheumatoid arthritis involving multiple sites with positive rheumatoid factor M05.79 [facility] [id number] [place] [address] 40684- 8518 Jul, Rheumatoid arthritis involving multiple sites with positive rheumatoid factor M05.79 [facility] [id number] [place] [address] 08923- 2912 Jun, Essential hypertension I10 and Hyperlipidemia E78.5 [facility] [id number] [place] [address] 40806- 0641 Jun, Chronic obstructive pulmonary disease, unspecified J44.9 [facility] [id number] [place] [address] 28663- 6495 Jun, [facility] [id number] [place] [address] 15673- 4791 May, Type 2 diabetes mellitus without complication E11.9 ; Rheumatoid arthritis involving multiple sites with positive rheumatoid factor M05.79 ; Psoriasis L40.9 and Essential hypertension I10 [facility] [id number] [place] [address] [id number] May, Dental examination Z01.20 and Dental caries K02.9 [facility] [address], [place] [address] Apr, Type 2 diabetes mellitus without complication E11.9 ; Type 2 diabetes mellitus with hyperglycemia, without long-term current use of insulin E11.65 ; Idiopathic pulmonary fibrosis J84.112 ; Essential hypertension I10 ; Tobacco use Z72.0 ; Rheumatoid arthritis involving multiple sites with positive rheumatoid factor M05.79 ; Hyperlipidemia E78.5 and Chronic obstructive pulmonary disease, unspecified J44.9 [facility] [id number] [place] [address] 42696- 3245 Apr, Dental examination Z01.20 [facility] [id number] [place] [address] 57121- 6017 Apr, [facility] [id number] [place] [address] 55105- 1160 Apr, [facility] [id number] [place] [address] 25873- 8538 Apr, [facility] [address], [place] [address] 5573 Apr, [facility] [id number] [place] [address] 96196- 3620 Apr, [facility] [address], [place] [address] 8799 Apr, Type 2 diabetes mellitus without complication E11.9 and Essential hypertension I10 [facility] [address], [place] [address]- 2577 Mar, [facility] [address], [place] [address]- 0993 Mar, Rheumatoid arthritis involving multiple sites with positive rheumatoid factor M05.79 [facility] [address], [place] [address] 1920 Mar, Type 2 diabetes mellitus without complication E11.9 ; Essential hypertension I10 and Hyperlipidemia E78.5 [facility] [id number] [place] [address] 41507- 0172 Mar, Rheumatoid arthritis involving multiple sites with positive rheumatoid factor M05.79 [facility] [address], [place] [address]- 8608 Mar, [facility] [id number] [place] [address] 12587- 0422 Mar, Hyperlipidemia E78.5 ; Essential hypertension I10 and Type 2 diabetes mellitus without complication E11.9 [facility] [id number] [place] [address] 07736- 9282 Feb, Rheumatoid arthritis involving multiple sites with positive rheumatoid factor M05.79 and Essential hypertension I10 [facility] [id number] [place] [address] 62174- 0486 Jan, Rheumatoid arthritis involving multiple sites with positive rheumatoid factor M05.79 [facility] [id number] [place] [address] 15430- 1547 Dec, Rheumatoid arthritis involving multiple sites with positive rheumatoid factor M05.79 [facility] [address], [place] [address]- 6334 Dec, [facility] [id number] [place] [address] 92331- 5562 November, Rheumatoid arthritis involving multiple sites with positive rheumatoid factor M05.79 and Psoriasis L40.9 [facility] [address], [place] [address]- 8834 November, Hyperlipidemia E78.5 [facility] [address], [place] [address] 1400 November, Type 2 diabetes mellitus without complication E11.9 [facility] [address], [place] [address]- 6136 November, [facility] [address], [place] [address]- 3951 November, Rheumatoid arthritis involving multiple sites with positive rheumatoid factor M05.79 ; Hyperlipidemia E78.5 ; Type 2 diabetes mellitus without complication E11.9 ; Idiopathic pulmonary fibrosis J84.112 and Tobacco use Z72.0 [facility] [id number] [place] [address] 44790- 8769 Oct, Essential hypertension I10 and Rheumatoid arthritis involving multiple sites with positive rheumatoid factor M05.79 [facility] [facility] [id number] [place] [address] 16149- 9335 Sep, Rheumatoid arthritis involving multiple sites with positive rheumatoid factor M05.79 and Psoriasis L40.9 [facility] [id number] [place] [address] 80579- 5727 Jul, Rheumatoid arthritis involving multiple sites with positive rheumatoid factor M05.79 [address] [address] 91304- 5911 Jul, Idiopathic pulmonary fibrosis J84.112 [address] [id number] Jul, [place] [id number] [place] [address] 09216- 0178 Jul, Idiopathic pulmonary fibrosis J84.112 [facility] [id number] [place] [address] 41505- 2511 Jul, Idiopathic pulmonary fibrosis J84.112 and Hypoxia R09.02 [id number] [place] [address] 50762- 9164 Jul, Cough R05 and Idiopathic pulmonary fibrosis J84.112 [place] [id number] [place] [address] 58855- 9143 Apr, Type 2 diabetes mellitus without complication E11.9 ; Rheumatoid arthritis involving multiple sites with positive rheumatoid factor M05.79 ; Psoriasis L40.9 ; Hyperlipidemia E78.5 ; Idiopathic pulmonary fibrosis J84.112 and Essential hypertension I10 [facility] [id number] [place] [address] 14510- 8980 Feb, [place] [address] 88283- 5006 Feb, [facility] [address], [place] [address]- 6726 Dec, Right ankle gives way M25.371 [facility] [id number] [place] [address] 00661- 6121 November, [facility] [id number] [place] [address] 04758- 9092 November, Wrist pain, left M25.532 [facility] [id number] [place] [address] 99161- 9807 Sep, Psoriasis L40.9 [facility] [id number] [place] [address] 43509- 7912 Sep, COPD exacerbation J44.1 [facility] [id number] [place] [address] 23162- 6818 Aug, [facility] [id number] [place] [address] 90688- 1743 Aug, Rheumatoid arthritis involving multiple sites with positive rheumatoid factor M05.79 and Hyperlipidemia E78.5 [address] [id number] [place] [address] 53983- 5523 Aug, [facility] [id number] [place] [address] 26764- 0823 Aug, Psoriasis L40.9 ; Rheumatoid arthritis involving multiple sites with positive rheumatoid factor M05.79 and Essential hypertension I10 [facility] [address], [place] [address]- 5448 Jul, [facility] [id number] [place] [address] 56454- 3620 Jul, [facility] [id number] [place] [address] 50307- 9642 Jul, Type 2 diabetes mellitus without complication E11.9 ; Hyperlipidemia E78.5 and Rheumatoid arthritis involving multiple sites with positive rheumatoid factor M05.79 [address] [place] [id number], [place] [address]- 0466 Jun, [facility] [id number] [place] [address] 44078- 6770 Apr, [facility] [id number], [place] [address]- 6476 Mar, [facility] [id number] [place] [address] 19767- 3206 Mar, [facility] [id number] [place] [address] 63931- 5657 Mar, Rheumatoid arthritis 714.0 ; Other psoriasis 696.1 and Cellulitis, axillary fold 682.3 [facility] [id number] [place] [address] 56768- 7301 Jan, [facility] [id number] [place] [address] 37024- 4570 Dec, [facility] [id number] [place] [address] 08181- 3636 Dec, Other and unspecified hyperlipidemia 272.4 ; Other psoriasis 696.1 and Diabetes mellitus without mention of complication, type II or unspecified type, not stated as uncontrolled 250.00 [facility] [address], [place] [address]- 0996 Dec, [facility] [address], [place] [address]- 7736 November, [facility] [address], [place] [address]- 5055 Oct, [facility] [id number] [place] [address] 12152- 0003 Oct, [facility] [address], [place] [address]- 9221 Sep, [facility] [id number] [place] [address] 85584- 2684 Sep, [facility] [place] [facility] [address] [id number] [place] [address]- 2541 20 Sep, 2014 [facility] [place] [facility] [address] [id number] [place] [address]- 4843 20 Sep, 2014 [facility] [place] [facility] [address] [id number] [place] [address]- 0979 13 Sep, 2014 [facility] [place] [facility] [address] [id number] [place] [address]- 8557 13 Sep, 2014 [facility] [place] [facility] [address] [id number] [place] [address]- 4288 13 Sep, 2014 [facility] [place] [facility] [address] [id number] [place] [address]- 8962 13 Sep, 2014 [facility] [place] [facility] [address] [id number] [place] [address]- 4571 Sep, [facility] [place] [facility] [address] [id number] [place] [address]- 8719 Sep, [facility] [place] [facility] [address] [id number] [place] [address]- 4716 Jul, [facility] [place] [facility] [address] [id number] [place] [address]- 1554 Jul, [facility] [place] [facility] [address] [id number] [place] [address]- 0936 16 Jul, 2014 [facility] [place] [facility] [address] [id number] [place] [address]- 3980 16 Jul, 2014 [facility] [place] [facility] [address] [id number] [place] [address]- 5163 15 Jul, 2014 [facility] [place] [facility] [address] [id number] [place] [address]- 1226 15 Jul, 2014 [facility] [place] [facility] [address] [id number] [place] [address]- 1527 13 Jul, 2014 [facility] [place] [facility] [address] [id number] [place] [address]- 2406 Jul, [facility] [place] [facility] [address] [id number] [place] 4543 Jun, [facility] [place] [facility] [address] [id number] [place] [address]- 5257 Jun, [facility] [place] [facility] [address] [id number] [place] [address]- 7879 Jun, [facility] [place] [facility] [address] [id number] [place] [address]- 6889 Jun, [facility] [place] [facility] [address] [id number] [place] 6010 Jun, [facility] [place] [facility] [address] [id number] [place] [address]- 6943 Jun, [facility] [place] [facility] [address] [id number] [place] [address]- 8075 Apr, [facility] [place] [facility] [address] [id number] [place] [address]- 0581 Apr, [facility] [place] [facility] [address] [id number] [place] [address]- 5377 Mar, [facility] [place] [facility] [address] [id number] [place] [address]- 0754 Mar, [facility] [place] [facility] [address] [id number] [place] [address]- 9959 Feb, [facility] [place] [facility] [address] [id number] [place] [address]- 8260 Feb, [facility] [place] [facility] [address] [id number] [place] [address]- 0104 Jan, [facility] [place] [facility] [address] [id number] [place] [address]- 3756 Jan, [facility] [place] [facility] [address] [id number] [place] [address]- 3487 Jan, [facility] [place] [facility] [address] [id number] [place] [address]- 0526 Jan, [facility] [address] [id number] [place] [address]- 1231 Jan, [facility] [place] [facility] [address] [id number] [place] [address]- 8546 Dec, [facility] [place] [facility] [address] [id number] [place] [address]- 6671 Dec, [facility] [place] [facility] [address] [id number] [place] [address]- 1635 Dec, [facility] [place] [facility] [address] [id number] [place] [address]- 6755 Dec, [facility] [place] [facility] [address] [id number] [place] [address]- 9859 November, [facility] [place] [facility] [address] [id number] [place] [address]- 7097 November, [facility] [place] [facility] [address] [id number] [place] [address]- 7930 Oct, [facility] [place] [facility] [address] [id number] [place] [address]- 4965 Oct, [facility] [place] [facility] [address] [id number] [place] [address]- 0924 Sep, [facility] [place] [facility] [address] [id number] [place] [address]- 0627 Sep, [facility] [place] [facility] [address] [id number] [place] [address]- 5143 Sep, [facility] [place] [facility] [address] [id number] [place] [address]- 1883 Sep, [facility] [place] [facility] [address] [id number] [place] [address]- 8125 Aug, [facility] [place] [facility] [address] [id number] [place] [address]- 1917 Aug, [facility] [place] [facility] [address] [id number] [place] [address]- 4334 Aug, [facility] [place] [facility] [address] [id number] [place] [address]- 0706 Aug, [facility] [place] [facility] [address] [id number] [place] [address]- 0269 Aug, [facility] [place] [facility] [address] [id number] [place] [address]- 2348 Aug, [facility] [place] [facility] [address] [id number] [place] [address]- 7306 Jul, [facility] [place] [facility] [address] [id number] [place] [address]- 6424 Jul, [facility] [place] [facility] [address] [id number] [place] [address]- 4654 Jul, [facility] [place] [facility] [address] [id number] [place] [address]- 3106 Jul, [facility] [place] [facility] [address] [id number] [place] [address]- 2682 Jul, [facility] [place] [facility] [address] [id number] [place] [address]- 1049 Jul, [facility] [place] [facility] [address] [id number] [place] [address]- 6988 Jul, [facility] [place] [facility] [address] [id number] [place] [address]- 5368 Jul, [facility] [place] [facility] [address] [id number] [place] [address]- 8225 Jun, [facility] [place] [facility] [address] [id number] [place] [address]- 9999 Jun, [facility] [place] [facility] [address] [id number] [place] [address]- 9457 Jun, [facility] [place] [facility] [address] [id number] [place] [address]- 5616 Jun, [facility] [place] [facility] [address] [id number] [place] [address]- 2348 Jun, [facility] [place] [facility] [address] [id number] [place] [address]- 4968 Jun, [facility] [place] [facility] [address] [id number] [place] [address]- 8491 May, [facility] [place] [facility] [address] [id number] [place] [address]- 5298 May, [facility] [place] [facility] [address] [id number] [place] [address]- 2202 May, [facility] [place] [facility] [address] [id number] [place] [address]- 3794 May, [facility] [place] [facility] [address] [id number] [place] [address]- 1554 Apr, [facility] [place] [facility] [address] [id number] [place] [address]- 1266 Apr, [facility] [place] [facility] [address] [id number] [place] [address] Apr, [facility] [place] [facility] [address] [facility] [id number] [place] [address] Apr, [facility] [place] [facility] [address] [id number] [place] [address] 25 Mar, 2013 [facility] [place] [facility] [address] [id number] [place] [address] 23 Sep, 2012 [facility] [place] [facility] [address] [id number] [place] [address] 16 Sep2012 [facility] [place] [facility] [address] [id number] [place] [address] 12 Sep, 2012 [facility] [place] [facility] [address] [id number] [place] [address] Mar, [facility] [place] [facility] [address] [id number] [place] [address] Mar, [facility] [address] [id number] [place] [address] Feb, [facility] [address] [id number] [place] [address] Feb, [facility] [address] [id number] [place] [address] Feb, [facility] [address] [id number] [place] [address] Feb, [facility] [address] [id number] [place] [address] Jan, [facility] [address] [id number] [place] [address] Dec, [facility] [address] [id number] [place] [address] November, [facility] [address] [id number] [place] [address] Sep, [facility] [address] [id number] [place] [address] Aug, [facility] [address] [id number] [place] [address] Aug, [facility] [address] [id number] [place] [address] Jul, [facility] [place] [facility] [address] [id number] [place] [address] Jul, [facility] [place] [facility] [address] [id number] [place] [address] Jun, [facility] [place] [facility] [address] [id number] [place] [address] Jun, [facility] [address] [address] [id number] [place] [address] Jun, [facility] [place] [facility] [address] [id number] [place] [address] Jun, [facility] [place] [facility] [address] [id number] [place] [address] Jun, [facility] [place] [facility] [address] [facility] [id number] [place] [address] Jun, [facility] [place] [facility] [address] [id number] [place] [address] 30 May, 2012 [facility] [place] [facility] [address] [id number] [place] [address] 29 May, 2012 [facility] [place] [facility] [address] [id number] [place] [address] 28 May, 2012 [facility] [place] [facility] [address] [id number] [place] [address] 28 May, 2012 [facility] [place] [facility] [address] [id number] [place] [address] 27 May, 2012 [facility] [place] [facility] [address] [facility] [id number] [place] [address] 27 May, 2012 [facility] [place] [facility] [address] [facility] [id number] [place] [address] 15 May, 2012 [facility] [place] [facility] [address] [facility] [id number] [place] [address] 133[address] 15 May, 2012 [facility] [place] [facility] [address] [id number] [place] [address] 14 May, 2012 [facility] [place] [facility] [address] [id number] [place] [address] 26[address] 14 May, 2012 [facility] [place] [facility] [address] [facility] [id number] [place] [address] 12 May, 2012 [facility] [place] [facility] [address] [facility] [id number] [place] [address] 12 May, 2012 [facility] [place] [facility] [address] [id number] [place] [address] 10 May, 2012 [facility] [place] [facility] [address] [id number] [place] [address] 10 May, 2012 [facility] [place] [facility] [address] [id number] [place] [address] May, [facility] [place] [facility] [address] [id number] [place] [address] Apr, [facility] [place] [facility] [address] [id number] [place] [address] Apr, [facility] [place] [facility] [address] [id number] [place] [address] Apr, [facility] [place] [facility] [address] [id number] [place] [address] Apr, [facility] [place] [facility] [address] [id number] [place] [address] Apr, [facility] [place] [facility] [address] [id number] [place] [address] Apr, [facility] [place] [facility] [address] [id number] [place] [address] 16[address] Apr, [facility] [place] [facility] [address] [facility] [id number] [place] [address] Apr, [facility] [place] [facility] [address] [id number] [place] [address] Apr, [facility] [place] [facility] [address] [id number] [place] [address] Apr, [facility] [place] [facility] [address] [id number] [place] [address] 8566 25 Mar, 2012 [facility] [place] [facility] [address] [id number] [place] [address] 3926 24 Mar, 2012 [facility] [place] [facility] [address] [id number] [place] [address] Mar, [facility] [address] [id number] [address] Mar, [facility] [id number], [place] [address] Feb, [facility] [id number], [place] [address] Feb, [facility] [id number], [place] [address] Feb, [facility] [id number], [place] [address] Feb, [facility] [id number], [place] [address] Feb, [facility] [id number], [place] [address] November, [facility] [id number], [place] [address] Aug, [facility] [id number], [place] [address] May, [facility] [id number], [place] [address] May, [facility] [id number], [place] [address] Apr, [facility] [address] [id number], [place] [address] Mar, IMMUNIZATIONS No Known Immunizations SOCIAL HISTORY Never Assessed REASON FOR VISIT Medication refill request PLAN OF CARE VITAL SIGNS MEDICATIONS Medication Instructions Dosage Frequency Start Date End Date Duration Status Lipitor 40 mg Orally Once a day 1 tablet 24h 90 days Active GlipiZIDE 10 mg Orally [...]
--- OUTSIDE RECORDS SUMMARY | 2018-09-03 14:56 | XMS REPORT ---
Author Author RILEY SCHRADER Organization [facility] Address [address] [place] [address] Care Team Providers Care Fire Investigation Manager Name Role Phone RILEY SCHRADER Unavailable PROBLEMS Type Condition ICD9-CM Code XOI29-ML Code Onset Dates Condition Status SNOMED Code Problem Psoriasis L40.9 Active 9318965 Problem Rheumatoid arthritis involving multiple sites with positive rheumatoid factor M05.79 Active 640086735 Problem Vision loss, left eye H54.62 Active 73113829 Problem Primary insomnia F51.01 Active 2656215 Problem Other elevated white blood cell (WBC) count D72.828 Active 464194749 Problem Essential hypertension I10 Active 56618438 Problem Hematochezia K92.1 Active 769566701 Problem Type 2 diabetes mellitus with hyperglycemia, without long-term current use of insulin E11.65 Active 76195276 Problem Tobacco use Z72.0 Active 589441313 Problem Renal cyst, right N28.1 Active 27174953 Problem Idiopathic pulmonary fibrosis J84.112 Active 300665542 Problem Chronic obstructive pulmonary disease, unspecified J44.9 Active 88198593 Problem Lactic acidosis E87.2 Active 26528001 Problem Hyperlipidemia E78.5 Active 59083407 ALLERGIES Substance Reaction Event Type Date Status Naprosyn Unknown Drug Allergy Sep, Active Celebrex Unknown Drug Allergy Sep, Active ENCOUNTERS Encounter Location Date Diagnosis [facility] [address] [facility] [id number], [place] [address] Jan, [facility] [address] [facility] [id number], [place] [address] November, [facility] [id number], [place] [address] November, Rheumatoid arthritis involving multiple sites with positive rheumatoid factor M05.79 [facility] [address] [id number], [place] [address] 5830 November, Rheumatoid arthritis involving multiple sites with positive rheumatoid factor M05.79 [address] [address], [place] [address] November, Rheumatoid arthritis involving multiple sites with positive rheumatoid factor M05.79 [place] [id number] [place] [address] 26213- 2018 Oct, Rheumatoid arthritis involving multiple sites with positive rheumatoid factor M05.79 [place] [id number] [place] [address] 20176- 1202 Oct, [place] [id number] [place] [address] 20233- 2729 Oct, Rheumatoid arthritis involving multiple sites with positive rheumatoid factor M05.79 [place] [id number] [place] [address] 15793- 5026 Oct, Rheumatoid arthritis involving multiple sites with positive rheumatoid factor M05.79 ; Type 2 diabetes mellitus with hyperglycemia, without long-term current use of insulin E11.65 ; Hyperlipidemia E78.5 and Other elevated white blood cell (WBC) count D72.828 [place] [address] [place] [address] 25220- 9468 Oct, Chronic obstructive pulmonary disease, unspecified J44.9 [place] [address], [place] [address] 6197 Oct, Rheumatoid arthritis involving multiple sites with positive rheumatoid factor M05.79 [place] [address], [place] [address] 7253 Oct, Type 2 diabetes mellitus with hyperglycemia, without long- term current use of insulin E11.65 [place] [address] [place] [address] 42619- 0066 Sep, [place] [address] [place] [address] 35739- 8051 Sep, Visit for TB skin test Z11.1 ; Rheumatoid arthritis involving multiple sites with positive rheumatoid factor M05.79 and Psoriasis L40.9 [place] [address] [place] [address] 18288- 8467 Sep, Type 2 diabetes mellitus with hyperglycemia, without long- term current use of insulin E11.65 ; Rheumatoid arthritis involving multiple sites with positive rheumatoid factor M05.79 ; Hyperlipidemia E78.5 ; Essential hypertension I10 ; Other elevated white blood cell (WBC) count D72.828 ; Primary insomnia F51.01 and Tobacco use Z72.0 [place] [id number] [place] [address] 99940- 2494 Sep, [place] [id number] [place] [address] 96761- 8605 Aug, Type 2 diabetes mellitus with hyperglycemia, without long- term current use of insulin E11.65 and Hyperlipidemia E78.5 [place] [id number] [place] [address] 32558- 8130 Jul, [place] [id number] [place] [address] 38700- 7137 Jul, Rheumatoid arthritis involving multiple sites with positive rheumatoid factor M05.79 [place] [id number] [place] [address] 02170- 2913 Jul, Rheumatoid arthritis involving multiple sites with positive rheumatoid factor M05.79 [place] [id number] [place] [address] 30277- 5838 Jun, Essential hypertension I10 and Hyperlipidemia E78.5 [place] [id number] [place] [address] 13641- 5259 Jun, Chronic obstructive pulmonary disease, unspecified J44.9 [place] [id number] [place] [address] 48953- 6231 Jun, [place] [id number] [place] [address] 21838- 2583 May, Type 2 diabetes mellitus without complication E11.9 ; Rheumatoid arthritis involving multiple sites with positive rheumatoid factor M05.79 ; Psoriasis L40.9 and Essential hypertension I10 [facility] [id number] [address] May, Dental examination Z01.20 and Dental caries K02.9 [facility] [address] [place] [address] 65178- 9999 Apr, Type 2 diabetes mellitus without complication E11.9 ; Type 2 diabetes mellitus with hyperglycemia, without long-term current use of insulin E11.65 ; Idiopathic pulmonary fibrosis J84.112 ; Essential hypertension I10 ; Tobacco use Z72.0 ; Rheumatoid arthritis involving multiple sites with positive rheumatoid factor M05.79 ; Hyperlipidemia E78.5 and Chronic obstructive pulmonary disease, unspecified J44.9 [facility] [id number] [place] [address] 01642- 7650 Apr, Dental examination Z01.20 [facility] [id number] [place] [address] 64698- 6662 Apr, [facility] [id number] [place] [address] 15510- 5165 Apr, [facility] [id number] [place] [address] 99196- 9479 Apr, [facility] [id number] [place] [address] 66132- 0283 Apr, [facility] [address] [place] [address] 47137- 2158 Apr, [facility] [id number] [place] [address] 22238- 5689 Apr, Type 2 diabetes mellitus without complication E11.9 and Essential hypertension I10 [facility] [id number] [place] [address] 82061- 3133 Mar, [facility] [id number] [place] [address] 25235- 7987 Mar, Rheumatoid arthritis involving multiple sites with positive rheumatoid factor M05.79 [facility] [id number] [place] [address] 00397- 8664 Mar, Type 2 diabetes mellitus without complication E11.9 ; Essential hypertension I10 and Hyperlipidemia E78.5 [facility] [address] [place] [address] 21740- 9204 Mar, Rheumatoid arthritis involving multiple sites with positive rheumatoid factor M05.79 [facility] [address] [place] [address] 47223- 0742 Mar, [facility] [id number] [place] [address] 75795- 0847 Mar, Hyperlipidemia E78.5 ; Essential hypertension I10 and Type 2 diabetes mellitus without complication E11.9 [facility] [address] [place] [address] 37807- 6819 Feb, Rheumatoid arthritis involving multiple sites with positive rheumatoid factor M05.79 and Essential hypertension I10 [place] [id number] [place] [address] 74278- 9656 Jan, Rheumatoid arthritis involving multiple sites with positive rheumatoid factor M05.79 [facility] [address] [place] [address] 15748- 1199 Dec, Rheumatoid arthritis involving multiple sites with positive rheumatoid factor M05.79 [facility] [address] [place] [address] 41391- 8001 Dec, [facility] [address] [place] [address] 39975- 5639 November, Rheumatoid arthritis involving multiple sites with positive rheumatoid factor M05.79 and Psoriasis L40.9 [facility] [address] [place] [address] 36557- 3651 November, Hyperlipidemia E78.5 [facility] [address] [place] [address] 21189- 0724 November, Type 2 diabetes mellitus without complication E11.9 [facility] [address], [place] [address]- 8074 November, [place] [address], [place] [address]- 0704 November, Rheumatoid arthritis involving multiple sites with positive rheumatoid factor M05.79 ; Hyperlipidemia E78.5 ; Type 2 diabetes mellitus without complication E11.9 ; Idiopathic pulmonary fibrosis J84.112 and Tobacco use Z72.0 [id number] [place] [address] 88353- 5340 Oct, Essential hypertension I10 and Rheumatoid arthritis involving multiple sites with positive rheumatoid factor M05.79 [place] [id number] [place] [address] 91634- 4028 Sep, Rheumatoid arthritis involving multiple sites with positive rheumatoid factor M05.79 and Psoriasis L40.9 [place] [id number] [place] [address] 76555- 5043 Jul, Rheumatoid arthritis involving multiple sites with positive rheumatoid factor M05.[address] 77913- 4848 Jul, Idiopathic pulmonary fibrosis J84.112 [place] [id number] [place] [address] [id number] Jul, [place] [id number] [place] [address] 43659- 8991 Jul, Idiopathic pulmonary fibrosis J84.112 [id number] [place] [address] 58610- 9532 Jul, Idiopathic pulmonary fibrosis J84.112 and Hypoxia R09.02 [id number] [place] [address] 54288- 4948 Jul, Cough R05 and Idiopathic pulmonary fibrosis J84.112 [address] [id number] [place] [address] 18589- 0119 Apr, Type 2 diabetes mellitus without complication E11.9 ; Rheumatoid arthritis involving multiple sites with positive rheumatoid factor M05.79 ; Psoriasis L40.9 ; Hyperlipidemia E78.5 ; Idiopathic pulmonary fibrosis J84.112 and Essential hypertension I10 [address] [id number], [place] [address]- 9226 Feb, [facility] [id number] [place] [address] 87711- 3234 Feb, [facility] [address], [place] [address]- 3547 Dec, Right ankle gives way M25.371 [facility] [id number] [place] [address] 72272- 5663 November, [facility] [id number] [place] [address] 41051- 5921 November, Wrist pain, left M25.532 [facility] [id number] [place] [address] 80762- 6058 Sep, Psoriasis L40.9 [facility] [id number] [place] [address] 11626- 2297 Sep, COPD exacerbation J44.1 [facility] [id number] [place] [address] 20902- 6112 Aug, [facility] [id number] [place] [address] 05661- 3249 Aug, Rheumatoid arthritis involving multiple sites with positive rheumatoid factor M05.79 and Hyperlipidemia E78.5 [facility] [id number] [place] [address] 13754- 5054 Aug, [facility] [id number] [place] [address] 83876- 9843 Aug, Psoriasis L40.9 ; Rheumatoid arthritis involving multiple sites with positive rheumatoid factor M05.79 and Essential hypertension I10 [facility] [id number] [place] [address] 05079- 7677 Jul, [facility] [address] [place] [address] 01931- 9186 Jul, [facility] [id number] [place] [address] 90980- 5822 Jul, Type 2 diabetes mellitus without complication E11.9 ; Hyperlipidemia E78.5 and Rheumatoid arthritis involving multiple sites with positive rheumatoid factor M05.79 [facility] [id number] [place] [address] 63575- 4856 Jun, [facility] [id number] [place] [address] 26074- 1408 Apr, [facility] [id number] [place] [address] 50888- 7702 Mar, [facility] [id number] [place] [address] 40797- 5739 Mar, [facility] [id number] [place] [address] 50336- 4961 Mar, Rheumatoid arthritis 714.0 ; Other psoriasis 696.1 and Cellulitis, axillary fold 682.3 [facility] [id number] [place] [address] 85353- 7236 Jan, [facility] [id number] [place] [address] 62858- 7605 Dec, [facility] [id number] [place] [address] 62959- 2296 Dec, Other and unspecified hyperlipidemia 272.4 ; Other psoriasis 696.1 and Diabetes mellitus without mention of complication, type II or unspecified type, not stated as uncontrolled 250.00 [facility] [id number] [place] [address] 72627- 6908 Dec, [facility] [id number] [place] [address] 00413- 1550 November, [facility] [id number] [place] [address] 72664- 6740 Oct, [facility] [id number] [place] [address] 23534- 8197 Oct, [facility] [id number] [place] [address]- 6346 24 Sep, 2014 [facility] [address] [id number] [place] [address]- 8991 24 Sep, 2014 [facility] [place] [facility] [address] [id number] [place] [address]- 3956 20 Sep, 2014 [facility] [place] [facility] [address] [id number] [place] [address]- 4182 20 Sep, 2014 [facility] [place] [facility] [address] [id number] [place] [address]- 9910 13 Sep, 2014 [facility] [place] [facility] [address] [id number] [place] [address]- 6102 Sep, [facility] [place] [facility] [address] [id number] [place] [address]- 3566 Sep, [facility] [address] [id number] [place] [address]- 8220 Sep, [facility] [place] [facility] [address] [id number] [place] [address]- 5233 Sep, [facility] [place] [facility] [address] [id number] [place] [address]- 1316 Sep, [facility] [place] [facility] [address] [id number] [place] [address]- 8244 Jul, [facility] [place] [facility] [address] [id number] [place] [address]- 2485 Jul, [facility] [place] [facility] [address] [id number] [place] [address]- 1350 Jul, [facility] [place] [facility] [address] [id number] [place] [address]- 1859 Jul, [facility] [place] [facility] [address] [id number] [place] [address]- 7683 15 Jul, 2014 [facility] [place] [facility] [address] [id number] [place] [address]- 9793 15 Jul, 2014 [facility] [place] [facility] [address] [id number] [place] [address]- 4739 13 Jul, 2014 [facility] [place] [facility] [address] [id number] [place] [address]- 5677 Jul, [facility] [place] [facility] [address] [id number] [place] [address]- 5735 Jun, [facility] [place] [facility] [address] [id number] [place] [address]- 6297 Jun, [facility] [place] [facility] [address] [id number] [place] [address]- 8549 Jun, [facility] [place] [facility] [address] [id number] [place] [address]- 0778 Jun, [facility] [place] [facility] [address] [id number] [place] 7891 Jun, [facility] [place] [facility] [address] [id number] [place] [address]- 7249 Jun, [facility] [place] [facility] [address] [id number] [place] [address]- 8251 Apr, [facility] [place] [facility] [address] [id number] [place] [address]- 6667 Apr, [facility] [place] [facility] [address] [id number] [place] [address]- 9292 Mar, [facility] [place] [facility] [address] [id number], [place] [address]- 4202 Mar, [facility] [place] [facility] [address] [id number] [place] [address]- 8554 Feb, [facility] [place] [facility] [address] [id number] [place] [address]- 0970 Feb, [facility] [place] [facility] [address] [id number] [place] [address]- 5924 Jan, [facility] [place] [facility] [address] [id number] [place] [address]- 2118 Jan, [facility] [place] [facility] [address] [id number] [place] [address]- 3739 Jan, [facility] [place] [facility] [address] [id number] [place] 7921 Jan, [facility] [place] [facility] [address] [id number] [place] [address]- 2357 Jan, [facility] [place] [facility] [address] [id number] [place] [address]- 4446 Dec, [facility] [place] [facility] [address] [id number] [place] [address]- 7491 Dec, [facility] [place] [facility] [address] [id number] [place] [address]- 5388 Dec, [facility] [place] [facility] [address] [id number] [place] [address]- 6843 Dec, [facility] [place] [facility] [address] [id number] [place] [address]- 3693 November, [facility] [place] [facility] [address] [id number] [place] [address]- 5024 November, [facility] [place] [facility] [address] [id number] [place] [address]- 0632 Oct, [facility] [place] [facility] [address] [id number] [place] [address]- 0049 Oct, [facility] [place] [facility] [address] [id number] [place] [address]- 6465 Sep, [facility] [place] [facility] [address] [id number] [place] [address]- 1030 Sep, [facility] [place] [facility] [address] [id number] [place] 7167 Sep, [facility] [place] [facility] [address] [id number] [place] 1671 Sep, [facility] [place] [facility] [address] [id number] [place] [address]- 9086 Aug, [facility] [place] [facility] [address] [id number] [place] [address]- 3250 Aug, [facility] [place] [facility] [address] [id number] [place] [address]- 6046 Aug, [facility] [place] [facility] [address] [id number] [place] [address]- 5858 Aug, [facility] [place] [facility] [address] [id number] [place] [address]- 2591 Aug, [facility] [place] [facility] [address] [id number] [place] [address]- 8999 Aug, [facility] [place] [facility] [address] [id number] [place] [address]- 8768 Jul, [facility] [place] [facility] [address] [id number] [place] [address]- 4698 Jul, [facility] [place] [facility] [address] [id number] [place] [address]- 8092 Jul, [facility] [place] [facility] [address] [id number] [place] [address]- 4403 Jul, [facility] [place] [facility] [address] [id number] [place] [address]- 2751 Jul, [facility] [place] [facility] [address] [id number] [place] [address]- 4695 Jul, [facility] [place] [facility] [address] [id number] [place] [address]- 8400 Jul, [facility] [place] [facility] [address] [id number] [place] [address]- 4646 Jul, [facility] [place] [facility] [address] [id number] [place] [address]- 1865 Jun, [facility] [place] [facility] [address] [id number] [place] [address]- 9360 Jun, [facility] [place] [facility] [address] [id number] [place] 5631 Jun, [facility] [place] [facility] [address] [id number] [place] [address]- 4779 Jun, [facility] [place] [facility] [address] [id number] [place] [address]- 5031 Jun, [facility] [place] [facility] [address] [id number] [place] [address]- 3153 Jun, [facility] [place] [facility] [address] [id number] [place] [address]- 4047 May, [facility] [place] [facility] [address] [id number] [place] [address]- 8458 May, [facility] [place] [facility] [address] [id number] [place] [address]- 0253 May, [facility] [place] [facility] [address] [id number] [place] [address]- 8100 May, [facility] [place] [facility] [address] [id number] [place] [address]- 8882 Apr, [facility] [place] [facility] [address] [id number] [place] [address]- 2714 Apr, [facility] [place] [facility] [address] [id number], [place] [address]- 3628 08 Apr, 2013 [facility] [place] [facility] [address] [id number], [place] [address]- 5121 07 Apr, 2013 [facility] [place] [facility] [address] [id number] [place] [address]- 8273 25 Mar, 2013 [facility] [place] [facility] [address] [id number] [place] 1727 23 Sep2012 [facility] [place] [facility] [address] [id number] [place] [address]- 3352 16 Sep2012 [facility] [place] [facility] [address] [id number] [place] [address]- 7246 Mar, [facility] [address] [id number] [place] [address]- 6525 Mar, [facility] [address] [id number] [place] [address] 2546 Mar, [facility] [address] [id number] [place] [address]- 8745 Feb, [facility] [address] [id number] [place] [address]- 5327 Feb, [facility] [address] [id number] [place] [address]- 1110 Feb, [facility] [address] [id number] [place] [address]- 3010 Feb, [facility] [address] [id number] [place] [address] Jan, [facility] [address] [id number] [place] [address] Dec, [facility] [address] [id number] [place] [address] November, [facility] [address] [id number] [place] [address] Sep, [facility] [address] [id number] [place] [address] Aug, [facility] [address] [id number] [place] [address] Aug, [facility] [place] [facility] [address] [id number] [place] [address] Jul, [facility] [address] [id number] [place] [address] Jul, [facility] [address] [id number] [place] [address] Jun, [facility] [place] [facility] [address] [id number] [place] [address] Jun, [facility] [place] [facility] [address] [id number] [place] [address] Jun, [facility] [place] [facility] [address] [id number] [place] [address] Jun, [facility] [place] [facility] [address] [id number] [place] [address] Jun, [facility] [place] [facility] [address] [id number] [place] [address] Jun, [facility] [place] [facility] [address] [id number] [place] [address] 30 May, 2012 [facility] [place] [facility] [address] [id number] [place] [address] 29 May, 2012 [facility] [place] [facility] [address] [id number] [place] [address] 28 May, 2012 [facility] [place] [facility] [address] [id number] [place] [address] 28 May, 2012 [facility] [place] [facility] [address] [id number] [place] [address] May, [facility] [facility] [address] [id number] [place] [address] May, [facility] [place] [facility] [address] [id number], [place] [address] 15 May, 2012 [facility] [place] [facility] [address] [id number] [place] [address] 15 May, 2012 [facility] [place] [facility] [address] [id number] [place] [address] 14 May, 2012 [facility] [place] [facility] [address] [id number] [place] [address] 14 May, 2012 [facility] [place] [facility] [address] [id number] [place] [address] May, [facility] [place] [facility] [address] [id number] [place] [address] May, [facility] [place] [facility] [address] [id number] [place] [address] May, [facility] [place] [facility] [address] [id number] [place] [address] May, [facility] [place] [facility] [address] [id number] [place] [address] May, [facility] [place] [facility] [address] [id number] [place] [address] Apr, [facility] [place] [facility] [address] [id number] [place] [address] Apr, [facility] [place] [facility] [address] [id number] [place] [address] Apr, [facility] [place] [facility] [address] [id number] [place] [address] Apr, [facility] [place] [facility] [address] [id number] [place] [address] Apr, [facility] [place] [facility] [address] [facility] [id number] [place] [address] Apr, [facility] [place] [facility] [address] [id number] [place] [address] Apr, [facility] [place] [facility] [address] [id number], [place] [address] Apr, [facility] [place] [facility] [address] [id number] [place] [address] Apr, [facility] [place] [facility] [address] [facility] [id number] [place] [address] Apr, [facility] [place] [facility] [address] [facility] [id number], [place] [address] Mar, [facility] [facility] [id number] [address] 24 Mar, 2012 [facility] [id number] [address] [address] 14 Mar, 2012 [facility] [address] [id number] [address] Mar, [facility] [id number] [address] Feb, [facility] [address] [facility] [id number] [place] [address] Feb, [facility] [id number] [place] [address], [place] [address] Feb, [facility] [id number], [place] [address] Feb, [facility] [id number], [place] [address] Feb, [facility] [id number], [place] [address] November, [facility] [id number], [place] [address] Aug, [facility] [address], [place] [address] May, [facility] [address], [place] [address] May, [facility] [address] [id number] [address] [address] Apr, [facility] [id number] Mar, IMMUNIZATIONS No Known Immunizations SOCIAL HISTORY Never Assessed REASON FOR VISIT Arthritis-Ezequiel YOON PLAN OF CARE Activity Details Follow Up 6 Weeks. 48-72 hours Reason:RA/psoriasis VITAL SIGNS Height 67 in 2017-10-18 Weight 218.4 lbs 2017-10-18 Temperature 98.2 degrees Fahrenheit 2017-10-18 Heart Rate 89 bpm 2017-10-18 Respiratory Rate 22 2017-10-18 Oximetry on room air:96 % 2017-10-18 BMI 34.20 kg/m2 2017-10-18 Blood pressure systolic 126 mmHg 2017-10-18 Blood pressure diastolic 74 mmHg 2017-10-18 MEDICATIONS Medication Instructions Dosage Frequency Start Date End Date Duration Status Humira 40 MG/0.8ML Subcutaneous every other week 0.8 ml Sep, November, 12 Weeks Active Lipitor 40 mg Orally Once a day 1 tablet 24h Active Albuterol Sulfate (2.5 MG/3ML) 0.083% Inhalation every 6 hrs 3 ml as needed 6h Mar, Active Glucocard Expression Test - In Vitro Once a day as directed 24h Apr, Active GlipiZIDE 10 mg Orally twice a day 1 table 12h Active Ventolin HFA 108 (90 Base) MCG/ACT Inhalation every 4 hrs 2-4 puffs as needed 4h Active Lisinopril 20 mg Orally Once a day 1 tablet 24h Aug, 90 days Active Folic Acid 1 MG Orally Once a day 1 tablet 24h November, 90 days Active Hydroxychloroquine Sulfate 200 mg Orally Once a day 2 tablet with food or milk 24h Active Hydrocodone-Acetaminophen 5-325 MG Orally every 6 hrs 1 tablet as needed 6h Jan, Not-Taking Advair Diskus 250-50 MCG/DOSE Inhalation Twice a day, approximately 12 hrs apart 1 puff Active Piroxicam 20 mg Orally Once a day 1 capsule with food 24h Active Chantix Starting Month Jose 0.5 MG X 11 & 1 MG X 42 Orally as directed as directed Sep, Oct, 30 days Active Glucocard Expression Monitor w/Device as directed Apr, Active Calcipotriene 0.005 % Externally Twice a day 1 application to affected area 12h Sep, Not-Taking Clobetasol Propionate 0.05 % Externally Twice a day as needed for psoriasis 1 application to affected area Dec, Active Methotrexate 2.5 MG Orally once weekly 6 tabs November, Active RESULTS No Results PROCEDURES Procedure Date Ordered Result Body Site TB INTRADERMAL 2017-10-18 Negative TB INTRADERMAL TEST October 18, 2017 [facility], 2017 INSTRUCTIONS MEDICATIONS ADMINISTERED No Known Medications [...]
--- OUTSIDE RECORDS SUMMARY | 2018-09-03 14:57 | XMS REPORT ---
Author Author GENEVIEVEJO[facility] Address [address] [place] [address] Care Team Providers Care Shuttle Final Inspector Name Role Phone JOSE F VALLEJO Unavailable PROBLEMS Type Condition ICD9-CM Code [id number] Code Onset Dates Condition Status SNOMED Code Problem Psoriasis L40.9 Active 5608240 Problem Rheumatoid arthritis involving multiple sites with positive rheumatoid factor M05.79 Active 478922925 Problem Vision loss, left eye H54.62 Active 73992916 Problem Primary insomnia F51.01 Active 5770409 Problem Other elevated white blood cell (WBC) count D72.828 Active 680655633 Problem Essential hypertension I10 Active 58527061 Problem Hematochezia K92.1 Active 311173400 Problem Type 2 diabetes mellitus with hyperglycemia, without long-term current use of insulin E11.65 Active 10456226 Problem Tobacco use Z72.0 Active 047302147 Problem Renal cyst, right N28.1 Active 37717488 Problem Idiopathic pulmonary fibrosis J84.112 Active 066948811 Problem Chronic obstructive pulmonary disease, unspecified J44.9 Active 48495617 Problem Lactic acidosis E87.2 Active 82182804 Problem Hyperlipidemia E78.5 Active 54374499 ALLERGIES Substance Reaction Event Type Date Status Naprosyn Unknown Drug Allergy Sep, Active Celebrex Unknown Drug Allergy Sep, Active ENCOUNTERS Encounter Location Date Diagnosis [facility], [place] [address] [facility] [id number] [address] Jan, [facility], [place] [address] [address] November, [facility], [place] [address] [id number] [address] 7[address] November, Rheumatoid arthritis involving multiple sites with positive rheumatoid factor M05.79 [facility], [place] [address] [id number] [address] 6657 November, Rheumatoid arthritis involving multiple sites with positive rheumatoid factor M05.79 [place] [address] [address] 9[address] November, Rheumatoid arthritis involving multiple sites with positive rheumatoid factor M05.79 [place] [address] [address] 9099 Oct, Rheumatoid arthritis involving multiple sites with positive rheumatoid factor M05.79 [place] [address] [id number] [address]65 Oct, [place] [id number] [place] [address] 89510- 2983 Oct, Rheumatoid arthritis involving multiple sites with positive rheumatoid factor M05.79 [place] [address] [address] Oct, Rheumatoid arthritis involving multiple sites with positive rheumatoid factor M05.79 ; Type 2 diabetes mellitus with hyperglycemia, without long-term current use of insulin E11.65 ; Hyperlipidemia E78.5 and Other elevated white blood cell (WBC) count D72.828 [place] [address] [address]99 Oct, Chronic obstructive pulmonary disease, unspecified J44.9 [place] [address] [address] 70[address] Oct, Rheumatoid arthritis involving multiple sites with positive rheumatoid factor M05.79 [place] [address] [address] Oct, Type 2 diabetes mellitus with hyperglycemia, without long- term current use of insulin E11.65 [place] [address] [address] 8[address] Sep, [place] [address] [address] 0150 Sep, Visit for TB skin test Z11.1 ; Rheumatoid arthritis involving multiple sites with positive rheumatoid factor M05.79 and Psoriasis L40.9 [place] [address] [place] [address] 54436- 3514 Sep, Type 2 diabetes mellitus with hyperglycemia, without long- term current use of insulin E11.65 ; Rheumatoid arthritis involving multiple sites with positive rheumatoid factor M05.79 ; Hyperlipidemia E78.5 ; Essential hypertension I10 ; Other elevated white blood cell (WBC) count D72.828 ; Primary insomnia F51.01 and Tobacco use Z72.0 [place] [id number] [place] [address] 15801- 5708 Sep, [place] [id number] [place] [address] 36959- 9513 Aug, Type 2 diabetes mellitus with hyperglycemia, without long- term current use of insulin E11.65 and Hyperlipidemia E78.5 [place] [id number] [place] [address] 49935- 0359 Jul, [place] [id number] [place] [address] 92620- 8770 Jul, Rheumatoid arthritis involving multiple sites with positive rheumatoid factor M05.79 [place] [id number] [place] [address] 16976- 2869 Jul, Rheumatoid arthritis involving multiple sites with positive rheumatoid factor M05.79 [place] [id number] [place] [address] 08704- 4314 Jun, Essential hypertension I10 and Hyperlipidemia E78.5 [place] [id number] [place] [address] 59167- 9178 Jun, Chronic obstructive pulmonary disease, unspecified J44.9 [place] [id number] [place] [address] 27091- 2230 Jun, [place] [address] [place] [address] 57217- 5392 May, Type 2 diabetes mellitus without complication E11.9 ; Rheumatoid arthritis involving multiple sites with positive rheumatoid factor M05.79 ; Psoriasis L40.9 and Essential hypertension I10 [facility] [address] [id number] [address] May, Dental examination Z01.20 and Dental caries K02.9 [facility], [place] [address] [place] [address] 86492- 8528 Apr, Type 2 diabetes mellitus without complication E11.9 ; Type 2 diabetes mellitus with hyperglycemia, without long-term current use of insulin E11.65 ; Idiopathic pulmonary fibrosis J84.112 ; Essential hypertension I10 ; Tobacco use Z72.0 ; Rheumatoid arthritis involving multiple sites with positive rheumatoid factor M05.79 ; Hyperlipidemia E78.5 and Chronic obstructive pulmonary disease, unspecified J44.9 [facility], [place] [id number] [place] [address] 22761- 4163 Apr, Dental examination Z01.20 [facility], [place] [address] [place] [address] 01450- 2083 Apr, [facility], [place] [id number] [place] [address] 66079- 9155 Apr, [facility], [place] [id number] [place] [address] 85767- 2078 Apr, [facility], [place] [id number] [place] [address] 15957- 6443 Apr, [facility], [place] [address] [place] [address] 92694- 0048 Apr, [facility], [place] [id number] [place] [address] 37575- 1209 Apr, Type 2 diabetes mellitus without complication E11.9 and Essential hypertension I10 [facility], [place] [id number] [place] [address] 18275- 6464 Mar, [facility], [place] [id number] [place] [address] 45183- 5361 Mar, Rheumatoid arthritis involving multiple sites with positive rheumatoid factor M05.79 [facility], [place] [address] [place] [address]- 5426 29 Mar, 2017 Type 2 diabetes mellitus without complication E11.9 ; Essential hypertension I10 and Hyperlipidemia E78.5 [facility], [place] [address] [place] [address] 90901- 8240 Mar, Rheumatoid arthritis involving multiple sites with positive rheumatoid factor M05.79 [facility], [place] [id number] [place] [address] 52478- 7004 Mar, [facility], [place] [id number] [place] [address] 71030- 6366 Mar, Hyperlipidemia E78.5 ; Essential hypertension I10 and Type 2 diabetes mellitus without complication E11.9 [place] [id number] [place] [address] 81813- 3629 Feb, Rheumatoid arthritis involving multiple sites with positive rheumatoid factor M05.79 and Essential hypertension I10 [facility], [place] [id number] [place] [address] 05895- 6143 Jan, Rheumatoid arthritis involving multiple sites with positive rheumatoid factor M05.79 [facility], [place] [id number] [place] [address] 72136- 9920 Dec, Rheumatoid arthritis involving multiple sites with positive rheumatoid factor M05.79 [facility], [place] [address] [place] [address] 53044- 5227 Dec, [facility], [place] [address] [place] [address] 46175- 0998 November, Rheumatoid arthritis involving multiple sites with positive rheumatoid factor M05.79 and Psoriasis L40.9 [facility], [place] [address] [place] [address] 91956- 7855 November, Hyperlipidemia E78.5 [facility], [place] [address] [place] [address] 99246- 2663 November, Type 2 diabetes mellitus without complication E11.9 [facility], [place] [address] [place] [address] 25633- 8244 November, [facility], [place] [address] [address]- 2515 November, Rheumatoid arthritis involving multiple sites with positive rheumatoid factor M05.79 ; Hyperlipidemia E78.5 ; Type 2 diabetes mellitus without complication E11.9 ; Idiopathic pulmonary fibrosis J84.112 and Tobacco use Z72.0 [place] [address] [place] [address] 46866- 6320 Oct, Essential hypertension I10 and Rheumatoid arthritis involving multiple sites with positive rheumatoid factor M05.79 [place] [address] [place] [address] 40759- 8977 Sep, Rheumatoid arthritis involving multiple sites with positive rheumatoid factor M05.79 and Psoriasis L40.9 [place] [id number] [place] [address] 18343- 2601 Jul, Rheumatoid arthritis involving multiple sites with positive rheumatoid factor M05.79 [place] [id number] [place] [address] 66749- 1302 Jul, Idiopathic pulmonary fibrosis J84.112 [facility] [id number] [place] [address] [id number] Jul, [place] [address] [place] [address] 81873- 1589 Jul, Idiopathic pulmonary fibrosis J84.112 [place] [address] [place] [address] 03444- 1237 Jul, Idiopathic pulmonary fibrosis J84.112 and Hypoxia R09.02 [place] [address] [address]- 1648 Jul, Cough R05 and Idiopathic pulmonary fibrosis J84.112 [place] [address] [place] [address] 22251- 7824 Apr, Type 2 diabetes mellitus without complication E11.9 ; Rheumatoid arthritis involving multiple sites with positive rheumatoid factor M05.79 ; Psoriasis L40.9 ; Hyperlipidemia E78.5 ; Idiopathic pulmonary fibrosis J84.112 and Essential hypertension I10 [place] [address] [address]- 6270 Feb, [facility], [place] [id number] [place] [address] 80310- 7414 Feb, [facility], [place] [address] [address]- 7107 Dec, Right ankle gives way M25.371 [facility], [place] [id number] [place] [address] 55315- 9835 November, [facility], [place] [id number] [place] [address] 48238- 4621 November, Wrist pain, left M25.532 [facility], [place] [id number] [place] [address] 96893- 2908 Sep, Psoriasis L40.9 [facility], [place] [id number] [place] [address] 94582- 6426 Sep, COPD exacerbation J44.1 [facility], [place] [id number] [place] [address] 56849- 4911 Aug, [facility], [place] [id number] [place] [address] 98957- 4604 Aug, Rheumatoid arthritis involving multiple sites with positive rheumatoid factor M05.79 and Hyperlipidemia E78.5 [facility], [place] [address] [address]- 3313 Aug, [facility], [place] [address] [address]- 3793 Aug, Psoriasis L40.9 ; Rheumatoid arthritis involving multiple sites with positive rheumatoid factor M05.79 and Essential hypertension I10 [facility], [place] [id number] [place] [address] 86498- 8870 Jul, [facility], [place] [address] [address]- 7825 Jul, [facility], [place] [address] [id number] [address]- 0847 Jul, Type 2 diabetes mellitus without complication E11.9 ; Hyperlipidemia E78.5 and Rheumatoid arthritis involving multiple sites with positive rheumatoid factor M05.79 [facility], [place] [id number] [place] [address] 86600- 2459 Jun, [facility], [place] [id number] [place] [address] 78431- 3025 Apr, [facility], [place] [id number] [place] [address] 53016- 7501 Mar, [facility], [place] [id number] [place] [address] 18226- 0470 Mar, [facility], [place] [id number] [place] [address] 83839- 7215 Mar, Rheumatoid arthritis 714.0 ; Other psoriasis 696.1 and Cellulitis, axillary fold 682.3 [facility], [place] [id number] [place] [address] 03150- 8382 Jan, [facility], [place] [id number] [place] [address] 15248- 0740 Dec, [facility], [place] [id number] [place] [address] 70213- 2992 Dec, Other and unspecified hyperlipidemia 272.4 ; Other psoriasis 696.1 and Diabetes mellitus without mention of complication, type II or unspecified type, not stated as uncontrolled 250.00 [facility], [place] [id number] [place] [address] 06228- 1662 Dec, [facility], [place] [id number] [place] [address] 33806- 0530 November, [facility], [place] [id number] [place] [address] 79686- 6805 Oct, [facility], [place] [id number] [place] [address] 51429- 6343 Oct, [facility], [place] [id number] [place] [address]- 0246 24 Sep, 2014 [facility] [address] [id number] [place] [address]- 7313 24 Sep, 2014 [facility] [place] [facility] [address] [id number] [place] [address]- 6126 20 Sep, 2014 [facility] [place] [facility] [address] [id number] [place] [address]- 8126 20 Sep, 2014 [facility] [place] [facility] [address] [id number] [place] [address]- 6352 13 Sep, 2014 [facility] [place] [facility] [address] [id number] [place] [address]- 8752 13 Sep, 2014 [facility] [place] [facility] [address] [id number] [place] [address]- 5179 Sep, [facility] [place] [facility] [address] [id number] [place] [address]- 5117 Sep, [facility] [address] [id number] [place] [address]- 7313 Sep, [facility] [place] [facility] [address] [id number] [place] [address]- 5116 Sep, [facility] [place] [facility] [address] [id number] [place] [address]- 5036 Jul, [facility] [place] [facility] [address] [id number] [place] [address]- 1661 Jul, [facility] [place] [facility] [address] [id number] [place] [address]- 1459 Jul, [facility] [place] [facility] [address] [id number] [place] [address]- 5365 Jul, [facility] [place] [facility] [address] [id number] [place] [address]- 3046 15 Jul, 2014 [facility] [place] [facility] [address] [id number] [place] [address]- 5191 Jul, [facility] [place] [facility] [address] [id number] [place] [address]- 6064 Jul, [facility] [place] [facility] [address] [id number] [place] [address]- 0556 Jul, [facility] [place] [facility] [address] [id number] [place] [address]- 8997 Jun, [facility] [place] [facility] [address] [id number] [place] [address]- 1176 Jun, [facility] [place] [facility] [address] [id number] [place] [address]- 0230 Jun, [facility] [place] [facility] [address] [id number] [place] [address]- 3583 Jun, [facility] [place] [facility] [address] [id number] [place] [address]- 8969 Jun, [facility] [place] [facility] [address] [id number] [place] [address]- 8285 Jun, [facility] [place] [facility] [address] [id number] [place] [address]- 6792 Apr, [facility] [place] [facility] [address] [id number] [place] [address]- 7253 Apr, [facility] [place] [facility] [address] [id number] [place] [address]- 1190 Mar, [facility] [place] [facility] [address] [id number] [place] [address]- 2695 Mar, [facility] [place] [facility] [address] [id number] [place] [address]- 0217 Feb, [facility] [place] [facility] [address] [id number] [place] [address]- 1056 Feb, [facility] [place] [facility] [address] [id number] [place] [address]- 4493 Jan, [facility] [place] [facility] [address] [id number] [place] [address]- 2549 Jan, [facility] [place] [facility] [address] [id number] [place] [address]- 8264 Jan, [facility] [place] [facility] [address] [id number] [place] [address]- 4975 Jan, [facility] [place] [facility] [address] [id number] [place] [address]- 3635 Jan, [facility] [place] [facility] [address] [id number] [place] [address]- 4596 Dec, [facility] [place] [facility] [address] [id number] [place] [address]- 9827 Dec, [facility] [place] [facility] [address] [id number] [place] [address]- 4823 Dec, [facility] [place] [facility] [address] [id number] [place] [address]- 4903 Dec, [facility] [place] [facility] [address] [id number] [place] [address]- 0584 November, [facility] [place] [facility] [address] [id number] [place] [address]- 2260 November, [facility] [place] [facility] [address] [id number] [place] [address]- 4112 Oct, [facility] [place] [facility] [address] [id number] [place] [address]- 6605 Oct, [facility] [place] [facility] [address] [id number] [place] [address]- 1942 Sep, [facility] [place] [facility] [address] [id number] [place] [address]- 9660 Sep, [facility] [place] [facility] [address] [id number] [place] 4212 Sep, [facility] [place] [facility] [address] [id number] [place] [address]- 2870 Sep, [facility] [place] [facility] [address] [id number] [place] [address]- 2004 Aug, [facility] [place] [facility] [address] [id number] [place] [address]- 1738 Aug, [facility] [place] [facility] [address] [id number] [place] [address]- 6031 Aug, [facility] [place] [facility] [address] [id number] [place] [address]- 1277 Aug, [facility] [place] [facility] [address] [id number] [place] [address]- 5881 Aug, [facility] [place] [facility] [address] [id number] [place] [address]- 9973 Aug, [facility] [place] [facility] [address] [id number] [place] [address]- 4773 Jul, [facility] [place] [facility] [address] [id number] [place] [address]- 5930 Jul, [facility] [place] [facility] [address] [id number] [place] [address]- 6672 Jul, [facility] [place] [facility] [address] [id number] [place] [address]- 4632 Jul, [facility] [place] [facility] [address] [facility] [id number] [address]- 6939 Jul, [facility] [place] [facility] [address] [id number] [address]- 7256 Jul, [facility] [place] [facility] [address] [id number] [place] [address]- 3507 Jul, [facility] [place] [facility] [address] [id number] [place] [address]- 4859 Jul, [facility] [place] [facility] [address] [id number] [address]- 0862 Jun, [facility] [place] [facility] [address] [id number] [address]- 8609 Jun, [facility] [address] [id number] [place] [address]- 7148 Jun, [facility] [place] [facility] [address] [id number] [place] 4418 Jun, [facility] [place] [facility] [address] [facility] [id number] [place] [address]- 9943 Jun, [facility] [place] [facility] [address] [id number] [place] [address]- 8653 Jun, [facility] [place] [facility] [address] [id number] [place] [address] May, [facility] [place] [facility] [address] [id number] [place] [address] May, [facility] [address] [facility] [id number] [place] [address] May, [facility] [place] [facility] [address] [facility] [id number] [place] [address] May, [facility] [place] [facility] [address] [facility] [id number] [place] [address] Apr, [facility] [place] [facility] [address] [facility] [id number] [place] [address] Apr, [facility] [place] [facility] [address] [facility] [id number] [address] 08 Apr, 2013 [facility] [place] [facility] [address] [facility] [id number] [place] [address] 07 Apr, 2013 [facility] [place] [facility] [address] [id number] [place] [address] 25 Mar, 2013 [facility] [place] [facility] [address] [id number] [place] [address] 23 Mar, 2013 [facility] [place] [facility] [address] [facility] [id number] [place] [address] 16 Mar, 2013 [facility] [place] [facility] [address] [id number] [place] [address] 12 Mar, 2013 [facility] [address] [id number] [place] [address] Mar, [facility] [place] [facility] [address] [id number] [place] [address] Mar, [facility] [place] [facility] [address] [id number] [place] [address] Feb, [facility] [place] [facility] [address] [id number] [place] [address] Feb, [facility] [place] [facility] [address] [id number] [place] [address] Feb, [facility] [place] [facility] [address] [id number] [place] [address] Feb, [facility] [place] [facility] [address] [id number] [place] [address] Jan, [facility] [address] [id number] [place] [address] Dec, [facility] [place] [facility] [address] [id number] [place] [address] November, [facility] [place] [facility] [address] [id number] [place] [address] Sep, [facility] [place] [facility] [address] [id number] [place] [address] Aug, [facility] [place] [facility] [address] [id number] [place] [address] Aug, [facility] [place] [facility] [address] [id number] [place] [address] Jul, [facility] [place] [facility] [address] [id number] [place] [address] Jul, [facility] [place] [facility] [address] [id number] [place] [address] Jun, [facility] [place] [facility] [address] [id number] [place] [address] Jun, [facility] [place] [facility] [address] [id number] [place] [address] Jun, [facility] [place] [facility] [address] [facility] [id number] [place] [address] Jun, [facility] [place] [facility] [address] [id number] [place] [address] Jun, [facility] [place] [facility] [address] [id number] [place] [address] Jun, [facility] [place] [facility] [address] [id number] [place] [address] 30 May, 2012 [facility] [place] [facility] [address] [id number] [place] [address] 29 May, 2012 [facility] [place] [facility] [address] [id number] [address] 28 May, 2012 [facility] [place] [facility] [address] [id number] [place] [address] 28 May, 2012 [facility] [place] [facility] [address] [id number] [place] [address] 27 May, 2012 [facility] [place] [facility] [address] [id number] [address] 27 May, 2012 [facility] [place] [facility] [address] [id number] [address] 15 May, 2012 [facility] [place] [facility] [address] [id number] [place] [address] 15 May, 2012 [facility] [place] [facility] [address] [id number] [address] 14 May, 2012 [facility] [place] [facility] [address] [facility] [id number] [address] 14 May, 2012 [facility] [place] [facility] [address] [id number] [place] [address] May, [facility] [place] [facility] [address] [id number] [place] [address] May, [facility] [place] [facility] [address] [id number] [place] [address] May, [facility] [place] [facility] [address] [id number] [place] [address] May, [facility] [place] [facility] [address] [id number] [place] [address] May, [facility] [place] [facility] [address] [id number] [place] [address] Apr, [facility] [place] [facility] [address] [id number] [place] [address] Apr, [facility] [place] [facility] [address] [id number] [place] [address] Apr, [facility] [place] [facility] [address] [id number] [place] [address] Apr, [facility] [place] [facility] [address] [id number] [place] [address] Apr, [facility] [place] [facility] [address] [facility] [id number] [place] [address] Apr, [facility] [place] [facility] [address] [id number] [place] [address] Apr, [facility] [place] [facility] [address] [id number] [place] [address] Apr, [facility] [place] [facility] [address] [id number] [place] [address] Apr, [facility] [place] [facility] [address] [facility] [id number] [place] [address] Apr, [facility] [place] [facility] [address] [id number] [place] [address] Mar, [facility] [place] [address] [facility] [id number] [address] 24 Mar, 2012 [facility] [place] [id number] [address] Mar, [facility] [place] [id number] [address] Mar, [facility] [place] [id number] [address] Feb, [facility] [place] [address] [id number] [address] Feb, [facility] [place] [id number] [address] Feb, [facility] [place] [id number] [address] Feb, [facility] [place] [id number] [place] [address] Feb, [facility] [place] [id number] [address] November, [facility] [place] [id number] [address] Aug, [facility] [place] [id number] [address] May, [facility] [place] [id number] [address] May, [facility] [place] [address] [id number] [address] Apr, [facility] [place] [id number] [address] Mar, IMMUNIZATIONS No Known Immunizations SOCIAL HISTORY Never Assessed REASON FOR VISIT Blood pressure--tcuppettRN, -3 month diabetes visit, --Pain medication is not helping. Pt having difficulty sleeping at night PLAN OF CARE Activity Details Follow Up 3 Months Reason:DMII VITAL SIGNS Height 67 in 2017-10-04 Weight 218.0 lbs 2017-10-04 Temperature 97.9 degrees Fahrenheit 2017-10-04 Heart Rate 90 bpm 2017-10-04 Respiratory Rate 20 2017-10-04 BMI 34.14 kg/m2 2017-10-04 Blood pressure systolic 138 mmHg 2017-10-04 Blood pressure diastolic 78 mmHg 2017-10-04 MEDICATIONS Medication Instructions Dosage Frequency Start Date End Date Duration Status Glucocard Expression Monitor w/Device as directed Apr, Active GlipiZIDE 10 mg Orally twice a day 1 table 12h Active Piroxicam 20 mg Orally Once a day 1 capsule with food 24h Active Glucocard Expression Test - In Vitro Once a day as directed 24h Apr, Active Lisinopril 20 mg Orally Once a day 1 tablet 24h 10 Aug, 2015 90 days Active Calcipotriene 0.005 % Externally Twice a day 1 application to affected area 12h Sep, Not-Taking Hydroxychloroquine Sulfate 200 mg Orally Once a day 2 tablet with food or milk 24h Active Advair Diskus 250-50 MCG/DOSE Inhalation Twice a day, approximately 12 hrs apart 1 puff Active Albuterol Sulfate (2.5 MG/3ML) 0.083% Inhalation every 6 hrs 3 ml as needed 6h Mar, Active Ventolin HFA 108 (90 Base) MCG/ACT Inhalation every 4 hrs 2-4 puffs as needed 4h Not-Taking Hydrocodone-Acetaminophen 5-325 MG Orally every 6 hrs 1 tablet as needed 6h Jan, Active Clobetasol Propionate 0.05 % Externally Twice a day as needed for psoriasis 1 application to affected area Dec, Active Methotrexate 2.5 MG Orally once weekly 6 tabs November, Active Lipitor 40 mg Orally Once a day 1 tablet 24h Active Folic Acid 1 MG Orally Once a day 1 tablet 24h November, Active Chantix Starting Month Jose 0.5 MG X 11 & 1 MG X 42 Orally as directed as directed Sep, Oct, 30 days Active RESULTS Name Result Date Reference Range A1C (IN HOUSE) 2017-10-04 A1C IN HOUSE 7.5 4.3 - 5.6 % Previous A1c 8.8 Lot [id number] Exp date 05/2019 PROCEDURES Procedure Date Ordered Result Body Site GLYCATED HEMOGLOBIN TEST October 04, 2017 INSTRUCTIONS MEDICATIONS ADMINISTERED No Known Medications [...]
--- OUTSIDE RECORDS SUMMARY | 2018-09-03 14:58 | XMS REPORT ---
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 Installer Name Role Phone GENEVIEVESANTOSH LEMAHANY Unavailable PROBLEMS Type Condition ICD9-CM Code [id number] Code Onset Dates Condition Status SNOMED Code Problem Psoriasis L40.9 Active 9447261 Problem Rheumatoid arthritis involving multiple sites with positive rheumatoid factor M05.79 Active 077005614 Problem Vision loss, left eye H54.62 Active 35984400 Problem Primary insomnia F51.01 Active 9606125 Problem Other elevated white blood cell (WBC) count D72.828 Active 561596917 Problem Essential hypertension I10 Active 14946701 Problem Hematochezia K92.1 Active 864125998 Problem Type 2 diabetes mellitus with hyperglycemia, without long-term current use of insulin E11.65 Active 78291248 Problem Tobacco use Z72.0 Active 585418045 Problem Renal cyst, right N28.1 Active 81103432 Problem Idiopathic pulmonary fibrosis J84.112 Active 257549314 Problem Chronic obstructive pulmonary disease, unspecified J44.9 Active 73885719 Problem Lactic acidosis E87.2 Active 09006917 Problem Hyperlipidemia E78.5 Active 75231016 ALLERGIES No Information ENCOUNTERS Encounter Location Date Diagnosis [facility] [id number], [place] [address] Dec, [facility] [id number] [address] November, [facility] [id number] [place] [address] 61658- 9992 November, Rheumatoid arthritis involving multiple sites with positive rheumatoid factor M05.79 [facility] [id number] [address] 7065 November, Rheumatoid arthritis involving multiple sites with positive rheumatoid factor M05.79 [place] [address], [place] [address] 50[address] November, Rheumatoid arthritis involving multiple sites with positive rheumatoid factor M05.79 [place] [id number] [place] [address] 57990- 1056 Oct, Rheumatoid arthritis involving multiple sites with positive rheumatoid factor M05.79 [place] [id number] [place] [address] 13168- 4763 Oct, [place] [id number] [place] [address] 87838- 2038 Oct, Rheumatoid arthritis involving multiple sites with positive rheumatoid factor M05.79 [place] [id number] [place] [address] 12641- 1982 Oct, Rheumatoid arthritis involving multiple sites with positive rheumatoid factor M05.79 ; Type 2 diabetes mellitus with hyperglycemia, without long-term current use of insulin E11.65 ; Hyperlipidemia E78.5 and Other elevated white blood cell (WBC) count D72.828 [place] [id number] [place] [address] 80483- 0551 Oct, Chronic obstructive pulmonary disease, unspecified J44.9 [place] [id number] [place] [address] 40321- 3611 Oct, Rheumatoid arthritis involving multiple sites with positive rheumatoid factor M05.79 [place] [id number] [place] [address] 46110- 4971 Oct, Type 2 diabetes mellitus with hyperglycemia, without long- term current use of insulin E11.65 [place] [address], [place] [address]- 7402 Sep, [place] [id number] [place] [address] 17643- 8666 Sep, Rheumatoid arthritis involving multiple sites with positive rheumatoid factor M05.79 ; Visit for TB skin test Z11.1 and Psoriasis L40.9 [place] [id number] [place] [address] 50561- 3388 Sep, Type 2 diabetes mellitus with hyperglycemia, without long- term current use of insulin E11.65 ; Rheumatoid arthritis involving multiple sites with positive rheumatoid factor M05.79 ; Hyperlipidemia E78.5 ; Essential hypertension I10 ; Other elevated white blood cell (WBC) count D72.828 ; Primary insomnia F51.01 and Tobacco use Z72.0 [place] [id number] [place] [address] 42849- 8924 Sep, [place] [id number] [place] [address] 55740- 2194 Aug, Type 2 diabetes mellitus with hyperglycemia, without long- term current use of insulin E11.65 and Hyperlipidemia E78.5 [place] [id number] [place] [address] 93330- 3144 Jul, [place] [address] 01473- 8588 Jul, Rheumatoid arthritis involving multiple sites with positive rheumatoid factor M05.79 [place] [address] 05992- 5726 Jul, Rheumatoid arthritis involving multiple sites with positive rheumatoid factor M05.79 [place] [id number] [place] [address] 47458- 6117 Jun, Essential hypertension I10 and Hyperlipidemia E78.5 [place] [id number] [place] [address] 98105- 1002 Jun, Chronic obstructive pulmonary disease, unspecified J44.9 [facility] [id number] [place] [address] 09302- 9836 Jun, [place] [id number] [place] [address] 85485- 0406 May, Type 2 diabetes mellitus without complication E11.9 ; Rheumatoid arthritis involving multiple sites with positive rheumatoid factor M05.79 ; Psoriasis L40.9 and Essential hypertension I[address] [facility] [id number] [place] [address] [id number] May, Dental examination Z01.20 and Dental caries K02.9 [facility] [address], [place] [address]- 0871 Apr, Type 2 diabetes mellitus without complication E11.9 ; Type 2 diabetes mellitus with hyperglycemia, without long-term current use of insulin E11.65 ; Idiopathic pulmonary fibrosis J84.112 ; Essential hypertension I10 ; Tobacco use Z72.0 ; Rheumatoid arthritis involving multiple sites with positive rheumatoid factor M05.79 ; Hyperlipidemia E78.5 and Chronic obstructive pulmonary disease, unspecified J44.9 [facility] [address], [place] [address]- 8539 Apr, Dental examination Z01.20 [facility] [address], [place] [address]- 0429 Apr, [facility] [id number] [place] [address] 72249- 3315 Apr, [facility] [id number] [place] [address] 89999- 0188 Apr, [facility] [id number] [place] [address] 40977- 7088 Apr, [facility] [address], [place] [address]- 2696 Apr, [facility] [address], [place] [address]- 2982 Apr, Type 2 diabetes mellitus without complication E11.9 and Essential hypertension I10 [facility] [address], [place] [address]- 3735 Mar, [facility] [id number], [place] [address]- 8834 Mar, Rheumatoid arthritis involving multiple sites with positive rheumatoid factor M05.79 [facility] [address], [place] [address]- 1067 Mar, Type 2 diabetes mellitus without complication E11.9 ; Essential hypertension I10 and Hyperlipidemia E78.5 [facility] [address], [place] [address]- 6492 Mar, Rheumatoid arthritis involving multiple sites with positive rheumatoid factor M05.79 [facility] [address], [place] [address]- 1766 Mar, [facility] [id number] [place] [address] 23446- 6659 Mar, Hyperlipidemia E78.5 ; Essential hypertension I10 and Type 2 diabetes mellitus without complication E11.9 [facility] [address] [place] [address] 30921- 0575 Feb, Rheumatoid arthritis involving multiple sites with positive rheumatoid factor M05.79 and Essential hypertension I10 [facility] [id number] [place] [address] 11106- 8750 Jan, Rheumatoid arthritis involving multiple sites with positive rheumatoid factor M05.79 [facility] [id number] [place] [address] 38221- 7799 Dec, Rheumatoid arthritis involving multiple sites with positive rheumatoid factor M05.79 [facility] [id number] [place] [address] 56691- 3519 Dec, [facility] [id number] [place] [address] 12232- 4925 November, Rheumatoid arthritis involving multiple sites with positive rheumatoid factor M05.79 and Psoriasis L40.9 [facility] [address], [place] [address]- 8680 November, Hyperlipidemia E78.5 [facility] [address] [place] [address] 00689- 9608 November, Type 2 diabetes mellitus without complication E11.9 [facility] [address], [place] [address]- 7506 November, [facility] [id number] [place] [address] 17492- 1839 November, Rheumatoid arthritis involving multiple sites with positive rheumatoid factor M05.79 ; Hyperlipidemia E78.5 ; Type 2 diabetes mellitus without complication E11.9 ; Idiopathic pulmonary fibrosis J84.112 and Tobacco use Z72.0 [place] [id number] [place] [address] 47805- 9973 Oct, Essential hypertension I10 and Rheumatoid arthritis involving multiple sites with positive rheumatoid factor M05.79 [place] [address] 34318- 5426 Sep, Rheumatoid arthritis involving multiple sites with positive rheumatoid factor M05.79 and Psoriasis L40.[address] 74074- 4894 Jul, Rheumatoid arthritis involving multiple sites with positive rheumatoid factor M05.79 [place] [address] 16716- 0965 Jul, Idiopathic pulmonary fibrosis J84.112 [address] [address] [id number] Jul, [place] [address] 69204- 3865 Jul, Idiopathic pulmonary fibrosis J84.112 [place] [address] 78362- 2161 Jul, Idiopathic pulmonary fibrosis J84.112 and Hypoxia R09.02 [id number] [place] [address] 29557- 5759 Jul, Cough R05 and Idiopathic pulmonary fibrosis J84.112 [place] [id number] [place] [address] 99979- 2869 Apr, Type 2 diabetes mellitus without complication E11.9 ; Rheumatoid arthritis involving multiple sites with positive rheumatoid factor M05.79 ; Psoriasis L40.9 ; Hyperlipidemia E78.5 ; Idiopathic pulmonary fibrosis J84.112 and Essential hypertension I10 [place] [address] 15470- 2180 Feb, [facility] [address], [place] [address]- 3193 Feb, [facility] [id number] [place] [address] 07778- 4937 Dec, Right ankle gives way M25.371 [facility] [address] [place] [address] 50148- 8744 November, [facility] [id number] [place] [address] 73422- 5476 November, Wrist pain, left M25.532 [facility] [id number] [place] [address] 40743- 3334 Sep, Psoriasis L40.9 [facility] [id number] [place] [address] 79154- 6237 Sep, COPD exacerbation J44.1 [facility] [id number] [place] [address] 83129- 6301 Aug, [facility] [address] [place] [address] 27657- 7225 Aug, Rheumatoid arthritis involving multiple sites with positive rheumatoid factor M05.79 and Hyperlipidemia E78.5 [facility] [address], [place] [address]- 9483 Aug, [facility] [address] [place] [address] 80966- 3055 Aug, Psoriasis L40.9 ; Rheumatoid arthritis involving multiple sites with positive rheumatoid factor M05.79 and Essential hypertension I10 [facility] [address] [place] [address] 68846- 7951 Jul, [facility] [address] [place] [address] 80023- 4868 Jul, [facility] [address], [place] [address]- 8221 Jul, Type 2 diabetes mellitus without complication E11.9 ; Hyperlipidemia E78.5 and Rheumatoid arthritis involving multiple sites with positive rheumatoid factor M05.79 [facility] [id number] [place] [address] 66110- 9508 Jun, [facility] [id number] [place] [address] 22378- 2872 Apr, [facility] [id number] [place] [address] 95018- 1687 Mar, [facility] [address] 47032- 1907 Mar, [facility] [address] 69357- 0296 Mar, Rheumatoid arthritis 714.0 ; Other psoriasis 696.1 and Cellulitis, axillary fold 682.3 [place] [id number] [place] [address] 22070- 0471 Jan, [facility] [id number] [place] [address] 67898- 5631 Dec, [facility] [id number] [place] [address] 29801- 1714 Dec, Other and unspecified hyperlipidemia 272.4 ; Other psoriasis 696.1 and Diabetes mellitus without mention of complication, type II or unspecified type, not stated as uncontrolled 250.00 [facility] [id number] [place] [address] 14375- 7296 Dec, [facility] [id number] [place] [address] 78602- 6400 November, [facility] [id number] [place] [address] 21027- 6481 Oct, [facility] [id number] [place] [address] 65416- 6123 Oct, [facility] [id number] [place] [address] 94236- 1378 Sep, [facility] [place] [facility] [address] [id number] [place] [address]- 0950 24 Sep, 2014 [facility] [place] [facility] [address] [id number] [place] [address]- 6909 20 Sep, 2014 [facility] [place] [facility] [address] [id number] [place] [address]- 3476 20 Sep, 2014 [facility] [place] [facility] [address] [id number] [place] [address]- 4923 13 Sep, 2014 [facility] [place] [facility] [address] [id number] [place] [address]- 3086 Sep, [facility] [place] [facility] [address] [id number] [place] [address]- 5924 Sep, [facility] [place] [facility] [address] [id number] [place] [address]- 3153 Sep, [facility] [place] [facility] [address] [id number] [place] [address]- 1446 Sep, [facility] [place] [facility] [address] [id number] [place] [address]- 5865 Sep, [facility] [place] [facility] [address] [id number] [place] [address]- 5256 Jul, [facility] [place] [facility] [address] [id number] [place] [address]- 9767 Jul, [facility] [place] [facility] [address] [id number] [place] [address]- 0402 Jul, [facility] [place] [facility] [address] [id number] [place] [address]- 2680 Jul, [facility] [place] [facility] [address] [id number] [place] [address]- 4237 15 Jul, 2014 [facility] [place] [facility] [address] [id number] [place] [address]- 1766 15 Jul, 2014 [facility] [place] [facility] [address] [id number] [place] [address]- 0136 Jul, [facility] [place] [facility] [address] [id number] [place] [address]- 5938 Jul, [facility] [place] [facility] [address] [id number] [place] [address]- 0893 Jun, [facility] [place] [facility] [address] [id number] [place] [address]- 0876 Jun, [facility] [place] [facility] [address] [id number] [place] [address]- 0012 Jun, [facility] [place] [facility] [address] [id number] [place] [address]- 7397 Jun, [facility] [place] [facility] [address] [id number] [place] [address]- 8479 Jun, [facility] [place] [facility] [address] [id number] [place] [address]- 1724 Jun, [facility] [place] [facility] [address] [id number] [place] [address]- 0931 Apr, [facility] [place] [facility] [address] [id number] [place] [address]- 0511 Apr, [facility] [place] [facility] [address] [id number] [place] [address]- 4607 Mar, [facility] [place] [facility] [address] [id number] [place] [address]- 1415 Mar, [facility] [place] [facility] [address] [id number] [place] [address]- 5333 Feb, [facility] [place] [facility] [address] [id number] [place] [address]- 4514 Feb, [facility] [place] [facility] [address] [id number] [place] [address]- 8662 Jan, [facility] [place] [facility] [address] [id number] [place] [address]- 2544 Jan, [facility] [place] [facility] [address] [id number] [place] [address]- 4204 Jan, [facility] [address] [id number] [place] [address]- 7501 Jan, [facility] [place] [facility] [address] [id number] [place] [address]- 4370 Jan, [facility] [place] [facility] [address] [id number] [place] [address]- 4258 Dec, [facility] [place] [facility] [address] [id number] [place] [address]- 4573 Dec, [facility] [place] [facility] [address] [id number] [place] [address]- 3367 Dec, [facility] [place] [facility] [address] [id number] [place] [address]- 5605 Dec, [facility] [place] [facility] [address] [id number] [place] [address]- 9496 November, [facility] [place] [facility] [address] [id number] [place] [address]- 1970 November, [facility] [place] [facility] [address] [id number] [place] [address]- 5952 Oct, [facility] [place] [facility] [address] [id number] [place] [address]- 9716 Oct, [facility] [place] [facility] [address] [id number] [place] [address]- 4033 Sep, [facility] [place] [facility] [address] [id number] [place] [address]- 4193 Sep, [facility] [place] [facility] [address] [id number] [place] [address]- 8017 Sep, [facility] [place] [facility] [address] [id number] [place] [address]- 2546 Sep, [facility] [place] [facility] [address] [id number] [place] [address]- 3985 Aug, [facility] [place] [facility] [address] [id number] [place] [address]- 4103 Aug, [facility] [place] [facility] [address] [id number] [place] [address]- 9436 Aug, [facility] [place] [facility] [address] [id number] [place] [address]- 4886 Aug, [facility] [place] [facility] [address] [id number] [place] [address]- 9906 Aug, [facility] [place] [facility] [address] [id number] [place] [address]- 4872 Aug, [facility] [place] [facility] [address] [id number] [place] [address]- 9823 Jul, [facility] [place] [facility] [address] [id number] [place] [address]- 7260 Jul, [facility] [place] [facility] [address] [id number] [place] [address]- 2504 Jul, [facility] [place] [facility] [address] [id number] [place] [address]- 1215 Jul, [facility] [place] [facility] [address] [id number] [place] [address]- 7341 Jul, [facility] [place] [facility] [address] [id number] [place] [address]- 0773 Jul, [facility] [place] [facility] [address] [id number] [address]- 7457 Jul, [facility] [place] [facility] [address] [id number] [place] [address]- 5289 Jul, [facility] [place] [facility] [address] [id number] [place] [address]- 8495 Jun, [facility] [place] [facility] [address] [id number] [place] [address]- 3406 Jun, [facility] [place] [facility] [address] [id number] [place] [address]- 3740 Jun, [facility] [address] [id number] [place] [address]- 4158 Jun, [facility] [place] [facility] [address] [id number] [place] [address]- 4797 Jun, [facility] [place] [facility] [address] [id number] [place] [address]- 4254 Jun, [facility] [place] [facility] [address] [id number] [place] [address]- 5668 May, [facility] [place] [facility] [address] [id number] [place] [address]- 3368 May, [facility] [place] [facility] [address] [id number] [place] [address]- 4579 May, [facility] [place] [facility] [address] [id number] [place] [address]- 0560 May, [facility] [place] [facility] [address] [id number] [place] [address]- 1619 Apr, [facility] [place] [facility] [address] [id number] [place] [address]- 4373 Apr, [facility] [place] [facility] [address] [id number] [place] [address]- 1927 08 Apr, 2013 [facility] [place] [facility] [address] [id number] [place] [address]- 1186 07 Apr, 2013 [facility] [place] [facility] [address] [id number] [place] [address]- 4904 25 Mar, 2013 [facility] [place] [facility] [address] [id number] [place] [address]- 7866 23 Mar, 2013 [facility] [place] [facility] [address] [id number] [place] [address]- 4441 16 Mar, 2013 [facility] [place] [facility] [address] [id number] [place] [address]- 6931 Mar, [facility] [place] [facility] [address] [id number] [place] [address]- 8153 Mar, [facility] [address] [id number] [place] [address]- 6660 Mar, [facility] [address] [id number] [place] [address] Feb, [facility] [place] [facility] [address] [id number] [place] [address] Feb, [facility] [address] [id number] [place] [address] Feb, [facility] [address] [id number] [place] [address] Feb, [facility] [address] [id number] [place] [address] Jan, [facility] [address] [id number] [place] [address] Dec, [facility] [address] [id number] [place] [address] November, [facility] [address] [id number] [place] [address] Sep, [facility] [address] [id number] [place] [address] Aug, [facility] [address] [id number], [place] [address] Aug, [facility] [place] [facility] [address] [id number] [place] [address] Jul, [facility] [place] [facility] [address] [id number] [place] [address] Jul, [facility] [place] [facility] [address] [id number] [place] [address] Jun, [facility] [place] [facility] [address] [id number], [place] [address] Jun, [facility] [place] [facility] [address] [id number] [place] [address] Jun, [facility] [place] [facility] [address] [id number] [place] [address] Jun, [facility] [place] [facility] [address] [facility] [id number] [place] [address] Jun, [facility] [place] [facility] [address] [id number] [place] [address] 06 Jun, 2012 [facility] [place] [facility] [address] [id number] [place] [address] 30 May, 2012 [facility] [place] [facility] [address] [id number] [place] [address] 29 May, 2012 [facility] [place] [facility] [address] [id number] [address] 28 May, 2012 [facility] [place] [facility] [address] [id number] [place] [address] 28 May, 2012 [facility] [place] [facility] [address] [facility] [id number] [place] [address] 27 May, 2012 [facility] [place] [facility] [address] [facility] [id number] [place] [address] 27 May, 2012 [facility] [place] [facility] [address] [facility] [id number] [place] [address] 15 May, 2012 [facility] [place] [facility] [address] [id number] [place] [address] 15 May, 2012 [facility] [place] [facility] [address] [id number] [place] [address] 14 May, 2012 [facility] [place] [facility] [address] [facility] [id number] [place] [address] 14 May, 2012 [facility] [place] [facility] [address] [facility] [id number] [place] [address] 12 May, 2012 [facility] [place] [facility] [address] [id number] [place] [address] May, [facility] [place] [facility] [address] [id number] [place] [address] May, [facility] [place] [facility] [address] [id number] [place] [address] May, [facility] [place] [facility] [address] [id number] [place] [address] May, [facility] [place] [facility] [address] [id number] [place] [address] Apr, [facility] [place] [facility] [address] [id number] [place] [address] Apr, [facility] [place] [facility] [address] [id number] [place] [address] Apr, [facility] [place] [facility] [address] [id number] [place] [address] Apr, [facility] [place] [facility] [address] [id number] [place] [address] Apr, [facility] [place] [facility] [address] [id number] [place] [address] Apr, [facility] [place] [facility] [address] [id number] [place] [address] Apr, [facility] [place] [facility] [address] [id number] [place] [address] Apr, [facility] [place] [facility] [address] [id number] [place] [address]69 Apr, [facility] [place] [facility] [address] [id number] [place] [address] Apr, [facility] [place] [facility] [address] [id number] [place] [address] Mar, [facility] [place] [facility] [address] [id number] [place] [address] Mar, [facility] [id number] [address] Mar, [facility] [id number] [place] [address] Mar, [facility] [id number] [address] Feb, [facility] [id number] [place] [address] Feb, [facility] [id number] [place] [address]- [address] Feb, [facility] [id number] [place] [address]- 9747 Feb, [facility] [id number] [place] [address]- 4827 Feb, [facility] [id number] [place] [address]- [address] November, [facility] [id number] [address] Aug, [facility] [id number] [address] May, [facility] [id number] [address] May, [facility] [id number] [address] Apr, [facility] [id number] [address] Mar, IMMUNIZATIONS No Known Immunizations SOCIAL HISTORY Never Assessed REASON FOR VISIT refill PLAN OF CARE VITAL SIGNS MEDICATIONS Medication [...]
--- OUTSIDE RECORDS SUMMARY | 2018-09-03 14:59 | XMS REPORT ---
Author Author GENEVIEVE JOSE F [facility] Address [address] [place] [address] Care Team Providers Care Community Relations Director Name Role Phone GENEVIEVESANTOSH LEMAHANY Unavailable PROBLEMS Type Condition ICD9-CM Code FDP18-ZS Code Onset Dates Condition Status SNOMED Code Problem Psoriasis L40.9 Active 9478928 Problem Rheumatoid arthritis involving multiple sites with positive rheumatoid factor M05.79 Active 025330389 Problem Vision loss, left eye H54.62 Active 18624214 Problem Primary insomnia F51.01 Active 3679434 Problem Other elevated white blood cell (WBC) count D72.828 Active 496530297 Problem Essential hypertension I10 Active 67015800 Problem Hematochezia K92.1 Active 530205561 Problem Type 2 diabetes mellitus with hyperglycemia, without long-term current use of insulin E11.65 Active 48558224 Problem Tobacco use Z72.0 Active 040486883 Problem Renal cyst, right N28.1 Active 91302614 Problem Idiopathic pulmonary fibrosis J84.112 Active 735062220 Problem Chronic obstructive pulmonary disease, unspecified J44.9 Active 78096737 Problem Lactic acidosis E87.2 Active 35838503 Problem Hyperlipidemia E78.5 Active 61378212 ALLERGIES No Information ENCOUNTERS Encounter Location Date Diagnosis [facility] [place] [id number] [address] Dec, [facility] [place] [id number] [address] November, [facility] [place] [id number] [place] [address] 12282- 2728 November, Rheumatoid arthritis involving multiple sites with positive rheumatoid factor M05.79 [facility] [place] [id number] [address] November, Rheumatoid arthritis involving multiple sites with positive rheumatoid factor M05.79 [place] [address] [address] November, Rheumatoid arthritis involving multiple sites with positive rheumatoid factor M05.79 [place] [id number] [place] [address] 64080- 2424 Oct, Rheumatoid arthritis involving multiple sites with positive rheumatoid factor M05.79 [place] [id number] [place] [address] 24149- 3505 Oct, [place] [id number] [place] [address] 15532- 0531 Oct, Rheumatoid arthritis involving multiple sites with positive rheumatoid factor M05.79 [place] [id number] [place] [address] 03852- 9238 Oct, Rheumatoid arthritis involving multiple sites with positive rheumatoid factor M05.79 ; Type 2 diabetes mellitus with hyperglycemia, without long-term current use of insulin E11.65 ; Hyperlipidemia E78.5 and Other elevated white blood cell (WBC) count D72.828 [place] [id number] [place] [address] 53471- 4586 Oct, Chronic obstructive pulmonary disease, unspecified J44.9 [place] [address] [place] [address] 04042- 8511 Oct, Rheumatoid arthritis involving multiple sites with positive rheumatoid factor M05.79 [place] [address] [place] [address] 28265- 7593 Oct, Type 2 diabetes mellitus with hyperglycemia, without long- term current use of insulin E11.65 [place] [address] [address] Sep, [place] [id number] [place] [address] 19347- 4407 Sep, Rheumatoid arthritis involving multiple sites with positive rheumatoid factor M05.79 ; Visit for TB skin test Z11.1 and Psoriasis L40.9 [place] [id number] [place] [address] 16542- 9417 Sep, Type 2 diabetes mellitus with hyperglycemia, without long- term current use of insulin E11.65 ; Rheumatoid arthritis involving multiple sites with positive rheumatoid factor M05.79 ; Hyperlipidemia E78.5 ; Essential hypertension I10 ; Other elevated white blood cell (WBC) count D72.828 ; Primary insomnia F51.01 and Tobacco use Z72.0 [place] [id number] [place] [address] 55576- 7158 Sep, [place] [id number] [place] [address] 13964- 5804 Aug, Type 2 diabetes mellitus with hyperglycemia, without long- term current use of insulin E11.65 and Hyperlipidemia E78.5 [place] [id number] [place] [address] 34412- 6464 Jul, [place] [address] 86576- 0105 Jul, Rheumatoid arthritis involving multiple sites with positive rheumatoid factor M05.79 [place] [address] 65347- 8655 Jul, Rheumatoid arthritis involving multiple sites with positive rheumatoid factor M05.79 [place] [id number] [place] [address] 91394- 4477 Jun, Essential hypertension I10 and Hyperlipidemia E78.5 [place] [id number] [place] [address] 27139- 2896 Jun, Chronic obstructive pulmonary disease, unspecified J44.9 [facility] [place] [id number] [place] [address] 00241- 9607 Jun, [place] [id number] [place] [address] 56838- 7746 May, Type 2 diabetes mellitus without complication E11.9 ; Rheumatoid arthritis involving multiple sites with positive rheumatoid factor M05.79 ; Psoriasis L40.9 and Essential hypertension I10 [facility] [id number] [place] [address] [id number] May, Dental examination Z01.20 and Dental caries K02.9 [facility] [place] [address] [address] Apr, Type 2 diabetes mellitus without complication E11.9 ; Type 2 diabetes mellitus with hyperglycemia, without long-term current use of insulin E11.65 ; Idiopathic pulmonary fibrosis J84.112 ; Essential hypertension I10 ; Tobacco use Z72.0 ; Rheumatoid arthritis involving multiple sites with positive rheumatoid factor M05.79 ; Hyperlipidemia E78.5 and Chronic obstructive pulmonary disease, unspecified J44.9 [facility] [place] [address] [address] 66[address] Apr, Dental examination Z01.20 [facility] [place] [address] [address]- 8352 Apr, [facility] [place] [id number] [place] [address] 18249- 2500 Apr, [facility] [place] [id number] [place] [address] 76971- 6850 Apr, [facility] [place] [id number] [place] [address] 88908- 4328 Apr, [facility] [place] [address] [address]- 3045 Apr, [facility] [place] [address] [address]- 6188 Apr, Type 2 diabetes mellitus without complication E11.9 and Essential hypertension I10 [facility] [place] [address] [address]- 4044 Mar, [facility] [place] [id number] [address]- 8630 Mar, Rheumatoid arthritis involving multiple sites with positive rheumatoid factor M05.79 [facility] [place] [address] [address]- 9310 Mar, Type 2 diabetes mellitus without complication E11.9 ; Essential hypertension I10 and Hyperlipidemia E78.5 [facility] [place] [address] [address]- 0959 Mar, Rheumatoid arthritis involving multiple sites with positive rheumatoid factor M05.79 [facility] [place] [address] [address]- 6186 Mar, [facility] [place] [id number] [place] [address] 61358- 6508 Mar, Hyperlipidemia E78.5 ; Essential hypertension I10 and Type 2 diabetes mellitus without complication E11.9 [facility] [place] [address] [place] [address] 77351- 0116 Feb, Rheumatoid arthritis involving multiple sites with positive rheumatoid factor M05.79 and Essential hypertension I10 [facility] [place] [id number] [place] [address] 98619- 3157 Jan, Rheumatoid arthritis involving multiple sites with positive rheumatoid factor M05.79 [facility] [place] [id number] [place] [address] 91476- 6270 Dec, Rheumatoid arthritis involving multiple sites with positive rheumatoid factor M05.79 [facility] [place] [id number] [place] [address] 09238- 2149 Dec, [facility] [place] [id number] [place] [address] 14039- 2262 November, Rheumatoid arthritis involving multiple sites with positive rheumatoid factor M05.79 and Psoriasis L40.9 [facility] [place] [address] [address]- 5185 November, Hyperlipidemia E78.5 [facility] [place] [address] [place] [address] 41014- 4177 November, Type 2 diabetes mellitus without complication E11.9 [facility] [place] [address] [address]- 6752 November, [facility] [place] [id number] [place] [address] 81806- 3578 November, Rheumatoid arthritis involving multiple sites with positive rheumatoid factor M05.79 ; Hyperlipidemia E78.5 ; Type 2 diabetes mellitus without complication E11.9 ; Idiopathic pulmonary fibrosis J84.112 and Tobacco use Z72.0 [place] [id number] [place] [address] 30803- 1610 Oct, Essential hypertension I10 and Rheumatoid arthritis involving multiple sites with positive rheumatoid factor M05.79 [place] [address] 90332- 8939 Sep, Rheumatoid arthritis involving multiple sites with positive rheumatoid factor M05.79 and Psoriasis L40.[address] 19153- 0743 Jul, Rheumatoid arthritis involving multiple sites with positive rheumatoid factor M05.79 [place] [address] 48208- 1325 Jul, Idiopathic pulmonary fibrosis J84.112 [place] [address] [id number] Jul, [place] [address] 00582- 7623 Jul, Idiopathic pulmonary fibrosis J84.112 [place] [address] 50312- 8881 Jul, Idiopathic pulmonary fibrosis J84.112 and Hypoxia R09.02 [id number] [place] [address] 62193- 7536 Jul, Cough R05 and Idiopathic pulmonary fibrosis J84.112 [place] [id number] [place] [address] 05158- 4363 Apr, Type 2 diabetes mellitus without complication E11.9 ; Rheumatoid arthritis involving multiple sites with positive rheumatoid factor M05.79 ; Psoriasis L40.9 ; Hyperlipidemia E78.5 ; Idiopathic pulmonary fibrosis J84.112 and Essential hypertension I10 [place] [address] 64978- 1344 Feb, [facility] [place] [address] [address]- 7583 Feb, [facility] [place] [id number] [place] [address] 51955- 1483 Dec, Right ankle gives way M25.371 [facility] [place] [address] [place] [address] 79307- 4733 November, [facility] [place] [id number] [place] [address] 34672- 0504 November, Wrist pain, left M25.532 [facility] [place] [id number] [place] [address] 42612- 4155 Sep, Psoriasis L40.9 [facility] [place] [id number] [place] [address] 46413- 3238 Sep, COPD exacerbation J44.1 [facility] [place] [id number] [place] [address] 18907- 3340 Aug, [facility] [place] [address] [place] [address] 34773- 0232 Aug, Rheumatoid arthritis involving multiple sites with positive rheumatoid factor M05.79 and Hyperlipidemia E78.5 [facility] [place] [address] [address]- 4886 Aug, [facility] [place] [address] [place] [address] 35438- 0123 Aug, Psoriasis L40.9 ; Rheumatoid arthritis involving multiple sites with positive rheumatoid factor M05.79 and Essential hypertension I10 [facility] [place] [address] [place] [address] 44421- 3082 Jul, [facility] [place] [address] [place] [address] 26535- 0978 Jul, [facility] [place] [address] [address]- 5301 Jul, Type 2 diabetes mellitus without complication E11.9 ; Hyperlipidemia E78.5 and Rheumatoid arthritis involving multiple sites with positive rheumatoid factor M05.79 [facility] [place] [id number] [place] [address] 92266- 0821 Jun, [facility] [place] [id number] [place] [address] 00402- 1854 Apr, [facility] [place] [id number] [place] [address] 59158- 6291 Mar, [facility] [place] [address] 95584- 6781 Mar, [facility] [place] [address] 05621- 7836 Mar, Rheumatoid arthritis 714.0 ; Other psoriasis 696.1 and Cellulitis, axillary fold 682.3 [place] [id number] [place] [address] 92897- 8536 Jan, [facility] [place] [id number] [place] [address] 31223- 6846 Dec, [facility] [place] [id number] [place] [address] 30666- 6047 Dec, Other and unspecified hyperlipidemia 272.4 ; Other psoriasis 696.1 and Diabetes mellitus without mention of complication, type II or unspecified type, not stated as uncontrolled 250.00 [facility] [place] [id number] [place] [address] 88086- 4646 Dec, [facility] [place] [id number] [place] [address] 85488- 2516 November, [facility] [place] [id number] [place] [address] 74599- 2820 Oct, [facility] [place] [id number] [place] [address] 17565- 0881 Oct, [facility] [place] [id number] [place] [address] 61844- 9013 Sep, [facility] [place] [facility] [address] [id number] [place] [address]- 9037 24 Sep, 2014 [facility] [place] [facility] [address] [id number] [place] [address]- 6806 20 Sep, 2014 [facility] [place] [facility] [address] [id number] [place] [address]- 4852 20 Sep, 2014 [facility] [place] [facility] [address] [id number] [place] [address]- 7739 13 Sep, 2014 [facility] [place] [facility] [address] [id number] [place] [address]- 6475 Sep, [facility] [place] [facility] [address] [id number] [place] [address]- 1639 Sep, [facility] [place] [facility] [address] [id number] [place] [address]- 5479 Sep, [facility] [place] [facility] [address] [id number] [place] [address]- 7474 Sep, [facility] [place] [facility] [address] [id number] [place] [address]- 4771 Sep, [facility] [place] [facility] [address] [id number] [place] [address]- 2274 Jul, [facility] [place] [facility] [address] [id number] [place] [address]- 6491 Jul, [facility] [place] [facility] [address] [id number] [place] [address]- 1608 Jul, [facility] [place] [facility] [address] [id number] [place] [address]- 6272 Jul, [facility] [place] [facility] [address] [id number] [place] [address]- 8706 15 Jul, 2014 [facility] [place] [facility] [address] [id number] [place] [address]- 5360 15 Jul, 2014 [facility] [place] [facility] [address] [id number] [place] [address]- 1086 Jul, [facility] [place] [facility] [address] [id number] [place] [address]- 6425 Jul, [facility] [place] [facility] [address] [id number] [place] [address]- 6809 Jun, [facility] [place] [facility] [address] [id number] [place] [address]- 9131 Jun, [facility] [place] [facility] [address] [id number] [place] [address]- 0509 Jun, [facility] [place] [facility] [address] [id number] [place] [address]- 7379 Jun, [facility] [place] [facility] [address] [id number] [place] [address]- 1595 Jun, [facility] [place] [facility] [address] [id number] [place] [address]- 3160 Jun, [facility] [place] [facility] [address] [id number] [place] [address]- 1985 Apr, [facility] [place] [facility] [address] [id number] [place] [address]- 1324 Apr, [facility] [place] [facility] [address] [id number] [place] [address]- 3313 Mar, [facility] [place] [facility] [address] [id number] [place] [address]- 2180 Mar, [facility] [place] [facility] [address] [id number] [place] [address]- 4599 Feb, [facility] [place] [facility] [address] [id number] [place] [address]- 9552 Feb, [facility] [place] [facility] [address] [id number] [place] [address]- 0827 Jan, [facility] [place] [facility] [address] [id number] [place] [address]- 5360 Jan, [facility] [place] [facility] [address] [id number] [place] [address]- 4204 Jan, [facility] [address] [id number] [place] [address]- 2732 Jan, [facility] [place] [facility] [address] [id number] [place] [address]- 1860 Jan, [facility] [place] [facility] [address] [id number] [place] [address]- 8970 Dec, [facility] [place] [facility] [address] [id number] [place] [address]- 4750 Dec, [facility] [place] [facility] [address] [id number] [place] [address]- 9874 Dec, [facility] [place] [facility] [address] [id number] [place] [address]- 3659 Dec, [facility] [place] [facility] [address] [id number] [place] [address]- 8460 November, [facility] [place] [facility] [address] [id number] [place] [address]- 1079 November, [facility] [place] [facility] [address] [id number] [place] [address]- 2780 Oct, [facility] [place] [facility] [address] [id number] [place] [address]- 3488 Oct, [facility] [place] [facility] [address] [id number] [place] [address]- 7195 Sep, [facility] [place] [facility] [address] [id number] [place] [address]- 8449 Sep, [facility] [place] [facility] [address] [id number] [place] [address]- 1692 Sep, [facility] [place] [facility] [address] [id number] [place] [address]- 2546 Sep, [facility] [place] [facility] [address] [id number] [place] [address]- 1898 Aug, [facility] [place] [facility] [address] [id number] [place] [address]- 2269 Aug, [facility] [place] [facility] [address] [id number] [place] [address]- 2406 Aug, [facility] [place] [facility] [address] [id number] [place] [address]- 2476 Aug, [facility] [place] [facility] [address] [id number] [place] [address]- 9439 Aug, [facility] [place] [facility] [address] [id number] [place] [address]- 9073 Aug, [facility] [place] [facility] [address] [id number] [place] [address]- 8564 Jul, [facility] [place] [facility] [address] [id number] [place] [address]- 9915 Jul, [facility] [place] [facility] [address] [id number] [place] [address]- 7874 Jul, [facility] [place] [facility] [address] [id number] [place] [address]- 2876 Jul, [facility] [place] [facility] [address] [id number] [place] [address]- 6487 Jul, [facility] [place] [facility] [address] [id number] [place] [address]- 7086 Jul, [facility] [place] [facility] [address] [id number] [address]- 1046 Jul, [facility] [place] [facility] [address] [id number] [place] [address] Jul, [facility] [place] [facility] [address] [id number] [place] [address] Jun, [facility] [place] [facility] [address] [id number] [place] [address] Jun, [facility] [place] [facility] [address] [id number] [place] [address] Jun, [facility] [address] [id number] [place] [address] Jun, [facility] [place] [facility] [address] [id number] [place] [address] Jun, [facility] [place] [facility] [address] [id number] [place] [address] Jun, [facility] [place] [facility] [address] [id number] [place] [address] May, [facility] [place] [facility] [address] [id number] [place] [address] May, [facility] [place] [facility] [address] [id number] [place] [address] May, [facility] [place] [facility] [address] [id number] [place] [address] May, [facility] [place] [facility] [address] [id number] [place] [address] Apr, [facility] [place] [facility] [address] [id number] [place] [address] Apr, [facility] [place] [facility] [address] [id number] [place] [address] 08 Apr, 2013 [facility] [place] [facility] [address] [id number] [place] [address] 07 Apr, 2013 [facility] [place] [facility] [address] [id number] [place] [address] 25 Mar, 2013 [facility] [place] [facility] [address] [id number] [place] [address] 23 Mar, 2013 [facility] [place] [facility] [address] [id number] [place] [address] 16 Mar, 2013 [facility] [place] [facility] [address] [id number] [place] [address] Mar, [facility] [place] [facility] [address] [id number] [place] [address] Mar, [facility] [address] [id number] [place] [address] Mar, [facility] [address] [id number] [place] [address] Feb, [facility] [place] [facility] [address] [id number] [place] [address] Feb, [facility] [address] [id number] [place] [address] Feb, [facility] [address] [id number] [place] [address] Feb, [facility] [address] [id number] [place] [address] Jan, [facility] [address] [id number] [place] [address] Dec, [facility] [address] [id number] [place] [address] November, [facility] [address] [id number] [place] [address] Sep, [facility] [address] [id number] [place] [address] Aug, [facility] [address] [id number] [address] Aug, [facility] [place] [facility] [address] [id number] [place] [address] Jul, [facility] [place] [facility] [address] [id number] [place] [address] Jul, [facility] [place] [facility] [address] [id number] [place] [address] Jun, [facility] [place] [facility] [address] [id number], [place] [address] Jun, [facility] [place] [facility] [address] [id number] [place] [address] Jun, [facility] [place] [facility] [address] [id number] [place] [address] Jun, [facility] [place] [facility] [address] [facility] [id number] [place] [address] Jun, [facility] [place] [facility] [address] [id number] [place] [address] 06 Jun, 2012 [facility] [place] [facility] [address] [id number] [place] [address] 30 May, 2012 [facility] [place] [facility] [address] [id number] [place] [address] 29 May, 2012 [facility] [place] [facility] [address] [id number] [place] [address] 28 May, 2012 [facility] [place] [facility] [address] [id number] [place] [address] 28 May, 2012 [facility] [place] [facility] [address] [facility] [id number] [place] [address] 27 May, 2012 [facility] [place] [facility] [address] [facility] [id number] [place] [address] 27 May, 2012 [facility] [place] [facility] [address] [facility] [id number] [place] [address] 15 May, 2012 [facility] [place] [facility] [address] [id number] [place] [address] 15 May, 2012 [facility] [place] [facility] [address] [id number] [place] [address] 14 May, 2012 [facility] [place] [facility] [address] [facility] [id number] [place] [address] 14 May, 2012 [facility] [place] [facility] [address] [facility] [id number] [place] [address] 12 May, 2012 [facility] [place] [facility] [address] [id number] [place] [address] May, [facility] [place] [facility] [address] [id number] [place] [address] May, [facility] [place] [facility] [address] [id number] [place] [address] May, [facility] [place] [facility] [address] [id number] [place] [address] May, [facility] [place] [facility] [address] [id number] [place] [address] Apr, [facility] [place] [facility] [address] [id number] [place] [address] Apr, [facility] [place] [facility] [address] [id number] [place] [address] Apr, [facility] [place] [facility] [address] [id number] [place] [address] 119[address] Apr, [facility] [place] [facility] [address] [id number] [place] [address] Apr, [facility] [place] [facility] [address] [id number] [place] [address] Apr, [facility] [place] [facility] [address] [id number] [place] [address] Apr, [facility] [place] [facility] [address] [id number] [place] [address] Apr, [facility] [place] [facility] [address] [id number] [place] [address] Apr, [facility] [place] [facility] [address] [id number] [place] [address] Apr, [facility] [place] [facility] [address] [id number] [place] [address] Mar, [facility] [place] [facility] [address] [id number] [place] [address] 24 Mar, 2012 [facility] [place] [address] [facility] [place] [id number], [place] [address] Mar, [facility] [place] [id number] [address] Mar, [facility] [place] [address] [address] Feb, [facility] [place] [id number] [address] Feb, [facility] [place] [address] [facility] [id number], [place] [address] Feb, [facility] [place] [id number] [place] [address] Feb, [facility] [place] [id number] [address] Feb, [facility] [place] [id number] [address] November, [facility] [place] [id number], [place] [address] Aug, [facility] [place] [id number], [place] [address] May, [facility] [place] [id number] [address] May, [facility] [place] [address] [id number] [address] Apr, [facility] [place] [address] [id number] [address] Mar, IMMUNIZATIONS No Known Immunizations SOCIAL HISTORY Never Assessed REASON FOR VISIT Refill Request PLAN OF CARE VITAL SIGNS MEDICATIONS Medication Instructions Dosage Frequency Start Date End Date Duration Status Lipitor 40 mg Orally Once a day 1 tablet 24h Active Lisinopril 20 mg Orally Once a day 1 tablet 24h 10 Aug, 2015 Active RESULTS No Results PROCEDURES No Known [...]
--- OUTSIDE RECORDS SUMMARY | 2018-09-03 15:01 | XMS REPORT ---
Author Author GENEVIEVE JOSE F [facility] Address [address] [place] [address] Care Team Providers Care Advertising Sales Manager Name Role Phone GENEVIEVESANTOSH LEMAHANY Unavailable PROBLEMS Type Condition ICD9-CM Code FAA08-LY Code Onset Dates Condition Status SNOMED Code Problem Psoriasis L40.9 Active 6609487 Problem Rheumatoid arthritis involving multiple sites with positive rheumatoid factor M05.79 Active 353017033 Problem Vision loss, left eye H54.62 Active 64952040 Problem Primary insomnia F51.01 Active 5953515 Problem Other elevated white blood cell (WBC) count D72.828 Active 261121995 Problem Essential hypertension I10 Active 88379918 Problem Hematochezia K92.1 Active 460237294 Problem Type 2 diabetes mellitus with hyperglycemia, without long-term current use of insulin E11.65 Active 62693075 Problem Tobacco use Z72.0 Active 484239566 Problem Renal cyst, right N28.1 Active 77254982 Problem Idiopathic pulmonary fibrosis J84.112 Active 396713110 Problem Chronic obstructive pulmonary disease, unspecified J44.9 Active 77952432 Problem Lactic acidosis E87.2 Active 28533224 Problem Hyperlipidemia E78.5 Active 05888258 ALLERGIES No Information ENCOUNTERS Encounter Location Date Diagnosis [facility] [place] [id number], [place] [address] Dec, [facility] [place] [id number], [place] [address] November, [facility] [place] [address] [place] [address] 02190- 4326 November, Rheumatoid arthritis involving multiple sites with positive rheumatoid factor M05.79 [facility] [place] [id number], [place] [address] November, Rheumatoid arthritis involving multiple sites with positive rheumatoid factor M05.79 [address] [address], [place] [address] November, Rheumatoid arthritis involving multiple sites with positive rheumatoid factor M05.79 [place] [address] [place] [address] 86927- 8413 Oct, Rheumatoid arthritis involving multiple sites with positive rheumatoid factor M05.79 [place] [id number] [place] [address] 43091- 4392 Oct, [address] [address] [place] [address] 28817- 1638 Oct, Rheumatoid arthritis involving multiple sites with positive rheumatoid factor M05.79 [place] [id number] [place] [address] 71884- 0407 Oct, Rheumatoid arthritis involving multiple sites with positive rheumatoid factor M05.79 ; Type 2 diabetes mellitus with hyperglycemia, without long-term current use of insulin E11.65 ; Hyperlipidemia E78.5 and Other elevated white blood cell (WBC) count D72.828 [place] [address] [place] [address] 33074- 9574 Oct, Chronic obstructive pulmonary disease, unspecified J44.9 [address] [address] [place] [address] 51993- 8849 Oct, Type 2 diabetes mellitus with hyperglycemia, without long- term current use of insulin E11.65 [place] [address], [place] [address] 6259 Oct, Rheumatoid arthritis involving multiple sites with positive rheumatoid factor M05.79 [place] [address], [place] [address]- 2[address] Sep, [place] [id number] [place] [address] 68373- 2773 Sep, Visit for TB skin test Z11.1 ; Rheumatoid arthritis involving multiple sites with positive rheumatoid factor M05.79 and Psoriasis L40.9 [place] [id number] [place] [address] 22958- 2105 Sep, Type 2 diabetes mellitus with hyperglycemia, without long- term current use of insulin E11.65 ; Rheumatoid arthritis involving multiple sites with positive rheumatoid factor M05.79 ; Hyperlipidemia E78.5 ; Essential hypertension I10 ; Other elevated white blood cell (WBC) count D72.828 ; Primary insomnia F51.01 and Tobacco use Z72.0 [place] [id number] [place] [address] 74465- 5603 Sep, [place] [id number] [place] [address] 76934- 6856 Aug, Type 2 diabetes mellitus with hyperglycemia, without long- term current use of insulin E11.65 and Hyperlipidemia E78.5 [place] [id number] [place] [address] 38839- 3320 Jul, [place] [address] 66624- 9201 Jul, Rheumatoid arthritis involving multiple sites with positive rheumatoid factor M05.79 [place] [address] 84002- 8678 Jul, Rheumatoid arthritis involving multiple sites with positive rheumatoid factor M05.79 [place] [id number] [place] [address] 78016- 8381 Jun, Essential hypertension I10 and Hyperlipidemia E78.5 [place] [id number] [place] [address] 88585- 0664 Jun, Chronic obstructive pulmonary disease, unspecified J44.9 [facility] [place] [id number] [place] [address] 65689- 8518 Jun, [place] [id number] [place] [address] 93197- 7603 May, Type 2 diabetes mellitus without complication E11.9 ; Rheumatoid arthritis involving multiple sites with positive rheumatoid factor M05.79 ; Psoriasis L40.9 and Essential hypertension I10 [facility] [id number] [place] [address] [id number] May, Dental examination Z01.20 and Dental caries K02.9 [facility] [place] [address], [place] [address] 7196 Apr, Type 2 diabetes mellitus without complication [...] [place] [address], [place] [address] 1630 Apr, Dental examination Z01.20 [facility] [place] [address], [place] [address]- 1502 Apr, [facility] [place] [id number] [place] [address] 53575- 6269 Apr, [facility] [place] [address] [place] [address] 33208- 9512 Apr, [facility] [place] [id number] [place] [address] 00199- 1030 Apr, [facility] [place] [address], [place] [address]- 7595 Apr, [facility] [place] [address], [place] [address]- 5280 Apr, Type 2 diabetes mellitus without complication E11.9 and Essential hypertension I10 [facility] [place] [address], [place] [address]- 0182 Mar, [facility] [place] [address], [place] [address] 7966 Mar, Rheumatoid arthritis involving multiple sites with positive rheumatoid factor M05.79 [facility] [place] [address], [place] [address]- 7101 Mar, Type 2 diabetes mellitus without complication E11.9 ; Essential hypertension I10 and Hyperlipidemia E78.5 [facility] [place] [address], [place] [address]- 2684 Mar, Rheumatoid arthritis involving multiple sites with positive rheumatoid factor M05.79 [facility] [place] [address], [place] [address]- 6006 Mar, [facility] [place] [id number] [place] [address] 35559- 6109 Mar, Hyperlipidemia E78.5 ; Essential hypertension I10 and Type 2 diabetes mellitus without complication E11.9 [facility] [place] [address] [place] [address] 50877- 2551 Feb, Rheumatoid arthritis involving multiple sites with positive rheumatoid factor M05.79 and Essential hypertension I10 [facility] [place] [id number] [place] [address] 00446- 0630 Jan, Rheumatoid arthritis involving multiple sites with positive rheumatoid factor M05.79 [facility] [place] [id number] [place] [address] 13161- 4993 Dec, Rheumatoid arthritis involving multiple sites with positive rheumatoid factor M05.79 [facility] [place] [id number] [place] [address] 45059- 4616 Dec, [facility] [place] [id number] [place] [address] 42249- 8667 November, Rheumatoid arthritis involving multiple sites with positive rheumatoid factor M05.79 and Psoriasis L40.9 [facility] [place] [address], [place] [address]- 8588 November, Hyperlipidemia E78.5 [facility] [place] [address] [place] [address] 60760- 7339 November, Type 2 diabetes mellitus without complication E11.9 [facility] [place] [address], [place] [address]- 5618 November, [facility] [place] [id number] [place] [address] 46306- 0010 November, Rheumatoid arthritis involving multiple sites with positive rheumatoid factor M05.79 ; Hyperlipidemia E78.5 ; Type 2 diabetes mellitus without complication E11.9 ; Idiopathic pulmonary fibrosis J84.112 and Tobacco use Z72.0 [place] [id number] [place] [address] 86279- 0119 Oct, Essential hypertension I10 and Rheumatoid arthritis involving multiple sites with positive rheumatoid factor M05.79 [address] [address] 87517- 8998 Sep, Rheumatoid arthritis involving multiple sites with positive rheumatoid factor M05.79 and Psoriasis L40.[address] 51216- 1160 Jul, Rheumatoid arthritis involving multiple sites with positive rheumatoid factor M05.79 [address] [address] 91600- 5372 Jul, Idiopathic pulmonary fibrosis J84.112 [address] [address] [id number] Jul, [place] [address] 97435- 1403 Jul, Idiopathic pulmonary fibrosis J84.112 [address] [address] 86723- 3279 Jul, Idiopathic pulmonary fibrosis J84.112 and Hypoxia R09.02 [id number] [place] [address] 71293- 2232 Jul, Cough R05 and Idiopathic pulmonary fibrosis J84.112 [place] [id number] [place] [address] 51012- 8183 Apr, Type 2 diabetes mellitus without complication E11.9 ; Rheumatoid arthritis involving multiple sites with positive rheumatoid factor M05.79 ; Psoriasis L40.9 ; Hyperlipidemia E78.5 ; Idiopathic pulmonary fibrosis J84.112 and Essential hypertension I10 [address] [address] 69849- 6469 Feb, [facility] [place] [address], [place] [address]- 8362 Feb, [facility] [place] [id number] [place] [address] 34066- 4524 Dec, Right ankle gives way M25.371 [facility] [place] [address] [place] [address] 92911- 0307 November, [facility] [place] [id number] [place] [address] 73436- 1151 November, Wrist pain, left M25.532 [facility] [place] [id number] [place] [address] 41084- 4018 Sep, Psoriasis L40.9 [facility] [place] [id number] [place] [address] 62760- 7648 Sep, COPD exacerbation J44.1 [facility] [place] [id number] [place] [address] 76241- 0602 Aug, [facility] [place] [address] [place] [address] 84014- 5156 Aug, Rheumatoid arthritis involving multiple sites with positive rheumatoid factor M05.79 and Hyperlipidemia E78.5 [facility] [place] [address], [place] [address]- 1548 Aug, [facility] [place] [address] [place] [address] 20408- 2484 Aug, Psoriasis L40.9 ; Rheumatoid arthritis involving multiple sites with positive rheumatoid factor M05.79 and Essential hypertension I10 [facility] [place] [address] [place] [address] 25661- 4637 Jul, [facility] [place] [address] [place] [address] 57963- 4816 Jul, [facility] [place] [address], [place] [address]- 6116 Jul, Type 2 diabetes mellitus without complication E11.9 ; Hyperlipidemia E78.5 and Rheumatoid arthritis involving multiple sites with positive rheumatoid factor M05.79 [facility] [place] [id number] [place] [address] 89135- 4922 Jun, [facility] [place] [id number] [place] [address] 44444- 2694 Apr, [facility] [place] [id number] [place] [address] 86393- 9917 Mar, [facility] [place] [address] 51522- 6419 Mar, [facility] [place] [address] 47674- 6264 Mar, Rheumatoid arthritis 714.0 ; Other psoriasis 696.1 and Cellulitis, axillary fold 682.3 [place] [id number] [place] [address] 44128- 1614 Jan, [facility] [place] [id number] [place] [address] 58828- 6793 Dec, [facility] [place] [id number] [place] [address] 55678- 4545 Dec, Other and unspecified hyperlipidemia 272.4 ; Other psoriasis 696.1 and Diabetes mellitus without mention of complication, type II or unspecified type, not stated as uncontrolled 250.00 [facility] [place] [id number] [place] [address] 30276- 4035 Dec, [facility] [place] [id number] [place] [address] 26770- 4812 November, [facility] [place] [id number] [place] [address] 98264- 4101 Oct, [facility] [place] [id number] [place] [address] 89016- 9592 Oct, [facility] [place] [id number] [place] [address] 64214- 1793 Sep, [facility] [place] [facility] [address] [id number] [place] [address]- 6298 24 Sep, 2014 [facility] [place] [facility] [address] [id number] [place] [address]- 1891 20 Sep, 2014 [facility] [place] [facility] [address] [id number] [place] [address]- 1809 20 Sep, 2014 [facility] [place] [facility] [address] [id number] [place] [address]- 4217 13 Sep, 2014 [facility] [place] [facility] [address] [id number] [place] [address]- 0173 Sep, [facility] [place] [facility] [address] [id number] [place] [address]- 2531 Sep, [facility] [place] [facility] [address] [id number] [place] [address]- 4070 Sep, [facility] [place] [facility] [address] [id number] [place] [address]- 9488 Sep, [facility] [place] [facility] [address] [id number] [place] [address]- 0113 Sep, [facility] [place] [facility] [address] [id number] [place] [address]- 5969 Jul, [facility] [place] [facility] [address] [id number] [place] [address]- 5782 Jul, [facility] [place] [facility] [address] [id number] [place] [address]- 3318 Jul, [facility] [place] [facility] [address] [id number] [place] [address]- 3142 Jul, [facility] [place] [facility] [address] [id number] [place] [address]- 4609 15 Jul, 2014 [facility] [place] [facility] [address] [id number] [place] [address]- 6147 15 Jul, 2014 [facility] [place] [facility] [address] [id number] [place] [address]- 2886 Jul, [facility] [place] [facility] [address] [id number] [place] [address]- 0277 Jul, [facility] [place] [facility] [address] [id number] [place] [address]- 8388 Jun, [facility] [place] [facility] [address] [id number] [place] [address]- 1944 Jun, [facility] [place] [facility] [address] [id number] [place] [address]- 2494 Jun, [facility] [place] [facility] [address] [id number] [place] [address]- 1339 Jun, [facility] [place] [facility] [address] [id number] [place] [address]- 8645 Jun, [facility] [place] [facility] [address] [id number] [place] [address]- 3785 Jun, [facility] [place] [facility] [address] [id number] [place] [address]- 3458 Apr, [facility] [place] [facility] [address] [id number] [place] [address]- 1812 Apr, [facility] [place] [facility] [address] [id number] [place] [address]- 1517 Mar, [facility] [place] [facility] [address] [id number] [place] [address]- 6735 Mar, [facility] [place] [facility] [address] [id number] [place] [address]- 7660 Feb, [facility] [place] [facility] [address] [id number] [place] [address]- 9333 Feb, [facility] [place] [facility] [address] [id number] [place] [address]- 3055 Jan, [facility] [place] [facility] [address] [id number] [place] [address]- 3726 Jan, [facility] [place] [facility] [address] [id number] [place] [address]- 5994 Jan, [facility] [address] [id number] [place] [address]- 2275 Jan, [facility] [place] [facility] [address] [id number] [place] [address]- 9040 Jan, [facility] [place] [facility] [address] [id number] [place] [address]- 8202 Dec, [facility] [place] [facility] [address] [id number] [place] [address]- 6055 Dec, [facility] [place] [facility] [address] [id number] [place] [address]- 0192 Dec, [facility] [place] [facility] [address] [id number] [place] [address]- 5700 Dec, [facility] [place] [facility] [address] [id number] [place] [address]- 7168 November, [facility] [place] [facility] [address] [id number] [place] [address]- 1807 November, [facility] [place] [facility] [address] [id number] [place] [address]- 2815 Oct, [facility] [place] [facility] [address] [id number] [place] [address]- 0732 Oct, [facility] [place] [facility] [address] [id number] [place] [address]- 9206 Sep, [facility] [place] [facility] [address] [id number] [place] [address]- 9016 Sep, [facility] [place] [facility] [address] [id number] [place] [address]- 4975 Sep, [facility] [place] [facility] [address] [id number] [place] [address]- 2546 Sep, [facility] [place] [facility] [address] [id number] [place] [address]- 0738 Aug, [facility] [place] [facility] [address] [id number] [place] [address]- 2001 Aug, [facility] [place] [facility] [address] [id number] [place] [address]- 9236 Aug, [facility] [place] [facility] [address] [id number] [place] [address]- 7066 Aug, [facility] [place] [facility] [address] [id number] [place] [address]- 1365 Aug, [facility] [place] [facility] [address] [id number] [place] [address]- 2328 Aug, [facility] [place] [facility] [address] [id number] [place] [address]- 5512 Jul, [facility] [place] [facility] [address] [id number] [place] [address]- 6783 Jul, [facility] [place] [facility] [address] [id number] [place] [address]- 9833 Jul, [facility] [place] [facility] [address] [id number] [place] [address] Jul, [facility] [place] [facility] [address] [id number] [place] [address] Jul, [facility] [place] [facility] [address] [id number] [place] [address] Jul, [facility] [place] [facility] [address] [id number], [place] [address] Jul, [facility] [place] [facility] [address] [id number] [place] [address] Jul, [facility] [place] [facility] [address] [id number] [place] [address] Jun, [facility] [place] [facility] [address] [id number] [place] [address] Jun, [facility] [place] [facility] [address] [id number] [place] [address] Jun, [facility] [address] [id number] [place] [address] Jun, [facility] [place] [facility] [address] [id number] [place] [address] Jun, [facility] [place] [facility] [address] [id number] [place] [address] Jun, [facility] [place] [facility] [address] [id number] [place] [address] May, [facility] [place] [facility] [address] [id number] [place] [address] May, [facility] [place] [facility] [address] [id number] [place] [address] May, [facility] [place] [facility] [address] [id number] [place] [address] May, [facility] [place] [facility] [address] [id number] [place] [address] Apr, [facility] [place] [facility] [address] [id number] [place] [address] Apr, [facility] [place] [facility] [address] [id number] [place] [address] 08 Apr, 2013 [facility] [place] [facility] [address] [id number] [place] [address] 07 Apr, 2013 [facility] [place] [facility] [address] [id number] [place] [address] 25 Mar, 2013 [facility] [place] [facility] [address] [id number] [place] [address] 23 Mar, 2013 [facility] [place] [facility] [address] [id number] [place] [address] 16 Mar, 2013 [facility] [place] [facility] [address] [id number] [place] [address] Mar, [facility] [place] [facility] [address] [id number] [place] [address] Mar, [facility] [address] [id number] [place] [address] Mar, [facility] [address] [id number] [place] [address] Feb, [facility] [place] [facility] [address] [id number] [place] [address] Feb, [facility] [address] [id number] [place] [address] Feb, [facility] [address] [id number] [place] [address] Feb, [facility] [address] [id number] [place] [address] Jan, [facility] [facility] [address] [id number] [place] [address] Dec, [facility] [address] [id number] [place] [address] November, [facility] [address] [id number] [place] [address] Sep, [facility] [address] [id number] [place] [address] Aug, [facility] [address] [id number], [place] [address] Aug, [facility] [place] [facility] [address] [id number] [place] [address] Jul, [facility] [place] [facility] [address] [id number] [place] [address] Jul, [facility] [place] [facility] [address] [id number] [place] [address] Jun, [facility] [place] [facility] [address] [id number], [place] [address] Jun, [facility] [place] [facility] [address] [id number] [place] [address] Jun, [facility] [place] [facility] [address] [id number] [place] [address] Jun, [facility] [place] [facility] [address] [facility] [address] [facility] [id number] [place] [address] Jun, [facility] [place] [facility] [address] [id number] [place] [address] 06 Jun, 2012 [facility] [place] [facility] [address] [id number] [place] [address] 30 May, 2012 [facility] [place] [facility] [address] [id number] [place] [address] 29 May, 2012 [facility] [place] [facility] [address] [id number] [address] 28 May, 2012 [facility] [place] [facility] [address] [id number] [place] [address] 28 May, 2012 [facility] [place] [facility] [address] [facility] [id number] [place] [address] 27 May, 2012 [facility] [place] [facility] [address] [facility] [id number] [place] [address] 27 May, 2012 [facility] [place] [facility] [address] [facility] [id number] [place] [address] 15 May, 2012 [facility] [place] [facility] [address] [id number] [place] [address] 15 May, 2012 [facility] [place] [facility] [address] [id number] [place] [address] 14 May, 2012 [facility] [place] [facility] [address] [facility] [id number] [place] [address] 14 May, 2012 [facility] [place] [facility] [address] [facility] [id number] [place] [address] 12 May, 2012 [facility] [place] [facility] [address] [id number] [place] [address] May, [facility] [place] [facility] [address] [id number] [place] [address] May, [facility] [place] [facility] [address] [id number] [place] [address] May, [facility] [place] [facility] [address] [id number] [place] [address] May, [facility] [place] [facility] [address] [id number] [place] [address] Apr, [facility] [place] [facility] [address] [id number] [place] [address] Apr, [facility] [place] [facility] [address] [id number] [place] [address] Apr, [facility] [place] [facility] [address] [id number] [place] [address] Apr, [facility] [place] [facility] [address] [id number] [place] [address] Apr, [facility] [place] [facility] [address] [id number] [place] [address] Apr, [facility] [place] [facility] [address] [id number] [place] [address] Apr, [facility] [place] [facility] [address] [id number] [place] [address] Apr, [facility] [place] [facility] [address] [id number] [place] [address] Apr, [facility] [place] [facility] [address] [id number] [place] [address] Apr, [facility] [place] [facility] [address] [id number] [place] [address] Mar, [facility] [place] [facility] [address] [id number] [place] [address] 24 Mar, 2012 [facility] [place] [address] [facility] [id number], [place] [address] 14 Mar, 2012 [facility] [place] [address], [place] [address] Mar, [facility] [place] [address], [place] [address] Feb, [facility] [place] [address], [place] [address] Feb, [facility] [place] [address] [facility] [id number], [place] [address] Feb, [facility] [place] [address], [place] [address] Feb, [facility] [place] [address], [place] [address] Feb, [facility] [place] [address], [place] [address] November, [facility] [place] [address], [place] [address] Aug, [facility] [place] [address], [place] [address] May, [facility] [place] [address], [place] [address] May, [facility] [place] [address] [id number], [place] [address] Apr, [facility] [place] [address] [id number], [place] [address] Mar, IMMUNIZATIONS No Known Immunizations SOCIAL HISTORY Never Assessed REASON FOR VISIT eye exam PLAN OF CARE VITAL SIGNS MEDICATIONS Unknown [...]
--- OUTSIDE RECORDS SUMMARY | 2018-09-03 15:01 | XMS REPORT ---
Author Author GENEVIEVE JOSE F [facility] Address [address] [place] [address] Care Team Providers Care Stump Shooter Name Role Phone GENEVIEVESANTOSH LEMAHANY Unavailable PROBLEMS Type Condition ICD9-CM Code [id number] Code Onset Dates Condition Status SNOMED Code Problem Psoriasis L40.9 Active 8673524 Problem Rheumatoid arthritis involving multiple sites with positive rheumatoid factor M05.79 Active 769937177 Problem Vision loss, left eye H54.62 Active 25867957 Problem Primary insomnia F51.01 Active 2073685 Problem Other elevated white blood cell (WBC) count D72.828 Active 491165745 Problem Essential hypertension I10 Active 15016841 Problem Hematochezia K92.1 Active 047557842 Problem Type 2 diabetes mellitus with hyperglycemia, without long-term current use of insulin E11.65 Active 70587181 Problem Tobacco use Z72.0 Active 718133140 Problem Renal cyst, right N28.1 Active 20791183 Problem Idiopathic pulmonary fibrosis J84.112 Active 427888024 Problem Chronic obstructive pulmonary disease, unspecified J44.9 Active 76727553 Problem Lactic acidosis E87.2 Active 21166155 Problem Hyperlipidemia E78.5 Active 02702108 ALLERGIES No Information ENCOUNTERS Encounter Location Date Diagnosis [facility] [id number] [address] Dec, [facility] [id number] [address] November, [facility] [id number] [place] [address]1190- 2163 November, Rheumatoid arthritis involving multiple sites with positive rheumatoid factor M05.79 [facility] [id number] [address] November, Rheumatoid arthritis involving multiple sites with positive rheumatoid factor M05.79 [place] [address] [address] November, Rheumatoid arthritis involving multiple sites with positive rheumatoid factor M05.79 [place] [address] [place] [address] 23007- 1749 Oct, Rheumatoid arthritis involving multiple sites with positive rheumatoid factor M05.79 [facility] [id number] [place] [address] 20368- 5549 Oct, [place] [id number] [place] [address] 50428- 6197 Oct, Rheumatoid arthritis involving multiple sites with positive rheumatoid factor M05.79 [facility] [facility] [id number] [place] [address] 59849- 0181 Oct, Rheumatoid arthritis involving multiple sites with positive rheumatoid factor M05.79 ; Type 2 diabetes mellitus with hyperglycemia, without long-term current use of insulin E11.65 ; Hyperlipidemia E78.5 and Other elevated white blood cell (WBC) count D72.828 [place] [address] [place] [address] 23255- 5112 Oct, Chronic obstructive pulmonary disease, unspecified J44.9 [place] [address] [place] [address] 66442- 8777 Oct, Rheumatoid arthritis involving multiple sites with positive rheumatoid factor M05.79 [place] [address] [place] [address] 63123- 5802 Oct, Type 2 diabetes mellitus with hyperglycemia, without long- term current use of insulin E11.65 [place] [address] [address]100 Sep, [facility] [id number] [place] [address] 84792- 0813 Sep, Rheumatoid arthritis involving multiple sites with positive rheumatoid factor M05.79 ; Visit for TB skin test Z11.1 and Psoriasis L40.9 [place] [id number] [place] [address] 92113- 4570 Sep, Type 2 diabetes mellitus with hyperglycemia, without long- term current use of insulin E11.65 ; Rheumatoid arthritis involving multiple sites with positive rheumatoid factor M05.79 ; Hyperlipidemia E78.5 ; Essential hypertension I10 ; Other elevated white blood cell (WBC) count D72.828 ; Primary insomnia F51.01 and Tobacco use Z72.0 [place] [id number] [place] [address] 21301- 6631 Sep, [place] [facility] [id number] [place] [address] 15152- 9586 Aug, Type 2 diabetes mellitus with hyperglycemia, without long- term current use of insulin E11.65 and Hyperlipidemia E78.5 [place] [id number] [place] [address] 94422- 2845 Jul, [place] [address] [address]- 0410 Jul, Rheumatoid arthritis involving multiple sites with positive rheumatoid factor M05.79 [place] [address] [address]40- 6865 Jul, Rheumatoid arthritis involving multiple sites with positive rheumatoid factor M05.79 [place] [id number] [place] [address] 56510- 8312 Jun, Essential hypertension I10 and Hyperlipidemia E78.5 [place] [id number] [place] [address] 62096- 9893 Jun, Chronic obstructive pulmonary disease, unspecified J44.9 [facility] [id number] [place] [address] 23286- 1470 Jun, [place] [id number] [place] [address] 00101- 9799 May, Type 2 diabetes mellitus without complication E11.9 ; Rheumatoid arthritis involving multiple sites with positive rheumatoid factor M05.79 ; Psoriasis L40.9 and Essential hypertension I10 [facility] [id number] [place] [address] [id number] May, Dental examination Z01.20 and Dental caries K02.9 [facility] [address] [address] 6661 Apr, Type 2 diabetes mellitus without complication E11.9 ; Type 2 diabetes mellitus with hyperglycemia, without long-term current use of insulin E11.65 ; Idiopathic pulmonary fibrosis J84.112 ; Essential hypertension I10 ; Tobacco use Z72.0 ; Rheumatoid arthritis involving multiple sites with positive rheumatoid factor M05.79 ; Hyperlipidemia E78.5 and Chronic obstructive pulmonary disease, unspecified J44.9 [facility] [address] [address]- 6563 Apr, Dental examination Z01.20 [facility] [address] [address]- 0395 Apr, [facility] [id number] [place] [address] 21684- 7369 Apr, [facility] [address] [place] [address] 85455- 9866 Apr, [facility] [id number] [place] [address] 12248- 3397 Apr, [facility] [address] [address]- 5997 Apr, [facility] [address] [address]- 5942 Apr, Type 2 diabetes mellitus without complication E11.9 and Essential hypertension I10 [facility] [address] [address]- 2685 Mar, [facility] [address] [address]- 4210 Mar, Rheumatoid arthritis involving multiple sites with positive rheumatoid factor M05.79 [facility] [address] [address]- 7548 Mar, Type 2 diabetes mellitus without complication E11.9 ; Essential hypertension I10 and Hyperlipidemia E78.5 [facility] [address] [address]- 5165 Mar, Rheumatoid arthritis involving multiple sites with positive rheumatoid factor M05.79 [facility] [address] [address]- 7976 Mar, [facility] [id number] [place] [address] 22732- 4184 Mar, Hyperlipidemia E78.5 ; Essential hypertension I10 and Type 2 diabetes mellitus without complication E11.9 [facility] [address] [place] [address] 51694- 8555 Feb, Rheumatoid arthritis involving multiple sites with positive rheumatoid factor M05.79 and Essential hypertension I10 [facility] [id number] [place] [address] 20971- 5049 Jan, Rheumatoid arthritis involving multiple sites with positive rheumatoid factor M05.79 [facility] [id number] [place] [address] 26655- 6462 Dec, Rheumatoid arthritis involving multiple sites with positive rheumatoid factor M05.79 [facility] [id number] [place] [address] 34234- 9216 Dec, [facility] [id number] [place] [address] 96555- 1004 November, Rheumatoid arthritis involving multiple sites with positive rheumatoid factor M05.79 and Psoriasis L40.9 [facility] [address] [address]- 2858 November, Hyperlipidemia E78.5 [facility] [address] [place] [address] 74609- 6988 November, Type 2 diabetes mellitus without complication E11.9 [facility] [address] [address]- 3344 November, [facility] [id number] [place] [address] 48891- 3532 November, Rheumatoid arthritis involving multiple sites with positive rheumatoid factor M05.79 ; Hyperlipidemia E78.5 ; Type 2 diabetes mellitus without complication E11.9 ; Idiopathic pulmonary fibrosis J84.112 and Tobacco use Z72.0 [place] [id number] [place] [address] 03020- 3200 Oct, Essential hypertension I10 and Rheumatoid arthritis involving multiple sites with positive rheumatoid factor M05.79 [place] [address] 08937- 6143 Sep, Rheumatoid arthritis involving multiple sites with positive rheumatoid factor M05.79 and Psoriasis L40.[address] [address]- 8822 Jul, Rheumatoid arthritis involving multiple sites with positive rheumatoid factor M05.79 [place] [address] 22616- 0926 Jul, Idiopathic pulmonary fibrosis J84.112 [place] [address] [id number] Jul, [place] [address] 34613- 0500 Jul, Idiopathic pulmonary fibrosis J84.112 [place] [address] 67050- 1194 Jul, Idiopathic pulmonary fibrosis J84.112 and Hypoxia R09.02 [id number] [place] [address] 80615- 5414 Jul, Cough R05 and Idiopathic pulmonary fibrosis J84.112 [place] [id number] [place] [address] 45213- 5687 Apr, Type 2 diabetes mellitus without complication E11.9 ; Rheumatoid arthritis involving multiple sites with positive rheumatoid factor M05.79 ; Psoriasis L40.9 ; Hyperlipidemia E78.5 ; Idiopathic pulmonary fibrosis J84.112 and Essential hypertension I10 [place] [address] 41667- 4992 Feb, [facility] [address] [address]- 8732 Feb, [facility] [id number] [place] [address] 85625- 8288 Dec, Right ankle gives way M25.371 [facility] [address] [place] [address] 08474- 9986 November, [facility] [id number] [place] [address] 89785- 2699 November, Wrist pain, left M25.532 [facility] [id number] [place] [address] 27498- 1815 Sep, Psoriasis L40.9 [facility] [id number] [place] [address] 38543- 7509 Sep, COPD exacerbation J44.1 [facility] [id number] [place] [address] 89194- 7403 Aug, [facility] [address] [place] [address] 89932- 6585 Aug, Rheumatoid arthritis involving multiple sites with positive rheumatoid factor M05.79 and Hyperlipidemia E78.5 [facility] [address] [address]- 7032 Aug, [facility] [address] [place] [address] 06679- 3782 Aug, Psoriasis L40.9 ; Rheumatoid arthritis involving multiple sites with positive rheumatoid factor M05.79 and Essential hypertension I10 [facility] [address] [place] [address] 74965- 0355 Jul, [facility] [address] [place] [address] 25561- 9124 Jul, [facility] [address] [address]- 3915 Jul, Type 2 diabetes mellitus without complication E11.9 ; Hyperlipidemia E78.5 and Rheumatoid arthritis involving multiple sites with positive rheumatoid factor M05.79 [facility] [id number] [place] [address] 08731- 3460 Jun, [facility] [id number] [place] [address] 20065- 8239 Apr, [facility] [id number] [place] [address] 50966- 2806 Mar, [facility] [address] 59225- 6778 Mar, [facility] [address] 21649- 3100 Mar, Rheumatoid arthritis 714.0 ; Other psoriasis 696.1 and Cellulitis, axillary fold 682.3 [place] [id number] [place] [address] 20124- 2015 Jan, [facility] [id number] [place] [address] 90395- 3827 Dec, [facility] [id number] [place] [address] 83597- 9377 Dec, Other and unspecified hyperlipidemia 272.4 ; Other psoriasis 696.1 and Diabetes mellitus without mention of complication, type II or unspecified type, not stated as uncontrolled 250.00 [facility] [id number] [place] [address] 79435- 9885 Dec, [facility] [id number] [place] [address] 95699- 9288 November, [facility] [id number] [place] [address] 50687- 3217 Oct, [facility] [id number] [place] [address] 04655- 0673 Oct, [facility] [id number] [place] [address] 47984- 2009 Sep, [facility] [place] [facility] [address] [id number] [place] [address]- 2458 24 Sep, 2014 [facility] [place] [facility] [address] [id number] [place] [address]- 6851 20 Sep, 2014 [facility] [place] [facility] [address] [id number] [place] [address]- 8332 20 Sep, 2014 [facility] [place] [facility] [address] [id number] [place] [address]- 0033 13 Sep, 2014 [facility] [place] [facility] [address] [id number] [place] [address]- 2363 Sep, [facility] [place] [facility] [address] [id number] [place] [address]- 0759 Sep, [facility] [place] [facility] [address] [id number] [place] [address]- 2254 Sep, [facility] [place] [facility] [address] [id number] [place] [address]- 9254 Sep, [facility] [place] [facility] [address] [id number] [place] [address]- 1379 Sep, [facility] [place] [facility] [address] [id number] [place] [address]- 5176 Jul, [facility] [place] [facility] [address] [id number] [place] [address]- 7537 Jul, [facility] [place] [facility] [address] [id number] [place] [address]- 7434 Jul, [facility] [place] [facility] [address] [id number] [place] [address]- 8008 Jul, [facility] [place] [facility] [address] [id number] [place] [address]- 3182 15 Jul, 2014 [facility] [place] [facility] [address] [id number] [place] [address]- 1064 15 Jul, 2014 [facility] [place] [facility] [address] [id number] [place] [address]- 8036 Jul, [facility] [place] [facility] [address] [id number] [place] [address]- 4058 Jul, [facility] [place] [facility] [address] [id number] [place] [address]- 5639 Jun, [facility] [place] [facility] [address] [id number] [place] [address]- 9775 Jun, [facility] [place] [facility] [address] [id number] [place] [address]- 9175 Jun, [facility] [place] [facility] [address] [id number] [place] [address]- 6790 Jun, [facility] [place] [facility] [address] [id number] [place] [address]- 2959 Jun, [facility] [place] [facility] [address] [id number] [place] [address]- 1259 Jun, [facility] [place] [facility] [address] [id number] [place] [address]- 0841 Apr, [facility] [place] [facility] [address] [id number] [place] [address]- 3235 Apr, [facility] [place] [facility] [address] [id number] [place] [address]- 9658 Mar, [facility] [place] [facility] [address] [id number] [place] [address]- 3960 Mar, [facility] [place] [facility] [address] [id number] [place] [address]- 4145 Feb, [facility] [place] [facility] [address] [id number] [place] [address]- 2218 Feb, [facility] [place] [facility] [address] [id number] [place] [address]- 9054 Jan, [facility] [place] [facility] [address] [id number] [place] [address]- 3650 Jan, [facility] [place] [facility] [address] [id number] [place] [address]- 0306 Jan, [facility] [address] [id number] [place] [address]- 9395 Jan, [facility] [place] [facility] [address] [id number] [place] [address]- 9966 Jan, [facility] [place] [facility] [address] [id number] [place] [address]- 6256 Dec, [facility] [place] [facility] [address] [id number] [place] [address]- 0316 Dec, [facility] [place] [facility] [address] [id number] [place] [address]- 7977 Dec, [facility] [place] [facility] [address] [id number] [place] [address]- 6055 Dec, [facility] [place] [facility] [address] [id number] [place] [address]- 2249 November, [facility] [place] [facility] [address] [id number] [place] [address]- 1158 November, [facility] [place] [facility] [address] [id number] [place] [address]- 5683 Oct, [facility] [place] [facility] [address] [id number] [place] [address]- 0671 Oct, [facility] [place] [facility] [address] [id number] [place] [address]- 3325 Sep, [facility] [place] [facility] [address] [id number] [place] [address]- 8860 Sep, [facility] [place] [facility] [address] [id number] [place] [address]- 3983 Sep, [facility] [place] [facility] [address] [id number] [place] [address]- 2546 Sep, [facility] [place] [facility] [address] [id number] [place] [address]- 6461 Aug, [facility] [place] [facility] [address] [id number] [place] [address]- 1573 Aug, [facility] [place] [facility] [address] [id number] [place] [address]- 3966 Aug, [facility] [place] [facility] [address] [id number] [place] [address]- 7186 Aug, [facility] [place] [facility] [address] [id number] [place] [address]- 4081 Aug, [facility] [place] [facility] [address] [id number] [place] [address]- 5240 Aug, [facility] [place] [facility] [address] [id number] [place] [address]- 4037 Jul, [facility] [place] [facility] [address] [id number] [place] [address]- 3361 Jul, [facility] [place] [facility] [address] [id number] [place] [address]- 8576 Jul, [facility] [place] [facility] [address] [id number] [place] [address]- 7594 Jul, [facility] [place] [facility] [address] [id number] [place] [address]- 8238 Jul, [facility] [place] [facility] [address] [id number] [place] [address]- 8087 Jul, [facility] [place] [facility] [address] [id number] [address]- 8188 Jul, [facility] [place] [facility] [address] [id number] [place] [address]- 4745 Jul, [facility] [place] [facility] [address] [id number] [place] [address]- 9980 Jun, [facility] [place] [facility] [address] [id number] [place] [address]- 1443 Jun, [facility] [place] [facility] [address] [id number] [place] [address]- 7185 Jun, [facility] [address] [id number] [place] [address]- 8371 Jun, [facility] [place] [facility] [address] [id number] [place] [address]- 3204 Jun, [facility] [place] [facility] [address] [id number] [place] [address]- 5314 Jun, [facility] [place] [facility] [address] [id number] [place] [address]- 9276 May, [facility] [place] [facility] [address] [id number] [place] [address]- 8747 May, [facility] [place] [facility] [address] [id number] [place] [address]- 3972 May, [facility] [place] [facility] [address] [id number] [place] [address]- 9599 May, [facility] [place] [facility] [address] [id number] [place] [address]- 4021 Apr, [facility] [place] [facility] [address] [id number] [place] [address]- 4783 Apr, [facility] [place] [facility] [address] [id number] [place] [address]- 2962 08 Apr, 2013 [facility] [place] [facility] [address] [id number] [place] [address]- 3961 07 Apr, 2013 [facility] [place] [facility] [address] [id number] [place] [address]- 6740 25 Mar, 2013 [facility] [place] [facility] [address] [id number] [place] [address]- 9730 23 Mar, 2013 [facility] [place] [facility] [address] [id number] [place] [address]- 2219 16 Mar, 2013 [facility] [place] [facility] [address] [id number] [place] [address]- 7143 Mar, [facility] [place] [facility] [address] [id number] [place] [address]- 3542 Mar, [facility] [address] [id number] [place] [address]- 9813 Mar, [facility] [address] [id number] [place] [address]- 3744 Feb, [facility] [place] [facility] [address] [id number] [place] [address]- 2138 Feb, [facility] [address] [id number] [place] [address]- 1773 Feb, [facility] [address] [id number] [place] [address]- 5025 Feb, [facility] [address] [id number] [place] [address]- 3999 Jan, [facility] [address] [id number] [place] [address]- 3083 Dec, [facility] [address] [id number] [place] [address]- 3652 November, [facility] [address] [id number] [place] [address] Sep, [facility] [address] [id number] [place] [address] Aug, [facility] [address] [id number] [address] Aug, [facility] [place] [facility] [address] [id number] [place] [address] Jul, [facility] [place] [facility] [address] [id number] [place] [address] Jul, [facility] [place] [facility] [address] [id number] [place] [address] Jun, [facility] [place] [facility] [address] [id number] [place] [address] Jun, [facility] [place] [facility] [address] [id number] [place] [address] Jun, [facility] [place] [facility] [address] [id number] [place] [address] Jun, [facility] [place] [facility] [address] [facility] [id number] [place] [address] Jun, [facility] [place] [facility] [address] [id number] [place] [address] 06 Jun, 2012 [facility] [place] [facility] [address] [id number] [place] [address] 30 May, 2012 [facility] [place] [facility] [address] [id number] [place] [address] 29 May, 2012 [facility] [place] [facility] [address] [place] [place] [id number] [place] [address] 28 May, 2012 [facility] [place] [facility] [address] [id number] [place] [address] 28 May, 2012 [facility] [place] [facility] [address] [facility] [id number] [place] [address] 27 May, 2012 [facility] [place] [facility] [address] [facility] [id number] [place] [address] 27 May, 2012 [facility] [place] [facility] [address] [facility] [id number] [place] [address] 15 May, 2012 [facility] [place] [facility] [address] [id number] [place] [address] 15 May, 2012 [facility] [place] [facility] [address] [id number] [place] [address] 14 May, 2012 [facility] [place] [facility] [address] [facility] [id number] [place] [address] 14 May, 2012 [facility] [place] [facility] [address] [facility] [id number] [place] [address] 12 May, 2012 [facility] [place] [facility] [address] [id number] [place] [address] May, [facility] [place] [facility] [address] [id number] [place] [address] May, [facility] [place] [facility] [address] [id number] [place] [address] May, [facility] [place] [facility] [address] [id number] [place] [address] May, [facility] [place] [facility] [address] [id number] [place] [address] Apr, [facility] [place] [facility] [address] [id number] [place] [address] Apr, [facility] [place] [facility] [address] [id number] [place] [address] Apr, [facility] [place] [facility] [address] [id number] [place] [address] Apr, [facility] [place] [facility] [address] [id number] [place] [address] Apr, [facility] [place] [facility] [address] [id number] [place] [address] Apr, [facility] [place] [facility] [address] [id number] [place] [address] Apr, [facility] [place] [facility] [address] [id number] [place] [address] Apr, [facility] [place] [facility] [address] [id number] [place] [address] Apr, [facility] [place] [facility] [address] [id number] [place] [address] Apr, [facility] [place] [facility] [address] [id number] [place] [address] Mar, [facility] [place] [facility] [address] [id number] [place] [address] 24 Mar, 2012 [facility] [id number] [address] Mar, [facility] [id number] [address] Mar, [facility] [id number] [address] Feb, [facility] [id number] [address] Feb, [facility] [id number] [address] Feb, [facility] [id number] [place] [address] Feb, [facility] [id number] [address] Feb, [facility] [id number] [address] November, [facility] [id number] [address] Aug, [facility] [address] [address] May, [facility] [id number] [address] May, [facility] [id number] [address] Apr, [facility] [id number] [address] Mar, IMMUNIZATIONS No Known Immunizations SOCIAL HISTORY Never Assessed REASON FOR VISIT PA for Piroxicam PLAN OF CARE VITAL SIGNS MEDICATIONS Unknown [...]
--- OUTSIDE RECORDS SUMMARY | 2018-09-03 15:02 | XMS REPORT ---
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 Name Role Phone GENEVIEVESANTOSH LEMAHANY Unavailable PROBLEMS Type Condition ICD9-CM Code IAX47-CR Code Onset Dates Condition Status SNOMED Code Problem Psoriasis L40.9 Active 4098735 Problem Rheumatoid arthritis involving multiple sites with positive rheumatoid factor M05.79 Active 789350895 Problem Vision loss, left eye H54.62 Active 60668498 Problem Primary insomnia F51.01 Active 4486836 Problem Other elevated white blood cell (WBC) count D72.828 Active 953296122 Problem Essential hypertension I10 Active 36131785 Problem Hematochezia K92.1 Active 279346434 Problem Type 2 diabetes mellitus with hyperglycemia, without long-term current use of insulin E11.65 Active 23178445 Problem Tobacco use Z72.0 Active 367369976 Problem Renal cyst, right N28.1 Active 24678133 Problem Idiopathic pulmonary fibrosis J84.112 Active 065692791 Problem Chronic obstructive pulmonary disease, unspecified J44.9 Active 24378458 Problem Lactic acidosis E87.2 Active 49261582 Problem Hyperlipidemia E78.5 Active 70806149 ALLERGIES No Information ENCOUNTERS Encounter Location Date Diagnosis [facility] [id number], [place] [address] Dec, [facility] [id number], [place] [address] November, [facility] [id number] [place] [address] 61861- 7235 November, Rheumatoid arthritis involving multiple sites with positive rheumatoid factor M05.79 [facility] [id number], [place] [address] November, Rheumatoid arthritis involving multiple sites with positive rheumatoid factor M05.79 [address] [address], [place] [address] November, Rheumatoid arthritis involving multiple sites with positive rheumatoid factor M05.79 [place] [id number] [place] [address] 63327- 0192 Oct, Rheumatoid arthritis involving multiple sites with positive rheumatoid factor M05.79 [place] [id number] [place] [address] 68013- 7397 Oct, [place] [id number] [place] [address] 58965- 5134 Oct, Rheumatoid arthritis involving multiple sites with positive rheumatoid factor M05.79 [place] [id number] [place] [address] 67631- 1343 Oct, Rheumatoid arthritis involving multiple sites with positive rheumatoid factor M05.79 ; Type 2 diabetes mellitus with hyperglycemia, without long-term current use of insulin E11.65 ; Hyperlipidemia E78.5 and Other elevated white blood cell (WBC) count D72.828 [address] [id number] [place] [address] 21193- 0316 Oct, Chronic obstructive pulmonary disease, unspecified J44.9 [address] [id number] [place] [address] 68264- 4826 Oct, Rheumatoid arthritis involving multiple sites with positive rheumatoid factor M05.79 [place] [id number] [place] [address] 04191- 9743 Oct, Type 2 diabetes mellitus with hyperglycemia, without long- term current use of insulin E11.65 [place] [address], [place] [address] Sep, [place] [id number] [place] [address] 09486- 8446 Sep, Rheumatoid arthritis involving multiple sites with positive rheumatoid factor M05.79 ; Visit for TB skin test Z11.1 and Psoriasis L40.9 [place] [id number] [place] [address] 86119- 4890 Sep, Type 2 diabetes mellitus with hyperglycemia, without long- term current use of insulin E11.65 ; Rheumatoid arthritis involving multiple sites with positive rheumatoid factor M05.79 ; Hyperlipidemia E78.5 ; Essential hypertension I10 ; Other elevated white blood cell (WBC) count D72.828 ; Primary insomnia F51.01 and Tobacco use Z72.0 [place] [id number] [place] [address] 14260- 6383 Sep, [place] [id number] [place] [address] 74733- 9091 Aug, Type 2 diabetes mellitus with hyperglycemia, without long- term current use of insulin E11.65 and Hyperlipidemia E78.5 [place] [id number] [place] [address] 61163- 8659 Jul, [place] [address] 92433- 7079 Jul, Rheumatoid arthritis involving multiple sites with positive rheumatoid factor M05.79 [place] [address] 62940- 9960 Jul, Rheumatoid arthritis involving multiple sites with positive rheumatoid factor M05.79 [place] [id number] [place] [address] 27208- 4038 Jun, Essential hypertension I10 and Hyperlipidemia E78.5 [place] [id number] [place] [address] 36187- 7999 Jun, Chronic obstructive pulmonary disease, unspecified J44.9 [facility] [id number] [place] [address] 44894- 2309 Jun, [address] [id number] [place] [address] 57182- 7519 May, Type 2 diabetes mellitus without complication E11.9 ; Rheumatoid arthritis involving multiple sites with positive rheumatoid factor M05.79 ; Psoriasis L40.9 and Essential hypertension I10 [facility] [id number] [place] [address] [id number] May, Dental examination Z01.20 and Dental caries K02.9 [facility] [address], [place] [address] 4094 Apr, Type 2 diabetes mellitus without complication E11.9 ; Type 2 diabetes mellitus with hyperglycemia, without long-term current use of insulin E11.65 ; Idiopathic pulmonary fibrosis J84.112 ; Essential hypertension I10 ; Tobacco use Z72.0 ; Rheumatoid arthritis involving multiple sites with positive rheumatoid factor M05.79 ; Hyperlipidemia E78.5 and Chronic obstructive pulmonary disease, unspecified J44.9 [facility] [address], [place] [address] 8204 Apr, Dental examination Z01.20 [facility] [address], [place] [address] Apr, [facility] [id number] [place] [address] 41663- 0358 Apr, [facility] [id number] [place] [address] 88160- [address] Apr, [facility] [id number] [place] [address] 35862- [address] Apr, [facility] [address], [place] [address] 7339 Apr, [facility] [address], [place] [address]- 4627 Apr, Type 2 diabetes mellitus without complication E11.9 and Essential hypertension I10 [facility] [address], [place] [address] 9[address] Mar, [facility] [address], [place] [address]- 6684 Mar, Rheumatoid arthritis involving multiple sites with positive rheumatoid factor M05.79 [facility] [address], [place] [address]- 1750 Mar, Type 2 diabetes mellitus without complication E11.9 ; Essential hypertension I10 [address]5 [facility] [address], [place] [address]- 3696 Mar, Rheumatoid arthritis involving multiple sites with positive rheumatoid factor M05.79 [facility] [address], [place] [address]- 5686 Mar, [facility] [id number] [place] [address] 51477- 3848 Mar, Hyperlipidemia E78.5 ; Essential hypertension I10 and Type 2 diabetes mellitus without complication E11.9 [facility] [id number] [place] [address] 52502- 5145 Feb, Rheumatoid arthritis involving multiple sites with positive rheumatoid factor M05.79 and Essential hypertension I10 [facility] [id number] [place] [address] 02633- 6367 Jan, Rheumatoid arthritis involving multiple sites with positive rheumatoid factor M05.79 [facility] [id number] [place] [address] 68148- 7448 Dec, Rheumatoid arthritis involving multiple sites with positive rheumatoid factor M05.79 [facility] [id number] [place] [address] 35958- 8514 Dec, [facility] [id number] [place] [address] 29061- 7814 November, Rheumatoid arthritis involving multiple sites with positive rheumatoid factor M05.[address] [facility] [address], [place] [address]- 8318 November, Hyperlipidemia E78.5 [facility] [id number] [place] [address] 75170- 2543 November, Type 2 diabetes mellitus without complication E11.9 [facility] [address], [place] [address]- 67[address] November, [facility] [id number] [place] [address] 68919- 1439 November, Rheumatoid arthritis involving multiple sites with positive rheumatoid factor M05.79 ; Hyperlipidemia E78.5 ; Type 2 diabetes mellitus without complication E11.9 ; Idiopathic pulmonary fibrosis J84.112 and Tobacco use Z72.0 [address] [place] [id number] [place] [address] 04182- 2507 Oct, Essential hypertension I10 and Rheumatoid arthritis involving multiple sites with positive rheumatoid factor M05.79 [place] [address] 63568- 1130 Sep, Rheumatoid arthritis involving multiple sites with positive rheumatoid factor M05.79 and Psoriasis L40.[address] 71590- 8556 Jul, Rheumatoid arthritis involving multiple sites with positive rheumatoid factor M05.79 [address] [address] 47669- 8715 Jul, Idiopathic pulmonary fibrosis J84.112 [address] [place] [id number] Jul, [place] [address] 61639- 4015 Jul, Idiopathic pulmonary fibrosis J84.112 [address] [place] [address] 23958- 6133 Jul, Idiopathic pulmonary fibrosis J84.112 and Hypoxia R09.02 [id number] [place] [address] 19211- 8602 Jul, Cough R05 and Idiopathic pulmonary fibrosis J84.112 [place] [id number] [place] [address] 80291- 2043 Apr, Type 2 diabetes mellitus without complication E11.9 ; Rheumatoid arthritis involving multiple sites with positive rheumatoid factor M05.79 ; Psoriasis L40.9 ; Hyperlipidemia E78.5 ; Idiopathic pulmonary fibrosis J84.112 and Essential hypertension I10 [address] [address] 25464- 1334 Feb, [facility] [address], [place] [address]- 8077 Feb, [facility] [id number] [place] [address] 38111- 3869 Dec, Right ankle gives way M25.371 [facility] [id number] [place] [address] 91167- 4807 November, [facility] [id number] [place] [address] 11104- 1915 November, Wrist pain, left M25.532 [facility] [id number] [place] [address] 93007- 9297 Sep, Psoriasis L40.9 [facility] [id number] [place] [address] 19154- 4889 Sep, COPD exacerbation J44.1 [facility] [id number] [place] [address] 44731- 1593 Aug, [facility] [id number] [place] [address] 84290- 5823 Aug, Rheumatoid arthritis involving multiple sites with positive rheumatoid factor M05.[address] [facility] [address], [place] [address]- 1050 Aug, [facility] [address] [place] [address] 40490- 7529 Aug, Psoriasis L40.9 ; Rheumatoid arthritis involving multiple sites with positive rheumatoid factor M05.79 and Essential hypertension I10 [facility] [address] [place] [address] 97745- 4220 Jul, [facility] [address] [place] [address] 90294- 8098 Jul, [facility] [address], [place] [address]- 2471 Jul, Type 2 diabetes mellitus without complication E11.9 ; Hyperlipidemia E78.5 and Rheumatoid arthritis involving multiple sites with positive rheumatoid factor M05.79 [facility] [id number] [place] [address] 93902- 0214 Jun, [facility] [id number] [place] [address] 22078- 9465 Apr, [facility] [id number] [place] [address] 63619- 6161 Mar, [facility] [address] 70874- 6462 Mar, [facility] [address] 21321- 6572 Mar, Rheumatoid arthritis 714.0 ; Other psoriasis 696.1 and Cellulitis, axillary fold 682.3 [address] [place] [id number] [place] [address] 32355- 6985 Jan, [facility] [id number] [place] [address] 00003- 4142 Dec, [facility] [id number] [place] [address] 49044- 9530 Dec, Other and unspecified hyperlipidemia 272.4 ; Other psoriasis 696.1 and Diabetes mellitus without mention of complication, type II or unspecified type, not stated as uncontrolled 250.00 [facility] [id number] [place] [address] 87928- 2592 Dec, [facility] [id number] [place] [address] 10228- 9212 November, [facility] [id number] [place] [address] 45867- 8319 Oct, [facility] [id number] [place] [address] 88217- 8734 Oct, [facility] [id number] [place] [address] 47856- 4241 Sep, [facility] [place] [facility] [address] [id number] [place] [address]- 0392 24 Sep, 2014 [facility] [place] [facility] [address] [id number] [place] [address]- 9325 20 Sep, 2014 [facility] [place] [facility] [address] [id number] [place] [address]- 8249 20 Sep, 2014 [facility] [place] [facility] [address] [id number] [place] [address]- 6595 13 Sep, 2014 [facility] [place] [facility] [address] [id number] [place] [address]- 9399 Sep, [facility] [place] [facility] [address] [id number] [place] [address]- 0177 Sep, [facility] [place] [facility] [address] [id number] [place] [address]- 8408 Sep, [facility] [place] [facility] [address] [id number] [place] [address]- 0246 Sep, [facility] [place] [facility] [address] [id number] [place] [address]- 4139 Sep, [facility] [place] [facility] [address] [id number] [place] [address]- 9342 Jul, [facility] [place] [facility] [address] [id number] [place] [address]- 7212 Jul, [facility] [place] [facility] [address] [id number] [place] [address]- 2064 Jul, [facility] [place] [facility] [address] [id number] [place] [address]- 5546 Jul, [facility] [place] [facility] [address] [id number] [place] [address]- 0600 15 Jul, 2014 [facility] [place] [facility] [address] [id number] [place] [address]- 9266 15 Jul, 2014 [facility] [place] [facility] [address] [id number] [place] [address]- 5016 Jul, [facility] [place] [facility] [address] [id number] [place] [address]- 9077 Jul, [facility] [place] [facility] [address] [id number] [place] [address]- 0110 Jun, [facility] [place] [facility] [address] [id number] [place] [address]- 4666 Jun, [facility] [place] [facility] [address] [id number] [place] [address]- 2461 Jun, [facility] [place] [facility] [address] [id number] [place] [address]- 3415 Jun, [facility] [place] [facility] [address] [id number] [place] [address]- 2613 Jun, [facility] [place] [facility] [address] [id number] [place] [address]- 6403 Jun, [facility] [place] [facility] [address] [id number] [place] [address]- 9989 Apr, [facility] [place] [facility] [address] [id number] [place] [address]- 4165 Apr, [facility] [place] [facility] [address] [id number] [place] [address]- 5514 Mar, [facility] [place] [facility] [address] [id number] [place] [address]- 5490 Mar, [facility] [place] [facility] [address] [id number] [place] [address]- 0290 Feb, [facility] [place] [facility] [address] [id number] [place] [address]- 7139 Feb, [facility] [place] [facility] [address] [id number] [place] [address]- 1350 Jan, [facility] [place] [facility] [address] [id number] [place] [address]- 5622 Jan, [facility] [place] [facility] [address] [id number] [place] [address]- 5799 Jan, [facility] [address] [id number] [place] [address]- 6548 Jan, [facility] [place] [facility] [address] [id number] [place] [address]- 0950 Jan, [facility] [place] [facility] [address] [id number] [place] [address]- 9486 Dec, [facility] [place] [facility] [address] [id number] [place] [address]- 6716 Dec, [facility] [place] [facility] [address] [id number] [place] [address]- 2864 Dec, [facility] [place] [facility] [address] [id number] [place] [address]- 7033 Dec, [facility] [place] [facility] [address] [id number] [place] [address]- 1473 November, [facility] [place] [facility] [address] [id number] [place] [address]- 7553 November, [facility] [place] [facility] [address] [id number] [place] [address]- 6484 Oct, [facility] [place] [facility] [address] [id number] [place] [address]- 8212 Oct, [facility] [place] [facility] [address] [id number] [place] [address]- 9455 Sep, [facility] [place] [facility] [address] [id number] [place] [address]- 4921 Sep, [facility] [place] [facility] [address] [id number] [place] [address]- 8506 Sep, [facility] [place] [facility] [address] [id number] [place] [address]- 2546 Sep, [facility] [place] [facility] [address] [id number] [place] [address]- 7367 Aug, [facility] [place] [facility] [address] [id number] [place] [address]- 9762 Aug, [facility] [place] [facility] [address] [id number] [place] [address]- 7286 Aug, [facility] [place] [facility] [address] [id number] [place] [address]- 0906 Aug, [facility] [place] [facility] [address] [id number] [place] [address]- 9260 Aug, [facility] [place] [facility] [address] [id number] [place] [address]- 9317 Aug, [facility] [place] [facility] [address] [id number] [place] [address]- 1655 Jul, [facility] [place] [facility] [address] [id number] [place] [address]- 1332 Jul, [facility] [place] [facility] [address] [id number] [place] [address]- 7573 Jul, [facility] [place] [facility] [address] [id number] [place] [address]- 9560 Jul, [facility] [place] [facility] [address] [id number] [place] [address]- 0519 Jul, [facility] [place] [facility] [address] [id number] [place] [address]- 7241 Jul, [facility] [place] [facility] [address] [id number], [place] [address]- 6557 Jul, [facility] [place] [facility] [address] [id number] [place] [address]- 3401 Jul, [facility] [place] [facility] [address] [id number] [place] [address]- 4585 Jun, [facility] [place] [facility] [address] [id number] [place] [address]- 0254 Jun, [facility] [place] [facility] [address] [id number] [place] [address]- 1629 Jun, [facility] [address] [id number] [place] [address]- 1274 Jun, [facility] [place] [facility] [address] [id number] [place] [address]- 7804 Jun, [facility] [place] [facility] [address] [id number] [place] [address]- 0734 Jun, [facility] [place] [facility] [address] [id number] [place] [address]- 0581 May, [facility] [place] [facility] [address] [id number] [place] [address]- 6372 May, [facility] [place] [facility] [address] [id number] [place] [address]- 7950 May, [facility] [place] [facility] [address] [id number] [place] [address]- 2549 May, [facility] [place] [facility] [address] [id number] [place] [address]- 2422 Apr, [facility] [place] [facility] [address] [id number] [place] [address]- 9767 Apr, [facility] [place] [facility] [address] [id number] [place] [address]- 8604 08 Apr, 2013 [facility] [place] [facility] [address] [id number] [place] [address]- 4267 07 Apr, 2013 [facility] [place] [facility] [address] [id number] [place] [address]- 3377 25 Mar, 2013 [facility] [place] [facility] [address] [id number] [place] [address]- 9017 23 Mar, 2013 [facility] [place] [facility] [address] [id number] [place] [address]- 3726 16 Mar, 2013 [facility] [place] [facility] [address] [id number] [place] [address] Mar, [facility] [place] [facility] [address] [id number] [place] [address] Mar, [facility] [address] [id number] [place] [address] Mar, [facility] [address] [id number] [place] [address] Feb, [facility] [place] [facility] [address] [id number] [place] [address] Feb, [facility] [address] [id number] [place] [address] Feb, [facility] [address] [id number] [place] [address] Feb, [facility] [address] [id number] [place] [address] Jan, [facility] [address] [id number] [place] [address] Dec, [facility] [address] [id number] [place] [address] November, [facility] [address] [id number] [place] [address] Sep, [facility] [address] [id number] [place] [address] Aug, [facility] [address] [id number], [place] [address] Aug, [facility] [place] [facility] [address] [id number] [place] [address] Jul, [facility] [place] [facility] [address] [id number] [place] [address] Jul, [facility] [place] [facility] [address] [id number] [place] [address]- [address] Jun, [facility] [place] [facility] [address] [id number], [place] [address] Jun, [facility] [place] [facility] [address] [id number] [place] [address] Jun, [facility] [place] [facility] [address] [id number] [place] [address] Jun, [facility] [place] [facility] [address] [facility] [id number] [place] [address]- [address] Jun, [facility] [place] [facility] [address] [id number] [place] [address] 06 Jun, 2012 [facility] [place] [facility] [address] [id number] [place] [address] 30 May, 2012 [facility] [place] [facility] [address] [id number] [place] [address] 29 May, 2012 [facility] [place] [facility] [address] [id number] [place] [address] 28 May, 2012 [facility] [place] [facility] [address] [id number] [place] [address] 28 May, 2012 [facility] [place] [facility] [address] [facility] [id number] [place] [address] 27 May, 2012 [facility] [place] [facility] [address] [facility] [id number] [place] [address] 27 May, 2012 [facility] [place] [facility] [address] [facility] [id number] [place] [address]- [address] 15 May, 2012 [facility] [place] [facility] [address] [id number] [place] [address]- [address] 15 May, 2012 [facility] [place] [facility] [address] [id number] [place] [address] 14 May, 2012 [facility] [place] [facility] [address] [facility] [id number] [place] [address] 14 May, 2012 [facility] [place] [facility] [address] [facility] [id number] [place] [address] 12 May, 2012 [facility] [place] [facility] [address] [id number] [place] [address] May, [facility] [place] [facility] [address] [id number] [place] [address] May, [facility] [place] [facility] [address] [id number] [place] [address] May, [facility] [place] [facility] [address] [id number] [place] [address] May, [facility] [place] [facility] [address] [id number] [place] [address] Apr, [facility] [place] [facility] [address] [id number] [place] [address] Apr, [facility] [place] [facility] [address] [id number] [place] [address] Apr, [facility] [place] [facility] [address] [id number] [place] [address] Apr, [facility] [place] [facility] [address] [id number] [place] [address] Apr, [facility] [place] [facility] [address] [id number] [place] [address] Apr, [facility] [place] [facility] [address] [id number] [place] [address] Apr, [facility] [place] [facility] [address] [id number] [place] [address] 1997 Apr, [facility] [place] [facility] [address] [id number] [place] [address] Apr, [facility] [place] [facility] [address] [id number] [place] [address] Apr, [facility] [place] [facility] [address] [id number] [place] [address] Mar, [facility] [place] [facility] [address] [id number] [place] [address] 24 Mar, 2012 [facility] [id number] [address] Mar, [facility] [id number] [address] Mar, [facility] [id number] [address] Feb, [facility] [id number] [address] Feb, [facility] [id number] [address] Feb, [facility] [id number] [place] [address] Feb, [facility] [id number] [address] Feb, [facility] [id number] [address] November, [facility] [id number] [address] Aug, [facility] [id number] [address] May, [facility] [id number] [address] May, [facility] [id number], [place] [address] Apr, [facility] [id number], [place] [address] Mar, IMMUNIZATIONS No Known Immunizations SOCIAL HISTORY Never Assessed REASON FOR VISIT Medication refill request PLAN OF CARE VITAL SIGNS MEDICATIONS Medication Instructions Dosage Frequency Start Date End Date Duration Status Piroxicam 20 mg Orally Once a day [...]
--- OUTSIDE RECORDS SUMMARY | 2018-09-03 15:03 | XMS REPORT ---
Author Author RILEY SCHRADER [facility] Address [address] [place] [address] Care Team Providers Care Health Care Attorney Name Role Phone RILEY SCHRADER Unavailable PROBLEMS Type Condition ICD9-CM Code XWH98-CI Code Onset Dates Condition Status SNOMED Code Problem Psoriasis L40.9 Active 0679473 Problem Rheumatoid arthritis involving multiple sites with positive rheumatoid factor M05.79 Active 724403455 Problem Vision loss, left eye H54.62 Active 21901417 Problem Primary insomnia F51.01 Active 7319427 Problem Other elevated white blood cell (WBC) count D72.828 Active 787549705 Problem Essential hypertension I10 Active 93499089 Problem Hematochezia K92.1 Active 219512285 Problem Type 2 diabetes mellitus with hyperglycemia, without long-term current use of insulin E11.65 Active 95197148 Problem Tobacco use Z72.0 Active 620030286 Problem Renal cyst, right N28.1 Active 92369332 Problem Idiopathic pulmonary fibrosis J84.112 Active 319435259 Problem Chronic obstructive pulmonary disease, unspecified J44.9 Active 06226535 Problem Lactic acidosis E87.2 Active 46100907 Problem Hyperlipidemia E78.5 Active 90004440 ALLERGIES No Information ENCOUNTERS Encounter Location Date Diagnosis [facility] [id number] [address] Dec, [facility] [id number] [address] November, [facility] [id number] [place] [address] 98032- 1842 November, Rheumatoid arthritis involving multiple sites with positive rheumatoid factor M05.79 [facility] [id number] [place] [address] 24123- 8425 November, Rheumatoid arthritis involving multiple sites with positive rheumatoid factor M05.79 [address] [facility] [address], [place] [address] 3208 November, Rheumatoid arthritis involving multiple sites with positive rheumatoid factor M05.79 [facility] [id number] [place] [address] 37326- 4877 Oct, Rheumatoid arthritis involving multiple sites with positive rheumatoid factor M05.79 [facility] [id number] [place] [address] 99114- 7330 Oct, [facility] [id number] [place] [address] 65304- 3718 Oct, Rheumatoid arthritis involving multiple sites with positive rheumatoid factor M05.79 [facility] [id number] [place] [address] 54775- 3014 Oct, Rheumatoid arthritis involving multiple sites with positive rheumatoid factor M05.79 ; Type 2 diabetes mellitus with hyperglycemia, without long-term current use of insulin E11.65 ; Hyperlipidemia E78.5 and Other elevated white blood cell (WBC) count D72.828 [facility] [id number] [place] [address] 34907- 6411 Oct, Chronic obstructive pulmonary disease, unspecified J44.9 [facility] [id number] [place] [address] 63831- 5052 Oct, Rheumatoid arthritis involving multiple sites with positive rheumatoid factor M05.79 [facility] [id number] [place] [address] 31997- 6601 Oct, Type 2 diabetes mellitus with hyperglycemia, without long- term current use of insulin E11.65 [facility] [id number] [place] [address] 93956- 2519 Sep, [facility] [id number] [place] [address] 83434- 7796 Sep, Rheumatoid arthritis involving multiple sites with positive rheumatoid factor M05.79 ; Visit for TB skin test Z11.1 and Psoriasis L40.9 [facility] [id number] [place] [address] 26189- 9382 Sep, Type 2 diabetes mellitus with hyperglycemia, without long- term current use of insulin E11.65 ; Rheumatoid arthritis involving multiple sites with positive rheumatoid factor M05.79 ; Hyperlipidemia E78.5 ; Essential hypertension I10 ; Other elevated white blood cell (WBC) count D72.828 ; Primary insomnia F51.01 and Tobacco use Z72.0 [place] [address] 93452- 7824 Sep, [facility] [address] 77600- 2967 Aug, Type 2 diabetes mellitus with hyperglycemia, without long- term current use of insulin E11.65 and Hyperlipidemia E78.5 [facility] [id number] [place] [address] 43965- 6465 Jul, [facility] [id number] [place] [address] 50139- 0183 Jul, Rheumatoid arthritis involving multiple sites with positive rheumatoid factor M05.79 [facility] [address] 29410- 0685 Jul, Rheumatoid arthritis involving multiple sites with positive rheumatoid factor M05.79 [facility] [id number] [place] [address] 42186- 8575 Jun, Essential hypertension I10 and Hyperlipidemia E78.5 [facility] [facility] [id number] [place] [address] 23077- 6934 Jun, Chronic obstructive pulmonary disease, unspecified J44.9 [place] [facility] [id number] [place] [address] 36650- 0562 Jun, [address] [address] 37545- 2118 May, Type 2 diabetes mellitus without complication E11.9 ; Rheumatoid arthritis involving multiple sites with positive rheumatoid factor M05.79 ; Psoriasis L40.9 and Essential hypertension I10 [facility] [id number] [place] [address] [id number] May, Dental examination Z01.20 and Dental caries K02.9 [facility] [address] [place] [address] 36460- 8803 Apr, Type 2 diabetes mellitus without complication E11.9 ; Type 2 diabetes mellitus with hyperglycemia, without long-term current use of insulin E11.65 ; Idiopathic pulmonary fibrosis J84.112 ; Essential hypertension I10 ; Tobacco use Z72.0 ; Rheumatoid arthritis involving multiple sites with positive rheumatoid factor M05.79 ; Hyperlipidemia E78.5 and Chronic obstructive pulmonary disease, unspecified J44.9 [facility] [address] [place] [address] 85770- 2590 Apr, Dental examination Z01.20 [facility] [id number] [place] [address] 97068- 1123 Apr, [facility] [id number] [place] [address] 20407- 6911 Apr, [facility] [id number] [place] [address] 82821- 6492 Apr, [facility] [id number] [place] [address] 30015- 2551 Apr, [facility] [id number] [place] [address] 18567- 5975 Apr, [facility] [address] [place] [address] 63901- 5503 Apr, Type 2 diabetes mellitus without complication E11.9 and Essential hypertension I10 [facility] [address], [place] [address]- 7679 Mar, [facility] [id number] [place] [address] 01118- 9920 Mar, Rheumatoid arthritis involving multiple sites with positive rheumatoid factor M05.79 [facility] [address] [place] [address] 60968- 5928 Mar, Type 2 diabetes mellitus without complication E11.9 ; Essential hypertension I10 and Hyperlipidemia E78.5 [facility] [address] [address] 1932 Mar, Rheumatoid arthritis involving multiple sites with positive rheumatoid factor M05.79 [facility] [address], [place] [address]- 2676 Mar, [facility] [id number] [place] [address] 93664- 2139 Mar, Hyperlipidemia E78.5 ; Essential hypertension I10 and Type 2 diabetes mellitus without complication E11.9 [facility] [id number] [place] [address] 30256- 4411 Feb, Rheumatoid arthritis involving multiple sites with positive rheumatoid factor M05.79 and Essential hypertension I10 [facility] [id number] [place] [address] 04691- 7191 Jan, Rheumatoid arthritis involving multiple sites with positive rheumatoid factor M05.79 [facility] [id number] [place] [address] 25645- 7574 Dec, Rheumatoid arthritis involving multiple sites with positive rheumatoid factor M05.79 [facility] [id number] [place] [address] 83247- 5750 Dec, [facility] [id number] [place] [address] 46120- 7565 November, Rheumatoid arthritis involving multiple sites with positive rheumatoid factor M05.79 and Psoriasis L40.9 [facility] [address] [place] [address] 97815- 3717 November, Hyperlipidemia E78.5 [facility] [id number] [place] [address] 38904- 6939 November, Type 2 diabetes mellitus without complication E11.9 [facility] [address] [place] [address] 66076- 5162 November, [facility] [id number] [place] [address] 32247- 8320 November, Rheumatoid arthritis involving multiple sites with positive rheumatoid factor M05.79 ; Hyperlipidemia E78.5 ; Type 2 diabetes mellitus without complication E11.9 ; Idiopathic pulmonary fibrosis J84.112 and Tobacco use Z72.0 [facility] [id number] [place] [address] 31707- 8926 Oct, Essential hypertension I10 and Rheumatoid arthritis involving multiple sites with positive rheumatoid factor M05.79 [address] [address] 464200- 9931 Sep, Rheumatoid arthritis involving multiple sites with positive rheumatoid factor M05.79 and Psoriasis L40.[address] 12166- 9771 Jul, Rheumatoid arthritis involving multiple sites with positive rheumatoid factor M05.79 [address] [address] 38072- 9189 Jul, Idiopathic pulmonary fibrosis J84.112 [place] [address] [id number] Jul, [place] [address] 92575- 9443 Jul, Idiopathic pulmonary fibrosis J84.112 [place] [facility] [id number] [place] [address] 42373- 6039 Jul, Idiopathic pulmonary fibrosis J84.112 and Hypoxia R09.02 [place] [id number] [place] [address] 84928- 1919 Jul, Cough R05 and Idiopathic pulmonary fibrosis J84.112 [place] [id number] [place] [address] 53126- 4012 Apr, Type 2 diabetes mellitus without complication E11.9 ; Rheumatoid arthritis involving multiple sites with positive rheumatoid factor M05.79 ; Psoriasis L40.9 ; Hyperlipidemia E78.5 ; Idiopathic pulmonary fibrosis J84.112 and Essential hypertension I10 [address] [address] 77995- 1725 Feb, [facility] [address] [address]- 3410 Feb, [facility] [id number] [place] [address] 68324- 0770 Dec, Right ankle gives way M25.371 [facility] [id number] [place] [address] 28739- 4576 November, [facility] [id number] [place] [address] 90287- 8231 November, Wrist pain, left M25.532 [address] [id number] [place] [address] 30536- 1626 Sep, Psoriasis L40.9 [facility] [id number] [place] [address] 18053- 6471 Sep, COPD exacerbation J44.1 [place] [facility] [id number] [place] [address] 24740- 4752 Aug, [facility] [id number] [place] [address] 33142- 9898 Aug, Rheumatoid arthritis involving multiple sites with positive rheumatoid factor M05.79 and Hyperlipidemia E78.5 [facility] [id number], [place] [address]- 0377 Aug, [facility] [id number] [place] [address] 34707- 7656 Aug, Psoriasis L40.9 ; Rheumatoid arthritis involving multiple sites with positive rheumatoid factor M05.79 and Essential hypertension I10 [facility] [address] [place] [address] 77885- 6681 Jul, [facility] [id number] [place] [address] 20570- 8961 Jul, [facility] [address], [place] [address]- 9183 Jul, Type 2 diabetes mellitus without complication E11.9 ; Hyperlipidemia E78.5 and Rheumatoid arthritis involving multiple sites with positive rheumatoid factor M05.79 [facility] [id number] [place] [address] 70899- 1251 Jun, [facility] [id number] [place] [address] 800405- 6842 Apr, [facility] [id number] [place] [address] 04689- 6850 Mar, [facility] [id number] [place] [address] 99882- 8431 Mar, [facility] [id number] [place] [address] 04710- 0259 Mar, Rheumatoid arthritis 714.0 ; Other psoriasis 696.1 and Cellulitis, axillary fold 682.3 [place] [id number] [place] [address] 95190- 7045 Jan, [facility] [id number] [place] [address] 14487- 4789 Dec, [facility] [id number] [place] [address] 96862- 6514 Dec, Other and unspecified hyperlipidemia 272.4 ; Other psoriasis 696.1 and Diabetes mellitus without mention of complication, type II or unspecified type, not stated as uncontrolled 250.00 [address] [place] [address] [place] [address] 26239- 8249 Dec, [facility] [id number] [place] [address] 07910- 6735 November, [facility] [id number] [place] [address] 75982- 7754 Oct, [facility] [id number] [place] [address] 07325- 6703 Oct, [facility] [id number] [place] [address] 81959- 6496 Sep, [facility] [place] [facility] [address] [id number] [place] [address]- 9966 24 Sep, 2014 [facility] [place] [facility] [address] [id number] [place] [address]- 4461 20 Sep, 2014 [facility] [place] [facility] [address] [id number] [place] [address]- 2156 20 Sep, 2014 [facility] [place] [facility] [address] [id number] [place] [address]- 4956 13 Sep, 2014 [facility] [place] [facility] [address] [id number] [place] [address]- 1410 Sep, [facility] [place] [facility] [address] [id number] [place] [address]- 0862 Sep, [facility] [place] [facility] [address] [id number] [place] [address]- 9718 Sep, [facility] [place] [facility] [address] [id number] [place] [address]- 8199 Sep, [facility] [place] [facility] [address] [id number] [place] [address]- 6596 Sep, [facility] [place] [facility] [address] [id number] [place] [address]- 3333 Jul, [facility] [place] [facility] [address] [id number] [place] [address]- 9273 Jul, [facility] [place] [facility] [address] [id number] [place] [address]- 3677 16 Jul, 2014 [facility] [place] [facility] [address] [id number] [place] [address]- 3022 16 Jul, 2014 [facility] [place] [facility] [address] [id number] [place] [address]- 1380 15 Jul, 2014 [facility] [place] [facility] [address] [id number] [place] [address]- 9526 15 Jul, 2014 [facility] [place] [facility] [address] [id number] [place] [address]- 0363 Jul, [facility] [place] [facility] [address] [id number] [place] [address]- 8763 Jul, [facility] [place] [facility] [address] [id number] [place] [address]- 9791 Jun, [facility] [place] [facility] [address] [id number] [place] [address]- 4364 Jun, [facility] [place] [facility] [address] [id number] [place] [address]- 2816 Jun, [facility] [place] [facility] [address] [id number] [place] 8852 Jun, [facility] [place] [facility] [address] [id number] [place] [address]- 3770 Jun, [facility] [place] [facility] [address] [id number] [place] [address]- 1820 Jun, [facility] [place] [facility] [address] [id number] [place] [address]- 0253 Apr, [facility] [place] [facility] [address] [id number] [place] [address]- 3368 Apr, [facility] [place] [facility] [address] [id number] [place] [address]- 7550 Mar, [facility] [place] [facility] [address] [id number] [address]- 7812 Mar, [facility] [place] [facility] [address] [id number] [address]- 0684 Feb, [facility] [place] [facility] [address] [id number] [place] [address]- 0142 Feb, [facility] [place] [facility] [address] [id number] [place] [address]- 3838 Jan, [facility] [place] [facility] [address] [id number] [place] [address]- 5276 Jan, [facility] [place] [facility] [address] [id number] [place] [address]- 3052 Jan, [facility] [place] [facility] [address] [id number] [place] [address]- 4869 Jan, [facility] [place] [facility] [address] [id number] [place] [address]- 4870 Jan, [facility] [place] [facility] [address] [id number] [place] [address]- 2520 Dec, [facility] [place] [facility] [address] [id number] [place] [address]- 2328 Dec, [facility] [place] [facility] [address] [id number] [place] [address]- 9310 Dec, [facility] [place] [facility] [address] [id number] [place] [address]- 9878 Dec, [facility] [place] [facility] [address] [id number] [place] [address]- 8021 November, [facility] [place] [facility] [address] [id number] [place] [address]- 1382 November, [facility] [place] [facility] [address] [id number] [place] [address]- 9134 Oct, [facility] [place] [facility] [address] [id number] [place] [address]- 9335 Oct, [facility] [place] [facility] [address] [id number] [place] [address]- 0873 Sep, [facility] [place] [facility] [address] [id number] [place] [address]- 1694 Sep, [facility] [place] [facility] [address] [id number] [place] [address]- 2739 Sep, [facility] [place] [facility] [address] [id number] [place] [address]- 5246 Sep, [facility] [place] [facility] [address] [id number] [place] [address]- 7893 Aug, [facility] [place] [facility] [address] [id number] [place] [address]- 1306 Aug, [facility] [place] [facility] [address] [id number] [place] [address]- 8920 Aug, [facility] [place] [facility] [address] [id number] [place] [address]- 8172 Aug, [facility] [place] [facility] [address] [id number] [place] [address]- 6784 Aug, [facility] [place] [facility] [address] [id number] [place] [address]- 3108 Aug, [facility] [place] [facility] [address] [id number] [place] [address]- 2420 Jul, [facility] [place] [facility] [address] [id number] [place] [address]- 1917 Jul, [facility] [place] [facility] [address] [id number] [place] [address]- 4127 Jul, [facility] [place] [facility] [address] [id number] [place] [address]- 8869 Jul, [facility] [place] [facility] [address] [id number] [place] [address]- 2913 Jul, [facility] [place] [facility] [address] [id number] [place] [address]- 3850 Jul, [facility] [place] [facility] [address] [id number], [place] [address]- 4855 Jul, [facility] [place] [facility] [address] [id number] [place] [address]- 3406 Jul, [facility] [place] [facility] [address] [id number] [place] [address]- 8569 Jun, [facility] [place] [facility] [address] [id number] [place] [address]- 4988 Jun, [facility] [place] [facility] [address] [id number] [place] [address]- 7131 Jun, [facility] [address] [id number] [place] [address]- 3385 Jun, [facility] [place] [facility] [address] [id number] [place] [address]- 7873 Jun, [facility] [place] [facility] [address] [id number] [place] [address]- 3554 Jun, [facility] [place] [facility] [address] [id number] [place] [address]- 3099 May, [facility] [place] [facility] [address] [id number] [place] [address]- 3773 May, [facility] [place] [facility] [address] [id number] [place] [address]- 4661 May, [facility] [place] [facility] [address] [id number] [place] [address]- 9042 May, [facility] [place] [facility] [address] [id number] [place] [address]- 6119 Apr, [facility] [place] [facility] [address] [id number] [place] [address]- 6158 Apr, [facility] [place] [facility] [address] [facility] [id number] [place] [address]- 5249 08 Apr, 2013 [facility] [place] [facility] [address] [id number] [place] [address]- 3965 07 Apr, 2013 [facility] [place] [facility] [address] [id number] [place] [address]- 9136 25 Mar, 2013 [facility] [place] [facility] [address] [id number] [place] [address]- 2504 23 Mar, 2013 [facility] [place] [facility] [address] [id number] [place] [address]- 2051 16 Mar, 2013 [facility] [place] [facility] [address] [id number] [place] [address]- 7842 12 Mar, 2013 [facility] [place] [facility] [address] [id number] [place] [address]- 7791 Mar, [facility] [address] [id number] [place] [address] Mar, [facility] [place] [facility] [address] [id number] [place] [address] Feb, [facility] [place] [facility] [address] [id number] [place] [address] Feb, [facility] [address] [id number] [place] [address] Feb, [facility] [address] [id number] [place] [address] Feb, [facility] [address] [id number] [place] [address] Jan, [facility] [address] [id number] [place] [address] Dec, [facility] [address] [id number] [place] [address] November, [facility] [address] [id number] [place] [address] Sep, [facility] [address] [id number] [place] [address] Aug, [facility] [address] [id number] [place] [address] Aug, [facility] [place] [facility] [address] [id number] [place] [address] Jul, [facility] [place] [facility] [address] [id number] [place] [address] Jul, [facility] [place] [facility] [address] [id number] [place] [address] Jun, [facility] [place] [facility] [address] [id number] [place] [address] Jun, [facility] [place] [facility] [address] [id number] [place] [address] Jun, [facility] [place] [facility] [address] [id number] [place] [address] Jun, [facility] [place] [facility] [address] [id number] [place] [address] Jun, [facility] [place] [facility] [address] [id number] [place] [address] Jun, [facility] [place] [facility] [address] [id number] [place] [address] 30 May, 2012 [facility] [place] [facility] [address] [id number] [place] [address] 29 May, 2012 [facility] [place] [facility] [address] [id number] [place] [address] 28 May, 2012 [facility] [place] [facility] [address] [id number] [place] [address] 28 May, 2012 [facility] [place] [facility] [address] [id number] [place] [address] May, [facility] [place] [facility] [address] [id number] [place] [address] May, [facility] [place] [facility] [address] [id number] [place] [address] 15 May, 2012 [facility] [place] [facility] [address] [id number] [place] [address] 15 May, 2012 [facility] [place] [facility] [address] [id number] [place] [address] 14 May, 2012 [facility] [place] [facility] [address] [id number] [place] [address] 14 May, 2012 [facility] [place] [facility] [address] [id number] [place] [address] 12 May, 2012 [facility] [place] [facility] [address] [id number] [place] [address] May, [facility] [place] [facility] [address] [id number] [place] [address] May, [facility] [place] [facility] [address] [id number] [place] [address] May, [facility] [place] [facility] [address] [id number] [place] [address] May, [facility] [place] [facility] [address] [id number] [place] [address] Apr, [facility] [place] [facility] [address] [id number] [place] [address] Apr, [facility] [place] [facility] [address] [id number] [place] [address] Apr, [facility] [place] [facility] [address] [id number] [place] [address] Apr, [facility] [place] [facility] [address] [id number] [place] [address] Apr, [facility] [place] [facility] [address] [id number] [place] [address] Apr, [facility] [place] [facility] [address] [id number] [place] [address] Apr, [facility] [place] [facility] [address] [id number] [place] [address] Apr, [facility] [place] [facility] [address] [id number] [place] [address] Apr, [facility] [place] [facility] [address] [id number] [place] [address] Apr, [facility] [place] [facility] [address] [id number] [place] [address] Mar, [facility] [place] [facility] [address] [id number] [place] [address] 24 Mar, 2012 [facility] [address] [id number] [address] Mar, [facility] [id number] [address] Mar, [facility] [address] [id number] [address] Feb, [facility] [address] [facility] [id number] [address] Feb, [facility] [address] [facility] [id number] [address] Feb, [facility] [id number] [address] Feb, [facility] [id number], [place] [address] Feb, [facility] [id number], [place] [address] November, [facility] [id number] [address] Aug, [facility] [address] [id number], [place] [address] May, [facility] [address] [id number] [address] May, [facility] [address] [id number], [place] [address] Apr, [facility] [address] [id number] [address] Mar, IMMUNIZATIONS No Known Immunizations SOCIAL HISTORY [...] Hospitalization History Resp distress with hypoxia, pulmonary fibrosis-[facility] 08/03/16 Hospitalization History Shortness of breath 04/2017
--- OUTSIDE RECORDS SUMMARY | 2018-09-03 15:12 | XMS REPORT | Continuity of Care Document ---
Author Author [facility] Address Unknown Phone Unavailable Allergies Active Description Code Type Severity Reaction Onset Reported/Identified Relationship to Patient Clinical Status Yes No Known Drug Allergies [id number] Drug Allergy Unknown N/A 09/10/2010 Yes Naprosyn 500 mg Tablet Drug Allergy 03/12/2012 Yes Naprosyn 500 mg Tablet Drug Allergy N/A N/A 03/12/2012 Yes Celebrex 200 mg capsule Drug Allergy N/A N/A 08/15/2013 Medications There is no data. Problems Date Dx Coded Attending Type Code Diagnosis Diagnosed By 04/16/2009 ANGELES MCKEON MD 278.02 Overweight 04/16/2009 ANGELES MCKEON MD 305.1 NICOTINE DEPENDENCE 04/16/2009 ANGELES MCKEON MD 724.2 lower back pain 04/16/2009 ANGELES MCKEON MD 278.02 Overweight 04/16/2009 ANGELES MCKEON MD 305.1 NICOTINE DEPENDENCE 04/16/2009 ANGELES MCKEON MD 724.2 lower back pain 04/16/2009 278.02 Overweight 04/16/2009 305.1 NICOTINE DEPENDENCE 04/16/2009 724.2 lower back pain 04/16/2009 JONO URBINA APRN S 278.02 Overweight 04/16/2009 JONO URBINA APRN S 305.1 NICOTINE DEPENDENCE 04/16/2009 HANDY URBINA APRNNDA S 724.2 lower back pain 04/16/2009 278.02 Overweight 04/16/2009 305.1 NICOTINE DEPENDENCE 04/16/2009 724.2 lower back pain 04/16/2009 HANDY URBINA APRNNDA S 278.02 Overweight 04/16/2009 HADNY URBINA APRNNDA S 305.1 NICOTINE DEPENDENCE 04/16/2009 HANDY URBINA APRNNDA S 724.2 lower back pain 04/16/2009 278.02 Overweight 04/16/2009 305.1 NICOTINE DEPENDENCE 04/16/2009 724.2 lower back pain 04/16/2009 JUSTEN DEWEY MD M 278.02 Overweight 04/16/2009 JUSTEN DEWEY MD M 305.1 NICOTINE DEPENDENCE 04/16/2009 JUSTEN DEWEY MD M 724.2 lower back pain 04/16/2009 JUSTEN DEWEY MD M 278.02 Overweight 04/16/2009 JUSTEN DEWEY MD 305.1 NICOTINE DEPENDENCE 04/16/2009 JUSTEN DEWEY MD 724.2 lower back pain 04/16/2009 JC DO, BRANDI K 278.02 Overweight 04/16/2009 JC DO, BRANDI K 305.1 NICOTINE DEPENDENCE 04/16/2009 JC DO, BRANDI K 724.2 lower back pain 04/16/2009 HANDY URBINA APRNNDA S 278.02 Overweight 04/16/2009 HANDY URBINA APRNNDA S 305.1 NICOTINE DEPENDENCE 04/16/2009 CARLITOS CASSIDY JONO S 724.2 lower back pain 04/16/2009 JUSTEN DEWEY MD 278.02 Overweight 04/16/2009 JUSTEN DEWEY MD 305.1 NICOTINE DEPENDENCE 04/16/2009 JUSTEN DEWEY MD 724.2 lower back pain 04/16/2009 JOSE F VALLEJO MD N 278.02 Overweight 04/16/2009 JOSE F VALLEJO MD N 305.1 NICOTINE DEPENDENCE 04/16/2009 JOSE F VALLEJO MD N 724.2 lower back pain 04/16/2009 JOSE F VALLEJO MD N 278.02 Overweight 04/16/2009 JOSE F VALLEJO MD N 305.1 NICOTINE DEPENDENCE 04/16/2009 JOSE F VALLEJO MD N 724.2 lower back pain 04/16/2009 ANGELES MCKEON MD 278.02 Overweight 04/16/2009 ANGELES MCKEON MD 305.1 NICOTINE DEPENDENCE 04/16/2009 ANGELES MCKEON MD 724.2 lower back pain 04/16/2009 JOSE F VALLEJO MD N 278.02 Overweight 04/16/2009 JOSE F VALLEJO MD N 305.1 NICOTINE DEPENDENCE 04/16/2009 JOSE F VALLEJO MD N 724.2 lower back pain 04/16/2009 JOSE F VALLEJO MD N 278.02 Overweight 04/16/2009 JOSE F VALLEJO MD N 305.1 NICOTINE DEPENDENCE 04/16/2009 JOSE F VALLEJO MD N 724.2 lower back pain 04/16/2009 MANISHA MENJIVAR APRN 278.02 Overweight 04/16/2009 MANISHA MENJIVAR APRN D 305.1 NICOTINE DEPENDENCE 04/16/2009 MANISHA MENJIVAR APRN 724.2 lower back pain 04/16/2009 GENEVIEVE MARIA JOSE F N 278.02 Overweight 04/16/2009 JOSE F VALLEJO MD N 305.1 NICOTINE DEPENDENCE 04/16/2009 JOSE F VALLEJO MD N 724.2 lower back pain 04/16/2009 JOSE F VALLEJO MD N 278.02 Overweight 04/16/2009 JOSE F VALLEJO MD N 305.1 NICOTINE DEPENDENCE 04/16/2009 JOSE F VALLEJO MD N 724.2 lower back pain 04/16/2009 JOSE F VALLEJO MD N 278.02 Overweight 04/16/2009 GENEVIEVE MARIA JOSE F N 305.1 NICOTINE DEPENDENCE 04/16/2009 GENEVIEVE MARIA JOSE F N 724.2 lower back pain 04/16/2009 GENEVIEVE MARIA JOSE F N 278.02 Overweight 04/16/2009 GENEVIEVE MARIA JOSE F N 305.1 NICOTINE DEPENDENCE 04/16/2009 JOSE F VALLEJO MD N 724.2 lower back pain 05/28/2010 ANGELES MCKEON MD 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 05/28/2010 ANGELES MCKEON MD 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 05/28/2010 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 05/28/2010 JONO URBINA APRN 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 05/28/2010 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 05/28/2010 JONO URBINA APRN 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 05/28/2010 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 05/28/2010 JUSTEN DEWEY MD 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 05/28/2010 JUSTEN DEWEY MD 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 05/28/2010 BRANDI JC DO 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 05/28/2010 JONO URBINA APRN S 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 05/28/2010 JUSTEN DEWEY MD 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 05/28/2010 JOSE F VALLEJO MD N 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 05/28/2010 JOSE F VALLEJO MD N 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 05/28/2010 ANGELES MCKEON MD 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 05/28/2010 JOSE F VALLEJO MD N 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 05/28/2010 JOSE F VALLEJO MD N 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 05/28/2010 MANISHA MENJIVAR APRN 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 05/28/2010 JOSE F VALLEJO MD N 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 05/28/2010 JOSE F VALLEJO MD N 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 05/28/2010 JOSE F VALLEJO MD N 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 05/28/2010 JOSE F VALLEJO MD N 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 06/03/2010 ANGELES MCKEON MD 724.5 BACKACHE 06/03/2010 ANGELES MCKEON MD 724.5 BACKACHE 06/03/2010 724.5 BACKACHE 06/03/2010 JONO URBINA APRN S 724.5 BACKACHE 06/03/2010 724.5 BACKACHE 06/03/2010 JONO URBINA APRN S 724.5 BACKACHE 06/03/2010 724.5 BACKACHE 06/03/2010 JUSTEN DEWEY MD 724.5 BACKACHE 06/03/2010 JUSTEN DEWEY MD 724.5 BACKACHE 06/03/2010 BRANDI JC DO 724.5 BACKACHE 06/03/2010 JONO URBINA APRN S 724.5 BACKACHE 06/03/2010 JUSTEN DEWEY MD 724.5 BACKACHE 06/03/2010 JOSE F VALLEJO MD N 724.5 BACKACHE 06/03/2010 JOSE F VALLEJO MD 724.5 BACKACHE 06/03/2010 ANGELES MCKEON MD 724.5 BACKACHE 06/03/2010 GENEVIEVE MARIA, JOSE F Elliott 724.5 BACKACHE 06/03/2010 GENEVIEVE MARIA, JOSE F N 724.5 BACKACHE 06/03/2010 OTTO CASSIDY, MANISHA Heard 724.5 BACKACHE 06/03/2010 GENEVIEVE MARIA, JOSE F N 724.5 BACKACHE 06/03/2010 JOSE F VALLEJO MD 724.5 BACKACHE 06/03/2010 JOSE F VALLEJO MD 724.5 BACKACHE 06/03/2010 GENEVIEVE MARIA, JOSE F Elliott 724.5 BACKACHE 09/10/2010 ANGELES MCKEON MD 375.56 TEAR DUCT OCCLUSION - LEFT EYE 09/10/2010 ANGELES MCKEON MD 375.56 TEAR DUCT OCCLUSION - LEFT EYE 09/10/2010 375.56 TEAR DUCT OCCLUSION - LEFT EYE 09/10/2010 JONO URBINA APRN S 375.56 TEAR DUCT OCCLUSION - LEFT EYE 09/10/2010 375.56 TEAR DUCT OCCLUSION - LEFT EYE 09/10/2010 JONO URBINA APRN S 375.56 TEAR DUCT OCCLUSION - LEFT EYE 09/10/2010 375.56 TEAR DUCT OCCLUSION - LEFT EYE 09/10/2010 JUSTEN DEWEY MD 375.56 TEAR DUCT OCCLUSION - LEFT EYE 09/10/2010 JUSTEN DEWEY MD 375.56 TEAR DUCT OCCLUSION - LEFT EYE 09/10/2010 BRANDI JC DO 375.56 TEAR DUCT OCCLUSION - LEFT EYE 09/10/2010 JONO URBINA APRN S 375.56 TEAR DUCT OCCLUSION - LEFT EYE 09/10/2010 JUSTEN DEWEY MD 375.56 TEAR DUCT OCCLUSION - LEFT EYE 09/10/2010 JOSE F VALLEJO MD 375.56 TEAR DUCT OCCLUSION - LEFT EYE 09/10/2010 JOSE F VALLEJO MD 375.56 TEAR DUCT OCCLUSION - LEFT EYE 09/10/2010 ANGELES MCKEON MD 375.56 TEAR DUCT OCCLUSION - LEFT EYE 09/10/2010 JOSE F VALLEJO MD 375.56 TEAR DUCT OCCLUSION - LEFT EYE 09/10/2010 JOSE F VALLEJO MD 375.56 TEAR DUCT OCCLUSION - LEFT EYE 09/10/2010 MANISHA MENJIVAR APRN 375.56 TEAR DUCT OCCLUSION - LEFT EYE 09/10/2010 JOSE F VALLEJO MD 375.56 TEAR DUCT OCCLUSION - LEFT EYE 09/10/2010 JOSE F VALLEJO MD 375.56 TEAR DUCT OCCLUSION - LEFT EYE 09/10/2010 JOSE F VALLEJO MD 375.56 TEAR DUCT OCCLUSION - LEFT EYE 09/10/2010 JOSE F VALLEJO MD 375.56 TEAR DUCT OCCLUSION - LEFT EYE 09/10/2010 Ot 682.0 CELLULITIS OF FACE 09/10/2010 Ot 784.2 SWELLING IN HEAD NECK 01/13/2012 Ot 719.45 JOINT PAIN- PELVIS 01/13/2012 Ot 719.46 JOINT PAIN-L /LEG 03/12/2012 ANGELES MCKEON MD 719.40 Arthraigia Unspec 03/12/2012 ANGELES MCKEON MD 786.09 RESPIRATORY ABNORMALITY OTHER 03/12/2012 ANGELES MCKEON MD 719.40 Arthraigia Unspec 03/12/2012 ANGELES MCKEON MD 786.09 RESPIRATORY ABNORMALITY OTHER 03/12/2012 719.40 Arthraigia Unspec 03/12/2012 786.09 RESPIRATORY ABNORMALITY OTHER 03/12/2012 JONO URBINA APRN S 719.40 Arthraigia Unspec 03/12/2012 JONO URBINA APRN S 786.09 RESPIRATORY ABNORMALITY OTHER 03/12/2012 719.40 Arthraigia Unspec 03/12/2012 786.09 RESPIRATORY ABNORMALITY OTHER 03/12/2012 JOON URBINA APRN S 719.40 Arthraigia Unspec 03/12/2012 JONO URIBNA APRN S 786.09 RESPIRATORY ABNORMALITY OTHER 03/12/2012 719.40 Arthraigia Unspec 03/12/2012 786.09 RESPIRATORY ABNORMALITY OTHER 03/12/2012 JUSTEN DEWEY MD 719.40 Arthraigia Unspec 03/12/2012 JUSTEN DEWEY MD 786.09 RESPIRATORY ABNORMALITY OTHER 03/12/2012 JUSTEN DEWEY MD 719.40 Arthraigia Unspec 03/12/2012 JUSTEN DEWEY MD 786.09 RESPIRATORY ABNORMALITY OTHER 03/12/2012 BRANDI JC DO K 719.40 Arthraigia Unspec 03/12/2012 HOSEA MICHAUD BRANDI K 786.09 RESPIRATORY ABNORMALITY OTHER 03/12/2012 JONO URBINA APRN 719.40 Arthraigia Unspec 03/12/2012 JONO URBINA APRN 786.09 RESPIRATORY ABNORMALITY OTHER 03/12/2012 JUSTEN DEWEY MD 719.40 Arthraigia Unspec 03/12/2012 JUSTEN DEWEY MD 786.09 RESPIRATORY ABNORMALITY OTHER 03/12/2012 JOSE F VALLEJO MD N 719.40 Arthraigia Unspec 03/12/2012 JOSE F VALLEJO MD N 786.09 RESPIRATORY ABNORMALITY OTHER 03/12/2012 JOSE F VALLEJO MD 719.40 Arthraigia Unspec 03/12/2012 JOSE F VALLEJO MD N 786.09 RESPIRATORY ABNORMALITY OTHER 03/12/2012 ANGELES MCKEON MD 719.40 Arthraigia Unspec 03/12/2012 ANGELES MCKEON MD 786.09 RESPIRATORY ABNORMALITY OTHER 03/12/2012 JOSE F VALLEJO MD N 719.40 Arthraigia Unspec 03/12/2012 JOSE F VALLEJO MD N 786.09 RESPIRATORY ABNORMALITY OTHER 03/12/2012 JOSE F VALLEJO MD N 719.40 Arthraigia Unspec 03/12/2012 JOSE F VALLEJO MD N 786.09 RESPIRATORY ABNORMALITY OTHER 03/12/2012 MANISHA MENJIVAR APRN 719.40 Arthraigia Unspec 03/12/2012 MANISHA MENJIVAR APRN 786.09 RESPIRATORY ABNORMALITY OTHER 03/12/2012 JOSE F VALLEJO MD N 719.40 Arthraigia Unspec 03/12/2012 JOSE F VALLEJO MD N 786.09 RESPIRATORY ABNORMALITY OTHER 03/12/2012 JOSE F VALLEJO MD N 719.40 Arthraigia Unspec 03/12/2012 JOSE F VALLEJO MD N 786.09 RESPIRATORY ABNORMALITY OTHER 03/12/2012 JOSE F VALLEJO MD N 719.40 Arthraigia Unspec 03/12/2012 JOSE F VALLEJO MD N 786.09 RESPIRATORY ABNORMALITY OTHER 03/12/2012 JOSE F VALLEJO MD N 719.40 Arthraigia Unspec 03/12/2012 GENEVIEVE MARIA, JOSE F N 786.09 RESPIRATORY ABNORMALITY OTHER 03/26/2012 ANGELES MCKEON MD 300.4 DYSTHYMIC DISORDER 03/26/2012 ANGELES MCKEON MD 525.9 UNSPECIFIED DISORDER OF THE TEETH AND SUPPORTING STRUCTURES 03/26/2012 ANGELES MCKEON MD 710.0 SYSTEMIC LUPUS ERYTHEMATOSUS 03/26/2012 ANGELES MCKEON MD 300.4 DYSTHYMIC DISORDER 03/26/2012 ANGELES MCKEON MD 525.9 UNSPECIFIED DISORDER OF THE TEETH AND SUPPORTING STRUCTURES 03/26/2012 ANGELES MCKEON MD 710.0 Systemic Lupus Erythematosus 03/26/2012 300.4 DYSTHYMIC DISORDER 03/26/2012 525.9 UNSPECIFIED DISORDER OF THE TEETH AND SUPPORTING STRUCTURES 03/26/2012 710.0 Systemic Lupus Erythematosus 03/26/2012 JONO URBINA APRN 300.4 DYSTHYMIC DISORDER 03/26/2012 JONO URBINA APRN 525.9 UNSPECIFIED DISORDER OF THE TEETH AND SUPPORTING STRUCTURES 03/26/2012 JONO URBINA APRN 710.0 Systemic Lupus Erythematosus 03/26/2012 300.4 DYSTHYMIC DISORDER 03/26/2012 525.9 UNSPECIFIED DISORDER OF THE TEETH AND SUPPORTING STRUCTURES 03/26/2012 710.0 Systemic Lupus Erythematosus 03/26/2012 JONO URBINA APRN S 300.4 DYSTHYMIC DISORDER 03/26/2012 JONO URBINA APRN 525.9 UNSPECIFIED DISORDER OF THE TEETH AND SUPPORTING STRUCTURES 03/26/2012 JONO URBINA APRN S 710.0 SYSTEMIC LUPUS ERYTHEMATOSUS 03/26/2012 300.4 DYSTHYMIC DISORDER 03/26/2012 525.9 UNSPECIFIED DISORDER OF THE TEETH AND SUPPORTING STRUCTURES 03/26/2012 710.0 Systemic Lupus Erythematosus 03/26/2012 JUSTEN DEWEY MD 300.4 DYSTHYMIC DISORDER 03/26/2012 JUSTEN DEWEY MD 525.9 UNSPECIFIED DISORDER OF THE TEETH AND SUPPORTING STRUCTURES 03/26/2012 JUSTEN DEWEY MD 710.0 Systemic Lupus Erythematosus 03/26/2012 JUSTEN DEWEY MD 300.4 DYSTHYMIC DISORDER 03/26/2012 JUSTEN DEWEY MD 525.9 UNSPECIFIED DISORDER OF THE TEETH AND SUPPORTING STRUCTURES 03/26/2012 JUSTEN DEWEY MD 710.0 Systemic Lupus Erythematosus 03/26/2012 BRANDI JC DO K 300.4 DYSTHYMIC DISORDER 03/26/2012 BRANDI JC DO K 525.9 UNSPECIFIED DISORDER OF THE TEETH AND SUPPORTING STRUCTURES 03/26/2012 BRANDI JC DO K 710.0 Systemic Lupus Erythematosus 03/26/2012 JONO URBINA APRN S 300.4 DYSTHYMIC DISORDER 03/26/2012 JONO URBINA APRN S 525.9 UNSPECIFIED DISORDER OF THE TEETH AND SUPPORTING STRUCTURES 03/26/2012 JONO URBINA APRN S 710.0 Systemic Lupus Erythematosus 03/26/2012 JUSTEN DEWEY MD 300.4 DYSTHYMIC DISORDER 03/26/2012 JUSTEN DEWEY MD 525.9 UNSPECIFIED DISORDER OF THE TEETH AND SUPPORTING STRUCTURES 03/26/2012 JUSTEN DEWEY MD 710.0 Systemic Lupus Erythematosus 03/26/2012 JOSE F VALLEJO MD 300.4 DYSTHYMIC DISORDER 03/26/2012 JOSE F VALLEJO MD 525.9 UNSPECIFIED DISORDER OF THE TEETH AND SUPPORTING STRUCTURES 03/26/2012 JOSE F VALLEJO MD 710.0 Systemic Lupus Erythematosus 03/26/2012 JOSE F VALLEJO MD 300.4 DYSTHYMIC DISORDER 03/26/2012 JOSE F VALLEJO MD 525.9 UNSPECIFIED DISORDER OF THE TEETH AND SUPPORTING STRUCTURES 03/26/2012 JOSE F VALLEJO MD 710.0 Systemic Lupus Erythematosus 03/26/2012 ANGELES MCKEON MD 300.4 DYSTHYMIC DISORDER 03/26/2012 ANGELES MCKEON MD 525.9 UNSPECIFIED DISORDER OF THE TEETH AND SUPPORTING STRUCTURES 03/26/2012 ANGELES MCKEON MD 710.0 Systemic Lupus Erythematosus 03/26/2012 JOSE F VALLEJO MD 300.4 DYSTHYMIC DISORDER 03/26/2012 JOSE F VALLEJO MD 525.9 UNSPECIFIED DISORDER OF THE TEETH AND SUPPORTING STRUCTURES 03/26/2012 JOSE F VALLEJO MD 710.0 Systemic Lupus Erythematosus 03/26/2012 JOSE F VALLEJO MD 300.4 DYSTHYMIC DISORDER 03/26/2012 JOSE F VALLEJO MD 525.9 UNSPECIFIED DISORDER OF THE TEETH AND SUPPORTING STRUCTURES 03/26/2012 JOSE F VALLEJO MD N 710.0 Systemic Lupus Erythematosus 03/26/2012 MANISHA MENJIVAR APRN 300.4 DYSTHYMIC DISORDER 03/26/2012 MANISHA MENJIVAR APRN 525.9 UNSPECIFIED DISORDER OF THE TEETH AND SUPPORTING STRUCTURES 03/26/2012 MANISHA MENJIVAR APRN 710.0 Systemic Lupus Erythematosus 03/26/2012 JOSE F VALLEJO MD N 300.4 DYSTHYMIC DISORDER 03/26/2012 JOSE F VALLEJO MD N 525.9 UNSPECIFIED DISORDER OF THE TEETH AND SUPPORTING STRUCTURES 03/26/2012 JOSE F VALLEJO MD 710.0 Systemic Lupus Erythematosus 03/26/2012 JOSE F VALLEJO MD N 300.4 DYSTHYMIC DISORDER 03/26/2012 JOSE F VALLEJO MD N 525.9 UNSPECIFIED DISORDER OF THE TEETH AND SUPPORTING STRUCTURES 03/26/2012 JOSE F VALLEJO MD N 710.0 Systemic Lupus Erythematosus 03/26/2012 JOSE F VALLEJO MD N 300.4 DYSTHYMIC DISORDER 03/26/2012 JOSE F VALLEJO MD N 525.9 UNSPECIFIED DISORDER OF THE TEETH AND SUPPORTING STRUCTURES 03/26/2012 JOSE F VALLEJO MD N 710.0 Systemic Lupus Erythematosus 03/26/2012 JOSE F VALLEJO MD N 300.4 DYSTHYMIC DISORDER 03/26/2012 JOSE F VALLEJO MD N 525.9 UNSPECIFIED DISORDER OF THE TEETH AND SUPPORTING STRUCTURES 03/26/2012 JOSE F VALLEJO MD N 710.0 Systemic Lupus Erythematosus 04/03/2012 Ot 710.0 SYST LUPUS ERYTHEMATOSIS 04/03/2012 Ot 719.40 JOINT PAIN- UNSPEC 05/07/2012 ANGELES MCKEON MD V03.82 Ppv23 (pneumovax) Dx 05/07/2012 ANGELES MCKEON MD V04.81 Flu Dx (3 Yrs And Above, Im) 05/07/2012 ANGELES MCKEON MD V03.82 Ppv23 (pneumovax) Dx 05/07/2012 ANGELES MCKEON MD V04.81 Flu Dx (3 Yrs And Above, Im) 05/07/2012 V03.82 Ppv23 ( pneumovax) Dx 05/07/2012 V04.81 Flu Dx (3 Yrs And Above, Im) 05/07/2012 TITO URBINA APRNA S V03.82 Ppv23 (pneumovax) Dx 05/07/2012 JONO URBINA APRN S V04.81 Flu Dx (3 Yrs And Above, Im) 05/07/2012 V03.82 Ppv23 ( pneumovax) Dx 05/07/2012 V04.81 Flu Dx (3 Yrs And Above, Im) 05/07/2012 JONO URBINA APRN S V03.82 Ppv23 (pneumovax) Dx 05/07/2012 JONO URBINA APRN S V04.81 Flu Dx (3 Yrs And Above, Im) 05/07/2012 V03.82 Ppv23 ( pneumovax) Dx 05/07/2012 V04.81 Flu Dx (3 Yrs And Above, Im) 05/07/2012 JUSTEN DEWEY MD V03.82 Ppv23 (pneumovax) Dx 05/07/2012 JUSTEN DEWEY MD V04.81 Flu Dx (3 Yrs And Above, Im) 05/07/2012 JUSTEN DEWEY MD V03.82 Ppv23 (pneumovax) Dx 05/07/2012 JUSTEN DEWEY MD V04.81 Flu Dx (3 Yrs And Above, Im) 05/07/2012 JC DO, BRANDI K V03.82 Ppv23 (pneumovax) Dx 05/07/2012 JC DO, BRANDI K V04.81 Flu Dx (3 Yrs And Above, Im) 05/07/2012 JONO URBINA APRN S V03.82 Ppv23 (pneumovax) Dx 05/07/2012 JONO URBINA APRN S V04.81 Flu Dx (3 Yrs And Above, Im) 05/07/2012 JUSTEN DEWEY MD V03.82 Ppv23 (pneumovax) Dx 05/07/2012 JUSTEN DEWEY MD V04.81 Flu Dx (3 Yrs And Above, Im) 05/07/2012 JOSE F VALLEJO MD V03.82 Ppv23 (pneumovax) Dx 05/07/2012 JOSE F VALLEJO MD V04.81 Flu Dx (3 Yrs And Above, Im) 05/07/2012 JOSE F VALLEJO MD V03.82 Ppv23 (pneumovax) Dx 05/07/2012 JOSE F VALLEJO MD V04.81 Flu Dx (3 Yrs And Above, Im) 05/07/2012 ANGELES MCKEON MD V03.82 Ppv23 (pneumovax) Dx 05/07/2012 ANGELES MCKEON MD V04.81 Flu Dx (3 Yrs And Above, Im) 05/07/2012 JOSE F VALLEJO MD V03.82 Ppv23 (pneumovax) Dx 05/07/2012 JOSE F VALLEJO MD V04.81 Flu Dx (3 Yrs And Above, Im) 05/07/2012 JOSE F VALLEJO MD V03.82 Ppv23 (pneumovax) Dx 05/07/2012 JOSE F VALLEJO MD V04.81 Flu Dx (3 Yrs And Above, Im) 05/07/2012 MANISHA MENJIVAR APRN V03.82 Ppv23 (pneumovax) Dx 05/07/2012 MANISHA MENJIVAR APRN V04.81 Flu Dx (3 Yrs And Above, Im) 05/07/2012 JOSE F VALLEJO MD V03.82 Ppv23 (pneumovax) Dx 05/07/2012 JOSE F VALLEJO MD V04.81 Flu Dx (3 Yrs And Above, Im) 05/07/2012 JOSE F VALLEJO MD V03.82 Ppv23 (pneumovax) Dx 05/07/2012 JOSE F VALLEJO MD V04.81 Flu Dx (3 Yrs And Above, Im) 05/07/2012 JOSE F VALLEJO MD V03.82 Ppv23 (pneumovax) Dx 05/07/2012 JOSE F VALLEJO MD V04.81 Flu Dx (3 Yrs And Above, Im) 05/07/2012 JOSE F VALLEJO MD V03.82 Ppv23 (pneumovax) Dx 05/07/2012 JOSE F VALLEJO MD V04.81 Flu Dx (3 Yrs And Above, Im) 08/02/2012 ANGELES MCKEON MD 272.4 HYPERLIPIDEMIA 08/02/2012 ANGELES MCKEON MD 714.0 RHEUMATOID ARTHRITIS 08/02/2012 ANGELES MCKEON MD 790.29 HYPERGLYCEMIA 08/02/2012 272.4 HYPERLIPIDEMIA 08/02/2012 714.0 RHEUMATOID ARTHRITIS 08/02/2012 790.29 HYPERGLYCEMIA 08/02/2012 CARLITOS CASSIDY, JONO S 272.4 HYPERLIPIDEMIA 08/02/2012 CARLITOS CASSIDY, JONO S 714.0 RHEUMATOID ARTHRITIS 08/02/2012 CARLITOS CASSIDY, JONO S 790.29 HYPERGLYCEMIA 08/02/2012 272.4 HYPERLIPIDEMIA 08/02/2012 714.0 RHEUMATOID ARTHRITIS 08/02/2012 790.29 HYPERGLYCEMIA 08/02/2012 272.4 HYPERLIPIDEMIA 08/02/2012 714.0 RHEUMATOID ARTHRITIS 08/02/2012 790.29 HYPERGLYCEMIA 08/02/2012 JUSTEN DEWEY MD 272.4 HYPERLIPIDEMIA 08/02/2012 JUSTEN DEWEY MD 714.0 RHEUMATOID ARTHRITIS 08/02/2012 JUSTEN DEWEY MD 790.29 HYPERGLYCEMIA 08/02/2012 JUSTEN DEWEY MD 272.4 HYPERLIPIDEMIA 08/02/2012 JUSTEN DEWEY MD 714.0 RHEUMATOID ARTHRITIS 08/02/2012 JUSTEN DEWEY MD 790.29 HYPERGLYCEMIA 08/02/2012 JC DO, BRANDI K 272.4 HYPERLIPIDEMIA 08/02/2012 JC DO, BRANDI K 714.0 RHEUMATOID ARTHRITIS 08/02/2012 JC DO, BRANDI K 790.29 HYPERGLYCEMIA 08/02/2012 CARLITOS CASSIDY, JONO S 272.4 HYPERLIPIDEMIA 08/02/2012 CARLITOS CASSIDY, JONO S 714.0 RHEUMATOID ARTHRITIS 08/02/2012 CARLITOS CASSIDY, JONO S 790.29 HYPERGLYCEMIA 08/02/2012 JUSTEN DEWEY MD M 272.4 HYPERLIPIDEMIA 08/02/2012 JUSTEN DEWEY MD 714.0 RHEUMATOID ARTHRITIS 08/02/2012 JUSTEN DEWEY MD 790.29 HYPERGLYCEMIA 08/02/2012 JOSE F VALLEJO MD 272.4 HYPERLIPIDEMIA 08/02/2012 JOSE F VALLEJO MD 714.0 RHEUMATOID ARTHRITIS 08/02/2012 JOSE F VALLEJO MD 790.29 HYPERGLYCEMIA 08/02/2012 JOSE F VALLEJO MD N 272.4 HYPERLIPIDEMIA 08/02/2012 JOSE F VALLEJO MD N 714.0 RHEUMATOID ARTHRITIS 08/02/2012 JOSE F VALLEJO MD N 790.29 HYPERGLYCEMIA 08/02/2012 ANGELES MCKEON MD 272.4 HYPERLIPIDEMIA 08/02/2012 ANGELES MCKEON MD 714.0 RHEUMATOID ARTHRITIS 08/02/2012 ANGELES MCKEON MD 790.29 HYPERGLYCEMIA 08/02/2012 JOSE F VALLEJO MD N 272.4 HYPERLIPIDEMIA 08/02/2012 JOSE F VALLEJO MD N 714.0 RHEUMATOID ARTHRITIS 08/02/2012 JOSE F VALLEJO MD N 790.29 HYPERGLYCEMIA 08/02/2012 JOSE F VALLEJO MD N 272.4 HYPERLIPIDEMIA 08/02/2012 JOSE F VALLEJO MD N 714.0 RHEUMATOID ARTHRITIS 08/02/2012 JOSE F VALLEJO MD N 790.29 HYPERGLYCEMIA 08/02/2012 MANISHA MENJIVAR APRN 272.4 HYPERLIPIDEMIA 08/02/2012 MANISHA MENJIVAR APRN 714.0 RHEUMATOID ARTHRITIS 08/02/2012 MANISHA MENJIVAR APRN 790.29 HYPERGLYCEMIA 08/02/2012 JOSE F VALLEJO MD N 272.4 HYPERLIPIDEMIA 08/02/2012 JOSE F VALLEJO MD N 714.0 RHEUMATOID ARTHRITIS 08/02/2012 JOSE F VALLEJO MD N 790.29 HYPERGLYCEMIA 08/02/2012 JOSE F VALLEJO MD N 272.4 HYPERLIPIDEMIA 08/02/2012 JOSE F VALLEJO MD N 714.0 RHEUMATOID ARTHRITIS 08/02/2012 JOSE F VALLEJO MD N 790.29 HYPERGLYCEMIA 08/02/2012 JOSE F VALLEJO MD N 272.4 HYPERLIPIDEMIA 08/02/2012 JOSE F VALLEJO MD N 714.0 RHEUMATOID ARTHRITIS 08/02/2012 JOSE F VALLEJO MD N 790.29 HYPERGLYCEMIA 08/02/2012 JOSE F VALLEJO MD N 272.4 HYPERLIPIDEMIA 08/02/2012 JOSE F VALLEJO MD N 714.0 RHEUMATOID ARTHRITIS 08/02/2012 JOSE F VALLEJO MD N 790.29 HYPERGLYCEMIA 08/04/2012 ANGELES MCKEON MD V05.8 ZOSTAVAX DX 08/04/2012 V05.8 ZOSTAVAX DX 08/04/2012 CARLITOS CASSIDY, JONO S V05.8 ZOSTAVAX DX 08/04/2012 V05.8 ZOSTAVAX DX 08/04/2012 V05.8 ZOSTAVAX DX 08/04/2012 ZULEIMA MARIA, JUSTEN Warner V05.8 ZOSTAVAX DX 08/04/2012 ZULEIMA MARIA, JUSTEN Warner V05.8 ZOSTAVAX DX 08/04/2012 BRANDI JC DO V05.8 ZOSTAVAX DX 08/04/2012 CARLITOS CASSIDY, JONO S V05.8 ZOSTAVAX DX 08/04/2012 ZULEIMA MARIA, JUSTEN Warner V05.8 ZOSTAVAX DX 08/04/2012 GENEVIEVE MARIA, JOSE F Elliott V05.8 ZOSTAVAX DX 08/04/2012 GENEVIEVE MARIA, JOSE F Elliott V05.8 ZOSTAVAX DX 08/04/2012 MIKE MARIA, ANGELES V05.8 ZOSTAVAX DX 08/04/2012 GENEVIEVE MARIA, JOSE F Elliott V05.8 ZOSTAVAX DX 08/04/2012 GENEVIEVE MARIA, JOSE F Elliott V05.8 ZOSTAVAX DX 08/04/2012 MANISHA MENJIVAR APRN V05.8 ZOSTAVAX DX 08/04/2012 GENEVIEVE MARIA, JOSE F Elliott V05.8 ZOSTAVAX DX 08/04/2012 GENEVIEVE MARIA, JOSE F Elliott V05.8 ZOSTAVAX DX 08/04/2012 GENEVIEVE MARIA, JOSE F Elliott V05.8 ZOSTAVAX DX 08/04/2012 GENEVIEVE MARIA, JOSE F Elliott V05.8 ZOSTAVAX DX 09/19/2012 250.00 DIABETES MELLITUS TYPE 2 - UNCOMPLICATED, CONTROLLED 09/19/2012 CARLITOS CASSIDY, JONO Gan 250.00 DIABETES MELLITUS TYPE 2 - UNCOMPLICATED, CONTROLLED 09/19/2012 250.00 DIABETES MELLITUS TYPE 2 - UNCOMPLICATED, CONTROLLED 09/19/2012 250.00 DIABETES MELLITUS TYPE 2 - UNCOMPLICATED, CONTROLLED 09/19/2012 JUSTEN DEWEY MD 250.00 DIABETES MELLITUS TYPE 2 - UNCOMPLICATED, CONTROLLED 09/19/2012 JUSTEN DEWEY MD 250.00 DIABETES MELLITUS TYPE 2 - UNCOMPLICATED, CONTROLLED 09/19/2012 BRANDI JC DO K 250.00 DIABETES MELLITUS TYPE 2 - UNCOMPLICATED, CONTROLLED 09/19/2012 JONO URBINA APRN 250.00 DIABETES MELLITUS TYPE 2 - UNCOMPLICATED, CONTROLLED 09/19/2012 JUSTEN DEWEY MD 250.00 DIABETES MELLITUS TYPE 2 - UNCOMPLICATED, CONTROLLED 09/19/2012 GENEVIEVE MARIA, JOSE F N 250.00 DIABETES MELLITUS TYPE 2 - UNCOMPLICATED, CONTROLLED 09/19/2012 GENEVIEVE MARIA, JOSE F N 250.00 DIABETES MELLITUS TYPE 2 - UNCOMPLICATED, CONTROLLED 09/19/2012 ANGELES MCKEON MD 250.00 DIABETES MELLITUS TYPE 2 - UNCOMPLICATED, CONTROLLED 09/19/2012 GENEVIEVE MARIA, JOSE F N 250.00 DIABETES MELLITUS TYPE 2 - UNCOMPLICATED, CONTROLLED 09/19/2012 GENEVIEVE MARIA, JOSE F N 250.00 DIABETES MELLITUS TYPE 2 - UNCOMPLICATED, CONTROLLED 09/19/2012 MANISHA MENJIVAR APRN 250.00 DIABETES MELLITUS TYPE 2 - UNCOMPLICATED, CONTROLLED 09/19/2012 GENEVIEVE MARIA, JOSE F N 250.00 DIABETES MELLITUS TYPE 2 - UNCOMPLICATED, CONTROLLED 09/19/2012 GENEVIEVE MARIA, JOSE F N 250.00 DIABETES MELLITUS TYPE 2 - UNCOMPLICATED, CONTROLLED 09/19/2012 GENEVIEVE MARIA, JOSE F N 250.00 DIABETES MELLITUS TYPE 2 - UNCOMPLICATED, CONTROLLED 09/19/2012 GENEVIEVE MARIA, JOSE F N 250.00 DIABETES MELLITUS TYPE 2 - UNCOMPLICATED, CONTROLLED 01/08/2013 796.2 ELEVATED BLOOD PRESSURE READING WITHOUT DIAGNOSIS OF HYPERTENSION 01/08/2013 796.2 ELEVATED BLOOD PRESSURE READING WITHOUT DIAGNOSIS OF HYPERTENSION 01/08/2013 JUSTEN DEWEY MD 796.2 ELEVATED BLOOD PRESSURE READING WITHOUT DIAGNOSIS OF HYPERTENSION 01/08/2013 JUSTEN DEWEY MD 796.2 ELEVATED BLOOD PRESSURE READING WITHOUT DIAGNOSIS OF HYPERTENSION 01/08/2013 BRANDI JC DO 796.2 ELEVATED BLOOD PRESSURE READING WITHOUT DIAGNOSIS OF HYPERTENSION 01/08/2013 JONO URBINA APRN 796.2 ELEVATED BLOOD PRESSURE READING WITHOUT DIAGNOSIS OF HYPERTENSION 01/08/2013 JUSTEN DEWEY MD 796.2 ELEVATED BLOOD PRESSURE READING WITHOUT DIAGNOSIS OF HYPERTENSION 01/08/2013 JOSE F VALLEJO MD 796.2 ELEVATED BLOOD PRESSURE READING WITHOUT DIAGNOSIS OF HYPERTENSION 01/08/2013 JOSE F VALLEJO MD N 796.2 ELEVATED BLOOD PRESSURE READING WITHOUT DIAGNOSIS OF HYPERTENSION 01/08/2013 ANGELES MCKEON MD 796.2 ELEVATED BLOOD PRESSURE READING WITHOUT DIAGNOSIS OF HYPERTENSION 01/08/2013 JOSE F VALLEJO MD N 796.2 ELEVATED BLOOD PRESSURE READING WITHOUT DIAGNOSIS OF HYPERTENSION 01/08/2013 JOSE F VALLEJO MD 796.2 ELEVATED BLOOD PRESSURE READING WITHOUT DIAGNOSIS OF HYPERTENSION 01/08/2013 MANISHA MENJIVAR APRN 796.2 ELEVATED BLOOD PRESSURE READING WITHOUT DIAGNOSIS OF HYPERTENSION 01/08/2013 JOSE F VALLEJO MD N 796.2 ELEVATED BLOOD PRESSURE READING WITHOUT DIAGNOSIS OF HYPERTENSION 01/08/2013 JOSE F VALLEJO MD 796.2 ELEVATED BLOOD PRESSURE READING WITHOUT DIAGNOSIS OF HYPERTENSION 01/08/2013 JOSE F VALLEJO MD 796.2 ELEVATED BLOOD PRESSURE READING WITHOUT DIAGNOSIS OF HYPERTENSION 01/08/2013 JOSE F VALLEJO MD 796.2 ELEVATED BLOOD PRESSURE READING WITHOUT DIAGNOSIS OF HYPERTENSION 02/20/2013 696.1 PSORIASIS 02/20/2013 JUSTEN DEWEY MD 696.1 PSORIASIS 02/20/2013 JUSTEN DEWEY MD M 696.1 PSORIASIS 02/20/2013 BRANDI JC DO 696.1 PSORIASIS 02/20/2013 JONO URBINA APRN 696.1 PSORIASIS 02/20/2013 JUSTEN DEWEY MD M 696.1 PSORIASIS 02/20/2013 JOSE F VALLEJO MD N 696.1 PSORIASIS 02/20/2013 JOSE F VALLEJO MD N 696.1 PSORIASIS 02/20/2013 ANGELES MCKEON MD 696.1 PSORIASIS 02/20/2013 JOSE F VALLEJO MD N 696.1 PSORIASIS 02/20/2013 JOSE F VALLEJO MD N 696.1 PSORIASIS 02/20/2013 MANISHA MENJIVAR APRN 696.1 PSORIASIS 02/20/2013 JOSE F VALLEJO MD N 696.1 PSORIASIS 02/20/2013 JOSE F VALLEJO MD N 696.1 PSORIASIS 02/20/2013 JOSE F VALLEJO MD N 696.1 PSORIASIS 02/20/2013 JOSE F VALLEJO MD N 696.1 PSORIASIS 07/30/2013 HOSEA BRANDI MICHAUD V04.81 FLU SHOT 07/30/2013 JONO URBINA APRN V04.81 FLU SHOT 07/30/2013 JUSTEN DEWEY MD V04.81 FLU SHOT 07/30/2013 JOSE F VALLEJO MD V04.81 FLU SHOT 07/30/2013 JOSE F VALLEJO MD V04.81 FLU SHOT 07/30/2013 ANGELES MCKEON MD V04.81 FLU SHOT 07/30/2013 JOSE F VALLEJO MD V04.81 FLU SHOT 07/30/2013 JOSE F VALLEJO MD V04.81 FLU SHOT 07/30/2013 MANISHA MENJIVAR APRN V04.81 FLU SHOT 07/30/2013 JOES F VALLEJO MD V04.81 FLU SHOT 07/30/2013 JOSE F VALLEJO MD V04.81 FLU SHOT 07/30/2013 JOSE F VALLEJO MD V04.81 FLU SHOT 07/30/2013 JOSE F VALLEJO MD V04.81 FLU SHOT 09/12/2013 JUSTEN DEWEY MD 786.05 shortness of breath 09/12/2013 JOSE F VALLEJO MD 786.05 shortness of breath 09/12/2013 JOSE F VALLEJO MD N 786.05 shortness of breath 09/12/2013 ANGELES MCKEON MD 786.05 shortness of breath 09/12/2013 JOSE F VALLEJO MD 786.05 SHORTNESS OF BREATH 09/12/2013 JOSE F VALLEJO MD 786.05 SHORTNESS OF BREATH 09/12/2013 MANISHA MENJIVAR APRN 786.05 SHORTNESS OF BREATH 09/12/2013 JOSE F VALLEJO MD N 786.05 SHORTNESS OF BREATH 09/12/2013 JOSE F VALLEJO MD 786.05 SHORTNESS OF BREATH 09/12/2013 JOSE F VALLEJO MD N 786.05 SHORTNESS OF BREATH 09/12/2013 JOSE F VALLEJO MD N 786.05 SHORTNESS OF BREATH 10/30/2013 KYREE RAMIREZ DO Ot 250.00 DIAB CAROLE WO COMPL, TYPE II OR UNSPEC TY 10/30/2013 ASHLEY MICHAUD KYREE M Ot 278.00 OBESITY, NOS 10/30/2013 ASHLEY MICHAUD KYREE M Ot 305.1 TOBACCO USE DISORDER 10/30/2013 ASHLEY MICHAUD KYREE M Ot 369.4 LEGAL BLINDNESS-[place] DEF 10/30/2013 ASHLEY MICHAUD KYREE Timmy Ot 696.1 OTHER PSORIASIS 10/30/2013 ASHLEY MICHAUD KYREE Timmy Ot V13.4 HX OF ARTHRITIS 12/14/2013 HOSEA MICHAUD BRANDI K Ot 250.00 DIAB CAROLE WO COMPL, TYPE II OR UNSPEC TY 12/14/2013 HOSEA MICHAUD BRANDI K Ot 272.4 HYPERLIPIDEMIA NEC/NOS 12/14/2013 HOSEA MICHAUD BRANDI K Ot 305.1 TOBACCO USE DISORDER 12/14/2013 HOSEA MICHAUD BRANDI K Ot 311 DEPRESSIVE DISORDER NEC 12/14/2013 HOSEA MICHAUD BRANDI K Ot 338.29 OTHER CHRONIC PAIN 12/14/2013 LINA JC DOA K Ot 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, ONE EYE 12/14/2013 LINA JC DOA K Ot 491.21 OBSTR CHRONIC BRONCHITIS, W (ACUTE) EXAC 12/14/2013 LINA JC DOA K Ot 692.9 DERMATITIS NOS 12/14/2013 LINA JC DOA K Ot 696.1 OTHER PSORIASIS 12/14/2013 LINA JC DOA K Ot 710.0 SYST LUPUS ERYTHEMATOSIS 12/14/2013 LINA JC DOA K Ot 714.0 RHEUMATOID ARTHRITIS 12/14/2013 LINA JC DOA K Ot 724.5 BACKACHE NOS 12/14/2013 LINA JC DOA K Ot 786.52 PAINFUL RESPIRATION 02/18/2014 JOSE F VALLEJO MD 496 CHRONIC AIRWAY OBSTRUCTION NOT ELSEWHERE CLASSIFIED 02/18/2014 JOSE F VALLEJO MD 516.31 IDIOPATHIC PULMONARY FIBROSIS 02/18/2014 JOSE F VALLEJO MD 496 CHRONIC AIRWAY OBSTRUCTION NOT ELSEWHERE CLASSIFIED 02/18/2014 JOSE F VALLEJO MD 516.31 IDIOPATHIC PULMONARY FIBROSIS 02/18/2014 MANISHA MENJIVAR APRN 496 CHRONIC AIRWAY OBSTRUCTION NOT ELSEWHERE CLASSIFIED 02/18/2014 MANISHA MENJIVAR APRN 516.31 IDIOPATHIC PULMONARY FIBROSIS 02/18/2014 JOSE F VALLEJO MD 496 CHRONIC AIRWAY OBSTRUCTION NOT ELSEWHERE CLASSIFIED 02/18/2014 GENEVIEVE MD, JOSE F N 516.31 IDIOPATHIC PULMONARY FIBROSIS 02/18/2014 JOSE F VALLEJO MD N 496 CHRONIC AIRWAY OBSTRUCTION NOT ELSEWHERE CLASSIFIED 02/18/2014 JOSE F VALLEJO MD N 516.31 IDIOPATHIC PULMONARY FIBROSIS 02/18/2014 JOSE F VALLEJO MD N 496 CHRONIC AIRWAY OBSTRUCTION NOT ELSEWHERE CLASSIFIED 02/18/2014 JOSE F VALLEJO MD N 516.31 IDIOPATHIC PULMONARY FIBROSIS 02/18/2014 JOSE F VALLEJO MD N 496 CHRONIC AIRWAY OBSTRUCTION NOT ELSEWHERE CLASSIFIED 02/18/2014 JOSE F VALLEJO MD N 516.31 IDIOPATHIC PULMONARY FIBROSIS 03/05/2014 JOSE F VALLEJO MD N 726.33 BURSITIS OLECRANON LEFT 03/05/2014 MANISHA MENJIAVR APRN 726.33 BURSITIS OLECRANON LEFT 03/05/2014 JOSE F VALLEJO MD N 726.33 BURSITIS OLECRANON LEFT 03/05/2014 JOSE F VALLEJO MD N 726.33 BURSITIS OLECRANON LEFT 03/05/2014 JOSE F VALLEJO MD N 726.33 BURSITIS OLECRANON LEFT 03/05/2014 JOSE F VALLEJO MD N 726.33 BURSITIS OLECRANON LEFT 07/10/2014 JOSE F VALLEJO MD N 578.1 BLOOD IN STOOL 07/10/2014 JOSE F VALLEJO MD N 578.1 BLOOD IN STOOL 07/10/2014 JOSE F VALLEJO MD N 578.1 BLOOD IN STOOL 07/10/2014 JOSE F VALLEJO MD N 578.1 BLOOD IN STOOL 08/22/2014 ROHITH WALKER DO Ot 211.3 BENIGN NEOPLASM LG BOWEL 08/22/2014 ROHITH WALKER DO Ot 578.1 BLOOD IN STOOL 11/13/2014 JOSE F VALLEJO MD N V15.82 NICOTINE ABUSE 11/19/2014 Ot V72.84 11/28/2014 Ot 710.0 11/28/2014 JUSTEN DEWEY MD Ot 785.6 11/28/2014 JUSTEN DEWEY MD Ot 786.05 11/28/2014 JUSTEN DEWEY MD Ot 793.19 11/28/2014 JUSTEN DEWEY MD Ot 786.05 11/28/2014 KYREE RAMIREZ DO Ot V72.84 11/28/2014 KYREE RAMIREZ DO Ot 305.1 11/28/2014 KYREE RAMIREZ DO Ot 515 11/28/2014 KYREE RAMIREZ DO Ot 786.09 11/28/2014 KYREE RAMIREZ DO Ot V13.4 11/28/2014 Ot V72.84 01/08/2016 Ot 710.0 SYST LUPUS ERYTHEMATOSIS 01/08/2016 JUSTEN DEWEY MD Ot 785.6 ENLARGEMENT LYMPH NODES 01/08/2016 JUSTEN DEWEY MD Ot 786.05 SHORTNESS OF BREATH 01/08/2016 JUSTEN DEWEY MD Ot 793.19 OTHER NONSPECIFIC ABNORMAL FINDING OF DAMIEN 01/08/2016 JUSTEN DEWEY MD Ot 786.05 SHORTNESS OF BREATH 01/08/2016 KYREE RAMIREZ DO Ot V72.84 EXAM PRE-OPERATIVE NOS 01/08/2016 KYREE RAMIREZ DO Ot 305.1 TOBACCO USE DISORDER 01/08/2016 KYREE RAMIREZ DO Ot 515 POSTINFLAM PULM FIBROSIS 01/08/2016 KYREE RAMIREZ DO Ot 786.09 RESPIRATORY ABNORM NEC 01/08/2016 KYREE RAMIREZ DO Ot V13.4 HX OF ARTHRITIS 01/08/2016 Ot V72.84 EXAM PRE- OPERATIVE NOS 01/11/2016 CHATA MARIA, HARMONY Abernathy ([facility]) Ot Z02.71 ENCOUNTER FOR DISABILITY DETERMINATION 08/03/2016 Ot 710.0 SYST LUPUS ERYTHEMATOSIS 08/03/2016 JUSTEN DEWEY MD Ot 785.6 ENLARGEMENT LYMPH NODES 08/03/2016 JUSTEN DEWEY MD Ot 786.05 SHORTNESS OF BREATH 08/03/2016 JUSTEN DEWEY MD Ot 793.19 OTHER NONSPECIFIC ABNORMAL FINDING OF DAMIEN 08/03/2016 JUSTEN DEWEY MD Ot 786.05 SHORTNESS OF BREATH 08/03/2016 KYREE RAMIREZ DO Ot V72.84 EXAM PRE-OPERATIVE NOS 08/03/2016 KYREE RAMIREZ DO Ot 305.1 TOBACCO USE DISORDER 08/03/2016 KYREE RAMIREZ DO Ot 515 POSTINFLAM PULM FIBROSIS 08/03/2016 KYREE RAMIREZ DO Ot 786.09 RESPIRATORY ABNORM NEC 08/03/2016 KYREE RAMIREZ DO Ot V13.4 HX OF ARTHRITIS 08/03/2016 Ot V72.84 EXAM PRE- OPERATIVE NOS 08/03/2016 HARMONY BRIZUELA MD (DDU) Ot Z02.71 ENCOUNTER FOR DISABILITY DETERMINATION 08/04/2016 Ot 710.0 SYST LUPUS ERYTHEMATOSIS 08/04/2016 JUSTEN DEWEY MD Ot 785.6 ENLARGEMENT LYMPH NODES 08/04/2016 JUSTEN DEWEY MD Ot 786.05 SHORTNESS OF BREATH 08/04/2016 JUSTEN DEWEY MD Ot 793.19 OTHER NONSPECIFIC ABNORMAL FINDING OF DAMIEN 08/04/2016 JUSTEN DEWEY MD Ot 786.05 SHORTNESS OF BREATH 08/04/2016 KYREE RAMIREZ DO Ot V72.84 EXAM PRE-OPERATIVE NOS 08/04/2016 KYREE RAMIREZ DO Ot 305.1 TOBACCO USE DISORDER 08/04/2016 KYREE RAMIREZ DO Ot 515 POSTINFLAM PULM FIBROSIS 08/04/2016 KYREE RAMIREZ DO Ot 786.09 RESPIRATORY ABNORM NEC 08/04/2016 KYREE RAMIREZ DO Ot V13.4 HX OF ARTHRITIS 08/04/2016 Ot V72.84 EXAM PRE- OPERATIVE NOS 08/04/2016 HARMONY BRIZUELA MD (U) Ot Z02.71 ENCOUNTER FOR DISABILITY DETERMINATION 08/04/2016 AHRMONY BRIZUELA MD (DDU) Ot Z02.71 ENCOUNTER FOR DISABILITY DETERMINATION 08/05/2016 HARMONY BRIZUELA MD (DDU) Ot Z02.71 ENCOUNTER FOR DISABILITY DETERMINATION 08/05/2016 JOSE F VALLEJO MD Ot E11.9 TYPE 2 DIABETES MELLITUS WITHOUT COMPLIC 08/05/2016 JOSE F VALLEJO MD Ot E87.2 ACIDOSIS 08/05/2016 JOSE F VALLEJO MD Ot E87.6 HYPOKALEMIA 08/05/2016 JOSE F VALLEJO MD Ot I10 ESSENTIAL (PRIMARY) HYPERTENSION 08/05/2016 JOSE F VALLEJO MD Ot J84.10 PULMONARY FIBROSIS, UNSPECIFIED 08/05/2016 JOSE F VALLEJO MD Ot M06.9 RHEUMATOID ARTHRITIS, UNSPECIFIED 08/05/2016 GENEVIEVE MD, JOSE F N Ot N28.89 OTHER SPECIFIED DISORDERS OF KIDNEY AND 08/05/2016 JOSE F VALLEJO MD Ot R06.00 DYSPNEA, UNSPECIFIED 08/05/2016 JOSE F VALLEJO MD Ot R09.02 HYPOXEMIA 08/24/2016 HARMONY BRIZUELA MD (U) Ot Z02.71 ENCOUNTER FOR DISABILITY DETERMINATION 09/09/2016 Ot 710.0 SYST LUPUS ERYTHEMATOSIS 09/09/2016 JUSTEN DEWEY MD Ot 785.6 ENLARGEMENT LYMPH NODES 09/09/2016 JUSTEN DEWEY MD Ot 786.05 SHORTNESS OF BREATH 09/09/2016 JUSTEN DEWEY MD Ot 793.19 OTHER NONSPECIFIC ABNORMAL FINDING OF DAMIEN 09/09/2016 JUSTEN DEWEY MD Ot 786.05 SHORTNESS OF BREATH 09/09/2016 KYREE RAMIREZ DO Ot V72.84 EXAM PRE-OPERATIVE NOS 09/09/2016 KYREE RAMIREZ DO Ot 305.1 TOBACCO USE DISORDER 09/09/2016 KYREE RAMIREZ DO Ot 515 POSTINFLAM PULM FIBROSIS 09/09/2016 KYREE RAMIREZ DO Ot 786.09 RESPIRATORY ABNORM NEC 09/09/2016 KYREE RAMIREZ DO Ot V13.4 HX OF ARTHRITIS 09/09/2016 Ot V72.84 EXAM PRE- OPERATIVE NOS 09/09/2016 HARMONY BRIZUELA MD (U) Ot Z02.71 ENCOUNTER FOR DISABILITY DETERMINATION 02/27/2017 Ot 710.0 SYST LUPUS ERYTHEMATOSIS 02/27/2017 JUSTEN DEWEY MD Ot 785.6 ENLARGEMENT LYMPH NODES 02/27/2017 JUSTEN DEWEY MD Ot 786.05 SHORTNESS OF BREATH 02/27/2017 JUSTEN DEWEY MD Ot 793.19 OTHER NONSPECIFIC ABNORMAL FINDING OF DAMIEN 02/27/2017 JUSTEN DEWEY MD Ot 786.05 SHORTNESS OF BREATH 02/27/2017 KYREE RAMIREZ DO Ot V72.84 EXAM PRE-OPERATIVE NOS 02/27/2017 KYREE RAMIREZ DO Ot 305.1 TOBACCO USE DISORDER 02/27/2017 KYREE RAMIREZ DO Ot 515 POSTINFLAM PULM FIBROSIS 02/27/2017 KYREE RAMIREZ DO Ot 786.09 RESPIRATORY ABNORM NEC 02/27/2017 KYREE RAMIREZ DO Ot V13.4 HX OF ARTHRITIS 02/27/2017 Ot V72.84 EXAM PRE- OPERATIVE NOS 02/27/2017 HARMONY BRIZUELA MD (U) Ot Z02.71 ENCOUNTER FOR DISABILITY DETERMINATION 02/28/2017 KYREE RAMIREZ DO Ot J44.9 CHRONIC OBSTRUCTIVE PULMONARY DISEASE, U 02/28/2017 KYREE RAMIREZ DO Ot J84.10 PULMONARY FIBROSIS, UNSPECIFIED 04/19/2017 JOHANNE DE LOS SANTOS APRN Ot E11.9 TYPE 2 DIABETES MELLITUS WITHOUT COMPLIC 04/19/2017 JOHANNE DE LOS SANTOS APRN Ot J44.1 CHRONIC OBSTRUCTIVE PULMONARY DISEASE W 04/19/2017 JOHANNE DE LOS SANTOS APRN Ot M06.9 RHEUMATOID ARTHRITIS, UNSPECIFIED 04/19/2017 JOHANNE DE LOS SANTOS APRN Ot R06.02 SHORTNESS OF BREATH 04/19/2017 JOHANNE DE LOS SANTOS APRN Ot Z80.9 FAMILY HISTORY OF MALIGNANT NEOPLASM, UN 04/19/2017 JOHANNE DE LOS SANTOS APRN Ot Z87.2 PERSONAL HISTORY OF DISEASES OF THE SKIN 04/19/2017 Ot 710.0 SYST LUPUS ERYTHEMATOSIS 04/19/2017 ZULEIMA MARIA, JUSTEN Warner Ot 785.6 ENLARGEMENT LYMPH NODES 04/19/2017 ZULEIMA MARIA, JUSTEN Warner Ot 786.05 SHORTNESS OF BREATH 04/19/2017 ZULEIMA MARIA, JUSTEN Warner Ot 793.19 OTHER NONSPECIFIC ABNORMAL FINDING OF DAMIEN 04/19/2017 ZULEIMA MARIA, JUSTEN Warner Ot 786.05 SHORTNESS OF BREATH 04/19/2017 KYREE RAMIREZ DO Ot V72.84 EXAM PRE-OPERATIVE NOS 04/19/2017 KYREE RAMIREZ DO Ot 305.1 TOBACCO USE DISORDER 04/19/2017 KYREE RAMIREZ DO Ot 515 POSTINFLAM PULM FIBROSIS 04/19/2017 KYREE RAMIREZ DO Ot 786.09 RESPIRATORY ABNORM NEC 04/19/2017 KYREE RAMIREZ DO Ot V13.4 HX OF ARTHRITIS 04/19/2017 Ot V72.84 EXAM PRE- OPERATIVE NOS 04/19/2017 HARMONY BRIZUELA MD (U) Ot Z02.71 ENCOUNTER FOR DISABILITY DETERMINATION 04/19/2017 KYREE RAMIREZ DO Ot J44.9 CHRONIC OBSTRUCTIVE PULMONARY DISEASE, U 04/19/2017 KYREE RAMIREZ DO, Ot J84.10 PULMONARY FIBROSIS, UNSPECIFIED 04/20/2017 JOHANNE DE LOS SANTOS APRN Ot E11.9 TYPE 2 DIABETES MELLITUS WITHOUT COMPLIC 04/20/2017 JOHANNE DE LOS SANTOS APRN Ot J44.1 CHRONIC OBSTRUCTIVE PULMONARY DISEASE W 04/20/2017 JOHANNE DE LOS SANTOS APRN Ot M06.9 RHEUMATOID ARTHRITIS, UNSPECIFIED 04/20/2017 JOHANNE DE LOS SANTOS APRN Ot R06.02 SHORTNESS OF BREATH 04/20/2017 JOHANNE DE LOS SANTOS APRN Ot Z80.9 FAMILY HISTORY OF MALIGNANT NEOPLASM, UN 04/20/2017 JOHANNE DE LOS SANTOS APRN Ot Z87.2 PERSONAL HISTORY OF DISEASES OF THE SKIN 04/21/2017 KYREE RAMIREZ DO, Ot J44.9 CHRONIC OBSTRUCTIVE PULMONARY DISEASE, U 04/21/2017 KYREE RAMIREZ DO Ot J84.10 PULMONARY FIBROSIS, UNSPECIFIED 04/25/2017 JOHANNE DE LOS SANTOS APRN Ot E11.9 TYPE 2 DIABETES MELLITUS WITHOUT COMPLIC 04/25/2017 JOHANNE DE LOS SANTOS APRN Ot J44.1 CHRONIC OBSTRUCTIVE PULMONARY DISEASE W 04/25/2017 JOHANNE DE LOS SANTOS APRN Ot M06.9 RHEUMATOID ARTHRITIS, UNSPECIFIED 04/25/2017 JOHANNE DE LOS SANTOS APRN Ot R06.02 SHORTNESS OF BREATH 04/25/2017 JOHANNE DE LOS SANTOS APRN Ot Z80.9 FAMILY HISTORY OF MALIGNANT NEOPLASM, UN 04/25/2017 JOHANNE DE LOS SANTOS APRN Ot Z87.2 PERSONAL HISTORY OF DISEASES OF THE SKIN 04/29/2017 KYREE RAMIREZ DO, Ot J44.9 CHRONIC OBSTRUCTIVE PULMONARY DISEASE, U 04/29/2017 KYREE RAMIREZ DO Ot J84.10 PULMONARY FIBROSIS, UNSPECIFIED 05/02/2017 Ot 710.0 SYST LUPUS ERYTHEMATOSIS 05/02/2017 JUSTEN DEWEY MD Ot 785.6 ENLARGEMENT LYMPH NODES 05/02/2017 JUSTEN DEWEY MD Ot 786.05 SHORTNESS OF BREATH 05/02/2017 JUSTEN DEWEY MD Ot 793.19 OTHER NONSPECIFIC ABNORMAL FINDING OF DAMIEN 05/02/2017 JUSTEN DEWEY MD Ot 786.05 SHORTNESS OF BREATH 05/02/2017 KYREE RAMIREZ DO Ot V72.84 EXAM PRE-OPERATIVE NOS 05/02/2017 KYREE RAMIREZ DO Ot 305.1 TOBACCO USE DISORDER 05/02/2017 KYREE RAMIREZ DO Ot 515 POSTINFLAM PULM FIBROSIS 05/02/2017 KYREE RAMIREZ DO Ot 786.09 RESPIRATORY ABNORM NEC 05/02/2017 KYREE RAMIREZ DO Ot V13.4 HX OF ARTHRITIS 05/02/2017 Ot V72.84 EXAM PRE- OPERATIVE NOS 05/02/2017 HARMONY BRIZUELA MD (U) Ot Z02.71 ENCOUNTER FOR DISABILITY DETERMINATION 05/02/2017 KYREE RAMIREZ DO Ot J44.9 CHRONIC OBSTRUCTIVE PULMONARY DISEASE, U 05/02/2017 KYREE RAMIREZ DO Ot J84.10 PULMONARY FIBROSIS, UNSPECIFIED 05/02/2017 KYREE RAMIREZ DO Ot J44.9 CHRONIC OBSTRUCTIVE PULMONARY DISEASE, U 05/02/2017 KYREE RAMIREZ DO Ot J84.10 PULMONARY FIBROSIS, UNSPECIFIED 05/02/2017 KYREE RAMIREZ DO Ot J44.9 CHRONIC OBSTRUCTIVE PULMONARY DISEASE, U 05/02/2017 KYREE RAMIREZ DO Ot J84.10 PULMONARY FIBROSIS, UNSPECIFIED 05/03/2017 KYREE RAMIREZ DO Ot J44.9 CHRONIC OBSTRUCTIVE PULMONARY DISEASE, U 05/03/2017 KYREE RAMIREZ DO Ot J84.10 PULMONARY FIBROSIS, UNSPECIFIED 05/04/2017 Ot 710.0 SYST LUPUS ERYTHEMATOSIS 05/04/2017 ZULEIMA MARIA, JUSTEN Warner Ot 785.6 ENLARGEMENT LYMPH NODES 05/04/2017 JUSTEN DEWEY MD Ot 786.05 SHORTNESS OF BREATH 05/04/2017 JUSTEN DEWEY MD Ot 793.19 OTHER NONSPECIFIC ABNORMAL FINDING OF DAMIEN 05/04/2017 JUSTEN DEWEY MD Ot 786.05 SHORTNESS OF BREATH 05/04/2017 KYREE RAMIREZ DO Ot V72.84 EXAM PRE-OPERATIVE NOS 05/04/2017 KYREE RAMIREZ DO Ot 305.1 TOBACCO USE DISORDER 05/04/2017 KYREE RAMIREZ DO Ot 515 POSTINFLAM PULM FIBROSIS 05/04/2017 KYREE RAMIREZ DO Ot 786.09 RESPIRATORY ABNORM NEC 05/04/2017 KYREE RAMIREZ DO Ot V13.4 HX OF ARTHRITIS 05/04/2017 Ot V72.84 EXAM PRE- OPERATIVE NOS 05/04/2017 CHATA MARIA, HARMONY Abernathy ([facility]) Ot Z02.71 ENCOUNTER FOR DISABILITY DETERMINATION 05/04/2017 KYREE RAMIREZ DO Ot J44.9 CHRONIC OBSTRUCTIVE PULMONARY DISEASE, U 05/04/2017 KYREE RAMIREZ DO Ot J84.10 PULMONARY FIBROSIS, UNSPECIFIED 05/05/2017 KYREE RAMIREZ DO Ot J44.9 CHRONIC OBSTRUCTIVE PULMONARY DISEASE, U 05/05/2017 KYREE RAMIREZ DO Ot J84.10 PULMONARY FIBROSIS, UNSPECIFIED 05/05/2017 RILEY KIRBY MD, Ot E11.9 TYPE 2 DIABETES MELLITUS WITHOUT COMPLIC 05/05/2017 RILEY KIRBY MD, Ot E66.9 OBESITY, UNSPECIFIED 05/05/2017 RILEY KIRBY MD Ot E86.0 DEHYDRATION 05/05/2017 RILEY KIRBY MD, Ot F17.210 NICOTINE DEPENDENCE, CIGARETTES, UNCOMPL 05/05/2017 RILEY KIRBY MD Ot I10 ESSENTIAL (PRIMARY) HYPERTENSION 05/05/2017 RILEY KIRBY MD, Ot J18.9 PNEUMONIA, UNSPECIFIED ORGANISM 05/05/2017 RILEY KIRBY MD, Ot J44.0 CHRONIC OBSTRUCTIVE PULMON DISEASE W ACU 05/05/2017 RILEY KIRBY MD, Ot J44.1 CHRONIC OBSTRUCTIVE PULMONARY DISEASE W 05/05/2017 RILEY KIRBY MD, Ot L40.9 PSORIASIS, UNSPECIFIED 05/05/2017 RILEY KIRBY MD, Ot M06.9 RHEUMATOID ARTHRITIS, UNSPECIFIED 05/05/2017 RILEY KIRBY MD, Ot R00.0 TACHYCARDIA, UNSPECIFIED 05/05/2017 RILEY KIRBY MD, Ot Z68.34 BODY MASS INDEX (BMI) 34.0-34.9, ADULT 05/05/2017 RILEY KIRBY MD, Ot E11.9 TYPE 2 DIABETES MELLITUS WITHOUT COMPLIC 05/05/2017 RILEY KIRBY MD, Ot E66.9 OBESITY, UNSPECIFIED 05/05/2017 RILEY KIRBY MD Ot E86.0 DEHYDRATION 05/05/2017 RILEY KIRBY MD, Ot F17.210 NICOTINE DEPENDENCE, CIGARETTES, UNCOMPL 05/05/2017 RILEY KIRBY MD, Ot I10 ESSENTIAL (PRIMARY) HYPERTENSION 05/05/2017 RILEY KIRBY MD Ot J18.9 PNEUMONIA, UNSPECIFIED ORGANISM 05/05/2017 RILEY KIRBY MD Ot J44.0 CHRONIC OBSTRUCTIVE PULMON DISEASE W ACU 05/05/2017 RILEY KIRBY MD Ot J44.1 CHRONIC OBSTRUCTIVE PULMONARY DISEASE W 05/05/2017 RILEY KIRBY MD Ot L40.9 PSORIASIS, UNSPECIFIED 05/05/2017 RILEY KIRBY MD, Ot M06.9 RHEUMATOID ARTHRITIS, UNSPECIFIED 05/05/2017 RILEY KIRBY MD Ot R00.0 TACHYCARDIA, UNSPECIFIED 05/05/2017 RILEY KIRBY MD Ot Z68.34 BODY MASS INDEX (BMI) 34.0-34.9, ADULT 05/05/2017 RILEY KIRBY MD Ot E11.9 TYPE 2 DIABETES MELLITUS WITHOUT COMPLIC 05/05/2017 RILEY KIRBY MD Ot E66.9 OBESITY, UNSPECIFIED 05/05/2017 RILEY KIRBY MD Ot E86.0 DEHYDRATION 05/05/2017 RILEY KIRBY MD Ot F17.210 NICOTINE DEPENDENCE, CIGARETTES, UNCOMPL 05/05/2017 RILEY KIRBY MD, Ot I10 ESSENTIAL (PRIMARY) HYPERTENSION 05/05/2017 RILEY IKRBY MD Ot J18.9 PNEUMONIA, UNSPECIFIED ORGANISM 05/05/2017 RILEY KIRBY MD, Ot J44.0 CHRONIC OBSTRUCTIVE PULMON DISEASE W ACU 05/05/2017 RILEY KIRBY MD Ot J44.1 CHRONIC OBSTRUCTIVE PULMONARY DISEASE W 05/05/2017 RILEY KIRBY MD, Ot L40.9 PSORIASIS, UNSPECIFIED 05/05/2017 RILEY KIRBY MD, Ot M06.9 RHEUMATOID ARTHRITIS, UNSPECIFIED 05/05/2017 RILEY KIRBY MD Ot R00.0 TACHYCARDIA, UNSPECIFIED 05/05/2017 RILEY KIRBY MD Ot Z68.34 BODY MASS INDEX (BMI) 34.0-34.9, ADULT 05/05/2017 Ot 710.0 SYST LUPUS ERYTHEMATOSIS 05/05/2017 JUSTEN DEWEY MD Ot 785.6 ENLARGEMENT LYMPH NODES 05/05/2017 JUSTEN DEWEY MD Ot 786.05 SHORTNESS OF BREATH 05/05/2017 JUSTEN DEWEY MD Ot 793.19 OTHER NONSPECIFIC ABNORMAL FINDING OF DAMIEN 05/05/2017 JUSTEN DEWEY MD Ot 786.05 SHORTNESS OF BREATH 05/05/2017 KYREE RAMIREZ DO Ot V72.84 EXAM PRE-OPERATIVE NOS 05/05/2017 KYREE RAMIREZ DO Ot 305.1 TOBACCO USE DISORDER 05/05/2017 KYREE RAMIREZ DO Ot 515 POSTINFLAM PULM FIBROSIS 05/05/2017 KYREE RAMIREZ DO Ot 786.09 RESPIRATORY ABNORM NEC 05/05/2017 KYREE RAMIREZ DO Ot V13.4 HX OF ARTHRITIS 05/05/2017 Ot V72.84 EXAM PRE- OPERATIVE NOS 05/05/2017 CHATA MARIA, HARMONY Abernathy ([facility]) Ot Z02.71 ENCOUNTER FOR DISABILITY DETERMINATION 05/05/2017 KYREE RAMIREZ DO Ot J44.9 CHRONIC OBSTRUCTIVE PULMONARY DISEASE, U 05/05/2017 KYREE RAMIREZ DO Ot J84.10 PULMONARY FIBROSIS, UNSPECIFIED 05/05/2017 RILEY KIRBY MD Ot E11.9 TYPE 2 DIABETES MELLITUS WITHOUT COMPLIC 05/05/2017 RILEY KIRBY MD, Ot E66.9 OBESITY, UNSPECIFIED 05/05/2017 RILEY KIRBY MD Ot E86.0 DEHYDRATION 05/05/2017 RILEY KIRBY MD, Ot F17.210 NICOTINE DEPENDENCE, CIGARETTES, UNCOMPL 05/05/2017 RILEY KIRBY MD Ot I10 ESSENTIAL (PRIMARY) HYPERTENSION 05/05/2017 RILEY KIRBY MD, Ot J18.9 PNEUMONIA, UNSPECIFIED ORGANISM 05/05/2017 RILEY KIRBY MD, Ot J44.0 CHRONIC OBSTRUCTIVE PULMON DISEASE W ACU 05/05/2017 RILEY KIRBY MD, Ot J44.1 CHRONIC OBSTRUCTIVE PULMONARY DISEASE W 05/05/2017 RILEY KIRBY MD, Ot L40.9 PSORIASIS, UNSPECIFIED 05/05/2017 RILEY KIRBY MD, Ot M06.9 RHEUMATOID ARTHRITIS, UNSPECIFIED 05/05/2017 RILEY KIRBY MD, Ot R00.0 TACHYCARDIA, UNSPECIFIED 05/05/2017 RILEY KIRBY MD, Ot Z68.34 BODY MASS INDEX (BMI) 34.0-34.9, ADULT 05/06/2017 RILEY KIRBY MD, Ot A41.9 SEPSIS, UNSPECIFIED ORGANISM 05/06/2017 RILEY KIRBY MD Ot E11.9 TYPE 2 DIABETES MELLITUS WITHOUT COMPLIC 05/06/2017 RILEY KIRBY MD, Ot E66.9 OBESITY, UNSPECIFIED 05/06/2017 RILEY KIRBY MD Ot E86.0 DEHYDRATION 05/06/2017 RILEY KIRBY MD, Ot F17.210 NICOTINE DEPENDENCE, CIGARETTES, UNCOMPL 05/06/2017 RILEY KIRBY MD Ot I10 ESSENTIAL (PRIMARY) HYPERTENSION 05/06/2017 RILEY KIRBY MD, Ot J18.9 PNEUMONIA, UNSPECIFIED ORGANISM 05/06/2017 RILEY KIRBY MD, Ot J44.0 CHRONIC OBSTRUCTIVE PULMON DISEASE W ACU 05/06/2017 RILEY KIRBY MD, Ot J44.1 CHRONIC OBSTRUCTIVE PULMONARY DISEASE W 05/06/2017 RILEY KIRBY MD, Ot 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 05/06/2017 RILEY KIRBY MD Ot L40.9 PSORIASIS, UNSPECIFIED 05/06/2017 RILEY KIRBY MD, Ot M06.9 RHEUMATOID ARTHRITIS, UNSPECIFIED 05/06/2017 RILEY KIRBY MD Ot R00.0 TACHYCARDIA, UNSPECIFIED 05/06/2017 RILEY KIRBY MD Ot Z68.34 BODY MASS INDEX (BMI) 34.0-34.9, ADULT 05/08/2017 KYREE RAMIREZ DO Ot J44.9 CHRONIC OBSTRUCTIVE PULMONARY DISEASE, U 05/08/2017 KYREE RAMIREZ DO Ot J84.10 PULMONARY FIBROSIS, UNSPECIFIED 05/08/2017 Ot 710.0 SYST LUPUS ERYTHEMATOSIS 05/08/2017 JUSTEN DEWEY MD Ot 785.6 ENLARGEMENT LYMPH NODES 05/08/2017 JUSTEN DEWEY MD Ot 786.05 SHORTNESS OF BREATH 05/08/2017 JUSTEN DEWEY MD Ot 793.19 OTHER NONSPECIFIC ABNORMAL FINDING OF DAMIEN 05/08/2017 JUSTEN DEWEY MD Ot 786.05 SHORTNESS OF BREATH 05/08/2017 KYREE RAMIREZ DO Ot V72.84 EXAM PRE-OPERATIVE NOS 05/08/2017 KYREE RAMIREZ DO Ot 305.1 TOBACCO USE DISORDER 05/08/2017 KYREE RAMIREZ DO Ot 515 POSTINFLAM PULM FIBROSIS 05/08/2017 KYREE RAMIREZ DO Ot 786.09 RESPIRATORY ABNORM NEC 05/08/2017 KYREE RAMIREZ DO Ot V13.4 HX OF ARTHRITIS 05/08/2017 Ot V72.84 EXAM PRE- OPERATIVE NOS 05/08/2017 CHATA MARIA, HARMONY Abernathy ([facility]) Ot Z02.71 ENCOUNTER FOR DISABILITY DETERMINATION 05/08/2017 KYREE RAMIREZ DO Ot J44.9 CHRONIC OBSTRUCTIVE PULMONARY DISEASE, U 05/08/2017 KYREE RAMIREZ DO Ot J84.10 PULMONARY FIBROSIS, UNSPECIFIED 06/08/2017 KYREE RAMIREZ DO, Ot J44.9 CHRONIC OBSTRUCTIVE PULMONARY DISEASE, U 06/08/2017 KYREE RAMIREZ DO Ot J84.10 PULMONARY FIBROSIS, UNSPECIFIED 07/31/2017 KYREE RAMIREZ DO Ot J44.9 CHRONIC OBSTRUCTIVE PULMONARY DISEASE, U 07/31/2017 KYREE RAMIREZ DO Ot J84.10 PULMONARY FIBROSIS, UNSPECIFIED 08/02/2017 KYREE RAMIREZ DO Ot J44.9 CHRONIC OBSTRUCTIVE PULMONARY DISEASE, U 08/02/2017 KYREE RAMIREZ DO Ot J84.10 PULMONARY FIBROSIS, UNSPECIFIED 12/21/2017 JOHANNE DE LOS SANTOS APRN Ot E11.9 TYPE 2 DIABETES MELLITUS WITHOUT COMPLIC 12/21/2017 JOHANNE DE LOS SANTOS APRN Ot F17.210 NICOTINE DEPENDENCE, CIGARETTES, UNCOMPL 12/21/2017 JOHANNE DE LOS SANTOS APRN Ot I10 ESSENTIAL (PRIMARY) HYPERTENSION 12/21/2017 JOHANNE DE LOS SANTOS APRN Ot J18.9 PNEUMONIA, UNSPECIFIED ORGANISM 12/21/2017 JOHANNE DE LOS SANTOS APRN Ot J44.1 CHRONIC OBSTRUCTIVE PULMONARY DISEASE W 12/21/2017 JOHANNE DE LOS SANTOS APRN Ot M06.9 RHEUMATOID ARTHRITIS, UNSPECIFIED 12/21/2017 JOHANNE DE LOS SANTOS APRN Ot R05 COUGH 12/21/2017 JOHANNE DE LOS SANTOS APRN Ot Z79.51 LONGTERM (CURRENT) USE OF INHALED STERO 12/21/2017 JOHANNE DE LOS SANTOS APRN Ot Z79.84 LONGTERM (CURRENT) USE OF ORAL HYPOGLYC 12/25/2017 JOHANNE DE LOS SANTOS APRN Ot E11.9 TYPE 2 DIABETES MELLITUS WITHOUT COMPLIC 12/25/2017 JOHANNE DE LOS SANTOS SOCIAL RESEARCH ASSISTANT Ot F17.210 NICOTINE DEPENDENCE, CIGARETTES, UNCOMPL 12/25/2017 JOHANNE DE LOS SANTOS SOCIAL RESEARCH ASSISTANT Ot I10 ESSENTIAL (PRIMARY) HYPERTENSION 12/25/2017 JHOANNE DE LOS SANTOS SOCIAL RESEARCH ASSISTANT Ot J18.9 PNEUMONIA, UNSPECIFIED ORGANISM 12/25/2017 JOHANNE DE LOS SANTOS APRN Ot J44.1 CHRONIC OBSTRUCTIVE PULMONARY DISEASE W 12/25/2017 JOHANNE DE LOS SANTOS APRN Ot M06.9 RHEUMATOID ARTHRITIS, UNSPECIFIED 12/25/2017 JOHANNE DE LOS SANTOS APRN Ot R05 COUGH 12/25/2017 JOHANNE DE LOS SANTOS APRN Ot Z79.51 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 INHALED STERO 12/25/2017 JOHANNE DE LOS SANTOS APRN Ot Z79.84 LABEL 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 ORAL HYPOGLYC Procedures Code [place] [address] ROUTINE VENIPUNCTURE 06/27/2012 60233 UA LONG DIP 06/27/2012 45027 A1C (IN-HOUSE) 06/27/2012 24027 ESR/SED RATE 06/27/2012 95814 CBC 06/27/2012 30557 LIPID PANEL 06/27/2012 16909 CMP 06/27/2012 [id number] GFR CALC (RESULT ONLY) 06/27/2012 94423 CRP 06/28/2012 97690 C 3 COMPLEMENT SERUM 06/28/2012 33184 C 4 COMPLEMENT SERUM 06/28/2012 75775 SCLERODERMA AB (SCL 70) 06/28/2012 60173 CCP ANTIBODY 06/29/2012 99329 SM ANTIBODY (ANTI ENG) 06/29/2012 96168 XRAY WRIST RIGHT 2 VIEWS 08/05/2012 32405 XRAY HAND VERONA 2 VIEWS 08/05/2012 05248 A1C (IN-HOUSE) 09/19/2012 87737 A1C (IN-HOUSE) 01/08/2013 30847 ROUTINE VENIPUNCTURE 03/25/2013 26428 A1C (IN-HOUSE) 03/25/2013 88931 CBC 03/25/2013 67824 LIPID PANEL 03/25/2013 86489 CMP 03/25/2013 [id number] GFR CALC (RESULT ONLY) 03/25/2013 92412 ROUTINE VENIPUNCTURE 04/15/2013 14950 LIPID PANEL 04/15/2013 08949 ROUTINE VENIPUNCTURE 06/13/2013 93094 CBC 06/13/2013 [id number] GFR CALC (RESULT ONLY) 06/13/2013 13547 CMP 06/13/2013 05674 ROUTINE VENIPUNCTURE 09/12/2013 99877 OXIMETRY 09/12/2013 Pulmonary Kyree Ramirez 09/12/2013 10523 MICRO ALBUMIN-IN HOUSE 09/12/2013 95069 A1C (IN-HOUSE) 09/12/2013 64267 CBC 09/12/2013 1421249 GFR CALC (RESULT ONLY) 09/12/2013 38680 CMP 09/12/[address] CHEST W/DYE 09/16/2013 12949 PULMONARY FUNCTION TEST 09/18/2013 NICKY YATES 11/14/2013 12398 ROUTINE VENIPUNCTURE 01/24/2014 46509 LIPID PANEL 01/24/2014 90531 A1C (IN-HOUSE) 02/18/2014 72456 XRAY ELBOW L 2 VIEWS 07/03/2014 GENERAL S ROHITH WALKER 07/10/2014 04425 OXIMETRY 08/12/2014 NICKY YATES 08/12/2014 21412 MICRO ALBUMIN-IN HOUSE 10/21/2014 04697 PULMONARY FUNCTION TEST (IN- HOUSE) 11/13/2014 65767 RESPIRATORY FLOW VOLUME LOOP 11/13/2014 G0437 TOBACCO-USE FINISH SPECIALIST>10MIN 11/13/2014 Results Test Result Range Complete blood count (CBC) with automated white blood cell (WBC) differential - 08/03/16 11:12 Blood leukocytes automated count (number/volume) 14.3 10*3/uL 4.3-11.0 Blood erythrocytes automated count (number/volume) 4.69 10*6/uL 4.35-5.85 Venous blood hemoglobin measurement (mass/volume) 14.3 g/dL 13.3-17.7 Blood hematocrit (volume fraction) 42 % 40-54 Automated erythrocyte mean corpuscular volume 90 [foz_us] 80-99 Automated erythrocyte mean corpuscular hemoglobin (mass per erythrocyte) 31 pg 25-34 Automated erythrocyte mean corpuscular hemoglobin concentration measurement ( mass/volume) 34 g/dL 32-36 Automated erythrocyte distribution width ratio 12.6 % 10.0-14.5 Automated blood platelet count (count/volume) 209 10*3/uL 130-400 Automated blood platelet mean volume measurement 10.6 [foz_us] 7.4-10.4 Automated blood neutrophils/100 leukocytes 87 % 42-75 Automated blood lymphocytes/100 leukocytes 8 % 12-44 Blood monocytes/100 leukocytes 4 % 0-12 Automated blood eosinophils/100 leukocytes 0 % 0-10 Automated blood basophils/100 leukocytes 0 % 0-10 Blood neutrophils automated count (number/volume) 12.5 10*3 1.8-7.8 Blood lymphocytes automated count (number/volume) 1.1 10*3 1.0-4.0 Blood monocytes automated count (number/volume) 0.6 10*3 0.0-1.0 Automated eosinophil count 0.0 10*3/uL 0.0-0.3 Automated blood basophil count (count/volume) 0.0 10*3/uL 0.0-0.1 Blood manual differential performed detection - 08/03/16 11:12 Blood monocytes/100 leukocytes 5 % NRG Manual blood segmented neutrophils/100 leukocytes 83 % NRG Blood band neutrophils/100 leukocytes 2 % NRG Manual blood lymphocytes/100 leukocytes 10 % NRG Manual eosinophils/100 leukocytes in nose 0 % NRG Manual blood basophils/100 leukocytes 0 % NRG Blood erythrocyte morphology finding identification NORMAL [facility] Comprehensive metabolic panel - 08/03/16 11:12 Serum or plasma sodium measurement (moles/volume) 137 mmol/L 135-145 Serum or plasma potassium measurement (moles/volume) 3.5 mmol/L 3.6-5.0 Serum or plasma chloride measurement (moles/volume) 104 mmol/L 98-107 Carbon dioxide 20 mmol/L 21-32 Serum or plasma anion gap determination (moles/volume) 13 mmol/L 5-14 Serum or plasma urea nitrogen measurement (mass/volume) 19 mg/dL 7-18 Serum or plasma creatinine measurement (mass/volume) 0.81 mg/dL 0.60-1.30 Serum or plasma urea nitrogen/creatinine mass ratio 23 NRG Serum or plasma creatinine measurement with calculation of estimated glomerular filtration rate > NRG Serum or plasma glucose measurement (mass/volume) 205 mg/dL 70-105 Serum or plasma calcium measurement (mass/volume) 9.0 mg/dL 8.5-10.1 Serum or plasma total bilirubin measurement (mass/volume) 0.4 mg/dL 0.1-1.0 Serum or plasma alkaline phosphatase measurement (enzymatic activity/volume) 78 U/L 40-136 Serum or plasma aspartate aminotransferase measurement (enzymatic activity/ volume) 22 U/L 5-34 Serum or plasma alanine aminotransferase measurement (enzymatic activity/volume ) 41 U/L 0-55 Serum or plasma protein measurement (mass/volume) 7.3 g/dL 6.4-8.2 Serum or plasma albumin measurement (mass/volume) 3.7 g/dL 3.2-4.5 Bacterial blood culture - 08/03/16 11:12 Bacterial blood culture NG NRG Bacterial blood culture - 08/03/16 11:12 Bacterial blood culture NG NRG Blood lactic acid measurement (moles/volume) - 08/03/16 11:48 Blood lactic acid measurement (moles/volume) 3.1 mmol/L 0.5-2.0 Serum or plasma lactate measurement (moles/volume) - 08/03/16 14:10 Serum or plasma lactate measurement (moles/volume) 2.8 mmol/L 0.5-2.0 Capillary blood glucose measurement by glucometer (mass/volume) - 08/03/16 15: 27 Capillary blood glucose measurement by glucometer (mass/volume) 218 mg/dL 70-110 Capillary blood glucose measurement by glucometer (mass/volume) - 08/03/16 19: 01 Capillary blood glucose measurement by glucometer (mass/volume) 219 mg/dL 70-110 Capillary blood glucose measurement by glucometer (mass/volume) - 08/04/16 04: 53 Capillary blood glucose measurement by glucometer (mass/volume) 222 mg/dL 70-110 Capillary blood glucose measurement by glucometer (mass/volume) - 08/04/16 10: 21 Capillary blood glucose measurement by glucometer (mass/volume) 316 mg/dL 70-110 Capillary blood glucose measurement by glucometer (mass/volume) - 08/04/16 14: 39 Capillary blood glucose measurement by glucometer (mass/volume) 315 mg/dL 70-110 Capillary blood glucose measurement by glucometer (mass/volume) - 08/04/16 19: 23 Capillary blood glucose measurement by glucometer (mass/volume) 297 mg/dL 70-110 Complete blood count (CBC) with automated white blood cell (WBC) differential - 08/05/16 04:34 Blood leukocytes automated count (number/volume) 13.7 10*3/uL 4.3-11.0 Blood erythrocytes automated count (number/volume) 4.14 10*6/uL 4.35-5.85 Venous blood hemoglobin measurement (mass/volume) 12.8 g/dL 13.3-17.7 Blood hematocrit (volume fraction) 38 % 40-54 Automated erythrocyte mean corpuscular volume 91 [foz_us] 80-99 Automated erythrocyte mean corpuscular hemoglobin (mass per erythrocyte) 31 pg 25-34 Automated erythrocyte mean corpuscular hemoglobin concentration measurement ( mass/volume) 34 g/dL 32-36 Automated erythrocyte distribution width ratio 12.5 % 10.0-14.5 Automated blood platelet count (count/volume) 234 10*3/uL 130-400 Automated blood platelet mean volume measurement 10.6 [foz_us] 7.4-10.4 Automated blood neutrophils/100 leukocytes 88 % 42-75 Automated blood lymphocytes/100 leukocytes 9 % 12-44 Blood monocytes/100 leukocytes 4 % 0-12 Automated blood eosinophils/100 leukocytes 0 % 0-10 Automated blood basophils/100 leukocytes 0 % 0-10 Blood neutrophils automated count (number/volume) 12.0 10*3 1.8-7.8 Blood lymphocytes automated count (number/volume) 1.2 10*3 1.0-4.0 Blood monocytes automated count (number/volume) 0.5 10*3 0.0-1.0 Automated eosinophil count 0.0 10*3/uL 0.0-0.3 Automated blood basophil count (count/volume) 0.0 10*3/uL 0.0-0.1 Whole blood basic metabolic panel - 08/05/16 04:34 Serum or plasma sodium measurement (moles/volume) 137 mmol/L 135-145 Serum or plasma potassium measurement (moles/volume) 4.1 mmol/L 3.6-5.0 Serum or plasma chloride measurement (moles/volume) 107 mmol/L 98-107 Carbon dioxide 20 mmol/L 21-32 Serum or plasma anion gap determination (moles/volume) 10 mmol/L 5-14 Serum or plasma urea nitrogen measurement (mass/volume) 26 mg/dL 7-18 Serum or plasma creatinine measurement (mass/volume) 0.76 mg/dL 0.60-1.30 Serum or plasma urea nitrogen/creatinine mass ratio 34 NRG Serum or plasma creatinine measurement with calculation of estimated glomerular filtration rate > NRG Serum or plasma glucose measurement (mass/volume) 262 mg/dL 70-105 Serum or plasma calcium measurement (mass/volume) 8.3 mg/dL 8.5-10.1 Blood lactic acid measurement (moles/volume) - 08/05/16 04:34 Blood lactic acid measurement (moles/volume) 3.1 mmol/L 0.5-2.0 Hemoglobin A1c - 08/05/16 04:34 Hemoglobin A1c 7.6 % 4.5-6.2 Serum or plasma lactate measurement (moles/volume) - 08/05/16 06:57 Serum or plasma lactate measurement (moles/volume) 2.9 mmol/L 0.5-2.0 Arterial blood gas measurement - 08/05/16 09:34 Blood pCO2 30 mm[Hg] 35-45 Blood pO2 64 mm[Hg] 79-93 Arterial blood bicarbonate measurement (moles/volume) 18 mmol/L 23-27 Arterial blood base excess by calculation -6.1 mmol/L - 2.5-2.5 Arterial blood oxygen saturation measurement 93 % 94-100 * Inhaled oxygen flow rate RA NRG Arterial blood pH measurement with patient temperature correction 7.39 7.37-7.43 Arterial blood carbon dioxide, total measurement (moles/volume) 18.7 mmol/L 21.0-31.0 Body site L RAD NRG Assessment of wrist artery patency prior to arterial puncture YES- POS NRG Setting of ventilation mode YES NRG Measurement of body temperature 98.1 NRG Capillary blood glucose measurement by glucometer (mass/volume) - 08/05/16 09: 38 Capillary blood glucose measurement by glucometer (mass/volume) 271 mg/dL 70-110 Capillary blood glucose measurement by glucometer (mass/volume) - 08/05/16 13: 23 Capillary blood glucose measurement by glucometer (mass/volume) 295 mg/dL 70-110 CBC With Differential/Platelet - 12/28/16 09:29 WBC 10.7 x10E3/uL 3.4-10.8 RBC 5.36 x10E6/uL 4.14-5.80 Hemoglobin 15.8 g/dL 12.6-17.7 Hematocrit 48.1 % 37.5-51.0 MCV 90 fL 79-97 MCH 29.5 pg 26.6-33.0 MCHC 32.8 g/dL 31.5-35.7 RDW 13.1 % 12.3-15.4 Platelets 286 x10E3/uL 150-379 Neutrophils 64 % Lymphs 21 % Monocytes 8 % Eos 6 % Basos 1 % Neutrophils (Absolute) 6.9 x10E3/uL 1.4-7.0 Lymphs (Absolute) 2.3 x10E3/uL 0.7-3.1 Monocytes(Absolute) 0.8 x10E3/uL 0.1-0.9 Eos (Absolute) 0.7 x10E3/uL 0.0-0.4 Baso (Absolute) 0.1 x10E3/uL 0.0-0.2 Immature Granulocytes 0 % Immature Grans (Abs) 0.0 x10E3/uL 0.0-0.1 Comp. Metabolic Panel (14) - 12/28/16 09:29 Glucose, Serum 84 mg/dL 65-99 BUN 23 mg/dL 6-24 Creatinine, Serum 0.85 mg/dL 0.76-1.27 eGFR If NonAfricn Am 95 mL/min/1.73 >59 eGFR If Africn Am 110 mL/min/1.73 >59 BUN/Creatinine Ratio 27 9-20 Sodium, Serum 142 mmol/L 134-144 Potassium, Serum 4.4 mmol/L 3.5-5.2 Chloride, Serum 101 mmol/L 96-106 Carbon Dioxide, Total 22 mmol/L 18-29 Calcium, Serum 9.6 mg/dL 8.7-10.2 Protein, Total, Serum 7.6 g/dL 6.0-8.5 Albumin, Serum 4.3 g/dL 3.5-5.5 Globulin, Total 3.3 g/dL 1.5-4.5 A/G Ratio 1.3 1.2-2.2 Bilirubin, Total 0.3 mg/dL 0.0-1.2 Alkaline Phosphatase, S 90 IU/L 39-117 AST (SGOT) 18 IU/L 0-40 ALT (SGPT) 24 IU/L 0-44 Antinuclear Ab Reflex Grant - 12/28/16 09:29 MALDONADO Direct Negative Negative See below: Comment Rheumatoid Arthritis Factor - 12/28/16 09:29 RA Latex Turbid. >650.0 IU/mL 0.0-13.9 CCP Antibodies IgG/IgA - 12/28/16 09:29 CCP Antibodies IgG/IgA 42 units 0-19 Sedimentation Rate-Westergren - 12/28/16 09:29 [facility] 0-30 C-Reactive Protein, Quant - 12/28/16 09:29 C-Reactive Protein, Quant 6.6 mg/L 0.0-4.9 Complete blood count (CBC) with automated white blood cell (WBC) differential - 04/19/17 12:23 Blood leukocytes automated count (number/volume) 16.1 10*3/uL 4.3-11.0 Blood erythrocytes automated count (number/volume) 4.56 10*6/uL 4.35-5.85 Venous blood hemoglobin measurement (mass/volume) 14.0 g/dL 13.3-17.7 Blood hematocrit (volume fraction) 42 % 40-54 Automated erythrocyte mean corpuscular volume 92 [foz_us] 80-99 Automated erythrocyte mean corpuscular hemoglobin (mass per erythrocyte) 31 pg 25-34 Automated erythrocyte mean corpuscular hemoglobin concentration measurement ( mass/volume) 33 g/dL 32-36 Automated erythrocyte distribution width ratio 13.9 % 10.0-14.5 Automated blood platelet count (count/volume) 284 10*3/uL 130-400 Automated blood platelet mean volume measurement 10.5 [foz_us] 7.4-10.4 Automated blood neutrophils/100 leukocytes 75 % 42-75 Automated blood lymphocytes/100 leukocytes 11 % 12-44 Blood monocytes/100 leukocytes 12 % 0-12 Automated blood eosinophils/100 leukocytes 1 % 0-10 Automated blood basophils/100 leukocytes 0 % 0-10 Blood neutrophils automated count (number/volume) 12.1 10*3 1.8-7.8 Blood lymphocytes automated count (number/volume) 1.8 10*3 1.0-4.0 Blood monocytes automated count (number/volume) 2.0 10*3 0.0-1.0 Automated eosinophil count 0.2 10*3/uL 0.0-0.3 Automated blood basophil count (count/volume) 0.1 10*3/uL 0.0-0.1 Comprehensive metabolic panel - 04/19/17 12:23 Serum or plasma sodium measurement (moles/volume) 132 mmol/L 135-145 Serum or plasma potassium measurement (moles/volume) 3.7 mmol/L 3.6-5.0 Serum or plasma chloride measurement (moles/volume) 102 mmol/L 98-107 Carbon dioxide 23 mmol/L 21-32 Serum or plasma anion gap determination (moles/volume) 7 mmol/L 5-14 Serum or plasma urea nitrogen measurement (mass/volume) 18 mg/dL 7-18 Serum or plasma creatinine measurement (mass/volume) 0.87 mg/dL 0.60-1.30 Serum or plasma urea nitrogen/creatinine mass ratio 21 NRG Serum or plasma creatinine measurement with calculation of estimated glomerular filtration rate > NRG Serum or plasma glucose measurement (mass/volume) 212 mg/dL 70-105 Serum or plasma calcium measurement (mass/volume) 8.9 mg/dL 8.5-10.1 Serum or plasma total bilirubin measurement (mass/volume) 1.1 mg/dL 0.1-1.0 Serum or plasma alkaline phosphatase measurement (enzymatic activity/volume) 84 U/L 40-136 Serum or plasma aspartate aminotransferase measurement (enzymatic activity/ volume) 11 U/L 5-34 Serum or plasma alanine aminotransferase measurement (enzymatic activity/volume ) 33 U/L 0-55 Serum or plasma protein measurement (mass/volume) 7.5 g/dL 6.4-8.2 Serum or plasma albumin measurement (mass/volume) 3.7 g/dL 3.2-4.5 Magnesium - 04/19/17 12:23 Magnesium 1.5 mg/dL 1.8-2.4 Serum or plasma troponin i.cardiac measurement (mass/volume) - 04/19/17 12:23 Serum or plasma troponin i.cardiac measurement (mass/volume) < ng/ mL <0.30 Serum or plasma lithium measurement (moles/volume) - 04/19/17 12:23 BNP level 40.3 pg/mL <100.0 PT panel in platelet poor plasma by coagulation assay - 04/19/17 12:23 Prothrombin time (PT) in platelet poor plasma by coagulation assay 13.7 s 12.2-14.7 INR in platelet poor plasma or blood by coagulation assay 1.0 0.8-1.4 Activated partial thromboplastin time (aPTT) in platelet poor plasma bycoagulation assay - 04/19/17 12:23 Activated partial thromboplastin time (aPTT) in platelet poor plasma bycoagulation assay 30 s 24-35 Myoglobin, serum - 04/19/17 12:23 Myoglobin, serum 49.6 ng/mL 10.0-92.0 Blood manual differential performed detection - 04/19/17 12:23 Blood monocytes/100 leukocytes 7 % NRG Manual blood segmented neutrophils/100 leukocytes 77 % NRG Manual blood lymphocytes/100 leukocytes 10 % NRG Manual eosinophils/100 leukocytes in nose 2 % NRG Manual blood basophils/100 leukocytes 2 % NRG Blood lymphocytes variant/100 leukocytes 2 % NRG Blood erythrocyte morphology finding identification NORMAL NRG CMP - 04/28/17 08:52 Glucose, Serum 183 mg/dL 65-99 BUN 18 mg/dL 6-24 Creatinine, Serum 0.67 mg/dL 0.76-1.27 eGFR If NonAfricn Am 105 mL/min/1.73 >59 eGFR If Africn Am 122 mL/min/1.73 >59 BUN/Creatinine Ratio 27 9-20 Sodium, Serum 140 mmol/L 134-144 Potassium, Serum 4.1 mmol/L 3.5-5.2 Chloride, Serum 101 mmol/L 96-106 Carbon Dioxide, Total 25 mmol/L 18-29 Calcium, Serum 8.6 mg/dL 8.7-10.2 Protein, Total, Serum 6.3 g/dL 6.0-8.5 Albumin, Serum 3.5 g/dL 3.5-5.5 Globulin, Total 2.8 g/dL 1.5-4.5 A/G Ratio 1.3 1.2-2.2 Bilirubin, Total 0.3 mg/dL 0.0-1.2 Alkaline Phosphatase, S 74 IU/L 39-117 AST (SGOT) 14 IU/L 0-40 ALT (SGPT) 34 IU/L 0-44 CBC With Differential/Platelet - 04/28/17 08:52 WBC 12.8 x10E3/uL 3.4-10.8 RBC 4.17 x10E6/uL 4.14-5.80 Hemoglobin 13.0 g/dL 12.6-17.7 Hematocrit 39.0 % 37.5-51.0 MCV 94 fL 79-97 MCH 31.2 pg 26.6-33.0 MCHC 33.3 g/dL 31.5-35.7 RDW 13.7 % 12.3-15.4 Platelets 374 x10E3/uL 150-379 Neutrophils 66 % Lymphs 24 % Monocytes 7 % Eos 2 % Basos 0 % Neutrophils (Absolute) 8.4 x10E3/uL 1.4-7.0 Lymphs (Absolute) 3.1 x10E3/uL 0.7-3.1 Monocytes(Absolute) 1.0 x10E3/uL 0.1-0.9 Eos (Absolute) 0.2 x10E3/uL 0.0-0.4 Baso (Absolute) 0.0 x10E3/uL 0.0-0.2 Immature Granulocytes 1 % Immature Grans (Abs) 0.1 x10E3/uL 0.0-0.1 Comp. Metabolic Panel (14) - 04/28/17 08:52 Glucose, Serum 183 mg/dL 65-99 BUN 18 mg/dL 6-24 Creatinine, Serum 0.67 mg/dL 0.76-1.27 eGFR If NonAfricn Am 105 mL/min/1.73 >59 eGFR If Africn Am 122 mL/min/1.73 >59 BUN/Creatinine Ratio 27 9-20 Sodium, Serum 140 mmol/L 134-144 Potassium, Serum 4.1 mmol/L 3.5-5.2 Chloride, Serum 101 mmol/L 96-106 Carbon Dioxide, Total 25 mmol/L 18-29 Calcium, Serum 8.6 mg/dL 8.7-10.2 Protein, Total, Serum 6.3 g/dL 6.0-8.5 Albumin, Serum 3.5 g/dL 3.5-5.5 Globulin, Total 2.8 g/dL 1.5-4.5 A/G Ratio 1.3 1.2-2.2 Bilirubin, Total 0.3 mg/dL 0.0-1.2 Alkaline Phosphatase, S 74 IU/L 39-117 AST (SGOT) 14 IU/L 0-40 ALT (SGPT) 34 IU/L 0-44 Lipid Panel - 04/28/17 08:52 Cholesterol, Total 137 mg/dL 100-199 Triglycerides 76 mg/dL 0-149 HDL Cholesterol 29 mg/dL >39 VLDL Cholesterol Magno 15 mg/dL 5-40 LDL Cholesterol Calc 93 mg/dL 0-99 TSH - 04/28/17 08:52 TSH 2.190 uIU/mL 0.450-4.500 Complete blood count (CBC) with automated white blood cell (WBC) differential - 05/04/17 10:10 Blood leukocytes automated count (number/volume) 18.8 10*3/uL 4.3-11.0 Blood erythrocytes automated count (number/volume) 4.30 10*6/uL 4.35-5.85 Venous blood hemoglobin measurement (mass/volume) 13.1 g/dL 13.3-17.7 Blood hematocrit (volume fraction) 40 % 40-54 Automated erythrocyte mean corpuscular volume 92 [foz_us] 80-99 Automated erythrocyte mean corpuscular hemoglobin (mass per erythrocyte) 31 pg 25-34 Automated erythrocyte mean corpuscular hemoglobin concentration measurement ( mass/volume) 33 g/dL 32-36 Automated erythrocyte distribution width ratio 13.2 % 10.0-14.5 Automated blood platelet count (count/volume) 339 10*3/uL 130-400 Automated blood platelet mean volume measurement 10.3 [foz_us] 7.4-10.4 Automated blood neutrophils/100 leukocytes 84 % 42-75 Automated blood lymphocytes/100 leukocytes 7 % 12-44 Blood monocytes/100 leukocytes 6 % 0-12 Automated blood eosinophils/100 leukocytes 2 % 0-10 Automated blood basophils/100 leukocytes 0 % 0-10 Blood neutrophils automated count (number/volume) 15.9 10*3 1.8-7.8 Blood lymphocytes automated count (number/volume) 1.2 10*3 1.0-4.0 Blood monocytes automated count (number/volume) 1.2 10*3 0.0-1.0 Automated eosinophil count 0.5 10*3/uL 0.0-0.3 Automated blood basophil count (count/volume) 0.1 10*3/uL 0.0-0.1 Comprehensive metabolic panel - 05/04/17 10:10 Serum or plasma sodium measurement (moles/volume) 133 mmol/L 135-145 Serum or plasma potassium measurement (moles/volume) 4.2 mmol/L 3.6-5.0 Serum or plasma chloride measurement (moles/volume) 102 mmol/L 98-107 Carbon dioxide 22 mmol/L 21-32 Serum or plasma anion gap determination (moles/volume) 9 mmol/L 5-14 Serum or plasma urea nitrogen measurement (mass/volume) 15 mg/dL 7-18 Serum or plasma creatinine measurement (mass/volume) 0.89 mg/dL 0.60-1.30 Serum or plasma urea nitrogen/creatinine mass ratio 17 NRG Serum or plasma creatinine measurement with calculation of estimated glomerular filtration rate > NRG Serum or plasma glucose measurement (mass/volume) 262 mg/dL 70-105 Serum or plasma calcium measurement (mass/volume) 9.0 mg/dL 8.5-10.1 Serum or plasma total bilirubin measurement (mass/volume) 0.8 mg/dL 0.1-1.0 Serum or plasma alkaline phosphatase measurement (enzymatic activity/volume) 83 U/L 40-136 Serum or plasma aspartate aminotransferase measurement (enzymatic activity/ volume) 12 U/L 5-34 Serum or plasma alanine aminotransferase measurement (enzymatic activity/volume ) 17 U/L 0-55 Serum or plasma protein measurement (mass/volume) 7.4 g/dL 6.4-8.2 Serum or plasma albumin measurement (mass/volume) 3.3 g/dL 3.2-4.5 Blood manual differential performed detection - 05/04/17 10:10 Blood monocytes/100 leukocytes 6 % NRG Manual blood segmented neutrophils/100 leukocytes 83 % NRG Blood band neutrophils/100 leukocytes 2 % NRG Manual blood lymphocytes/100 leukocytes 7 % NRG Manual eosinophils/100 leukocytes in nose 2 % NRG Manual blood basophils/100 leukocytes 0 % NRG Blood erythrocyte morphology finding identification NORMAL NR Blood lactic acid measurement (moles/volume) - 05/04/17 14:42 Blood lactic acid measurement (moles/volume) 2.72 mmol/L 0.50-2.00 Serum or plasma lithium measurement (moles/volume) - 05/04/17 14:42 BNP level 38.4 pg/mL <100.0 Bacterial blood culture - 05/04/17 14:42 Bacterial blood culture NG NR Bacterial blood culture - 05/04/17 14:53 Bacterial blood culture NG NRG Bacterial blood culture - 05/04/17 15:00 Bacterial blood culture NG NR Arterial blood gas measurement - 05/04/17 15:27 Blood pCO2 33 mm[Hg] 35-45 Blood pO2 62 mm[Hg] 79-93 Arterial blood bicarbonate measurement (moles/volume) 21 mmol/L 23-27 Arterial blood base excess by calculation -3.1 mmol/L - 2.5-2.5 Arterial blood oxygen saturation measurement 93 % 94-100 * Inhaled oxygen flow rate 2 L NRG Arterial blood pH measurement with patient temperature correction 7.41 7.37-7.43 Arterial blood carbon dioxide, total measurement (moles/volume) 21.8 mmol/L 21.0-31.0 Body site LEFT RADIAL NRG Assessment of wrist artery patency prior to arterial puncture POSITIVE NRG Setting of ventilation mode NO NRG Measurement of body temperature 97.7 NRG Complete urinalysis with reflex to culture - 05/04/17 15:41 Urine color determination OBIE NRG Urine clarity determination SLIGHTLY CLOUDY NRG Urine pH measurement by test strip 5 5-9 Specific gravity of urine by test strip 1.025 1.016- 1.022 Urine protein assay by test strip, semi-quantitative 2+ NEGATIVE Urine glucose detection by automated test strip 3+ NEGATIVE Erythrocytes detection in urine sediment by light microscopy NEGATIVE NEGATIVE Urine ketones detection by automated test strip NEGATIVE NEGATIVE Urine nitrite detection by test strip NEGATIVE NEGATIVE Urine total bilirubin detection by test strip NEGATIVE NEGATIVE Urine urobilinogen measurement by automated test strip (mass/volume) 1 mg/dL NORMAL Urine leukocyte esterase detection by dipstick 1+ NEGATIVE Automated urine sediment erythrocyte count by microscopy (number/high power field) NONE NRG Automated urine sediment leukocyte count by microscopy (number/high power field ) [HPF] NRG Bacteria detection in urine sediment by light microscopy NONE NRG Crystals detection in urine sediment by light microscopy NONE NRG Casts detection in urine sediment by light microscopy PRESENT NRG Mucus detection in urine sediment by light microscopy SMALL NRG Complete urinalysis with reflex to culture NO NRG Hyaline casts detection in urine sediment by light microscopy 10-25 NRG Granular casts detection in urine sediment by light microscopy RARE NRG Sputum Gram stain - 05/04/17 15:41 GRAM STAIN SPUTUM FEW GRAM POSITIVE COCCI NRG Bacterial sputum culture - 05/04/17 15:41 Bacterial sputum culture NORMAL NRG Urine Legionella pneumophila antigen assay - 05/04/17 15:41 Urine Legionella pneumophila antigen assay Negative NRG Streptococcus pneumoniae antigen detection - 05/04/17 15:41 Streptococcus pneumoniae antigen detection Negative NRG Capillary blood glucose measurement by glucometer (mass/volume) - 05/04/17 15: 44 Capillary blood glucose measurement by glucometer (mass/volume) 338 mg/dL 70-110 Influenza virus A and B antigen detection - 05/04/17 16:08 FLU RESULT NEGATIVE FOR INFLUENZA A AND B ANTIGENS BY IA NRG Serum or plasma lactate measurement (moles/volume) - 05/04/17 16:45 Serum or plasma lactate measurement (moles/volume) 5.35 mmol/L 0.50-2.00 Capillary blood glucose measurement by glucometer (mass/volume) - 05/04/17 20: 09 Capillary blood glucose measurement by glucometer (mass/volume) 393 mg/dL 70-110 Arterial blood gas measurement - 05/05/17 04:35 Blood pCO2 33 mm[Hg] 35-45 Blood pO2 73 mm[Hg] 79-93 Arterial blood bicarbonate measurement (moles/volume) 20 mmol/L 23-27 Arterial blood base excess by calculation -4.5 mmol/L - 2.5-2.5 Arterial blood oxygen saturation measurement 95 % 94-100 * Inhaled oxygen flow rate 2L NRG Arterial blood pH measurement with patient temperature correction 7.39 7.37-7.43 Arterial blood carbon dioxide, total measurement (moles/volume) 20.7 mmol/L 21.0-31.0 Body site LEFT RADIAL NRG Assessment of wrist artery patency prior to arterial puncture YES- POS NRG Setting of ventilation mode NO NRG Measurement of body temperature 97.7 NRG Complete blood count (CBC) with automated white blood cell (WBC) differential - 05/05/17 05:16 Blood leukocytes automated count (number/volume) 20.1 10*3/uL 4.3-11.0 Blood erythrocytes automated count (number/volume) 3.61 10*6/uL 4.35-5.85 Venous blood hemoglobin measurement (mass/volume) 11.1 g/dL 13.3-17.7 Blood hematocrit (volume fraction) 34 % 40-54 Automated erythrocyte mean corpuscular volume 93 [foz_us] 80-99 Automated erythrocyte mean corpuscular hemoglobin (mass per erythrocyte) 31 pg 25-34 Automated erythrocyte mean corpuscular hemoglobin concentration measurement ( mass/volume) 33 g/dL 32-36 Automated erythrocyte distribution width ratio 13.1 % 10.0-14.5 Automated blood platelet count (count/volume) 300 10*3/uL 130-400 Automated blood platelet mean volume measurement 10.1 [foz_us] 7.4-10.4 Automated blood neutrophils/100 leukocytes 94 % 42-75 Automated blood lymphocytes/100 leukocytes 3 % 12-44 Blood monocytes/100 leukocytes 3 % 0-12 Automated blood eosinophils/100 leukocytes 0 % 0-10 Automated blood basophils/100 leukocytes 0 % 0-10 Blood neutrophils automated count (number/volume) 18.8 10*3 1.8-7.8 Blood lymphocytes automated count (number/volume) 0.7 10*3 1.0-4.0 Blood monocytes automated count (number/volume) 0.6 10*3 0.0-1.0 Automated eosinophil count 0.0 10*3/uL 0.0-0.3 Automated blood basophil count (count/volume) 0.0 10*3/uL 0.0-0.1 Whole blood basic metabolic panel - 05/05/17 05:16 Serum or plasma sodium measurement (moles/volume) 135 mmol/L 135-145 Serum or plasma potassium measurement (moles/volume) 3.8 mmol/L 3.6-5.0 Serum or plasma chloride measurement (moles/volume) 106 mmol/L 98-107 Carbon dioxide 18 mmol/L 21-32 Serum or plasma anion gap determination (moles/volume) 11 mmol/L 5-14 Serum or plasma urea nitrogen measurement (mass/volume) 23 mg/dL 7-18 Serum or plasma creatinine measurement (mass/volume) 0.83 mg/dL 0.60-1.30 Serum or plasma urea nitrogen/creatinine mass ratio 28 NRG Serum or plasma creatinine measurement with calculation of estimated glomerular filtration rate > NRG Serum or plasma glucose measurement (mass/volume) 300 mg/dL 70-105 Serum or plasma calcium measurement (mass/volume) 8.5 mg/dL 8.5-10.1 Magnesium - 05/05/17 05:16 Magnesium 1.4 mg/dL 1.8-2.4 Serum or plasma phosphate measurement (mass/volume) - 05/05/17 05:16 Serum or plasma phosphate measurement (mass/volume) 2.8 mg/dL 2.3-4.7 Capillary blood glucose measurement by glucometer (mass/volume) - 05/05/17 05: 17 Capillary blood glucose measurement by glucometer (mass/volume) 300 mg/dL 70-110 Capillary blood glucose measurement by glucometer (mass/volume) - 05/05/17 11: 00 Capillary blood glucose measurement by glucometer (mass/volume) 357 mg/dL 70-110 Capillary blood glucose measurement by glucometer (mass/volume) - 05/05/17 16: 00 Capillary blood glucose measurement by glucometer (mass/volume) 392 mg/dL 70-110 Capillary blood glucose measurement by glucometer (mass/volume) - 05/05/17 21: 07 Capillary blood glucose measurement by glucometer (mass/volume) 378 mg/dL 70-110 Complete blood count (CBC) with automated white blood cell (WBC) differential - 05/06/17 04:04 Blood leukocytes automated count (number/volume) 19.7 10*3/uL 4.3-11.0 Blood erythrocytes automated count (number/volume) 3.51 10*6/uL 4.35-5.85 Venous blood hemoglobin measurement (mass/volume) 10.6 g/dL 13.3-17.7 Blood hematocrit (volume fraction) 33 % 40-54 Automated erythrocyte mean corpuscular volume 94 [foz_us] 80-99 Automated erythrocyte mean corpuscular hemoglobin (mass per erythrocyte) 30 pg 25-34 Automated erythrocyte mean corpuscular hemoglobin concentration measurement ( mass/volume) 32 g/dL 32-36 Automated erythrocyte distribution width ratio 13.2 % 10.0-14.5 Automated blood platelet count (count/volume) 313 10*3/uL 130-400 Automated blood platelet mean volume measurement 10.2 [foz_us] 7.4-10.4 Automated blood neutrophils/100 leukocytes 94 % 42-75 Automated blood lymphocytes/100 leukocytes 3 % 12-44 Blood monocytes/100 leukocytes 3 % 0-12 Automated blood eosinophils/100 leukocytes 0 % 0-10 Automated blood basophils/100 leukocytes 0 % 0-10 Blood neutrophils automated count (number/volume) 18.5 10*3 1.8-7.8 Blood lymphocytes automated count (number/volume) 0.6 10*3 1.0-4.0 Blood monocytes automated count (number/volume) 0.7 10*3 0.0-1.0 Automated eosinophil count 0.0 10*3/uL 0.0-0.3 Automated blood basophil count (count/volume) 0.0 10*3/uL 0.0-0.1 Serum or plasma phosphate measurement (mass/volume) - 05/06/17 04:04 Serum or plasma phosphate measurement (mass/volume) 2.5 mg/dL 2.3-4.7 Whole blood basic metabolic panel - 05/06/17 04:04 Serum or plasma sodium measurement (moles/volume) 137 mmol/L 135-145 Serum or plasma potassium measurement (moles/volume) 4.3 mmol/L 3.6-5.0 Serum or plasma chloride measurement (moles/volume) 106 mmol/L 98-107 Carbon dioxide 22 mmol/L 21-32 Serum or plasma anion gap determination (moles/volume) 9 mmol/L 5-14 Serum or plasma urea nitrogen measurement (mass/volume) 24 mg/dL 7-18 Serum or plasma creatinine measurement (mass/volume) 0.84 mg/dL 0.60-1.30 Serum or plasma urea nitrogen/creatinine mass ratio 29 NRG Serum or plasma creatinine measurement with calculation of estimated glomerular filtration rate > NRG Serum or plasma glucose measurement (mass/volume) 332 mg/dL 70-105 Serum or plasma calcium measurement (mass/volume) 8.8 mg/dL 8.5-10.1 Magnesium - 05/06/17 04:04 Magnesium 2.0 mg/dL 1.8-2.4 Capillary blood glucose measurement by glucometer (mass/volume) - 05/06/17 05: 54 Capillary blood glucose measurement by glucometer (mass/volume) 295 mg/dL 70-110 Capillary blood glucose measurement by glucometer (mass/volume) - 05/06/17 11: 53 Capillary blood glucose measurement by glucometer (mass/volume) 343 mg/dL 70-110 CBC - 06/07/17 10:20 WHITE BLOOD CELL COUNT 12.9 Thousand/uL 3.8-10.8 RED BLOOD CELL COUNT 4.43 Million/uL 4.20-5.80 HEMOGLOBIN 13.5 g/dL 13.2-17.1 HEMATOCRIT 40.5 % 38.5-50.0 MCV 91.4 fL 80.0-100.0 MCH 30.5 pg 27.0-33.0 MCHC 33.3 g/dL 32.0-36.0 RDW 13.5 % 11.0-15.0 PLATELET COUNT 426 Thousand/uL 140-400 MPV 9.9 fL 7.5-12.5 ABSOLUTE NEUTROPHILS 9017 cells/uL 6075-4792 ABSOLUTE LYMPHOCYTES 2399 cells/uL 850-3900 ABSOLUTE MONOCYTES 813 cells/uL 200-950 ABSOLUTE EOSINOPHILS 516 cells/uL 15-500 ABSOLUTE BASOPHILS 155 cells/uL 0-200 NEUTROPHILS 69.9 % NRG LYMPHOCYTES 18.6 % NRG MONOCYTES 6.3 % NRG EOSINOPHILS 4.0 % NRG BASOPHILS 1.2 % NRG Complete blood count (CBC) with automated white blood cell (WBC) differential - 12/21/17 17:21 Blood leukocytes automated count (number/volume) 16.3 10*3/uL 4.3-11.0 Blood erythrocytes automated count (number/volume) 4.83 10*6/uL 4.35-5.85 Venous blood hemoglobin measurement (mass/volume) 15.1 g/dL 13.3-17.7 Blood hematocrit (volume fraction) 45 % 40-54 Automated erythrocyte mean corpuscular volume 93 [foz_us] 80-99 Automated erythrocyte mean corpuscular hemoglobin (mass per erythrocyte) 31 pg 25-34 Automated erythrocyte mean corpuscular hemoglobin concentration measurement ( mass/volume) 34 g/dL 32-36 Automated erythrocyte distribution width ratio 14.5 % 10.0-14.5 Automated blood platelet count (count/volume) 242 10*3/uL 130-400 Automated blood platelet mean volume measurement 10.6 [foz_us] 7.4-10.4 Automated blood neutrophils/100 leukocytes 84 % 42-75 Automated blood lymphocytes/100 leukocytes 7 % 12-44 Blood monocytes/100 leukocytes 8 % 0-12 Automated blood eosinophils/100 leukocytes 1 % 0-10 Automated blood basophils/100 leukocytes 0 % 0-10 Blood neutrophils automated count (number/volume) 13.6 10*3 1.8-7.8 Blood lymphocytes automated count (number/volume) 1.2 10*3 1.0-4.0 Blood monocytes automated count (number/volume) 1.3 10*3 0.0-1.0 Automated eosinophil count 0.1 10*3/uL 0.0-0.3 Automated blood basophil count (count/volume) 0.0 10*3/uL 0.0-0.1 Comprehensive metabolic panel - 12/21/17 17:21 Serum or plasma sodium measurement (moles/volume) 137 mmol/L 135-145 Serum or plasma potassium measurement (moles/volume) 4.0 mmol/L 3.6-5.0 Serum or plasma chloride measurement (moles/volume) 103 mmol/L 98-107 Carbon dioxide 21 mmol/L 21-32 Serum or plasma anion gap determination (moles/volume) 13 mmol/L 5-14 Serum or plasma urea nitrogen measurement (mass/volume) 18 mg/dL 7-18 Serum or plasma creatinine measurement (mass/volume) 0.94 mg/dL 0.60-1.30 Serum or plasma urea nitrogen/creatinine mass ratio 19 NRG Serum or plasma creatinine measurement with calculation of estimated glomerular filtration rate > NRG Serum or plasma glucose measurement (mass/volume) 111 mg/dL 70-105 Serum or plasma calcium measurement (mass/volume) 9.5 mg/dL 8.5-10.1 Serum or plasma total bilirubin measurement (mass/volume) 1.2 mg/dL 0.1-1.0 Serum or plasma alkaline phosphatase measurement (enzymatic activity/volume) 86 U/L 40-136 Serum or plasma aspartate aminotransferase measurement (enzymatic activity/ volume) 12 U/L 5-34 Serum or plasma alanine aminotransferase measurement (enzymatic activity/volume ) 19 U/L 0-55 Serum or plasma protein measurement (mass/volume) 7.5 g/dL 6.4-8.2 Serum or plasma albumin measurement (mass/volume) 4.1 g/dL 3.2-4.5 Blood manual differential performed detection - 12/21/17 17:21 Blood monocytes/100 leukocytes 6 % NR Manual blood segmented neutrophils/100 leukocytes 76 % NRG Blood band neutrophils/100 leukocytes 8 % NRG Manual blood lymphocytes/100 leukocytes 19 % NRG Manual eosinophils/100 leukocytes in nose 1 % NR Manual blood basophils/100 leukocytes 0 % NR Blood erythrocyte morphology finding identification NORMAL [facility] Blood lactic acid measurement (moles/volume) - 12/21/17 18:13 Blood lactic acid measurement (moles/volume) 1.20 mmol/L 0.50-2.00 Bacterial blood culture - 12/21/17 18:13 QUANTITY OF GROWTH . [facility] Bacterial blood culture SEE COMMEN [facility] Bacterial blood culture - 12/21/17 18:27 Bacterial blood culture NG [facility] Arterial blood gas measurement - 12/21/17 18:35 Blood pCO2 32 mm[Hg] 35-45 Blood pO2 69 mm[Hg] 79-93 Arterial blood bicarbonate measurement (moles/volume) 21 mmol/L 23-27 Arterial blood base excess by calculation -3.0 mmol/L - 2.5-2.5 Arterial blood oxygen saturation measurement 95 % 94-100 * Inhaled oxygen flow rate 2L NRG Arterial blood pH measurement with patient temperature correction 7.43 7.37-7.43 Arterial blood carbon dioxide, total measurement (moles/volume) 21.7 mmol/L 21.0-31.0 Body site LT RAD NRG Assessment of wrist artery patency prior to arterial puncture YES- POS NRG Setting of ventilation mode NO NRG Measurement of body temperature 98.6 NRG Encounters ACCT No. Visit Date/Time Discharge Status Pt. Type Provider Facility Loc./Unit Complaint [id number] 11/13/2014 16:11:00 11/13/2014 23:59:59 CLS Outpatient JOSE F VALLEJO MD [id number] 10/21/2014 15:56:00 10/21/2014 23:59:59 CLS Outpatient JOSE F VALLEJO MD [id number] 08/12/2014 10:19:00 08/12/2014 23:59:59 CLS Outpatient JOSE F VALLEJO MD [id number] 07/10/2014 10:35:00 07/10/2014 23:59:59 CLS Outpatient JOSE F VALLEJO MD [id number] 07/03/2014 14:55:00 07/03/2014 23:59:59 CLS Outpatient MANISHA MENJIVAR APRN [id number] 03/05/2014 10:25:00 03/05/2014 23:59:59 CLS Outpatient JOSE F VALLEJO MD [id number] 02/18/2014 13:50:00 02/18/2014 23:59:59 CLS Outpatient JOSE F VALLEJO MD [id number] 02/03/2014 09:29:00 02/03/2014 23:59:59 CLS Outpatient ANGELES MCKEON MD [id number] 01/24/2014 11:04:00 01/24/2014 23:59:59 CLS Outpatient JOSE F VALLEJO MD [id number] 11/14/2013 14:26:00 11/14/2013 23:59:59 CLS Outpatient JOSE F VALLEJO MD [id number] 09/12/2013 13:10:00 09/12/2013 23:59:59 CLS Outpatient JUSTEN DEWEY MD [id number] 08/15/2013 13:47:00 08/15/2013 23:59:59 CLS Outpatient CARLIOTS [employer] [facility] ASSISTANTJONO Elvia [id number] 07/30/2013 10:31:00 07/30/2013 23:59:59 CLS Outpatient BRANDI JC DO [id number] 06/13/2013 14:01:00 06/13/2013 23:59:59 CLS Outpatient JUSTEN DEWEY MD [id number] 04/15/2013 08:39:00 04/15/2013 23:59:59 CLS Outpatient JUSTEN DEWEY MD [id number] 09/27/2012 16:18:00 09/27/2012 23:59:59 CLS Outpatient JONO URBINA APRN [id number] 09/19/2012 11:02:00 09/19/2012 23:59:59 CLS Outpatient [id number] 08/04/2012 11:46:00 08/04/2012 23:59:59 CLS Outpatient ANGELES MCKEON MD [id number] 06/27/2012 09:22:00 06/27/2012 23:59:59 [place] [id number] 05/23/2012 11:04:00 05/23/2012 23:59:59 CLS Outpatient CARLITOS CASSIDYHANDYJONO S [id number] 03/25/2013 13:17:00 Document Registration [id number] 01/08/2013 14:15:00 Document Registration [id number] 12/30/2016 23:07:00 Document Registration [id number] 02/27/2018 09:40:00 02/27/2018 23:59:59 CLS Outpatient [facility]SE F VALLEJO [facility] [place] [id number] 06/07/2017 09:00:00 Document Registration [id number] 04/28/2017 08:40:00 Document Registration [id number] 09/05/2014 04:56:19 ACT Document Registration [id number] 04/29/2017 09:10:00 Document Registration [id number] 12/21/2017 16:46:00 12/21/2017 19:45:00 DIS Emergency JOHANNE DE LOS SANTOS [employer] ASSISTANT [facility] ER COUGH;TROUBLE BREATHING [id number] 08/01/2017 08:15:00 08/01/2017 23:59:59 CLS Preadmit KYREE RAMIREZ DO [facility] PULM COPD [id number] 05/02/2017 13:23:00 07/31/2017 00:01:00 DIS Outpatient KYREE RAMIREZ DO [facility] PULM COPD [id number] 05/04/2017 11:40:00 05/06/2017 12:45:00 DIS Inpatient RILEY KIRBY MD [facility] 4TH COPD/EXACERBATION [id number] 02/27/2017 08:01:00 04/29/2017 00:01:00 DIS Outpatient KYREE RAMIREZ DO [facility] PUL COPD [id number] 04/19/2017 12:08:00 04/19/2017 13:58:00 DIS Emergency JOHANNE DE LOS SANTOS APRN [facility] ER SOA/COUGH CHEST PAIN [id number] 08/03/2016 11:00:00 08/05/2016 15:24:00 DIS Inpatient JOSE F VALLEJO MD [facility] 4TH COPD [id number] 01/08/2016 09:36:00 01/08/2016 23:59:59 CLS Outpatient HARMONY BRIZUELA MD (DDU) [facility] RAD XRAY [id number] 08/22/2014 12:03:00 08/22/2014 15:00:00 DIS Outpatient ROHITH WALKER DO [facility] BLOOD IN STOOL [id number] 12/12/2013 22:03:00 12/14/2013 12:10:00 DIS Inpatient BRANDI JC DO [facility] 4TH PNEUMONIA, COPD EXACERBATION, CHEST WALL PAIN [id number] 11/06/2013 09:14:00 11/06/2013 23:59:59 CLS Outpatient KYREE RAMIREZ DO [facility] LAB HO,INTERSTITIAL LUNG DISEASE, TOBACCO USER [id number] 10/30/2013 11:58:00 10/30/2013 15:25:00 DIS Outpatient KYREE RAMIREZ DO [facility] SDC SHORTNESS OF BREATH, TOBACCO USER DMII [id number] 10/25/2013 08:23:00 10/25/2013 23:59:59 CLS Outpatient KYREE RAMIREZ DO [facility] PREOP SHORTNESS OF BREATH [id number] 09/18/2013 16:18:00 09/18/2013 23:59:59 CLS Outpatient JUSTEN DEWEY MD [facility] RT SOB [id number] 09/16/2013 15:04:00 09/16/2013 23:59:59 CLS Outpatient JUSTEN DEWEY MD [facility] RAD SHORTNESS OF BREATH [id number] 11/19/2014 13:39:00 Document Registration [id number] 05/30/2012 13:05:00 Document Registration [id number] 04/03/2012 10:06:00 Document Registration [id number] 01/13/2012 07:31:00 Document Registration [id number] 09/10/2010 10:07:00 Document Registration
--- NOTE | 2018-09-03 15:20 | ED General ---
General Chief Complaint: Respiratory Problems Stated Complaint: POSS PNEUMONIA Nursing Triage Note: PT PRESENTS TO ER WITH COMPLAINT OF SOA. STATES HE HAS BEEN COUGHING UP GREEN STUFF. STATES SYMPTOMS STARTED MONDAY. PT DOES NOT KNOW WHAT MEDICAL HX OR MEDICINES HE TAKES. Nursing Sepsis Screen: No Definite Risk Source of Information: Patient Exam Limitations: Other (poor historian) History of Present Illness Date Seen by Provider: Sep 03, 2018 Time Seen by Provider: 15:10 Initial Comments Here with report of several days of coughing and now shortness of breath. He states overall he doesn't feel well. Somewhat poor historian. Not normally on oxygen at on that today. Timing/Duration: 2-3 Days Severity: Moderate Associated Systoms: Cough, Fever/Chills; No Nausea/Vomiting; Shortness of Air, Weakness Allergies and Home Medications Allergies Coded Allergies: No Known Drug Allergies (Unverified , 09/10/10) Home Medications Albuterol Sulfate 18 Gm Hfa.aer.ad, 2 PUFF IH Q4H PRN for SHORTNESS OF BREATH, ( Reported) Albuterol Sulfate 2.5 Mg/3 Ml Vial.neb, 2.5 MG NEB Q6H PRN for SHORTNESS OF BREATH, (Reported) Atorvastatin Calcium 40 Mg Tablet, 40 MG PO HS, (Reported) Fluticasone/Salmeterol 1 Each Blst.w.dev, 1 PUFF IH BID PRN for SHORTNESS OF BREATH, (Reported) Folic Acid 1 Mg Tablet, 1 MG PO DAILY, (Reported) Glipizide 5 Mg Tablet, 10 MG PO BID, (Reported) LAST RECEIVED #360 01-13-17 TAKES 2 (5MG) TABLETS Hydrocodone Bit/Acetaminophen 1 Each Tablet, 1 TAB PO Q6H PRN for PAIN-MODERATE, (Reported) Hydroxychloroquine Sulfate 200 Mg Tablet, 400 MG PO DAILY, (Reported) TAKES 2 (200MG) TABLETS Levofloxacin 500 Mg Tablet, 500 MG PO DAILY Prescribed by: JOHANNE DE LOS SANTOS on 12/21/171909 Lisinopril 20 Mg Tablet, 20 MG PO DAILY, (Reported) Methotrexate Tablet 2.5 Mg Tablet, 15 MG PO We, (Reported) TAKES 6 (2.5MG) TABLETS Piroxicam 20 Mg Capsule, 20 MG PO DAILY, (Reported) Prednisone 20 Mg Tab, 40 MG PO DAILY Prescribed by: JOHANNE DE LOS SANTOS on 12/21/171909 Patient Home Medication List Home Medication List Reviewed: Yes Review of Systems Review of Systems Constitutional: see HPI EENTM: nose congestion, throat pain Respiratory: cough, short of breath Cardiovascular: no symptoms reported Gastrointestinal: no symptoms reported Genitourinary: no symptoms reported Musculoskeletal: no symptoms reported All Other Systems Reviewed Negative Unless Noted: Yes Past Ntgqlbl-Oygjpv-Bjbjbb Hx Past Med/Social Hx: Reviewed Nursing Past Med/Soc Hx Patient Social History Alcohol Use: Denies Use Recreational Drug Use: No Smoking Status: Current Everyday Smoker Type Used: Cigarettes Recent Foreign Travel: No Contact w/Someone Who Travel: No Recent Infectious Disease Expo: No Recent Hopitalizations: No Immunizations Up To Date Tetanus Booster (TDap): Unknown Date of Pneumonia Vaccine: Jun 01, 2013 Date of Influenza Vaccine: May 31, 2014 Seasonal Allergies Seasonal Allergies: No Past Medical History Surgeries: No Respiratory: Yes COPD Currently Using CPAP: No Currently Using BIPAP: No Cardiac: Yes Hypertension Neurological: No Reproductive Disorders: No Genitourinary: No Gastrointestinal: No Musculoskeletal: Yes Rheumatoid Arthritis Endocrine: Yes (TYPE 2 DIABETES) Diabetes, Non-Insulin dep HEENT: No Loss of Vision: Left Cancer: No Psychosocial: No Integumentary: No Psoriasis Blood Disorders: No Adverse Reaction/Blood Tranf: No Family Medical History Reviewed Nursing Family Hx Cancer G8 SISTER Family history: Diabetes mellitus G8 SISTER Physical Exam-Suspected Sepsis Physical Exam Vital Signs Vital Signs - First Documented 09/03/18 14:47 Temp 98.8 Pulse 115 Resp 20 B/P (MAP) 136/79 (98) Pulse Ox 93 O2 Delivery Room Air Capillary Refill : Less Than 3 Seconds Blood Pressure Mean: 98 Height, Weight, BMI Height: 5'7.00" Weight: 230lbs. 0.0oz. [id number]; 34.5 BMI Method:Stated General Appearance: No Apparent Distress, WD/WN HEENT: PERRL/EOMI, Pharyngeal Erythema Neck: Non Tender, Supple Respiratory: Crackles (bilateral bases); No Wheezing Cardiovascular: No Murmur, Tachycardia Gastrointestinal: Non Tender, Soft Back: Normal Inspection, No CVA Tenderness, No Vertebral Tenderness Extremity: Normal Range of Motion, Non Tender Neurologic/Psychiatric: Alert, Oriented x3 Skin: normal color, warm/dry Focused Exam Lactate Level 09/03/18 14:54: Lactic Acid Level 2.00 Lactic Acid Level Laboratory Tests Test 09/03/18 14:54 Lactic Acid Level 2.00 MMOL/L (0.50-2.00) Progress/Results/Core Measures Suspected Sepsis Recent Fever Within 48 Hours: No Infection Criteria Present: None New/Unexplained Altered Menta: No Sepsis Screen: No Definite Risk SIRS Temperature:98.8 Pulse: 115 Respiratory Rate: 20 Laboratory Tests 09/03/18 14:54: White Blood Count 18.2H Blood Pressure 136 /79 Mean: 98 09/03/18 14:54: Lactic Acid Level 2.00 Laboratory Tests 09/03/18 14:54: Creatinine 0.87, INR Comment 1.3, Platelet Count 292, Total Bilirubin 1.9H Results/Orders Lab Results Laboratory Tests Test 09/03/18 14:54 Range/Units White Blood Count 18.2 H 4.3-11.0 10^3/uL Red Blood Count 5.14 4.35-5.85 10^6/uL Hemoglobin 15.5 13.3-17.7 G/DL Hematocrit 47 40-54 % Mean Corpuscular Volume 92 80-99 FL Mean Corpuscular Hemoglobin 30 25-34 PG Mean Corpuscular Hemoglobin Concent 33 32-36 G/DL Red Cell Distribution Width 13.2 10.0-14.5 % Platelet Count 292 130-400 10^3/uL Mean Platelet Volume 10.5 H 7.4-10.4 FL Neutrophils (%) (Auto) 84 H 42-75 % Lymphocytes (%) (Auto) 7 L 12-44 % Monocytes (%) (Auto) 8 0-12 % Eosinophils (%) (Auto) 0 0-10 % Basophils (%) (Auto) 0 0-10 % Neutrophils # (Auto) 15.3 H 1.8-7.8 X 10^3 Lymphocytes # (Auto) 1.3 1.0-4.0 X 10^3 Monocytes # (Auto) 1.5 H 0.0-1.0 X 10^3 Eosinophils # (Auto) 0.0 0.0-0.3 10^3/uL Basophils # (Auto) 0.0 0.0-0.1 10^3/uL Neutrophils % (Manual) 82 % Lymphocytes % (Manual) 8 % Monocytes % (Manual) 6 % Eosinophils % (Manual) 1 % Band Neutrophils 3 % Rouleau SLIGHT Prothrombin Time 16.1 H 12.2-14.7 SEC INR Comment 1.3 0.8-1.4 Activated Partial Thromboplast Time 34 24-35 SEC Sodium Level 133 L 135-145 MMOL/L Potassium Level 4.4 3.6-5.0 MMOL/L Chloride Level 100 98-107 MMOL/L Carbon Dioxide Level 21 21-32 MMOL/L Anion Gap 12 5-14 MMOL/L Blood Urea Nitrogen 21 H 7-18 MG/DL Creatinine 0.87 0.60-1.30 MG/DL Estimat Glomerular Filtration Rate > 60 BUN/Creatinine Ratio 24 Glucose Level 186 H 70-105 MG/DL Lactic Acid Level 2.00 0.50-2.00 MMOL/L Calcium Level 9.9 8.5-10.1 MG/DL Corrected Calcium 10.1 8.5-10.1 MG/DL Total Bilirubin 1.9 H 0.1-1.0 MG/DL Aspartate Amino Transf (AST/SGOT) 15 5-34 U/L Alanine Aminotransferase (ALT/SGPT) 16 0-55 U/L Alkaline Phosphatase 115 40-136 U/L Total Protein 8.4 H 6.4-8.2 GM/DL Albumin 3.7 3.2-4.5 GM/DL My Orders Orders - LEONEL LOPEZ MD Cbc With Automated Diff (09/03/18 15:17) Comprehensive Metabolic Panel (09/03/18 15:17) Blood Culture (09/03/18 15:17) Sputum Culture (09/03/18 15:17) Urinalysis (09/03/18 15:17) Urine Culture (09/03/18 15:17) Protime With Inr (09/03/18 15:17) Partial Thromboplastin Time (09/03/18 15:17) Chest 1 View, Ap/Pa Only (09/03/18 15:17) Acetaminophen Tablet (Tylenol Tablet) (09/03/18 15:30) Saline Lock/Iv-Start (09/03/18 15:17) Saline Lock/Iv-Start (09/03/18 15:17) Vital Signs Adult Sepsis Patie Q15M (09/03/18 15:17) O2 (09/03/18 15:17) Remove Rings In Anticipation O (09/03/18 15:17) Lactic Acid Analyzer (09/03/18 15:17) Influenza A And B Antigens (09/03/18 15:17) Manual Differential (09/03/18 14:54) Saline Lock/Iv-Start (09/03/18 16:30) Ns Iv 1000 Ml (Sodium Chloride 0.9%) (09/03/18 16:30) Cefepime Injection (Maxipime Injection) (09/03/18 16:45) Methylprednisolone Sod Succ (Solu-Medrol (09/03/18 16:46) Medications Given in ED Current Medications Medications Dose Ordered Sig/Sara Route Start Time Stop Time Status Last Admin Dose Admin Acetaminophen 1,000 mg ONCE PRN PO 09/03/18 15:30 09/03/18 15:59 DC 09/03/18 15:59 1,000 MG Sodium Chloride 1,000 ml @ 0 mls/hr Q0M ONCE IV 09/03/18 16:30 09/03/18 16:31 DC 09/03/18 16:54 1,000 MLS/HR Vital Signs/I&O 09/03/18 14:47 Temp 98.8 Pulse 115 Resp 20 B/P (MAP) 136/79 (98) Pulse Ox 93 O2 Delivery Room Air Capillary Refill : Less Than 3 Seconds Blood Pressure Mean: 98 Progress Note : Progress Note Seen and evaluated. Abscess protocol initiated. IV, labs, EKG, chest x-ray, blood cultures and lactic acid ordered. Monitor patient. 1635: Normal saline 1 L bolus ordered. This is lactic acid is 2 and he does have findings of pneumonia. Patient will require admission. ECG Initial ECG Impression Date: Sep 03, 2018 Initial ECG Impression Time: 15:07 Initial ECG Rate: 112 Initial ECG Rhythm: S.Tach Comment Sinus tachycardia with right bundle branch block and left axis deviation. Similar to previous but worsening axis from 04/19/17. No evidence of this elevation [place]. Interpreted by me. Diagnostic Imaging Diagonstic Imaging: Xray Plain Films/CT/US/NM/MRI: chest Comments [facility]. [place], [place] NAME: EMERALD SHAH [facility] REC#: [id number] PT STATUS: REG ER : 1955 PHYSICIAN: LEONEL LOPEZ MD ADMIT DATE: 09/03/18/ER Draft Date of Exam:09/03/18 CHEST 1 VIEW, AP/PA ONLY INDICATION: Shortness of air. Productive cough. FINDINGS: There is chronic lung disease. Bilateral central infiltrates and parenchymal opacities have progressed from the study of 12/21/2017, presumed to reflect pneumonia superimposed upon the chronic fibrotic disease. IMPRESSION: Chronic fibrotic lung disease present with new perihilar increased parenchymal densities, given the history presumptively reflective of pneumonia superimposed. Dictated on workstation # [id number] Dict: 09/03/18 1605 Trans: 09/03/18 1613 [facility] [id number] Interpreted by: LARRY SANDS Electronically signed by: Departure Communication (Admissions) Time/Spoke to Admitting Phy: 16:42 Impression Primary Impression: Pneumonia of both lower lobes Qualified Codes: J18.1 - Lobar pneumonia, unspecified organism Additional Impression: COPD exacerbation Disposition: ADMITTED INPATIENT Condition: Stable Admissions Decision to Admit Reason: Admit from ER (General) Decision to Admit/Date: Sep 03, 2018 Time/Decision to Admit Time: 16:42 Departure-Patient Inst. Referrals: JOSE F VALLEJO MD (PCP/Family) Primary Care Physician LEONEL LOPEZ MD Sep 03, 2018 15:20
[2018-09-03 15:25] LABS: BASOPHILS % (AUTO) 0 % (0-10); EOSINOPHILS % (AUTO) 0 % (0-10); HEMATOCRIT 47 % (40-54); HEMOGLOBIN 15.5 G/DL (13.3-17.7); LYMPHOCYTES # (AUTO) 1.3 X 10^3 (1.0-4.0); LYMPHOCYTES % (AUTO) 7 % (12-44); MEAN CORPUSCULAR HEMOGLOBIN 30 PG (25-34); MEAN CORPUSCULAR HGB CONC 33 G/DL (32-36); MEAN CORPUSCULAR VOLUME 92 FL (80-99); MEAN PLATELET VOLUME 10.5 FL (7.4-10.4); MONOCYTES # (AUTO) 1.5 X 10^3 (0.0-1.0); MONOCYTES % (AUTO) 8 % (0-12); NEUTROPHILS # (AUTO) 15.3 X 10^3 (1.8-7.8); NEUTROPHILS % (AUTO) 84 % (42-75); PLATELET COUNT 292 10^3/uL (130-400); RED CELL DISTRIBUTION WIDTH 13.2 % (10.0-14.5); WHITE BLOOD COUNT 18.2 10^3/uL (4.3-11.0)
[2018-09-03 15:30] LABS: INR 1.3 (0.8-1.4); PROTHROMBIN TIME PATIENT 16.1 SEC (12.2-14.7)
[2018-09-03] MEDS ORDERED: ACETAMINOPHEN 500 MG TAB (TYLENOL) PO PRN (15:30)
[2018-09-03 16:00] LABS: ALANINE AMINOTRANSFERASE 16 U/L (0-55); ALBUMIN 3.7 GM/DL (3.2-4.5); ALKALINE PHOSPHATASE 115 U/L (40-136); BILIRUBIN,TOTAL 1.9 MG/DL (0.1-1.0); BUN/CREATININE RATIO 24; CALCIUM 9.9 MG/DL (8.5-10.1); CARBON DIOXIDE 21 MMOL/L (21-32); CHLORIDE 100 MMOL/L (98-107); CREATININE SERUM 0.87 MG/DL (0.60-1.30); GFR ESTIMATED > 60; GLUCOSE 186 MG/DL (70-105); POTASSIUM 4.4 MMOL/L (3.6-5.0); SODIUM 133 MMOL/L (135-145); TOTAL PROTEIN 8.4 GM/DL (6.4-8.2)
--- NOTE | 2018-09-03 16:14 | Diagnostic Imaging Report ---
INDICATION: Shortness of air. Productive cough. FINDINGS: There is chronic lung disease. Bilateral central infiltrates and parenchymal opacities have progressed from the study of 12/21/2017, presumed to reflect pneumonia superimposed upon the chronic fibrotic disease. IMPRESSION: Chronic fibrotic lung disease present with new perihilar increased parenchymal densities, given the history presumptively reflective of pneumonia superimposed. Dictated by: Dictated on workstation # [id number]
[2018-09-03] MEDS ORDERED: NS IV 1000 ML 1,000 ML IV ONE (16:30)
[2018-09-03 16:31] LABS: BAND NEUTROPHILS 3 %; EOSINOPHILS % (MANUAL) 1 %; LYMPHOCYTES % (MANUAL) 8 %; MONOCYTES % (MANUAL) 6 %; NEUTROPHILS % (MANUAL) 82 %; ROULEAUX SLIGHT
[2018-09-03] MEDS ORDERED: CEFEPIME INJECTION 2,000 MG in NS (IVPB) 50 ML IV ONE (16:45)
[2018-09-03] MEDS ORDERED: methylPREDNISolone 125 MG (Solu-MEDROL) VIAL IV STA (16:46)
[2018-09-03] MEDS ORDERED: OSELTAMIVIR 75 MG (TAMIFLU) CAPSULE ONE (17:27)
--- NOTE | 2018-09-03 18:10 | NUR ---
EMERALD SHAH admitted to room 409-1, with an admitting diagnosis of COPDM PNUEMONIA, INFLUENZA A AND B., on 09/03/18 from ED via WHEELCHAIR, accompanied by ED STAFF. EMERALD OLVERA introduced to surroundings, call light, bed controls, phone, TV, temperature control, lights, meal times, smoking policy, visitor policy, side rail policy, bathrooms and showers. Patient Rights given to patient in the handbook. EMERALD SHAH verbalizes understanding that [facility] is not responsible for the loss or damage to any personal effects or valuables that are kept in the patients possession during their hospitalization. The following Patient Care Plans were discussed with the PATIENT: Discharge Planning, PNEUMONIA, COPD and INFLUENZA. EMERALD SHAH verbalizes understanding of Interdisciplinary Patient Education. Patient and/or family were informed about the Rapid Response Team and its purpose.
[2018-09-03] MEDS ORDERED: CALC60OI3 TOP (18:27)
[2018-09-03] MEDS ORDERED: CANA100T PO (18:27)
[2018-09-03] MEDS ORDERED: ONDANSETRON 4 MG/2 ML (SDV) Z0FRAN IV PRN (19:45)
[2018-09-03] MEDS ORDERED: CATHETER FLUSH 10 ML SYR IV PRN (19:45)
[2018-09-03] MEDS ORDERED: ACETAMINOPHEN 325 MG TABLET PO PRN (19:45)
[2018-09-03 19:46] VITALS: BP 136/79
[2018-09-03 20:00] VITALS: BP 147/87
[2018-09-03] MEDS: RT-ALBUTEROL/IPRATROPIUM 3 ML (DUONEB) VIAL INH SCH (21:03)
[2018-09-03] MEDS: NS IV 1000 ML 1,000 ML IV SCH (21:54)
[2018-09-03] MEDS: OSELTAMIVIR 75 MG (TAMIFLU) CAPSULE PO SCH (21:54)
[2018-09-04] VITALS (7 sets, daily range): BP systolic 100–126; BP diastolic 55–67
[2018-09-04] MEDS: CEFEPIME 1 GM/NS 50 ML IV SCH ×4 (01:13→06:25)
[2018-09-04] MEDS: RT-ALBUTEROL/IPRATROPIUM 3 ML (DUONEB) VIAL INH SCH ×6 (03:19→22:56)
[2018-09-04 06:19] LABS: BASOPHILS % (AUTO) 0 % (0-10); EOSINOPHILS % (AUTO) 0 % (0-10); HEMATOCRIT 43 % (40-54); HEMOGLOBIN 14.4 G/DL (13.3-17.7); LYMPHOCYTES # (AUTO) 0.8 X 10^3 (1.0-4.0); LYMPHOCYTES % (AUTO) 7 % (12-44); MEAN CORPUSCULAR HEMOGLOBIN 31 PG (25-34); MEAN CORPUSCULAR HGB CONC 33 G/DL (32-36); MEAN CORPUSCULAR VOLUME 92 FL (80-99); MEAN PLATELET VOLUME 10.4 FL (7.4-10.4); MONOCYTES # (AUTO) 0.3 X 10^3 (0.0-1.0); MONOCYTES % (AUTO) 3 % (0-12); NEUTROPHILS # (AUTO) 9.9 X 10^3 (1.8-7.8); NEUTROPHILS % (AUTO) 91 % (42-75); PLATELET COUNT 279 10^3/uL (130-400); RED CELL DISTRIBUTION WIDTH 13.1 % (10.0-14.5); WHITE BLOOD COUNT 10.9 10^3/uL (4.3-11.0)
[2018-09-04 06:40] LABS: ALANINE AMINOTRANSFERASE 14 U/L (0-55); ALBUMIN 3.3 GM/DL (3.2-4.5); ALKALINE PHOSPHATASE 97 U/L (40-136); BILIRUBIN,TOTAL 0.6 MG/DL (0.1-1.0); BUN/CREATININE RATIO 34; CALCIUM 9.3 MG/DL (8.5-10.1); CARBON DIOXIDE 17 MMOL/L (21-32); CHLORIDE 105 MMOL/L (98-107); CREATININE SERUM 0.77 MG/DL (0.60-1.30); GFR ESTIMATED > 60; GLUCOSE 256 MG/DL (70-105); POTASSIUM 3.9 MMOL/L (3.6-5.0); SODIUM 136 MMOL/L (135-145); TOTAL PROTEIN 7.4 GM/DL (6.4-8.2)
[2018-09-04] MEDS: OSELTAMIVIR 75 MG (TAMIFLU) CAPSULE PO SCH ×2 (08:45→20:35)
[2018-09-04] MEDS ORDERED: GLIP10TA13 PO (11:19)
[2018-09-04] MEDS ORDERED: METH2.5T PO (11:28)
--- NOTE | 2018-09-04 11:33 | NUR ---
SPOKE WITH THE PATIENT ABOUT HIS MEDICATIONS. WE WENT OVER THE EXT MED HX. HE STATES EVERYTHING COMES FROM THE PHARMACY AT [facility], HE DOES NOT GET SAMPLES OR REPOSITORY MEDS. HE IS PAST DUE FOR REFILL ON HIS LISINOPRIL AND HYDROXYCHLOROQUINE, HE STATES THEY HAVE NOT BEEN STOPPED BUT HE DOES ADMIT TO BEING OUT OF THE FOR SOME TIME. [facility] VERIFIED THE LAST TIME THE LISINOPRIL WAS FILLED WAS #30 18 AND THE HYDROXYCHLOROQUINE HAS BEEN FILLED MORE RECENTLY THAN SHOWN ON THE EXT MED HX, IT WAS FILLED #60 06-15-18 SO IS STILL PAST DUE. HE STATES HE HAS AN ALBUTEROL INHALER AND NEBULIZER SOLUTION NEEDED. HE DOES NOT TAKE ANYTHING OTC.
[2018-09-04] MEDS: inSUlin ASPART (NovoLOG) 1 UNIT/0.01 ML (CHARGE PER UNIT) SC SCH ×3 (11:43→21:58)
[2018-09-04] MEDS: CEFEPIME 1,000 MG/SWFI 10 ML IV PUSH IV SCH ×4 (11:44→17:44)
--- NOTE | 2018-09-04 12:25 | History & Physicial (CHS) ---
HPI History of Present Illness: 63 yo male presented to ER after noting onset of nasal congestion and cough with green mucous starting on Monday (about 4 days ago). He thinks he has had fever on and off. He denies significant increase in shortness of breath compared to baseline. He has COPD and pulmonary fibrosis and uses 2 lpm supplemental oxygen at all times. Source: patient Date seen by provider: Sep 04, 2018 Time Seen by Provider: 09:47 Attending Physician Jose F Reyez MD PCP Jose F Reyez MD Consult Date of Admission Sep 03, 2018 at 16:44 Home Medications Home Medications Reviewed patient Home Medication Reconciliation performed by pharmacy medication reconciliations chemical treatment plant technician and/or nursing. Patients Allergies have been reviewed. Allergies Coded Allergies: celecoxib (Unverified Allergy, Unknown, 09/03/18) UPSET STOMACH naproxen (Unverified Allergy, Unknown, 09/03/18) UPSET STOMACH CXA-Tyuunc-Wtiqny Hx Patient Social History Alcohol Use: Denies Use Recreational Drug Use: No Smoking Status: Current Everyday Smoker Type Used: Cigarettes Recent Foreign Travel: No Contact w/other who traveled: No Recent Hopitalizations: No Recent Infectious Disease Expo: No Immunizations Up To Date Tetanus Booster (TDap): Unknown Date of Pneumonia Vaccine: Jun 01, 2013 Date of Influenza Vaccine: Apr 30, 2018 Past Medical History PMHx: Rhuematoid Arthritis Pulmonary Fibrosis Hypertension Non Insulin Dependent DM Psoriasis HLD Family Medical History Significant Family History: Cancer, Diabetes Family History: Cancer G8 SISTER Family history: Diabetes mellitus G8 SISTER Review of Systems (CHC) Constitutional: see HPI EENTM: see HPI Respiratory: see HPI Cardiovascular: No chest pain Gastrointestinal: No abdominal pain; constipation; No diarrhea, No nausea, No vomiting Genitourinary: No dysuria Skin: No rash Psychiatric/Neurological: No Symptoms Reported Reviewed Test Results Reviewed Test Results Lab Laboratory Tests Test 09/03/18 14:54 09/04/18 05:25 09/04/18 10:56 Range/Units White Blood Count 18.2 H 10.9 4.3-11.0 10^3/uL Red Blood Count 5.14 4.72 4.35-5.85 10^6/uL Hemoglobin 15.5 14.4 13.3-17.7 G/DL Hematocrit 47 43 40-54 % Mean Corpuscular Volume 92 92 80-99 FL Mean Corpuscular Hemoglobin 30 31 25-34 PG Mean Corpuscular Hemoglobin Concent 33 33 32-36 G/DL Red Cell Distribution Width 13.2 13.1 10.0-14.5 % Platelet Count 292 279 130-400 10^3/uL Mean Platelet Volume 10.5 H 10.4 7.4-10.4 FL Neutrophils (%) (Auto) 84 H 91 H 42-75 % Lymphocytes (%) (Auto) 7 L 7 L 12-44 % Monocytes (%) (Auto) 8 3 0-12 % Eosinophils (%) (Auto) 0 0 0-10 % Basophils (%) (Auto) 0 0 0-10 % Neutrophils # (Auto) 15.3 H 9.9 H 1.8-7.8 X 10^3 Lymphocytes # (Auto) 1.3 0.8 L 1.0-4.0 X 10^3 Monocytes # (Auto) 1.5 H 0.3 0.0-1.0 X 10^3 Eosinophils # (Auto) 0.0 0.0 0.0-0.3 10^3/uL Basophils # (Auto) 0.0 0.0 0.0-0.1 10^3/uL Neutrophils % (Manual) 82 % Lymphocytes % (Manual) 8 % Monocytes % (Manual) 6 % Eosinophils % (Manual) 1 % Band Neutrophils 3 % Rouleau SLIGHT Prothrombin Time 16.1 H 12.2-14.7 SEC INR Comment 1.3 0.8-1.4 Activated Partial Thromboplast Time 34 24-35 SEC Sodium Level 133 L 136 135-145 MMOL/L Potassium Level 4.4 3.9 3.6-5.0 MMOL/L Chloride Level 100 105 98-107 MMOL/L Carbon Dioxide Level 21 17 L 21-32 MMOL/L Anion Gap 12 14 5-14 MMOL/L Blood Urea Nitrogen 21 H 26 H 7-18 MG/DL Creatinine 0.87 0.77 0.60-1.30 MG/DL Estimat Glomerular Filtration Rate > 60 > 60 BUN/Creatinine Ratio 24 34 Glucose Level 186 H 256 H 70-105 MG/DL Lactic Acid Level 2.00 0.50-2.00 MMOL/L Calcium Level 9.9 9.3 8.5-10.1 MG/DL Corrected Calcium 10.1 9.9 8.5-10.1 MG/DL Total Bilirubin 1.9 H 0.6 0.1-1.0 MG/DL Aspartate Amino Transf (AST/SGOT) 15 16 5-34 U/L Alanine Aminotransferase (ALT/SGPT) 16 14 0-55 U/L Alkaline Phosphatase 115 97 40-136 U/L Total Protein 8.4 H 7.4 6.4-8.2 GM/DL Albumin 3.7 3.3 3.2-4.5 GM/DL Glucometer 317 H 70-110 MG/DL Radiology CXR 09/03/18: IMPRESSION: Chronic fibrotic lung disease present with new perihilar increased parenchymal densities, given the history presumptively reflective of pneumonia superimposed. Physical Exam-([facility]) Physical Exam Vital Signs VS - Last 72 Hours, by Label 09/03/18 09/03/18 09/03/18 09/03/18 14:47 14:55 18:06 18:30 Temp 98.8 Pulse 115 101 Resp 20 26 B/P (MAP) 136/79 (98) 112/71 (85) Pulse Ox 93 95 96 97 O2 Delivery Room Air Nasal Cannula Nasal Cannula Nasal Cannula O2 Flow Rate 2.00 2.00 3.00 09/03/18 09/03/18 09/03/18 09/03/18 19:46 20:00 20:00 21:04 Temp 96.5 Pulse 115 130 Resp 16 B/P (MAP) 147/87 (107) Pulse Ox 93 93 92 O2 Delivery Nasal Cannula Nasal Cannula Nasal Cannula O2 Flow Rate 3.00 2.00 2.00 FiO2 21 09/04/18 09/04/18 09/04/18 09/04/18 00:00 03:19 04:00 06:29 Temp 97.8 97.0 Pulse 74 81 Resp 18 18 B/P (MAP) 111/64 (80) 100/62 (75) Pulse Ox 95 87 97 92 O2 Delivery Nasal Cannula Nasal Cannula Nasal Cannula Nasal Cannula O2 Flow Rate 2.00 2.00 3.00 3.00 09/04/18 09/04/18 09/04/18 08:00 11:07 12:00 Temp 97.1 99.0 Pulse 97 90 Resp 20 18 B/P (MAP) 106/62 (77) 109/61 (77) Pulse Ox 94 93 97 O2 Delivery Nasal Cannula Nasal Cannula Nasal Cannula O2 Flow Rate 3.00 3.00 3.00 Capillary Refill : Less Than 3 SecondsLess Than 3 Seconds General Appearance: no apparent distress Respiratory: no accessory muscle use, rhonchi; No wheezing Cardiovascular: regular rate, rhythm, no murmur Gastrointestinal: normal bowel sounds, non tender, soft Extremities: no pedal edema Neurologic/Psychiatric: normal mood/affect Skin: warm/dry Assessment/Plan Assessment/Plan Admission Status: Inpatient Order (span 2 midnights) Reason for Inpatient Admission: Pneumonia and influenza with underlying lung disease at high risk of decompensation. (1) Sepsis Status: Acute Assessment & Plan: Secondary to pneumonia. Tachycardic and with leukocytosis on admission. Both resolved this am. Qualifiers: Qualified Codes: A41.9 - Sepsis, unspecified organism (2) Influenza Status: Acute Assessment & Plan: Positive for flu A and B. Possibly already several days into course, but given severe underlying lung disease, will treat with oseltamavir. (3) COPD exacerbation Status: Acute Assessment & Plan: Mild, needing just slight increase in supplemental oxygen and with no wheezing this morning after one dose of solumedrol in ER. RT protocol, if wheezing recurs, may need continued steroid treatment. (4) Rheumatoid arthritis Status: Chronic Assessment & Plan: Hold home meds for now. NSAID for pain. Qualifiers: Qualified Codes: M05.79 - Rheumatoid arthritis with rheumatoid factor of multiple sites without organ or systems involvement (5) Diabetes Status: Chronic Assessment & Plan: Hold home orals and use sliding scale as needed. Diabetic diet. Qualifiers: Qualified Codes: E11.65 - Type 2 diabetes mellitus with hyperglycemia (6) Hypertension Status: Chronic Assessment & Plan: Holding home lisinopril with normal to low BP currently. Qualifiers: Qualified Codes: I10 - Essential (primary) hypertension (7) Hyperlipidemia Status: Chronic Assessment & Plan: Resume home statin. Qualifiers: Qualified Codes: E78.00 - Pure hypercholesterolemia, unspecified (8) Pneumonia Status: Acute Assessment & Plan: Cefepime, respiratory support as noted above. Qualifiers: Qualified Codes: J18.1 - Lobar pneumonia, unspecified organism (9) DVT prophylaxis Status: Acute Assessment & Plan: Enoxaparin Clinical Quality Measures DVT/VTE Risk/Contraindication: Risk Factor Score Per Nursin RFS Level Per Nursing on Admit: 4+=Very High JOSE F REYEZ MD Sep 04, 2018 12:25
[2018-09-04] MEDS: IBUPROFEN 800 MG (MOTRIN) TAB PO SCH ×2 (13:17→17:44)
[2018-09-04] MEDS: ENOXAPARIN 40 MG/0.4 ML (LOVENOX) SYR SC SCH (13:17)
[2018-09-04] MEDS: NS IV 1000 ML 1,000 ML IV SCH (16:04)
[2018-09-04] MEDS ORDERED: ATORVASTATIN 40 MG (LIPITOR) TABLET PO SCH (21:00)
[2018-09-05] MEDS: CEFEPIME 1,000 MG/SWFI 10 ML IV PUSH IV SCH ×6 (00:21→12:40)
[2018-09-05] MEDS: RT-ALBUTEROL/IPRATROPIUM 3 ML (DUONEB) VIAL INH SCH ×4 (03:13→10:23)
[2018-09-05 04:28] VITALS: BP 88/48
--- NOTE | 2018-09-05 04:39 | NUR ---
pt b/p 88/48 hr 60bpm this rn called dr. mahmood to inform her of pt vitals new order ns bolus 1000ml
[2018-09-05] MEDS ORDERED: NS IV 1000 ML 1,000 ML IV ONE (04:45)
--- NOTE | 2018-09-05 05:47 | NUR ---
pt b/p 90/52 hr 59-after 1l bolus of NS this rn called dr. mahmood to up date her no new orders-notify dr. mahmood if pt becomes symptomatic & make sure pt does not take any blood pressure medications until dr. landon sees pt today.
[2018-09-05 05:49] VITALS: BP 90/52
[2018-09-05 06:24] LABS: HEMOGLOBIN 11.8 G/DL (13.3-17.7); MEAN PLATELET VOLUME 10.3 FL (7.4-10.4); RED CELL DISTRIBUTION WIDTH 12.8 % (10.0-14.5); WHITE BLOOD COUNT 12.1 10^3/uL (4.3-11.0)
[2018-09-05] MEDS: IBUPROFEN 800 MG (MOTRIN) TAB PO SCH ×2 (06:42→12:47)
[2018-09-05] MEDS: inSUlin ASPART (NovoLOG) 1 UNIT/0.01 ML (CHARGE PER UNIT) SC SCH ×2 (06:46→10:12)
[2018-09-05 06:58] LABS: BUN/CREATININE RATIO 32; CALCIUM 8.2 MG/DL (8.5-10.1); CARBON DIOXIDE 20 MMOL/L (21-32); CHLORIDE 107 MMOL/L (98-107); CREATININE SERUM 0.73 MG/DL (0.60-1.30); GFR ESTIMATED > 60; GLUCOSE 202 MG/DL (70-105); POTASSIUM 3.5 MMOL/L (3.6-5.0); SODIUM 137 MMOL/L (135-145)
[2018-09-05 08:00] VITALS: BP 101/63
[2018-09-05] MEDS ORDERED: NS IV 1000 ML 1,000 ML IV SCH (08:30)
[2018-09-05] MEDS: OSELTAMIVIR 75 MG (TAMIFLU) CAPSULE PO SCH (09:21)
[2018-09-05] MEDS ORDERED: CEFD300C3 PO (10:52)
[2018-09-05] MEDS ORDERED: OSLT75C PO (10:52)
[2018-09-05 12:00] VITALS: BP 104/59
[2018-09-05] MEDS: ENOXAPARIN 40 MG/0.4 ML (LOVENOX) SYR SC SCH (12:47)
[2018-09-05] MEDS: NS IV 1000 ML 1,000 ML IV SCH (12:47)
--- NOTE | 2018-09-05 12:55 | NUR ---
BP 104/59; MESSAGED DR. VALLEJO AND ASKED IF WE ARE CONTINUING W DISCHARGE HOME. WAITING FOR REPLY
[2018-09-05 14:01] VITALS: BP 104/59
--- NOTE | 2018-09-07 11:21 | Physician Query-Final Dx ---
ARYAN GALLARDO 09/07/18 1121: Final Diagnosis Give Final Diagnosis Please give Final Diagnosis JOSE F VALLEJO MD 09/07/18 1656: Final Diagnosis Give Final Diagnosis Influenza A and B ARYAN GALLARDO Sep 07, 2018 11:21 JOSE F VALLEJO MD Sep 07, 2018 16:56
--- NOTE | 2018-09-20 08:38 | Discharge Summary ---
Diagnosis/Chief Complaint Date of Admission Sep 03, 2018 at 16:44 Date of Discharge Sep 05, 2018 at 13:55 Admission Diagnosis Admission Diagnosis See problem list Discharge Diagnosis Influenza A and B Problems/Diagnosis: (1) Sepsis Assessment & Plan: Secondary to pneumonia. Tachycardic and with leukocytosis on admission. Both resolved this am. Qualifiers: Qualified Codes: A41.9 - Sepsis, unspecified organism Status: Acute (2) Influenza Assessment & Plan: Positive for flu A and B. Possibly already several days into course, but given severe underlying lung disease, will treat with oseltamavir. Status: Acute (3) COPD exacerbation Assessment & Plan: Mild, needing just slight increase in supplemental oxygen and with no wheezing this morning after one dose of solumedrol in ER. RT protocol. Status: Acute (4) Rheumatoid arthritis Assessment & Plan: Hold home meds for now. NSAID for pain. Qualifiers: Qualified Codes: M05.79 - Rheumatoid arthritis with rheumatoid factor of multiple sites without organ or systems involvement Status: Chronic (5) Diabetes Assessment & Plan: Hold home orals and use sliding scale as needed. Diabetic diet. Qualifiers: Qualified Codes: E11.65 - Type 2 diabetes mellitus with hyperglycemia Status: Chronic (6) Hypertension Assessment & Plan: Holding home lisinopril with normal to low BP currently. Qualifiers: Qualified Codes: I10 - Essential (primary) hypertension Status: Chronic (7) Hyperlipidemia Assessment & Plan: Resume home statin. Qualifiers: Qualified Codes: E78.00 - Pure hypercholesterolemia, unspecified Status: Chronic (8) Pneumonia Assessment & Plan: Cefepime, respiratory support as noted above. Qualifiers: Qualified Codes: J18.1 - Lobar pneumonia, unspecified organism Status: Acute Chief Complaint/HPI Chief Complaint/HPI 63 yo male presented to ER after noting onset of nasal congestion and cough with green mucous starting on Monday (about 4 days ago). He thinks he has had fever on and off. He denies significant increase in shortness of breath compared to baseline. He has COPD and pulmonary fibrosis and uses 2 lpm supplemental oxygen at all times. Discharge Summary-Simple/Stand Consultations Discharge Physical Examination Allergies: Coded Allergies: celecoxib (Unverified Allergy, Unknown, 09/03/18) UPSET STOMACH naproxen (Unverified Allergy, Unknown, 09/03/18) UPSET STOMACH General Appearance: Alert, No Acute Distress Respiratory: Other (ronchi, no wheezing or rales or increased respiratory effort) Abdominal: Normal Bowel Sounds, Soft Neuro: Normal Speech Psych/Mental Status: Mental Status NL Hospital Course See final discharge diagnosis. Radiology Reviewed CXR 09/03/18: IMPRESSION: Chronic fibrotic lung disease present with new perihilar increased parenchymal densities, given the history presumptively reflective of pneumonia superimposed. Discharge Instructions to patient/family Please see electronic discharge instructions given to patient. Discharge Medications Reviewed and agree with Discharge Medication list on patient's Discharge Instruction sheet Clinical Quality Measures DVT/VTE Risk/Contraindication: Risk Factor Score Per Nursin RFS Level Per Nursing on Admit: 4+=Very High JOSE F VALLEJO MD Sep 20, 2018 08:38
== END 2018-09-05 13:55 | disposition home or self-care (01) | DRG 871 ==
LOC: EDUNIT# 14:43 → ER 14:44 → 4TH 16:44
PROVIDERS: ADMIT Family Medicine; ATTEND Family Medicine
DX: A41.9 Sepsis, unspecified organism (principal); J10.00 Influenza due to other identified influenza virus with unspecified type of pneumonia; J18.1 Lobar pneumonia, unspecified organism; J44.1 Chronic obstructive pulmonary disease with (acute) exacerbation; J44.0 Chronic obstructive pulmonary disease with (acute) lower respiratory infection; J84.10 Pulmonary fibrosis, unspecified; F17.210 Nicotine dependence, cigarettes, uncomplicated; I10 Essential (primary) hypertension; E11.65 Type 2 diabetes mellitus with hyperglycemia; E78.5 Hyperlipidemia, unspecified; M06.9 Rheumatoid arthritis, unspecified; L40.9 Psoriasis, unspecified; Z79.84 Long term (current) use of oral hypoglycemic drugs; Z79.899 Other long term (current) drug therapy
CPT/HCPCS: 36415; 71045; 80048; 80053; 82962; 83605; 85007; 85025; 85027; 85610; 85730; 87040; 87804; 93005; 94640; 94760; 96361; 96365; 96375

== ENCOUNTER 2018-09-22 15:17 | Emergency (ER) | payer MEDICAID ==
[~2018-09-22] VITALS: Ht 170.2 cm; Wt 99.8 kg
[~2018-09-22 15:17] MED LIST changes: +CALC60OI3 TOP; +CANA100T PO; +CEFD300C3 PO; +METH2.5T PO; +OSLT75C PO
[2018-09-22 17:43] LABS: BASOPHILS % (AUTO) 1 % (0-10); EOSINOPHILS % (AUTO) 0 % (0-10); HEMATOCRIT 48 % (40-54); HEMOGLOBIN 15.7 G/DL (13.3-17.7); LYMPHOCYTES % (AUTO) 13 % (12-44); MEAN CORPUSCULAR HEMOGLOBIN 30 PG (25-34); MEAN CORPUSCULAR HGB CONC 33 G/DL (32-36); MEAN CORPUSCULAR VOLUME 92 FL (80-99); MONOCYTES % (AUTO) 13 % (0-12); NEUTROPHILS # (AUTO) 5.4 X 10^3 (1.8-7.8); NEUTROPHILS % (AUTO) 73 % (42-75); PLATELET COUNT 256 10^3/uL (130-400); RED CELL DISTRIBUTION WIDTH 14.1 % (10.0-14.5); WHITE BLOOD COUNT 7.4 10^3/uL (4.3-11.0)
[2018-09-22 17:54] LABS: ALANINE AMINOTRANSFERASE 38 U/L (0-55); ALBUMIN 3.9 GM/DL (3.2-4.5); ALKALINE PHOSPHATASE 101 U/L (40-136); BILIRUBIN,TOTAL 1.1 MG/DL (0.1-1.0); BUN/CREATININE RATIO 20; CALCIUM 9.2 MG/DL (8.5-10.1); CARBON DIOXIDE 23 MMOL/L (21-32); CHLORIDE 96 MMOL/L (98-107); CREATININE SERUM 1.06 MG/DL (0.60-1.30); GFR ESTIMATED > 60; GLUCOSE 151 MG/DL (70-105); POTASSIUM 4.2 MMOL/L (3.6-5.0); SODIUM 132 MMOL/L (135-145); TOTAL PROTEIN 7.9 GM/DL (6.4-8.2)
--- NOTE | 2018-09-22 18:12 | Diagnostic Imaging Report ---
INDICATION: Cough. Recent history of flu and pneumonia. COMPARISON: 09/03/2018. EXAMINATION: Frontal and lateral radiographic views of the chest were obtained. FINDINGS: Again demonstrated are scattered areas of coarse interstitial opacities. Overall appearance is stable compared to 09/03/2018, but may be slightly more prominent when compared to more remote exams, particularly 05/06/2017. There is no large effusion or pneumothorax. Cardiac silhouette and pulmonary vasculature are within normal limits. Bony structures show no gross acute abnormality. IMPRESSION: Diffuse coarse interstitial opacities, bilaterally. Given the change when compared to 05/06/2017, appearance on today's exam may be on the basis of acute interstitial pneumonitis or infiltrate superimposed on chronic interstitial lung disease. Other considerations include interval progression of underlying chronic lung disease. Dictated by: Dictated on workstation # [id number]
[2018-09-22] MEDS ORDERED: NS IV 1000 ML 1,000 ML IV ONE (18:38)
[2018-09-22] MEDS ORDERED: DOXY100T2 PO (18:41)
--- NOTE | 2018-09-22 18:44 | ED General ---
General Chief Complaint: Cough/Cold/Flu Symptoms Stated Complaint: COUGH, CHILLS Nursing Triage Note: PATIENT HERE FOR COMPLAINTS OF COUGH AND CHILLS AND SOB X 3 DAYS. Nursing Sepsis Screen: No Definite Risk Source of Information: Patient Exam Limitations: No Limitations History of Present Illness Date Seen by Provider: Sep 22, 2018 Time Seen by Provider: 17:28 Initial Comments This 63-year-old gentleman presents to the emergency room feeling fatigued and chilled for the last 3 days. He also has a cough. He was diagnosed with both influenza A and B and pneumonia and admitted on September 03. He did improve some after dismissal but then worsened again. He continues to smoke despite his respiratory problems and COPD. He uses oxygen at home when necessary. He is afebrile. He reports he finished out the Tamiflu and antibiotics prescribed to him. Patient does use nebulizer treatments at home. Allergies and Home Medications Allergies Coded Allergies: celecoxib (Unverified Allergy, Unknown, 09/03/18) UPSET STOMACH naproxen (Unverified Allergy, Unknown, 09/03/18) UPSET STOMACH Home Medications Albuterol Sulfate 18 Gm Hfa.aer.ad, 2 PUFF IH Q4H PRN for SHORTNESS OF BREATH, ( Reported) Albuterol Sulfate 2.5 Mg/3 Ml Vial.neb, 2.5 MG NEB Q4H PRN for SHORTNESS OF BREATH, (Reported) Atorvastatin Calcium 40 Mg Tablet, 40 MG PO HS, (Reported) Calcipotriene 60 Gm Oint...g., TOP BID PRN for PSORIASIS, (Reported) Canagliflozin 100 Mg Tablet, 100 MG PO DAILY, (Reported) Cefdinir 300 Mg Capsule, 300 MG PO BID Prescribed by: JOSE F VALLEJO on 09/05/18 1052 Doxycycline Hyclate 100 Mg Tablet, 100 MG PO BID Prescribed by: CHAPIN LOPEZ on 09/22/18 1841 Folic Acid 1 Mg Tablet, 1 MG PO DAILY, (Reported) Glipizide 10 Mg Tablet, 10 MG PO BID, (Reported) Hydroxychloroquine Sulfate 200 Mg Tablet, 400 MG PO DAILY, (Reported) LAST FILLED #60 06-15-18 TAKES 2 (200MG) TABLETS Lisinopril 20 Mg Tablet, 20 MG PO DAILY, (Reported) LAST FILLED #30 04-04-18 Methotrexate Sodium 2.5 Mg Tablet, 15 MG PO EVERY OTHER MONDAY, (Reported) TAKES 6 (2.5MG) TABLETS EVERY OTHER MONDAY Oseltamivir Phosphate 75 Mg Cap, 75 MG PO BID Prescribed by: JOSE F VALLEJO on 09/05/18 1052 Piroxicam 20 Mg Capsule, 20 MG PO DAILY, (Reported) Patient Home Medication List Home Medication List Reviewed: Yes Review of Systems Review of Systems Constitutional: see HPI EENTM: no symptoms reported Respiratory: see HPI Cardiovascular: no symptoms reported Gastrointestinal: no symptoms reported Genitourinary: no symptoms reported Musculoskeletal: no symptoms reported Skin: no symptoms reported Psychiatric/Neurological: No Symptoms Reported Hematologic/Lymphatic: No Symptoms Reported Immunological/Allergic: no symptoms reported Past Kisjlhh-Lvpidm-Oguhlh Hx Past Med/Social Hx: Reviewed Nursing Past Med/Soc Hx Patient Social History Alcohol Use: Denies Use Recreational Drug Use: No Smoking Status: Current Everyday Smoker Type Used: Cigarettes 2nd Hand Smoke Exposure: Yes Recent Foreign Travel: No Contact w/Someone Who Travel: No Recent Infectious Disease Expo: No Recent Hopitalizations: No Physical Abuse: No Sexual Abuse: No Immunizations Up To Date Tetanus Booster (TDap): Unknown Date of Pneumonia Vaccine: Jun 01, 2013 Date of Influenza Vaccine: Apr 30, 2018 Seasonal Allergies Seasonal Allergies: No Past Medical History Surgeries: No Respiratory: Yes COPD Currently Using CPAP: No Currently Using BIPAP: No Cardiac: Yes Hypertension Neurological: No Reproductive Disorders: No Genitourinary: No Gastrointestinal: No Musculoskeletal: Yes Rheumatoid Arthritis Endocrine: Yes (TYPE 2 DIABETES) Diabetes, Non-Insulin dep HEENT: No Loss of Vision: Left Cancer: No Psychosocial: No Integumentary: No Psoriasis Blood Disorders: No Adverse Reaction/Blood Tranf: No Family Medical History Cancer G8 SISTER Family history: Diabetes mellitus G8 SISTER Cancer, Diabetes Physical Exam Vital Signs Vital Signs - First Documented 09/22/18 09/22/18 15:45 15:50 Temp 99.5 Pulse 116 Resp 18 B/P (MAP) 107/68 (81) Pulse Ox 91 O2 Delivery Room Air O2 Flow Rate 2.00 Capillary Refill : Less Than 3 Seconds Height, Weight, BMI Height: 5'7.00" Weight: 220lbs. 0oz. 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 Norm as Tested Skin: Normal Color, Warm/Dry Progress/Results/Core Measures Suspected Sepsis Recent Fever Within 48 Hours: No Infection Criteria Present: Suspected New Infection New/Unexplained Altered Menta: No Sepsis Screen: No Definite Risk SIRS Temperature:99.5 Pulse: 116 Respiratory Rate: 18 Laboratory Tests 09/22/18 15:55: White Blood Count 7.4 Blood Pressure 107 /68 Mean: 81 Laboratory Tests 09/22/18 15:55: Creatinine 1.06, Platelet Count 256, Total Bilirubin 1.1H Results/Orders Lab Results Laboratory Tests Test 09/22/18 15:55 Range/Units White Blood Count 7.4 4.3-11.0 10^3/uL Red Blood Count 5.17 4.35-5.85 10^6/uL Hemoglobin 15.7 13.3-17.7 G/DL Hematocrit 48 40-54 % Mean Corpuscular Volume 92 80-99 FL Mean Corpuscular Hemoglobin 30 25-34 PG Mean Corpuscular Hemoglobin Concent 33 32-36 G/DL Red Cell Distribution Width 14.1 10.0-14.5 % Platelet Count 256 130-400 10^3/uL Mean Platelet Volume 11.0 H 7.4-10.4 FL Neutrophils (%) (Auto) 73 42-75 % Lymphocytes (%) (Auto) 13 12-44 % Monocytes (%) (Auto) 13 H 0-12 % Eosinophils (%) (Auto) 0 0-10 % Basophils (%) (Auto) 1 0-10 % Neutrophils # (Auto) 5.4 1.8-7.8 X 10^3 Lymphocytes # (Auto) 1.0 1.0-4.0 X 10^3 Monocytes # (Auto) 1.0 0.0-1.0 X 10^3 Eosinophils # (Auto) 0.0 0.0-0.3 10^3/uL Basophils # (Auto) 0.0 0.0-0.1 10^3/uL Sodium Level 132 L 135-145 MMOL/L Potassium Level 4.2 3.6-5.0 MMOL/L Chloride Level 96 L 98-107 MMOL/L Carbon Dioxide Level 23 21-32 MMOL/L Anion Gap 13 5-14 MMOL/L Blood Urea Nitrogen 21 H 7-18 MG/DL Creatinine 1.06 0.60-1.30 MG/DL Estimat Glomerular Filtration Rate > 60 BUN/Creatinine Ratio 20 Glucose Level 151 H 70-105 MG/DL Calcium Level 9.2 8.5-10.1 MG/DL Corrected Calcium 9.3 8.5-10.1 MG/DL Total Bilirubin 1.1 H 0.1-1.0 MG/DL Aspartate Amino Transf (AST/SGOT) 49 H 5-34 U/L Alanine Aminotransferase (ALT/SGPT) 38 0-55 U/L Alkaline Phosphatase 101 40-136 U/L C-Reactive Protein High Sensitivity 7.94 H 0.00-0.50 MG/DL B-Type Natriuretic Peptide 16.7 <100.0 PG/ML Total Protein 7.9 6.4-8.2 GM/DL Albumin 3.9 3.2-4.5 GM/DL Micro Results Microbiology 09/22/18 Influenza Types A,B Antigen ([place]) - Final, Complete My Orders Orders - CHAPIN ROSE MD Influenza A And B Antigens (09/22/18 17:29) Chest Pa/Lat (2 View) (09/22/18 17:29) BNP (09/22/18 17:35) Cbc With Automated Diff (09/22/18 17:35) Comprehensive Metabolic Panel (09/22/18 17:35) Hs C Reactive Protein (09/22/18 17:35) Doxycycline Hyclate Tablet (Vibramycin T (09/22/18 18:45) Saline Lock/Iv-Start (09/22/18 18:38) Ns Iv 1000 Ml (Sodium Chloride 0.9%) (09/22/18 18:38) Medications Given in ED Current Medications Medications Dose Ordered Sig/Sara Route Start Time Stop Time Status Last Admin Dose Admin Doxycycline Hyclate 100 mg ONCE ONCE PO 09/22/18 18:45 09/22/18 18:46 DC 09/22/18 18:47 100 MG Sodium Chloride 1,000 ml @ 0 mls/hr Q0M ONCE IV 09/22/18 18:38 09/22/18 18:40 DC 09/22/18 18:47 999 MLS/HR Vital Signs/I&O 09/22/18 09/22/18 09/22/18 15:45 15:50 19:49 Temp 99.5 99.5 Pulse 116 97 Resp 18 18 B/P (MAP) 107/68 (81) 127/88 (101) Pulse Ox 91 95 O2 Delivery Room Air Nasal Cannula Room Air O2 Flow Rate 2.00 Capillary Refill : Less Than 3 Seconds Blood Pressure Mean: 81 Progress Note : Progress Note Patient was afebrile and had no leukocytosis. However, he is immunocompromised. Workup was pursued and chest x-ray obtained. It is unchanged when compared with prior but there are bilateral interstitial infiltrates. It is uncertain if these are chronic fibrotic changes or persistent infiltrate. CRP was mildly elevated. Because of his risk factors with COPD and immunocompromised state, antibiotics were prescribed. His first dose of doxycycline was given in the ER. He was hydrated with IV fluids as he states his oral intake has been poor recently and he was mildly tachycardic. Patient again tested positive for both influenza A and B. I doubt this is a new infection of both strains of flu. This is likely a hold over from his prior infection. He may be delayed in clearing it due to his immunocompromised state. Diagnostic Imaging Diagonstic Imaging: Xray Plain Films/CT/US/NM/MRI: chest Comments Chest x-ray viewed by me and report reviewed. Compared with prior. See report below: NAME: EMERALD SHAH [facility] REC#: [id number] PT STATUS: REG ER : 1955 PHYSICIAN: CHAPIN ROSE MD ADMIT DATE: 09/22/18/ER Draft Date of Exam:09/22/18 CHEST PA/LAT (2 VIEW) INDICATION: Cough. Recent history of flu and pneumonia. COMPARISON: 09/03/2018. EXAMINATION: Frontal and lateral radiographic views of the chest were obtained. FINDINGS: Again demonstrated are scattered areas of coarse interstitial opacities. Overall appearance is stable compared to 09/03/2018, but may be slightly more prominent when compared to more remote exams, particularly 05/06/2017. There is no large effusion or pneumothorax. Cardiac silhouette and pulmonary vasculature are within normal limits. Bony structures show no gross acute abnormality. IMPRESSION: Diffuse coarse interstitial opacities, bilaterally. Given the change when compared to 05/06/2017, appearance on today's exam may be on the basis of acute interstitial pneumonitis or infiltrate superimposed on chronic interstitial lung disease. Other considerations include interval progression of underlying chronic lung disease. Dictated on workstation # [id number] Dict: 09/22/18 1807 Trans: 09/22/18 1811 [facility] [id number] Interpreted by: WONG BUTLER MD Departure Impression Primary Impression: Bilateral pulmonary infiltrates on chest x-ray Additional Impressions: Influenza COPD (chronic obstructive pulmonary disease) Qualified Codes: J44.9 - Chronic obstructive pulmonary disease, unspecified Disposition: HOME, SELF-CARE Condition: Improved Departure-Patient Inst. Referrals: JOSE F VALLEJO MD (PCP/Family) Primary Care Physician Patient Instructions: Flu, Adult (DC) Add. Discharge Instructions: Drink plenty of clear liquids. Complete the doxycycline antibiotic as prescribed. Follow-up with your primary care provider soon as possible. Discuss a referral to Dr. Stokes (pulmonology) due to your chronic lung problems. Use your other medications and your oxygen as previously prescribed. Return to care if you have worsening symptoms despite treatment. Quit smoking as rapidly as possible. Reduce smoking consumption while you're trying to quit. This will likely have the greatest impact in your overall health. Consider enrolling in the pulmonary rehabilitation program and the smoking cessation class offered by [facility]. See the attached information. All discharge instructions reviewed with patient and/or family. Voiced understanding. Scripts Doxycycline Hyclate (Doxycycline Hyclate) 100 Mg Tablet 100 MG PO BID, #20 TAB Prov: CHAPIN ROSE MD 09/22/18 Copy Copies To 1: JOSE F VALLEJO MD, JOSHUA T MD Sep 22, 2018 18:44
[2018-09-22] MEDS ORDERED: DOXYCYCLINE 100 MG (VIBRAMYCIN) TABLET PO ONE (18:45)
[2018-09-22 19:49] VITALS: BP 127/88
== END 2018-09-22 19:49 | disposition home or self-care (01) ==
LOC: EDUNIT# 15:17 → ER 15:19
DX: J11.1 Influenza due to unidentified influenza virus with other respiratory manifestations (principal); J44.9 Chronic obstructive pulmonary disease, unspecified; R91.8 Other nonspecific abnormal finding of lung field; I10 Essential (primary) hypertension; M06.9 Rheumatoid arthritis, unspecified; E11.9 Type 2 diabetes mellitus without complications; F17.210 Nicotine dependence, cigarettes, uncomplicated; Z88.8 Allergy status to other drugs, medicaments and biological substances; Z79.51 Long term (current) use of inhaled steroids; Z99.81 Dependence on supplemental oxygen; Z79.4 Long term (current) use of insulin
CPT/HCPCS: 36415; 71046; 80053; 83880; 85025; 86141; 87804

== ENCOUNTER 2018-12-22 15:55 | Inpatient (IN) | payer MEDICAID | END 2018-12-24 17:54 | disposition home or self-care (01) | LOC: 4TH 12-23 08:30 → ER 15:55 → ICU 16:20 ==

== ENCOUNTER 2019-01-15 00:55 | Emergency (ER) | payer MEDICAID ==
[~2019-01-15] VITALS: Ht 170.2 cm; Wt 89.8 kg
[~2019-01-15 00:55] MED LIST changes: +ADAL40PE SQ; +TIOT4MIS2 IH
--- NOTE | 2019-01-15 00:55 | NUR ---
PATIENT ARRIVES VIA EMS VERBALIZES "CANT WALK" PATIENT MADE COMFORTABLE IN BED WITH CALL LIGHT IN REACH.
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
[2019-01-15] MEDS ORDERED: methylPREDNISolone 125 MG (Solu-MEDROL) VIAL IVP ONE (01:15)
--- NOTE | 2019-01-15 01:39 | NUR ---
IN ROOM TO GIVE ORDERED MEDICATION, PATIENT IS RESTING AT THIS TIME DENIES NEEDS. CALL LIGHT IN PLACE, WILL CONTINUE TO MONITOR.
[2019-01-15 01:41] LABS: BASOPHILS % (AUTO) 0 % (0-10); EOSINOPHILS # (AUTO) 0.2 10^3/uL (0.0-0.3); EOSINOPHILS % (AUTO) 2 % (0-10); HEMATOCRIT 40 % (40-54); HEMOGLOBIN 13.1 G/DL (13.3-17.7); LYMPHOCYTES # (AUTO) 1.4 X 10^3 (1.0-4.0); LYMPHOCYTES % (AUTO) 12 % (12-44); MEAN CORPUSCULAR HEMOGLOBIN 29 PG (25-34); MEAN CORPUSCULAR HGB CONC 33 G/DL (32-36); MEAN CORPUSCULAR VOLUME 88 FL (80-99); MEAN PLATELET VOLUME 9.5 FL (7.4-10.4); MONOCYTES % (AUTO) 9 % (0-12); NEUTROPHILS # (AUTO) 8.9 X 10^3 (1.8-7.8); NEUTROPHILS % (AUTO) 77 % (42-75); PLATELET COUNT 317 10^3/uL (130-400); WHITE BLOOD COUNT 11.5 10^3/uL (4.3-11.0)
[2019-01-15 01:59] LABS: ALANINE AMINOTRANSFERASE 13 U/L (0-55); ALBUMIN 3.6 GM/DL (3.2-4.5); ALKALINE PHOSPHATASE 78 U/L (40-136); BILIRUBIN,TOTAL 0.9 MG/DL (0.1-1.0); BUN/CREATININE RATIO 17; CALCIUM 9.7 MG/DL (8.5-10.1); CARBON DIOXIDE 20 MMOL/L (21-32); CHLORIDE 100 MMOL/L (98-107); CREATININE SERUM 0.89 MG/DL (0.60-1.30); GFR ESTIMATED > 60; GLUCOSE 140 MG/DL (70-105); POTASSIUM 4.5 MMOL/L (3.6-5.0); SODIUM 133 MMOL/L (135-145); TOTAL PROTEIN 7.5 GM/DL (6.4-8.2)
[2019-01-15 02:02] LABS: ERYTHROCYTE SEDIMENTATION RATE 57 MM/HR (0-30)
[2019-01-15 02:02] LABS: AMPHETAMINE SCREEN, URINE NEGATIVE (NEGATIVE); BARBITURATE SCREEN URINE NEGATIVE (NEGATIVE); BENZODIAZEPINES SCREEN URINE NEGATIVE (NEGATIVE); CANNABINOID SCREEN, URINE NEGATIVE (NEGATIVE); COCAINE SCREEN URINE NEGATIVE (NEGATIVE); METHADONE STAT NEGATIVE (NEGATIVE); METHAMPHETAMINE SCREEN URINE S NEGATIVE (NEGATIVE); OPIATE SCREEN URINE NEGATIVE (NEGATIVE); OXYCODONE STAT NEGATIVE (NEGATIVE); PROPOXYPHENE STAT NEGATIVE (NEGATIVE); TRICYCLIC ANTIDEPRESSANTS SCRE NEGATIVE (NEGATIVE)
--- NOTE | 2019-01-15 02:26 | ED General ---
General Chief Complaint: General Problems/Pain Stated Complaint: ARTHRITIS Nursing Triage Note: Pt to room #5 via cc ems cart from home with c/o arthritic pain to rt knee, rt shoulder, and rt ankle. Reports decreased appetite and inability to walk. Pt reports he has not taken any medication for his pain. Tympanic temp 100.8. Nursing Sepsis Screen: No Definite Risk Source of Information: Patient (PT IS LIMITED HISTORIAN--DOESN'T KNOW HIS MEDICATIONS OR HIS ALLERGIES, OR MOST OF HIS MEDICAL CONDITIONS), Old Records History of Present Illness Date Seen by Provider: Jan 15, 2019 Time Seen by Provider: 00:03 Initial Comments PT ARRIVES VIA EMS FROM HOME PT STATES "ARTHRITIS" PT STATES HE HURTS ALL OVER, BUT IS WORST IN RIGHT ANKLE, RIGHT KNEE, RIGHT SHOULDER ALL ARE CHRONIC FOR YEARS, AND STATES THIS IS NO DIFFERENT THAN WHAT HE HAS HAD IN THE PAST UNABLE TO STATE WHEN IT GOT WORSE STATES HE "CAN'T WALK" DUE TO PAIN PT STATES HE HAS HAD A DECREASED APPETITE DUE TO PAIN BUT DENIES NAUSEA/VOMITING/DIARRHEA OR ABDOMINAL PAIN NO PROBLEMS URINATING--STATES HE HAS BEEN URINATING A NORMAL AMOUNT NO INJURY HAS NOT TAKEN ANYTHING FOR PAIN AT ANY TIME PT HAS NOT ATTEMPTED TO SEE HIS DR FOR THIS RECENTLY PT STATES HE HAS RHEUMATOID ARTHRITIS, BUT HAS NEVER SEEN A HOME SUPERVISOR--PT TAKES METHOTREXATE AND PLAQUENIL PT DENIES ANY COUGH/SHORTNESS OF BREATH OR CHEST PAIN PT DENIES RECENT ILLNESS OR FEVER--ON REVIEW OF OLD RECORD, PT WAS ADMITTED 12/22-12/24 FOR PNEUMONIA/SEPSIS--PT STATES THOSE SYMPTOMS HAVE RESOLVED. PT IS DIABETIC, BUT DOES NOT CHECK HIS BLOOD SUGAR PT HAS NOT TAKEN ANY OF HIS MEDICATIONS TODAY. PT HAS COPD AND IS ON HOME O2 AT /MO PCP: DR. VALLEJO AND DR. Sarah SCHRADER AT [facility] Allergies and Home Medications Allergies Coded Allergies: celecoxib (Unverified Allergy, Unknown, 12/22/18) UPSET STOMACH naproxen (Unverified Allergy, Unknown, 12/22/18) UPSET STOMACH Home Medications Albuterol Sulfate 18 Gm Hfa.aer.ad, 2 PUFF IH Q4H PRN for SHORTNESS OF BREATH, (Reported) Albuterol Sulfate 2.5 Mg/3 Ml Vial.neb, 2.5 MG NEB Q4H PRN for SHORTNESS OF BREATH, (Reported) Atorvastatin Calcium 40 Mg Tablet, 40 MG PO HS, (Reported) Calcipotriene 60 Gm Oint...g., TOP BID PRN for PSORIASIS, (Reported) Canagliflozin 100 Mg Tablet, 100 MG PO DAILY, (Reported) Cefdinir 300 Mg Capsule, 300 MG PO BID Prescribed by: JOSE F VALLEJO on 12/24/18 121 Fluticasone/Salmeterol 1 Each Blst.w.dev, 1 EACH IH BID, (Reported) Folic Acid 1 Mg Tablet, 1 MG PO DAILY, (Reported) Glipizide 10 Mg Tablet, 10 MG PO BID, (Reported) Lisinopril 20 Mg Tablet, 20 MG PO DAILY, (Reported) LAST FILLED #30 04-04-18 Methotrexate Sodium 2.5 Mg Tablet, 15 MG PO EVERY OTHER MONDAY, (Reported) TAKES 6 (2.5MG) TABLETS EVERY OTHER MONDAY Piroxicam 20 Mg Capsule, 20 MG PO DAILY, (Reported) Prednisone 10 Mg Tab, 0 PO UD Take 6 tabs(60mg)daily, decrease by 1 tab(10mg) every other day. Prescribed by: JOSE F VALLEJO on 12/24/181218 Prednisone 10 Mg Tab, 40 MG PO DAILY Prescribed by: ZAHRAA MCDONALD on 01/15/19 0256 Tiotropium [place] 4 Gm Mist.inhal, 2 PUFF IH DAILY, (Reported) Patient Home Medication List Home Medication List Reviewed: Yes Review of Systems Review of Systems Constitutional: no symptoms reported; No chills, No diaphoresis, No dizziness, No fever, No malaise, No weakness; other (DECREASED APPETITE) EENTM: no symptoms reported Respiratory: no symptoms reported; No cough, No short of breath Cardiovascular: no symptoms reported; No chest pain, No edema, No palpitations, No syncope Gastrointestinal: see HPI; No constipation, No diarrhea; loss of appetite; No nausea, No vomiting Genitourinary: no symptoms reported Musculoskeletal: see HPI, joint pain Skin: no symptoms reported Psychiatric/Neurological: No Symptoms Reported; Denies Headache, Denies Numbness, Denies Paresthesia Hematologic/Lymphatic: No Symptoms Reported Past Fbbhmty-Onzxis-Xslqwp Hx Patient Social History Alcohol Use: Denies Use Recreational Drug Use: No Smoking Status: Current Everyday Smoker (2 PPD) Type Used: Cigarettes 2nd Hand Smoke Exposure: Yes Recent Foreign Travel: No Contact w/Someone Who Travel: No Recent Infectious Disease Expo: No Recent Hopitalizations: No Immunizations Up To Date Tetanus Booster (TDap): Unknown Date of Pneumonia Vaccine: Jun 01, 2013 Date of Influenza Vaccine: Apr 30, 2018 Seasonal Allergies Seasonal Allergies: No Past Medical History Surgeries: Yes (COLONOSCOPY/POLYPECTOMY) Respiratory: Yes (HOME O2 AT 2L/NC) Pneumonia, COPD Currently Using CPAP: No Currently Using BIPAP: No Cardiac: Yes High Cholesterol, Hypertension Neurological: No Reproductive Disorders: No Genitourinary: No Gastrointestinal: No Musculoskeletal: Yes Rheumatoid Arthritis Endocrine: Yes (TYPE 2 DIABETES) Diabetes, Non-Insulin dep 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 7.7oz. 89.229370jb; 30.9 BMI Method:Stated General Appearance: No Apparent Distress, WD/WN, Other (SMILING, TALKING NON- STOP ON ARRIVAL, HE IS BEING WHEELED INTO ER BY EMS, THEN LAYS COMPLETELY OUTSTRETCHED WITH ARMS OVERHEAD, DOES NOT APPEAR TO BE IN ANY DISCOMFORT OR DISTRESS. REEKS OF CIGARETTES; ) Neck: Normal Inspection Respiratory: Normal Breath Sounds, No Accessory Muscle Use, No Respiratory Distress Cardiovascular: Regular Rate, Rhythm, No Edema, No JVD, No Murmur, Normal Peripheral Pulses Gastrointestinal: Non Tender, Soft Back: Normal Inspection, No CVA Tenderness Extremity: Normal Capillary Refill, Normal Range of Motion, No Pedal Edema, Other (TENDERNESS TO LARGE JOINTS, INCLUDING RIGHT ANKLE, RIGHT KNEE, RIGHT SHOULDER--YET IS LAYING ON HIS RIGHT SIDE AT TIMES. NO WARMTH OR ERYTHEMA TO JOINTS. 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35-5.85 10^6/uL Hemoglobin 13.1 L 13.3-17.7 G/DL Hematocrit 40 40-54 % Mean Corpuscular Volume 88 80-99 FL Mean Corpuscular Hemoglobin 29 25-34 PG Mean Corpuscular Hemoglobin Concent 33 32-36 G/DL Red Cell Distribution Width 15.0 H 10.0-14.5 % Platelet Count 317 130-400 10^3/uL Mean Platelet Volume 9.5 7.4-10.4 FL Neutrophils (%) (Auto) 77 H 42-75 % Lymphocytes (%) (Auto) 12 12-44 % Monocytes (%) (Auto) 9 0-12 % Eosinophils (%) (Auto) 2 0-10 % Basophils (%) (Auto) 0 0-10 % Neutrophils # (Auto) 8.9 H 1.8-7.8 X 10^3 Lymphocytes # (Auto) 1.4 1.0-4.0 X 10^3 Monocytes # (Auto) 1.0 0.0-1.0 X 10^3 Eosinophils # (Auto) 0.2 0.0-0.3 10^3/uL Basophils # (Auto) 0.0 0.0-0.1 10^3/uL Erythrocyte Sedimentation Rate 57 H 0-30 MM/HR Sodium Level 133 L 135-145 MMOL/L Potassium Level 4.5 3.6-5.0 MMOL/L Chloride Level 100 98-107 MMOL/L Carbon Dioxide Level 20 L 21-32 MMOL/L Anion Gap 13 5-14 MMOL/L Blood Urea Nitrogen 15 7-18 MG/DL Creatinine 0.89 0.60-1.30 MG/DL Estimat Glomerular Filtration Rate > 60 BUN/Creatinine Ratio 17 Glucose Level 140 H 70-105 MG/DL Calcium Level 9.7 8.5-10.1 MG/DL Corrected Calcium 10.0 8.5-10.1 MG/DL Total Bilirubin 0.9 0.1-1.0 MG/DL Aspartate Amino Transf (AST/SGOT) 12 5-34 U/L Alanine Aminotransferase (ALT/SGPT) 13 0-55 U/L Alkaline Phosphatase 78 40-136 U/L Total Protein 7.5 6.4-8.2 GM/DL Albumin 3.6 3.2-4.5 GM/DL Serum Alcohol < 10 <10 MG/DL Urine Opiates Screen NEGATIVE NEGATIVE Urine Oxycodone Screen NEGATIVE NEGATIVE Urine Methadone Screen NEGATIVE NEGATIVE Urine Propoxyphene Screen NEGATIVE NEGATIVE Urine Barbiturates Screen NEGATIVE NEGATIVE Ur Tricyclic Antidepressants Screen NEGATIVE NEGATIVE Urine Phencyclidine Screen NEGATIVE NEGATIVE Urine Amphetamines Screen NEGATIVE NEGATIVE Urine Methamphetamines Screen NEGATIVE NEGATIVE Urine Benzodiazepines Screen NEGATIVE NEGATIVE Urine Cocaine Screen NEGATIVE NEGATIVE Urine Cannabinoids Screen NEGATIVE NEGATIVE My Orders Orders - ZAHRAA MCDONALD DO Ed Iv/Invasive Line Start (01/15/19 01:04) Alcohol (01/15/19 01:04) Cbc With Automated Diff (01/15/19 01:04) Comprehensive Metabolic Panel (01/15/19 01:04) Erythrocyte Sedimentation Rate (01/15/19 01:04) Drug Screen Stat (Urine) (01/15/19 01:04) Methylprednisolone Sod Succ (Solu-Medrol (01/15/19 01:15) Medications Given in ED Current Medications Medications Dose Ordered Sig/Sara Route Start Time Stop Time Status Last Admin Dose Admin Methylprednisolone Sodium Succinate 125 mg ONCE ONCE IVP 01/15/19 01:15 01/15/19 01:16 DC 01/15/19 01:39 125 MG Vital Signs/I&O 01/15/19 01/15/19 00:55 03:50 Temp 100.8 99.3 Pulse 110 110 Resp 18 18 B/P (MAP) 92/71 (78) 122/67 (85) Pulse Ox 96 96 O2 Delivery Nasal Cannula O2 Flow Rate 2.00 2.00 Capillary Refill : Less Than 3 Seconds Blood Pressure Mean: 78 Progress Note : Progress Note UNEVENTFUL ER STAY PT DID NOT HAVE ANY PAIN COMPLAINTS OR COMPLAINTS OF ANY KIND DURING REMAINDER OF ER STAY PT RESTED QUIETLY FOR ENTIRE ER STAY. Departure Impression Primary Impression: Chronic pain Additional Impressions: Hx of rheumatoid arthritis NIDDM Disposition: HOME, SELF-CARE Condition: Stable Departure-Patient Inst. Referrals: JOSE F VALLEJO MD (PCP/Family) Primary Care Physician Patient Instructions: CHRONIC PAIN, DIABETES, Rheumatoid Arthritis (DC) Add. Discharge Instructions: TAKE YOUR MEDICATIONS PRESCRIBED FOLLOW UP WITH [facility] THIS WEEK FOR FURTHER CARE All discharge instructions reviewed with patient and/or family. Voiced understanding. Scripts Prednisone (Prednisone) 10 Mg Tab 40 MG PO DAILY, #12 TAB Prov: ZAHRAA MCDONALD DO 01/15/19 ZAHRAA MCDONALD DO Jan 15, 2019 02:26
[2019-01-15] MEDS ORDERED: PRD10T PO ×2 (02:55→02:56)
--- NOTE | 2019-01-15 03:00 | NUR ---
WARM BLANKET PROVIDED
[2019-01-15 03:50] VITALS: BP 122/67
--- NOTE | 2019-01-15 03:50 | NUR ---
PATIENT TAKEN IN WHEEL CHAIR TO LOBBY TO WAIT FOR HIS RIDE. VERBALIZED UNDERSTANDING OF DISCHARGE INSTRUCTIONS AND TO POWER SYSTEM DISPATCHER PRESCRIPTION IN THE MORNING
== END 2019-01-15 03:50 | disposition home or self-care (01) ==
LOC: EDUNIT# 00:55 → ER 00:56
DX: G89.29 Other chronic pain (principal); M06.9 Rheumatoid arthritis, unspecified; E11.9 Type 2 diabetes mellitus without complications; E78.00 Pure hypercholesterolemia, unspecified; I10 Essential (primary) hypertension; J44.9 Chronic obstructive pulmonary disease, unspecified; F17.210 Nicotine dependence, cigarettes, uncomplicated; Z99.81 Dependence on supplemental oxygen; Z86.010 Personal history of colon polyps; Z87.01 Personal history of pneumonia (recurrent); Z88.1 Allergy status to other antibiotic agents; Z88.8 Allergy status to other drugs, medicaments and biological substances; Z79.51 Long term (current) use of inhaled steroids; Z79.4 Long term (current) use of insulin; Z79.52 Long term (current) use of systemic steroids
CPT/HCPCS: 36415; 80053; 80306; 80320; 85025; 85652; 96374

== ENCOUNTER → 2019-05-28 | Outpatient (CLI) | payer MEDICAID ==
[~2019-05-28] MED LIST changes: -DOXY100T19 PO; +DOXY100T31 PO
--- NOTE | 2019-05-28 12:14 | Diagnostic Imaging Report ---
PROCEDURE: CT chest without contrast. TECHNIQUE: Multiple contiguous axial images were obtained through the chest without the use of intravenous contrast. Auto Exposure Controls were utilized during the CT exam to meet ALARA standards for radiation dose reduction. INDICATION: Productive cough, shortness of air, bloody sputum. COMPARISON: Compared 08/03/2016. FINDINGS: There is progressive heterogeneous air trapping and pulmonary cyst formation with increased diffuse septal thickening and five lobe groundglass opacities. There is some subpleural scarring in the upper lobes bilaterally anteriorly, also having increased. An acute alveolar consolidation was not present. Upper and lower paratracheal mediastinal adenopathy, adenopathy in the AP windows and subcarinal space, as well as bilateral yanet showed mild progression. No discrete soft tissue density lung mass. The visualized upper abdomen nonacute. There is coronary atherosclerotic vascular calcifications. The aorta non-aneurysmal. IMPRESSION: Progressive five lobe interstitial lung disease with mild increased mediastinal lymphadenopathy. An acute consolidating infiltrate superimposed is not found. Dictated by: Dictated on workstation # [id number]
== END ==
LOC: RAD 10:45
PROVIDERS: ATTEND Pediatrics
DX: J84.10 Pulmonary fibrosis, unspecified (principal); J84.9 Interstitial pulmonary disease, unspecified; R59.0 Localized enlarged lymph nodes
CPT/HCPCS: 71250

== ENCOUNTER 2020-08-04 10:35 | Inpatient (IN) | payer MEDICAID ==
[~2020-08-04] VITALS: Ht 170 cm; Wt 90.6 kg
[2020-08-04 11:06] LABS: BASOPHILS # (AUTO) 0.1 10^3/uL (0.0-0.1); BASOPHILS % (AUTO) 0 % (0-10); EOSINOPHILS % (AUTO) 0 % (0-10); HEMATOCRIT 37 % (40-54); HEMOGLOBIN 11.5 g/dL (13.3-17.7); LYMPHOCYTES # (AUTO) 1.1 10^3/uL (1.0-4.0); LYMPHOCYTES % (AUTO) 6 % (12-44); MEAN CORPUSCULAR HEMOGLOBIN 27 pg (25-34); MEAN CORPUSCULAR HGB CONC 31 g/dL (32-36); MEAN CORPUSCULAR VOLUME 87 fL (80-99); MEAN PLATELET VOLUME 9.1 fL (9.0-12.2); MONOCYTES # (AUTO) 1.6 10^3/uL (0.0-1.0); MONOCYTES % (AUTO) 9 % (0-12); NEUTROPHILS # (AUTO) 13.8 10^3/uL (1.8-7.8); NEUTROPHILS % (AUTO) 83 % (42-75); PLATELET COUNT 385 10^3/uL (130-400); WHITE BLOOD COUNT 16.6 10^3/uL (4.3-11.0)
[2020-08-04 11:20] LABS: CHLORIDE 101 MMOL/L (98-107); NEUTROPHILS % (MANUAL) 88 %; POTASSIUM 3.4 MMOL/L (3.6-5.0); SODIUM 133 MMOL/L (135-145)
[2020-08-04 11:21] LABS: BAND NEUTROPHILS 1 %; CALCIUM 8.6 MG/DL (8.5-10.1); LYMPHOCYTES % (MANUAL) 5 %; MONOCYTES % (MANUAL) 6 %; RBC MORPH NORMAL
[2020-08-04 11:22] LABS: GLUCOSE 141 MG/DL (70-105)
[2020-08-04 11:23] LABS: CARBON DIOXIDE 23 MMOL/L (21-32)
[2020-08-04 11:24] LABS: BILIRUBIN,TOTAL 0.9 MG/DL (0.1-1.0)
[2020-08-04 11:26] LABS: ALKALINE PHOSPHATASE 92 U/L (40-136); CREATININE SERUM 0.91 MG/DL (0.60-1.30); GFR ESTIMATED > 60
[2020-08-04 11:27] LABS: BUN/CREATININE RATIO 18
[2020-08-04 11:29] LABS: ALANINE AMINOTRANSFERASE 7 U/L (0-55)
--- NOTE | 2020-08-04 11:29 | Diagnostic Imaging Report ---
INDICATION: Diarrhea and shortness of breath and cough. TECHNIQUE: Frontal chest obtained at 11:20 a.m. and compared to 12/23/2018. FINDINGS: The heart is mildly enlarged. There is some prominence of the right superior mediastinum. This may be due to the portable technique but does appear increased compared to the prior study. The patient has baseline interstitial fibrotic changes throughout both lungs. There appears to be some patchy new infiltrate in the right upper lobe and base. There is no pneumothorax or pleural fluid collection. IMPRESSION: Cardiomegaly. There is chronic interstitial fibrotic change. There is some patchy new infiltrate in the right upper lobe and base which may represent superimposed pneumonia. There is some prominence of the right superior mediastinum, which may in part be due to portable technique but appears increased compared to the prior study. Consider chest CT for further evaluation. Dictated by: Dictated on workstation # [id number]
[2020-08-04 11:31] LABS: FIBRIN DEGRADATION PRODUCTS 10.07 UG/ML (0.00-0.49); INR 1.3 (0.8-1.4); PROTHROMBIN TIME PATIENT 16.8 SEC (12.2-14.7)
[2020-08-04] MEDS ORDERED: LACTATED RINGERS 1,000 ML IV STA ×2 (11:36)
[2020-08-04 11:43] LABS: BILIRUBIN,URINE NEGATIVE (NEGATIVE); CLARITY,URINE CLEAR; COLOR,URINE YELLOW; GLUCOSE, URINE (UA) 3+ (NEGATIVE); KETONES,URINE NEGATIVE (NEGATIVE); LEUKOCYTE ESTERASE ,URINE NEGATIVE (NEGATIVE); NITRITE,URINE NEGATIVE (NEGATIVE); PROTEIN,URINE TRACE (NEGATIVE)
[2020-08-04 11:52] LABS: AMORPHOUS SEDIMENT,UR RARE AMOR URATES /LPF; BACTERIA,URINE TRACE /HPF; RBC,URINE RARE /HPF; SQUAMOUS EPITHELIAL CELL,UR 0-2 /HPF; WBC,URINE RARE /HPF
[2020-08-04 11:53] LABS: HYALINE CASTS, URINE 0-2 /LPF
[2020-08-04] MEDS ORDERED: OSELTAMIVIR 75 MG (TAMIFLU) CAPSULE PO ONE (12:00)
[2020-08-04] MEDS ORDERED: KETOROLAC 30 MG/ML VIAL IVP STA (12:17)
--- NOTE | 2020-08-04 13:17 | NUR ---
CALLED BROTHER TO NOTIFY OF ADMISSION
--- NOTE | 2020-08-04 13:36 | ED General ---
General Chief Complaint: Cough/Cold/Flu Symptoms Stated Complaint: DIARRHEA,SOB, COUGH Nursing Triage Note: PT ARRIVED PER EMS, PT CO OF COLD COUGH AND FEVER FOR 3 DAYS, PT HAS DIARRHEA, PRODUCTIVE COUGH AND MUSCLE ACHES Nursing Sepsis Screen: Possible Severe Sepsis Risk Source of Information: Patient Exam Limitations: No Limitations History of Present Illness Date Seen by Provider: Aug 04, 2020 Time Seen by Provider: 10:31 Initial Comments Here with report of weakness and diarrhea. Patient complains of productive cough and muscle aches. States that he is achy all over his large muscle groups. Lives in the [facility]. States people around him do no t wear the mask. Overall incredibly weak. EMS reports that they did have initial low blood pressure but it responded to fluids. No report of blood in the stool. Timing/Duration: 2-3 Days, Getting Worse Severity: Moderate Associated Systoms: No Chest Pain; Fever/Chills; No Nausea/Vomiting, No Shortness of Air; Weakness Allergies and Home Medications Allergies Coded Allergies: celecoxib (Unverified Allergy, Unknown, 12/22/18) UPSET STOMACH naproxen (Unverified Allergy, Unknown, 12/22/18) UPSET STOMACH Home Medications Albuterol Sulfate 18 Gm Hfa.aer.ad, 2 PUFF IH Q4H PRN for SHORTNESS OF BREATH, (Reported) Albuterol Sulfate 2.5 Mg/3 Ml Vial.neb, 2.5 MG NEB Q4H PRN for SHORTNESS OF BREATH, (Reported) Atorvastatin Calcium 40 Mg Tablet, 40 MG PO HS, (Reported) Calcipotriene 60 Gm Oint...g., TOP BID PRN for PSORIASIS, (Reported) Canagliflozin 100 Mg Tablet, 100 MG PO DAILY, (Reported) Cefdinir 300 Mg Capsule, 300 MG PO BID Prescribed by: JOSE F VALLEJO on 12/24/18 1219 Fluticasone/Salmeterol 1 Each Blst.w.dev, 1 EACH IH BID, (Reported) Folic Acid 1 Mg Tablet, 1 MG PO DAILY, (Reported) Glipizide 10 Mg Tablet, 10 MG PO BID, (Reported) Lisinopril 20 Mg Tablet, 20 MG PO DAILY, (Reported) LAST FILLED #30 04-04-18 Methotrexate Sodium 2.5 Mg Tablet, 15 MG PO EVERY OTHER MONDAY, (Reported) TAKES 6 (2.5MG) TABLETS EVERY OTHER MONDAY Piroxicam 20 Mg Capsule, 20 MG PO DAILY, (Reported) Prednisone 10 Mg Tab, 0 PO UD Take 6 tabs(60mg)daily, decrease by 1 tab(10mg) every other day. Prescribed by: JOSE F VALLEJO on 12/24/18 1219 Prednisone 10 Mg Tab, 40 MG PO DAILY Prescribed by: ZAHRAA MCDONALD on 01/15/19 0256 Tiotropium [place] 4 Gm Mist.inhal, 2 PUFF IH DAILY, (Reported) Patient Home Medication List Home Medication List Reviewed: Yes Review of Systems Review of Systems Constitutional: see HPI, chills, fever, weakness EENTM: No nose congestion, No throat pain Respiratory: cough, short of breath Cardiovascular: No chest pain, No edema Gastrointestinal: diarrhea; No vomiting Genitourinary: decreased output; No dysuria Musculoskeletal: back pain, muscle pain, muscle weakness Skin: no symptoms reported Psychiatric/Neurological: No Symptoms Reported All Other Systems Reviewed Negative Unless Noted: Yes Past Uizgnbv-Uxxrjj-Imlqgb Hx Past Med/Social Hx: Reviewed Nursing Past Med/Soc Hx Patient Social History Recreational Drug Use: No Smoking Status: Former Smoker Type Used: Cigarettes Former Smoker, Quit: Jul 31, 2020 2nd Hand Smoke Exposure: Yes Recent Foreign Travel: No Contact w/Someone Who Travel: No Recent Infectious Disease Expo: Yes Recent Hopitalizations: No Immunizations Up To Date Tetanus Booster (TDap): Unknown Date of Pneumonia Vaccine: Jun 01, 2013 Date of Influenza Vaccine: Apr 30, 2018 Seasonal Allergies Seasonal Allergies: No Past Medical History Surgeries: Yes (COLONOSCOPY/POLYPECTOMY) Respiratory: Yes (HOME O2 AT 2L/NC) Pneumonia, COPD Currently Using CPAP: No Currently Using BIPAP: No Cardiac: Yes High Cholesterol, Hypertension Neurological: No Reproductive Disorders: No Genitourinary: No Gastrointestinal: No Musculoskeletal: Yes Rheumatoid Arthritis Endocrine: Yes (TYPE 2 DIABETES) Diabetes, 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 7.7oz. [id number]; 27.00 BMI Method:Stated General Appearance: Chronically ill, Mild Distress HEENT: PERRL/EOMI, Pharynx Normal Neck: Non Tender, Supple Respiratory: No Respiratory Distress, Crackles, Wheezing (Few trace) Cardiovascular: No Murmur, Tachycardia Gastrointestinal: Non Tender, Soft Back: Normal Inspection, No CVA Tenderness, No Vertebral Tenderness Extremity: Normal Inspection, Normal Range of Motion, Non Tender Neurologic/Psychiatric: Alert, Oriented x3 Skin: normal color, warm/dry Focused Exam Lactate Level 08/04/20 10:52: Lactic Acid Level 2.36*H 08/04/20 13:05: Lactic Acid Level 1.62 Lactic Acid Level Laboratory Tests Test 08/04/20 13:05 Lactic Acid Level 1.62 MMOL/L (0.50-2.00) Progress/Results/Core Measures Suspected Sepsis Recent Fever Within 48 Hours: Yes Infection Criteria Present: Suspected New Infection New/Unexplained Altered Menta: No Sepsis Screen: Possible Severe Sepsis Risk SIRS Temperature: Pulse: 101 Respiratory Rate: 40 Laboratory Tests 08/04/20 10:52: White Blood Count 16.6H Blood Pressure 110 /81 Mean: 91 08/04/20 10:52: Lactic Acid Level 2.36*H 08/04/20 13:05: Lactic Acid Level 1.62 Laboratory Tests 08/04/20 10:52: Creatinine 0.91, INR Comment 1.3, Platelet Count 385, Total Bilirubin 0.9 Results/Orders Lab Results Laboratory Tests Test 08/04/20 10:42 08/04/20 10:52 08/04/20 11:31 08/04/20 12:05 Range/Units Coronavirus 2019 (AZRA) Negative Negative White Blood Count 16.6 H 4.3-11.0 10^3/uL Red Blood Count 4.26 L 4.30-5.52 10^6/uL Hemoglobin 11.5 L 13.3-17.7 g/dL Hematocrit 37 L 40-54 % Mean Corpuscular Volume 87 80-99 fL Mean Corpuscular Hemoglobin 27 25-34 pg Mean Corpuscular Hemoglobin Concent 31 L 32-36 g/dL Red Cell Distribution Width 17.0 H 10.0-14.5 % Platelet Count 385 130-400 10^3/uL Mean Platelet Volume 9.1 9.0-12.2 fL Immature Granulocyte % (Auto) 1 % Neutrophils (%) (Auto) 83 H 42-75 % Lymphocytes (%) (Auto) 6 L 12-44 % Monocytes (%) (Auto) 9 0-12 % Eosinophils (%) (Auto) 0 0-10 % Basophils (%) (Auto) 0 0-10 % Neutrophils # (Auto) 13.8 H 1.8-7.8 10^3/uL Lymphocytes # (Auto) 1.1 1.0-4.0 10^3/uL Monocytes # (Auto) 1.6 H 0.0-1.0 10^3/uL Eosinophils # (Auto) 0.0 0.0-0.3 10^3/uL Basophils # (Auto) 0.1 0.0-0.1 10^3/uL Immature Granulocyte # (Auto) 0.1 0.0-0.1 10^3/uL Neutrophils % (Manual) 88 % Lymphocytes % (Manual) 5 % Monocytes % (Manual) 6 % Band Neutrophils 1 % Blood Morphology Comment NORMAL Prothrombin Time 16.8 H 12.2-14.7 SEC INR Comment 1.3 0.8-1.4 Activated Partial Thromboplast Time 35 24-35 SEC D-Dimer 10.07 H 0.00-0.49 UG/ML Sodium Level 133 L 135-145 MMOL/L Potassium Level 3.4 L 3.6-5.0 MMOL/L Chloride Level 101 98-107 MMOL/L Carbon Dioxide Level 23 21-32 MMOL/L Anion Gap 9 5-14 MMOL/L Blood Urea Nitrogen 16 7-18 MG/DL Creatinine 0.91 0.60-1.30 MG/DL Estimat Glomerular Filtration Rate > 60 BUN/Creatinine Ratio 18 Glucose Level 141 H 70-105 MG/DL Lactic Acid Level 2.36 *H 0.50-2.00 MMOL/L Calcium Level 8.6 8.5-10.1 MG/DL Corrected Calcium 9.4 8.5-10.1 MG/DL Total Bilirubin 0.9 0.1-1.0 MG/DL Aspartate Amino Transf (AST/SGOT) 12 5-34 U/L Alanine Aminotransferase (ALT/SGPT) 7 0-55 U/L Alkaline Phosphatase 92 40-136 U/L C-Reactive Protein High Sensitivity 22.69 H 0.00-0.50 MG/DL Total Protein 8.0 6.4-8.2 GM/DL Albumin 3.0 L 3.2-4.5 GM/DL Procalcitonin 2.41 H <0.10 NG/ML Urine Color YELLOW Urine Clarity CLEAR Urine pH 6.0 5-9 Urine Specific [place] 1.020 1.016-1.022 Urine Protein TRACE H NEGATIVE Urine Glucose (UA) 3+ H NEGATIVE Urine Ketones NEGATIVE NEGATIVE Urine Nitrite NEGATIVE NEGATIVE Urine Bilirubin NEGATIVE NEGATIVE Urine Urobilinogen 0.2 < = 1.0 MG/DL Urine Leukocyte Esterase NEGATIVE NEGATIVE Urine RBC (Auto) NEGATIVE NEGATIVE Urine RBC RARE /HPF Urine WBC RARE /HPF Urine Squamous Epithelial Cells 0-2 /HPF Urine Crystals PRESENT H /LPF Urine Amorphous Sediment RARE IVIS URATES H /LPF Urine Bacteria TRACE /HPF Urine Casts PRESENT /LPF Urine Hyaline Casts 0-2 H /LPF Urine Mucus SMALL H /LPF Urine Culture Indicated CULTURE PENDING Test 08/04/20 13:05 Range/Units Lactic Acid Level 1.62 0.50-2.00 MMOL/L Micro Results Microbiology 08/04/20 Influenza Types A,B Antigen ([place]) - Final, Complete My Orders Orders - LEONEL LOPEZ MD Cbc With Automated Diff (08/04/20 10:38) Comprehensive Metabolic Panel (08/04/20 10:38) Blood Culture (08/04/20 10:38) Sputum Culture (08/04/20 10:38) Urinalysis (08/04/20 10:38) Urine Culture (08/04/20 10:38) Protime With Inr (08/04/20 10:38) Partial Thromboplastin Time (08/04/20 10:38) Chest 1 View, Ap/Pa Only (08/04/20 10:38) Ed Iv/Invasive Line Start (08/04/20 10:38) Vital Signs Adult Sepsis Patie Q15M (08/04/20 10:38) O2 (08/04/20 10:38) Remove Rings In Anticipation O (08/04/20 10:38) Lactic Acid Analyzer (08/04/20 10:38) Influenza A And B Antigens (08/04/20 10:38) Fibrin Degradation Products (08/04/20 10:38) Procalcitonin (Pct) (08/04/20 10:38) Hs C Reactive Protein (08/04/20 10:38) Covid 19 Inhouse Test (08/04/20 10:38) Ekg Tracing (08/04/20 10:58) Manual Differential (08/04/20 10:52) Lactated Ringers (Lr 1000 Ml Iv Solution (08/04/20 11:36) Lactated Ringers (Lr 1000 Ml Iv Solution (08/04/20 11:36) Ed Iv/Invasive Line Start (08/04/20 11:36) Oseltamivir 75 Mg Capsule (Tamiflu 75 (08/04/20 12:00) Ketorolac Injection (Toradol Injection) (08/04/20 12:17) Coronavirus Sars-Cov-2 So 2018 (08/04/20 12:05) Ct Angio Chest W (08/04/20 12:45) Iohexol Injection (Omnipaque 350 Mg/Ml 1 (08/04/20 14:00) Received Contrast (Hold Metformin- Contr (08/04/20 14:00) Sodium Chloride Flush (Catheter Flush Sy (08/04/20 14:00) Ns (Ivpb) (Sodium Chloride 0.9% Ivpb Bag (08/04/20 14:00) Piperacillin Sodium/Tazobactam (Zosyn Vi (08/04/20 15:30) Solu-Medrol 125 Mg Iv (08/04/20 16:12) Medications Given in ED Current Medications Medications Dose Ordered Sig/Sara Route Start Time Stop Time Status Last Admin Dose Admin Iohexol 70 ml ONCE ONCE IV 08/04/20 14:00 08/04/20 14:01 DC 08/04/20 13:51 70 ML Oseltamivir Phosphate 75 mg ONCE ONCE PO 08/04/20 12:00 08/04/20 12:01 DC 08/04/20 12:16 75 MG Sodium Chloride 10 ml NEEDED PRN IV 08/04/20 14:00 08/04/20 13:52 10 ML Sodium Chloride 100 ml ONCE ONCE IV 08/04/20 14:00 08/04/20 14:01 DC 08/04/20 13:52 80 ML Vital Signs/I&O 08/04/20 10:35 Temp 38.1 Pulse 101 Resp 40 B/P (MAP) 110/81 (91) Pulse Ox 96 O2 Delivery Room Air Capillary Refill : Less Than 3 Seconds Blood Pressure Mean: 91 Progress Note : Progress Note Seen and evaluated. Sepsis protocol initiated plus COVID-19 evaluation and influenza screen. LR 2 L bolus ordered due to hypotension. He did improve with fluids. 1245: CT angiogram of the chest ordered due to high D-dimer. Tamiflu 75 mg p.o. ordered. Toradol 30 mg IV ordered for pain. Patient will need admission. COVID-19 is still high on concern list although there may also be underlying pneumonia. CT will help discern. Monitor patient. 1600: I have spoken with Dr. Vallejo and she accepts patient for admission, inpatient status for the findings of left lung mass can left lung pneumonia. Also influenza positive. Patient has some findings of severe sepsis but has improved with respect to blood pressure after 2 L of fluid. We will initiate Solu-Medrol IV for the mass. I discussed the case with Dr. Stokes and he accepts patient in co nsult. Complex patient with significant comorbidities with high likelihood for mortality. Zosyn 4.5 g IV initiated. Diagnostic Imaging Diagonstic Imaging: Xray Plain Films/CT/US/NM/MRI: chest Comments [facility]. [place], [place] NAME: EMERALD SHAH [facility] REC#: [id number] PT STATUS: REG ER : 1955 PHYSICIAN: LEONEL LOPEZ MD ADMIT DATE: 08/04/20/ER Draft Date of Exam:08/04/20 CHEST 1 VIEW, AP/PA ONLY INDICATION: Diarrhea and shortness of breath and cough. TECHNIQUE: Frontal chest obtained at 11:20 a.m. and compared to 12/23/2018. FINDINGS: The heart is mildly enlarged. There is some prominence of the right superior mediastinum. This may be due to the portable technique but does appear increased compared to the prior study. The patient has baseline interstitial fibrotic changes throughout both lungs. There appears to be some patchy new infiltrate in the right upper lobe and base. There is no pneumothorax or pleural fluid collection. IMPRESSION: Cardiomegaly. There is chronic interstitial fibrotic change. There is some patchy new infiltrate in the right upper lobe and base which may represent superimposed pneumonia. There is some prominence of the right superior mediastinum, which may in part be due to portable technique but appears increased compared to the prior study. Consider chest CT for further evaluation. Dictated on workstation # [id number] Dict: 08/04/20 1124 Trans: 08/04/20 1129 [id number] Interpreted by: HUMBERTO MARSHALL MD Electronically signed by: Reviewed: Reviewed by Me Diagonstic Imaging: CT Plain Films/CT/US/NM/MRI: chest Comments [place], [place] NAME: EMERALD SHAH [facility] REC#: [id number] PT STATUS: REG ER : 1955 PHYSICIAN: LEONEL LOPEZ MD ADMIT DATE: 08/04/20/ER Signed Date of Exam:08/04/20 CT ANGIO CHEST W PROCEDURE: CT angiography of the chest with contrast. TECHNIQUE: Multiple contiguous axial images were obtained through the chest after uneventful bolus administration of intravenous contrast. 3D reconstructed CTA MIP acquisitions were also performed. Auto Exposure Controls were utilized during the CT exam to meet ALARA standards for radiation dose reduction. DATE: August 04, 2020. COMPARISON: Chest radiograph August 04, 2020. CT chest May 28, 2019. INDICATION: 65-year-old male, diarrhea, shortness of breath, cough. History of pulmonary fibrosis. FINDINGS: There are extensive changes of cystic lung disease. The areas of cystic change do not have an upper lobe predominance. This is also seen on prior CT chest of May 28, 2019. There is nonspecific airspace consolidation in the right upper lobe with presence of some air bronchograms. This is new since May 28, 2019. There is left perihilar masslike opacification extending into the left upper lobe and medial aspect of the left lower lobe. There is also a contiguous left perihilar and subcarinal soft tissue attenuation. Specifically in the left perihilar region and left upper lobe and left lower lobe, this measures roughly 8.7 x 4.6 cm in axial extent as measured on axial image 67. There are bilateral areas of somewhat groundglass lung attenuation with similar appearance to May 28, 2019. This most likely relates to the chronic lung disease. There is a large confluent AP window adenopathy measuring approximately 9.5 x 4.5 cm in axial extent. There is an abnormally enlarged right paratracheal lymph node measuring up to approximately 3.8 cm in short axis and a subcarinal lymph node measuring 2.8 cm in short axis. There are additional abnormally enlarged right paratracheal and left paratracheal lymph nodes as well as anterior mediastinal lymph nodes and bilateral axillary lymph nodes. There are also abnormally enlarged right hilar lymph nodes. There is tapering and mass effect on the right upper lobe pulmonary vessels. There is also some tapering of the left upper lobe pulmonary vessels. There is no identified pulmonary embolus. The main pulmonary artery diameter measures 2.9 cm which is right at the upper limits of normal. The heart is not enlarged. There is no pericardial effusion. There is a low-attenuation right adrenal nodule on axial image 140 which measures 11 mm in size. This is unchanged since May 28, 2019. There is no acute bony abnormality or aggressive bone lesion. IMPRESSION: CT CHEST. 1. Masslike consolidation involving the left upper lobe, left lower lobe contiguously extending into the left hilar and subcarinal region most likely reflecting malignancy. 2. Nonspecific right upper lobe airspace consolidation. This also could relate to additional site of malignancy or other airspace consolidative process including pneumonia. 3. 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 Lymphoma is also in the differential diagnosis. 4. No identified pulmonary embolus. There is some attenuation of the caliber of right upper lobe and left upper lobe pulmonary artery vessels which likely relates to the adjacent consolidative process. 5. 11 mm right adrenal nodule stable since May 28, 2019. 6. Changes of chronic cystic lung disease with unchanged appearance since May 28, 2019. Dictated by: Dictated on workstation # [id number] Dict: 08/04/20 1402 Trans: 08/04/20 1515 [facility] [id number] Interpreted by: JAMIE VIVEROS MD Electronically signed by: JAMIE VIVEROS MD 08/04/20 1515 Departure Communication (Admissions) Time/Spoke to Admitting Phy: 15:40 Time/Spoke to Consulting Phy: 16:00 Impression Primary Impression: Mass of left lung Additional Impressions: Left upper lobe pneumonia Qualified Codes: J18.9 - Pneumonia, unspecified organism Influenza B Severe sepsis Disposition: ADMITTED INPATIENT Condition: Critical Admissions Decision to Admit Reason: Admit from ER (General) Decision to Admit/Date: Aug 04, 2020 Time/Decision to Admit Time: 15:40 Departure-Patient Inst. Referrals: JOSE F VALLEJO MD (PCP/Family) Primary Care Physician LEONEL LOPEZ MD Aug 04, 2020 13:36
[2020-08-04] MEDS ORDERED: HOLD METFORMIN - RECEIVED CONTRAST 20 ML VIAL IV SCH (14:00)
[2020-08-04] MEDS ORDERED: CATHETER FLUSH 10 ML SYR IV PRN (14:00)
[2020-08-04] MEDS ORDERED: IOHEXOL 350 MG/ML 100 ML (OMNIPAQUE 350) VIAL IV ONE (14:00)
[2020-08-04] MEDS ORDERED: NS 100 ML (IVPB) BAG IV ONE (14:00)
--- NOTE | 2020-08-04 14:25 | Diagnostic Imaging Report ---
PROCEDURE: CT angiography of the chest with contrast. TECHNIQUE: Multiple contiguous axial images were obtained through the chest after uneventful bolus administration of intravenous contrast. 3D reconstructed CTA MIP acquisitions were also performed. Auto Exposure Controls were utilized during the CT exam to meet ALARA standards for radiation dose reduction. DATE: August 04, 2020. COMPARISON: Chest radiograph August 04, 2020. CT chest May 28, 2019. INDICATION: 65-year-old male, diarrhea, shortness of breath, cough. History of pulmonary fibrosis. FINDINGS: There are extensive changes of cystic lung disease. The areas of cystic change do not have an upper lobe predominance. This is also seen on prior CT chest of May 28, 2019. There is nonspecific airspace consolidation in the right upper lobe with presence of some air bronchograms. This is new since May 28, 2019. There is left perihilar masslike opacification extending into the left upper lobe and medial aspect of the left lower lobe. There is also a contiguous left perihilar and subcarinal soft tissue attenuation. Specifically in the left perihilar region and left upper lobe and left lower lobe, this measures roughly 8.7 x 4.6 cm in axial extent as measured on axial image 67. There are bilateral areas of somewhat groundglass lung attenuation with similar appearance to May 28, 2019. This most likely relates to the chronic lung disease. There is a large confluent AP window adenopathy measuring approximately 9.5 x 4.5 cm in axial extent. There is an abnormally enlarged right paratracheal lymph node measuring up to approximately 3.8 cm in short axis and a subcarinal lymph node measuring 2.8 cm in short axis. There are additional abnormally enlarged right paratracheal and left paratracheal lymph nodes as well as anterior mediastinal lymph nodes and bilateral axillary lymph nodes. There are also abnormally enlarged right hilar lymph nodes. There is tapering and mass effect on the right upper lobe pulmonary vessels. There is also some tapering of the left upper lobe pulmonary vessels. There is no identified pulmonary embolus. The main pulmonary artery diameter measures 2.9 cm which is right at the upper limits of normal. The heart is not enlarged. There is no pericardial effusion. There is a low-attenuation right adrenal nodule on axial image 140 which measures 11 mm in size. This is unchanged since May 28, 2019. There is no acute bony abnormality or aggressive bone lesion. IMPRESSION: CT CHEST. 1. Masslike consolidation involving the left upper lobe, left lower lobe contiguously extending into the left hilar and subcarinal region most likely reflecting malignancy. 2. Nonspecific right upper lobe airspace consolidation. This also could relate to additional site of malignancy or other airspace consolidative process including pneumonia. 3. 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 Lymphoma is also in the differential diagnosis. 4. No identified pulmonary embolus. There is some attenuation of the caliber of right upper lobe and left upper lobe pulmonary artery vessels which likely relates to the adjacent consolidative process. 5. 11 mm right adrenal nodule stable since May 28, 2019. 6. Changes of chronic cystic lung disease with unchanged appearance since May 28, 2019. Dictated by: Dictated on workstation # [id number]
[2020-08-04] MEDS ORDERED: PIPERACILLIN SODIUM/TAZOBACTAM 4.5 GM in NS (IVPB) 100 ML IV ONE (15:30)
[2020-08-04] MEDS ORDERED: methylPREDNISolone 125 MG (Solu-MEDROL) VIAL IV STA (16:12)
[2020-08-04] MEDS ORDERED: PIPERACILLIN/TAZO 4.5 GM VIAL (ZOSYN) IV ONE (16:38)
[2020-08-04] MEDS ORDERED: NS (IVPB) 100 ML ONE (16:38)
[2020-08-04] MEDS ORDERED: WATER (STERILE) FOR INJECTION 20 ML ONE (16:38)
--- NOTE | 2020-08-04 17:28 | NUR ---
CR 0.91; CR CL > 60; WT 79 KG; VANCO 1250 MG IV BOLUS THEN 1000 MG IV Q12H X 3 DAYS
[2020-08-04] MEDS ORDERED: ACETAMINOPHEN 500 MG TAB (TYLENOL) PO PRN (17:30)
[2020-08-04] MEDS ORDERED: EPINEPHrine 1 MG INJECTION 4 MG in NS (IVPB) 248 ML IV SCH (17:30)
[2020-08-04] MEDS ORDERED: ONDANSETRON 4 MG/2 ML (SDV) Z0FRAN IV PRN (17:30)
[2020-08-04] MEDS ORDERED: VANCOMYCIN 1250 MG/NS 250 ML IVPB IV NR ×2 (18:00)
[2020-08-04] MEDS: LACTATED RINGERS 1,000 ML IV SCH (19:10)
[2020-08-04] MEDS: VASOPRESSIN INJECTION 20 UNIT in NS (IVPB) 100 ML IV SCH (19:50)
[2020-08-04] MEDS: NOREPINEPHRINE 4 MG/250 ML 250 ML IV SCH ×2 (19:50→22:21)
[2020-08-04] MEDS: OSELTAMIVIR 75 MG (TAMIFLU) CAPSULE PO SCH (20:33)
[2020-08-05] MEDS ORDERED: methylPREDNISolone 125 MG (Solu-MEDROL) VIAL IV SCH
[2020-08-05] MEDS: PIPERACILLIN/TAZO 4.5 GM/NS 100 ML IV SCH ×8 (00:52→23:23)
[2020-08-05] MEDS: VASOPRESSIN INJECTION 20 UNIT in NS (IVPB) 100 ML IV SCH ×3 (02:19→18:43)
[2020-08-05] MEDS: LACTATED RINGERS 1,000 ML IV SCH ×4 (02:19→20:47)
[2020-08-05] MEDS ORDERED: MELATONIN 3 MG TABLET ONE (02:50)
[2020-08-05] MEDS: MELATONIN 3 MG TABLET PO SCH ×2 (02:54→20:48)
[2020-08-05 03:39] LABS: BASOPHILS % (AUTO) 0 % (0-10); EOSINOPHILS % (AUTO) 0 % (0-10); HEMATOCRIT 42 % (40-54); HEMOGLOBIN 12.9 g/dL (13.3-17.7); LYMPHOCYTES # (AUTO) 0.9 10^3/uL (1.0-4.0); LYMPHOCYTES % (AUTO) 4 % (12-44); MEAN CORPUSCULAR HEMOGLOBIN 26 pg (25-34); MEAN CORPUSCULAR HGB CONC 30 g/dL (32-36); MEAN CORPUSCULAR VOLUME 86 fL (80-99); MEAN PLATELET VOLUME 9.9 fL (9.0-12.2); MONOCYTES # (AUTO) 0.3 10^3/uL (0.0-1.0); MONOCYTES % (AUTO) 1 % (0-12); NEUTROPHILS % (AUTO) 94 % (42-75); PLATELET COUNT 526 10^3/uL (130-400); WHITE BLOOD COUNT 22.4 10^3/uL (4.3-11.0)
[2020-08-05 03:50] LABS: CHLORIDE 103 MMOL/L (98-107); POTASSIUM 3.7 MMOL/L (3.6-5.0); SODIUM 135 MMOL/L (135-145)
[2020-08-05 03:51] LABS: CALCIUM 9.2 MG/DL (8.5-10.1)
[2020-08-05 03:52] LABS: GLUCOSE 269 MG/DL (70-105)
[2020-08-05 03:53] LABS: CARBON DIOXIDE 15 MMOL/L (21-32)
[2020-08-05 03:55] LABS: PHOSPHORUS 4.3 MG/DL (2.3-4.7)
[2020-08-05 03:56] LABS: CREATININE SERUM 0.94 MG/DL (0.60-1.30); GFR ESTIMATED > 60
[2020-08-05 03:57] LABS: BUN/CREATININE RATIO 20
[2020-08-05] MEDS: POTASSIUM CL 10MEQ/50ML IVPB 50 ML IV SCH (03:59)
[2020-08-05] MEDS: MAGNESIUM 1 GM/100 ML IVPB 100 ML IV SCH (04:10)
[2020-08-05] MEDS: KCL 20 MEQ TAB (K-DUR) PO SCH (04:11)
--- NOTE | 2020-08-05 05:50 | Pulmonary Consultation ---
History of Present Illness History of Present Illness Date Seen by Provider: Aug 05, 2020 Time Seen by Provider: 05:45 Date of Admission Allergies and Home Medications Allergies Coded Allergies: celecoxib (Unverified Allergy, Unknown, 12/22/18) UPSET STOMACH naproxen (Unverified Allergy, Unknown, 12/22/18) UPSET STOMACH Home Medications Albuterol Sulfate 18 Gm Hfa.aer.ad, 2 PUFF IH Q4H PRN for SHORTNESS OF BREATH, (Reported) Albuterol Sulfate 2.5 Mg/3 Ml Vial.neb, 2.5 MG NEB Q4H PRN for SHORTNESS OF BREATH, (Reported) Atorvastatin Calcium 40 Mg Tablet, 40 MG PO HS, (Reported) Calcipotriene 60 Gm Oint...g., TOP BID PRN for PSORIASIS, (Reported) Canagliflozin 100 Mg Tablet, 100 MG PO DAILY, (Reported) Cefdinir 300 Mg Capsule, 300 MG PO BID Prescribed by: JOSE F VALLEJO on 12/24/18 1219 Fluticasone/Salmeterol 1 Each Blst.w.dev, 1 EACH IH BID, (Reported) Folic Acid 1 Mg Tablet, 1 MG PO DAILY, (Reported) Glipizide 10 Mg Tablet, 10 MG PO BID, (Reported) Lisinopril 20 Mg Tablet, 20 MG PO DAILY, (Reported) LAST FILLED #30 18 Methotrexate Sodium 2.5 Mg Tablet, 15 MG PO EVERY OTHER MONDAY, (Reported) TAKES 6 (2.5MG) TABLETS EVERY OTHER MONDAY Piroxicam 20 Mg Capsule, 20 MG PO DAILY, (Reported) Prednisone 10 Mg Tab, 0 PO UD Take 6 tabs(60mg)daily, decrease by 1 tab(10mg) every other day. Prescribed by: JOSE F VALLEJO on 12/24/18 1219 Prednisone 10 Mg Tab, 40 MG PO DAILY Prescribed by: ZAHRAA MCDONALD on 01/15/19 0256 Tiotropium [place] 4 Gm Mist.inhal, 2 PUFF IH DAILY, (Reported) Past Asbmujo-Fgalwc-Yitkdp Hx Past Med/Social Hx: Reviewed Nursing Past Med/Soc Hx Patient Social History Alcohol Use: Denies Use Recreational Drug Use: No Smoking Status: Former Smoker Type Used: Cigarettes Former Smoker, Quit: Jul 31, 2020 2nd Hand Smoke Exposure: Yes Recent Foreign Travel: No Contact w/Someone Who Travel: No Recent Infectious Disease Expo: Yes Recent Hopitalizations: No Immunizations Up To Date Tetanus Booster (TDap): Unknown Date of Pneumonia Vaccine: Jun 01, 2013 Date of Influenza Vaccine: Apr 30, 2018 Seasonal Allergies Seasonal Allergies: No Past Medical History Surgeries: Yes (COLONOSCOPY/POLYPECTOMY) Respiratory: Yes (HOME O2 AT 2L/NC) Pneumonia, COPD Currently Using CPAP: No Currently Using BIPAP: No Cardiac: Yes High Cholesterol, Hypertension Neurological: No Reproductive Disorders: No Genitourinary: No Gastrointestinal: No Musculoskeletal: Yes Rheumatoid Arthritis Endocrine: Yes (TYPE 2 DIABETES) Diabetes, Non-Insulin dep 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 7.7oz. 89.785186un; 27.00 BMI Method:Stated Exam Exam Vital Signs Date Time Temp Pulse Resp B/P (MAP) Pulse Ox O2 Delivery O2 Flow Rate FiO2 08/05/20 04:01 36.1 08/05/20 04:00 Room Air 08/05/20 03:00 113 33 145/88 (107) 95 Room Air 08/05/20 02:00 106 26 111/83 (92) 95 Room Air 08/05/20 01:05 110 138/98 (111) 91 Room Air 08/05/20 01:00 104 08/05/20 00:00 Room Air 08/05/20 00:00 93 13 134/83 (104) 89 Room Air 08/04/20 23:00 89 30 123/64 (83) 91 Room Air 08/04/20 22:21 84 84/57 08/04/20 22:00 84 17 78/57 (64) 92 Room Air 08/04/20 21:07 37.1 08/04/20 21:00 87 82/51 (61) 91 Room Air 08/04/20 20:16 37.1 08/04/20 20:15 95 Room Air 08/04/20 20:00 96 38 105/65 (75) 91 Room Air 08/04/20 20:00 Room Air 08/04/20 19:00 100 08/04/20 19:00 99 21 118/73 (88) 93 Room Air 08/04/20 18:00 100 18 103/59 (74) 94 Room Air 08/04/20 17:00 11 149/89 (109) 93 Room Air 08/04/20 16:59 92 08/04/20 16:43 37.4 88 20 110/81 (91) 96 08/04/20 10:35 38.1 101 40 110/81 (91) 96 Room Air I & O 08/05/20 07:00 Intake Total 2370 ml Output Total 850 ml Balance 1520 ml Height & Weight Height: 5'7.00" Weight: 198lbs. 7.7oz. 89.944278yi; 27.00 BMI Method:Stated General Appearance: Chronically ill, Mild Distress HEENT: PERRL/EOMI, Pharynx Normal Neck: Non Tender, Supple Respiratory: No Respiratory Distress, Crackles, Wheezing (Few trace) Cardiovascular: No Murmur, Tachycardia Capillary Refill: Less Than 3 Seconds Extremity: Normal Inspection, Normal Range of Motion, Non Tender Neurologic/Psychiatric: Alert, Oriented x3 Results Lab Laboratory Tests 08/04/20 10:52 08/05/20 03:17 Assessment/Plan Assessment/Plan Left lung mass with post obstructive pneumonia Influeza B -Tamiflu -Covid is negative Severe sepsis -Zosyn and Vanco -Amaya cultures are pending -IVF LR at 125 GI/DVT ppx -Start Lovenox and protonix CABRERA RAMIREZ DO Aug 05, 2020 05:49
[2020-08-05] MEDS ORDERED: morphine INJ 4 MG/ML 1 ML (VIAL/SYRINGE) IVP PRN (06:00)
[2020-08-05] MEDS ORDERED: FAMOTIDINE 20 MG (PEPCID) TABLET PO PRN (06:00)
[2020-08-05] MEDS: ENOXAPARIN 40 MG/0.4 ML (LOVENOX) SYR SC SCH (06:23)
[2020-08-05] MEDS: VANCOMYCIN 1 GM/NS 250 ML IVPB IV SCH ×4 (06:23→17:01)
[2020-08-05] MEDS: methylPREDNISolone 125 MG (Solu-MEDROL) VIAL IV SCH ×4 (06:32→23:36)
[2020-08-05 07:17] LABS: ABG BASE EXCESS -5.1 MMOL/L (-2.5-2.5); ABG OXYGEN SATURATION 95 % (94-100); ABG PCO2 31 MMHG (35-45); ABG PH 7.41 (7.37-7.43); ABG PO2 71 MMHG (79-93)
[2020-08-05 07:19] LABS: INSPIRED O2 ROOM AIR; PATIENT TEMP 36.1; VENTILATOR NO
--- NOTE | 2020-08-05 07:42 | Diagnostic Imaging Report ---
Indication: Dyspnea Upright portable chest shows heart size and vascularity to be upper normal. There are bilateral infiltrates similar to the 08/04/2020 study. There is no effusion or pneumothorax. IMPRESSION: Stable chest. Dictated by: Dictated on workstation # [id number]
[2020-08-05] MEDS: OSELTAMIVIR 75 MG (TAMIFLU) CAPSULE PO SCH ×2 (08:07→20:48)
[2020-08-05] MEDS: RT-ALBUTEROL/IPRATROPIUM 3 ML (DUONEB) VIAL INH SCH ×5 (08:12→21:42)
[2020-08-05] MEDS ORDERED: LACTATED RINGERS 1,000 ML IV SCH (09:30)
[2020-08-05] MEDS: NOREPINEPHRINE 4 MG/250 ML 250 ML IV SCH ×2 (10:24→18:43)
--- NOTE | 2020-08-05 11:37 | History & Physical ---
CARROLL HOOK III MED STUDENT 08/05/20 1136: History of Present Illness History of Present Illness Reason for visit/HPI Pt notes worsening diarrhea with shortness and flu like symptoms that appeared to start on monday. He notes that he had significant diarrhea and muscle aches all over that prevented him from performing his normal daily tasks. He has noted to have baseline shortness of breath with occasional coughing up of blood. On admission on 08/04 he was reported to have a systolic BP of 60, but on repeat it was in the low 100s. He was febrile on admission with an elevated white count of 16.6, CRP of 22.69, lactic acid of 2.36, and procal of 2.41. His BP increased though not significantly and has dropped back down into the 80s putting him into the severe sepsis category. He was started on vanc and zosyn in the ER in addition to his fluids. Date of Admission Aug 04, 2020 at 16:03 Date Seen by a Provider: Aug 05, 2020 Time Seen by a Provider: 09:15 I consulted on this patient on 08/05/20 11:30 Attending Physician Jose F Vallejo MD Admitting Physician Jose F Vallejo MD Consult Allergies and Home Medications Allergies Coded Allergies: celecoxib (Unverified Allergy, Unknown, 12/22/18) UPSET STOMACH naproxen (Unverified Allergy, Unknown, 12/22/18) UPSET STOMACH Home Medications Albuterol Sulfate 18 Gm Hfa.aer.ad, 2 PUFF IH Q4H PRN for SHORTNESS OF BREATH, (Reported) Albuterol Sulfate 2.5 Mg/3 Ml Vial.neb, 2.5 MG NEB Q4H PRN for SHORTNESS OF BREATH, (Reported) Atorvastatin Calcium 40 Mg Tablet, 40 MG PO HS, (Reported) Calcipotriene 60 Gm Oint...g., TOP BID PRN for PSORIASIS, (Reported) Canagliflozin 100 Mg Tablet, 100 MG PO DAILY, (Reported) Cefdinir 300 Mg Capsule, 300 MG PO BID Prescribed by: JOSE F VALLEJO on 12/24/18 1219 Fluticasone/Salmeterol 1 Each Blst.w.dev, 1 EACH IH BID, (Reported) Folic Acid 1 Mg Tablet, 1 MG PO DAILY, (Reported) Glipizide 10 Mg Tablet, 10 MG PO BID, (Reported) Lisinopril 20 Mg Tablet, 20 MG PO DAILY, (Reported) LAST FILLED #30 04-04-18 Methotrexate Sodium 2.5 Mg Tablet, 15 MG PO EVERY OTHER MONDAY, (Reported) TAKES 6 (2.5MG) TABLETS EVERY OTHER MONDAY Piroxicam 20 Mg Capsule, 20 MG PO DAILY, (Reported) Prednisone 10 Mg Tab, 0 PO UD Take 6 tabs(60mg)daily, decrease by 1 tab(10mg) every other day. Prescribed by: JOSE F VALLEJO on 12/24/18 1219 Prednisone 10 Mg Tab, 40 MG PO DAILY Prescribed by: ZAHRAA MCDONALD on 01/15/19 0256 Tiotropium [place] 4 Gm Mist.inhal, 2 PUFF IH DAILY, (Reported) Patient Home Medication List Home Medication List Reviewed: Yes Past Smsarvg-Hsmqpi-Jsxaux Hx Patient Social History Alcohol Use: Denies Use Recreational Drug Use: No Smoking Status: Former Smoker Former Smoker, Quit: Jul 31, 2020 Type Used: Cigarettes 2nd Hand Smoke Exposure: Yes Recent Foreign Travel: No Contact w/other who traveled: No Recent Hopitalizations: No Recent Infectious Disease Expo: Yes Immunizations Up To Date Tetanus Booster (TDap): Unknown Date of Pneumonia Vaccine: Jun 01, 2013 Date of Influenza Vaccine: Apr 30, 2018 Seasonal Allergies Seasonal Allergies: No Surgeries Yes (COLONOSCOPY/POLYPECTOMY) Respiratory Yes (HOME O2 AT 2L/NC) COPD, Pneumonia Currently Using CPAP: No Currently Using BIPAP: No Cardiovascular Yes High Cholesterol, Hypertension Neurological No Reproductive System Hx Reproductive Disorders: No Genitourinary No Gastrointestinal No Musculoskeletal Yes Rheumatoid Arthritis Endocrine History of Endocrine Disorders: Yes (TYPE 2 DIABETES) Endocrine Disorders: Diabetes, Non-Insulin dep HEENT History of HEENT Disorders: Yes (BLIND IN LEFT EYE) Loss of Vision: Left Cancer No Psychosocial History of Psychiatric Problem: No Integumentary History of Skin or Integumenta: Yes Skin/Integumentary Disorders: Psoriasis Blood Transfusions History of Blood Disorders: No Adverse Reaction to a Blood Tr: No Family Medical History Significant Family History: Cancer, Diabetes Family Hx: Cancer G8 SISTER Family history: Diabetes mellitus G8 SISTER Review of Systems Constitutional: malaise, weakness EENTM: no symptoms reported Respiratory: cough, dyspnea on exertion, hemoptysis Cardiovascular: No chest pain, No palpitations, No syncope Gastrointestinal: diarrhea Genitourinary: no symptoms reported Musculoskeletal: muscle pain Skin: lumps (noted what appeared to be a ingrown hair in the upper middle back that has been causing him some pain) Psychiatric/Neurological: No Symptoms Reported Physical Exam Vital Signs Vital Signs - First Documented 08/04/20 10:35 Temp 38.1 Pulse 101 Resp 40 B/P (MAP) 110/81 (91) Pulse Ox 96 O2 Delivery Room Air Capillary Refill : Less Than 3 Seconds Height, Weight, BMI Height: 5'7.00" Weight: 198lbs. 7.7oz. 89.002050wi; 27.00 BMI Method:Stated General Appearance: No Apparent Distress Eyes: Bilateral Eye Normal Inspection, Bilateral Eye PERRL, Bilateral Eye EOMI HEENT: PERRL/EOMI, TMs Normal, Normal ENT Inspection, Pharynx Normal Neck: Full Range of Motion, Normal Inspection, Non Tender, Supple Respiratory: Chest Non Tender, No Accessory Muscle Use, No Respiratory Distress, Crackles (mild crackles noted in bilateral lower lung machado), Decreased Breath Sounds Cardiovascular: Regular Rate, Rhythm, No Edema, No Gallop, No JVD, No Murmur Gastrointestinal: Normal Bowel Sounds, Non Tender, Soft Back: Normal Inspection Extremity: Normal Inspection, Normal Range of Motion, Non Tender, No Pedal Edema Neurologic/Psychiatric: Alert, Oriented x3, No Motor/Sensory Deficits, Normal Mood/Affect, piping drafter II-XII Norm as Tested Skin: Normal Color, Warm/Dry Comments Laboratory Tests 08/05/20 03:17 Laboratory Tests Test 08/04/20 10:42 08/04/20 10:52 08/04/20 11:31 08/04/20 12:05 Range/Units Coronavirus 2019 (AZRA) Negative Negative White Blood Count 16.6 H 4.3-11.0 10^3/uL Red Blood Count 4.26 L 4.30-5.52 10^6/uL Hemoglobin 11.5 L 13.3-17.7 g/dL Hematocrit 37 L 40-54 % Mean Corpuscular Volume 87 80-99 fL Mean Corpuscular Hemoglobin 27 25-34 pg Mean Corpuscular Hemoglobin Concent 31 L 32-36 g/dL Red Cell Distribution Width 17.0 H 10.0-14.5 % Platelet Count 385 130-400 10^3/uL Mean Platelet Volume 9.1 9.0-12.2 fL Immature Granulocyte % (Auto) 1 % Neutrophils (%) (Auto) 83 H 42-75 % Lymphocytes (%) (Auto) 6 L 12-44 % Monocytes (%) (Auto) 9 0-12 % Eosinophils (%) (Auto) 0 0-10 % Basophils (%) (Auto) 0 0-10 % Neutrophils # (Auto) 13.8 H 1.8-7.8 10^3/uL Lymphocytes # (Auto) 1.1 1.0-4.0 10^3/uL Monocytes # (Auto) 1.6 H 0.0-1.0 10^3/uL Eosinophils # (Auto) 0.0 0.0-0.3 10^3/uL Basophils # (Auto) 0.1 0.0-0.1 10^3/uL Immature Granulocyte # (Auto) 0.1 0.0-0.1 10^3/uL Neutrophils % (Manual) 88 % Lymphocytes % (Manual) 5 % Monocytes % (Manual) 6 % Band Neutrophils 1 % Blood Morphology Comment NORMAL Prothrombin Time 16.8 H 12.2-14.7 SEC INR Comment 1.3 0.8-1.4 Activated Partial Thromboplast Time 35 24-35 SEC D-Dimer 10.07 H 0.00-0.49 UG/ML Sodium Level 133 L 135-145 MMOL/L Potassium Level 3.4 L 3.6-5.0 MMOL/L Chloride Level 101 98-107 MMOL/L Carbon Dioxide Level 23 21-32 MMOL/L Anion Gap 9 5-14 MMOL/L Blood Urea Nitrogen 16 7-18 MG/DL Creatinine 0.91 0.60-1.30 MG/DL Estimat Glomerular Filtration Rate > 60 BUN/Creatinine Ratio 18 Glucose Level 141 H 70-105 MG/DL Lactic Acid Level 2.36 *H 0.50-2.00 MMOL/L Calcium Level 8.6 8.5-10.1 MG/DL Corrected Calcium 9.4 8.5-10.1 MG/DL Total Bilirubin 0.9 0.1-1.0 MG/DL Aspartate Amino Transf (AST/SGOT) 12 5-34 U/L Alanine Aminotransferase (ALT/SGPT) 7 0-55 U/L Alkaline Phosphatase 92 40-136 U/L C-Reactive Protein High Sensitivity 22.69 H 0.00-0.50 MG/DL Total Protein 8.0 6.4-8.2 GM/DL Albumin 3.0 L 3.2-4.5 GM/DL Procalcitonin 2.41 H <0.10 NG/ML Urine Color YELLOW Urine Clarity CLEAR Urine pH 6.0 5-9 Urine Specific [place] 1.020 1.016-1.022 Urine Protein TRACE H NEGATIVE Urine Glucose (UA) 3+ H NEGATIVE Urine Ketones NEGATIVE NEGATIVE Urine Nitrite NEGATIVE NEGATIVE Urine Bilirubin NEGATIVE NEGATIVE Urine Urobilinogen 0.2 < = 1.0 MG/DL Urine Leukocyte Esterase NEGATIVE NEGATIVE Urine RBC (Auto) NEGATIVE NEGATIVE Urine RBC RARE /HPF Urine WBC RARE /HPF Urine Squamous Epithelial Cells 0-2 /HPF Urine Crystals PRESENT H /LPF Urine Amorphous Sediment RARE IVIS URATES H /LPF Urine Bacteria TRACE /HPF Urine Casts PRESENT /LPF Urine Hyaline Casts 0-2 H /LPF Urine Mucus SMALL H /LPF Urine Culture Indicated CULTURE PENDING Coronavirus (COVID-19)(PCR) Negative Negative Test 08/04/20 13:05 08/04/20 17:41 08/05/20 03:17 08/05/20 06:55 Range/Units Lactic Acid Level 1.62 1.68 0.50-2.00 MMOL/L White Blood Count 22.4 H 4.3-11.0 10^3/uL Red Blood Count 4.92 4.30-5.52 10^6/uL Hemoglobin 12.9 L 13.3-17.7 g/dL Hematocrit 42 40-54 % Mean Corpuscular Volume 86 80-99 fL Mean Corpuscular Hemoglobin 26 25-34 pg Mean Corpuscular Hemoglobin Concent 30 L 32-36 g/dL Red Cell Distribution Width 16.8 H 10.0-14.5 % Platelet Count 526 H 130-400 10^3/uL Mean Platelet Volume 9.9 9.0-12.2 fL Immature Granulocyte % (Auto) 1 % Neutrophils (%) (Auto) 94 H 42-75 % Lymphocytes (%) (Auto) 4 L 12-44 % Monocytes (%) (Auto) 1 0-12 % Eosinophils (%) (Auto) 0 0-10 % Basophils (%) (Auto) 0 0-10 % Neutrophils # (Auto) 21.0 H 1.8-7.8 10^3/uL Lymphocytes # (Auto) 0.9 L 1.0-4.0 10^3/uL Monocytes # (Auto) 0.3 0.0-1.0 10^3/uL Eosinophils # (Auto) 0.0 0.0-0.3 10^3/uL Basophils # (Auto) 0.0 0.0-0.1 10^3/uL Immature Granulocyte # (Auto) 0.1 0.0-0.1 10^3/uL Sodium Level 135 135-145 MMOL/L Potassium Level 3.7 3.6-5.0 MMOL/L Chloride Level 103 98-107 MMOL/L Carbon Dioxide Level 15 L 21-32 MMOL/L Anion Gap 17 H 5-14 MMOL/L Blood Urea Nitrogen 19 H 7-18 MG/DL Creatinine 0.94 0.60-1.30 MG/DL Estimat Glomerular Filtration Rate > 60 BUN/Creatinine Ratio 20 Glucose Level 269 H 70-105 MG/DL Calcium Level 9.2 8.5-10.1 MG/DL Phosphorus Level 4.3 2.3-4.7 MG/DL Magnesium Level 2.0 1.6-2.4 MG/DL Blood Gas Puncture Site LT RAD Blood Gas Patient Temperature 36.1 Arterial Blood pH 7.41 7.37-7.43 Arterial Blood Partial Pressure CO2 31 L 35-45 MMHG Arterial Blood Partial Pressure O2 71 L 79-93 MMHG Arterial Blood HCO3 19 L 23-27 MMOL/L Arterial Blood Total CO2 20.0 L 21.0-31.0 MMOL/L Arterial Blood Oxygen Saturation 95 94-100 % Arterial Blood Base Excess -5.1 L -2.5-2.5 MMOL/L Cristobal Test NA Blood Gas Ventilator Setting NO Blood Gas Inspired Oxygen ROOM AIR Assessment/Plan Assessment and Plan Pt is a 65 year old male who was admitted on 08/04 with concerns for the flu with suspected bacterial pna and severe sepsis. Sepsis Influenza Bacterial pna CT finding concerning for cancer of Left upper and lower lung with potential mets that require further workup DM2 Plan: pt appears to be in no apparent distress BP is still in the low 100s/80s. plan to increase IVF rate to increase volume status Has norepi ordered as a vasopressor for BP Pt is on zosyn and vanc for his bacterial pna and tamiflu for influenza He is currently on methylprednisolone, could consider decreasing dosage as pt is not having any COPD exacerbations at this time Plan to follow up on CT finding on lung w/ Dr. Stokes after treatment for his influenza and pna Problems: (1) Severe sepsis Status: Acute Assessment & Plan: on vanc, zosyn, IVF, tamiflu, norepi (2) Left upper lobe pneumonia Status: Acute Qualifiers: Qualified Codes: J18.9 - Pneumonia, unspecified organism Assessment & Plan: on vanc and zosyn (3) Influenza B Status: Acute Assessment & Plan: on tamiflu (4) Mass of left lung Status: Acute Assessment & Plan: plan to f/u after treatment of pna and influenza (5) Rheumatoid arthritis Status: Chronic (6) Psoriasis Status: Chronic (7) COPD (chronic obstructive pulmonary disease) Status: Chronic Assessment & Plan: on 2L NC at night and solumedrol, may consider decreasing solumedrol as he is not in any COPD exacerbation (8) Diabetes Status: Chronic Qualifiers: Qualified Codes: E11.65 - Type 2 diabetes mellitus with hyperglycemia (9) Hypertension Status: Chronic Qualifiers: Qualified Codes: I10 - Essential (primary) hypertension (10) Hyperlipidemia Status: Chronic Clinical Quality Measures DVT/VTE Risk/Contraindication: Risk Factor Score Per Nursin RFS Level Per Nursing on Admit: 4+=Very High Sepsis: Within 3hrs of presentation: Admin fluids, Admin ABX, Lactate level (lactic acid 1.68 today) JOSE F VALLEJO MD 08/05/20 1335: Allergies and Home Medications Allergies Coded Allergies: celecoxib (Unverified Allergy, Unknown, 12/22/18) UPSET STOMACH naproxen (Unverified Allergy, Unknown, 12/22/18) UPSET STOMACH Home Medications Albuterol Sulfate 18 Gm Hfa.aer.ad, 2 PUFF IH Q4H PRN for SHORTNESS OF BREATH, (Reported) Albuterol Sulfate 2.5 Mg/3 Ml Vial.neb, 2.5 MG NEB Q4H PRN for SHORTNESS OF BREATH, (Reported) Atorvastatin Calcium 40 Mg Tablet, 40 MG PO HS, (Reported) Calcipotriene 60 Gm Oint...g., TOP BID PRN for PSORIASIS, (Reported) Canagliflozin 100 Mg Tablet, 100 MG PO DAILY, (Reported) Cefdinir 300 Mg Capsule, 300 MG PO BID Prescribed by: JOSE F VALLEJO on 12/24/18 1219 Fluticasone/Salmeterol 1 Each Blst.w.dev, 1 EACH IH BID, (Reported) Folic Acid 1 Mg Tablet, 1 MG PO DAILY, (Reported) Glipizide 10 Mg Tablet, 10 MG PO BID, (Reported) Lisinopril 20 Mg Tablet, 20 MG PO DAILY, (Reported) LAST FILLED #30 04-04-18 Methotrexate Sodium 2.5 Mg Tablet, 15 MG PO EVERY OTHER MONDAY, (Reported) TAKES 6 (2.5MG) TABLETS EVERY OTHER MONDAY Piroxicam 20 Mg Capsule, 20 MG PO DAILY, (Reported) Prednisone 10 Mg Tab, 0 PO UD Take 6 tabs(60mg)daily, decrease by 1 tab(10mg) every other day. Prescribed by: JOSE F VALLEJO on 12/24/181218 Prednisone 10 Mg Tab, 40 MG PO DAILY Prescribed by: ZAHRAA MCDONALD on 01/15/19 0256 Tiotropium [place] 4 Gm Mist.inhal, 2 PUFF IH DAILY, (Reported) Past Cviqdux-Vuyypn-Eifeip Hx Family Medical History Family Hx: Cancer G8 SISTER Family history: Diabetes mellitus G8 SISTER Physical Exam General Appearance: No Apparent Distress Respiratory: No Accessory Muscle Use, No Respiratory Distress, Crackles (mild crackles noted in bilateral lower lung machado), Decreased Breath Sounds (nearly absent breath sounds bilateral upper lobes), Rhonci Cardiovascular: Regular Rate, Rhythm, No Murmur Gastrointestinal: Normal Bowel Sounds, Non Tender, Soft Extremity: No Pedal Edema Neurologic/Psychiatric: Alert, Normal Mood/Affect Skin: Warm/Dry Assessment/Plan Assessment and Plan Problems: (1) Severe sepsis Status: Acute Assessment & Plan: on vanc, zosyn, IVF, tamiflu, norepi (2) Left upper lobe pneumonia Status: Acute Qualifiers: Qualified Codes: J18.9 - Pneumonia, unspecified organism Assessment & Plan: on vanc and zosyn (3) Influenza B Status: Acute Assessment & Plan: on tamiflu (4) Mass of left lung Status: Acute Assessment & Plan: plan to f/u after treatment of pna and influenza (5) Rheumatoid arthritis Status: Chronic (6) Psoriasis Status: Chronic (7) COPD (chronic obstructive pulmonary disease) Status: Chronic Assessment & Plan: on 2L NC at night and solumedrol, may consider decreasing solumedrol as he is not in any COPD exacerbation (8) Diabetes Status: Chronic Qualifiers: Qualified Codes: E11.65 - Type 2 diabetes mellitus with hyperglycemia (9) Hypertension Status: Chronic Qualifiers: Qualified Codes: I10 - Essential (primary) hypertension (10) Hyperlipidemia Status: Chronic Admission Diagnosis Admission Status: Inpatient Order (span 2 midnights) Reason for Inpatient Admission: Severe sepsis with underlying comorbidities Supervisory-Addendum Brief Verification & Attestation Participated in pt care: history, MDM, physical Personally performed: exam, history, MDM Care discussed with: Medical Student Procedures: n/a I personally saw and examined this patient today and did my own history and physical exam, see my exam notes for my physical exam. I directed the plan of care as documented by the medical student. CARROLL HOOK III MED STUDENT Aug 05, 2020 11:36 JOSE F VALLEJO MD Aug 05, 2020 13:35
[2020-08-05] MEDS ORDERED: inSUlin ASPART (NovoLOG) 1 UNIT/0.01 ML (CHARGE PER UNIT) SC SCH (12:00)
[2020-08-05] MEDS: inSUlin ASPART (NovoLOG) 1 UNIT/0.01 ML (CHARGE PER UNIT) SC SCH ×3 (13:09→20:48)
--- NOTE | 2020-08-05 13:18 | Diagnostic Imaging Report ---
INDICATION: PICC line placement. EXAMINATION: Portable chest at 12:59 p.m. FINDINGS: Left upper extremity PICC line is ascending in the right innominate vein. There are coarse interstitial infiltrates in both lungs. There are no effusions or pneumothoraces. IMPRESSION: Left upper extremity PICC line deflected up into the right innominate vein. Dictated by: Dictated on workstation # [id number]
[2020-08-05] MEDS ORDERED: CANA300T PO (14:05)
[2020-08-05] MEDS ORDERED: PREG75CA75 PO (14:05)
--- NOTE | 2020-08-05 14:06 | NUR ---
SPOKE WITH THE PT (CALLED THE ROOM PHONE) AND WENT THRU THE EXT MED HISTORY TO COMPLETE THE MED REC PT NAMED ALL HIS MEDICATIONS WELL WHEN/HOW HE TAKES EACH DURING A PREVIOUS STAY WE HAD MAINTENANCE INHALER LISTED ON THE MED REC (SPIRIVA AND ADVAIR) BUT WHEN I SPOKE WITH THE PT TODAY HE LET ME KNOW THE ONLY INHALER HE USES IS ALBUTEROL HFA AND NEB SOLUTION PT DENIES TAKING ANY OTC MEDS
--- NOTE | 2020-08-05 14:17 | Diagnostic Imaging Report ---
INDICATION: PICC line adjustment. Frontal chest obtained at 01:47 p.m. and compared to 08/05/2020 at 12:59 p.m. Cardiomegaly again noted with central vascular congestion and diffuse interstitial infiltrate. The left-sided PICC line has been repositioned, tip now overlies the left innominate vein. There is no pneumothorax or pleural fluid. IMPRESSION: Cardiomegaly with unchanged diffuse interstitial infiltrates. Repositioning of PICC line compared to the prior study, tip now overlies the left innominate vein. Dictated by: Dictated on workstation # [id number]
--- NOTE | 2020-08-05 14:19 | NUR ---
[id number] : PICC line inserted in patient's left upper arm without difficulty. Dressing applied and chest x-ray ordered. 1330 : Meghann Child, SIMRAN spoke with Dr. Cornejo regarding PICC line placement in ordered chest x-ray; verbal order obtained from Dr. Cornejo to pull PICC line back 4 cm and then re-order chest x-ray to verify placement. 1345 : PICC line retracted 4cm, new stat-lock and sterile dressing applied. Chest x-ray ordered. X-ray outside of patient room to obtain film. 1411 : Spoke with Dr. Cornejo regarding results of PICC line placement post-adjustment of PICC line. Dr. Cornejo states that PICC line is usable, at junction of SVC and vessel. SIMRAN Grijalva notified that PICC line okay to use per Dr. Cornejo by Meghann Child RN.
[2020-08-05] MEDS: PREGABALIN 150 MG (LYRICA) CAPSULE PO SCH (20:48)
[2020-08-06 02:37] LABS: BASOPHILS % (AUTO) 0 % (0-10); EOSINOPHILS % (AUTO) 0 % (0-10); HEMATOCRIT 32 % (40-54); HEMOGLOBIN 9.8 g/dL (13.3-17.7); LYMPHOCYTES # (AUTO) 0.8 10^3/uL (1.0-4.0); LYMPHOCYTES % (AUTO) 8 % (12-44); MEAN CORPUSCULAR HEMOGLOBIN 27 pg (25-34); MEAN CORPUSCULAR HGB CONC 31 g/dL (32-36); MEAN CORPUSCULAR VOLUME 87 fL (80-99); MEAN PLATELET VOLUME 9.8 fL (9.0-12.2); MONOCYTES # (AUTO) 0.4 10^3/uL (0.0-1.0); MONOCYTES % (AUTO) 4 % (0-12); NEUTROPHILS # (AUTO) 9.8 10^3/uL (1.8-7.8); NEUTROPHILS % (AUTO) 88 % (42-75); PLATELET COUNT 347 10^3/uL (130-400); WHITE BLOOD COUNT 11.2 10^3/uL (4.3-11.0)
[2020-08-06 02:48] LABS: CHLORIDE 108 MMOL/L (98-107); POTASSIUM 3.6 MMOL/L (3.6-5.0); SODIUM 140 MMOL/L (135-145)
[2020-08-06 02:49] LABS: CALCIUM 8.1 MG/DL (8.5-10.1)
[2020-08-06 02:50] LABS: GLUCOSE 188 MG/DL (70-105)
[2020-08-06 02:52] LABS: CARBON DIOXIDE 16 MMOL/L (21-32)
[2020-08-06 02:54] LABS: GFR ESTIMATED > 60; PHOSPHORUS 2.7 MG/DL (2.3-4.7)
[2020-08-06 02:55] LABS: BUN/CREATININE RATIO 29
[2020-08-06 02:56] LABS: MAGNESIUM 1.9 MG/DL (1.6-2.4)
[2020-08-06] MEDS: VASOPRESSIN INJECTION 20 UNIT in NS (IVPB) 100 ML IV SCH ×3 (03:16→18:22)
[2020-08-06] MEDS: NOREPINEPHRINE 4 MG/250 ML 250 ML IV SCH ×3 (03:26→21:11)
[2020-08-06] MEDS: POTASSIUM CL 10MEQ/50ML IVPB 50 ML IV SCH (03:29)
[2020-08-06] MEDS: KCL 20 MEQ TAB (K-DUR) PO SCH (03:29)
[2020-08-06] MEDS: MAGNESIUM 1 GM/100 ML IVPB 100 ML IV SCH (03:29)
[2020-08-06] MEDS ORDERED: POTASSIUM CL 10MEQ/50ML IVPB 50 ML IV SCH (03:30)
[2020-08-06] MEDS: inSUlin ASPART (NovoLOG) 1 UNIT/0.01 ML (CHARGE PER UNIT) SC SCH ×4 (03:53→20:08)
[2020-08-06] MEDS: RT-ALBUTEROL/IPRATROPIUM 3 ML (DUONEB) VIAL INH SCH ×5 (05:16→22:29)
--- NOTE | 2020-08-06 06:09 | Pulmonary Progress Note ---
Subjective Time Seen by a Provider: 06:03 Subjective/Events-last exam Pt appears to be doing better. Sepsis Event Evaluation Height, Weight, BMI Height: 5'7.00" Weight: 198lbs. 7.7oz. 89.434402nl; 27.00 BMI Method:Stated Focused Exam Lactate Level 08/04/20 10:52: Lactic Acid Level 2.36*H 08/04/20 13:05: Lactic Acid Level 1.62 08/04/20 17:41: Lactic Acid Level 1.68 Exam Exam Vital Signs Date Time Temp Pulse Resp B/P (MAP) Pulse Ox O2 Delivery O2 Flow Rate FiO2 08/06/20 02:06 87 27 103/67 (77) 92 08/06/20 02:00 84 33 83/72 (76) Room Air 08/06/20 01:00 80 15 93/54 (65) 91 Room Air 08/06/20 00:49 80 08/06/20 00:00 86 16 90/50 (62) 90 Room Air 08/05/20 23:00 85 16 104/71 (79) 89 08/05/20 22:45 89 21 110/72 (85) 89 Room Air 08/05/20 22:30 89 39 106/64 (78) Room Air 08/05/20 22:15 83 21 102/67 (79) Room Air 08/05/20 22:00 90 26 95/69 (77) 92 Room Air 08/05/20 21:45 89 20 103/69 (76) 93 Room Air 08/05/20 21:42 93 Room Air 08/05/20 21:30 81 21 99/71 (78) Room Air 08/05/20 21:15 86 28 107/72 (80) Room Air 08/05/20 21:00 87 29 112/71 (84) 90 Room Air 08/05/20 20:09 36.1 08/05/20 20:00 Room Air 08/05/20 20:00 90 30 119/76 (90) 92 Room Air 08/05/20 19:00 89 10 116/77 (90) 92 Room Air 08/05/20 18:39 93 08/05/20 18:00 95 24 94 Room Air 08/05/20 17:00 103 34 94 Room Air 08/05/20 16:00 98 24 119/74 (89) 95 Room Air 08/05/20 16:00 Room Air 08/05/20 15:26 35.6 08/05/20 15:15 93 Room Air 08/05/20 15:00 92 28 106/66 (79) 94 Room Air 08/05/20 14:00 87 33 111/55 (73) 93 Room Air 08/05/20 13:25 89 08/05/20 13:13 36.0 08/05/20 13:00 91 30 109/73 (85) 92 Room Air 08/05/20 12:00 93 23 93/69 (77) 95 Room Air 08/05/20 12:00 Room Air 08/05/20 11:05 94 Room Air 08/05/20 11:00 92 24 106/78 (87) 93 Room Air 08/05/20 10:00 96 30 94/71 (79) 96 Room Air 08/05/20 09:00 93 32 87/59 (68) 95 Room Air 08/05/20 08:18 36.0 08/05/20 08:13 95 Room Air 08/05/20 08:05 Room Air 08/05/20 08:00 93 19 84/53 (63) 92 Room Air 08/05/20 07:02 93 08/05/20 07:00 92 17 91/70 (77) 94 Room Air I & O 08/06/20 07:00 Intake Total 3935 ml Output Total 1875 ml Balance 2060 ml Height & Weight Height: 5'7.00" Weight: 198lbs. 7.7oz. 89.939481gf; 27.00 BMI Method:Stated General Appearance: No Apparent Distress HEENT: PERRL/EOMI, TMs Normal, Normal ENT Inspection, Pharynx Normal Neck: Full Range of Motion, Normal Inspection, Non Tender, Supple Respiratory: No Accessory Muscle Use, No Respiratory Distress, Crackles (mild crackles noted in bilateral lower lung machado), Decreased Breath Sounds (nearly absent breath sounds bilateral upper lobes), Rhonci Cardiovascular: Regular Rate, Rhythm, No Murmur Capillary Refill: Less Than 3 Seconds Extremity: No Pedal Edema Neurologic/Psychiatric: Alert, Normal Mood/Affect Skin: Warm/Dry Results Lab Laboratory Tests 08/04/20 10:52 08/05/20 03:17 08/06/20 02:25 Assessment/Plan Assessment/Plan Left lung mass with post obstructive pneumonia -Pt will need bronchoscopy with EBUS -Will plan doing 1-2wks secondary to acute illness. -Will need PET scan as out pt. Influeza B -Tamiflu -Covid is negative Anemia -Monitor Severe sepsis -Zosyn and Vanco -Amaya cultures are pending -IVF LR at 125 -Decrease to 30cc/hr GI/DVT ppx -Start Lovenox and protonix CABRERA RAMIREZ DO Aug 06, 2020 06:09
[2020-08-06] MEDS: ENOXAPARIN 40 MG/0.4 ML (LOVENOX) SYR SC SCH (06:20)
[2020-08-06] MEDS: methylPREDNISolone 125 MG (Solu-MEDROL) VIAL IV SCH ×3 (06:20→18:08)
[2020-08-06] MEDS: PIPERACILLIN/TAZO 4.5 GM/NS 100 ML IV SCH ×6 (06:20→22:33)
--- NOTE | 2020-08-06 08:36 | Diagnostic Imaging Report ---
INDICATION: Dyspnea. TECHNIQUE: Single view chest 3:17 AM. CORRELATION STUDY: 08/05/2020 FINDINGS: Left upper extremity central line stable. Heart size remains enlarged, mediastinum prominent. Vasculature overall appears increased from prior. Scattered mixed alveolar and interstitial infiltrates throughout both lung machado persisting with slight more focal density in the right upper lobe. Additional more focal asymmetric prominence over the left perihilar region. IMPRESSION: 1. Extensive mixed alveolar and interstitial infiltrate throughout both lung machado, stable to perhaps slightly progressed. More focal asymmetric density about the right upper lobe and left perihilar region persisting as well. 2. Continued cardiac enlargement with underlying vascular congestion also suggested. Dictated by: Dictated on workstation # [id number]
[2020-08-06] MEDS ORDERED: KCL 20 MEQ TAB (K-DUR) PO ONE (09:00)
[2020-08-06] MEDS: PREGABALIN 150 MG (LYRICA) CAPSULE PO SCH ×2 (09:05→20:07)
[2020-08-06] MEDS: OSELTAMIVIR 75 MG (TAMIFLU) CAPSULE PO SCH ×2 (09:06→20:08)
--- NOTE | 2020-08-06 10:32 | Progress Note ---
CARROLL HOOK III MED STUDENT 08/06/20 1032: Subjective Date Seen by a Provider: Aug 06, 2020 Time Seen by a Provider: 10:45 Subjective/Events-last exam Pt is a 65 yo male who was admitted on 08/04 due to bacterial pna, influenza B, diarrhea w/ worsening muscle aches, shortness of breath and fatigue. Today pt says he is doing very well without any complaints. He thinks his breathing is much improved. Says that his stools are starting to form up more and no longer diarrhea. He appears to understand the malignant looking mass that was found on CT, and plans on seeing Dr. Stokes in clinic on 08/17 followed by EBUS on 08/19. Review of Systems General: No Chills, No Night Sweats, No Fatigue, No Malaise HEENT: No Head Aches, No Eye Pain, No Ear Pain, No Dysphasia, No Sinus Congestion, No Post Nasal Drip, No Sore Throat Pulmonary: No Dyspnea; Cough; No Pleuritic Chest Pain Cardiovascular: No: Chest Pain, Palpitations, Orthopnea, Paroxysmal Noc. Dyspnea, Edema, Lt Headedness Gastrointestinal: No: Nausea, Vomiting, Abdominal Pain, Diarrhea, Constipation, Melena, Hematochezia Focused Exam Sepsis Stage: Severe Sepsis Reason for ruling out sepsis: white count is trending down, not tachycardic or hypotensive, norepi given Possible Source: Pulmonary Lactate Level 08/04/20 10:52: Lactic Acid Level 2.36*H 08/04/20 13:05: Lactic Acid Level 1.62 08/04/20 17:41: Lactic Acid Level 1.68 Objective Exam Last Set of Vital Signs Vital Signs Date Time Temp Pulse Resp B/P (MAP) Pulse Ox O2 Delivery O2 Flow Rate FiO2 08/06/20 08:18 35.4 98 22 119/77 (91) 94 Nasal Cannula 1.00 Capillary Refill : Less Than 3 Seconds I&O Intake and Output 08/06/20 00:00 Intake Total 4385 ml Output Total 2850 ml Balance 1535 ml Intake Oral 2005 ml IV Total 2380 ml Output Urine Total 2850 ml # Bowel Movements 6 General: Alert, Oriented X3, Cooperative, No Acute Distress HEENT: Atraumatic, PERRLA Neck: Supple, No JVD, No Thyromegaly Lungs: Normal Air Movement, Other (some noted expiratory wheezing in bilateral lower lung machado) Heart: Regular Rate, Normal S1, Normal S2, No Murmurs Abdomen: Normal Bowel Sounds, Soft, No Tenderness, No Hepatosplenomegaly, No Masses Psych/Mental Status: Mental Status NL, Mood NL Results Lab Laboratory Tests 08/06/20 02:25 Laboratory Tests Test 08/05/20 13:03 08/05/20 15:26 08/05/20 20:09 08/06/20 02:25 Range/Units Glucometer 192 H 198 H 231 H 70-110 MG/DL White Blood Count 11.2 H 4.3-11.0 10^3/uL Red Blood Count 3.65 L 4.30-5.52 10^6/uL Hemoglobin 9.8 #L 13.3-17.7 g/dL Hematocrit 32 L 40-54 % Mean Corpuscular Volume 87 80-99 fL Mean Corpuscular Hemoglobin 27 25-34 pg Mean Corpuscular Hemoglobin Concent 31 L 32-36 g/dL Red Cell Distribution Width 16.8 H 10.0-14.5 % Platelet Count 347 130-400 10^3/uL Mean Platelet Volume 9.8 9.0-12.2 fL Immature Granulocyte % (Auto) 1 % Neutrophils (%) (Auto) 88 H 42-75 % Lymphocytes (%) (Auto) 8 L 12-44 % Monocytes (%) (Auto) 4 0-12 % Eosinophils (%) (Auto) 0 0-10 % Basophils (%) (Auto) 0 0-10 % Neutrophils # (Auto) 9.8 H 1.8-7.8 10^3/uL Lymphocytes # (Auto) 0.8 L 1.0-4.0 10^3/uL Monocytes # (Auto) 0.4 0.0-1.0 10^3/uL Eosinophils # (Auto) 0.0 0.0-0.3 10^3/uL Basophils # (Auto) 0.0 0.0-0.1 10^3/uL Immature Granulocyte # (Auto) 0.1 0.0-0.1 10^3/uL Sodium Level 140 135-145 MMOL/L Potassium Level 3.6 3.6-5.0 MMOL/L Chloride Level 108 H 98-107 MMOL/L Carbon Dioxide Level 16 L 21-32 MMOL/L Anion Gap 16 H 5-14 MMOL/L Blood Urea Nitrogen 23 H 7-18 MG/DL Creatinine 0.80 0.60-1.30 MG/DL Estimat Glomerular Filtration Rate > 60 BUN/Creatinine Ratio 29 Glucose Level 188 H 70-105 MG/DL Calcium Level 8.1 L 8.5-10.1 MG/DL Phosphorus Level 2.7 2.3-4.7 MG/DL Magnesium Level 1.9 1.6-2.4 MG/DL B-Type Natriuretic Peptide 653.3 H <100.0 PG/ML B-Type Natriuretic Peptide 653.3H Microbiology 08/04/20 MRSA Screen - Final, Complete MRSA not isolated 08/04/20 Urine Culture - Final, Complete NO GROWTH 08/04/20 Blood Culture - Preliminary, Resulted No growth Meds Home Meds Active Reported Pregabalin 75 Mg Capsule 150 Mg PO BID TAKES 2 (75MG) CAPS Invokana (Canagliflozin) 300 Mg Tablet 300 Mg PO DAILY Methotrexate (Methotrexate Sodium) 2.5 Mg Tablet 17.5 Mg PO MON TAKES 7 (2.5MG) TABS Glipizide 10 Mg Tablet 10 Mg PO BID Albuterol Sulfate 2.5 Mg/3 Ml Vial.neb 2.5 Mg NEB Q4H PRN Lisinopril 20 Mg Tablet 20 Mg PO DAILY Atorvastatin Calcium 40 Mg Tablet 40 Mg PO HS Ventolin Hfa (Albuterol Sulfate) 18 Gm Hfa.aer.ad 2 Puff IH Q4H PRN Radiology Repeat Chest Xray Date of Exam:08/06/20 CHEST 1 VIEW, AP/PA ONLY INDICATION: Dyspnea. TECHNIQUE: Single view chest 3:17 AM. CORRELATION STUDY: 08/05/2020 FINDINGS: Left upper extremity central line stable. Heart size remains enlarged, mediastinum prominent. Vasculature overall appears increased from prior. Scattered mixed alveolar and interstitial infiltrates throughout both lung machado persisting with slight more focal density in the right upper lobe. Additional more focal asymmetric prominence over the left perihilar region. IMPRESSION: 1. Extensive mixed alveolar and interstitial infiltrate throughout both lung machado, stable to perhaps slightly progressed. More focal asymmetric density about the right upper lobe and left perihilar region persisting as well. 2. Continued cardiac enlargement with underlying vascular congestion also suggested. Assessment/Plan Assessment/Plan Assess & Plan/Chief Complaint Pt is a 65 year old male who was admitted on 08/04 with concerns for the flu with suspected bacterial pna and severe sepsis. Sepsis resolving Influenza Bacterial pna CT finding concerning for cancer of Left upper and lower lung with potential mets that require further workup DM2 Plan: pt appears to be in no apparent distress Has norepi ordered as a vasopressor for BP Pt is on zosyn and vanc for his bacterial pna and tamiflu for influenza. Can d/c vanc as MRSA was not grown He is currently on methylprednisolone, could consider decreasing dosage as pt is not having any COPD exacerbations at this time Can remove gross at this time, pt able to ambulate on his own well enough. monitor fluid output Per Dr. Stokes, pt is on step-down. Can consider moving to floor off ICU status Plan is to f/u with Dr. Stokes in clinic on 08/17/2020 and obtain EBUS on 08/19/2020 Final Diagnosis Severe sepsis w/ bacterial pna and influenza B Suspicious L lung lesion concerning for malignancy Diagnosis/Problems Diagnosis/Problems (1) Severe sepsis Status: Acute Assessment & Plan: on vanc, zosyn, IVF, tamiflu, norepi (2) Left upper lobe pneumonia Status: Acute Assessment & Plan: on vanc and zosyn Qualifiers: Qualified Codes: J18.9 - Pneumonia, unspecified organism (3) Influenza B Status: Acute Assessment & Plan: on tamiflu (4) Mass of left lung Status: Acute Assessment & Plan: plan to f/u after treatment of pna and influenza (5) Rheumatoid arthritis Status: Chronic (6) Psoriasis Status: Chronic (7) COPD (chronic obstructive pulmonary disease) Status: Chronic Assessment & Plan: on 2L NC at night and solumedrol, may consider decreasing solumedrol as he is not in any COPD exacerbation (8) Diabetes Status: Chronic Qualifiers: Qualified Codes: E11.65 - Type 2 diabetes mellitus with hyperglycemia (9) Hypertension Status: Chronic Qualifiers: Qualified Codes: I10 - Essential (primary) hypertension (10) Hyperlipidemia Status: Chronic Clinical Quality Measures DVT/VTE Risk/Contraindication: Risk Factor Score Per Nursin RFS Level Per Nursing on Admit: 4+=Very High FÁTIMA BRADY MD 08/06/20 9052: Assessment/Plan Assessment/Plan Assess & Plan/Chief Complaint Agree with above documentation - Transfer patient to 4th floor when ok with Dr Stokes - Continue to titrate down off oxygen - Discussed importance of smoking cessation - Will have EBUS done with Dr Stokes 08/19/2020 - Possible d/c tomorrow Supervisory-Addendum Brief Verification & Attestation Participated in pt care: history, physical Personally performed: exam, history Care discussed with: Medical Student Procedures: n/a Verification and Attestation of Medical Student E/M Service A medical student performed and documented this service in my presence. I reviewed and verified all information documented by the medical student and made modifications to such information, when appropriate. I personally performed the physical exam and medical decision making. Fátima Brady, Aug 06, 2020,17:31 CARROLL HOOK III MED STUDENT Aug 06, 2020 10:32 FÁTIMA BRADY MD Aug 06, 2020 17:32
[2020-08-06] MEDS: MELATONIN 3 MG TABLET PO SCH (20:07)
[2020-08-06] MEDS: LACTATED RINGERS 1,000 ML IV SCH (21:11)
[2020-08-07] MEDS: methylPREDNISolone 125 MG (Solu-MEDROL) VIAL IV SCH ×3 (00:51→11:08)
[2020-08-07] MEDS: RT-ALBUTEROL/IPRATROPIUM 3 ML (DUONEB) VIAL INH SCH ×6 (02:43→21:39)
[2020-08-07 02:46] LABS: BASOPHILS % (AUTO) 0 % (0-10); EOSINOPHILS % (AUTO) 0 % (0-10); HEMATOCRIT 31 % (40-54); HEMOGLOBIN 9.5 g/dL (13.3-17.7); LYMPHOCYTES # (AUTO) 0.8 10^3/uL (1.0-4.0); LYMPHOCYTES % (AUTO) 8 % (12-44); MEAN CORPUSCULAR HEMOGLOBIN 27 pg (25-34); MEAN CORPUSCULAR HGB CONC 31 g/dL (32-36); MEAN CORPUSCULAR VOLUME 88 fL (80-99); MEAN PLATELET VOLUME 9.7 fL (9.0-12.2); MONOCYTES # (AUTO) 0.5 10^3/uL (0.0-1.0); MONOCYTES % (AUTO) 5 % (0-12); NEUTROPHILS % (AUTO) 85 % (42-75); PLATELET COUNT 344 10^3/uL (130-400); WHITE BLOOD COUNT 9.4 10^3/uL (4.3-11.0)
[2020-08-07 02:57] LABS: CHLORIDE 106 MMOL/L (98-107); POTASSIUM 3.8 MMOL/L (3.6-5.0); SODIUM 137 MMOL/L (135-145)
[2020-08-07 02:58] LABS: CALCIUM 7.8 MG/DL (8.5-10.1); GLUCOSE 332 MG/DL (70-105)
[2020-08-07 03:00] LABS: CARBON DIOXIDE 20 MMOL/L (21-32)
[2020-08-07 03:02] LABS: CREATININE SERUM 0.71 MG/DL (0.60-1.30); GFR ESTIMATED > 60; PHOSPHORUS 1.6 MG/DL (2.3-4.7)
[2020-08-07 03:03] LABS: BUN/CREATININE RATIO 30
[2020-08-07 03:05] LABS: MAGNESIUM 1.9 MG/DL (1.6-2.4)
[2020-08-07] MEDS: VASOPRESSIN INJECTION 20 UNIT in NS (IVPB) 100 ML IV SCH ×2 (04:02→11:00)
[2020-08-07] MEDS: NOREPINEPHRINE 4 MG/250 ML 250 ML IV SCH ×2 (04:02→11:00)
--- NOTE | 2020-08-07 04:08 | Diagnostic Imaging Report ---
Indication: Shortness of breath Portable chest 2:42 AM Left upper extremity PICC line tip projects over the SVC. There are coarse interstitial infiltrates in the lungs. Heart appears to mildly enlarged but stable. There are no effusions or pneumothoraces. IMPRESSION: Coarse interstitial infiltrates of the lungs unchanged from previous day. Dictated by: Dictated on workstation # [id number]
--- NOTE | 2020-08-07 05:31 | Pulmonary Progress Note ---
Subjective Time Seen by a Provider: 05:29 Subjective/Events-last exam No complications noted. Sepsis Event Evaluation Height, Weight, BMI Height: 5'7.00" Weight: 198lbs. 7.7oz. 89.253849ys; 27.00 BMI Method:Stated Focused Exam Lactate Level 08/04/20 10:52: Lactic Acid Level 2.36*H 08/04/20 13:05: Lactic Acid Level 1.62 08/04/20 17:41: Lactic Acid Level 1.68 Exam Exam Vital Signs Date Time Temp Pulse Resp B/P (MAP) Pulse Ox O2 Delivery O2 Flow Rate FiO2 08/07/20 03:00 84 27 118/73 (88) 94 Nasal Cannula 1.00 08/07/20 02:44 93 Nasal Cannula 1.00 08/07/20 02:00 84 23 120/72 (88) 93 Nasal Cannula 1.00 08/07/20 01:00 86 35 112/70 (84) 90 Nasal Cannula 1.00 08/07/20 00:50 98 08/07/20 00:00 82 105/75 (85) 93 Nasal Cannula 1.00 08/07/20 00:00 36.1 08/06/20 23:00 80 35 103/53 (67) 92 Nasal Cannula 1.00 08/06/20 22:30 92 Nasal Cannula 1.00 08/06/20 22:00 82 33 107/69 (81) 94 Nasal Cannula 1.00 08/06/20 21:00 Room Air 08/06/20 21:00 86 30 113/66 (79) 94 Nasal Cannula 1.00 08/06/20 20:00 81 106/68 (80) 91 Nasal Cannula 1.00 08/06/20 19:43 36.2 08/06/20 19:00 85 08/06/20 19:00 85 37 111/68 (80) 92 Nasal Cannula 1.00 08/06/20 16:00 36.2 08/06/20 16:00 91 25 105/61 (76) 96 Nasal Cannula 1.00 08/06/20 15:13 94 Nasal Cannula 1.00 08/06/20 13:00 87 17 125/73 (90) 93 Nasal Cannula 1.00 08/06/20 12:40 92 08/06/20 12:00 86 32 109/66 (80) 93 Nasal Cannula 1.00 08/06/20 11:35 35.3 93 26 104/64 (77) 92 Nasal Cannula 1.00 08/06/20 11:03 95 Nasal Cannula 1.00 08/06/20 09:00 Room Air 08/06/20 08:18 35.4 98 22 119/77 (91) 94 Nasal Cannula 1.00 08/06/20 08:00 89 24 119/77 (91) 91 Room Air 08/06/20 07:18 83 08/06/20 06:48 95 Nasal Cannula 1.00 08/06/20 06:19 90 24 92 08/06/20 06:00 85 28 114/70 (83) 91 Room Air I & O 08/07/20 07:00 Intake Total 1750 ml Output Total 1975 ml Balance -225 ml Height & Weight Height: 5'7.00" Weight: 198lbs. 7.7oz. 89.314692nj; 27.00 BMI Method:Stated General Appearance: No Apparent Distress HEENT: PERRL/EOMI, TMs Normal, Normal ENT Inspection, Pharynx Normal Neck: Full Range of Motion, Normal Inspection, Non Tender, Supple Respiratory: No Accessory Muscle Use, No Respiratory Distress, Crackles (mild crackles noted in bilateral lower lung machado), Decreased Breath Sounds (nearly absent breath sounds bilateral upper lobes), Rhonci Cardiovascular: Regular Rate, Rhythm, No Murmur Capillary Refill: Less Than 3 Seconds Extremity: No Pedal Edema Neurologic/Psychiatric: Alert, Normal Mood/Affect Skin: Warm/Dry Results Lab Laboratory Tests 08/06/20 02:25 08/07/20 02:35 Assessment/Plan Assessment/Plan Left lung mass with post obstructive pneumonia -Pt will need bronchoscopy with EBUS -F/U in my office 08/17 -Pt is scheduled for EBUS 08/19 -Will need PET scan as out pt. Influeza B -Tamiflu -Covid is negative Anemia -Monitor Severe sepsis -Zosyn -MRSA swab is negative -Amaya cultures are pending -IVF SL GI/DVT ppx -Start Lovenox and protonix CABRERA RAMIREZ DO Aug 07, 2020 05:31
[2020-08-07] MEDS: KCL 20 MEQ TAB (K-DUR) PO SCH (06:04)
[2020-08-07] MEDS: MAGNESIUM 1 GM/100 ML IVPB 100 ML IV SCH (06:04)
[2020-08-07] MEDS: POTASSIUM CL 10MEQ/50ML IVPB 50 ML IV SCH (06:04)
[2020-08-07] MEDS: inSUlin ASPART (NovoLOG) 1 UNIT/0.01 ML (CHARGE PER UNIT) SC SCH ×4 (06:05→21:21)
[2020-08-07] MEDS: ENOXAPARIN 40 MG/0.4 ML (LOVENOX) SYR SC SCH (06:05)
[2020-08-07] MEDS: PIPERACILLIN/TAZO 4.5 GM/NS 100 ML IV SCH ×6 (06:05→23:36)
[2020-08-07] MEDS: PREGABALIN 150 MG (LYRICA) CAPSULE PO SCH ×2 (07:58→21:21)
[2020-08-07] MEDS: OSELTAMIVIR 75 MG (TAMIFLU) CAPSULE PO SCH ×2 (07:58→21:21)
--- NOTE | 2020-08-07 08:55 | Progress Note ---
CARROLL HOOK III MED STUDENT 08/07/20 0855: Subjective Date Seen by a Provider: Aug 07, 2020 Time Seen by a Provider: 10:00 Subjective/Events-last exam Pt is a 65yo male who was admitted with concerns of severe sepsis complicated with bacterial pna and influenza b. Pt states he is doing very well today. He was busy trying to figure out what a building he could see from his window was when I walked in. He notes he still has a cough but is not coughing up anything. Denies any significant shortness of breath that is different from baseline, denies chest pain, abdominal pain, diarrhea has now resolved. His only question was to whether he could get his gross taken out and when he would be able to go home so he could start moving and getting some of his strength back that he thinks he lost while admitted. Review of Systems General: No Chills, No Night Sweats, No Fatigue, No Malaise HEENT: No Head Aches, No Eye Pain, No Ear Pain, No Dysphasia, No Sinus Congestion, No Post Nasal Drip, No Sore Throat Pulmonary: No Dyspnea; Cough; No Pleuritic Chest Pain Cardiovascular: No: Chest Pain, Palpitations, Orthopnea, Paroxysmal Noc. Dyspnea, Edema, Lt Headedness Gastrointestinal: No: Nausea, Vomiting, Abdominal Pain, Diarrhea, Constipation, Melena, Hematochezia Focused Exam Sepsis Stage: Severe Sepsis Reason for ruling out sepsis: no HypoTN, no white count, no fever, no tachy Possible Source: Pulmonary Lactate Level 08/04/20 10:52: Lactic Acid Level 2.36*H 08/04/20 13:05: Lactic Acid Level 1.62 08/04/20 17:41: Lactic Acid Level 1.68 Time of Focused Exam: 08:30 Respiratory: Chest Non Tender, Normal Breath Sounds, No Accessory Muscle Use, No Respiratory Distress, Wheezing (noted in bilateral lower lung machado in expiration) Cardiovascular: Regular Rate, Rhythm, No Edema, No Gallop, No JVD, No Murmur, Normal Peripheral Pulses Capillary Refill: Less Than 3 Seconds Skin: normal color, warm/dry Objective Exam Last Set of Vital Signs Vital Signs Date Time Temp Pulse Resp B/P (MAP) Pulse Ox O2 Delivery O2 Flow Rate FiO2 08/07/20 08:00 89 34 112/65 (81) 94 Nasal Cannula 1.00 08/07/20 00:00 36.1 Capillary Refill : Less Than 3 Seconds I&O Intake and Output 08/06/20 23:59 Intake Total 2050 ml Output Total 2140 ml Balance -90 ml Intake Oral 2050 ml Output Urine Total 2140 ml # Bowel Movements 2 General: Alert, Oriented X3, Cooperative, No Acute Distress HEENT: Atraumatic, PERRLA Neck: Supple, No JVD Lungs: Normal Air Movement, Other (some expiratory wheezing noted in lower lung machado, much improved from admission) Heart: Regular Rate, Normal S1, Normal S2, No Murmurs Abdomen: Normal Bowel Sounds, Soft, No Tenderness Psych/Mental Status: Mental Status NL, Mood NL Results Lab Laboratory Tests 08/07/20 02:35 Laboratory Tests Test 08/06/20 11:35 08/06/20 15:27 08/06/20 19:22 08/07/20 02:35 Range/Units Glucometer 207 H 301 H 251 H 70-110 MG/DL White Blood Count 9.4 4.3-11.0 10^3/uL Red Blood Count 3.54 L 4.30-5.52 10^6/uL Hemoglobin 9.5 L 13.3-17.7 g/dL Hematocrit 31 L 40-54 % Mean Corpuscular Volume 88 80-99 fL Mean Corpuscular Hemoglobin 27 25-34 pg Mean Corpuscular Hemoglobin Concent 31 L 32-36 g/dL Red Cell Distribution Width 17.0 H 10.0-14.5 % Platelet Count 344 130-400 10^3/uL Mean Platelet Volume 9.7 9.0-12.2 fL Immature Granulocyte % (Auto) 1 % Neutrophils (%) (Auto) 85 H 42-75 % Lymphocytes (%) (Auto) 8 L 12-44 % Monocytes (%) (Auto) 5 0-12 % Eosinophils (%) (Auto) 0 0-10 % Basophils (%) (Auto) 0 0-10 % Neutrophils # (Auto) 8.0 H 1.8-7.8 10^3/uL Lymphocytes # (Auto) 0.8 L 1.0-4.0 10^3/uL Monocytes # (Auto) 0.5 0.0-1.0 10^3/uL Eosinophils # (Auto) 0.0 0.0-0.3 10^3/uL Basophils # (Auto) 0.0 0.0-0.1 10^3/uL Immature Granulocyte # (Auto) 0.1 0.0-0.1 10^3/uL Sodium Level 137 135-145 MMOL/L Potassium Level 3.8 3.6-5.0 MMOL/L Chloride Level 106 98-107 MMOL/L Carbon Dioxide Level 20 L 21-32 MMOL/L Anion Gap 11 5-14 MMOL/L Blood Urea Nitrogen 21 H 7-18 MG/DL Creatinine 0.71 0.60-1.30 MG/DL Estimat Glomerular Filtration Rate > 60 BUN/Creatinine Ratio 30 Glucose Level 332 H 70-105 MG/DL Calcium Level 7.8 L 8.5-10.1 MG/DL Phosphorus Level 1.6 L 2.3-4.7 MG/DL Magnesium Level 1.9 1.6-2.4 MG/DL Microbiology 08/04/20 MRSA Screen - Final, Complete MRSA not isolated 08/04/20 Urine Culture - Final, Complete NO GROWTH 08/04/20 Blood Culture - Preliminary, Resulted No growth Meds Home Meds Active Reported Pregabalin 75 Mg Capsule 150 Mg PO BID TAKES 2 (75MG) CAPS Invokana (Canagliflozin) 300 Mg Tablet 300 Mg PO DAILY Methotrexate (Methotrexate Sodium) 2.5 Mg Tablet 17.5 Mg PO MON TAKES 7 (2.5MG) TABS Glipizide 10 Mg Tablet 10 Mg PO BID Albuterol Sulfate 2.5 Mg/3 Ml Vial.neb 2.5 Mg NEB Q4H PRN Lisinopril 20 Mg Tablet 20 Mg PO DAILY Atorvastatin Calcium 40 Mg Tablet 40 Mg PO HS Ventolin Hfa (Albuterol Sulfate) 18 Gm Hfa.aer.ad 2 Puff IH Q4H PRN Radiology Repeat chest xray Date of Exam:08/07/20 CHEST 1 VIEW, AP/PA ONLY Indication: Shortness of breath Portable chest 2:42 AM Left upper extremity PICC line tip projects over the SVC. There are coarse interstitial infiltrates in the lungs. Heart appears to mildly enlarged but stable. There are no effusions or pneumothoraces. IMPRESSION: Coarse interstitial infiltrates of the lungs unchanged from previous day. Assessment/Plan Assessment/Plan Assess & Plan/Chief Complaint Pt is a 65 year old male who was admitted on 08/04 with concerns for the flu with suspected bacterial pna and severe sepsis. Sepsis resolving Influenza Bacterial pna CT finding concerning for cancer of Left upper and lower lung with potential mets that require further workup DM2 Plan: pt appears to be in no apparent distress though still has expiratory wheezing in lower lung machado Will obtain walking O2 study to determine oxygen need for discharge Pt is on zosyn for his bacterial pna and tamiflu for influenza. d/c vanc as MRSA was not grown He is currently on methylprednisolone, could consider decreasing dosage as pt is not having any COPD exacerbations at this time Can remove gross at this time, pt able to ambulate on his own well enough. monitor fluid output Can move pt to floor off ICU status once bed is available Plan is to f/u with Dr. Stokes in clinic on 08/17/2020 and obtain EBUS on 08/19/2020 Final Diagnosis severe sepsis 2/2 bacterial pna and influenza b L lung mass concerning for malignancy Diagnosis/Problems Diagnosis/Problems (1) Severe sepsis Status: Acute Assessment & Plan: on vanc, zosyn, IVF, tamiflu, norepi (2) Left upper lobe pneumonia Status: Acute Assessment & Plan: on vanc and zosyn Qualifiers: Qualified Codes: J18.9 - Pneumonia, unspecified organism (3) Influenza B Status: Acute Assessment & Plan: on tamiflu (4) Mass of left lung Status: Acute Assessment & Plan: plan to f/u after treatment of pna and influenza (5) Rheumatoid arthritis Status: Chronic (6) Psoriasis Status: Chronic (7) COPD (chronic obstructive pulmonary disease) Status: Chronic Assessment & Plan: on 2L NC at night and solumedrol, may consider decreasing solumedrol as he is not in any COPD exacerbation (8) Diabetes Status: Chronic Qualifiers: Qualified Codes: E11.65 - Type 2 diabetes mellitus with hyperglycemia (9) Hypertension Status: Chronic Qualifiers: Qualified Codes: I10 - Essential (primary) hypertension (10) Hyperlipidemia Status: Chronic Clinical Quality Measures DVT/VTE Risk/Contraindication: Risk Factor Score Per Nursin RFS Level Per Nursing on Admit: 4+=Very High FÁTIMA BRADY MD 08/07/20 1258: Supervisory-Addendum Brief Verification & Attestation Participated in pt care: history, physical Personally performed: exam, history Care discussed with: Medical Student Procedures: n/a Verification and Attestation of Medical Student E/M Service A medical student performed and documented this service in my presence. I reviewed and verified all information documented by the medical student and made modifications to such information, when appropriate. I personally performed the physical exam and medical decision making. Fátima Brady, Aug 07, 2020,12:56 Influenza B Bilateral PNA Left Lung Mass Hypoxia Sepsis: Resolved COPD Exacerbation Plan: Complete Tamiflu, Continue to titrate oxygen as tolerated, patient uses oxygen at night at baseline, Has F.u with Dr Stokes for bx on 08/19/20. Patient unde rstand importance of smoking cessation. Possible d/c home tomorrow. CARROLL HOOK III MED STUDENT Aug 07, 2020 08:55 FÁTIMA BRADY MD Aug 07, 2020 12:58
--- NOTE | 2020-08-07 14:57 | NUR ---
"RD ASSESSMENT PMHx: hypercholesterolemia; HTN; DM: RA; COPD; pneumonia; PT INTERACTION: Note all diet information for nutrition assessment is per Ag RN or per chart review. Ag states current appetite appears good. Note avg PO intake >75% x2d, per chart review. Ga states some issues with diarrhea on 08/06. Note last BM was 08/06 and pt not currently on bowel regimen per chart review. Note unable to determine recent wt hx, per chart review. Note unable to determine current level of DM management, and unable to determine recent HbA1c, per chart review. Est. kcal needs: 6308-2811 kcal | 25-30 kcal/kg Est. Pro needs: 45-56 g Pro | 0.8-1.0 g Pro/kg PES STATEMENT: Given current PO intake, no nutrition diagnosis at this time (NO-1.1). INTERVENTION: Continue with current diet order of CHO 60g/m 1snack diet. Will continue to follow and reassess as pt needs, intake, and status change. Elvia HAMILTON, MS RD LD [phone] cell"
--- NOTE | 2020-08-07 16:33 | NUR ---
Discussed discharge plans with pt who lives alone at the [facility] [address] locally. He has home oxygen and portable tanks in his home but doesn't remember his provider. He does admit to feeling weak but would like to have some assistance within the home. Have initiated a referral with his Medicaid provider. He also thinks Home Health Care Nursing with Occupational and Physical Therapies would be of assist in getting his strength back. He chose [facility] and they are aware of possible referral if pt discharged tomorrow and Home Health ordered by his physician. Pt states he has arranged for transport home if discharged tomorrow.
[2020-08-07] MEDS: predniSONE 20 MG TAB PO SCH (16:41)
--- NOTE | 2020-08-07 18:50 | NUR ---
Pt transferred to room 420, report given to Delores KHALIL.
--- NOTE | 2020-08-07 18:55 | NUR ---
ORIENTED TO ROOM, ALERT AND ORIENTED, DENIES PAIN OR SOB, CALL LIGHT WITHIN REACH, ISOLATION CONTINUED FOR FLU, IV PICC SITE WITHOUT REDNESS IN LEFT UPPER ARM
[2020-08-07 19:01] VITALS: BP 144/91
[2020-08-07] MEDS: MELATONIN 3 MG TABLET PO SCH (21:21)
[2020-08-08 00:10] VITALS: BP 120/72
[2020-08-08] MEDS: RT-ALBUTEROL/IPRATROPIUM 3 ML (DUONEB) VIAL INH SCH ×7 (01:38→23:07)
[2020-08-08 04:55] VITALS: BP 132/86
[2020-08-08] MEDS: ENOXAPARIN 40 MG/0.4 ML (LOVENOX) SYR SC SCH (06:49)
[2020-08-08] MEDS: inSUlin ASPART (NovoLOG) 1 UNIT/0.01 ML (CHARGE PER UNIT) SC SCH ×4 (06:50→21:10)
[2020-08-08] MEDS: PIPERACILLIN/TAZO 4.5 GM/NS 100 ML IV SCH ×6 (06:50→20:22)
[2020-08-08 07:50] VITALS: BP 129/73
[2020-08-08] MEDS: predniSONE 20 MG TAB PO SCH ×2 (08:48→17:02)
[2020-08-08] MEDS: PREGABALIN 150 MG (LYRICA) CAPSULE PO SCH ×2 (08:49→20:18)
[2020-08-08] MEDS: OSELTAMIVIR 75 MG (TAMIFLU) CAPSULE PO SCH ×2 (09:51→20:18)
[2020-08-08 11:20] VITALS: BP 108/67
--- NOTE | 2020-08-08 12:15 | Progress Note - Hospitalist ---
Subjective HPI/CC On Admission Date Seen by Provider: Aug 08, 2020 Time Seen by Provider: 11:00 Subjective/Events-last exam Patient doing better Coarse BS noted Nebs ordered No pain Reviewed meds and labs Ambulating in room ok Focused Exam Time of Focused Exam: 08:30 Objective Exam Vital Signs Vital Signs Date Time Temp Pulse Resp B/P (MAP) Pulse Ox O2 Delivery O2 Flow Rate FiO2 08/09/20 10:58 94 Room Air 08/09/20 09:00 2.00 08/09/20 08:00 36.0 88 20 120/61 (80) Capillary Refill : Less Than 3 SecondsLess Than 3 Seconds General Appearance: No Apparent Distress, WD/WN, Chronically ill Respiratory: No Accessory Muscle Use, No Respiratory Distress, Crackles, Rales, Wheezing Cardiovascular: Regular Rate, Rhythm Neurologic/Psychiatric: Alert, Oriented x3, No Motor/Sensory Deficits, Normal Mood/Affect Results/Procedures Lab Patient resulted labs reviewed. Assessment/Plan Assessment and Plan Assess & Plan/Chief Complaint Assessment: Left lung mass with obstructive PNA Influenza B Anemia likely of cancer s/p severe sepsis DVT PPx Plan: IV abx Supportive care Monitor O2 Nebs Clinical Quality Measures DVT/VTE Risk/Contraindication: Risk Factor Score Per Nursin RFS Level Per Nursing on Admit: 4+=Very High TISH CHI DO Aug 08, 2020 12:15
[2020-08-08 16:00] VITALS: BP 130/78
[2020-08-08] MEDS: MELATONIN 3 MG TABLET PO SCH (20:18)
[2020-08-08 23:53] VITALS: BP 116/63
[2020-08-09] MEDS: inSUlin ASPART (NovoLOG) 1 UNIT/0.01 ML (CHARGE PER UNIT) SC SCH ×4 (05:43→21:54)
[2020-08-09] MEDS: ENOXAPARIN 40 MG/0.4 ML (LOVENOX) SYR SC SCH (05:47)
[2020-08-09] MEDS: PIPERACILLIN/TAZO 4.5 GM/NS 100 ML IV SCH ×4 (05:48→15:47)
[2020-08-09] MEDS: RT-ALBUTEROL/IPRATROPIUM 3 ML (DUONEB) VIAL INH SCH ×5 (06:30→23:03)
[2020-08-09 08:00] VITALS: BP 120/61
[2020-08-09] MEDS: PREGABALIN 150 MG (LYRICA) CAPSULE PO SCH ×2 (08:47→21:54)
[2020-08-09] MEDS: predniSONE 20 MG TAB PO SCH ×2 (08:47→17:51)
--- NOTE | 2020-08-09 12:14 | Progress Note - Hospitalist ---
Subjective HPI/CC On Admission Date Seen by Provider: Aug 09, 2020 Time Seen by Provider: 11:00 Subjective/Events-last exam Patient feels much better Less cough Less dyspnea Has own Neb machine at home Tolerating abx O2 maintained Labs reviewed DC home tomorrow once PET scan ordered Review of Systems General: Fatigue, Malaise Pulmonary: Dyspnea, Cough Focused Exam Time of Focused Exam: 08:30 Objective Exam Vital Signs Vital Signs Date Time Temp Pulse Resp B/P (MAP) Pulse Ox O2 Delivery O2 Flow Rate FiO2 08/09/20 19:08 92 Room Air 08/09/20 16:00 36.2 92 20 139/80 (99) 08/09/20 09:00 2.00 Capillary Refill : Less Than 3 SecondsLess Than 3 Seconds General Appearance: No Apparent Distress, WD/WN, Anxious, Chronically ill Respiratory: Crackles, Decreased Breath Sounds, Rales, Wheezing Cardiovascular: Regular Rate, Rhythm Neurologic/Psychiatric: Alert, Oriented x3, No Motor/Sensory Deficits, Normal Mood/Affect Results/Procedures Lab Laboratory Tests 08/09/20 12:31 Patient resulted labs reviewed. Assessment/Plan Assessment and Plan Assess & Plan/Chief Complaint Assessment: Left lung mass with obstructive PNA Influenza B Anemia likely of cancer s/p severe sepsis DVT PPx Plan: IV abx Supportive care Monitor O2 Nebs 08/09/20: Nebs O2 Abx Monitor closely Clinical Quality Measures DVT/VTE Risk/Contraindication: Risk Factor Score Per Nursin RFS Level Per Nursing on Admit: 4+=Very High TISH CHI DO Aug 09, 2020 12:14
[2020-08-09 12:37] LABS: BASOPHILS % (AUTO) 0 % (0-10); EOSINOPHILS % (AUTO) 0 % (0-10); HEMATOCRIT 36 % (40-54); HEMOGLOBIN 11.2 g/dL (13.3-17.7); LYMPHOCYTES % (AUTO) 8 % (12-44); MEAN CORPUSCULAR HEMOGLOBIN 27 pg (25-34); MEAN CORPUSCULAR HGB CONC 31 g/dL (32-36); MEAN CORPUSCULAR VOLUME 86 fL (80-99); MEAN PLATELET VOLUME 9.7 fL (9.0-12.2); MONOCYTES # (AUTO) 0.8 10^3/uL (0.0-1.0); MONOCYTES % (AUTO) 6 % (0-12); NEUTROPHILS # (AUTO) 10.4 10^3/uL (1.8-7.8); NEUTROPHILS % (AUTO) 83 % (42-75); PLATELET COUNT 409 10^3/uL (130-400); WHITE BLOOD COUNT 12.5 10^3/uL (4.3-11.0)
[2020-08-09 12:46] LABS: ALBUMIN 2.8 GM/DL (3.2-4.5); CHLORIDE 102 MMOL/L (98-107); POTASSIUM 4.1 MMOL/L (3.6-5.0); SODIUM 136 MMOL/L (135-145)
[2020-08-09 12:48] LABS: GLUCOSE 203 MG/DL (70-105); TOTAL PROTEIN 6.4 GM/DL (6.4-8.2)
[2020-08-09 12:49] LABS: CARBON DIOXIDE 24 MMOL/L (21-32)
[2020-08-09 12:50] LABS: BILIRUBIN,TOTAL 0.3 MG/DL (0.1-1.0)
[2020-08-09 12:52] LABS: ALKALINE PHOSPHATASE 70 U/L (40-136); CREATININE SERUM 0.73 MG/DL (0.60-1.30); GFR ESTIMATED > 60
[2020-08-09 12:53] LABS: BUN/CREATININE RATIO 22
[2020-08-09 12:55] LABS: ALANINE AMINOTRANSFERASE 21 U/L (0-55)
[2020-08-09 16:00] VITALS: BP 139/80
[2020-08-09] MEDS: MELATONIN 3 MG TABLET PO SCH (21:54)
[2020-08-10] VITALS: BP 115/61
[2020-08-10] MEDS: RT-ALBUTEROL/IPRATROPIUM 3 ML (DUONEB) VIAL INH SCH ×3 (03:13→10:11)
[2020-08-10 05:39] LABS: BASOPHILS % (AUTO) 0 % (0-10); EOSINOPHILS % (AUTO) 0 % (0-10); HEMATOCRIT 34 % (40-54); HEMOGLOBIN 10.2 g/dL (13.3-17.7); LYMPHOCYTES # (AUTO) 1.7 10^3/uL (1.0-4.0); LYMPHOCYTES % (AUTO) 13 % (12-44); MEAN CORPUSCULAR HEMOGLOBIN 26 pg (25-34); MEAN CORPUSCULAR HGB CONC 30 g/dL (32-36); MEAN CORPUSCULAR VOLUME 87 fL (80-99); MEAN PLATELET VOLUME 9.9 fL (9.0-12.2); MONOCYTES # (AUTO) 0.9 10^3/uL (0.0-1.0); MONOCYTES % (AUTO) 7 % (0-12); NEUTROPHILS # (AUTO) 9.8 10^3/uL (1.8-7.8); NEUTROPHILS % (AUTO) 77 % (42-75); PLATELET COUNT 390 10^3/uL (130-400); WHITE BLOOD COUNT 12.7 10^3/uL (4.3-11.0)
[2020-08-10 05:50] LABS: ALBUMIN 2.5 GM/DL (3.2-4.5); CHLORIDE 102 MMOL/L (98-107); POTASSIUM 4.5 MMOL/L (3.6-5.0); SODIUM 137 MMOL/L (135-145)
[2020-08-10 05:51] LABS: CALCIUM 7.9 MG/DL (8.5-10.1)
[2020-08-10 05:52] LABS: GLUCOSE 195 MG/DL (70-105)
[2020-08-10 05:53] LABS: TOTAL PROTEIN 5.6 GM/DL (6.4-8.2)
[2020-08-10 05:54] LABS: CARBON DIOXIDE 25 MMOL/L (21-32)
[2020-08-10 05:55] LABS: BILIRUBIN,TOTAL 0.3 MG/DL (0.1-1.0)
[2020-08-10 05:56] LABS: ALKALINE PHOSPHATASE 61 U/L (40-136); GFR ESTIMATED > 60
[2020-08-10 05:57] LABS: BUN/CREATININE RATIO 20
[2020-08-10 05:59] LABS: ALANINE AMINOTRANSFERASE 20 U/L (0-55)
--- NOTE | 2020-08-10 06:23 | Pulmonary Progress Note ---
Subjective Time Seen by a Provider: 06:21 Sepsis Event Evaluation Height, Weight, BMI Height: 5'7.00" Weight: 198lbs. 7.7oz. 89.687908iu; 27.00 BMI Method:Stated Focused Exam Time of Focused Exam: 08:30 Exam Exam Vital Signs Date Time Temp Pulse Resp B/P (MAP) Pulse Ox O2 Delivery O2 Flow Rate FiO2 08/10/20 00:00 36.0 79 18 115/61 (79) 95 Room Air 08/09/20 23:04 Room Air 08/09/20 20:53 Nasal Cannula 2.00 08/09/20 19:08 92 Room Air 08/09/20 16:00 36.2 92 20 139/80 (99) 92 Room Air 08/09/20 14:32 Room Air 08/09/20 10:58 94 Room Air 08/09/20 09:00 Nasal Cannula 2.00 08/09/20 08:00 36.0 88 20 120/61 (80) 90 Room Air 08/09/20 06:31 93 Room Air I & O 08/10/20 07:00 Intake Total 2195 ml Output Total 2350 ml Balance -155 ml Height & Weight Height: 5'7.00" Weight: 198lbs. 7.7oz. 89.049178mp; 27.00 BMI Method:Stated General Appearance: No Apparent Distress, WD/WN, Anxious, Chronically ill HEENT: PERRL/EOMI, TMs Normal, Normal ENT Inspection, Pharynx Normal Neck: Full Range of Motion, Normal Inspection, Non Tender, Supple Respiratory: Crackles, Decreased Breath Sounds, Rales, Wheezing Cardiovascular: Regular Rate, Rhythm Capillary Refill: Less Than 3 Seconds Extremity: No Pedal Edema Neurologic/Psychiatric: Alert, Oriented x3, No Motor/Sensory Deficits, Normal Mood/Affect Skin: Warm/Dry Results Lab Laboratory Tests 08/09/20 12:31 08/10/20 05:14 Assessment/Plan Assessment/Plan Left lung mass with post obstructive pneumonia -Pt will need bronchoscopy with EBUS -F/U in my office 08/17 -Pt is scheduled for EBUS 08/19 -Will need PET scan as out pt. -Restart zosyn check PCT, BNP -Repeat CXR Influeza B -Tamiflu -Covid is negative Anemia -Monitor Severe sepsis -Zosyn -MRSA swab is negative -Amaya cultures are pending -IVF SL GI/DVT ppx -Start Lovenox and protonix CABRERA RAMIREZ DO Aug 10, 2020 06:23
[2020-08-10] MEDS ORDERED: PIPERACILLIN/TAZOBACTAM (BULK) 4.5 GM in NS (IVPB) 100 ML IV SCH (06:30)
[2020-08-10] MEDS: ENOXAPARIN 40 MG/0.4 ML (LOVENOX) SYR SC SCH (06:47)
[2020-08-10] MEDS: inSUlin ASPART (NovoLOG) 1 UNIT/0.01 ML (CHARGE PER UNIT) SC SCH ×2 (06:47→11:02)
[2020-08-10 07:52] VITALS: BP 126/81
--- NOTE | 2020-08-10 08:47 | Diagnostic Imaging Report ---
Portable erect AP chest at 8:08. Indication: Shortness of breath The cardiomegaly and the diffuse alveolar/interstitial pulmonary infiltrates involving both lungs seen previously on 08/07/2020 are again evident and not significantly changed. As on the prior exam there is relative sparing of the left apex. The mediastinum is not widened. The osseous structures are intact. The left-sided PICC line is unchanged in position. Impression: Stable chest. There has been no adverse change since the prior exam. Dictated by: Dictated on workstation # [id number]
[2020-08-10] MEDS ORDERED: AMOX-358 PO (09:05)
[2020-08-10] MEDS ORDERED: PRED10TA22 PO (09:05)
--- NOTE | 2020-08-10 09:06 | Discharge Summary ---
Discharge Summary Hospital Course Was the Problem List Reviewed?: Yes Problems/Dx: (1) Severe sepsis Status: Acute (2) Left upper lobe pneumonia Status: Acute Qualifiers: Qualified Codes: J18.9 - Pneumonia, unspecified organism (3) Influenza B Status: Acute (4) Mass of left lung Status: Acute (5) Rheumatoid arthritis Status: Chronic (6) Psoriasis Status: Chronic (7) COPD (chronic obstructive pulmonary disease) Status: Chronic (8) Diabetes Status: Chronic Qualifiers: Qualified Codes: E11.65 - Type 2 diabetes mellitus with hyperglycemia (9) Hypertension Status: Chronic Qualifiers: Qualified Codes: I10 - Essential (primary) hypertension (10) Hyperlipidemia Status: Chronic Hospital Course Date of Admission: Aug 04, 2020 at 16:03 Admission Diagnosis : Family Physician/Provider: Kaya Reyez MD Date of Discharge: 08/10/20 Discharge Diagnosis: Severe sepsis, post obstructive PNA, COPD, lung mass Hospital Course: Hospital course: Pt had a lengthy hospital course, he was admitted for severe sepsis and pneumonia. Pt was placed on broad-spectrum antibiotics and steroids, Dr. Stokes was consulted. Pt was found to have a lung mass on CT scan with post-obstructive pneumonia, he will need a bronchoscopy in one week along with a PET scan and he met criteria for home oxygen and those orders were placed along with home health and he will be maintained on Lasix 20 mg every other day and will be monitored closely in the meantime. Labs and Pending Lab Test: Laboratory Tests 08/09/20 11:08: Glucometer 178H 08/09/20 12:31: White Blood Count 12.5H, Red Blood Count 4.20L, Hemoglobin 11.2L, Hematocrit 36L , Mean Corpuscular Volume 86, Mean Corpuscular Hemoglobin 27, Mean Corpuscular Hemoglobin Concent 31L, Red Cell Distribution Width 17.2H, Platelet Count 409H, Mean Platelet Volume 9.7, Immature Granulocyte % (Auto) 2, Neutrophils (%) (Auto) 83H, Lymphocytes (%) (Auto) 8L, Monocytes (%) (Auto) 6, Eosinophils (%) (Auto) 0, Basophils (%) (Auto) 0, Neutrophils # (Auto) 10.4H, Lymphocytes # (Auto) 1.0, Monocytes # (Auto) 0.8, Eosinophils # (Auto) 0.0, Basophils # (Auto) 0.0, Immature Granulocyte # (Auto) 0.3H, Sodium Level 136, Potassium Level 4.1, Chloride Level 102, Carbon Dioxide Level 24, Anion Gap 10, Blood Urea Nitrogen 16, Creatinine 0.73, Estimat Glomerular Filtration Rate > 60, BUN/Creatinine Ratio 22, Glucose Level 203H, Calcium Level 8.0L, Corrected Calcium 9.0, Total Bilirubin 0.3, Aspartate Amino Transf (AST/SGOT) 16, Alanine Aminotransferase (ALT/SGPT) 21, Alkaline Phosphatase 70, Total Protein 6.4, Albumin 2.8L 08/09/20 17:22: Glucometer 235H 08/09/20 20:25: Glucometer 259H 08/10/20 05:01: Glucometer 203H 08/10/20 05:14: White Blood Count 12.7H, Red Blood Count 3.86L, Hemoglobin 10.2L, Hematocrit 34L , Mean Corpuscular Volume 87, Mean Corpuscular Hemoglobin 26, Mean Corpuscular Hemoglobin Concent 30L, Red Cell Distribution Width 17.3H, Platelet Count 390, Mean Platelet Volume 9.9, Immature Granulocyte % (Auto) 3, Neutrophils (%) (Auto) 77H, Lymphocytes (%) (Auto) 13, Monocytes (%) (Auto) 7, Eosinophils (%) (Auto) 0, Basophils (%) (Auto) 0, Neutrophils # (Auto) 9.8H, Lymphocytes # (Auto) 1.7, Monocytes # (Auto) 0.9, Eosinophils # (Auto) 0.0, Basophils # (Auto) 0.0, Immature Granulocyte # (Auto) 0.3H, Sodium Level 137, Potassium Level 4.5, Chloride Level 102, Carbon Dioxide Level 25, Anion Gap 10, Blood Urea Nitrogen 14, Creatinine 0.70, Estimat Glomerular Filtration Rate > 60, BUN/Creatinine Ratio 20, Glucose Level 195H, Calcium Level 7.9L, Corrected Calcium 9.1, Total Bilirubin 0.3, Aspartate Amino Transf (AST/SGOT) 13, Alanine Aminotransferase (ALT/SGPT) 20, Alkaline Phosphatase 61, B-Type Natriuretic Peptide 717.3H, Total Protein 5.6L, Albumin 2.5L, Procalcitonin 1.43H Microbiology 08/04/20 MRSA Screen - Final, Complete MRSA not isolated 08/04/20 Urine Culture - Final, Complete NO GROWTH 08/04/20 Blood Culture - Final, Complete No growth Home Meds Active Prednisone 10 Mg Tab.ds.pk 10 Mg PO DAILY Take 6 tabs(60mg)daily,decrease by 1 tab(10MG)daily. Augmentin 875-125 Tablet (Amoxicillin/Potassium Clav) 1 Each Tablet 1 Each PO BID Reported Pregabalin 75 Mg Capsule 150 Mg PO BID TAKES 2 (75MG) CAPS Invokana (Canagliflozin) 300 Mg Tablet 300 Mg PO DAILY Methotrexate (Methotrexate Sodium) 2.5 Mg Tablet 17.5 Mg PO MON TAKES 7 (2.5MG) TABS Glipizide 10 Mg Tablet 10 Mg PO BID Albuterol Sulfate 2.5 Mg/3 Ml Vial.neb 2.5 Mg NEB Q4H PRN Lisinopril 20 Mg Tablet 20 Mg PO DAILY Atorvastatin Calcium 40 Mg Tablet 40 Mg PO HS Ventolin Hfa (Albuterol Sulfate) 18 Gm Hfa.aer.ad 2 Puff IH Q4H PRN Assessment/Pt Instructions [facility] [address] Stokes for bronchoscopy Discharge Planning: <30 minutes discharge planning Discharge Instructions Discharge Diet: ADA Diet Discharge Physical Examination Vital Signs Vital Signs Date Time Temp Pulse Resp B/P (MAP) Pulse Ox O2 Delivery O2 Flow Rate FiO2 08/10/20 07:52 36.2 62 20 126/81 (96) 93 Room Air 08/09/20 20:53 2.00 General Appearance: No Apparent Distress, WD/WN, Chronically ill Respiratory: Crackles, Decreased Breath Sounds, Rales, Wheezing Cardiovascular: Regular Rate, Rhythm Neurologic/Psychiatric: Alert, Oriented x3, No Motor/Sensory Deficits, Normal Mood/Affect Allergies: Coded Allergies: celecoxib (Unverified Allergy, Unknown, 12/22/18) UPSET STOMACH naproxen (Unverified Allergy, Unknown, 12/22/18) UPSET STOMACH Discharge Summary Date of Admission Aug 04, 2020 at 16:03 Date of Discharge Discharge Date: Aug 10, 2020 Discharge Diagnosis Assessment: Left lung mass with obstructive PNA Influenza B Anemia likely of cancer s/p severe sepsis DVT PPx Plan: IV abx Supportive care Monitor O2 Nebs 08/09/20: Nebs O2 Abx Monitor closely (1) Severe sepsis Status: Acute Assessment & Plan: on vanc, zosyn, IVF, tamiflu, norepi (2) Left upper lobe pneumonia Status: Acute Assessment & Plan: on vanc and zosyn Qualifiers: Qualified Codes: J18.9 - Pneumonia, unspecified organism (3) Influenza B Status: Acute Assessment & Plan: on tamiflu (4) Mass of left lung Status: Acute Assessment & Plan: plan to f/u after treatment of pna and influenza (5) Rheumatoid arthritis Status: Chronic (6) Psoriasis Status: Chronic (7) COPD (chronic obstructive pulmonary disease) Status: Chronic Assessment & Plan: on 2L NC at night and solumedrol, may consider decreasing solumedrol as he is not in any COPD exacerbation (8) Diabetes Status: Chronic Qualifiers: Qualified Codes: E11.65 - Type 2 diabetes mellitus with hyperglycemia (9) Hypertension Status: Chronic Qualifiers: Qualified Codes: I10 - Essential (primary) hypertension (10) Hyperlipidemia Status: Chronic Clinical Quality Measures DVT/VTE Risk/Contraindication: Risk Factor Score Per Nursin RFS Level Per Nursing on Admit: 4+=Very High TISH CHI DO Aug 10, 2020 09:06
[2020-08-10] MEDS: predniSONE 20 MG TAB PO SCH (09:38)
[2020-08-10] MEDS: PREGABALIN 150 MG (LYRICA) CAPSULE PO SCH (09:38)
--- NOTE | 2020-08-10 10:00 | D/C HH Face to Face Order ---
D/C Face to Face Orders Reconcile Patient Problems Problems Reviewed?: Yes Instructions for Patient Home Health Patient Instructions/FollowUp: [facility] [address] Stokes Monday Physician to follow Patient: [facility] Discharge Diet for Home: No Restrictions Patient Problems: Lung mass PNA Patient Data-Allergies,Ht & Wt Patient Allergies: Coded Allergies: celecoxib (Unverified Allergy, Unknown, 12/22/18) UPSET STOMACH naproxen (Unverified Allergy, Unknown, 12/22/18) UPSET STOMACH Height (Feet): 5 Height (Inches): 7.00 Weight (Pounds): 198 Weight (Ounces): 7.7 Home Health Need/Face to Face Date of Face to Face: Aug 10, 2020 Clinical Findings: Generalized weakness and fatigue, Instability, Muscle weakness, Shortness of breath, Unsteady gait I have seen Pt ywhv-[id number]: Yes Discharged To: Home Diagnosis/Conditions: Lung mass PNA Patient is Homebound due to: Dyana fall risk due to instabilty, Muscle weakness, Shortness of breath/distress Homebound Status Due to the above stated illness, injury or surgical procedure (medical condition or diagnosis) and associated clinical findings, the patient is homebound because of his/her inability to leave home except with aid of a supportive device and/or person AND leaving the home requires a considerable and taxing effort or is medically contraindicated. Pt req the following assistanc: [facility] Nursing Orders Home Health Services Order: Nursing Services, Base Ply Hand-Evaluate & Treat, Physical Therapy-Evaluate & Treat Home Health Infusion Therapy Line Start Date: Aug 05, 2020 Certify Stmt I certify that this patient is under my care and that I, a nurse practitioner or a physician; a liaison inspection laboratory assistant working with me, had a face to face encounter that - meets the physician face to face encounter requirements with this patient as dated. TISH CHI DO Aug 10, 2020 10:00
[2020-08-10] MEDS ORDERED: FURO-125 PO (10:01)
--- NOTE | 2020-08-10 10:09 | NUR ---
pt on RA at start of test. O2 saturation was only 88%. Pt put his house shoes on and desated to 85% on RA. 2L of O2 was then placed on patient and saturation raised to 93% patient requiring 2L at rest and 4L with exertion. Addendum: 08/10/20 at 1011 by GALLITO LAWRENCE RT Amended: Links added.
[2020-08-10] MEDS ORDERED: FUROSEMIDE 40 MG/4 ML INJ (LASIX) ONE (10:10)
[2020-08-10] MEDS ORDERED: FUROSEMIDE 40 MG/4 ML INJ (LASIX) IVP ONE (10:15)
--- NOTE | 2020-08-10 11:13 | NUR ---
Arrangements completed for continued care plans. [facility]. Pt was without clean clothes so obtained clothes from our [employer] for transport home. pt is working on transportation home and awaiting portable tank delivery.
--- NOTE | 2020-08-10 13:00 | NUR ---
PICC REMOVED. SITE BRUISED, BUT CLEAR. RX AND INST AND VERBALIZED UNDERSTANDING.
--- NOTE | 2020-08-10 13:10 | NUR ---
DC'D PER WC WITH [facility].
== END 2020-08-10 13:10 | disposition home health service (06) | DRG 871 ==
LOC: EDUNIT# 10:35 → ER 10:36 → ICU 16:03 → 4TH 08-07 18:40
PROVIDERS: ADMIT Family Medicine; ATTEND Family Medicine
DX: A41.9 Sepsis, unspecified organism (principal); J10.08 Influenza due to other identified influenza virus with other specified pneumonia; J15.9 Unspecified bacterial pneumonia; R91.8 Other nonspecific abnormal finding of lung field; D64.9 Anemia, unspecified; J44.9 Chronic obstructive pulmonary disease, unspecified; E11.9 Type 2 diabetes mellitus without complications; I10 Essential (primary) hypertension; Z20.822 Contact with and (suspected) exposure to COVID-19; M06.9 Rheumatoid arthritis, unspecified; L40.9 Psoriasis, unspecified; E78.00 Pure hypercholesterolemia, unspecified; E78.5 Hyperlipidemia, unspecified; Z87.891 Personal history of nicotine dependence; Z79.2 Long term (current) use of antibiotics; Z79.84 Long term (current) use of oral hypoglycemic drugs; Z79.52 Long term (current) use of systemic steroids; Z88.8 Allergy status to other drugs, medicaments and biological substances
CPT/HCPCS: 36415; 36569; 51702; 71045; 71275; 76937; 80048; 80053; 81000; 82805; 82962; 83605; 83735; 83880; 84100; 84145; 85007; 85025; 85027; 85379; 85610; 85730; 86141; 87040; 87081; 87088; 87635; 87804; 93005; 94640; 94760; 94761

== ENCOUNTER 2020-08-18 05:28 | Outpatient (RCR) | payer MEDICAID ==
[~2020-08-18 05:28] MED LIST changes: +AMOX-358 PO; +CANA300T PO; -FOLI1TAB24 PO; +FOLI1TAB33 PO; +FURO-125 PO; +PRED10TA22 PO; +PREG75CA75 PO
[2020-08-19] MEDS ORDERED: FOLI1TAB33 PO (09:43)
== END 2020-08-18 09:23 | disposition home or self-care (01) ==
LOC: PREOP 05:28
PROVIDERS: ATTEND Internal Medicine Critical Care Medicine
DX: Z01.812 Encounter for preprocedural laboratory examination (principal); R91.8 Other nonspecific abnormal finding of lung field; R05 Cough; Z20.822 Contact with and (suspected) exposure to COVID-19
CPT/HCPCS: 87635

== ENCOUNTER 2020-08-19 07:48 | Day surgery (SDC) | payer MEDICAID ==
[2020-08-19] VITALS (8 sets, daily range): BP systolic 89–128; BP diastolic 51–68
[~2020-08-19] VITALS: Ht 170.2 cm; Wt 82.3 kg
[2020-08-19] MEDS ORDERED: LIDOCAINE PF 2% 5 ML (XYLOCAINE) VIAL INJ ONE (07:49)
[2020-08-19] MEDS ORDERED: LIDOCAINE PF 1% 2 ML VIAL IJ ONE (07:49)
[2020-08-19] MEDS ORDERED: LACTATED RINGERS 1,000 ML IV STA (08:08)
[2020-08-19] MEDS ORDERED: LACTATED RINGERS 1,000 ML IV ONE (08:18)
[2020-08-19] MEDS ORDERED: RT-ALBUTEROL SULF 2.5 MG/3 ML PRE-MIX VIAL ONE (08:51)
[2020-08-19] MEDS ORDERED: GLYCOPYRROLATE 0.2 MG/ML (ROBINUL) 2 ML VIAL ONE (09:11)
[2020-08-19] MEDS ORDERED: proPOfol 200 MG/20 ML (DIPRIVAN) VIAL IV ONE (09:11)
[2020-08-19] MEDS ORDERED: ONDANSETRON 4 MG/2 ML (SDV) Z0FRAN ONE (09:11)
[2020-08-19] MEDS ORDERED: MIDAZOLAM 2 MG/2 ML (VERSED) VIAL ONE (09:11)
[2020-08-19] MEDS ORDERED: fentaNYL INJECTION 100 MCG/2 ML AMP ONE (09:11)
[2020-08-19] MEDS ORDERED: LIDOCAINE PF 2% 5 ML (XYLOCAINE) VIAL ONE (09:11)
[2020-08-19] MEDS ORDERED: NEOSTIGMINE 3 MG/3 ML VIAL ONE (09:12)
[2020-08-19] MEDS ORDERED: ROCURONIUM 10 MG/ML 5 ML SYRINGE IV ONE (09:12)
[2020-08-19] MEDS ORDERED: SUCCINYLCHOLINE INJ 100 MG/5 ML SYR/VIAL ONE (09:35)
[2020-08-19] MEDS ORDERED: PHENYLEPHRINE 100 MCG/ML 10 ML (ANESTHESIA) SYR ONE (09:41)
[2020-08-19] MEDS ORDERED: FOLI1TAB33 PO (09:43)
--- NOTE | 2020-08-19 10:26 | Pulmonary Procedures ---
Pulmonary Procedures Date of Procedure Date of Service: Aug 19, 2020 Bronch Bronchoscopy with Fleuroscopy bilateral wash, RML BAL, RML transbronchial brush x 2 using fleuroscopy. [place] of mainstem deana. EBUS then advanced and bx of station 7 and 4R lymph nodes obtained via direct US guidance. Preop DX: [mediastinal lymphadenopathy PostOP DX: same No endobronchial mass noted. Complications: None Pt was sedated per anesthesia. Bronchoscopy was advanced through the ET tube and an anatomical undertaken down to the segmental bronchi bilaterally. No endobronchial lesions noted. Bronchoscopy with Fleuroscopy bilateral wash, RML BAL, RML transbronchial brush x 2 using fleuroscopy. [place] of mainstem deana. EBUS then advanced and bx of station 7 and 4R lymph nodes obtained via direct US guidance. . Pt tolerated procedure well. No complications noted. CABRERA RAMIREZ DO Aug 19, 2020 10:26
--- NOTE | 2020-08-19 10:27 | Progress Note-Pre Operative ---
Pre-Operative Progress Note H&P Reviewed The H&P was reviewed, patient examined and no changes noted. Date Seen by Provider: Aug 19, 2020 Time Seen by Provider: 10:00 Date H&P Reviewed: Aug 19, 2020 Time H&P Reviewed: 10:00 Pre-Operative Diagnosis: lung mass CABRERA RAMIREZ DO Aug 19, 2020 10:27
--- NOTE | 2020-08-19 10:32 | Anesthesia-General Post-Op ---
General Patient Condition Mental Status/LOC: Same as Preop Cardiovascular: Satisfactory Nausea/Vomiting: Absent Respiratory: Satisfactory Pain: Controlled Complications: Absent Post Op Complications Complications None Follow Up Care/Instructions Patient Instructions None needed. Anesthesia/Patient Condition Patient Condition Patient is doing well, no complaints, stable vital signs, no apparent adverse anesthesia problems. No complications reported per nursing. AZAEL MAHAJAN CRNA Aug 19, 2020 10:32
--- NOTE | 2020-08-19 10:53 | Diagnostic Imaging Report ---
INDICATION: Post bronchoscopy. COMPARISON: 08/10/2019. FINDINGS: Dense consolidated infiltrate in the left lower lobe is again noted. There has been a considerable decrease in the infiltrate in the right lung although diffuse interstitial lung disease remains present with some patchy alveolar infiltrate. Cardiomegaly is again noted. No pneumothorax or pleural effusion. IMPRESSION: Bilateral pneumonia with some decrease in infiltrates since the previous exam. No evidence of pneumothorax. Dictated by: Dictated on workstation # [id number]
--- NOTE | 2020-08-19 13:39 | Diagnostic Imaging Report ---
INDICATION: Fluoroscopy for bronchoscopy. Fluoroscopy was provided for Dr. Stokes during bronchoscopy. 21 seconds of fluoroscopic time was utilized. A single image was obtained. IMPRESSION: Fluoroscopy during bronchoscopy. Dictated by: Dictated on workstation # [id number]
== END 2020-08-19 12:00 | disposition home or self-care (01) ==
LOC: ENDO 07:48
PROVIDERS: ATTEND Internal Medicine Critical Care Medicine
DX: R59.1 Generalized enlarged lymph nodes (principal); I10 Essential (primary) hypertension; I25.10 Atherosclerotic heart disease of native coronary artery without angina pectoris; J45.909 Unspecified asthma, uncomplicated; E11.9 Type 2 diabetes mellitus without complications; Z79.51 Long term (current) use of inhaled steroids; Z79.899 Other long term (current) drug therapy; Z88.5 Allergy status to narcotic agent; Z87.891 Personal history of nicotine dependence
CPT/HCPCS: 71045; 76000; 82962; 87015; 87070; 87101; 87116; 87205; 87206; 88112; 88173; 88305; 88312; 88341; 88342; 88344; 94640

== ENCOUNTER → 2020-08-25 | Outpatient (CLI) | payer MEDICAID ==
--- NOTE | 2020-08-25 14:53 | Diagnostic Imaging Report ---
Indication: Lung masses. Serum blood glucose level time of injection is 140 mg/dL. Patient was administered 14.2 mCi F-18 FDG intravenously in the right antecubital location and PET imaging was performed from the top of skull to mid thighs. Noncontrast CT was also performed for attenuation correction and anatomic correlation. Correlation is made with prior CT chest from 08/04/2020. No prior PET studies available for comparison. There is symmetric activity throughout the brain. Soft tissues of the neck are unremarkable. There are hypermetabolic lymph nodes present in the right axilla with SUV max of 3.6. A hypermetabolic lymph node posterior to the medial left clavicle is noted with SUV max of 4.7. Bulky hypermetabolic adenopathy in the mediastinum is seen. There is right paratracheal marya mass as well as prevascular marya mass as well as hypermetabolic foci in the yanet bilaterally as well as subcarinal region. SUV max of right paratracheal marya mass is 8.8. Prevascular marya mass demonstrates SUV max of 10.4. There is a hyper metabolic lymph node in the left axilla as well. Patient appears to have a small left effusion. There appears to be hyper metabolism involving the right posterior 9th rib. The abdomen and pelvis is unremarkable apart from a destructive lesion involving the sacrum which demonstrates SUV max 6.0. Is also a right groin marya mass with SUV max of 4.9. The lung machado again demonstrate marked interstitial changes throughout the upper and lower lobes. There is parenchymal consolidation in the lingula. IMPRESSION: 1. Bulky hypermetabolic mediastinal and hilar lymphadenopathy. There is a hypermetabolic adenopathy in the axillae bilaterally as well as the right groin. There are osseous lesions involving the sacrum and the right posterior 9th rib. Features are consistent with neoplastic or lymphomatous process. Dictated by: Dictated on workstation # [id number]
== END ==
LOC: RAD 09:00
PROVIDERS: ATTEND Nurse Practitioner Family
DX: R91.8 Other nonspecific abnormal finding of lung field (principal)

== ENCOUNTER 2020-09-03 15:56 | Inpatient (IN) | payer MEDICAID ==
[2020-09-03] VITALS (17 sets, daily range): BP systolic 75–126; BP diastolic 43–80
[~2020-09-03] VITALS: Ht 170.1 cm; Wt 80.2 kg
[2020-09-03] MEDS ORDERED: ONDANSETRON 4 MG (ZOFRAN) ORAL DISSOLVE TAB PO PRN (16:15)
--- NOTE | 2020-09-03 16:43 | NUR ---
EMERALD SHAH admitted to room 414-1, with an admitting diagnosis of COPD EXACERBATION, on 09/03/20 from DIRECT ADMISSION via W/C, accompanied by ADMISSIONS STAFF .EMERALD SHAH introduced to surroundings, call light, bed controls, phone, TV, temperature control, lights, meal times, smoking policy, visitor policy, side rail policy, bathrooms and showers. Patient Rights given to patient in the handbook. EMERALD SHAH verbalizes understanding that [facility] is not responsible for the loss or damage to any personal effects or valuables that are kept in the patients posession during their hospitalization.EMERALD SHAH verbalizes understanding of Interdisciplinary Patient Education. Patient and/or family were informed about the Rapid Response Team and its purpose.
[2020-09-03] MEDS ORDERED: 1/2 NS IV SOLUTION 1,000 ML IV ONE (17:04)
--- NOTE | 2020-09-03 17:04 | NUR ---
RN NOTIFIED OF BLOOD PRESSURE OF 75/44. SIMRAN GHOSH NOTIFIED.
[2020-09-03] MEDS ORDERED: NS IV 1000 ML 1,000 ML IV STA (17:13)
[2020-09-03 17:29] LABS: BASOPHILS # (AUTO) 0.1 10^3/uL (0.0-0.1); BASOPHILS % (AUTO) 0 % (0-10); EOSINOPHILS # (AUTO) 0.1 10^3/uL (0.0-0.3); EOSINOPHILS % (AUTO) 1 % (0-10); HEMATOCRIT 43 % (40-54); HEMOGLOBIN 13.3 g/dL (13.3-17.7); LYMPHOCYTES # (AUTO) 2.1 10^3/uL (1.0-4.0); LYMPHOCYTES % (AUTO) 13 % (12-44); MEAN CORPUSCULAR HEMOGLOBIN 27 pg (25-34); MEAN CORPUSCULAR HGB CONC 31 g/dL (32-36); MEAN CORPUSCULAR VOLUME 88 fL (80-99); MEAN PLATELET VOLUME 9.8 fL (9.0-12.2); MONOCYTES # (AUTO) 1.1 10^3/uL (0.0-1.0); MONOCYTES % (AUTO) 7 % (0-12); NEUTROPHILS # (AUTO) 12.9 10^3/uL (1.8-7.8); NEUTROPHILS % (AUTO) 78 % (42-75); PLATELET COUNT 506 10^3/uL (130-400); WHITE BLOOD COUNT 16.5 10^3/uL (4.3-11.0)
[2020-09-03 17:42] LABS: ALBUMIN 3.5 GM/DL (3.2-4.5); POTASSIUM 4.3 MMOL/L (3.6-5.0)
[2020-09-03 17:43] LABS: CALCIUM 9.2 MG/DL (8.5-10.1)
[2020-09-03 17:45] LABS: TOTAL PROTEIN 7.5 GM/DL (6.4-8.2)
[2020-09-03 17:46] LABS: BILIRUBIN,TOTAL 0.5 MG/DL (0.1-1.0)
[2020-09-03 17:48] LABS: CREATININE SERUM 1.49 MG/DL (0.60-1.30)
[2020-09-03 17:57] LABS: BAND NEUTROPHILS 0 %; BASOPHILS % (MANUAL) 0 %; EOSINOPHILS % (MANUAL) 0 %; LYMPHOCYTES % (MANUAL) 15 %; MONOCYTES % (MANUAL) 5 %; NEUTROPHILS % (MANUAL) 80 %
[2020-09-03 17:58] LABS: ANISOCYTOSIS MODERATE
[2020-09-03] MEDS ORDERED: NS IV ONE (18:30)
--- NOTE | 2020-09-03 18:38 | Diagnostic Imaging Report ---
EXAMINATION: Chest radiograph, portable AP view. DATE: 09/03/2020 6:11 PM INDICATION: 65-year-old male, COPD exacerbation. COMPARISON: August 19, 2020. FINDINGS: Heart size and mediastinal contours are unchanged. There is a convexity in the right paramediastinal location which is similar in appearance to the prior study. There is no identified pneumothorax. There is no large pleural effusion. There are multifocal bilateral interstitial and alveolar opacities with largely unchanged appearance since the comparison study. IMPRESSION: 1. Unchanged multifocal bilateral interstitial and alveolar opacities. 2. Redemonstrated convexity along the right mediastinal margin with similar appearance to the comparison study. Correlating with prior imaging, there is note of extensive mediastinal and hilar adenopathy as well as left axillary adenopathy on prior CT chest of August 04, 2020. The previously noted left upper lobe mass is also more easily appreciated on prior CT. Dictated by: Dictated on workstation # [id number]
--- NOTE | 2020-09-03 18:39 | Diagnostic Imaging Report ---
EXAMINATION: Radiographs of the sacrum and coccyx, 3 views. COMPARISON: Radiographs of the pelvis January 13, 2012. PET/CT August 25, 2020. HISTORY: 65-year-old male, fall. Sacral and coccygeal pain. FINDINGS: There is grade 1 anterolisthesis of L5 on S1. There are bilateral L5 pars interarticularis defects. There is a destructive bone lesion involving the sacrum with soft tissue extension. There is no identified sacral fracture. IMPRESSION: 1. Destructive bone lesion involving the sacrum with soft tissue extension most likely relating to a bone metastasis. Multiple myeloma would be in the differential diagnosis. 2. No identified sacral fracture. 3. Bilateral L5 pars interarticularis defects with grade 1 anterolisthesis of L5 on S1. Dictated by: Dictated on workstation # [id number]
--- NOTE | 2020-09-03 18:40 | History & Physical ---
HPI History of Present Illness: Pt was seen in clinic this afternoon, scheduled for hospital follow-up, but found to have significantly increased work of breathing and wheezing. He stated he was doing okay after being discharged from the hospital earlier in July, but over the last week or so had worsening shortness of breath. He denies fever or cough. He had a bronchoscopy done after discharge and is to see Oncology on Sep 18. He denies chest pain. He has been having severe pain in his very low back into left buttock, to the point that he feels he can't sit down, and he isn't tolerating sitting to use his nebulizer very well. He stated he was still using inhalers, but per pharmacy refills, the last inhaler he got was several months ago, he states he definitely has inhalers, but isn't sure how old they are. Blood pressure in clinic in the 90s, heart rate just over 100, SpO2 adequate on room air, and he did admit occasional dizziness. He received a duoneb treatment in clinic with improvement in wheezing and mild improvement in work of breathing. Source: patient Date seen by provider: Sep 03, 2020 Time Seen by Provider: 15:30 Attending Physician Jose F Reyez MD PCP Jose F Reyez MD Consult Date of Admission Sep 03, 2020 at 16:42 Home Medications Home Medications Reviewed patient Home Medication Reconciliation performed by pharmacy medication reconciliations communications engineering technician and/or nursing. Patients Allergies have been reviewed. Allergies Coded Allergies: celecoxib (Unverified Allergy, Unknown, 12/22/18) UPSET STOMACH naproxen (Unverified Allergy, Unknown, 12/22/18) UPSET STOMACH QLY-Twatat-Xnvxyc Hx Patient Social History Smoking Status: Current Everyday Smoker 2nd Hand Smoke Exposure: Yes Recent Hopitalizations: No Alcohol Use?: No Tobacco type used: Cigarettes Have you traveled recently?: No Immunizations Up To Date Tetanus Booster (TDap): Unknown Date of Pneumonia Vaccine: Jun 01, 2013 Date of Influenza Vaccine: Jun 30, 2020 Past Medical History PMHx: Rhuematoid Arthritis Pulmonary Fibrosis Hypertension Non Insulin Dependent DM Psoriasis HLD Family Medical History Significant Family History: Cancer, Diabetes Family History: Cancer G8 SISTER Family history: Diabetes mellitus G8 SISTER Review of Systems ([facility]) Constitutional: No fever Respiratory: No cough; short of breath, wheezing Cardiovascular: No chest pain Gastrointestinal: No abdominal pain Musculoskeletal: back pain, joint pain Psychiatric/Neurological: Depressed Physical Exam-([facility]) Physical Exam Vital Signs VS - Last 72 Hours, by Label 09/03/20 09/03/20 16:43 18:10 Temp 35.7 Pulse 109 Resp 22 B/P (MAP) 75/44 (54) Pulse Ox 96 O2 Delivery Room Air Room Air Capillary Refill : General Appearance: moderate distress Respiratory: accessory muscle use, rhonchi, wheezing Cardiovascular: no murmur, tachycardia Gastrointestinal: normal bowel sounds, non tender, soft Back: other (mild ttp over lumbosacral spine and left SI area) Extremities: no pedal edema Neurologic/Psychiatric: alert, normal mood/affect; No motor weakness Skin: normal color, warm/dry Assessment/Plan Assessment/Plan Admission Status: Observation (1) COPD exacerbation Status: Acute Assessment & Plan: Possible sepsis, check CXR, CBC, CMP, lactic acid, blood cultures. RT MAT protocol, solumedrol, supplemental O2 as needed. (2) Rheumatoid arthritis Status: Chronic (3) Diabetes Status: Chronic Qualifiers: Qualified Codes: E11.65 - Type 2 diabetes mellitus with hyperglycemia (4) Hypertension Status: Chronic Assessment & Plan: Currently with low blood pressure, hold home meds on admit Qualifiers: Qualified Codes: I10 - Essential (primary) hypertension (5) Hyperlipidemia Status: Chronic (6) Idiopathic pulmonary fibrosis Status: Chronic (7) DVT prophylaxis Status: Acute Assessment & Plan: Enoxaparin if no significant blood count abnormalities JOSE F REYEZ MD Sep 03, 2020 18:40
[2020-09-03] MEDS: methylPREDNISolone 40 MG/ML (Solu-MEDROL) VIAL IV SCH (18:47)
[2020-09-03] MEDS: NS IV 1000 ML 1,000 ML IV SCH ×2 (18:47→19:22)
[2020-09-03] MEDS ORDERED: PIRO20CA2 PO (18:49)
[2020-09-03] MEDS ORDERED: NS IV 1000 ML 1,000 ML IV SCH (19:45)
[2020-09-03] MEDS ORDERED: morphine INJ 4 MG/ML 1 ML (VIAL/SYRINGE) IVP PRN (20:00)
[2020-09-03] MEDS ORDERED: NS IV 500 ML 500 ML IV SCH (21:00)
[2020-09-03] MEDS: ACETAMINOPHEN 500 MG TAB (TYLENOL) PO SCH (22:03)
--- NOTE | 2020-09-03 22:55 | NUR ---
DUONEB Q4 AND Q2PRN; INCENTIVE SPIROMETER QID; INITIATE OXYGEN TO KEEP SATS >90%; RT TO REEVALUATE IN 72 HOURS OR NEEDED. Addendum: 09/03/20 at 2256 by KALYAN SEN RT Amended: Links added.
[2020-09-03] MEDS ORDERED: RT-ALBUTEROL/IPRATROPIUM 3 ML (DUONEB) VIAL INH PRN (23:00)
[2020-09-04] VITALS (9 sets, daily range): BP systolic 94–111; BP diastolic 46–59
[2020-09-04] MEDS: methylPREDNISolone 40 MG/ML (Solu-MEDROL) VIAL IV SCH ×3 (00:01→11:52)
[2020-09-04] MEDS: CEFEPIME INJECTION 1,000 MG in WATER (STERILE) FOR INJECTION 10 ML IV SCH ×5 (00:01→22:57)
[2020-09-04] MEDS: NS IV 1000 ML 1,000 ML IV SCH ×4 (02:29→23:21)
[2020-09-04 02:31] LABS: BASOPHILS % (AUTO) 0 % (0-10); EOSINOPHILS % (AUTO) 0 % (0-10); HEMATOCRIT 38 % (40-54); HEMOGLOBIN 11.8 g/dL (13.3-17.7); LYMPHOCYTES # (AUTO) 0.7 10^3/uL (1.0-4.0); LYMPHOCYTES % (AUTO) 8 % (12-44); MEAN CORPUSCULAR HEMOGLOBIN 27 pg (25-34); MEAN CORPUSCULAR HGB CONC 31 g/dL (32-36); MEAN CORPUSCULAR VOLUME 88 fL (80-99); MEAN PLATELET VOLUME 9.7 fL (9.0-12.2); MONOCYTES # (AUTO) 0.1 10^3/uL (0.0-1.0); MONOCYTES % (AUTO) 1 % (0-12); NEUTROPHILS # (AUTO) 8.5 10^3/uL (1.8-7.8); NEUTROPHILS % (AUTO) 90 % (42-75); PLATELET COUNT 380 10^3/uL (130-400); WHITE BLOOD COUNT 9.5 10^3/uL (4.3-11.0)
[2020-09-04 02:46] LABS: CHLORIDE 106 MMOL/L (98-107); POTASSIUM 4.8 MMOL/L (3.6-5.0); SODIUM 135 MMOL/L (135-145)
[2020-09-04 02:47] LABS: CALCIUM 8.4 MG/DL (8.5-10.1)
[2020-09-04 02:48] LABS: GLUCOSE 221 MG/DL (70-105); TOTAL PROTEIN 6.3 GM/DL (6.4-8.2)
[2020-09-04 02:49] LABS: CARBON DIOXIDE 19 MMOL/L (21-32)
[2020-09-04 02:50] LABS: BILIRUBIN,TOTAL 0.3 MG/DL (0.1-1.0)
[2020-09-04 02:52] LABS: ALKALINE PHOSPHATASE 86 U/L (40-136); CREATININE SERUM 0.96 MG/DL (0.60-1.30); GFR ESTIMATED > 60
[2020-09-04 02:53] LABS: BUN/CREATININE RATIO 28
[2020-09-04 02:55] LABS: ALANINE AMINOTRANSFERASE 12 U/L (0-55)
[2020-09-04] MEDS: ACETAMINOPHEN 500 MG TAB (TYLENOL) PO SCH ×3 (06:07→22:57)
[2020-09-04] MEDS: RT-ALBUTEROL/IPRATROPIUM 3 ML (DUONEB) VIAL INH SCH ×5 (07:45→22:37)
--- NOTE | 2020-09-04 10:05 | Physical Therapy Evaluation ---
PT Evaluation-General Medical Diagnosis Admission Date Sep 03, 2020 at 16:42 Medical Diagnosis: COPD Onset Date: Sep 03, 2020 Therapy Diagnosis Therapy Diagnosis: debility/weakness Height/Weight Height (Feet): 5 Height (Inches): 7.00 Weight (Pounds): 198 Weight (Ounces): 7.7 Precautions Precautions/Isolations: Fall Prevention, Standard Precautions Referral Physician: Dereje Reason for Referral: Evaluation/Treatment Medical History Pertinent Medical History: COPD, DM, Rheumatoid Arthritis, Smoking Additional Medical History pulmonary fibrosis/metastatic cancer to bone Current History direct admit to hospital due to respiratory difficulty Reviewed History: Yes Social History Home: Apartment Current Living Status: Alone Entry Into Home: Elevator Prior Prior Level of Function SCALE: Activities may be completed with or without assistive devices. 7-Oiqlmpmmah-yriawoi completes the activity by him/herself with no assistance from a helper. 5-Set-up or Clean-up Assistance-helper sets up or cleans up; patient completes activity. Boswell assists only prior to or following the activity. 4-Supervision or Touching Assistance-helper provides verbal cues and/or touching/steadying and/or contact guard assistance as patient completes activity. Assistance may be provided throughout the activity or intermittently. 3-Partial/Moderate Assistance-helper does LESS THAN HALF the effort. Boswell lifts, holds or supports trunk or limbs, but provides less than half the effort. 2-Substantial/Maximal Assistance-helper does MORE THAN HALF the effort. Boswell lifts or holds trunk or limbs and provides more than half the effort. 8-Dblmzbniw-twxkho does ALL the effort. Patient does none of the effort to complete the activity. Or, the assistance of 2 or more helpers is required for the patient to complete the activity. If activity was not attempted, code reason: 7-Patient Refused. 9-Not Applicable-not attempted and the patient did not perform the activity before the current illness, exacerbation or injury. 10-Not Attempted due to Environmental Limitations-(lack of equipment, weather restraints, etc.). 88-Not Attempted due to Medical Conditions or Safety Concerns. Bed Mobility: 6 Transfers (B,C,W/C): 6 Gait: 6 Stairs: 9 Indoor Mobility (Ambulation): Independent Stairs: Not Applicalbe Prior Devices Use: Other-see list below Prior Device Use: single point cane PT Evaluation-Current Subjective Patient agrees to PT. No c/o. Objective Patient Orientation: Normal For Age Attachments: IV ROM/Strength ROM Lower Extremities bilateral LE WFL Strength Lower Extremities 4/5 grossly bilateral LE Integumentary/Posture Integumentary refer to nursing notes Bowel Incontinence: No Bladder Incontinence: No Posture WFL Neuromuscular (Tone, Coordination, Reflexes) grossly intact Sensory Vision: Functional Hearing: Functional Transfers Roll Left to Right (QC): 6 Sit to Lying (QC): 6 Lying to Sitting/Side of Bed(Q: 6 Sit to Stand (QC): 4 Chair/Zxv-yi-Vxzql Xfer(QC): 4 Gait Does the Patient Walk?: Yes Mode of Locomotion: Walk Anticipated Mode of Locomotion: Walk Walk 10 feet (QC): 4 Walk 50 ft with 2 Turns(QC): 4 Walk 150 ft (QC): 88 Distance: 100' Gait Assistive Device: Cane Single Point Comments/Gait Description functional gait sequence/patient became dizzy and lightheaded. BP and SAO2 WFL Balance Sitting Static: Normal Sitting Dynamic: Normal Standing Static: Normal Standing Dynamic: Normal Picking up an Object (QC): 6 Assessment/Needs 65 y.o. male, will be seen short term by skilled PT to address functional strength and mobility to ensure safe return to home. Rehab Potential: Fair PT Django Developer Goals [facility] Goals PT Django Developer Goals Time Frame: Sep 12, 2020 Roll Left & Right (QC): 6 Sit to Lying (QC): 6 Lying-Sitting on Side/Bed(QC): 6 Sit to Stand (QC): 6 Chair/Gew-tk-Mbdzg Xfer(QC): 6 Toilet Transfer (QC): 6 Does the Patient Walk: Yes Walk 10 feet (QC): 6 Walk 50ft with 2 Turns (QC): 6 Walk 150 ft (QC): 6 PT Plan Problem List Problem List: Activity Tolerance Treatment/Plan Treatment Plan: Continue Plan of Care Treatment Plan: Education, Functional Activity Mimi, Functional Strength, Gait, Safety, Therapeutic Exercise, Transfers Treatment Duration: Sep 12, 2020 Frequency: 6 times per week Estimated Hrs Per Day: .25 hour per day Patient and/or Family Agrees t: Yes Time/GCodes Time In: 831 Time Out: 845 Total Billed Treatment Time: 14 Total Billed Treatment 1 visit EVMod 14 min HEATHER,ARDEN PT Sep 04, 2020 10:05
[2020-09-04] MEDS ORDERED: FURO20TA4 PO (10:33)
--- NOTE | 2020-09-04 10:35 | NUR ---
SPOKE WITH THE PT AND WENT THRU THE EXT MED HISTORY TO COMPLETE THE MED REC PT WAS ABLE TO TELL ME WHEN/HOW HE TAKES EACH MEDICATION PIROXICAM HAD BEEN ADDED A NEW ORDER TO THE MED REC BY DR. VALLEJO- I LEFT IT ON THE MED REC FOR DISCHARGE PURPOSES EVEN THOUGH PT WASNT TAKING PRIOR TO ADMISSION OTC MEDS: NONE
--- NOTE | 2020-09-04 12:13 | Progress Note ---
Subjective Subjective Date Seen by Provider: Sep 04, 2020 Time Seen by Provider: 08:00 Pt was seen and examined this morning. Aleksander complained of of occasion SOB, for which he has received two breathing treatments, and low back pain that radiates into his left buttock. Pt stated that the pain is controlled on morphine and tylenol but it is still painful to palpation or putting any weight on it, such as sitting or laying on his back. Pt stated that his appetite had returned and was able to walk to and from the bathroom without assistance. Pt is on room air. Pt denied nausea, vomiting, chest pain, urinary symptoms, or issues with bowel movements. X-ray results were discussed with the pt. Review of Systems Pulmonary: Dyspnea Musculoskeletal: back pain Objective Exam Vital Signs Vital Signs - First Documented 09/03/20 09/03/20 16:43 22:41 Temp 35.7 Pulse 109 Resp 22 B/P (MAP) 75/44 (54) Pulse Ox 96 O2 Delivery Room Air FiO2 21 Capillary Refill : Less Than 3 Seconds General Appearance: No Apparent Distress, Chronically ill Neck: Normal Inspection, Non Tender, Supple Respiratory: Chest Non Tender, No Accessory Muscle Use, Crackles Cardiovascular: Regular Rate, Rhythm, No Edema, No Gallop, No Murmur, Normal Peripheral Pulses Gastrointestinal: Normal Bowel Sounds, No Organomegaly, No Pulsatile Mass, Non Tender, Soft Back: Other (coccyx and sacrum pain) Extremity: Normal Capillary Refill, Normal Inspection, Non Tender, No Calf Tenderness, No Pedal Edema Neurologic/Psychiatric: Alert, Oriented x3, Depressed Affect, Motor Weakness Skin: Warm/Dry, Pallor Results Lab Laboratory Tests 09/03/20 17:04: White Blood Count 16.5H, Red Blood Count 4.91, Hemoglobin 13.3, Hematocrit 43, Mean Corpuscular Volume 88, Mean Corpuscular Hemoglobin 27, Mean Corpuscular Hemoglobin Concent 31L, Red Cell Distribution Width 18.6H, Platelet Count 506H, Mean Platelet Volume 9.8, Immature Granulocyte % (Auto) 1, Neutrophils (%) (Auto) 78H, Lymphocytes (%) (Auto) 13, Monocytes (%) (Auto) 7, Eosinophils (%) (Auto) 1, Basophils (%) (Auto) 0, Neutrophils # (Auto) 12.9H, Lymphocytes # (Auto) 2.1, Monocytes # (Auto) 1.1H, Eosinophils # (Auto) 0.1, Basophils # (Auto) 0.1, Immature Granulocyte # (Auto) 0.2H, Neutrophils % (Manual) 80, Lymphocytes % (Manual) 15, Monocytes % (Manual) 5, Eosinophils % (Manual) 0, Basophils % (Manual) 0, Band Neutrophils 0, Anisocytosis MODERATE, Blood Morphology Comment , Sodium Level 136, Potassium Level 4.3, Chloride Level 100, Carbon Dioxide Level 22, Anion Gap 14, Blood Urea Nitrogen 25H, Creatinine 1.49H , Estimat Glomerular Filtration Rate 48, BUN/Creatinine Ratio 17, Glucose Level 155H, Calcium Level 9.2, Corrected Calcium 9.6, Total Bilirubin 0.5, Aspartate Amino Transf (AST/SGOT) 21, Alanine Aminotransferase (ALT/SGPT) 14, Alkaline Phosphatase 101, Total Protein 7.5, Albumin 3.5 09/03/20 17:17: Lactic Acid Level 2.14*H 09/03/20 21:27: Lactic Acid Level 2.31*H 09/04/20 02:15: White Blood Count 9.5, Red Blood Count 4.32, Hemoglobin 11.8L, Hematocrit 38L, Mean Corpuscular Volume 88, Mean Corpuscular Hemoglobin 27, Mean Corpuscular Hemoglobin Concent 31L, Red Cell Distribution Width 17.9H, Platelet Count 380, Mean Platelet Volume 9.7, Immature Granulocyte % (Auto) 1, Neutrophils (%) (Auto) 90H, Lymphocytes (%) (Auto) 8L, Monocytes (%) (Auto) 1, Eosinophils (%) (Auto) 0, Basophils (%) (Auto) 0, Neutrophils # (Auto) 8.5H, Lymphocytes # (Auto) 0.7L, Monocytes # (Auto) 0.1, Eosinophils # (Auto) 0.0, Basophils # (Auto) 0.0, Immature Granulocyte # (Auto) 0.1, Sodium Level 135, Potassium Level 4.8, Chloride Level 106, Carbon Dioxide Level 19L, Anion Gap 10, Blood Urea Nitrogen 27H, Creatinine 0.96, Estimat Glomerular Filtration Rate > 60, BUN/Creatinine Ratio 28, Glucose Level 221H, Calcium Level 8.4L, Corrected Calcium 9.2, Total Bilirubin 0.3, Aspartate Amino Transf (AST/SGOT) 12, Alanine Aminotransferase (ALT/SGPT) 12, Alkaline Phosphatase 86, Total Protein 6.3L, Albumin 3.0L, Lactic Acid Level 1.65 09/04/20 06:51: Lactic Acid Level 1.67 Assessment/Plan Assessment/Plan Admission Dx lower back pain, pneumonia, acute COPD exacerbation Assessment and Plan Assessment: dyspnea pneumonia COPD exacerbation sepsis- values for 09/04: BP of 98/54, 95% O2 sat on room air, WBC count decreased from 16.5 to 9.5, lactic acid decreased from 2.31 to 1.67 left upper lobe mass bone lesion involving sacrum and soft tissue grade 1 anterolisthesis of L5 on S1 Plan:, get an IS continue breathing treatments when needed pain management continue antibiotics change to oral steroids Supervisory-Addendum Brief Verification & Attestation Participated in pt care: history, MDM, physical Personally performed: exam, history Care discussed with: Medical Student Procedures: n/a I personally saw and examined this patient today and agree with documentation by medical student. Patient had severe sepsis secondary to pneumonia on admit which resolved with 30 cc/kg bolus. Today he is much better, continue antibiotics, change to oral prednisone for COPD exacerbation component. 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 Pain is controlled but he is on IV morphine, will add oral medications. BABAR JHA MED STUDENT Sep 04, 2020 12:12 JOSE F VALLEJO MD Sep 04, 2020 14:54
--- NOTE | 2020-09-04 12:27 | NUR ---
Initial Visit by MIRIAN Kaufman. Pt is Douglas. provided active listening. Pt expressed anticipation of being discharged.
--- NOTE | 2020-09-04 13:15 | NUR ---
"RD ASSESSMENT PMHx: RA; HTN; DM; HLD; PT INTERACTION: Pt was awake and pleasant during nutrition assessment. Pt states current appetite is good. Note avg PO intake 100% x3meal, per chart review. Pt states following a regular diet at home, and has no issues with chewing/swallowing food. Pt states recent issues with diarrhea. Note last BM was 2/4, and not currently on bowel regimen per chart review. Pt states recent wt loss of 10#, but was unsure of timeframe. Note unable to determine recent wt hx per chart review. Pt states current DM management is good. Note unable to determine recent HbA1c, per chart review. Est. kcal needs: 2676-4818 kcal | 20-25 kcal/kg Est. Pro needs: 64-80 g Pro | 0.8-1.0 g Pro/kg PES STATEMENT: Given current PO intake, no nutrition diagnosis at this time (NO-1.1). INTERVENTION: Continue with current diet order of CHO 60g/m 1snack diet. Offered diet education on DM management, but pt declined at this time. May attempt to offer again prior to discharge. Will continue to follow and reassess as pt needs, intake, and status change. Elvia HAMILTON, MS RD LD [phone] cell"
[2020-09-04] MEDS: predniSONE 20 MG TAB PO SCH (15:34)
[2020-09-04] MEDS ORDERED: HYDROcodone/APAP 5 MG/325 MG (LORTAB) TAB PO PRN (16:45)
[2020-09-04] MEDS: inSUlin ASPART (NovoLOG) 1 UNIT/0.01 ML (CHARGE PER UNIT) SC SCH ×2 (17:34→21:06)
[2020-09-04] MEDS: PREGABALIN 75 MG (LYRICA) CAP PO SCH (21:06)
[2020-09-05] MEDS: RT-ALBUTEROL/IPRATROPIUM 3 ML (DUONEB) VIAL INH SCH ×6 (01:50→22:59)
[2020-09-05 03:06] VITALS: BP 105/58
[2020-09-05] MEDS: NS IV 1000 ML 1,000 ML IV SCH ×4 (06:08→19:44)
[2020-09-05 07:00] LABS: BASOPHILS % (AUTO) 0 % (0-10); EOSINOPHILS % (AUTO) 0 % (0-10); HEMATOCRIT 34 % (40-54); HEMOGLOBIN 10.5 g/dL (13.3-17.7); LYMPHOCYTES # (AUTO) 1.4 10^3/uL (1.0-4.0); LYMPHOCYTES % (AUTO) 10 % (12-44); MEAN CORPUSCULAR HEMOGLOBIN 27 pg (25-34); MEAN CORPUSCULAR HGB CONC 31 g/dL (32-36); MEAN CORPUSCULAR VOLUME 88 fL (80-99); MEAN PLATELET VOLUME 9.5 fL (9.0-12.2); MONOCYTES # (AUTO) 0.9 10^3/uL (0.0-1.0); MONOCYTES % (AUTO) 6 % (0-12); NEUTROPHILS # (AUTO) 12.3 10^3/uL (1.8-7.8); NEUTROPHILS % (AUTO) 83 % (42-75); PLATELET COUNT 331 10^3/uL (130-400); WHITE BLOOD COUNT 14.7 10^3/uL (4.3-11.0)
[2020-09-05] MEDS: CEFEPIME INJECTION 1,000 MG in WATER (STERILE) FOR INJECTION 10 ML IV SCH ×4 (07:06→23:39)
[2020-09-05] MEDS: ACETAMINOPHEN 500 MG TAB (TYLENOL) PO SCH ×3 (07:06→23:39)
[2020-09-05] MEDS: inSUlin ASPART (NovoLOG) 1 UNIT/0.01 ML (CHARGE PER UNIT) SC SCH ×4 (07:07→20:40)
[2020-09-05 07:09] LABS: CHLORIDE 110 MMOL/L (98-107); POTASSIUM 4.1 MMOL/L (3.6-5.0); SODIUM 139 MMOL/L (135-145)
[2020-09-05 07:10] LABS: CALCIUM 8.4 MG/DL (8.5-10.1)
[2020-09-05 07:11] LABS: GLUCOSE 160 MG/DL (70-105); TOTAL PROTEIN 5.9 GM/DL (6.4-8.2)
[2020-09-05 07:12] LABS: CARBON DIOXIDE 19 MMOL/L (21-32)
[2020-09-05 07:13] LABS: BILIRUBIN,TOTAL 0.2 MG/DL (0.1-1.0)
[2020-09-05 07:14] LABS: ALKALINE PHOSPHATASE 73 U/L (40-136); CREATININE SERUM 0.72 MG/DL (0.60-1.30); GFR ESTIMATED > 60
[2020-09-05 07:15] LABS: BUN/CREATININE RATIO 25
[2020-09-05 07:17] LABS: ALANINE AMINOTRANSFERASE 11 U/L (0-55)
[2020-09-05 08:00] VITALS: BP 95/51
[2020-09-05 08:49] LABS: BAND NEUTROPHILS 2 %; LYMPHOCYTES % (MANUAL) 6 %; MONOCYTES % (MANUAL) 6 %; NEUTROPHILS % (MANUAL) 86 %
[2020-09-05 08:50] LABS: RBC MORPH NORMAL
[2020-09-05] MEDS: PREGABALIN 75 MG (LYRICA) CAP PO SCH ×2 (09:59→20:57)
[2020-09-05] MEDS: predniSONE 20 MG TAB PO SCH (09:59)
--- NOTE | 2020-09-05 09:59 | Physical Therapy Progress Note ---
Therapy Progress Note Pt refused therapy today as he reports that he has been in/out of the bathroom all night and is very fatigued. Pt up ad denise to the restroom per his reports. RASHIDA PADRON PT Sep 05, 2020 09:59
--- NOTE | 2020-09-05 11:01 | Progress Note - Hospitalist ---
Subjective HPI/CC On Admission Date Seen by Provider: Sep 05, 2020 Time Seen by Provider: 10:30 Subjective/Events-last exam Patient notes that his pain is well controlled and that his breathing is improved. Review of Systems Pulmonary: Dyspnea Focused Exam Lactate Level 09/03/20 21:27: Lactic Acid Level 2.31*H 09/04/20 02:15: Lactic Acid Level 1.65 09/04/20 06:51: Lactic Acid Level 1.67 Objective Exam Vital Signs Vital Signs Date Time Temp Pulse Resp B/P (MAP) Pulse Ox O2 Delivery O2 Flow Rate FiO2 09/05/20 10:47 93 Room Air 09/05/20 07:02 68 09/05/20 03:06 36.4 22 105/58 (74) 09/03/20 22:41 21 Capillary Refill : Less Than 3 Seconds General Appearance: No Apparent Distress HEENT: Normal ENT Inspection Neck: Non Tender, Supple Respiratory: Normal Breath Sounds, No Accessory Muscle Use, No Respiratory Distress, Wheezing Cardiovascular: Regular Rate, Rhythm, No Gallop, No Murmur Gastrointestinal: Normal Bowel Sounds, Non Tender, Soft Extremity: No Pedal Edema Results/Procedures Lab Laboratory Tests 09/05/20 06:50 Patient resulted labs reviewed. Assessment/Plan Assessment and Plan Assess & Plan/Chief Complaint dyspnea/exacerbation of COPD pneumonia-on ceftriaxone sepsis-resolved left upper lobe mass bone lesion involving sacrum and soft tissue grade 1 anterolisthesis of L5 on S1 PAYAL KISER MD Sep 05, 2020 11:01
[2020-09-05 12:00] VITALS: BP 115/58
[2020-09-05 15:40] VITALS: BP 125/62
[2020-09-05 20:25] VITALS: BP 107/61
[2020-09-05 23:43] VITALS: BP 128/62
[2020-09-06] MEDS: RT-ALBUTEROL/IPRATROPIUM 3 ML (DUONEB) VIAL INH SCH ×4 (02:41→21:32)
[2020-09-06] MEDS: inSUlin ASPART (NovoLOG) 1 UNIT/0.01 ML (CHARGE PER UNIT) SC SCH ×4 (05:59→20:50)
[2020-09-06 06:25] VITALS: BP 128/62
[2020-09-06] MEDS: CEFEPIME INJECTION 1,000 MG in WATER (STERILE) FOR INJECTION 10 ML IV SCH ×3 (06:44→18:53)
[2020-09-06 07:02] LABS: BASOPHILS % (AUTO) 0 % (0-10); EOSINOPHILS % (AUTO) 0 % (0-10); HEMATOCRIT 36 % (40-54); HEMOGLOBIN 10.9 g/dL (13.3-17.7); LYMPHOCYTES # (AUTO) 2.6 10^3/uL (1.0-4.0); LYMPHOCYTES % (AUTO) 16 % (12-44); MEAN CORPUSCULAR HEMOGLOBIN 27 pg (25-34); MEAN CORPUSCULAR HGB CONC 30 g/dL (32-36); MEAN CORPUSCULAR VOLUME 89 fL (80-99); MEAN PLATELET VOLUME 9.2 fL (9.0-12.2); MONOCYTES # (AUTO) 1.1 10^3/uL (0.0-1.0); MONOCYTES % (AUTO) 7 % (0-12); NEUTROPHILS # (AUTO) 11.7 10^3/uL (1.8-7.8); NEUTROPHILS % (AUTO) 75 % (42-75); PLATELET COUNT 321 10^3/uL (130-400); WHITE BLOOD COUNT 15.5 10^3/uL (4.3-11.0)
[2020-09-06 07:24] LABS: ALANINE AMINOTRANSFERASE 12 U/L (0-55); ALBUMIN 3.1 GM/DL (3.2-4.5); ALKALINE PHOSPHATASE 85 U/L (40-136); BILIRUBIN,TOTAL 0.2 MG/DL (0.1-1.0); BUN/CREATININE RATIO 25; CALCIUM 8.4 MG/DL (8.5-10.1); CARBON DIOXIDE 19 MMOL/L (21-32); CHLORIDE 109 MMOL/L (98-107); CREATININE SERUM 0.68 MG/DL (0.60-1.30); GFR ESTIMATED > 60; GLUCOSE 128 MG/DL (70-105); SODIUM 138 MMOL/L (135-145); TOTAL PROTEIN 6.1 GM/DL (6.4-8.2)
[2020-09-06] MEDS: ACETAMINOPHEN 500 MG TAB (TYLENOL) PO SCH ×3 (07:26→21:55)
[2020-09-06 07:30] VITALS: BP 133/59
[2020-09-06] MEDS: PREGABALIN 75 MG (LYRICA) CAP PO SCH ×2 (08:07→20:49)
[2020-09-06] MEDS: predniSONE 20 MG TAB PO SCH (08:07)
[2020-09-06] MEDS: NS IV 1000 ML 1,000 ML IV SCH ×2 (08:26→10:33)
--- NOTE | 2020-09-06 11:16 | Progress Note - Hospitalist ---
Subjective HPI/CC On Admission Date Seen by Provider: Sep 06, 2020 Time Seen by Provider: 10:50 Subjective/Events-last exam Patient is feeling much better. We discussed that he is eating and drinking well and so we can Hep-Lock his IV fluids. Also has had no cardiac arrhythmias as well so will DC telemetry Review of Systems Pulmonary: Dyspnea Focused Exam Lactate Level 09/03/20 21:27: Lactic Acid Level 2.31*H 09/04/20 02:15: Lactic Acid Level 1.65 09/04/20 06:51: Lactic Acid Level 1.67 Objective Exam Vital Signs Vital Signs Date Time Temp Pulse Resp B/P (MAP) Pulse Ox O2 Delivery O2 Flow Rate FiO2 09/06/20 10:15 92 Nasal Cannula 1.50 09/06/20 07:30 36.0 70 20 133/59 (83) 09/06/20 06:25 21 Capillary Refill : Less Than 3 Seconds General Appearance: No Apparent Distress Neck: Non Tender Respiratory: No Accessory Muscle Use, No Respiratory Distress, Wheezing Cardiovascular: Regular Rate, Rhythm, No Gallop, No Murmur Gastrointestinal: Non Tender, Soft Extremity: Normal Capillary Refill, No Pedal Edema Results/Procedures Lab Laboratory Tests 09/06/20 06:50 Patient resulted labs reviewed. Assessment/Plan Assessment and Plan Assess & Plan/Chief Complaint dyspnea/exacerbation of COPD pneumonia-on ceftriaxone sepsis-resolved left upper lobe mass bone lesion involving sacrum and soft tissue grade 1 anterolisthesis of L5 on S1 We will repeat chest x-ray PAYAL KISER MD Sep 06, 2020 11:16
--- NOTE | 2020-09-06 12:15 | Diagnostic Imaging Report ---
INDICATION: Follow-up pneumonia COMPARISON STUDY: Chest from 3 days ago. FINDINGS: Frontal view of the chest demonstrates bilateral pulmonary infiltrates in the same distribution. These appear little denser than previously which is probably due to differences in technique. No pleural effusions are present. Right superior mediastinum remains prominent. There is also prominence of the aortopulmonary window. IMPRESSION: Allowing for differences of technique there has been little change of the pulmonary infiltrates. Prominence of the mediastinum is stable. Dictated by: Dictated on workstation # [id number]
[2020-09-06 16:00] VITALS: BP 110/59
[2020-09-07 00:14] VITALS: BP 139/61
[2020-09-07] MEDS: CEFEPIME INJECTION 1,000 MG in WATER (STERILE) FOR INJECTION 10 ML IV SCH ×5 (00:19→23:55)
[2020-09-07] MEDS: RT-ALBUTEROL/IPRATROPIUM 3 ML (DUONEB) VIAL INH SCH ×4 (02:58→21:46)
[2020-09-07] MEDS: ACETAMINOPHEN 500 MG TAB (TYLENOL) PO SCH ×3 (05:43→22:08)
[2020-09-07 06:27] LABS: BASOPHILS % (AUTO) 0 % (0-10); EOSINOPHILS # (AUTO) 0.1 10^3/uL (0.0-0.3); EOSINOPHILS % (AUTO) 0 % (0-10); HEMATOCRIT 35 % (40-54); HEMOGLOBIN 10.8 g/dL (13.3-17.7); LYMPHOCYTES # (AUTO) 2.7 10^3/uL (1.0-4.0); LYMPHOCYTES % (AUTO) 22 % (12-44); MEAN CORPUSCULAR HEMOGLOBIN 27 pg (25-34); MEAN CORPUSCULAR HGB CONC 31 g/dL (32-36); MEAN CORPUSCULAR VOLUME 88 fL (80-99); MEAN PLATELET VOLUME 9.9 fL (9.0-12.2); MONOCYTES # (AUTO) 0.9 10^3/uL (0.0-1.0); MONOCYTES % (AUTO) 8 % (0-12); NEUTROPHILS # (AUTO) 8.4 10^3/uL (1.8-7.8); NEUTROPHILS % (AUTO) 68 % (42-75); PLATELET COUNT 284 10^3/uL (130-400); WHITE BLOOD COUNT 12.3 10^3/uL (4.3-11.0)
[2020-09-07] MEDS: inSUlin ASPART (NovoLOG) 1 UNIT/0.01 ML (CHARGE PER UNIT) SC SCH ×4 (06:29→20:26)
[2020-09-07 06:36] LABS: ALBUMIN 2.9 GM/DL (3.2-4.5); CHLORIDE 106 MMOL/L (98-107); POTASSIUM 3.5 MMOL/L (3.6-5.0); SODIUM 139 MMOL/L (135-145)
[2020-09-07 06:37] LABS: CALCIUM 8.4 MG/DL (8.5-10.1)
[2020-09-07 06:38] LABS: GLUCOSE 124 MG/DL (70-105)
[2020-09-07 06:39] LABS: CARBON DIOXIDE 25 MMOL/L (21-32); TOTAL PROTEIN 5.7 GM/DL (6.4-8.2)
[2020-09-07 06:40] LABS: BILIRUBIN,TOTAL 0.2 MG/DL (0.1-1.0)
[2020-09-07 06:42] LABS: ALKALINE PHOSPHATASE 71 U/L (40-136); CREATININE SERUM 0.72 MG/DL (0.60-1.30); GFR ESTIMATED > 60
[2020-09-07 06:43] LABS: BUN/CREATININE RATIO 24
[2020-09-07 06:45] LABS: ALANINE AMINOTRANSFERASE 13 U/L (0-55)
[2020-09-07 08:00] VITALS: BP 97/53
[2020-09-07] MEDS: predniSONE 20 MG TAB PO SCH (08:41)
[2020-09-07] MEDS: PREGABALIN 75 MG (LYRICA) CAP PO SCH ×2 (08:41→20:26)
--- NOTE | 2020-09-07 10:28 | Progress Note - Hospitalist ---
Subjective HPI/CC On Admission Date Seen by Provider: Sep 07, 2020 Time Seen by Provider: 10:00 Subjective/Events-last exam Pt doing a little better Dr. Gray was consulted for bronchogenic cancer and I did consult Dr. Stokes WBC 12.3 Coarseness of the lungs still present Will likely discharge tomorrow Review of Systems General: Fatigue, Malaise Pulmonary: Dyspnea Objective Exam Vital Signs Vital Signs Date Time Temp Pulse Resp B/P (MAP) Pulse Ox O2 Delivery O2 Flow Rate FiO2 09/08/20 01:38 91 Room Air 09/07/20 23:55 36.6 78 20 100/54 (69) 09/07/20 10:30 0.00 09/06/20 06:25 21 Capillary Refill : Less Than 3 Seconds General Appearance: No Apparent Distress, WD/WN, Chronically ill Respiratory: No Accessory Muscle Use, No Respiratory Distress, Crackles, Decreased Breath Sounds, Rales, Wheezing Cardiovascular: Regular Rate, Rhythm Neurologic/Psychiatric: Alert, Oriented x3, No Motor/Sensory Deficits, Normal Mood/Affect Results/Procedures Lab Laboratory Tests 09/08/20 05:34 Patient resulted labs reviewed. Assessment/Plan Assessment and Plan Assess & Plan/Chief Complaint Assessment: PNA AECOPD Lung cancer Hypoxia Plan: O2 Nebs Abx TISH CHI DO Sep 07, 2020 10:28
--- NOTE | 2020-09-07 11:03 | Pulmonary Consultation ---
History of Present Illness History of Present Illness Date of Admission Allergies and Home Medications Allergies Coded Allergies: celecoxib (Unverified Allergy, Unknown, 12/22/18) UPSET STOMACH naproxen (Unverified Allergy, Unknown, 12/22/18) UPSET STOMACH Home Medications Albuterol Sulfate 18 Gm Hfa.aer.ad, 2 PUFF IH Q4H PRN for SHORTNESS OF BREATH, (Reported) Albuterol Sulfate 2.5 Mg/3 Ml Vial.neb, 2.5 MG NEB Q4H PRN for SHORTNESS OF BREATH, (Reported) Atorvastatin Calcium 40 Mg Tablet, 40 MG PO HS, (Reported) Canagliflozin 300 Mg Tablet, 300 MG PO DAILY, (Reported) Folic Acid 1 Mg Tablet, 1 MG PO DAILY, (Reported) Furosemide 20 Mg Tablet, 20 MG PO Q48H, (Reported) Glipizide 10 Mg Tablet, 10 MG PO BID, (Reported) Methotrexate Sodium 2.5 Mg Tablet, 17.5 MG PO TUE, (Reported) TAKES 7 (2.5MG) TABS Piroxicam 20 Mg Capsule, 20 MG PO DAILY, (Reported) Pregabalin 75 Mg Capsule, 150 MG PO BID, (Reported) TAKES 2 (75MG) CAPS Past Yliuhbn-Coudcx-Gfwfyq Hx Patient Social History Smoking Status: Current Everyday Smoker Type Used: Cigarettes Former Smoker, Quit: Jul 31, 2020 2nd Hand Smoke Exposure: Yes Recent Hopitalizations: No Have you traveled recently?: No Alcohol Use?: No Immunizations Up To Date Tetanus Booster (TDap): Unknown Date of Pneumonia Vaccine: Jun 01, 2013 Date of Influenza Vaccine: Jun 30, 2020 Seasonal Allergies Seasonal Allergies: No Past Medical History Surgeries: Yes (COLONOSCOPY/POLYPECTOMY) Respiratory: Yes (HOME O2 AT 2L/NC) Pneumonia, COPD Currently Using CPAP: No Currently Using BIPAP: No Cardiac: Yes High Cholesterol, Hypertension Neurological: No Reproductive Disorders: No Genitourinary: No Gastrointestinal: No Musculoskeletal: Yes Rheumatoid Arthritis Endocrine: Yes (TYPE 2 DIABETES) Diabetes, 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 7.7oz. [id number]; 27.71 BMI Method:Stated Exam Exam Vital Signs Date Time Temp Pulse Resp B/P (MAP) Pulse Ox O2 Delivery O2 Flow Rate FiO2 09/07/20 08:00 Room Air 09/07/20 02:58 91 Room Air 09/07/20 00:14 36.4 78 20 139/61 (87) 98 Room Air 09/06/20 21:32 89 Room Air 09/06/20 20:50 93 Room Air 09/06/20 17:17 92 Nasal Cannula 2.00 09/06/20 16:00 36.5 99 20 110/59 (76) 93 Room Air I & O 09/07/20 07:00 Intake Total 3180 ml Output Total 4350 ml Balance -1170 ml Height & Weight Height: 5'7.00" Weight: 198lbs. 7.7oz. 89.343047gx; 27.71 BMI Method:Stated General Appearance: No Apparent Distress HEENT: Normal ENT Inspection Neck: Non Tender Respiratory: No Accessory Muscle Use, No Respiratory Distress, Wheezing Cardiovascular: Regular Rate, Rhythm, No Gallop, No Murmur Gastrointestinal: normal bowel sounds, non tender, soft Extremity: Normal Capillary Refill, No Pedal Edema Neurologic/Psychiatric: Alert, Oriented x3, Depressed Affect, Motor Weakness Skin: Warm/Dry, Pallor Results Lab Laboratory Tests 09/06/20 06:50 09/07/20 05:36 Assessment/Plan Assessment/Plan COPDAE -Prednisone -Duoneb txs Pneumonia -Currently on Cefepime ARNAUD Large cell neuroendocrine carninoma s/p bronchoscopy -Follows with Oncology Sacral bone and soft tissue lesion- probably mets CABRERA RAMIREZ DO Sep 07, 2020 11:03
--- NOTE | 2020-09-07 11:24 | Physical Therapy Daily Note ---
PT Daily Note-Current Subjective Patient agrees to PT. He reports he is up independently in room. Mental Status Patient Orientation: Normal For Age Transfers SCALE: Activities may be completed with or without assistive devices. 2-Advpqikxyt-vnotgfv completes the activity by him/herself with no assistance from a helper. 5-Set-up or Clean-up Assistance-helper sets up or cleans up; patient completes activity. [place] assists only prior to or following the activity. 4-Supervision or Touching Assistance-helper provides verbal cues and/or touching/steadying and/or contact guard assistance as patient completes activity. Assistance may be provided throughout the activity or intermittently. 3-Partial/Moderate Assistance-helper does LESS THAN HALF the effort. [place] lifts, holds or supports trunk or limbs, but provides less than half the effort. 2-Substantial/Maximal Assistance-helper does MORE THAN HALF the effort. [place] lifts or holds trunk or limbs and provides more than half the effort. 4-Uvibistax-jevzvj does ALL the effort. Patient does none of the effort to complete the activity. Or, the assistance of 2 or more helpers is required for the patient to complete the activity. If activity was not attempted, code reason: 7-Patient Refused. 9-Not Applicable-not attempted and the patient did not perform the activity before the current illness, exacerbation or injury. 10-Not Attempted due to Environmental Limitations-(lack of equipment, weather restraints, etc.). 88-Not Attempted due to Medical Conditions or Safety Concerns. Sit to Lying (QC): 6 Lying to Sitting/Side of Bed(Q: 6 Sit to Stand (QC): 6 Chair/Nlh-qh-Mbxxl Xfer(QC): 6 Gait Training Does the Patient Walk?: Yes Distance: 250' Walk 10 feet (QC): 6 Walk 50 ft with 2 Turns(QC): 6 Walk 150 ft (QC): 6 Gait Assistive Device: Cane Single Point safe and functional with no deviation Assessment Patient currently at independent PLOF safely. PT to dismiss patient from services. Physician notified. PT Sample Coordinator Goals Fdc Goals PT Sample Coordinator Goals Time Frame: Sep 12, 2020 Roll Left & Right (QC): 6 Sit to Lying (QC): 6 Lying-Sitting on Side/Bed(QC): 6 Sit to Stand (QC): 6 Chair/Mst-le-Hpour Xfer(QC): 6 Toilet Transfer (QC): 6 Does the Patient Walk: Yes Walk 10 feet (QC): 6 Walk 50ft with 2 Turns (QC): 6 Walk 150 ft (QC): 6 PT Plan Treatment/Plan Treatment Plan: Discontinue PT, goals met Treatment Plan: Education, Functional Activity Mimi, Functional Strength, Gait, Safety, Therapeutic Exercise, Transfers Treatment Duration: Sep 12, 2020 Frequency: 6 times per week Estimated Hrs Per Day: .25 hour per day Patient and/or Family Agrees t: Yes Time/GCodes Time In: 1010 Time Out: 1023 Total Billed Treatment Time: 13 Total Billed Treatment 1 visit FA 13 min ARDEN ROMERO PT Sep 07, 2020 11:24
--- NOTE | 2020-09-07 13:18 | Oncology Consultation ---
Visit Information Visit Information Date of Admission Sep 05, 2020 at 12:41 Attending Physician Alysia Hernandez MD Admitting Physician Kaya Reyez MD Chief Complaint Neuroendocrine large cell lung cancer. Admitted for COPD exacerbation, sepsis and pain control Interval History Mr. 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 He was admitted on the 09/05/2020 for the increasing SOB, sepsis and pain control. He was treated with antibiotics and pain pills and he is feeling much better. The plan is to discharge him tomorrow. We are called for consultation and follow up of his cancer. I consulted the patient on: 09/07/20 13:12 Time Seen by Provider: 13:12 Review of Systems Constitutional: malaise Respiratory: dyspnea on exertion, short of breath Cardiovascular: no symptoms reported Gastrointestinal: no symptoms reported Musculoskeletal: muscle stiffness Psychiatric/Neurological: No Symptoms Reported Health Status Allergies Coded Allergies: celecoxib (Unverified Allergy, Unknown, 12/22/18) UPSET STOMACH naproxen (Unverified Allergy, Unknown, 12/22/18) UPSET STOMACH Home Medications Albuterol Sulfate (Ventolin Hfa) 18 Gm Hfa.aer.ad, 2 PUFF IH Q4H PRN for SHORTNESS OF BREATH, (Reported) Albuterol Sulfate (Albuterol Sulfate) 2.5 Mg/3 Ml Vial.neb, 2.5 MG NEB Q4H PRN for SHORTNESS OF BREATH, (Reported) Atorvastatin Calcium (Atorvastatin Calcium) 40 Mg Tablet, 40 MG PO HS, (Repor carlos alberto) Canagliflozin (Invokana) 300 Mg Tablet, 300 MG PO DAILY, (Reported) Folic Acid (Folic Acid) 1 Mg Tablet, 1 MG PO DAILY, (Reported) Furosemide (Furosemide) 20 Mg Tablet, 20 MG PO Q48H, (Reported) Glipizide (Glipizide) 10 Mg Tablet, 10 MG PO BID, (Reported) Methotrexate Sodium (Methotrexate) 2.5 Mg Tablet, 17.5 MG PO TUE, (Reported) TAKES 7 (2.5MG) TABS Piroxicam (Piroxicam) 20 Mg Capsule, 20 MG PO DAILY, (Reported) Pregabalin (Pregabalin) 75 Mg Capsule, 150 MG PO BID, (Reported) TAKES 2 (75MG) CAPS IAF-Mrmytk-Ydabms Hx Patient Social History Smoking Status: Current Everyday Smoker Type Used: Cigarettes 2nd Hand Smoke Exposure: Yes Recent Hopitalizations: No Alcohol Use?: No Have you traveled recently?: No Immunizations Up To Date Tetanus Booster (TDap): Unknown Date of Pneumonia Vaccine: Jun 01, 2013 Date of Influenza Vaccine: Jun 30, 2020 Family Medical History Significant Family History: Cancer, Diabetes Family History: Cancer G8 SISTER Family history: Diabetes mellitus G8 SISTER Physical Exam Vital Signs Vital Signs - First Documented 09/03/20 09/03/20 09/06/20 16:43 22:41 07:30 Temp 35.7 Pulse 109 Resp 22 B/P (MAP) 75/44 (54) Pulse Ox 96 O2 Delivery Room Air O2 Flow Rate 1.00 FiO2 21 Capillary Refill : Less Than 3 Seconds Height, Weight, BMI Height: 5'7.00" Weight: 198lbs. 7.7oz. 89.964956mk; 27.71 BMI Method:Stated General Appearance: No Apparent Distress HEENT: PERRL/EOMI Neck: Non Tender, Supple Respiratory: No Accessory Muscle Use, No Respiratory Distress Cardiovascular: Regular Rate, Rhythm Gastrointestinal: Non Tender, Soft Extremity: Non Tender, No Calf Tenderness, No Pedal Edema Neurologic/Psychiatric: Alert, Oriented x3 Data Review Labs Laboratory Tests 09/07/20 05:36 Laboratory Tests 09/04/20 16:31: Glucometer 245H 09/04/20 20:57: Glucometer 265H 09/05/20 06:50: Glucometer 151H, White Blood Count 14.7H, Red Blood Count 3.85L, Hemoglobin 10.5L, Hematocrit 34L, Mean Corpuscular Hemoglobin Concent 31L, Red Cell Distribution Width 17.9H, Neutrophils (%) (Auto) 83H, Lymphocytes (%) (Auto) 10L , Neutrophils # (Auto) 12.3H, Immature Granulocyte # (Auto) 0.2H, Chloride Level 110H, Carbon Dioxide Level 19L, Glucose Level 160H, Calcium Level 8.4L, Total Protein 5.9L, Albumin 3.0L 09/05/20 11:40: Glucometer 197H 09/05/20 15:43: Glucometer 213H 09/05/20 20:35: Glucometer 174H 09/06/20 05:46: Glucometer 135H 09/06/20 06:50: White Blood Count 15.5H, Red Blood Count 4.06L, Hemoglobin 10.9L, Hematocrit 36L , Mean Corpuscular Hemoglobin Concent 30L, Red Cell Distribution Width 18.1H, Neutrophils # (Auto) 11.7H, Monocytes # (Auto) 1.1H, Immature Granulocyte # (Auto) 0.2H, Chloride Level 109H, Carbon Dioxide Level 19L, Glucose Level 128H, Calcium Level 8.4L, Total Protein 6.1L, Albumin 3.1L 09/06/20 10:35: Glucometer 136H 09/06/20 15:57: Glucometer 242H 09/06/20 20:09: Glucometer 182H 09/07/20 05:36: White Blood Count 12.3H, Red Blood Count 3.97L, Hemoglobin 10.8L, Hematocrit 35L , Mean Corpuscular Hemoglobin Concent 31L, Red Cell Distribution Width 18.2H, Neutrophils # (Auto) 8.4H, Immature Granulocyte # (Auto) 0.2H, Potassium Level 3.5L, Glucose Level 124H, Calcium Level 8.4L, Total Protein 5.7L, Albumin 2.9L 09/07/20 05:37: Glucometer 134H 09/07/20 11:14: Glucometer 164H Impression & Plan Impression & Plan IMP: 1. COPD exacerbation/sepsis on antibiotics and steroid, improved significantly. 2. 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 3. Cardiac arrhythmia, improved/resolved. Plan: 1. I have sent more biological tumor marker today for possible targeted therapy for his cancer. I will see him at the cancer center on 09/14/2020 to discuss the results and treatment options. 2. Agree with your current treatment for his SOB and pain control. There is no indication for the pain control at this point. 3. He can be discharged from oncology point view. I have given him appointment card to see me on 09/14/2020 at the cancer center. Thank you for consultation. HARRY GARCIA MD Sep 07, 2020 13:18
--- NOTE | 2020-09-07 15:07 | NUR ---
CM/SS: Visited with pt as per plan and services at time of discharge. Plan: Pt is from home and lives at [facility]. [facility] service will be resumed. Summary: Pt is in bed at the time of the visit. Pt reports that he is from home and that he will return there. Pt lives alone. Pt reports he has Stage four Cancer and that he was in alot of pain at the time of his admission. Pt reports seeing the Cancer Center for his treatment, pt also reports having follow up appointments with the cancer center and the cards as a reminder. Pt thinks he has home care before and that he also had home oxygen. Discussed resuming home care and getting him a portable oxygen tank for him to go home, put is ok with that. Pt does report that he has a ride home. Pt seems eager to return home. Pt thanks this worker for following up with him.
--- NOTE | 2020-09-07 15:28 | NUR ---
CM/SS: Telephone Call to [facility] (Rashida) [phone] - verifying that the pt has been on their services previously - they currently have pt on hold. They are informed that pt will be discharged to home on tomorrow. They will plan to restart pt's home care and requested new orders to do so. This worker will follow up.
[2020-09-07 16:30] VITALS: BP 120/69
[2020-09-07 23:55] VITALS: BP 100/54
[2020-09-08] MEDS: RT-ALBUTEROL/IPRATROPIUM 3 ML (DUONEB) VIAL INH SCH ×2 (01:37→09:28)
[2020-09-08 05:56] LABS: BASOPHILS % (AUTO) 0 % (0-10); EOSINOPHILS # (AUTO) 0.1 10^3/uL (0.0-0.3); EOSINOPHILS % (AUTO) 1 % (0-10); HEMATOCRIT 36 % (40-54); HEMOGLOBIN 11.2 g/dL (13.3-17.7); LYMPHOCYTES # (AUTO) 3.2 10^3/uL (1.0-4.0); LYMPHOCYTES % (AUTO) 25 % (12-44); MEAN CORPUSCULAR HEMOGLOBIN 27 pg (25-34); MEAN CORPUSCULAR HGB CONC 31 g/dL (32-36); MEAN CORPUSCULAR VOLUME 88 fL (80-99); MEAN PLATELET VOLUME 10.1 fL (9.0-12.2); MONOCYTES % (AUTO) 8 % (0-12); NEUTROPHILS # (AUTO) 8.1 10^3/uL (1.8-7.8); NEUTROPHILS % (AUTO) 65 % (42-75); PLATELET COUNT 265 10^3/uL (130-400); WHITE BLOOD COUNT 12.5 10^3/uL (4.3-11.0)
[2020-09-08 06:05] LABS: ALBUMIN 3.1 GM/DL (3.2-4.5)
[2020-09-08 06:06] LABS: CHLORIDE 104 MMOL/L (98-107); SODIUM 142 MMOL/L (135-145)
[2020-09-08 06:07] LABS: CALCIUM 8.6 MG/DL (8.5-10.1)
[2020-09-08 06:08] LABS: GLUCOSE 123 MG/DL (70-105); TOTAL PROTEIN 5.7 GM/DL (6.4-8.2)
[2020-09-08 06:09] LABS: CARBON DIOXIDE 28 MMOL/L (21-32)
[2020-09-08 06:10] LABS: BILIRUBIN,TOTAL 0.3 MG/DL (0.1-1.0)
--- NOTE | 2020-09-08 06:10 | Pulmonary Progress Note ---
Subjective Time Seen by a Provider: 06:09 Sepsis Event Evaluation Height, Weight, BMI Height: 5'7.00" Weight: 198lbs. 7.7oz. 89.637867ar; 27.71 BMI Method:Stated Exam Exam Vital Signs Date Time Temp Pulse Resp B/P (MAP) Pulse Ox O2 Delivery O2 Flow Rate FiO2 09/08/20 01:38 91 Room Air 09/07/20 23:55 36.6 78 20 100/54 (69) 91 Room Air 09/07/20 21:47 94 Room Air 09/07/20 20:30 Room Air 09/07/20 16:30 36.6 88 20 120/69 (86) 93 Room Air 09/07/20 14:34 94 Room Air 09/07/20 10:30 93 Room Air 0.00 09/07/20 08:00 36.0 89 18 97/53 (68) 92 Room Air 09/07/20 08:00 Room Air I & O 09/08/20 07:00 Intake Total 2270 ml Output Total 2950 ml Balance -680 ml Height & Weight Height: 5'7.00" Weight: 198lbs. 7.7oz. 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
[2020-09-08 06:11] LABS: ALKALINE PHOSPHATASE 90 U/L (40-136)
[2020-09-08 06:12] LABS: CREATININE SERUM 0.76 MG/DL (0.60-1.30); GFR ESTIMATED > 60
[2020-09-08 06:13] LABS: BUN/CREATININE RATIO 24
[2020-09-08 06:15] LABS: ALANINE AMINOTRANSFERASE 15 U/L (0-55)
[2020-09-08] MEDS: inSUlin ASPART (NovoLOG) 1 UNIT/0.01 ML (CHARGE PER UNIT) SC SCH ×2 (06:24→12:20)
[2020-09-08] MEDS: CEFEPIME INJECTION 1,000 MG in WATER (STERILE) FOR INJECTION 10 ML IV SCH ×2 (06:26→11:19)
[2020-09-08] MEDS: ACETAMINOPHEN 500 MG TAB (TYLENOL) PO SCH (06:26)
[2020-09-08 08:00] VITALS: BP 128/60
[2020-09-08] MEDS: predniSONE 20 MG TAB PO SCH (08:57)
[2020-09-08] MEDS: PREGABALIN 75 MG (LYRICA) CAP PO SCH (08:57)
[2020-09-08] MEDS ORDERED: PRED10TA22 PO (10:53)
[2020-09-08] MEDS ORDERED: CEFD300C3 PO (10:53)
--- NOTE | 2020-09-08 10:54 | D/C HH Face to Face Order ---
D/C Face to Face Orders Reconcile Patient Problems Problems Reviewed?: Yes Instructions for Patient Via [facility], Patient Instructions/FollowUp: [facility] [address] Gray as scheduled Physician to follow Patient: [facility] Discharge Diet for Home: No Restrictions Patient Problems: PNA Lung cancer Patient Data-Allergies,Ht & Wt Patient Allergies: Coded Allergies: celecoxib (Unverified Allergy, Unknown, 12/22/18) UPSET STOMACH naproxen (Unverified Allergy, Unknown, 12/22/18) UPSET STOMACH Height (Feet): 5 Height (Inches): 7.00 Weight (Pounds): 198 Weight (Ounces): 7.7 Home Health Need/Face to Face Date of Face to Face: Sep 08, 2020 Clinical Findings: Generalized weakness and fatigue, Instability, Muscle weakness, Shortness of breath, Unsteady gait I have seen Pt [id number]: Yes Discharged To: Home Diagnosis/Conditions: Lung cancer PNA Patient is Homebound due to: Dyana fall risk due to instabilty, Shortness of breath/distress Homebound Status Due to the above stated illness, injury or surgical procedure (medical condition or diagnosis) and associated clinical findings, the patient is homebound because of his/her inability to leave home except with aid of a supportive device and/or person AND leaving the home requires a considerable and taxing effort or is medically contraindicated. Pt req the following assistanc: [facility] Nursing Orders Home Health Services Order: Nursing Services, Alley Cleaner-Evaluate & Treat, Physical Therapy-Evaluate & Treat Home Health Infusion Therapy Line Start Date: Sep 03, 2020 Certify Stmt I certify that this patient is under my care and that I, a nurse practitioner or a physician; a recruitment assistant working with me, had a face to face encounter that - meets the physician face to face encounter requirements with this patient as dated. TISH CHI DO Sep 08, 2020 10:54
--- NOTE | 2020-09-08 10:55 | Discharge Summary ---
Discharge Summary Hospital Course Was the Problem List Reviewed?: Yes Problems/Dx: (1) Severe sepsis Status: Acute (2) Left upper lobe pneumonia Status: Acute (3) Mass of left lung Status: Acute Hospital Course Date of Admission: Sep 05, 2020 at 12:41 Admission Diagnosis : Family Physician/Provider: Kaya Reyez MD Date of Discharge: 09/08/20 Discharge Diagnosis: severe sepsis, PNA, lung cancer, COPD, O2 dependence Hospital Course: Hospital Course: Pt had an uneventful hospital course, he was admitted for exac erbation of COPD and pneumonia. Lung Cancer history and oxygen dependency required close monitoring. Pt was ultimately discharged in improved condition on antibiotics for an additional six days of Omnicef twice daily transition from Cefepime. Dr. Stokes was in agreement with the plan and he will have close follow up with the cancer center also. Labs and Pending Lab Test: Laboratory Tests 09/07/20 11:14: Glucometer 164H 09/07/20 15:43: Glucometer 268H 09/07/20 20:21: Glucometer 174H 09/08/20 05:34: White Blood Count 12.5H, Red Blood Count 4.10L, Hemoglobin 11.2L, Hematocrit 36L , Mean Corpuscular Volume 88, Mean Corpuscular Hemoglobin 27, Mean Corpuscular H emoglobin Concent 31L, Red Cell Distribution Width 18.5H, Platelet Count 265, Mean Platelet Volume 10.1, Immature Granulocyte % (Auto) 1, Neutrophils (%) (Auto) 65, Lymphocytes (%) (Auto) 25, Monocytes (%) (Auto) 8, Eosinophils (%) (Auto) 1, Basophils (%) (Auto) 0, Neutrophils # (Auto) 8.1H, Lymphocytes # (Auto) 3.2, Monocytes # (Auto) 1.0, Eosinophils # (Auto) 0.1, Basophils # (Auto) 0.0, Immature Granulocyte # (Auto) 0.1, Sodium Level 142, Potassium Level 4.0, Chloride Level 104, Carbon Dioxide Level 28, Anion Gap 10, Blood Urea Nitrogen 18, Creatinine 0.76, Estimat Glomerular Filtration Rate > 60, BUN/Creatinine Ratio 24, Glucose Level 123H, Calcium Level 8.6, Corrected Calcium 9.3, Total Bilirubin 0.3, Aspartate Amino Transf (AST/SGOT) 14, Alanine Aminotransferase (ALT/SGPT) 15, Alkaline Phosphatase 90, Total Protein 5.7L, Albumin 3.1L Microbiology 09/03/20 Blood Culture - Preliminary, Resulted No growth Home Meds Active Cefdinir 300 Mg Capsule 300 Mg PO BID Prednisone 10 Mg Tab.ds.pk 10 Mg PO DAILY Take 6 tabs(60mg)daily,decrease by 1 tab(10MG)daily. Reported Furosemide 20 Mg Tablet 20 Mg PO Q48H Piroxicam 20 Mg Capsule 20 Mg PO DAILY Folic Acid 1 Mg Tablet 1 Mg PO DAILY Pregabalin 75 Mg Capsule 150 Mg PO BID TAKES 2 (75MG) CAPS Invokana (Canagliflozin) 300 Mg Tablet 300 Mg PO DAILY Methotrexate (Methotrexate Sodium) 2.5 Mg Tablet 17.5 Mg PO TUE TAKES 7 (2.5MG) TABS Glipizide 10 Mg Tablet 10 Mg PO BID Albuterol Sulfate 2.5 Mg/3 Ml Vial.neb 2.5 Mg NEB Q4H PRN Atorvastatin Calcium 40 Mg Tablet 40 Mg PO HS Ventolin Hfa (Albuterol Sulfate) 18 Gm Hfa.aer.ad 2 Puff IH Q4H PRN Assessment/Pt Instructions [facility] 1 week Discharge Planning: <30 minutes discharge planning Discharge Instructions Discharge Diet: No Restrictions Discharge Physical Examination Vital Signs Vital Signs Date Time Temp Pulse Resp B/P (MAP) Pulse Ox O2 Delivery O2 Flow Rate FiO2 09/08/20 09:28 91 Room Air 09/08/20 08:00 0.00 09/08/20 08:00 36.4 83 18 128/60 (82) 09/06/20 06:25 21 General Appearance: No Apparent Distress, WD/WN Respiratory: Crackles, Wheezing Cardiovascular: Regular Rate, Rhythm Neurologic/Psychiatric: Alert, Oriented x3, No Motor/Sensory Deficits, Normal Mood/Affect Allergies: Coded Allergies: celecoxib (Unverified Allergy, Unknown, 12/22/18) UPSET STOMACH naproxen (Unverified Allergy, Unknown, 12/22/18) UPSET STOMACH Discharge Summary Date of Admission Sep 05, 2020 at 12:41 Date of Discharge Discharge Date: Sep 08, 2020 Discharge Diagnosis Assessment: PNA AECOPD Lung cancer Hypoxia Plan: O2 Nebs Abx TISH CHI DO Sep 08, 2020 10:55
--- NOTE | 2020-09-08 12:45 | NUR ---
CM/SS: Telephone Call to Rashida - [facility] - [phone] - letting them know that pt was going to be dismissed from the hospital today and was requesting that pt's home care be resumed as he was discharging from the hospital. Rashida thanked this worker for the notification.
[2020-09-08 13:56] VITALS: BP 128/60
== END 2020-09-08 13:00 | disposition home health service (06) | DRG 871 ==
LOC: 4TH 16:42 → OBSVTOIN 09-05 12:41
PROVIDERS: ADMIT Family Medicine; ATTEND Internal Medicine
DX: A41.9 Sepsis, unspecified organism (principal); J18.9 Pneumonia, unspecified organism; J44.1 Chronic obstructive pulmonary disease with (acute) exacerbation; C7A.8 Other malignant neuroendocrine tumors; C7B.8 Other secondary neuroendocrine tumors; J44.0 Chronic obstructive pulmonary disease with (acute) lower respiratory infection; M43.16 Spondylolisthesis, lumbar region; M43.17 Spondylolisthesis, lumbosacral region; R65.20 Severe sepsis without septic shock; F17.210 Nicotine dependence, cigarettes, uncomplicated; M06.9 Rheumatoid arthritis, unspecified; J84.112 Idiopathic pulmonary fibrosis; I10 Essential (primary) hypertension; E78.5 Hyperlipidemia, unspecified; E11.9 Type 2 diabetes mellitus without complications; Z79.4 Long term (current) use of insulin; Z88.6 Allergy status to analgesic agent; Z83.3 Family history of diabetes mellitus
CPT/HCPCS: 36415; 71045; 71046; 72220; 80053; 82962; 83605; 85007; 85025; 85027; 87040; 94640; 94664; 94760; 99211; G0378

== ENCOUNTER 2020-09-16 18:01 | Inpatient (IN) | payer MEDICAID ==
[~2020-09-16] VITALS: Ht 170 cm; Wt 81.6 kg
[~2020-09-16 18:01] MED LIST changes: +FURO20TA4 PO; -LISI-552 PO; +LISI20TA26 PO
[2020-09-16] MEDS ORDERED: ADVAIR HFA 115/21 MCG INHALER 8 GM IH ONE ×2 (18:15→21:00)
[2020-09-16] MEDS ORDERED: ALBUTEROL/IPRATROP (COMBIVENT RESPIMAT) 4 GM INHALER ONE (18:15)
[2020-09-16] MEDS ORDERED: fentaNYL INJECTION 100 MCG/2 ML AMP ONE (18:26)
--- NOTE | 2020-09-16 18:29 | ED Respiratory ---
General Stated Complaint: SOB Source: patient History of Present Illness Date Seen by Provider: Sep 16, 2020 Time Seen by Provider: 18:05 Initial Comments PT ARRIVES VIA EMS FROM HOME C/O SHORTNESS OF BREATH SINCE YESTERDAY, WORSE TODAY PT WITH COPD AND WEARS HOME O2 AT 2L/NC CONTINOUSLY, O2 SAT 98% ON 2L/NC FOR EMS, 99% ON ROOM AIR ON ARRIVAL PT USES ALBUTEROL NEB TREATMENTS EVERY 4 HOURS AT HOME, LAST HOME TREATMENT WAS 2 HOURS AGO. EMS GAVE DUONEB TREATMENT EN ROUTE--STATES IT HELPED SOME PT ALSO DX WITH STAGE 4 LUNG CANCER IN JULY OF THIS YEAR. NO TREATMENT YET. PT RECEIVED HIS FIRST COVID-19 VACCINATION TODAY NO INCREASE IN CHRONIC COUGH NO CHEST PAIN NO SORE THROAT NO LOSS OF TASTE OR SMELL NO HEADACHE NO GI SYMPTOMS C/O PAIN TO TAILBONE--ONGOING PROBLEM--STATES HIS CANCER HAS SPREAD TO HIS TAILBONE AND THIS IS CAUSE OF PAIN. NO INJURY. HAS NOT TAKEN ANYTHING FOR PAIN NO NEW BODY ACHES NO FEVER/SWEATS/CHILLS NO SWELLING IN LEGS/ FEET OR PAIN IN CALVES PT IS TYPE 2 DIABETIC, ON ORAL MEDICATION. ADMITTED 08/04-08/10/20 FOR SEVERE SEPSIS, INFLUENZA B, HAD POST OBSTRUCTIVE PNEUMONIA, AND LUNG MASS FOUND, THEN HAD OUTPATIENT BRONCHOSCOPY ADMITTED 09/05/20-09/08/20 FOR COPD EXACERBATION NO KNOWN EXPOSURE TO COVID-19 PCP:DR. 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 RAMIREZ ONCOLOGIST: DR. GARCIA Allergies and Home Medications Allergies Coded Allergies: celecoxib (Unverified Allergy, Unknown, 12/22/18) UPSET STOMACH naproxen (Unverified Allergy, Unknown, 12/22/18) UPSET STOMACH Home Medications Albuterol Sulfate 18 Gm Hfa.aer.ad, 2 PUFF IH Q4H PRN for SHORTNESS OF BREATH, (Reported) Albuterol Sulfate 2.5 Mg/3 Ml Vial.neb, 2.5 MG NEB Q4H PRN for SHORTNESS OF BREATH, (Reported) Atorvastatin Calcium 40 Mg Tablet, 40 MG PO HS, (Reported) Canagliflozin 300 Mg Tablet, 300 MG PO DAILY, (Reported) Cefdinir 300 Mg Capsule, 300 MG PO BID Prescribed by: TISH CHI on 09/08/20 1053 Folic Acid 1 Mg Tablet, 1 MG PO DAILY, (Reported) Furosemide 20 Mg Tablet, 20 MG PO Q48H, (Reported) Glipizide 10 Mg Tablet, 10 MG PO BID, (Reported) Piroxicam 20 Mg Capsule, 20 MG PO DAILY, (Reported) Prednisone 10 Mg Tab.ds.pk, 10 MG PO DAILY Take 6 tabs(60mg)daily,decrease by 1 tab(10MG)daily. Prescribed by: TISH CHI on 09/08/20 1053 Pregabalin 75 Mg Capsule, 150 MG PO BID, (Reported) TAKES 2 (75MG) CAPS Patient Home Medication List Home Medication List Reviewed: Yes Review of Systems Review of Systems Constitutional: no symptoms reported; No chills, No fever EENTM: no symptoms reported; No ear pain, No nose congestion, No throat pain Respiratory: see HPI, cough, dyspnea on exertion, orthopnea, short of breath, wheezing Cardiovascular: no symptoms reported; No chest pain, No edema, No palpitations, No syncope, No vascular heart diseas Gastrointestinal: no symptoms reported; No abdominal pain, No diarrhea, No nausea, No vomiting Genitourinary: no symptoms reported Musculoskeletal: see HPI (TAILBONE PAIN DUE TO METASTATIC DISEASE TO AREA) Skin: no symptoms reported Psychiatric/Neurological: No Symptoms Reported; Denies Headache Hematologic/Lymphatic: No Symptoms Reported Immunological/Allergic: no symptoms reported Past Ashhukm-Hchrnj-Fexodk Hx Past Med/Social Hx: Reviewed and Corrections made Patient Social History Alcohol Use: Denies Use Drug of Choice: DENIES Smoking Status: Former Smoker (2 PPD) Type Used: Cigarettes Former Smoker, Quit: Aug 19, 2020 2nd Hand Smoke Exposure: Yes Recent Hopitalizations: Yes Immunizations Up To Date Tetanus Booster (TDap): Unknown Date of Pneumonia Vaccine: Jun 01, 2013 Date of Influenza Vaccine: Jun 30, 2020 Seasonal Allergies Seasonal Allergies: No Past Medical History Surgeries: Yes (COLONOSCOPY/POLYPECTOMY; BRONCHOSCOPY) Respiratory: Yes (HOME O2 AT 2L/NC; STAGE 4 LUNG CANCER DX 07/2020) Pneumonia, COPD Currently Using CPAP: No Currently Using BIPAP: No Cardiac: Yes (RBBB) High Cholesterol, Hypertension Neurological: No Reproductive Disorders: No Genitourinary: No Gastrointestinal: No Musculoskeletal: Yes (METS TO TAILBONE AREA) Rheumatoid Arthritis Endocrine: Yes (TYPE 2 DIABETES--ON ORAL MEDICATION) Diabetes, Non-Insulin dep HEENT: Yes (BLIND IN LEFT EYE) Loss of Vision: Left Cancer: Yes Lung Did You Recieve Any Treatments: No STAGE 4 LUNG CANCER DX 07/2020--METS TO [id number] AREA. NO TREATMENT OF 09/16/20 Psychosocial: No Integumentary: Yes Psoriasis Blood Disorders: No Adverse Reaction/Blood Tranf: No Family Medical History Cancer G8 SISTER Family history: Diabetes mellitus G8 SISTER Cancer, Diabetes Physical Exam Vital Signs - First Documented Capillary Refill : Height: 5'7.00" Weight: 198lbs. 7.7oz. 89.677602dx; 27.71 BMI Method:Stated General Appearance: WD/WN, other (MILD DYSPNEA, BUT UNCOMFORTABLE DUE TO PAIN IN TAILBONE. ) Neck: normal inspection Respiratory: other (MILDLY DYSPNEIC. 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, no motor/sensory deficits, alert, normal mood/affect, oriented x 3 Skin: warm/dry, pallor Focused Exam Lactate Level 09/16/20 18:15: Lactic Acid Level 1.98 Lactic Acid Level Laboratory Tests Test 09/16/20 18:15 Lactic Acid Level 1.98 MMOL/L (0.50-2.00) Progress/Results/Core Measures Suspected Sepsis SIRS Temperature: Pulse: Respiratory Rate: Laboratory Tests 09/16/20 18:15: White Blood Count 13.0H Blood Pressure / Mean: 09/16/20 18:15: Lactic Acid Level 1.98 Laboratory Tests 09/16/20 18:15: Creatinine 0.92, INR Comment 1.1, Platelet Count 291, Total Bilirubin 0.5 Results/Orders Lab Results Laboratory Tests Test 09/16/20 18:15 09/16/20 18:24 Range/Units White Blood Count 13.0 H 4.3-11.0 10^3/uL Red Blood Count 4.89 4.30-5.52 10^6/uL Hemoglobin 13.3 13.3-17.7 g/dL Hematocrit 43 40-54 % Mean Corpuscular Volume 88 80-99 fL Mean Corpuscular Hemoglobin 27 25-34 pg Mean Corpuscular Hemoglobin Concent 31 L 32-36 g/dL Red Cell Distribution Width 18.6 H 10.0-14.5 % Platelet Count 291 130-400 10^3/uL Mean Platelet Volume 10.4 9.0-12.2 fL Immature Granulocyte % (Auto) 1 % Neutrophils (%) (Auto) 77 H 42-75 % Lymphocytes (%) (Auto) 15 12-44 % Monocytes (%) (Auto) 6 0-12 % Eosinophils (%) (Auto) 1 0-10 % Basophils (%) (Auto) 0 0-10 % Neutrophils # (Auto) 10.0 H 1.8-7.8 10^3/uL Lymphocytes # (Auto) 2.0 1.0-4.0 10^3/uL Monocytes # (Auto) 0.8 0.0-1.0 10^3/uL Eosinophils # (Auto) 0.1 0.0-0.3 10^3/uL Basophils # (Auto) 0.0 0.0-0.1 10^3/uL Immature Granulocyte # (Auto) 0.1 0.0-0.1 10^3/uL Prothrombin Time 14.6 12.2-14.7 SEC INR Comment 1.1 0.8-1.4 Activated Partial Thromboplast Time 29 24-35 SEC Sodium Level 139 135-145 MMOL/L Potassium Level 4.0 3.6-5.0 MMOL/L Chloride Level 102 98-107 MMOL/L Carbon Dioxide Level 22 21-32 MMOL/L Anion Gap 15 H 5-14 MMOL/L Blood Urea Nitrogen 24 H 7-18 MG/DL Creatinine 0.92 0.60-1.30 MG/DL Estimat Glomerular Filtration Rate > 60 BUN/Creatinine Ratio 26 Glucose Level 102 70-105 MG/DL Lactic Acid Level 1.98 0.50-2.00 MMOL/L Calcium Level 9.4 8.5-10.1 MG/DL Corrected Calcium 9.6 8.5-10.1 MG/DL Magnesium Level 2.1 1.6-2.4 MG/DL Total Bilirubin 0.5 0.1-1.0 MG/DL Aspartate Amino Transf (AST/SGOT) 15 5-34 U/L Alanine Aminotransferase (ALT/SGPT) 27 0-55 U/L Alkaline Phosphatase 114 40-136 U/L Lactate Dehydrogenase 275 H 125-220 U/L Total Creatine Kinase 32 30-200 U/L Creatine Kinase MB 0.7 <6.6 NG/ML Myoglobin 23.8 10.0-92.0 NG/ML Troponin I < 0.028 <0.028 NG/ML C-Reactive Protein High Sensitivity 4.32 H 0.00-0.50 MG/DL B-Type Natriuretic Peptide 29.0 <100.0 PG/ML Total Protein 7.7 6.4-8.2 GM/DL Albumin 3.8 3.2-4.5 GM/DL Procalcitonin 4.92 H <0.10 NG/ML Coronavirus 2019 (AZRA) Positive H Negative Blood Gas Puncture Site unk Blood Gas Patient Temperature 96.5 Arterial Blood pH 7.44 H 7.37-7.43 Arterial Blood Partial Pressure CO2 36 35-45 MMHG Arterial Blood Partial Pressure O2 117 H 79-93 MMHG Arterial Blood HCO3 24 23-27 MMOL/L Arterial Blood Total CO2 25.3 21.0-31.0 MMOL/L Arterial Blood Oxygen Saturation 99 94-100 % Arterial Blood Base Excess 0.2 -2.5-2.5 MMOL/L Cristobal Test UNK Blood Gas Ventilator Setting NO Blood Gas Inspired Oxygen UNK Micro Results Microbiology 09/16/20 Influenza Types A,B Antigen ([place]) - Final, Complete My Orders Orders - ZAHRAA MCDONALD DO Ed Iv/Invasive Line Start (09/16/20 18:09) Ekg Tracing (09/16/20 18:09) O2 (09/16/20 18:09) Monitor-Rhythm Ecg Trace Only (09/16/20 18:09) BNP (09/16/20 18:09) Creatine Kinase (09/16/20 18:09) Creatine Kinase Mb (09/16/20 18:09) Lactic Acid Analyzer (09/16/20 18:09) Magnesium (09/16/20 18:09) Protime With Inr (09/16/20 18:09) Partial Thromboplastin Time (09/16/20 18:09) Blood Culture (09/16/20 18:09) Influenza A And B Antigens (09/16/20 18:09) Myoglobin Serum (09/16/20 18:09) Troponin I (09/16/20 18:09) Cbc With Automated Diff (09/16/20 18:09) Comprehensive Metabolic Panel (09/16/20 18:09) Procalcitonin (Pct) (09/16/20 18:09) Hs C Reactive Protein (09/16/20 18:09) Erythrocyte Sedimentation Rate (09/16/20 18:09) LDH (09/16/20 18:09) Ekg Tracing (09/16/20 18:09) Chest 1 View, Ap/Pa Only (09/16/20 18:09) Coronavirus Sars-Cov-2 So 2018 (09/16/20 18:09) Covid 19 Inhouse Test (09/16/20 18:09) Dexamethasone Injection (Decadron Inje (09/16/20 18:15) Fluticasone/Salmeterol 115/21 (Advair Hf (09/16/20 18:15) Albuterol/Ipratropium Inhaler (Combivent (09/16/20 18:15) Arterial Blood Gas (09/16/20 18:26) Fluticasone/Salmeterol 115/21 (Advair Hf (09/16/20 21:00) Albuterol/Ipratropium Inhaler (Combivent (09/16/20 21:00) Rt Request For Service (09/16/20 18:26) Fentanyl Injection (Sublimaze Injection (09/16/20 18:30) Fentanyl Injection (Sublimaze Injection (09/16/20 18:26) Dexamethasone Injection (Decadron Inje (09/16/20 18:45) Ed Iv/Invasive Line Start (09/16/20 19:23) Ns Iv 1000 Ml (Sodium Chloride 0.9%) (09/16/20 19:30) Dexamethasone Injection (Decadron Inje (09/16/20 20:00) Medications Given in ED Current Medications Medications Dose Ordered Sig/Sara Route Start Time Stop Time Status Last Admin Dose Admin Dexamethasone Sodium Phosphate 6 mg ONCE ONCE IV 09/16/20 18:15 09/16/20 18:38 DC 09/16/20 18:31 6 MG Fentanyl Citrate 50 mcg ONCE ONCE IVP 09/16/20 18:30 09/16/20 18:31 DC 09/16/20 18:31 50 MCG Vital Signs/I&O 09/16/20 09/16/20 18:05 18:05 Temp 36.5 Pulse 91 Resp 14 B/P (MAP) 119/80 (93) Pulse Ox 97 97 O2 Delivery Nasal Cannula Nasal Cannula O2 Flow Rate 2.00 2.00 Capillary Refill : Progress Note : Progress Note PLACED IN ISOLATION ROOM PPE WORN AT ALL TIMES COVID-19 TESTING PERFORMED GIVEN COMBIVENT AND ADVAIR INHALER TREATMENTS GIVEN DECADRON PT STATES HE FEELS LIKE HE CAN BREATHE MUCH BETTER O2 SATS REMAIN IN UPPER 90'S ROOM AIR. GIVEN FENTANYL FOR PAIN WITH IMPROVEMENT GIVEN IV FLUIDS ECG Initial ECG Impression Date: Sep 16, 2020 Initial ECG Impression Time: 18:20 Initial ECG Rate: 94 Initial ECG Rhythm: Normal Sinus (RBBB,LAFB) Diagnostic Imaging Comments CXR--PER RADIOLOGIST REPORT AT 1920 Findings: There is slight improved aeration of the right midlung field. There is otherwise stable increased lung markings/infiltrates involving the right lung with the right lung apex and lung base region affected the most. There is slight increased airspace opacity in the lateral left lung base region and left midlung field region which is superimposed upon previously seen groundglass opacification and curvilinear opacities. There is no pleural effusion or pneumothorax. Cardiac silhouette is partially obscured, but appears within normal limits. There is no significant pulmonary vascular congestion. The remainder of this exam shows no significant interval change compared to the prior study of comparison. IMPRESSION: 1: There are diffuse bilateral lung infiltrates are again seen which is slightly improved in the right midlung field region and slightly progressed in the left midlung field lateral left lung base regions. Reviewed: Reviewed by Wi Departure Communication (Admissions) 1923--ATTEMPTING TO CONTACT DR. 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 NO ANSWER, UNABLE TO LEAVE MESSAGE 1929--ATTEMPTING TO CONTACT DR. BRADY, NO ANSWER 1935--ATTEMPTING TO CONTACT DR. BRADY, NO ANSWER 1999--ATTEMPTING TO CONTACT DR. BRADY, NO ANSWER 2006--CALLED [employer]ATT[employer]ER. SHE WILL ATTEMPT TO CONTACT DR. BRADY 2010--SPOKE WITH DR. BRADY, ACCEPTS PT FOR ADMIT. ORDERS NOTED. Impression Primary Impression: COVID-19 virus infection Additional Impressions: COPD EXACERBATIONH PERSISTENT POSITIVE INFLUENZA B TEST STAGE 4 LUNG CANCER WITH METS TO BONE PERSISTENT BILATERAL LUNG INFILTRATES NIDDM HTN (hypertension) Disposition: ADMITTED INPATIENT Condition: Improved Admissions Decision to Admit Reason: Admit from ER (General) Decision to Admit/Date: Sep 16, 2020 Time/Decision to Admit Time: 20:15 Departure-Patient Inst. Referrals: JOSE F VALLEJO MD (PCP/Family) Primary Care Physician ZAHRAA MCDONALD DO Sep 16, 2020 18:29
[2020-09-16] MEDS ORDERED: fentaNYL INJECTION 100 MCG/2 ML AMP IVP ONE (18:30)
[2020-09-16 18:34] LABS: ABG BASE EXCESS 0.2 MMOL/L (-2.5-2.5); ABG OXYGEN SATURATION 99 % (94-100); ABG PCO2 36 MMHG (35-45); ABG PH 7.44 (7.37-7.43); ABG PO2 117 MMHG (79-93); ABG TCO2 25.3 MMOL/L (21.0-31.0)
[2020-09-16 18:35] LABS: PATIENT TEMP 96.5; VENTILATOR NO
[2020-09-16 18:35] LABS: BASOPHILS % (AUTO) 0 % (0-10); EOSINOPHILS # (AUTO) 0.1 10^3/uL (0.0-0.3); EOSINOPHILS % (AUTO) 1 % (0-10); HEMATOCRIT 43 % (40-54); HEMOGLOBIN 13.3 g/dL (13.3-17.7); LYMPHOCYTES % (AUTO) 15 % (12-44); MEAN CORPUSCULAR HEMOGLOBIN 27 pg (25-34); MEAN CORPUSCULAR HGB CONC 31 g/dL (32-36); MEAN CORPUSCULAR VOLUME 88 fL (80-99); MEAN PLATELET VOLUME 10.4 fL (9.0-12.2); MONOCYTES # (AUTO) 0.8 10^3/uL (0.0-1.0); MONOCYTES % (AUTO) 6 % (0-12); NEUTROPHILS % (AUTO) 77 % (42-75); PLATELET COUNT 291 10^3/uL (130-400)
[2020-09-16 18:41] LABS: ALBUMIN 3.8 GM/DL (3.2-4.5); CHLORIDE 102 MMOL/L (98-107); SODIUM 139 MMOL/L (135-145)
[2020-09-16 18:42] LABS: CALCIUM 9.4 MG/DL (8.5-10.1)
[2020-09-16 18:43] LABS: GLUCOSE 102 MG/DL (70-105); TOTAL PROTEIN 7.7 GM/DL (6.4-8.2)
[2020-09-16 18:44] LABS: CARBON DIOXIDE 22 MMOL/L (21-32)
[2020-09-16 18:45] LABS: BILIRUBIN,TOTAL 0.5 MG/DL (0.1-1.0)
[2020-09-16 18:47] LABS: ALKALINE PHOSPHATASE 114 U/L (40-136); CREATININE SERUM 0.92 MG/DL (0.60-1.30); GFR ESTIMATED > 60
[2020-09-16 18:48] LABS: BUN/CREATININE RATIO 26
[2020-09-16 18:50] LABS: ALANINE AMINOTRANSFERASE 27 U/L (0-55); MAGNESIUM 2.1 MG/DL (1.6-2.4)
[2020-09-16 18:51] LABS: CREATINE KINASE 32 U/L (30-200)
[2020-09-16 18:56] LABS: INR 1.1 (0.8-1.4); PROTHROMBIN TIME PATIENT 14.6 SEC (12.2-14.7)
[2020-09-16 18:58] LABS: CREATINE KINASE MB 0.7 NG/ML (<6.6)
--- NOTE | 2020-09-16 19:16 | Diagnostic Imaging Report ---
Clinical indication: Patient with dyspnea and shortness of air. Patient has congestion. Exam: Portable chest x-ray upright view. Comparisons: Chest x-ray dated 09/06/2020. Findings: There is slight improved aeration of the right midlung field. There is otherwise stable increased lung markings/infiltrates involving the right lung with the right lung apex and lung base region affected the most. There is slight increased airspace opacity in the lateral left lung base region and left midlung field region which is superimposed upon previously seen groundglass opacification and curvilinear opacities. There is no pleural effusion or pneumothorax. Cardiac silhouette is partially obscured, but appears within normal limits. There is no significant pulmonary vascular congestion. The remainder of this exam shows no significant interval change compared to the prior study of comparison. IMPRESSION: 1: There are diffuse bilateral lung infiltrates are again seen which is slightly improved in the right midlung field region and slightly progressed in the left midlung field lateral left lung base regions. Dictated by: Dictated on workstation # [id number]
[2020-09-16] MEDS ORDERED: NS IV 1000 ML 1,000 ML IV SCH (19:30)
[2020-09-16] MEDS ORDERED: PIPERACILLIN SODIUM/TAZOBACTAM 4.5 GM in NS (IVPB) 100 ML IV ONE (20:30)
[2020-09-16] MEDS ORDERED: ALBUTEROL/IPRATROP (COMBIVENT RESPIMAT) 4 GM INHALER IH ONE (21:00)
[2020-09-16] MEDS ORDERED: NS (IVPB) 100 ML ONE (21:18)
[2020-09-16] MEDS ORDERED: WATER (STERILE) FOR INJECTION 20 ML ONE (21:18)
[2020-09-16] MEDS ORDERED: PIPERACILLIN/TAZO 4.5 GM VIAL (ZOSYN) IV ONE (21:18)
[2020-09-16] MEDS: NS IV 1000 ML 1,000 ML IV SCH (22:00)
[2020-09-16 22:12] VITALS: BP 111/67
[2020-09-17] VITALS (7 sets, daily range): BP systolic 99–128; BP diastolic 57–74
[2020-09-17] MEDS: fentaNYL INJECTION 100 MCG/2 ML AMP IVP PRN (01:13)
[2020-09-17] MEDS ORDERED: RT-ALBUTEROL INHALER HFA (VENTOLIN HFA) 18 GM IH PRN (01:45)
[2020-09-17] MEDS ORDERED: RT-ALBUTEROL INHALER HFA (VENTOLIN HFA) 18 GM IH SCH (02:00)
[2020-09-17] MEDS ORDERED: PIPERACILLIN/TAZO 4.5 GM VIAL (ZOSYN) IV ONE (02:40)
[2020-09-17] MEDS ORDERED: NS (IVPB) 100 ML ONE (02:47)
[2020-09-17] MEDS: PIPERACILLIN/TAZO 4.5 GM/NS 100 ML IV SCH ×6 (03:03→18:31)
[2020-09-17 05:43] LABS: BASOPHILS % (AUTO) 0 % (0-10); EOSINOPHILS % (AUTO) 0 % (0-10); HEMATOCRIT 39 % (40-54); LYMPHOCYTES # (AUTO) 0.7 10^3/uL (1.0-4.0); LYMPHOCYTES % (AUTO) 9 % (12-44); MEAN CORPUSCULAR HEMOGLOBIN 27 pg (25-34); MEAN CORPUSCULAR HGB CONC 31 g/dL (32-36); MEAN CORPUSCULAR VOLUME 88 fL (80-99); MEAN PLATELET VOLUME 10.2 fL (9.0-12.2); MONOCYTES # (AUTO) 0.1 10^3/uL (0.0-1.0); MONOCYTES % (AUTO) 2 % (0-12); NEUTROPHILS % (AUTO) 89 % (42-75); PLATELET COUNT 269 10^3/uL (130-400); WHITE BLOOD COUNT 7.8 10^3/uL (4.3-11.0)
[2020-09-17] MEDS: inSUlin ASPART (NovoLOG) 1 UNIT/0.01 ML (CHARGE PER UNIT) SC SCH ×4 (05:45→20:05)
[2020-09-17 05:59] LABS: ALBUMIN 3.4 GM/DL (3.2-4.5); CHLORIDE 104 MMOL/L (98-107); POTASSIUM 4.6 MMOL/L (3.6-5.0); SODIUM 136 MMOL/L (135-145)
[2020-09-17 06:00] LABS: CALCIUM 8.9 MG/DL (8.5-10.1)
[2020-09-17] MEDS ORDERED: ALBUTEROL/IPRATROP (COMBIVENT RESPIMAT) 4 GM INHALER IH SCH (06:00)
[2020-09-17 06:01] LABS: GLUCOSE 169 MG/DL (70-105)
[2020-09-17 06:02] LABS: CARBON DIOXIDE 17 MMOL/L (21-32)
[2020-09-17 06:03] LABS: BILIRUBIN,TOTAL 0.7 MG/DL (0.1-1.0)
[2020-09-17 06:05] LABS: ALKALINE PHOSPHATASE 99 U/L (40-136); CREATININE SERUM 0.81 MG/DL (0.60-1.30); GFR ESTIMATED > 60
[2020-09-17 06:06] LABS: BUN/CREATININE RATIO 26
[2020-09-17 06:08] LABS: ALANINE AMINOTRANSFERASE 22 U/L (0-55)
[2020-09-17 06:43] LABS: ANISOCYTOSIS SLIGHT; BASOPHILS % (MANUAL) 1 %; LYMPHOCYTES % (MANUAL) 9 %; MONOCYTES % (MANUAL) 4 %; NEUTROPHILS % (MANUAL) 86 %
[2020-09-17] MEDS: ENOXAPARIN 40 MG/0.4 ML (LOVENOX) SYR SC SCH (08:46)
[2020-09-17] MEDS: IPRATROPIUM INHALER (ATROVENT) 12.9 GM INH SCH ×4 (09:54→22:06)
[2020-09-17] MEDS: ADVAIR HFA 115/21 MCG INHALER 8 GM IH SCH ×2 (09:54→18:21)
[2020-09-17] MEDS: RT-ALBUTEROL INHALER HFA (VENTOLIN HFA) 18 GM IH SCH ×4 (10:10→22:06)
[2020-09-17] MEDS ORDERED: REMDESIVIR INJ 200 MG in NS (IVPB) 210 ML IV NR (11:00)
[2020-09-17] MEDS: NS IV 1000 ML 1,000 ML IV SCH (12:40)
[2020-09-17] MEDS ORDERED: METH2.5T PO (15:10)
--- NOTE | 2020-09-17 16:27 | History & Physical ---
HPI History of Present Illness: 65 yo with recent diagnosis of metastatic lung cancer that presented with shortness of breath and COVID and Flu B positive. Patient states that he has been feeling weaker and short of breath for the last 2-3 days. States that he has not started any treatment for his lung Ca but is following with Dr Gray. Patient was requiring oxygen in the ER and now intermittently. Denies any fever or chills. States that he has been taking his breathing treatments and has not missed any medications. Source: patient Exam Limitations: no limitations Date seen by provider: Sep 17, 2020 Time Seen by Provider: 11:00 Attending Physician Fátima Keenan MD PCP Kaya Reyez MD Consult Date of Admission Sep 16, 2020 at 20:15 Home Medications Home Medications Reviewed patient Home Medication Reconciliation performed by pharmacy medication reconciliations lead injection mold technician and/or nursing. Patients Allergies have been reviewed. Allergies Coded Allergies: celecoxib (Unverified Allergy, Unknown, 12/22/18) UPSET STOMACH naproxen (Unverified Allergy, Unknown, 12/22/18) UPSET STOMACH [id number] Hx Patient Social History Drug of Choice: DENIES Smoking Status: Current Everyday Smoker 2nd Hand Smoke Exposure: Yes Recent Hopitalizations: Yes Alcohol Use?: No Tobacco type used: Cigarettes Have you traveled recently?: No Immunizations Up To Date Tetanus Booster (TDap): Unknown Date of Pneumonia Vaccine: Jun 01, 2013 Date of Influenza Vaccine: Jul 16, 2020 Past Medical History PMHx: Rhuematoid Arthritis Pulmonary Fibrosis Hypertension Non Insulin Dependent DM Psoriasis HLD Family Medical History Significant Family History: Cancer, Diabetes Family History: Cancer G8 SISTER Family history: Diabetes mellitus G8 SISTER Review of Systems ([facility]) Constitutional: No chills, No fever; malaise, weakness EENTM: no symptoms reported; No mouth pain, No nose congestion, No nose pain Respiratory: cough, dyspnea on exertion, short of breath Cardiovascular: no symptoms reported; No chest pain, No edema, No palpitations Gastrointestinal: no symptoms reported; No abdominal pain, No constipation, No diarrhea, No nausea, No vomiting Genitourinary: no symptoms reported; No dysuria, No frequency, No hematuria Musculoskeletal: back pain; No joint pain, No muscle pain Skin: no symptoms reported; No lesions, No rash Psychiatric/Neurological: Weakness Reviewed Test Results Reviewed Test Results Lab Laboratory Tests Test 09/16/20 18:15 09/16/20 18:24 09/17/20 05:33 09/17/20 05:42 Range/Units White Blood Count 13.0 H 7.8 4.3-11.0 10^3/uL Red Blood Count 4.89 4.39 4.30-5.52 10^6/uL Hemoglobin 13.3 12.0 L 13.3-17.7 g/dL Hematocrit 43 39 L 40-54 % Mean Corpuscular Volume 88 88 80-99 fL Mean Corpuscular Hemoglobin 27 27 25-34 pg Mean Corpuscular Hemoglobin Concent 31 L 31 L 32-36 g/dL Red Cell Distribution Width 18.6 H 18.4 H 10.0-14.5 % Platelet Count 291 269 130-400 10^3/uL Mean Platelet Volume 10.4 10.2 9.0-12.2 fL Immature Granulocyte % (Auto) 1 1 % Neutrophils (%) (Auto) 77 H 89 H 42-75 % Lymphocytes (%) (Auto) 15 9 L 12-44 % Monocytes (%) (Auto) 6 2 0-12 % Eosinophils (%) (Auto) 1 0 0-10 % Basophils (%) (Auto) 0 0 0-10 % Neutrophils # (Auto) 10.0 H 7.0 1.8-7.8 10^3/uL Lymphocytes # (Auto) 2.0 0.7 L 1.0-4.0 10^3/uL Monocytes # (Auto) 0.8 0.1 0.0-1.0 10^3/uL Eosinophils # (Auto) 0.1 0.0 0.0-0.3 10^3/uL Basophils # (Auto) 0.0 0.0 0.0-0.1 10^3/uL Immature Granulocyte # (Auto) 0.1 0.1 0.0-0.1 10^3/uL Prothrombin Time 14.6 12.2-14.7 SEC INR Comment 1.1 0.8-1.4 Activated Partial Thromboplast Time 29 24-35 SEC Sodium Level 139 136 135-145 MMOL/L Potassium Level 4.0 4.6 3.6-5.0 MMOL/L Chloride Level 102 104 98-107 MMOL/L Carbon Dioxide Level 22 17 L 21-32 MMOL/L Anion Gap 15 H 15 H 5-14 MMOL/L Blood Urea Nitrogen 24 H 21 H 7-18 MG/DL Creatinine 0.92 0.81 0.60-1.30 MG/DL Estimat Glomerular Filtration Rate > 60 > 60 BUN/Creatinine Ratio 26 26 Glucose Level 102 169 H 70-105 MG/DL Lactic Acid Level 1.98 0.50-2.00 MMOL/L Calcium Level 9.4 8.9 8.5-10.1 MG/DL Corrected Calcium 9.6 9.4 8.5-10.1 MG/DL Magnesium Level 2.1 1.6-2.4 MG/DL Total Bilirubin 0.5 0.7 0.1-1.0 MG/DL Aspartate Amino Transf (AST/SGOT) 15 13 5-34 U/L Alanine Aminotransferase (ALT/SGPT) 27 22 0-55 U/L Alkaline Phosphatase 114 99 40-136 U/L Lactate Dehydrogenase 275 H 125-220 U/L Total Creatine Kinase 32 30-200 U/L Creatine Kinase MB 0.7 <6.6 NG/ML Myoglobin 23.8 10.0-92.0 NG/ML Troponin I < 0.028 <0.028 NG/ML C-Reactive Protein High Sensitivity 4.32 H 0.00-0.50 MG/DL B-Type Natriuretic Peptide 29.0 <100.0 PG/ML Total Protein 7.7 7.0 6.4-8.2 GM/DL Albumin 3.8 3.4 3.2-4.5 GM/DL Procalcitonin 4.92 H <0.10 NG/ML Coronavirus 2019 (AZRA) Positive H Negative Blood Gas Puncture Site unk Blood Gas Patient Temperature 96.5 Arterial Blood pH 7.44 H 7.37-7.43 Arterial Blood Partial Pressure CO2 36 35-45 MMHG Arterial Blood Partial Pressure O2 117 H 79-93 MMHG Arterial Blood HCO3 24 23-27 MMOL/L Arterial Blood Total CO2 25.3 21.0-31.0 MMOL/L Arterial Blood Oxygen Saturation 99 94-100 % Arterial Blood Base Excess 0.2 -2.5-2.5 MMOL/L Cristobal Test UNK Blood Gas Ventilator Setting NO Blood Gas Inspired Oxygen UNK Neutrophils % (Manual) 86 % Lymphocytes % (Manual) 9 % Monocytes % (Manual) 4 % Basophils % (Manual) 1 % Anisocytosis SLIGHT Glucometer 171 H 70-110 MG/DL Test 09/17/20 11:34 09/17/20 15:41 Range/Units Glucometer 231 H 211 H 70-110 MG/DL Physical Exam-([facility]) Physical Exam Vital Signs VS - Last 72 Hours, by Label 09/16/20 09/16/20 09/16/20 09/16/20 18:05 18:05 21:18 22:02 Temp 36.5 Pulse 91 101 Resp 14 18 B/P (MAP) 119/80 (93) 121/72 Pulse Ox 97 97 98 O2 Delivery Nasal Cannula Nasal Cannula Nasal Cannula O2 Flow Rate 2.00 2.00 2.00 09/16/20 09/16/20 09/17/20 09/17/20 22:12 22:30 00:00 00:49 Temp 36.1 36.2 Pulse 105 101 103 Resp 24 24 B/P (MAP) 111/67 (82) 104/68 (80) Pulse Ox 97 90 O2 Delivery Nasal Cannula Nasal Cannula Nasal Cannula O2 Flow Rate 2.00 2.00 2.00 09/17/20 09/17/20 09/17/20 09/17/20 01:08 03:08 06:41 08:00 Temp 36.1 36.2 Pulse 105 99 103 Resp 22 B/P (MAP) 99/61 (74) Pulse Ox 97 93 93 O2 Delivery Room Air Nasal Cannula O2 Flow Rate 2.00 09/17/20 09/17/20 09/17/20 09/17/20 08:18 09:55 11:36 12:39 Temp 36.0 35.9 Pulse 86 86 103 Resp 22 22 B/P (MAP) 115/74 (88) 111/70 (84) Pulse Ox 98 95 93 O2 Delivery Nasal Cannula Room Air Nasal Cannula O2 Flow Rate 2.00 2.00 09/17/20 09/17/20 14:02 14:02 Pulse Ox 95 95 O2 Delivery Room Air Room Air Capillary Refill : Less Than 3 Seconds General Appearance: WD/WN, no apparent distress, thin Neck: non-tender, full range of motion Respiratory: chest non-tender, no respiratory distress, decreased breath sounds, crackles Cardiovascular: normal peripheral pulses, regular rate, rhythm, no edema, no murmur Gastrointestinal: normal bowel sounds, non tender, soft Back: no CVA tenderness, no vertebral tenderness Extremities: normal range of motion, non-tender, normal inspection, no pedal edema, no calf tenderness, normal capillary refill Neurologic/Psychiatric: director global intelligence II-XII nml as tested, no motor/sensory deficits, alert, normal mood/affect, oriented x 3 Skin: normal color, warm/dry Lymphatic: no adenopathy Assessment/Plan Assessment/Plan Admission Status: Inpatient Order (span 2 midnights) Reason for Inpatient Admission: Patient high risk for decompensation from COVID, requiring oxygen therapy (1) Left upper lobe pneumonia Status: Acute Assessment & Plan: - Started on IV antibiotics, gentle IV fluid hydrations, titrate oxygen as tolerated Qualifiers: Qualified Codes: J18.9 - Pneumonia, unspecified organism (2) COVID-19 virus infection Status: Acute Assessment & Plan: - Plan to start on anti viral today (3) Metastatic primary lung cancer Status: Chronic Assessment & Plan: - Following with Dr Gray, has not started treatment at this time Qualifiers: Qualified Codes: C34.92 - Malignant neoplasm of unspecified part of left bronchus or lung (4) Non-insulin dependent type 2 diabetes mellitus Status: Chronic Assessment & Plan: - Accuchecks, SSI since patient is on IV steroids (5) HTN (hypertension) Status: Acute Qualifiers: Qualified Codes: I10 - Essential (primary) hypertension (6) COPD exacerbation Status: Acute (7) Rheumatoid arthritis Status: Chronic (8) Hyperlipidemia Status: Chronic Qualifiers: Qualified Codes: E78.2 - Mixed hyperlipidemia (9) DVT prophylaxis Status: Acute Assessment & Plan: - FÁTIMA Aaron MD Sep 17, 2020 16:26
[2020-09-17] MEDS: FUROSEMIDE 20 MG (LASIX) TAB PO SCH (16:41)
[2020-09-17] MEDS: PREGABALIN 75 MG (LYRICA) CAP PO SCH (20:05)
[2020-09-18] VITALS: BP 101/59
[2020-09-18] MEDS: IPRATROPIUM INHALER (ATROVENT) 12.9 GM INH SCH ×7 (01:56→21:31)
[2020-09-18] MEDS: RT-ALBUTEROL INHALER HFA (VENTOLIN HFA) 18 GM IH SCH ×6 (01:57→21:31)
[2020-09-18] MEDS: NS IV 1000 ML 1,000 ML IV SCH ×2 (02:23→11:42)
[2020-09-18] MEDS: PIPERACILLIN/TAZO 4.5 GM/NS 100 ML IV SCH ×6 (03:55→19:48)
[2020-09-18 04:13] VITALS: BP 111/70
[2020-09-18] MEDS: inSUlin ASPART (NovoLOG) 1 UNIT/0.01 ML (CHARGE PER UNIT) SC SCH ×4 (06:29→21:24)
[2020-09-18 06:42] LABS: ALBUMIN 3.5 GM/DL (3.2-4.5); CHLORIDE 106 MMOL/L (98-107); POTASSIUM 4.1 MMOL/L (3.6-5.0); SODIUM 141 MMOL/L (135-145)
[2020-09-18 06:43] LABS: CALCIUM 8.8 MG/DL (8.5-10.1)
[2020-09-18 06:44] LABS: GLUCOSE 156 MG/DL (70-105); TOTAL PROTEIN 6.8 GM/DL (6.4-8.2)
[2020-09-18 06:45] LABS: CARBON DIOXIDE 23 MMOL/L (21-32)
[2020-09-18 06:46] LABS: BILIRUBIN,TOTAL 0.3 MG/DL (0.1-1.0)
[2020-09-18 06:48] LABS: ALKALINE PHOSPHATASE 92 U/L (40-136); CREATININE SERUM 0.75 MG/DL (0.60-1.30); GFR ESTIMATED > 60
[2020-09-18 06:49] LABS: BUN/CREATININE RATIO 24
[2020-09-18 06:51] LABS: ALANINE AMINOTRANSFERASE 23 U/L (0-55)
[2020-09-18] MEDS: ADVAIR HFA 115/21 MCG INHALER 8 GM IH SCH ×2 (07:16→21:31)
[2020-09-18 08:33] VITALS: BP 111/64
[2020-09-18] MEDS: FOLIC ACID 1 MG TAB PO SCH (09:23)
[2020-09-18] MEDS: PREGABALIN 75 MG (LYRICA) CAP PO SCH ×2 (09:23→21:23)
[2020-09-18] MEDS: ENOXAPARIN 40 MG/0.4 ML (LOVENOX) SYR SC SCH (09:23)
[2020-09-18] MEDS: fentaNYL INJECTION 100 MCG/2 ML AMP IVP PRN ×2 (09:24→21:24)
[2020-09-18] MEDS: REMDESIVIR INJ 100 MG in NS (IVPB) 230 ML IV SCH (11:30)
[2020-09-18] MEDS: HYDROcodone/APAP 5 MG/325 MG (LORTAB) TAB PO PRN (11:45)
--- NOTE | 2020-09-18 13:13 | Progress Note ---
Subjective Subjective/Events-last exam Patient doing well this AM. States that he has pain with coughing and sitting. Good appetite and tolerating PO diet and ambulation well. Review of Systems Pulmonary: Dyspnea, Cough Cardiovascular: No: Chest Pain, Palpitations, Edema Gastrointestinal: No: Nausea, Vomiting, Abdominal Pain, Diarrhea, Constipation Musculoskeletal: back pain Neurological: No: Weakness, Incoordination Focused Exam Lactate Level 09/16/20 18:15: Lactic Acid Level 1.98 Objective Exam Last Set of Vital Signs Vital Signs Date Time Temp Pulse Resp B/P (MAP) Pulse Ox O2 Delivery O2 Flow Rate FiO2 09/18/20 12:48 99 09/18/20 11:25 92 Room Air 09/18/20 08:33 36.5 18 111/64 (80) 09/18/20 08:30 2.00 Capillary Refill : Less Than 3 Seconds I&O Intake and Output 09/18/20 00:00 Intake Total 2410 ml Output Total 2200 ml Balance 210 ml Intake Oral 2290 ml IV Total 120 ml Output Urine Total 2200 ml # Voids 2 # Bowel Movements 1 General: Alert, Oriented X3, Cooperative, No Acute Distress Lungs: Other (diminished breath sounds, NAD) Heart: Regular Rate, No Murmurs Abdomen: Normal Bowel Sounds, Soft, No Tenderness, No Masses Extremities: No Edema, No Tenderness/Swelling Neuro: Normal Speech, Strength at 5/5 X4 Ext, Sensation Intact, Cranial Nerves 3-12 NL Results/Procedures Lab Laboratory Tests 09/17/20 15:41: Glucometer 211H 09/17/20 19:46: Glucometer 258H 09/18/20 05:47: Glucometer 156H 09/18/20 06:14: Sodium Level 141, Potassium Level 4.1, Chloride Level 106, Carbon Dioxide Level 23, Anion Gap 12, Blood Urea Nitrogen 18, Creatinine 0.75, Estimat Glomerular Filtration Rate > 60, BUN/Creatinine Ratio 24, Glucose Level 156H, Calcium Level 8.8, Corrected Calcium 9.2, Total Bilirubin 0.3, Aspartate Amino Transf (AST/SGOT) 15, Alanine Aminotransferase (ALT/SGPT) 23, Alkaline Phosphatase 92, Total Protein 6.8, Albumin 3.5 Microbiology 09/16/20 Blood Culture - Preliminary, Resulted No growth 09/16/20 Influenza Types A,B Antigen ([place]) - Final, Complete Assessment/Plan Assessment/Plan (1) Left upper lobe pneumonia Status: Acute Assessment & Plan: - Started on IV antibiotics, gentle IV fluid hydrations, titrate oxygen as tolerated 09/18: Continue IV antibiotics, plan to transition to PO and possible d/c tomorrow Qualifiers: Qualified Codes: J18.9 - Pneumonia, unspecified organism (2) COVID-19 virus infection Status: Acute Assessment & Plan: - Plan to start on anti viral today (3) Metastatic primary lung cancer Status: Chronic Assessment & Plan: - Following with Dr Gray, has not started treatment at this time Qualifiers: Qualified Codes: C34.92 - Malignant neoplasm of unspecified part of left bro nchus or lung (4) Non-insulin dependent type 2 diabetes mellitus Status: Chronic Assessment & Plan: - Accuchecks, SSI since patient is on IV steroids (5) HTN (hypertension) Status: Acute Qualifiers: Qualified Codes: I10 - Essential (primary) hypertension (6) COPD exacerbation Status: Acute (7) Rheumatoid arthritis Status: Chronic (8) Hyperlipidemia Status: Chronic Qualifiers: Qualified Codes: E78.2 - Mixed hyperlipidemia (9) DVT prophylaxis Status: Acute Assessment & Plan: - FÁTIMA Aaron MD Sep 18, 2020 13:13
[2020-09-18 16:00] VITALS: BP 104/60
[2020-09-18 23:26] VITALS: BP 95/53
[2020-09-19] MEDS: IPRATROPIUM INHALER (ATROVENT) 12.9 GM INH SCH ×6 (01:40→21:50)
[2020-09-19] MEDS: RT-ALBUTEROL INHALER HFA (VENTOLIN HFA) 18 GM IH SCH ×6 (01:40→21:50)
[2020-09-19] MEDS: PIPERACILLIN/TAZO 4.5 GM/NS 100 ML IV SCH ×6 (02:07→18:05)
[2020-09-19] MEDS: NS IV 1000 ML 1,000 ML IV SCH ×2 (04:02→21:46)
[2020-09-19 06:34] LABS: BASOPHILS % (AUTO) 0 % (0-10); EOSINOPHILS % (AUTO) 0 % (0-10); HEMATOCRIT 35 % (40-54); HEMOGLOBIN 10.8 g/dL (13.3-17.7); LYMPHOCYTES # (AUTO) 1.8 10^3/uL (1.0-4.0); LYMPHOCYTES % (AUTO) 16 % (12-44); MEAN CORPUSCULAR HEMOGLOBIN 27 pg (25-34); MEAN CORPUSCULAR HGB CONC 31 g/dL (32-36); MEAN CORPUSCULAR VOLUME 88 fL (80-99); MEAN PLATELET VOLUME 10.6 fL (9.0-12.2); MONOCYTES # (AUTO) 0.7 10^3/uL (0.0-1.0); MONOCYTES % (AUTO) 6 % (0-12); NEUTROPHILS # (AUTO) 9.1 10^3/uL (1.8-7.8); NEUTROPHILS % (AUTO) 77 % (42-75); PLATELET COUNT 232 10^3/uL (130-400); WHITE BLOOD COUNT 11.8 10^3/uL (4.3-11.0)
[2020-09-19 06:42] LABS: ALBUMIN 3.3 GM/DL (3.2-4.5)
[2020-09-19 06:43] LABS: CHLORIDE 105 MMOL/L (98-107); POTASSIUM 3.9 MMOL/L (3.6-5.0); SODIUM 138 MMOL/L (135-145)
[2020-09-19 06:44] LABS: CALCIUM 8.5 MG/DL (8.5-10.1)
[2020-09-19 06:45] LABS: GLUCOSE 133 MG/DL (70-105); TOTAL PROTEIN 6.2 GM/DL (6.4-8.2)
[2020-09-19 06:46] LABS: CARBON DIOXIDE 22 MMOL/L (21-32)
[2020-09-19 06:47] LABS: BILIRUBIN,TOTAL 0.3 MG/DL (0.1-1.0)
[2020-09-19 06:48] LABS: ALKALINE PHOSPHATASE 80 U/L (40-136)
[2020-09-19 06:49] LABS: CREATININE SERUM 0.76 MG/DL (0.60-1.30); GFR ESTIMATED > 60
[2020-09-19 06:50] LABS: BUN/CREATININE RATIO 24
[2020-09-19] MEDS: inSUlin ASPART (NovoLOG) 1 UNIT/0.01 ML (CHARGE PER UNIT) SC SCH ×4 (06:50→21:46)
[2020-09-19 06:51] LABS: ALANINE AMINOTRANSFERASE 19 U/L (0-55)
[2020-09-19] MEDS: fentaNYL INJECTION 100 MCG/2 ML AMP IVP PRN ×3 (07:07→21:45)
[2020-09-19] MEDS: ADVAIR HFA 115/21 MCG INHALER 8 GM IH SCH ×2 (07:37→18:50)
[2020-09-19 08:00] VITALS: BP 102/68
[2020-09-19] MEDS: HYDROcodone/APAP 5 MG/325 MG (LORTAB) TAB PO PRN ×2 (09:28→16:38)
[2020-09-19] MEDS: PREGABALIN 75 MG (LYRICA) CAP PO SCH ×2 (09:28→21:45)
[2020-09-19] MEDS: FOLIC ACID 1 MG TAB PO SCH (09:29)
[2020-09-19] MEDS: ENOXAPARIN 40 MG/0.4 ML (LOVENOX) SYR SC SCH (09:29)
[2020-09-19] MEDS: REMDESIVIR INJ 100 MG in NS (IVPB) 230 ML IV SCH (11:28)
--- NOTE | 2020-09-19 13:37 | Progress Note - Hospitalist ---
Subjective HPI/CC On Admission Date Seen by Provider: Sep 19, 2020 Time Seen by Provider: 11:30 Subjective/Events-last exam Patient reports no difficulty getting to the bathroom and back with less dyspnea on exertion and no dyspnea at rest. Mild cough minimal sputum production no hemoptysis. He reports some left-sided chest pain when he coughs only. Denies nausea abdominal pain or diarrhea. He is anxious to be able to get started with chemotherapy for his underlying lung cancer but realizes it will be postponed because of his Covid infection. He denies chills or fever. Focused Exam Lactate Level 09/16/20 18:15: Lactic Acid Level 1.98 Objective Exam Vital Signs Vital Signs Date Time Temp Pulse Resp B/P (MAP) Pulse Ox O2 Delivery O2 Flow Rate FiO2 09/19/20 10:33 90 Room Air 09/19/20 08:00 35.3 88 20 102/68 (79) 09/18/20 20:00 2.00 Capillary Refill : Less Than 3 Seconds General Appearance: No Apparent Distress Respiratory: No Accessory Muscle Use, No Respiratory Distress, Other (Mild expiratory wheezing throughout with rales in the left upper left and right lower lobe areas more prominent on the left.) Cardiovascular: Regular Rate, Rhythm, No Edema, No Gallop, No JVD, No Murmur, Normal Peripheral Pulses Gastrointestinal: Normal Bowel Sounds, No Organomegaly, No Pulsatile Mass, Non Tender, Soft Results/Procedures Lab Laboratory Tests 09/19/20 05:25 Patient resulted labs reviewed. Assessment/Plan Assessment and Plan Assess & Plan/Chief Complaint (1) Left upper lobe pneumonia Status: Acute Assessment & Plan: - Started on IV antibiotics, gentle IV fluid hydrations, titrate oxygen as tolerated 09/18: Continue IV antibiotics, plan to transition to PO and possible d/c tomorrow 09/19: Patient clinically improving but considering still has significant reactive airways and has not finished remdesivir or Decadron we will keep over the weekend. Qualifiers: Qualified Codes: J18.9 - Pneumonia, unspecified organism (2) COVID-19 virus infection Status: Acute Assessment & Plan: - Plan to start on anti viral today (3) Metastatic primary lung cancer Status: Chronic Assessment & Plan: - Following with Dr Gray, has not started treatment at this time Qualifiers: Qualified Codes: C34.92 - Malignant neoplasm of unspecified part of left bronchus or lung (4) Non-insulin dependent type 2 diabetes mellitus Status: Chronic Assessment & Plan: - Accuchecks, SSI since patient is on IV steroids (5) HTN (hypertension) Status: Acute Qualifiers: Qualified Codes: I10 - Essential (primary) hypertension (6) COPD exacerbation Status: Acute (7) Rheumatoid arthritis Status: Chronic (8) Hyperlipidemia Status: Chronic Qualifiers: Qualified Codes: E78.2 - Mixed hyperlipidemia (9) DVT prophylaxis Status: Acute Assessment & Plan: - ROBBIE Chávez MD Sep 19, 2020 13:36
[2020-09-19] MEDS: FUROSEMIDE 20 MG (LASIX) TAB PO SCH (16:26)
[2020-09-19 16:27] VITALS: BP 120/62
[2020-09-20] VITALS: BP 100/60
[2020-09-20] MEDS: IPRATROPIUM INHALER (ATROVENT) 12.9 GM INH SCH ×6 (01:05→21:36)
[2020-09-20] MEDS: RT-ALBUTEROL INHALER HFA (VENTOLIN HFA) 18 GM IH SCH ×6 (01:06→21:37)
[2020-09-20] MEDS: NS IV 1000 ML 1,000 ML IV SCH ×2 (01:11→13:42)
[2020-09-20] MEDS: PIPERACILLIN/TAZO 4.5 GM/NS 100 ML IV SCH ×6 (03:02→18:33)
[2020-09-20 05:47] LABS: ALBUMIN 3.5 GM/DL (3.2-4.5); CHLORIDE 101 MMOL/L (98-107); POTASSIUM 3.9 MMOL/L (3.6-5.0); SODIUM 137 MMOL/L (135-145)
[2020-09-20 05:48] LABS: CALCIUM 8.9 MG/DL (8.5-10.1)
[2020-09-20 05:49] LABS: GLUCOSE 123 MG/DL (70-105); TOTAL PROTEIN 6.7 GM/DL (6.4-8.2)
[2020-09-20 05:50] LABS: CARBON DIOXIDE 25 MMOL/L (21-32)
[2020-09-20] MEDS: inSUlin ASPART (NovoLOG) 1 UNIT/0.01 ML (CHARGE PER UNIT) SC SCH ×4 (05:50→21:36)
[2020-09-20 05:51] LABS: BILIRUBIN,TOTAL 0.3 MG/DL (0.1-1.0)
[2020-09-20 05:53] LABS: ALKALINE PHOSPHATASE 124 U/L (40-136); CREATININE SERUM 0.75 MG/DL (0.60-1.30); GFR ESTIMATED > 60
[2020-09-20 05:54] LABS: BUN/CREATININE RATIO 19
[2020-09-20 05:56] LABS: ALANINE AMINOTRANSFERASE 20 U/L (0-55)
[2020-09-20] MEDS: ADVAIR HFA 115/21 MCG INHALER 8 GM IH SCH ×2 (07:25→18:28)
[2020-09-20 08:04] VITALS: BP 117/56
[2020-09-20] MEDS: PREGABALIN 75 MG (LYRICA) CAP PO SCH ×2 (08:24→21:36)
[2020-09-20] MEDS: ENOXAPARIN 40 MG/0.4 ML (LOVENOX) SYR SC SCH (08:24)
[2020-09-20] MEDS: FOLIC ACID 1 MG TAB PO SCH (08:25)
[2020-09-20] MEDS: HYDROcodone/APAP 5 MG/325 MG (LORTAB) TAB PO PRN ×2 (08:25→17:12)
[2020-09-20] MEDS: fentaNYL INJECTION 100 MCG/2 ML AMP IVP PRN ×2 (08:26→21:42)
[2020-09-20] MEDS: REMDESIVIR INJ 100 MG in NS (IVPB) 230 ML IV SCH (11:38)
--- NOTE | 2020-09-20 12:43 | Progress Note - Hospitalist ---
Subjective HPI/CC On Admission Date Seen by Provider: Sep 20, 2020 Time Seen by Provider: 12:00 Subjective/Events-last exam Patient denies night sweats chills or fever dyspnea on exertion is improving no dyspnea at rest still wheezing but chest does not feel as tight. Scant amount of greenish sputum reported. Objective Exam Vital Signs Vital Signs Date Time Temp Pulse Resp B/P (MAP) Pulse Ox O2 Delivery O2 Flow Rate FiO2 09/20/20 10:36 90 Room Air 09/20/20 08:04 36.2 85 20 117/56 (76) 09/19/20 20:00 2.00 Capillary Refill : Less Than 3 SecondsLess Than 3 Seconds General Appearance: No Apparent Distress Respiratory: No Accessory Muscle Use, No Respiratory Distress, Other (Mild expiratory wheezing throughout with increased air movement compared to yesterday no focal consolidative findings noted. Few dry sounding rales noted anteriorly.) Cardiovascular: Regular Rate, Rhythm, No Edema, No Gallop, No JVD, No Murmur Results/Procedures Lab Laboratory Tests 09/20/20 05:20 Patient resulted labs reviewed. Assessment/Plan Assessment and Plan Assess & Plan/Chief Complaint (1) Left upper lobe pneumonia With COVID-19 infection Status: Acute Assessment & Plan: - Started on IV antibiotics, gentle IV fluid hydrations, titrate oxygen as tolerated 09/18: Continue IV antibiotics, plan to transition to PO and possible d/c tomorrow 09/19: Patient clinically improving but considering still has significant reactive airways and has not finished remdesivir or Decadron we will keep over the weekend. Qualifiers: Qualified Codes: J18.9 - Pneumonia, unspecified organism (2) COVID-19 virus infection Status: Acute Assessment & Plan: - Plan to start on anti viral today (3) Metastatic primary lung cancer Status: Chronic Assessment & Plan: - Following with Dr Gray, has not started treatment at this time Qualifiers: Qualified Codes: C34.92 - Malignant neoplasm of unspecified part of left bronchus or lung (4) Non-insulin dependent type 2 diabetes mellitus Status: Chronic Assessment & Plan: - Accuchecks, SSI since patient is on IV steroids (5) HTN (hypertension) Status: Acute Qualifiers: Qualified Codes: I10 - Essential (primary) hypertension (6) COPD exacerbation Status: Acute (7) Rheumatoid arthritis Status: Chronic (8) Hyperlipidemia Status: Chronic Qualifiers: Qualified Codes: E78.2 - Mixed hyperlipidemia (9) DVT prophylaxis Status: Acute Assessment & Plan: - ROBBIE Chávez MD Sep 20, 2020 12:42
[2020-09-20 16:52] VITALS: BP 110/58
[2020-09-21 00:42] VITALS: BP 124/75
[2020-09-21] MEDS: IPRATROPIUM INHALER (ATROVENT) 12.9 GM INH SCH ×6 (02:39→21:40)
[2020-09-21] MEDS: PIPERACILLIN/TAZO 4.5 GM/NS 100 ML IV SCH ×6 (02:39→18:38)
[2020-09-21] MEDS: RT-ALBUTEROL INHALER HFA (VENTOLIN HFA) 18 GM IH SCH ×6 (02:40→21:40)
[2020-09-21] MEDS: inSUlin ASPART (NovoLOG) 1 UNIT/0.01 ML (CHARGE PER UNIT) SC SCH ×4 (05:57→20:28)
[2020-09-21] MEDS: fentaNYL INJECTION 100 MCG/2 ML AMP IVP PRN ×3 (05:58→20:34)
[2020-09-21 06:35] LABS: ALBUMIN 3.2 GM/DL (3.2-4.5); CHLORIDE 102 MMOL/L (98-107); POTASSIUM 3.9 MMOL/L (3.6-5.0); SODIUM 137 MMOL/L (135-145)
[2020-09-21 06:36] LABS: CALCIUM 8.5 MG/DL (8.5-10.1)
[2020-09-21 06:37] LABS: GLUCOSE 160 MG/DL (70-105)
[2020-09-21 06:38] LABS: CARBON DIOXIDE 25 MMOL/L (21-32)
[2020-09-21 06:39] LABS: BILIRUBIN,TOTAL 0.3 MG/DL (0.1-1.0)
[2020-09-21 06:41] LABS: ALKALINE PHOSPHATASE 120 U/L (40-136); CREATININE SERUM 0.73 MG/DL (0.60-1.30); GFR ESTIMATED > 60
[2020-09-21 06:42] LABS: BUN/CREATININE RATIO 16
[2020-09-21 06:44] LABS: ALANINE AMINOTRANSFERASE 19 U/L (0-55)
[2020-09-21 08:00] VITALS: BP 129/71
[2020-09-21] MEDS: ADVAIR HFA 115/21 MCG INHALER 8 GM IH SCH ×2 (08:15→18:17)
[2020-09-21] MEDS: FOLIC ACID 1 MG TAB PO SCH (09:29)
[2020-09-21] MEDS: ENOXAPARIN 40 MG/0.4 ML (LOVENOX) SYR SC SCH (09:29)
[2020-09-21] MEDS: HYDROcodone/APAP 5 MG/325 MG (LORTAB) TAB PO PRN ×2 (09:30→20:33)
[2020-09-21] MEDS: PREGABALIN 75 MG (LYRICA) CAP PO SCH ×2 (09:44→20:27)
--- NOTE | 2020-09-21 09:45 | Progress Note - Hospitalist ---
Subjective HPI/CC On Admission Date Seen by Provider: Sep 21, 2020 Time Seen by Provider: 10:00 Subjective/Events-last exam Pt doing a little better SOB is much improved Wheezing in the left lower lobe noted Will likely go home tomorrow Review of Systems General: Fatigue, Malaise Pulmonary: Dyspnea Objective Exam Vital Signs Vital Signs Date Time Temp Pulse Resp B/P (MAP) Pulse Ox O2 Delivery O2 Flow Rate FiO2 09/22/20 02:26 97 Nasal Cannula 2.00 09/22/20 00:40 36.2 73 20 119/59 (79) 09/21/20 13:19 28 Capillary Refill : Less Than 3 SecondsLess Than 3 Seconds General Appearance: No Apparent Distress, WD/WN, Chronically ill Respiratory: No Accessory Muscle Use, No Respiratory Distress, Crackles, Decreased Breath Sounds, Wheezing Cardiovascular: Regular Rate, Rhythm Neurologic/Psychiatric: Alert, Oriented x3, No Motor/Sensory Deficits, Normal Mood/Affect Results/Procedures Lab Laboratory Tests 09/21/20 06:00 Patient resulted labs reviewed. Assessment/Plan Assessment and Plan Assess & Plan/Chief Complaint Assessment: COVID-19 PNA Lung cancer Hypoxia Chronic O2 dependency Plan: DC home tomorrow TISH CHI DO Sep 21, 2020 09:45
[2020-09-21] MEDS: REMDESIVIR INJ 100 MG in NS (IVPB) 230 ML IV SCH (11:38)
[2020-09-21] MEDS: NS IV 1000 ML 1,000 ML IV SCH ×2 (11:38→22:12)
[2020-09-21 13:19] VITALS: BP 129/71
[2020-09-21 15:52] VITALS: BP 116/65
[2020-09-21] MEDS: FUROSEMIDE 20 MG (LASIX) TAB PO SCH (16:48)
[2020-09-22 00:40] VITALS: BP 119/59
[2020-09-22] MEDS: IPRATROPIUM INHALER (ATROVENT) 12.9 GM INH SCH ×6 (02:26→21:36)
[2020-09-22] MEDS: RT-ALBUTEROL INHALER HFA (VENTOLIN HFA) 18 GM IH SCH ×6 (02:26→21:36)
[2020-09-22] MEDS: NS IV 1000 ML 1,000 ML IV SCH ×2 (04:36→19:04)
[2020-09-22] MEDS: fentaNYL INJECTION 100 MCG/2 ML AMP IVP PRN ×3 (04:37→20:20)
[2020-09-22] MEDS: HYDROcodone/APAP 5 MG/325 MG (LORTAB) TAB PO PRN ×3 (04:37→20:20)
[2020-09-22] MEDS: inSUlin ASPART (NovoLOG) 1 UNIT/0.01 ML (CHARGE PER UNIT) SC SCH ×4 (05:13→20:21)
[2020-09-22 06:09] LABS: BASOPHILS % (AUTO) 0 % (0-10); EOSINOPHILS # (AUTO) 0.3 10^3/uL (0.0-0.3); EOSINOPHILS % (AUTO) 2 % (0-10); HEMATOCRIT 38 % (40-54); HEMOGLOBIN 11.8 g/dL (13.3-17.7); LYMPHOCYTES # (AUTO) 2.3 10^3/uL (1.0-4.0); LYMPHOCYTES % (AUTO) 18 % (12-44); MEAN CORPUSCULAR HEMOGLOBIN 28 pg (25-34); MEAN CORPUSCULAR HGB CONC 31 g/dL (32-36); MEAN CORPUSCULAR VOLUME 89 fL (80-99); MEAN PLATELET VOLUME 10.3 fL (9.0-12.2); MONOCYTES # (AUTO) 0.7 10^3/uL (0.0-1.0); MONOCYTES % (AUTO) 6 % (0-12); NEUTROPHILS % (AUTO) 72 % (42-75); PLATELET COUNT 233 10^3/uL (130-400); WHITE BLOOD COUNT 12.4 10^3/uL (4.3-11.0)
[2020-09-22 06:23] LABS: ALBUMIN 3.3 GM/DL (3.2-4.5)
[2020-09-22 06:24] LABS: CHLORIDE 99 MMOL/L (98-107); POTASSIUM 4.2 MMOL/L (3.6-5.0); SODIUM 137 MMOL/L (135-145)
[2020-09-22 06:25] LABS: CALCIUM 8.8 MG/DL (8.5-10.1)
[2020-09-22 06:26] LABS: GLUCOSE 216 MG/DL (70-105); TOTAL PROTEIN 6.2 GM/DL (6.4-8.2)
[2020-09-22 06:27] LABS: CARBON DIOXIDE 29 MMOL/L (21-32)
[2020-09-22 06:28] LABS: BILIRUBIN,TOTAL 0.3 MG/DL (0.1-1.0)
[2020-09-22 06:29] LABS: ALKALINE PHOSPHATASE 115 U/L (40-136)
[2020-09-22 06:30] LABS: CREATININE SERUM 0.74 MG/DL (0.60-1.30); GFR ESTIMATED > 60
[2020-09-22 06:31] LABS: BUN/CREATININE RATIO 22
[2020-09-22 06:32] LABS: ALANINE AMINOTRANSFERASE 16 U/L (0-55)
[2020-09-22] MEDS: ADVAIR HFA 115/21 MCG INHALER 8 GM IH SCH ×2 (07:04→18:00)
[2020-09-22 08:00] VITALS: BP 132/60
[2020-09-22] MEDS: FOLIC ACID 1 MG TAB PO SCH (08:39)
[2020-09-22] MEDS: PREGABALIN 75 MG (LYRICA) CAP PO SCH ×2 (08:39→20:21)
[2020-09-22] MEDS: ENOXAPARIN 40 MG/0.4 ML (LOVENOX) SYR SC SCH (08:40)
--- NOTE | 2020-09-22 11:11 | Progress Note - Hospitalist ---
Subjective HPI/CC On Admission Date Seen by Provider: Sep 22, 2020 Time Seen by Provider: 10:00 Subjective/Events-last exam Pt just not ready to go home Sleepy and lying down right now Oxygen will need to be ordered at 2 liters continuous for discharge tomorrow Will initiate PT to get him up and around Review of Systems General: Fatigue, Malaise Pulmonary: Dyspnea Objective Exam Vital Signs Vital Signs Date Time Temp Pulse Resp B/P (MAP) Pulse Ox O2 Delivery O2 Flow Rate FiO2 09/23/20 01:48 93 Nasal Cannula 2.00 09/22/20 23:54 36.4 81 20 105/54 (71) 09/21/20 13:19 28 Capillary Refill : Less Than 3 SecondsLess Than 3 Seconds General Appearance: No Apparent Distress, WD/WN, Chronically ill Respiratory: Chest Non Tender, Normal Breath Sounds, No Accessory Muscle Use, No Respiratory Distress, Crackles Cardiovascular: Regular Rate, Rhythm, No Edema, No Gallop, No JVD, No Murmur, Normal Peripheral Pulses Neurologic/Psychiatric: Alert, Oriented x3, No Motor/Sensory Deficits, Depressed Affect Results/Procedures Lab Laboratory Tests 09/22/20 05:47 Patient resulted labs reviewed. Assessment/Plan Assessment and Plan Assess & Plan/Chief Complaint Assessment: COVID-19 PNA Lung cancer Hypoxia Chronic O2 dependency Plan: DC home tomorrow 09/22/20: DC home tomorrow not ready today O2 dependence TISH CHI DO Sep 22, 2020 11:11
--- NOTE | 2020-09-22 14:03 | Physical Therapy Evaluation ---
PT Evaluation-General Medical Diagnosis Admission Date Sep 16, 2020 at 20:15 Medical Diagnosis: SOB, covid, flu B Onset Date: Sep 16, 2020 Therapy Diagnosis Therapy Diagnosis: impaired endurance Height/Weight Height (Feet): 5 Height (Inches): 7.00 Weight (Pounds): 198 Weight (Ounces): 7.7 Precautions Precautions/Isolations: Contact Isolation, Droplet Isolation Referral Physician: Jamee Garibay DO Reason for Referral: Evaluation/Treatment Medical History Pertinent Medical History: COPD, DM, Rheumatoid Arthritis, Smoking Additional Medical History Past Medical History PMHx: Rhuematoid Arthritis Pulmonary Fibrosis Hypertension Non Insulin Dependent DM Psoriasis HLD Reviewed History: Yes Social History Home: Apartment Current Living Status: Alone Entry Into Home: Elevator Prior Prior Level of Function SCALE: Activities may be completed with or without assistive devices. 2-Vdagwdpegw-tjlzruv completes the activity by him/herself with no assistance from a helper. 5-Set-up or Clean-up Assistance-helper sets up or cleans up; patient completes activity. [place] assists only prior to or following the activity. 4-Supervision or Touching Assistance-helper provides verbal cues and/or touching/steadying and/or contact guard assistance as patient completes activity. Assistance may be provided throughout the activity or intermittently. 3-Partial/Moderate Assistance-helper does LESS THAN HALF the effort. [place] lifts, holds or supports trunk or limbs, but provides less than half the effort. 2-Substantial/Maximal Assistance-helper does MORE THAN HALF the effort. [place] lifts or holds trunk or limbs and provides more than half the effort. 6-Lxlymokud-qwksfo does ALL the effort. Patient does none of the effort to complete the activity. Or, the assistance of 2 or more helpers is required for the patient to complete the activity. If activity was not attempted, code reason: 7-Patient Refused. 9-Not Applicable-not attempted and the patient did not perform the activity before the current illness, exacerbation or injury. 10-Not Attempted due to Environmental Limitations-(lack of equipment, weather restraints, etc.). 88-Not Attempted due to Medical Conditions or Safety Concerns. Bed Mobility: 6 Transfers (B,C,W/C): 6 Gait: 6 Indoor Mobility (Ambulation): Independent Patient states he was using a rolling walker and SPC previously PT Evaluation-Current Subjective Patient in bed pre tx, agrees to PT, has unrated pain in chest, he says his lungs hurt and on his behind. He would like pain meds and nurse was notified. Pt/Family Goals "to get better and get out of the hospital" Objective Patient Orientation: Person, Place, Situation Attachments: Oxygen, IV ROM/Strength ROM Lower Extremities WNL Strength Lower Extremities 5/5 gross BLE Sensory Vision: Functional Hearing: Functional Sensation Right Lower Extremit: Intact Sensation Left Lower Extremity: Intact Transfers Roll Left to Right (QC): 6 Sit to Lying (QC): 6 Lying to Sitting/Side of Bed(Q: 6 Sit to Stand (QC): 6 Chair/[place] Xfer(QC): 6 Gait Does the Patient Walk?: Yes Mode of Locomotion: Walk Anticipated Mode of Locomotion: Walk Walk 10 feet (QC): 4 Distance: 20' Comments/Gait Description Patient ambulated 20' in his room, pushing the IV pole, he had steady ambulation but his endurance is poor, he was very SOB after ambulating but recovered with purse lip breathing fairly quickly after sitting on the side of the bed. Patient states he has been ambulating to the restroom without difficulty. Balance Sitting Static: Normal Sitting Dynamic: Normal Standing Static: Normal Standing Dynamic: Normal Treatment BLE seated exercises x20 (AP, LAQ) Assessment/Needs Patient has impaired endurance, patient is very SOB after ambulation. Patient back to bed post tx with nurse call, phone, tray, all needs met. Rehab Potential: Fair PT Erecting Engineer Goals Erecting Engineer Goals PT Erecting Engineer Goals Time Frame: Sep 29, 2020 Roll Left & Right (QC): 6 Sit to Lying (QC): 6 Lying-Sitting on Side/Bed(QC): 6 Sit to Stand (QC): 6 Chair/Wps-zy-Nzwbz Xfer(QC): 6 Walk 10 feet (QC): 6 Walk 50ft with 2 Turns (QC): 6 PT Plan Problem List Problem List: Activity Tolerance, Functional Strength, Safety, Balance, Gait, Transfer Treatment/Plan Treatment Plan: Continue Plan of Care Treatment Plan: Education, Functional Activity Mimi, Functional Strength, Gait, Safety, Therapeutic Exercise, Transfers Treatment Duration: Sep 29, 2020 Frequency: 6 times per week Estimated Hrs Per Day: .25 hour per day Patient and/or Family Agrees t: Yes Safety Risks/Education Patient Education: Gait Training, Transfer Techniques, Correct Positioning, Safety Issues Teaching Recipient: Patient Teaching Methods: Demonstration, Discussion Response to Teaching: Reinforcement Needed Discharge Recommendations Plan Patient will perform bed mobility and transfer training, balance and endurance training, functional strengthening, gait training, and education, to improve functional mobility and independence at home. Therapy Discharge Recommendati: Home & Family Time/GCodes Time In: 1335 Time Out: 1345 Total Billed Treatment Time: 10 Total Billed Treatment 1 visit CARLITOS DING PT Sep 22, 2020 14:03
[2020-09-22 16:06] VITALS: BP 113/65
[2020-09-22 23:54] VITALS: BP 105/54
[2020-09-23] MEDS: RT-ALBUTEROL INHALER HFA (VENTOLIN HFA) 18 GM IH SCH ×4 (01:48→14:14)
[2020-09-23] MEDS: IPRATROPIUM INHALER (ATROVENT) 12.9 GM INH SCH ×4 (01:48→14:14)
[2020-09-23] MEDS: inSUlin ASPART (NovoLOG) 1 UNIT/0.01 ML (CHARGE PER UNIT) SC SCH ×2 (05:09→11:15)
[2020-09-23] MEDS: HYDROcodone/APAP 5 MG/325 MG (LORTAB) TAB PO PRN ×2 (05:10→11:16)
[2020-09-23] MEDS: fentaNYL INJECTION 100 MCG/2 ML AMP IVP PRN ×3 (05:10→14:15)
[2020-09-23] MEDS: NS IV 1000 ML 1,000 ML IV SCH (05:11)
[2020-09-23 06:10] LABS: BASOPHILS % (AUTO) 0 % (0-10); EOSINOPHILS # (AUTO) 0.2 10^3/uL (0.0-0.3); EOSINOPHILS % (AUTO) 2 % (0-10); HEMATOCRIT 40 % (40-54); HEMOGLOBIN 12.3 g/dL (13.3-17.7); LYMPHOCYTES # (AUTO) 2.3 10^3/uL (1.0-4.0); LYMPHOCYTES % (AUTO) 17 % (12-44); MEAN CORPUSCULAR HEMOGLOBIN 28 pg (25-34); MEAN CORPUSCULAR HGB CONC 31 g/dL (32-36); MEAN CORPUSCULAR VOLUME 88 fL (80-99); MEAN PLATELET VOLUME 10.3 fL (9.0-12.2); MONOCYTES # (AUTO) 0.8 10^3/uL (0.0-1.0); MONOCYTES % (AUTO) 6 % (0-12); NEUTROPHILS # (AUTO) 10.3 10^3/uL (1.8-7.8); NEUTROPHILS % (AUTO) 75 % (42-75); PLATELET COUNT 258 10^3/uL (130-400); WHITE BLOOD COUNT 13.8 10^3/uL (4.3-11.0)
[2020-09-23 06:28] LABS: ALBUMIN 3.4 GM/DL (3.2-4.5)
[2020-09-23 06:29] LABS: CHLORIDE 100 MMOL/L (98-107); POTASSIUM 4.3 MMOL/L (3.6-5.0); SODIUM 137 MMOL/L (135-145)
[2020-09-23 06:31] LABS: GLUCOSE 166 MG/DL (70-105); TOTAL PROTEIN 6.7 GM/DL (6.4-8.2)
[2020-09-23 06:32] LABS: CARBON DIOXIDE 28 MMOL/L (21-32)
[2020-09-23 06:33] LABS: BILIRUBIN,TOTAL 0.4 MG/DL (0.1-1.0)
[2020-09-23 06:34] LABS: ALKALINE PHOSPHATASE 119 U/L (40-136)
[2020-09-23 06:35] LABS: CREATININE SERUM 0.69 MG/DL (0.60-1.30); GFR ESTIMATED > 60
[2020-09-23 06:36] LABS: BUN/CREATININE RATIO 23
[2020-09-23 06:37] LABS: ALANINE AMINOTRANSFERASE 17 U/L (0-55)
[2020-09-23] MEDS: ADVAIR HFA 115/21 MCG INHALER 8 GM IH SCH (07:14)
[2020-09-23 08:00] VITALS: BP 133/77
[2020-09-23] MEDS: FOLIC ACID 1 MG TAB PO SCH (09:10)
[2020-09-23] MEDS: ENOXAPARIN 40 MG/0.4 ML (LOVENOX) SYR SC SCH (09:10)
[2020-09-23] MEDS: PREGABALIN 75 MG (LYRICA) CAP PO SCH (09:13)
[2020-09-23] MEDS ORDERED: DEXA6TAB6 PO (11:53)
[2020-09-23] MEDS ORDERED: FLUT12AE4 IH (11:53)
--- NOTE | 2020-09-23 11:54 | Discharge Summary ---
Discharge Summary Hospital Course Was the Problem List Reviewed?: Yes Problems/Dx: (1) COVID-19 virus infection Status: Acute (2) Left upper lobe pneumonia Status: Acute Qualifiers: Qualified Codes: J18.9 - Pneumonia, unspecified organism (3) Mass of left lung Status: Acute Hospital Course Date of Admission: Sep 16, 2020 at 20:15 Admission Diagnosis : Family Physician/Provider: Kaya Reyez MD Date of Discharge: 09/23/20 Discharge Diagnosis: COVID-19 PNA, lung cancer Hospital Course: Hospital Course: Pt had a lengthy hospital course for 8 days after he was admitted for Covid pneumonia with metastatic lung cancer and exacerbation of COPD. He underwent treatment with Decadron and supportive care and Pt was followed closely. He did not require any type of intubation, he did require Vapotherm transition down to 2 liters of his home O2 maintenance dose. PT as ordered and he was overall deemed stable for DC with close follow up with [facility]. Labs and Pending Lab Test: Laboratory Tests 09/22/20 16:06: Glucometer 245H 09/22/20 19:56: Glucometer 209H 09/23/20 05:09: Glucometer 141H 09/23/20 05:55: White Blood Count 13.8H, Red Blood Count 4.47, Hemoglobin 12.3L, Hematocrit 40, Mean Corpuscular Volume 88, Mean Corpuscular Hemoglobin 28, Mean Corpuscular Hemoglobin Concent 31L, Red Cell Distribution Width 18.7H, Platelet Count 258, Mean Platelet Volume 10.3, Immature Granulocyte % (Auto) 1, Neutrophils (%) (Auto) 75, Lymphocytes (%) (Auto) 17, Monocytes (%) (Auto) 6, Eosinophils (%) (Auto) 2, Basophils (%) (Auto) 0, Neutrophils # (Auto) 10.3H, Lymphocytes # (Auto) 2.3, Monocytes # (Auto) 0.8, Eosinophils # (Auto) 0.2, Basophils # (Auto) 0.0, Immature Granulocyte # (Auto) 0.2H, Sodium Level 137, Potassium Level 4.3, Chloride Level 100, Carbon Dioxide Level 28, Anion Gap 9, Blood Urea Nitrogen 16, Creatinine 0.69, Estimat Glomerular Filtration Rate > 60, BUN/Creatinine Ratio 23, Glucose Level 166H, Calcium Level 9.0, Corrected Calcium 9.5, Total Bilirubin 0.4, Aspartate Amino Transf (AST/SGOT) 17, Alanine Aminotransferase (ALT/SGPT) 17, Alkaline Phosphatase 119, Total Protein 6.7, Albumin 3.4 09/23/20 11:05: Glucometer 231H Microbiology 09/16/20 Blood Culture - Final, Complete No growth 09/16/20 Influenza Types A,B Antigen ([place]) - Final, Complete Home Meds Active Decadron (Dexamethasone) 6 Mg Tablet 6 Mg PO DAILY Advair Hfa 115-21 Mcg Inhaler (Fluticasone/Salmeterol) 12 Gm Hfa.aer.ad 0 Puff IH RTBID Reported Methotrexate (Methotrexate Sodium) 2.5 Mg Tablet 17.5 Mg PO TUES Furosemide 20 Mg Tablet 20 Mg PO Q48H Folic Acid 1 Mg Tablet 1 Mg PO DAILY Pregabalin 75 Mg Capsule 150 Mg PO BID TAKES 2 (75MG) CAPS Invokana (Canagliflozin) 300 Mg Tablet 300 Mg PO DAILY Glipizide 10 Mg Tablet 10 Mg PO BID Albuterol Sulfate 2.5 Mg/3 Ml Vial.neb 2.5 Mg NEB Q4H PRN Atorvastatin Calcium 40 Mg Tablet 40 Mg PO HS Ventolin Hfa (Albuterol Sulfate) 18 Gm Hfa.aer.ad 2 Puff IH Q4H PRN Assessment/Pt Instructions [facility] 1 week Discharge Planning: <30 minutes discharge planning Discharge Instructions Discharge Diet: No Restrictions Activity as Tolerated: Yes Discharge Physical Examination Vital Signs Vital Signs Date Time Temp Pulse Resp B/P (MAP) Pulse Ox O2 Delivery O2 Flow Rate FiO2 09/23/20 08:00 36.0 87 18 133/77 (95) 94 Nasal Cannula 2.00 09/21/20 13:19 28 General Appearance: No Apparent Distress, WD/WN, Chronically ill Respiratory: Lungs Clear Cardiovascular: Regular Rate, Rhythm Allergies: Coded Allergies: celecoxib (Unverified Allergy, Unknown, 12/22/18) UPSET STOMACH naproxen (Unverified Allergy, Unknown, 12/22/18) UPSET STOMACH Discharge Summary Date of Admission Sep 16, 2020 at 20:15 Date of Discharge Discharge Date: Sep 23, 2020 Discharge Diagnosis Assessment: COVID-19 PNA Lung cancer Hypoxia Chronic O2 dependency Plan: DC home tomorrow 09/22/20: DC home tomorrow not ready today O2 dependence CHI,TISH DO Sep 23, 2020 11:54
--- NOTE | 2020-09-23 11:54 | D/C HH Face to Face Order ---
D/C Face to Face Orders Reconcile Patient Problems Problems Reviewed?: Yes Instructions for Patient Home Health Patient Instructions/FollowUp: PCP 1 week Physician to follow Patient: [facility] Discharge Diet for Home: ADA Diet Patient Problems: COVID-19 PNA Hypoxia DM Patient Data-Allergies,Ht & Wt Patient Allergies: Coded Allergies: celecoxib (Unverified Allergy, Unknown, 12/22/18) UPSET STOMACH naproxen (Unverified Allergy, Unknown, 12/22/18) UPSET STOMACH Height (Feet): 5 Height (Inches): 7.00 Weight (Pounds): 198 Weight (Ounces): 7.7 Home Health Need/Face to Face Date of Face to Face: Sep 23, 2020 Clinical Findings: Generalized weakness and fatigue, Muscle weakness, Shortness of breath I have seen Pt icip-gs-irks: Yes Discharged To: Home Diagnosis/Conditions: COVID-19 PNA Hypoxia DM Patient is Homebound due to: [place] fall risk due to instabilty, Muscle weakness, Shortness of breath/distress Homebound Status Due to the above stated illness, injury or surgical procedure (medical condition or diagnosis) and associated clinical findings, the patient is homebound because of his/her inability to leave home except with aid of a supportive device and/or person AND leaving the home requires a considerable and taxing effort or is medically contraindicated. Pt req the following assistanc: Walker Home Health Nursing Orders Home Health Services Order: Nursing Services, Pot Washer-Evaluate & Treat, Physical Therapy-Evaluate & Treat Home Health Infusion Therapy Line Start Date: Sep 18, 2020 Certify Stmt I certify that this patient is under my care and that I, a nurse practitioner or a physician; a driller's assistant working with me, had a face to face encounter that - meets the physician face to face encounter requirements with this patient as dated. TISH CHI DO Sep 23, 2020 11:54
[2020-09-23 15:14] VITALS: BP 133/77
== END 2020-09-23 15:29 | disposition home health service (06) | DRG 177 ==
LOC: EDUNIT# 18:01 → ER 18:02 → 4TH 20:15
PROVIDERS: ADMIT Family Medicine; ATTEND Family Medicine
PROC: XW033E5 Introduction of Remdesivir Anti-infective into Peripheral Vein, Percutaneous Approach, New Technology Group 5 (ICD-10-PCS; principal; 2020-09-17)
DX: U07.1 COVID-19 (principal); J12.82 Pneumonia due to coronavirus disease 2019; J10.08 Influenza due to other identified influenza virus with other specified pneumonia; J44.0 Chronic obstructive pulmonary disease with (acute) lower respiratory infection; J44.1 Chronic obstructive pulmonary disease with (acute) exacerbation; C79.51 Secondary malignant neoplasm of bone; C34.12 Malignant neoplasm of upper lobe, left bronchus or lung; E11.9 Type 2 diabetes mellitus without complications; I45.10 Unspecified right bundle-branch block; E78.00 Pure hypercholesterolemia, unspecified; J84.10 Pulmonary fibrosis, unspecified; I10 Essential (primary) hypertension; E78.5 Hyperlipidemia, unspecified; M06.9 Rheumatoid arthritis, unspecified; H54.7 Unspecified visual loss; Z87.891 Personal history of nicotine dependence; Z99.81 Dependence on supplemental oxygen; Z87.01 Personal history of pneumonia (recurrent); Z79.2 Long term (current) use of antibiotics; Z79.52 Long term (current) use of systemic steroids; Z79.84 Long term (current) use of oral hypoglycemic drugs; Z88.6 Allergy status to analgesic agent
CPT/HCPCS: 36415; 71045; 80053; 82550; 82553; 82805; 82962; 83605; 83615; 83735; 83874; 83880; 84145; 84484; 85007; 85025; 85027; 85610; 85652; 85730; 86141; 87040; 87635; 87804; 93005; 93041; 94640; 94760; 94761